=== PATIENT | male | born 1950 | race Caucasian/White ===

== ENCOUNTER 2016-04-01 06:29 | Day surgery (SDC) | payer BC, OTHER ==
[2016-04-01 07:31] VITALS: BMI 23.0
[2016-04-01] MEDS ORDERED: PROPOFOL 20 ML ONE ×3 (08:08)
[2016-04-01] MEDS ORDERED: LIDOCAINE HCL/PF 1% SDV 5ML VIAL ONE (08:08)
[2016-04-01] MEDS ORDERED: BACITRACIN 0.9 GM PACKET ONE (08:08)
[2016-04-01 12:37] VITALS: BP 120/76; PULSE 72; TEMP 97.9
--- NOTE | 2016-04-02 12:29 | PATH ---
Surgical Pathology Report Patient Name: RONALD DRAPER [facility] Rec. #: [id number] /Age/Gender: 1950 (Age: 66) / M Account: [id number] Location: ASU-ENDOSCOPY Taken: 04/01/2016 Received: 04/01/2016 Reported: 04/02/2016 Physicians: Felipe Holder M.D. Specimen(s) Received DESCENDING COLON POLYP Clinical History Screening colonoscopy Diverticulosis, descending colon polyp, grade 2 hemorrhoids Final Diagnosis COLON, DESCENDING, POLYP, POLYPECTOMY: TUBULAR ADENOMA. ADDITIONAL FRAGMENT OF FOCALLY HYPERPLASTIC COLONIC MUCOSA. Electronically Signed Inderjit Tucker M.D. Gross Description Received in formalin, labeled "descending colon polyp" are 2 russ, irregular portions of soft tissue measuring 0.3 and 0.4 cm in greatest dimension. The specimens are submitted in toto in one cassette. 04/01/201604/01/2016
== END 2016-04-01 09:55 | disposition home or self-care (01) ==
LOC: JASU-ENDO 06:29
PROVIDERS: ATTEND Internal Medicine Gastroenterology
PROC: 0DBM8ZX Excision of Descending Colon, Via Natural or Artificial Opening Endoscopic, Diagnostic (ICD-10-PCS; principal; 2016-04-01 08:00)
DX: Z12.11 Encounter for screening for malignant neoplasm of colon (principal); K57.30 Diverticulosis of large intestine without perforation or abscess without bleeding; D12.4 Benign neoplasm of descending colon; K64.8 Other hemorrhoids
CPT/HCPCS: 88305-TC

== ENCOUNTER 2016-05-16 10:26 | Inpatient (IN) | payer BC, OTHER ==
--- NOTE | 2016-05-16 10:33 | PDOC ---
History of Present Illness <Felipe Bhatt - Last Filed: 05/16/16 16:18> - History of Present Illness Initial Comments: 05/16/16 10:57 The patient is a 66 year old male with a past medical hx of COPD, former cigarette smoker who presents to the ED sent by Dr. Castillo complaining of SOB, dizziness, vomiting, and headache for a few days. The patient describes his dizziness as if the room is spinning. He notes he was vomiting when he had his first episode of dizziness. The patient reports he has not been able to eat in a few days secondary to his nausea and vomiting. The patient reports he went to see his PCP, Dr. Castillo, today who sent him to the ED for further evaluation and workup. The patient is not O2 dependent at home. He reports the last time he took Prednisone for his COPD was on Friday (4 days ago). The patient notes he is scheduled to see Dr. Lawson for this first time on May 22. He denies diarrhea, abdominal pain He denies chest pain He denies fever, chills Social: Former smoker. <Macy Mitchell - Last Filed: 05/16/16 16:25> - General Chief Complaint: Lightheaded Stated Complaint: SOB, DIZZINESS (PCP SENT) Time Seen by Provider: 05/16/16 10:32 Past History - Past Medical History Anemia: No Asthma: No COPD: Yes (HX OF PNEUMONIA) GI Disorders: Yes (COLON POLYPS) - Surgical History Abdominal Surgery: Yes (LT INGUINAL AND UMBILICAL) Orthopedic Surgery: Yes (RT ROTATOR CUFF SHOULDER) - Psycho/Social/Smoking Cessation Hx Anxiety: No Suicidal Ideation: No Smoking History: Former smoker Have you smoked in the past 12 months: No If you are a former smoker, when did you quit?: 1987 Information on smoking cessation initiated: No Hx Alcohol Use: No Drug/Substance Use Hx: No Substance Use Type: None Hx Substance Use Treatment: No <Felipe Bhatt - Last Filed: 05/16/16 16:18> <Macy Mitchell - Last Filed: 05/16/16 16:25> - Past Medical History Allergies/Adverse Reactions: Allergies Allergy/AdvReac Type Severity Reaction Status Date / Time morphine AdvReac Severe Vomiting Verified 05/16/16 12:43 oxycodone AdvReac Severe Vomiting Verified 05/16/16 12:43 Home Medications: Ambulatory Orders Fluticasone/Salmeterol [Advair 250-50 Diskus] 500 each IH BID 04/22/15 Acidophilus/Bifido Longum [Lactobacillus Capsule] 16 mg PO DAILY #14 capsule 01/02 Albuterol Sulfate [Proair Respiclick] 90 mcg IH PRN #1 aer.pow.[email or web address] 04/28/15 Roflumilast [Daliresp -] 500 mcg PO DAILY #30 tablet 04/28/15 Aspirin Coated [Ecotrin -] 81 mg PO DAILY #0 08/25/15 Atorvastatin Calcium 10 mg PO HS 08/25/15 Zolpidem Tartrate [Zolpidem Tartrate ER] 12.5 mg PO DAILY 08/25/15 Betamethasone/Propylene Glyc [Betamethasone Dp Aug 0.05% Crm] 15 gm TP DAILY Cholecalciferol (Vitamin D3) [Vitamin D3 -] 1,000 unit PO DAILY 04/01/16 Gabapentin [Neurontin -] 200 mg PO 0600,1200,1800 04/01/16 Gabapentin [Neurontin] 300 mg PO DAILY 04/01/16 Review of Systems - Review of Systems Able to Perform ROS?: Yes Comments:: 05/16/16 10:58 GENERAL/CONSTITUTIONAL: No fever or chills. No weakness. HEAD, EYES, EARS, NOSE AND THROAT: No change in vision. No ear pain or discharge. No sore throat. CARDIOVASCULAR: No chest pain RESPIRATORY: +Shortness of breath. No cough, wheezing, or hemoptysis. GASTROINTESTINAL: +Nausea, vomiting. No diarrhea or constipation. GENITOURINARY: No dysuria, frequency, or change in urination. MUSCULOSKELETAL: No joint or muscle swelling or pain. No neck or back pain. SKIN: No rash NEUROLOGIC: +Dizziness, headache. No loss of consciousness, or change in strength/sensation. ENDOCRINE: No increased thirst. No abnormal weight change. HEMATOLOGIC/LYMPHATIC: No anemia, easy bleeding, or history of blood clots. ALLERGIC/IMMUNOLOGIC: No hives or skin allergy. <Macy Mitchell - Last Filed: 05/16/16 16:25> *Physical Exam - Vital Signs Last Vital Signs Temp Pulse Resp BP Pulse Ox 97.6 F 82 18 116/68 92 L 05/16/16 10:29 05/16/16 10:29 05/16/16 10:29 05/16/16 10:29 05/16/16 10:29 <Felipe Bhatt - Last Filed: 05/16/16 16:18> - Vital Signs Last Vital Signs Temp Pulse Resp BP Pulse Ox 97.6 F 82 18 116/68 92 L 05/16/16 10:29 05/16/16 10:29 05/16/16 10:29 05/16/16 10:29 05/16/16 10:29 - Physical Exam Comments: 05/16/16 10:58 GENERAL: Awake, alert, and fully oriented, in no acute distress HEAD: No signs of trauma EYES: +Nystagmus. PERRLA, EOMI, sclera anicteric, conjunctiva clear ENT: Auricles normal inspection, hearing grossly normal, nares patent, oropharynx clear without exudates. Moist mucosa NECK: Normal ROM, supple, no lymphadenopathy, JVD, or masses LUNGS: +Diffuse wheezing and rhonchi. HEART: Regular rate and rhythm, normal S1 and S2, no murmurs, rubs or gallops ABDOMEN: Soft, nontender, normoactive bowel sounds. No guarding, no rebound. No masses EXTREMITIES: Normal range of motion, no edema. No clubbing or cyanosis. No cords, erythema, or tenderness NEUROLOGICAL: Cranial nerves II through XII grossly intact. Normal speech, normal gait SKIN: Warm, Dry, normal turgor, no rashes or lesions noted. <Macy Mitchell - Last Filed: 05/16/16 16:25> Heart Score/ECG Review - ECG Impressions Comment:: 05/16/16 11:[address] Bhatt NSR at a rate of 79 BPM Normal rate Normal axis Normal EKG <Macy Mitchell - Last Filed: 05/16/16 16:25> ED Treatment Course - LABORATORY CBC & Chemistry Diagram: 05/16/16 10:55 05/16/16 10:55 <Felipe Bhatt - Last Filed: 05/16/16 16:18> - LABORATORY CBC & Chemistry Diagram: 05/16/16 10:55 05/16/16 10:55 - RADIOLOGY Radiograph Interpretation: 05/16/16 12:45 Chest XRAY Vertigo. Chest 2 views. Comparison study April 24, 2015, April 22, 2015. No evidence of widening of the superior mediastinum. Calcified aortic arch. The cardiac silhouette is not enlarged. Bullous changes are noted in bilateral lungs. Increased retrosternal space. No evidence of vascular congestion. No evidence of pulmonary infiltrates, atelectasis. Chronic blunting of the left costophrenic angle. Impression COPD. No evidence of pneumonia, pneumothorax. Reported By: Madi Oleary MD 05/16/16 1240 05/16/16 14:54 CT scan of the brain c-. Vertigo, dizziness. Findings. Serial axial images of the brain were obtained from foramen magnum to the cranial vertex without intravenous contrast. The study was supplemented with computer-generated coronal and sagittal reconstruction images. [employer] image was reviewed. There is no evidence of acute subarachnoid hemorrhage, acute intra-axial or extra-axial fluid collection consistent with subdural or epidural hematoma. No mass effect, midline shift, acute territorial ischemic changes, herniation or edema is present. Normal [place] matter white matter differentiation. The cortical sulci, sylvian fissures, perimesencephalic cisterns are not effaced. The CSF spaces are age-appropriate Examination of the bone windows show no fracture. The visualized paranasal sinuses and mastoid air cells are clear. Symmetrical optic globes. Unremarkable retro-orbital soft tissues. Impression. No evidence of acute intracranial hemorrhage, edema, midline shift, mass effect , or skull fracture. No CT evidence of acute territorial infarction Reported By: Madi Oleary MD 05/16/16 1426 <Macy Mitchell - Last Filed: 05/16/16 16:25> Medical Decision Making - Medical Decision Making 05/16/16 16:[address] Hammond at 1445. Called Dr. Hammond at 1600, press secretary informed he is on vacation. Placed call to Dr. Castillo at 1610, patients case was discussed. 05/16/16 16:24 The patient is a 66 year old male with a past medical hx of COPD, former cigarette smoker who presents to the ED sent by Dr. Castillo complaining of SOB, dizziness, vomiting, and headache for a few days. On physical exam, the patient has wheezing and rhonchi. The patient has an appointment with Dr. Lawson on May 22. The plan is to order labs, CXR, EKG. Discussed the patients case with Dr. Castillo who would like Dr. Bhatt to consult Dr. Lawson and Neurology. Microblogged the Hospitalist. Discussed the case with Dr. Post who agrees to admit the patient. Discussed the plan for admission with the patient who understands and agrees with the plan, all questions answered. <Macy Mitchell - Last Filed: 05/16/16 16:25> *DC/Admit/Observation/Transfer - Discharge Dispostion Admit: Yes - Attestations Physician Attestion: 05/16/16 10:33 I, Dr. Felipe Bhatt, attest that this document has been prepared under my direction and personally reviewed by me in its entirety. I further attest, that it accurately reflects all work, treatment, procedures and medical decision -making performed by me. <Felipe Bhatt - Last Filed: 05/16/16 16:18> - Attestations Scribe Attestion: 05/16/16 10:57 Documentation prepared by Macy Mitchell, acting as medical assistant prn for Felipe Bhatt MD/DO. <Macy Mitchell - Last Filed: 05/16/16 16:25> Diagnosis at time of Disposition: Vertigo, Acute exacerbation of COPD with asthma Intractable nausea and vomiting Qualifiers: Vomiting type: unspecified Qualified Code(s): R11.2 - Nausea with vomiting, unspecified - Discharge Dispostion Condition at time of disposition: Improved - Referrals Referrals: Dm Castillo MD [Primary Care Provider] -
[2016-05-16] MEDS ORDERED: ALBUTEROL SO4 0.083% IH SOL 2.5 MG/3 ML VIAL.NEB. NEB ONE (10:49)
[2016-05-16] MEDS ORDERED: ALBUTEROL SO4 2.5/IPRATROPIUM 0.5 INH SOL 3 ML VIAL.NEB. NEB ONE ×2 (10:49→11:01)
[2016-05-16] MEDS ORDERED: methylPREDNISolone NA SUCC 125 MG/2 ML VIAL IVPB ONE (10:49)
[2016-05-16] MEDS ORDERED: ONDANSETRON 4 MG/2 ML VIAL IVPB ONE ×2 (10:49→13:12)
[2016-05-16] MEDS ORDERED: MECLIZINE HCL 25 MG TABLET (FP) PO ONE (10:49)
[2016-05-16] MEDS ORDERED: MECLIZINE HCL 25 MG TABLET (FP) ONE (11:00)
[2016-05-16] MEDS ORDERED: ONDANSETRON 4 MG/2 ML VIAL ONE ×3 (11:01→13:25)
[2016-05-16] MEDS ORDERED: methylPREDNISolone NA SUCC 125 MG/2 ML VIAL ONE (11:01)
[2016-05-16 11:10] LABS: MCH 31.2 pg (25.7-33.7); MCHC 31.9 g/dl (32.0-35.9); MEAN CELL VOLUME 97.8 fl (80-96); MEAN PLT VOLUME 7.3 fl (7.5-11.1); PLATELET COUNT 230 K/MM3 (134-434); RDW 13.5 % (11.9-15.9)
[2016-05-16 11:55] LABS: ALBUMIN 3.2 g/dl (3.4-5.0); ANION GAP 9 (8-16); BILIRUBIN,TOTAL 1.4 mg/dL (0.2-1.0); CALCIUM 9.1 mg/dL (8.5-10.1); CO2 29 mmol/L (21-32); GLUCOSE,RANDOM 84 mg/dL (74-106); SGOT/AST 16 U/L (15-37); SGPT/ALT 27 U/L (12-78); TOT PROT 6.4 g/dl (6.4-8.2)
[2016-05-16 11:57] LABS: ALK PHOS 93 U/L (45-117); TROPONIN I < 0.02 ng/ml (0.00-0.05)
[2016-05-16 12:00] LABS: INR 1.21 (0.82-1.09); PROTHROMBIN TIME (PATIENT) 13.4 SEC (9.98-11.88)
[2016-05-16 12:08] LABS: PLATELET ESTIMATE ADEQUATE (NORMAL)
--- NOTE | 2016-05-16 12:17 | EKG ---
Test Reason : Blood Pressure : / mmHG Vent. Rate : 079 BPM Atrial Rate : 079 BPM P-R Int : 124 ms QRS Dur : 080 ms QT Int : 390 ms P-R-T Axes : -12 065 052 degrees QTc Int : 447 ms NORMAL SINUS RHYTHM NORMAL ECG WHEN COMPARED WITH ECG OF 24-APR-2015 16:43, NO SIGNIFICANT CHANGE WAS FOUND Confirmed by MERCEDSE RICHARDSON MD ([id number]) on 05/16/2016 12:17:24 PM Referred By: Confirmed By:MERCEDES RICHARDSON MD
[2016-05-16] MEDS ORDERED: PROCHLORPERAZINE INJECTION 10 MG/2 ML VIAL IVPB ONE (13:12)
[2016-05-16] MEDS ORDERED: PROMETHAZINE HCL 50 MG/1 ML AMP IM ONE (13:32)
[2016-05-16] MEDS ORDERED: PROMETHAZINE HCL 25 MG/1 ML VIAL ONE (13:32)
[2016-05-16] MEDS ORDERED: LORazepam 1 MG TABLET PO ONE (16:07)
[2016-05-16] MEDS ORDERED: LORazepam 0.5 MG TABLET ONE (16:14)
[2016-05-16] MEDS ORDERED: LEVOFLOXACIN 750 MG IVPB 150 ML IVPB ONE ×2 (16:17→16:30)
--- NOTE | 2016-05-16 17:12 | HP ---
PCP: Dm Castillo CHIEF COMPLAINT: Shortness of breath HISTORY OF PRESENT ILLNESS: This is a 66-year-old man who comes to the ER complaining of shortness of breath. He has a history of COPD. He has been feeling more short of breath than usual for about one week. He has had a cough that was initially productive of white sputum but is now non-productive. He denies fever, chills, chest pain, palpitations, leg edema. He has also been feeling dizzy with headache, nausea and vomiting for the last few days. He felt like the room was spinning. The dizziness is worse when sitting or standing. He denies ear pain, tinnitus, visual changes, facial pain, nasal congestion. He has been on oral steroids intermittently. PAST MEDICAL HISTORY COPD Hyperlipidemia PAST SURGICAL HISTORY Left inguinal hernia repair Umbilical hernia repair Right rotator cuff repair Allergies morphine Adverse Reaction (Severe, Verified 05/16/16 12:43) Vomiting oxycodone Adverse Reaction (Severe, Verified 05/16/16 12:43) Vomiting HOME MEDICATIONS 3 Medication Instructions Recorded Fluticasone/Salmeterol [Advair 500 each IH BID 04/22/15 250-50 Diskus] Acidophilus/Bifido Longum 16 mg PO DAILY #14 capsule 04/28/15 [Lactobacillus Capsule] Albuterol Sulfate [Proair 90 mcg IH PRN #1 aer.pow.ba 04/28/15 Respiclick] Roflumilast [Daliresp -] 500 mcg PO DAILY #30 tablet 04/28/15 Aspirin Coated [Ecotrin -] 81 mg PO DAILY #0 08/25/15 Atorvastatin Calcium 10 mg PO HS 08/25/15 Zolpidem Tartrate [Zolpidem 12.5 mg PO DAILY 08/25/15 Tartrate ER] Betamethasone/Propylene Glyc 15 gm TP DAILY 04/01/16 [Betamethasone Dp Aug 0.05% Crm] Cholecalciferol (Vitamin D3) 1,000 unit PO DAILY 04/01/16 [Vitamin D3 -] Gabapentin [Neurontin -] 200 mg PO 0600,1200,1800 04/01/16 Gabapentin [Neurontin] 300 mg PO DAILY 04/01/16 Social History: Smoking: Quit in 1969 Alcohol: Denies Drugs: Denies Works as a plasterer Recent Travel: No Family History: Non-contributory REVIEW OF SYSTEMS CONSTITUTIONAL: Absent: fever, chills, diaphoresis, generalized weakness, malaise, loss of appetite, weight change HEENT: Absent: rhinorrhea, nasal congestion, throat pain, throat swelling, difficulty swallowing, mouth swelling, ear pain, eye pain, visual changes CARDIOVASCULAR: Absent: chest pain, syncope, palpitations, peripheral edema RESPIRATORY: Present: cough, shortness of breath, dyspnea with exertion. Absent : orthopnea, wheezing, stridor, hemoptysis GASTROINTESTINAL: Present: nausea, vomiting. Absent: abdominal pain, abdominal distension, diarrhea, constipation, melena, hematochezia GENITOURINARY: Absent: dysuria, frequency, urgency, hesitancy, hematuria, flank pain MUSCULOSKELETAL: Absent: myalgia, arthralgia, joint swelling, back pain, neck pain SKIN: Absent: rash, itching, pallor HEMATOLOGIC/IMMUNOLOGIC: Absent: easy bleeding, easy bruising, lymphadenopathy, frequent infections ENDOCRINE: Absent: unexplained weight gain, unexplained weight loss, heat intolerance, cold intolerance NEUROLOGIC: Present: dizziness. Absent: headache, focal weakness, paresthesias , unsteady gait, seizure, mental status changes, bladder or bowel incontinence PSYCHIATRIC: Absent: anxiety, depression, suicidal or homicidal ideation, hallucinations. PHYSICAL EXAMINATION Vital Signs Period Temp Pulse Resp BP Sys/Spence Pulse Ox Last 24 Hr 97.6 F 82-82 18-22 110-116/68-73 92-95 GENERAL: Awake, alert, and fully oriented, in no acute distress. HEAD: Normal with no signs of trauma. EYES: Pupils equal, round and reactive to light, extraocular movements intact, sclerae anicteric, conjunctivae clear. EARS, NOSE, THROAT: Ears normal, nares patent, oropharynx clear without exudates. Moist mucous membranes. NECK: Normal range of motion, supple without lymphadenopathy, JVD, or masses. LUNGS: Diminished breath sounds bilaterally. No accessory muscle use. HEART: Regular rate and rhythm, normal S1 and S2 without murmur, rub or gallop. ABDOMEN: Soft, nontender, not distended, normoactive bowel sounds, no guarding, no rebound, no masses. No hepatomegaly or splenomegaly. MUSCULOSKELETAL: Normal range of motion at all joints. No bony deformities or tenderness. No CVA tenderness. UPPER EXTREMITIES: 2+ pulses, warm, well-perfused. No cyanosis. No clubbing. No peripheral edema. LOWER EXTREMITIES: 2+ pulses, warm, well-perfused. No calf tenderness. No peripheral edema. NEUROLOGICAL: Cranial nerves II-XII intact. Normal speech. Visual velasquez intact. Strength intact, Sensation intact. PSYCHIATRIC: Cooperative. Good eye contact. Appropriate mood and affect. SKIN: Warm, dry, normal turgor, no rashes or lesions noted, normal capillary refill. Laboratory Tests 05/16/16 05/16/16 05/16/16 10:55 10:55 10:55 WBC 31.0 H* D RBC 4.61 Hgb 14.4 Hct 45.1 MCV 97.8 H MCHC 31.9 L RDW 13.5 Plt Count 230 MPV 7.3 L Neutrophils % 91.0 H Lymphocytes % 6.0 L Monocytes % 2.0 L D Band Neutrophils 1.0 D Differential Comment Manual diff done Platelet Estimate Adequate INR 1.21 H Sodium 140 Potassium 4.0 Chloride 102 Carbon Dioxide 29 Anion Gap 9 BUN 12 D Creatinine 1.0 D Creat Clearance w eGFR > 60 Random Glucose 84 Calcium 9.1 Total Bilirubin 1.4 H D AST 16 D ALT 27 D Alkaline Phosphatase 93 D Creatine Kinase 60 Troponin I < 0.02 D Total Protein 6.4 Albumin 3.2 L Chest x-ray: COPD. No acute process. EKG: Sinus rhythm, rate 79. No ischemic changes. Head CT: No hemorrhage, mass, infarct. ASSESSMENT/PLAN: This is a 66-year-old man with a history of COPD and hyperlipidemia who presented to the ER complaining of cough, SOB, headache, nausea, vomiting. He is afebrile but has WBC 31.0. He is being admitted now for treatment of an emergent condition. 1. Acute exacerbation of COPD - SoluMedrol, DuoNeb, Levaquin, oxygen to keep saturation > 90% - Hold Advair, Spiriva - Continue Daliresp - Pulmonary consult 2. Probable viral URI with labyrinthitis - Meclizine as needed for dizziness - Zofran as needed for nausea - IV fluid 3. Leukocytosis - Possibly secondary to recent steroid use - Monitor WBC 4. Hyperlipidemia - Continue Lipitor Problem List - Problem (1) Acute exacerbation of chronic obstructive pulmonary disease Code(s): J44.1 - CHRONIC OBSTRUCTIVE PULMONARY DISEASE W (ACUTE) EXACERBATION (2) Leukocytosis Code(s): D72.829 - ELEVATED WHITE BLOOD CELL COUNT, UNSPECIFIED (3) Intractable nausea and vomiting Code(s): R11.2 - NAUSEA WITH VOMITING, UNSPECIFIED Qualifiers: Vomiting type: unspecified Qualified Code(s): R11.2 - Nausea with vomiting, unspecified (4) Vertigo Code(s): R42 - DIZZINESS AND GIDDINESS (5) Hyperlipidemia Code(s): E78.5 - HYPERLIPIDEMIA, UNSPECIFIED Visit type - Emergency Visit Emergency Visit: Yes ED Registration Date: 05/16/16 Care time: The patient presented to the Emergency Department on the above date and was hospitalized for further evaluation of their emergent condition. - New Patient This patient is new to me today: Yes Date on this admission: 05/16/16 - Critical Care Critical Care patient: No
[2016-05-16] MEDS ORDERED: ACETAMINOPHEN 325 MG TABLET (FP) PO PRN (17:14)
[2016-05-16] MEDS ORDERED: ONDANSETRON 4 MG/2 ML VIAL IVPB PRN (17:14)
[2016-05-16] MEDS ORDERED: MECLIZINE HCL 25 MG TABLET (FP) PO PRN (18:18)
[2016-05-16 18:28] VITALS: BMI 22.4
[2016-05-16] MEDS: PANTOPRAZOLE 40 MG TABLET (FP) PO SCH (19:12)
[2016-05-16] MEDS: GABAPENTIN 100 MG CAPSULE (FP) PO SCH (19:12)
[2016-05-16] MEDS: HEPARIN NA (PORCINE) 5,000 UNITS/ML 1ML VIAL SQ SCH (19:13)
[2016-05-16] MEDS: methylPREDNISolone NA SUCC 40 MG/1 ML VIAL IVPB SCH (19:13)
[2016-05-16] MEDS: SODIUM CHLORIDE 1,000 ML IV SCH (19:13)
[2016-05-16] MEDS: ATORVASTATIN CA 10 MG TABLET (FP) PO SCH (21:43)
[2016-05-16] MEDS ORDERED: clonazePAM 0.5 MG TABLET PO ONE (22:26)
[2016-05-16] MEDS: ALBUTEROL SO4 2.5/IPRATROPIUM 0.5 INH SOL 3 ML VIAL.NEB. NEB SCH (23:36)
[2016-05-17] MEDS: methylPREDNISolone NA SUCC 40 MG/1 ML VIAL IVPB SCH ×3 (02:09→17:53)
[2016-05-17] MEDS: HEPARIN NA (PORCINE) 5,000 UNITS/ML 1ML VIAL SQ SCH ×3 (02:09→17:53)
[2016-05-17] MEDS: ALBUTEROL SO4 2.5/IPRATROPIUM 0.5 INH SOL 3 ML VIAL.NEB. NEB SCH ×2 (06:02→11:42)
[2016-05-17] MEDS: GABAPENTIN 100 MG CAPSULE (FP) PO SCH ×3 (06:03→18:41)
[2016-05-17 08:11] LABS: CALCIUM 8.9 mg/dL (8.5-10.1); CREATININE 0.9 mg/dL (0.7-1.3)
[2016-05-17 08:26] LABS: MCH 32.3 pg (25.7-33.7); MCHC 32.8 g/dl (32.0-35.9); MEAN CELL VOLUME 98.3 fl (80-96); MEAN PLT VOLUME 7.9 fl (7.5-11.1); NEUTROPHILS 94.3 % (42.8-82.8); PLATELET COUNT 225 K/MM3 (134-434); RDW 13.5 % (11.9-15.9); WHITE BLOOD COUNT 19.7 K/mm3 (4.0-10.0)
[2016-05-17] MEDS ORDERED: PT OWN MED DRAWER 7, Y5N ONE ×2 (08:58→21:39)
[2016-05-17] MEDS: CHOLECALCIFEROL (VITAMIN D3) 1,000 UNIT TABLET (FP) PO SCH (09:00)
[2016-05-17] MEDS: LEVOFLOXACIN 500 MG TABLET (FP) PO SCH (09:00)
[2016-05-17] MEDS: PANTOPRAZOLE 40 MG TABLET (FP) PO SCH (09:00)
[2016-05-17] MEDS: LACTOBACILLUS ACIDOPHILUS 1 EACH TAB (FP) PO SCH (09:00)
[2016-05-17] MEDS: ASPIRIN COATED 81 MG TABLET.EC PO SCH (09:00)
[2016-05-17] MEDS: ROFLUMILAST 500 MCG TABLET PO SCH (09:01)
[2016-05-17] MEDS: SODIUM CHLORIDE 1,000 ML IV SCH ×3 (09:01→22:22)
[2016-05-17] MEDS ORDERED: [UNRECOGNIZED DRUG - OTHER] PO SCH (10:00)
--- NOTE | 2016-05-17 12:33 | CONSULT ---
Consult Consult Specialty:: Neurology Reason for Consultation:: Dizziness - History of Present Illness Chief Complaint: Lightheaded History of Present Illness: 66 year old man, history of COPD, presents to ED with shortness of breath secondary to COPD exacerbation. As per records, the patient was feeling more short of breath compared to his baseline and is also noting a non productive cough. He also noted yesterday a ten hour episode of lightheadedness, associated with nausea and vomiting. He denies any room spinning sensation. No ear pain, tinnitus, previous history of similar episodes. CT head completed showed no acute pathology Patient states his symptoms have completely resolved and currently denies any lightheadedness. - Past Medical History Cardio/Vascular: Yes: Hyperlipdemia Pulmonary: Yes: COPD - Alcohol/Substance Use Hx Alcohol Use: No - Smoking History Smoking history: Former smoker Have you smoked in the past 12 months: No If you are a former smoker, when did you quit?: 1987 - Social History Usual Living Arrangement: With Spouse ADL: Independent Occupation: Works in construction Home Medications - Allergies Allergies/Adverse Reactions: Allergies Allergy/AdvReac Type Severity Reaction Status Date / Time morphine AdvReac Severe Vomiting Verified 05/16/16 12:43 oxycodone AdvReac Severe Vomiting Verified 05/16/16 12:43 - Home Medications Home Medications: Ambulatory Orders Fluticasone/Salmeterol [Advair 250-50 Diskus] 500 each IH BID 04/22/15 Acidophilus/Bifido Longum [Lactobacillus Capsule] 16 mg PO DAILY #14 capsule 01/02 Roflumilast [Daliresp -] 500 mcg PO DAILY #30 tablet 04/28/15 Aspirin Coated [Ecotrin -] 81 mg PO DAILY #0 08/25/15 Atorvastatin Calcium 10 mg PO WEEKLY 08/25/15 Zolpidem Tartrate [Zolpidem Tartrate ER] 12.5 mg PO HS 08/25/15 Betamethasone/Propylene Glyc [Betamethasone Dp Aug 0.05% Crm] 15 gm TP DAILY Cholecalciferol (Vitamin D3) [Vitamin D3 -] 1,000 unit PO DAILY 04/01/16 Gabapentin [Neurontin -] 200 mg PO 0600,1200,1800 04/01/16 Gabapentin [Neurontin] 300 mg PO DAILY 04/01/16 Albuterol Sulfate Inhaler - [Ventolin Hfa Inhaler -] 1 - 2 inh PO Q4H PRN Albuterol Sulfate [Proair Respiclick] 90 mcg IH DAILY 05/16/16 Tiotropium [place] [Spiriva] 18 mcg IH DAILY 05/16/16 Family Disease History - Family Disease History Family Disease History: Heart Disease: Father, CA: Mother Review of Systems - Review of Systems Constitutional: reports: No Symptoms Eyes: reports: No Symptoms HENT: reports: No Symptoms Cardiovascular: reports: No Symptoms Respiratory: reports: Cough, SOB Neurological: reports: Dizziness Physical Exam Vital Signs: Vital Signs Temperature 97.5 F L 05/17/16 05:44 Pulse Rate 72 05/17/16 11:41 Respiratory Rate 20 05/17/16 05:44 Blood Pressure 95/58 05/17/16 05:44 O2 Sat by Pulse Oximetry (%) 99 05/17/16 11:41 Constitutional: Yes: No Distress, Calm Eyes: Yes: Conjunctiva Clear, EOM Intact HENT: Yes: Atraumatic, Normocephalic Cardiovascular: Yes: S1, S2 Neurological: Yes: Alert, Oriented, Cran Nerves II-XII Intact ...Motor Strength: WNL Labs: CBC, BMP 05/17/16 06:00 05/17/16 06:00 Assessment/Plan 66 year old man, history of COPD, presents to ED with shortness of breath secondary to COPD exacerbation. As per records, the patient was feeling more short of breath compared to his baseline and is also noting a non productive cough. He also noted yesterday a ten hour episode of lightheadedness, associated with nausea and vomiting. He denies any room spinning sensation. No ear pain, tinnitus, previous history of similar episodes. CT head completed showed no acute pathology Patient states his symptoms have completely resolved and currently denies any lightheadedness. Lightheadedness, likely related to COPD exacerbation/underlying medical condition Exam non focal Symptoms have resolved CT head shows no acute findings Recommend medical management Please call neurology if further questions, no further neurologic testing required at this time
--- NOTE | 2016-05-17 16:26 | PN ---
Physical Exam: SUBJECTIVE: Patient seen and examined. Brother at bedside. Feels SOB. OBJECTIVE: Vital Signs Period Temp Pulse Resp BP Sys/Spence Pulse Ox Last 24 Hr 97.2 F-98.6 F 72-94 16-20 95-111/58-66 94-99 GENERAL: The patient is awake, alert, and fully oriented, in no acute distress. HEAD: Normal with no signs of trauma. EYES: PERRL, extraocular movements intact, sclera anicteric, conjunctiva clear. No ptosis. ENT: Ears normal, nares patent, oropharynx clear without exudates, moist mucous membranes. LUNGS: Diminished breath sounds, poor air movement HEART: Regular rate and rhythm, S1, S2 without murmur, rub or gallop. ABDOMEN: Soft, nontender, nondistended, normoactive bowel sounds, no guarding, no rebound, no hepatosplenomegaly, no masses. EXTREMITIES: 2+ pulses, warm, well-perfused, no edema. NEUROLOGICAL: Cranial nerves II through XII grossly intact. Normal speech, gait not observed. Laboratory Results - last 24 hr 05/17/16 05/17/16 06:00 06:00 WBC 19.7 H D RBC 4.06 Hgb 13.1 Hct 39.9 MCV 98.3 H MCHC 32.8 RDW 13.5 Plt Count 225 MPV 7.9 Neutrophils % 94.3 H Lymphocytes % 3.3 L D Monocytes % 2.4 L Eosinophils % 0.0 Basophils % 0.0 Sodium 143 Potassium 4.2 Chloride 107 Carbon Dioxide 27 Anion Gap 9 BUN 17 D Creatinine 0.9 Random Glucose 129 H D Calcium 8.9 Active Medications Generic Name Dose Route Start Last Admin Trade Name Freq PRN Reason Stop Dose Admin Acetaminophen 650 mg 05/16/16 17:14 Tylenol - PO Q4H PRN FEVER OR PAIN Albuterol Sulfate 1 amp 05/16/16 18:29 Ventolin 0.083% Nebulizer Soln - NEB Q4H PRN SHORT OF BREATH/WHEEZING Albuterol/Ipratropium 1 amp 05/17/16 00:00 05/17/16 11:42 Duoneb - NEB 1 amp QIDR FRIEDA Administration Aspirin 81 mg 05/17/16 10:00 05/17/16 09:00 Ecotrin - PO 81 mg DAILY FRIEDA Administration Atorvastatin Calcium 10 mg 05/16/16 22:00 05/16/16 21:43 Lipitor - PO 10 mg HS FRIEDA Administration Cholecalciferol 1,000 unit 05/17/16 10:00 05/17/16 09:00 Vitamin D3 - PO 1,000 unit DAILY FRIEDA Administration Diphenhydramine HCl 12.5 mg 05/16/16 17:20 05/16/16 19:12 Benadryl Injection - IVPUSH 12.5 mg Q4H PRN Administration AGITATION Gabapentin 200 mg 05/16/16 18:00 05/17/16 12:49 Neurontin - PO 200 mg 0600,1200,1800 FRIEDA Administration Heparin Sodium (Porcine) 5,000 unit 05/16/16 18:00 05/17/16 09:00 Heparin - SQ 5,000 unit Q8H-IV FRIEDA Administration Sodium Chloride 1,000 mls @ 75 mls/hr 05/16/16 18:30 05/17/16 09:01 Normal Saline - IV 75 mls/hr ASDIR FRIEDA Administration Lactobacillus Acidophilus 1 tab 05/17/16 10:00 05/17/16 09:00 Bacid - PO 1 tab DAILY FRIEDA Administration Levofloxacin 500 mg 05/17/16 10:00 05/17/16 09:00 Levaquin - PO 500 mg DAILY FRIEDA Administration Meclizine HCl 25 mg 05/16/16 18:18 Antivert - PO Q6H PRN VERTIGO Methylprednisolone Sodium Succinate 40 mg 05/16/16 18:00 05/17/16 09:00 Solu-Medrol - IVPB 40 mg Q8H-IV FRIEDA Administration Ondansetron HCl 4 mg 05/16/16 17:14 Zofran Injection IVPB Q6H PRN NAUSEA Pantoprazole Sodium 40 mg 05/16/16 18:30 05/17/16 09:00 Protonix - PO 40 mg DAILY FRIEDA Administration Roflumilast 500 mcg 05/17/16 10:00 05/17/16 09:01 Daliresp - PO 500 mcg DAILY FRIEDA Administration ASSESSMENT/PLAN: 66 year-old man with a history of COPD and hyperlipidemia who presented to the ER complaining of cough, SOB, headache, nausea, vomiting. 1. Acute exacerbation of COPD URI - SoluMedrol, DuoNeb, Levaquin, oxygen to keep saturation > 90% - Hold Advair, Spiriva - Continue Daliresp - Pulmonary consult - CT chest pending 2. Labyrinthitis - symptoms have resolved - seen and evaluated by neuro - Meclizine as needed for dizziness - Zofran as needed for nausea 3. Leukocytosis - Possibly secondary to recent steroid use - Monitor WBC 4. Hyperlipidemia - Continue Lipitor Visit type - Emergency Visit Emergency Visit: Yes ED Registration Date: 05/16/16 Care time: The patient presented to the Emergency Department on the above date and was hospitalized for further evaluation of their emergent condition. - New Patient This patient is new to me today: Yes Date on this admission: 05/17/16 - Critical Care Critical Care patient: No
--- NOTE | 2016-05-17 17:03 | PN ---
Progress Note (short form) - Note Progress Note: PULMONARY CONSULTATION DICTATED 05/17/16 IMP COPD EXACERBATION LIKELY URI HLD VERTIGO PLAN IV STEROIDS INHALED BRONCHODILATORS NASAL O2 ANTIBIOTICS CHEST CT PFTS OUTPATIENT DR BROCK Problem List - Problems (1) Acute exacerbation of chronic obstructive pulmonary disease Code(s): J44.1 - CHRONIC OBSTRUCTIVE PULMONARY DISEASE W (ACUTE) EXACERBATION (2) Intractable nausea and vomiting Code(s): R11.2 - NAUSEA WITH VOMITING, UNSPECIFIED Qualifiers: Vomiting type: unspecified Qualified Code(s): R11.2 - Nausea with vomiting, unspecified (3) Leukocytosis Code(s): D72.829 - ELEVATED WHITE BLOOD CELL COUNT, UNSPECIFIED (4) Vertigo Code(s): R42 - DIZZINESS AND GIDDINESS (5) Hyperlipidemia Code(s): E78.5 - HYPERLIPIDEMIA, UNSPECIFIED
[2016-05-17] MEDS: ALBUTEROL SO4 0.083% IH SOL 2.5 MG/3 ML VIAL.NEB. NEB PRN ×2 (17:14→21:33)
--- NOTE | 2016-05-17 17:43 | CONS ---
DATE OF CONSULTATION: 05/17/2016 REFERRING PHYSICIAN: Peterson Post MD HISTORY: The patient is a 66-year-old white male with a past medical history of COPD, history of hyperlipidemia admitted to [facility] with the complaint of increasing shortness of breath and cough. The patient states that he always feel short of breath. For the past week or so, he started noticing increasing shortness of breath and dyspnea on exertion. He also complained of a nonproductive cough. A day prior to admission, he complained of a 10-hour episode of lightheadedness associated with nausea and vomiting. He states he denied any head trauma. He denied any tinnitus or ear pain. On admission, he was sent to the emergency room with the above. In the ER, he underwent a CT of the head, which showed no acute pathology. He was admitted to the floor for acute exacerbation of COPD. He was started on inhaled bronchodilators and supplemental O2. The patient denies any history of DVT or PE in the past. There is no history of recent travel. He denies any fevers, chills, weight loss, or night sweats. PAST MEDICAL HISTORY: Again includes COPD and hyperlipidemia. SOCIAL HISTORY: Smoking. Quit 17 years ago. 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 MEDICATIONS: Prior to admission include Advair 250/50, Daliresp, Ecotrin, , vitamin D3, Neurontin, albuterol, Spiriva. Home medications include Solu-Medrol 40 q.8 hours, Tylenol, Levaquin, heparin, Neurontin, Bacid, Antivert, albuterol, DuoNeb, normal saline, Benadryl, Lipitor, Protonix, and Daliresp. REVIEW OF SYSTEMS: Positive shortness of breath. Positive cough. No chest pain, no palpitations, no fever, no chills, no weight loss, no night sweats, no hemoptysis, no abdominal pain. Positive nausea. Positive vomiting, which has since subsided. PHYSICAL EXAMINATION: General: The patient is a well-developed, well-nourished male awake and alert in no acute distress. Vital Signs: He is currently afebrile. Blood pressure is 100/58, O2 saturation 98% on 2 L. HEENT: Normocephalic and atraumatic. Neck: Supple. Heart: Regular with S1, S2. Chest: Bilateral crackles 1/3 up on the right. Right greater than left. Abdomen: Soft. Bowel sounds are positive. Extremities: No cyanosis or edema. LABORATORIES: WBCs 19.7, hemoglobin 13.1, hematocrit 39.9 with a platelet count of 225,000, 94 polys, 3 lymphocytes, and 2 monocytes. INR 1.21, BUN 17, creatinine 0.9. Chest x-ray reads hyperinflated lung velasquez. IMPRESSION: 1. Chronic obstructive pulmonary disease with acute exacerbation. 2. Likely viral syndrome versus bacterial upper respiratory infection.' 3. Hyperlipidemia. 4. Vertigo. Nausea and vomiting resolved. PLAN: Continue IV steroids, inhaled bronchodilators, supplemental O2. Obtain CT scan of the chest. Pulmonary function test as an outpatient. Antibiotics. JUDY BROCK M.D. [id number]
[2016-05-17] MEDS: TIOTROPIUM BROMIDE 18 MCG/INH (DEVICE W/ 5 CAPSULES) IH SCH (18:41)
[2016-05-17] MEDS: ATORVASTATIN CA 10 MG TABLET (FP) PO SCH (22:01)
[2016-05-17] MEDS: BUDESONIDE/FORMETEROL FUMARATE 160/4.5 mcg INHALER IH SCH (22:06)
[2016-05-18] MEDS: ZOLPIDEM TARTRATE 5 MG TABLET PO PRN ×2 (00:03→22:13)
[2016-05-18] MEDS: methylPREDNISolone NA SUCC 40 MG/1 ML VIAL IVPB SCH ×3 (01:08→17:52)
[2016-05-18] MEDS: HEPARIN NA (PORCINE) 5,000 UNITS/ML 1ML VIAL SQ SCH ×3 (01:08→17:52)
[2016-05-18] MEDS: ALBUTEROL SO4 0.083% IH SOL 2.5 MG/3 ML VIAL.NEB. NEB PRN (06:10)
[2016-05-18] MEDS: GABAPENTIN 100 MG CAPSULE (FP) PO SCH ×3 (06:51→17:52)
[2016-05-18] MEDS: CHOLECALCIFEROL (VITAMIN D3) 1,000 UNIT TABLET (FP) PO SCH (09:13)
[2016-05-18] MEDS: LACTOBACILLUS ACIDOPHILUS 1 EACH TAB (FP) PO SCH (09:13)
[2016-05-18] MEDS: LEVOFLOXACIN 500 MG TABLET (FP) PO SCH (09:14)
[2016-05-18] MEDS: PANTOPRAZOLE 40 MG TABLET (FP) PO SCH (09:14)
[2016-05-18] MEDS: BUDESONIDE/FORMETEROL FUMARATE 160/4.5 mcg INHALER IH SCH ×2 (09:14→22:13)
[2016-05-18] MEDS: TIOTROPIUM BROMIDE 18 MCG/INH (DEVICE W/ 5 CAPSULES) IH SCH (09:14)
[2016-05-18] MEDS: ASPIRIN COATED 81 MG TABLET.EC PO SCH (09:14)
[2016-05-18] MEDS: ROFLUMILAST 500 MCG TABLET PO SCH (09:15)
--- NOTE | 2016-05-18 11:46 | PN ---
Progress Note (short form) - Note Progress Note: Still feels congested and COLVIN. CT : moderate to severe emphysema with chronic changes Intake & Output 05/15/16 05/16/16 05/17/16 05/18/16 23:59 23:59 23:59 23:59 Intake Total 150 1850 1400 Balance 150 1850 1400 Weight 165 lb Last Vital Signs Temp Pulse Resp BP Pulse Ox 97.5 F L 86 18 118/68 99 05/18/16 09:12 05/18/16 09:12 05/18/16 09:12 05/18/16 09:12 05/17/16 21:00 Active Medications Acetaminophen (Tylenol -) 650 mg PO Q4H PRN PRN Reason: FEVER OR PAIN Albuterol Sulfate (Ventolin 0.083% Nebulizer Soln -) 1 amp NEB Q4H PRN PRN Reason: SHORT OF BREATH/WHEEZING Last Admin: 05/18/16 06:10 Dose: 1 amp Aspirin (Ecotrin -) 81 mg PO DAILY [facility] Last Admin: 05/18/16 09:14 Dose: 81 mg Atorvastatin Calcium (Lipitor -) 10 mg PO HS [facility] Last Admin: 05/17/16 22:01 Dose: 10 mg Budesonide/Formoterol Fumarate (Symbicort 160/4.5mcg -) 2 puff IH BID FRIEDA Last Admin: 05/18/16 09:14 Dose: 2 puff Cholecalciferol (Vitamin D3 -) 1,000 unit PO DAILY [facility] Last Admin: 05/18/16 09:13 Dose: 1,000 unit Diphenhydramine HCl (Benadryl Injection -) 12.5 mg IVPUSH Q4H PRN PRN Reason: AGITATION Last Admin: 05/16/16 19:12 Dose: 12.5 mg Gabapentin (Neurontin -) 200 mg PO 0600,1200,1800 [facility] Last Admin: 05/18/16 06:51 Dose: 200 mg Heparin Sodium (Porcine) (Heparin -) 5,000 unit SQ Q8H-IV FRIEDA Last Admin: 05/18/16 09:13 Dose: 5,000 unit Sodium Chloride (Normal Saline -) 1,000 mls @ 75 mls/hr IV ASDIR FRIEDA Last Admin: 05/17/16 22:22 Dose: 75 mls/hr Lactobacillus Acidophilus (Bacid -) 1 tab PO DAILY [facility] Last Admin: 05/18/16 09:13 Dose: 1 tab Levofloxacin (Levaquin -) 500 mg PO DAILY [facility] Last Admin: 05/18/16 09:14 Dose: 500 mg Meclizine HCl (Antivert -) 25 mg PO Q6H PRN PRN Reason: VERTIGO Methylprednisolone Sodium Succinate (Solu-Medrol -) 40 mg IVPB Q8H-IV [facility] Last Admin: 05/18/16 09:14 Dose: 40 mg Ondansetron HCl (Zofran Injection) 4 mg IVPB Q6H PRN PRN Reason: NAUSEA Pantoprazole Sodium (Protonix -) 40 mg PO DAILY [facility] Last Admin: 05/18/16 09:14 Dose: 40 mg Roflumilast (Daliresp -) 500 mcg PO DAILY [facility] Last Admin: 05/18/16 09:15 Dose: 500 mcg Tiotropium [place] (Spiriva -) 1 puff IH DAILY [facility] Last Admin: 05/18/16 09:14 Dose: 1 puff Zolpidem Tartrate (Ambien -) 10 mg PO HS PRN Last Admin: 05/18/16 00:03 Dose: 10 mg GENERAL: Awake and alert HEAD: Normal with no signs of trauma. EYES: sclerae anicteric, conjunctivae clear. EARS, NOSE, THROAT: Ears normal, nares patent, oropharynx clear without exudates. Moist mucous membranes. NECK: JVD, or masses. LUNGS: Few scattered rhonchi, No accessory muscle use. HEART: Regular rate and rhythm, normal S1 and S2 without murmur, rub or gallop. ABDOMEN: Soft, nontender, not distended, normoactive bowel sounds, no guarding, no rebound, no masses. No hepatomegaly or splenomegaly. MUSCULOSKELETAL: Normal range of motion at all joints. No bony deformities or tenderness. No CVA tenderness. UPPER EXTREMITIES: 2+ pulses, warm, well-perfused. No cyanosis. No clubbing. No peripheral edema. LOWER EXTREMITIES: 2+ pulses, warm, well-perfused. No calf tenderness. No peripheral edema. NEUROLOGICAL: Cranial nerves II-XII intact. Normal speech. Visual velasquez intact. Strength intact, Sensation intact. PSYCHIATRIC: Cooperative. Good eye contact. Appropriate mood and affect. SKIN: Warm, dry, normal turgor, no rashes or lesions noted, normal capillary refill. ASSESSMENT/PLAN: Suspected URI with labyrinthitis Problem List - Problem (1) Acute exacerbation of chronic obstructive pulmonary disease Code(s): J44.1 - CHRONIC OBSTRUCTIVE PULMONARY DISEASE W (ACUTE) EXACERBATION (2) Leukocytosis Code(s): D72.829 - ELEVATED WHITE BLOOD CELL COUNT, UNSPECIFIED (3) Intractable nausea and vomiting Code(s): R11.2 - NAUSEA WITH VOMITING, UNSPECIFIED Qualifiers: Vomiting type: unspecified Qualified Code(s): R11.2 - Nausea with vomiting, unspecified (4) Vertigo Code(s): R42 - DIZZINESS AND GIDDINESS (5) Hyperlipidemia Code(s): E78.5 - HYPERLIPIDEMIA, UNSPECIFIED Medrol at current dose BD TX Symbicort Daliresp O2 as needed No smoking Ambulate as tolerated Noted empiric Levaquiin [facility] D/C by Friday Dr Lawson
--- NOTE | 2016-05-18 16:33 | PN ---
Progress Note (short form) - Note Progress Note: Breathing about the same No fever O/E Heart regular Lungs b/l rales and rhonchi+ Abd soft Ext no edema Vital Signs Period Temp Pulse Resp BP Sys/Spence Pulse Ox Last 24 Hr 97.4 F-98.7 F 79-98 18-20 101-118/60-68 99-99 Current Medications Acetaminophen (Tylenol -) 650 mg PO Q4H PRN PRN Reason: FEVER OR PAIN Albuterol Sulfate (Ventolin 0.083% Nebulizer Soln -) 1 amp NEB Q4H PRN PRN Reason: SHORT OF BREATH/WHEEZING Last Admin: 05/18/16 06:10 Dose: 1 amp Aspirin (Ecotrin -) 81 mg PO DAILY [facility] Last Admin: 05/18/16 09:14 Dose: 81 mg Atorvastatin Calcium (Lipitor -) 10 mg PO HS [facility] Last Admin: 05/17/16 22:01 Dose: 10 mg Budesonide/Formoterol Fumarate (Symbicort 160/4.5mcg -) 2 puff IH BID [facility] Last Admin: 05/18/16 09:14 Dose: 2 puff Cholecalciferol (Vitamin D3 -) 1,000 unit PO DAILY [facility] Last Admin: 05/18/16 09:13 Dose: 1,000 unit Diphenhydramine HCl (Benadryl Injection -) 12.5 mg IVPUSH Q4H PRN PRN Reason: AGITATION Last Admin: 05/16/16 19:12 Dose: 12.5 mg Gabapentin (Neurontin -) 200 mg PO 0600,1200,1800 [facility] Last Admin: 05/18/16 12:10 Dose: 200 mg Heparin Sodium (Porcine) (Heparin -) 5,000 unit SQ Q8H-IV FRIEDA Last Admin: 05/18/16 09:13 Dose: 5,000 unit Sodium Chloride (Normal Saline -) 1,000 mls @ 75 mls/hr IV ASDIR [facility] Last Admin: 05/17/16 22:22 Dose: 75 mls/hr Lactobacillus Acidophilus (Bacid -) 1 tab PO DAILY FRIEDA Last Admin: 05/18/16 09:13 Dose: 1 tab Levofloxacin (Levaquin -) 500 mg PO DAILY [facility] Last Admin: 05/18/16 09:14 Dose: 500 mg Meclizine HCl (Antivert -) 25 mg PO Q6H PRN PRN Reason: VERTIGO Methylprednisolone Sodium Succinate (Solu-Medrol -) 40 mg IVPB Q8H-IV [facility] Last Admin: 05/18/16 09:14 Dose: 40 mg Ondansetron HCl (Zofran Injection) 4 mg IVPB Q6H PRN PRN Reason: NAUSEA Pantoprazole Sodium (Protonix -) 40 mg PO DAILY [facility] Last Admin: 05/18/16 09:14 Dose: 40 mg Roflumilast (Daliresp -) 500 mcg PO DAILY [facility] Last Admin: 05/18/16 09:15 Dose: 500 mcg Tiotropium [place] (Spiriva -) 1 puff IH DAILY [facility] Last Admin: 05/18/16 09:14 Dose: 1 puff Zolpidem Tartrate (Ambien -) 10 mg PO HS PRN Last Admin: 05/18/16 00:03 Dose: 10 mg A&P (1) Acute exacerbation of chronic obstructive pulmonary disease Code(s): J44.1 - CHRONIC OBSTRUCTIVE PULMONARY DISEASE W (ACUTE) EXACERBATION Cont present care, with Honey combing seen in the CT overall prognosis is not good. (2) Leukocytosis Code(s): D72.829 - ELEVATED WHITE BLOOD CELL COUNT, UNSPECIFIED Probably steriod induced. No fever. Cont to f/u (5) Hyperlipidemia Code(s): E78.5 - HYPERLIPIDEMIA, UNSPECIFIED
[2016-05-18] MEDS: SODIUM CHLORIDE 1,000 ML IV SCH ×2 (19:27→22:16)
[2016-05-18] MEDS: ATORVASTATIN CA 10 MG TABLET (FP) PO SCH (22:14)
[2016-05-19] MEDS: HEPARIN NA (PORCINE) 5,000 UNITS/ML 1ML VIAL SQ SCH ×3 (01:37→18:36)
[2016-05-19] MEDS: methylPREDNISolone NA SUCC 40 MG/1 ML VIAL IVPB SCH ×3 (01:37→18:36)
[2016-05-19] MEDS: GABAPENTIN 100 MG CAPSULE (FP) PO SCH ×3 (06:18→18:36)
[2016-05-19] MEDS: ALBUTEROL SO4 0.083% IH SOL 2.5 MG/3 ML VIAL.NEB. NEB PRN ×2 (09:45→17:06)
[2016-05-19] MEDS: PANTOPRAZOLE 40 MG TABLET (FP) PO SCH (09:56)
[2016-05-19] MEDS: CHOLECALCIFEROL (VITAMIN D3) 1,000 UNIT TABLET (FP) PO SCH (09:56)
[2016-05-19] MEDS: LEVOFLOXACIN 500 MG TABLET (FP) PO SCH (09:56)
[2016-05-19] MEDS: ASPIRIN COATED 81 MG TABLET.EC PO SCH (09:56)
[2016-05-19] MEDS: BUDESONIDE/FORMETEROL FUMARATE 160/4.5 mcg INHALER IH SCH ×2 (09:56→22:21)
[2016-05-19] MEDS: TIOTROPIUM BROMIDE 18 MCG/INH (DEVICE W/ 5 CAPSULES) IH SCH (09:56)
[2016-05-19] MEDS: LACTOBACILLUS ACIDOPHILUS 1 EACH TAB (FP) PO SCH (09:56)
--- NOTE | 2016-05-19 10:56 | PN ---
Progress Note (short form) - Note Progress Note: Reports feeling more congested and increased COLVIN when ambulating to the bathroom. No CP. GENERAL: Awake and alert HEAD: Normal with no signs of trauma. EYES: sclerae anicteric, conjunctivae clear. EARS, NOSE, THROAT: Moist mucous membranes. NECK: JVD, or masses. LUNGS: Few scattered rhonchi, No wheeze heard today, No accessory muscle use. HEART: Regular rate and rhythm, normal S1 and S2 without murmur, rub or gallop. ABDOMEN: Soft, nontender, not distended, normoactive bowel sounds, no guarding, no rebound, no masses. No hepatomegaly or splenomegaly. MUSCULOSKELETAL: Normal range of motion at all joints. No bony deformities or tenderness. No CVA tenderness. UPPER EXTREMITIES: No cyanosis. No clubbing. No peripheral edema. LOWER EXTREMITIES: No calf tenderness. No peripheral edema. NEUROLOGICAL: Non-focal PSYCHIATRIC: Cooperative. Good eye contact. Appropriate mood and affect. SKIN: Warm, dry, normal turgor, no rashes or lesions noted, normal capillary refill. ASSESSMENT/PLAN: Suspected URI with labyrinthitis Problem List - Problem (1) Acute exacerbation of chronic obstructive pulmonary disease Code(s): J44.1 - CHRONIC OBSTRUCTIVE PULMONARY DISEASE W (ACUTE) EXACERBATION (2) Leukocytosis Code(s): D72.829 - ELEVATED WHITE BLOOD CELL COUNT, UNSPECIFIED (3) Intractable nausea and vomiting Code(s): R11.2 - NAUSEA WITH VOMITING, UNSPECIFIED Qualifiers: Vomiting type: unspecified Qualified Code(s): R11.2 - Nausea with vomiting, unspecified (4) Vertigo Code(s): R42 - DIZZINESS AND GIDDINESS (5) Hyperlipidemia Code(s): E78.5 - HYPERLIPIDEMIA, UNSPECIFIED Add standing albuterol with mucomyst BID Medrol at current dose BD TX Symbicort Daliresp Spiriva O2 as needed No smoking Ambulate as tolerated Noted empiric Levaquiin Dr Lawson
[2016-05-19] MEDS: ROFLUMILAST 500 MCG TABLET PO SCH (11:00)
--- NOTE | 2016-05-19 19:56 | PN ---
Progress Note (short form) - Note Progress Note: Breathing is about the same No fever O/E Heart regular Lungs VB B?L rhonchi+ Abd soft Ext no edema Vital Signs Period Temp Pulse Resp BP Sys/Spence Pulse Ox Last 24 Hr 97.4 F-98.7 F 62-78 18-20 100-125/63-72 97 Current Medications Acetaminophen (Tylenol -) 650 mg PO Q4H PRN PRN Reason: FEVER OR PAIN Acetylcysteine (Mucomyst 20 Oral / Inh Use Only*) 200 mg NEB BID FRIEDA Albuterol Sulfate (Ventolin 0.083% Nebulizer Soln -) 1 amp NEB Q4H PRN PRN Reason: SHORT OF BREATH/WHEEZING Last Admin: 05/19/16 17:06 Dose: 1 amp Albuterol Sulfate (Ventolin 0.083% Nebulizer Soln -) 1 amp NEB BID FRIEDA Aspirin (Ecotrin -) 81 mg PO DAILY [facility]RIEDA Last Admin: 05/19/16 09:56 Dose: 81 mg Atorvastatin Calcium (Lipitor -) 10 mg PO HS [facility] Last Admin: 05/18/16 22:14 Dose: 10 mg Budesonide/Formoterol Fumarate (Symbicort 160/4.5mcg -) 2 puff IH BID FRIEDA Last Admin: 05/19/16 09:56 Dose: 2 puff Cholecalciferol (Vitamin D3 -) 1,000 unit PO DAILY [facility] Last Admin: 05/19/16 09:56 Dose: 1,000 unit Diphenhydramine HCl (Benadryl Injection -) 12.5 mg IVPUSH Q4H PRN PRN Reason: AGITATION Last Admin: 05/16/16 19:12 Dose: 12.5 mg Gabapentin (Neurontin -) 200 mg PO 0600,1200,1800 FRIEDA Last Admin: 05/19/16 18:36 Dose: 200 mg Heparin Sodium (Porcine) (Heparin -) 5,000 unit SQ Q8H-IV FRIEDA Last Admin: 05/19/16 18:36 Dose: 5,000 unit Sodium Chloride (Normal Saline -) 1,000 mls @ 75 mls/hr IV ASDIR FRIEDA Last Admin: 05/18/16 22:16 Dose: 75 mls/hr Lactobacillus Acidophilus (Bacid -) 1 tab PO DAILY [facility] Last Admin: 05/19/16 09:56 Dose: 1 tab Levofloxacin (Levaquin -) 500 mg PO DAILY [facility] Last Admin: 05/19/16 09:56 Dose: 500 mg Meclizine HCl (Antivert -) 25 mg PO Q6H PRN PRN Reason: VERTIGO Methylprednisolone Sodium Succinate (Solu-Medrol -) 40 mg IVPB Q8H-IV [facility] Last Admin: 05/19/16 18:36 Dose: 40 mg Ondansetron HCl (Zofran Injection) 4 mg IVPB Q6H PRN PRN Reason: NAUSEA Pantoprazole Sodium (Protonix -) 40 mg PO DAILY [facility] Last Admin: 05/19/16 09:56 Dose: 40 mg Roflumilast (Daliresp -) 500 mcg PO DAILY [facility] Last Admin: 05/19/16 11:00 Dose: 500 mcg Tiotropium [place] (Spiriva -) 1 puff IH DAILY [facility] Last Admin: 05/19/16 09:56 Dose: 1 puff Zolpidem Tartrate (Ambien -) 10 mg PO HS PRN Last Admin: 05/18/16 22:13 Dose: 10 mg (1) Acute exacerbation of chronic obstructive pulmonary disease Code(s): J44.1 - CHRONIC OBSTRUCTIVE PULMONARY DISEASE W (ACUTE) EXACERBATION Cont present care, case discussed with Pulm (2) Leukocytosis Code(s): D72.829 - ELEVATED WHITE BLOOD CELL COUNT, UNSPECIFIED Probably steriod induced. No fever. Will repeat. (5) Hyperlipidemia Code(s): E78.5 - HYPERLIPIDEMIA, UNSPECIFIED
[2016-05-19] MEDS: ZOLPIDEM TARTRATE 5 MG TABLET PO PRN (22:18)
[2016-05-19] MEDS: ATORVASTATIN CA 10 MG TABLET (FP) PO SCH (22:19)
[2016-05-19] MEDS: ALBUTEROL SO4 0.083% IH SOL 2.5 MG/3 ML VIAL.NEB. NEB SCH (22:35)
[2016-05-19] MEDS: ACETYLCYSTEINE 20% 200MG/ML 4 ML VIAL *FOR ORAL / INH USE ONLY NEB SCH (22:35)
[2016-05-20] MEDS: methylPREDNISolone NA SUCC 40 MG/1 ML VIAL IVPB SCH ×4 (01:26→21:23)
[2016-05-20] MEDS: HEPARIN NA (PORCINE) 5,000 UNITS/ML 1ML VIAL SQ SCH ×3 (01:26→19:11)
[2016-05-20] MEDS: SODIUM CHLORIDE 1,000 ML IV SCH (01:28)
[2016-05-20] MEDS: GABAPENTIN 100 MG CAPSULE (FP) PO SCH ×3 (06:17→19:11)
[2016-05-20 07:38] LABS: MCH 32.2 pg (25.7-33.7); MCHC 32.9 g/dl (32.0-35.9); MEAN CELL VOLUME 97.8 fl (80-96); MEAN PLT VOLUME 8.2 fl (7.5-11.1); PLATELET COUNT 248 K/MM3 (134-434); RDW 13.1 % (11.9-15.9); WHITE BLOOD COUNT 9.7 K/mm3 (4.0-10.0)
[2016-05-20 08:02] LABS: ALBUMIN 2.4 g/dl (3.4-5.0); ALK PHOS 61 U/L (45-117); ANION GAP 10 (8-16); BILIRUBIN,TOTAL 0.3 mg/dL (0.2-1.0); CALCIUM 8.3 mg/dL (8.5-10.1); CO2 26 mmol/L (21-32); CREATININE 0.8 mg/dL (0.7-1.3); GLUCOSE,RANDOM 106 mg/dL (74-106); SGOT/AST 16 U/L (15-37); SGPT/ALT 32 U/L (12-78); TOT PROT 5.1 g/dl (6.4-8.2)
[2016-05-20] MEDS: ALBUTEROL SO4 0.083% IH SOL 2.5 MG/3 ML VIAL.NEB. NEB SCH ×2 (10:40→22:54)
[2016-05-20] MEDS: ACETYLCYSTEINE 20% 200MG/ML 4 ML VIAL *FOR ORAL / INH USE ONLY NEB SCH ×2 (10:40→22:54)
[2016-05-20 11:11] LABS: PLATELET ESTIMATE ADEQUATE (NORMAL)
--- NOTE | 2016-05-20 11:36 | PN ---
Progress Note (short form) - Note Progress Note: Reports feeling about the same today. Still congested. Less wheezing. No CP. Intake & Output 05/17/16 05/18/16 05/19/16 05/20/16 23:59 23:59 23:59 23:59 Intake Total 1850 2900 900 1350 Balance 1850 2900 900 1350 Last Vital Signs Temp Pulse Resp BP Pulse Ox 98.3 F 79 20 134/81 98 05/20/16 05:34 05/20/16 10:40 05/20/16 05:34 05/20/16 05:34 05/20/16 10:40 Active Medications Acetaminophen (Tylenol -) 650 mg PO Q4H PRN PRN Reason: FEVER OR PAIN Acetylcysteine (Mucomyst 20 Oral / Inh Use Only*) 200 mg NEB BID [facility] Last Admin: 05/20/16 10:40 Dose: 200 mg Albuterol Sulfate (Ventolin 0.083% Nebulizer Soln -) 1 amp NEB Q4H PRN PRN Reason: SHORT OF BREATH/WHEEZING Last Admin: 05/19/16 17:06 Dose: 1 amp Albuterol Sulfate (Ventolin 0.083% Nebulizer Soln -) 1 amp NEB BID [facility] Last Admin: 05/20/16 10:40 Dose: 1 amp Aspirin (Ecotrin -) 81 mg PO DAILY [facility] Last Admin: 05/19/16 09:56 Dose: 81 mg Atorvastatin Calcium (Lipitor -) 10 mg PO HS [facility] Last Admin: 05/19/16 22:19 Dose: 10 mg Budesonide/Formoterol Fumarate (Symbicort 160/4.5mcg -) 2 puff IH BID [facility] Last Admin: 05/19/16 22:21 Dose: 2 puff Cholecalciferol (Vitamin D3 -) 1,000 unit PO DAILY [facility] Last Admin: 05/19/16 09:56 Dose: 1,000 unit Diphenhydramine HCl (Benadryl Injection -) 12.5 mg IVPUSH Q4H PRN PRN Reason: AGITATION Last Admin: 05/16/16 19:12 Dose: 12.5 mg Gabapentin (Neurontin -) 200 mg PO 0600,1200,1800 [facility] Last Admin: 05/20/16 06:17 Dose: 200 mg Heparin Sodium (Porcine) (Heparin -) 5,000 unit SQ Q8H-IV [facility] Last Admin: 05/20/16 01:26 Dose: 5,000 unit Sodium Chloride (Normal Saline -) 1,000 mls @ 75 mls/hr IV ASDIR [facility] Last Admin: 05/20/16 01:28 Dose: 75 mls/hr Lactobacillus Acidophilus (Bacid -) 1 tab PO DAILY [facility] Last Admin: 05/19/16 09:56 Dose: 1 tab Levofloxacin (Levaquin -) 500 mg PO DAILY [facility] Last Admin: 05/19/16 09:56 Dose: 500 mg Meclizine HCl (Antivert -) 25 mg PO Q6H PRN PRN Reason: VERTIGO Methylprednisolone Sodium Succinate (Solu-Medrol -) 40 mg IVPB Q12H [facility] Ondansetron HCl (Zofran Injection) 4 mg IVPB Q6H PRN PRN Reason: NAUSEA Pantoprazole Sodium (Protonix -) 40 mg PO DAILY [facility] Last Admin: 05/19/16 09:56 Dose: 40 mg Roflumilast (Daliresp -) 500 mcg PO DAILY [facility] Last Admin: 05/19/16 11:00 Dose: 500 mcg Tiotropium [place] (Spiriva -) 1 puff IH DAILY [facility] Last Admin: 05/19/16 09:56 Dose: 1 puff Zolpidem Tartrate (Ambien -) 10 mg PO HS PRN Last Admin: 05/19/16 22:18 Dose: 10 mg GENERAL: Awake and alert HEAD: Normal with no signs of trauma. EYES: sclerae anicteric, conjunctivae clear. EARS, NOSE, THROAT: Moist mucous membranes. NECK: JVD, or masses. LUNGS: Few scattered rhonchi, No wheeze heard today, No accessory muscle use. HEART: Regular rate and rhythm, normal S1 and S2 without murmur, rub or gallop. ABDOMEN: Soft, nontender, not distended, normoactive bowel sounds, no guarding, no rebound, no masses. No hepatomegaly or splenomegaly. MUSCULOSKELETAL: Normal range of motion at all joints. No bony deformities or tenderness. No CVA tenderness. UPPER EXTREMITIES: No cyanosis. No clubbing. No peripheral edema. LOWER EXTREMITIES: No calf tenderness. No peripheral edema. NEUROLOGICAL: Non-focal PSYCHIATRIC: Cooperative. Good eye contact. Appropriate mood and affect. SKIN: Warm, dry, normal turgor, no rashes or lesions noted, normal capillary refill. Laboratory Results - last 24 hr 05/20/16 05/20/16 06:00 06:00 WBC 9.7 D RBC 3.91 L Hgb 12.6 Hct 38.2 MCV 97.8 H MCHC 32.9 RDW 13.1 Plt Count 248 MPV 8.2 Neutrophils % 90.0 H Lymphocytes % 5.0 L D Monocytes % 5.0 D Differential Comment Manual diff done Platelet Estimate Adequate Sodium 146 H Potassium 4.0 Chloride 110 H Carbon Dioxide 26 Anion Gap 10 BUN 19 H Creatinine 0.8 Creat Clearance w eGFR > 60 Random Glucose 106 Calcium 8.3 L Total Bilirubin 0.3 D AST 16 ALT 32 Alkaline Phosphatase 61 D Total Protein 5.1 L D Albumin 2.4 L D ASSESSMENT/PLAN: Suspected URI with labyrinthitis Problem List - Problem (1) Acute exacerbation of chronic obstructive pulmonary disease Code(s): J44.1 - CHRONIC OBSTRUCTIVE PULMONARY DISEASE W (ACUTE) EXACERBATION (2) Leukocytosis Code(s): D72.829 - ELEVATED WHITE BLOOD CELL COUNT, UNSPECIFIED (3) Intractable nausea and vomiting Code(s): R11.2 - NAUSEA WITH VOMITING, UNSPECIFIED Qualifiers: Vomiting type: unspecified Qualified Code(s): R11.2 - Nausea with vomiting, unspecified (4) Vertigo Code(s): R42 - DIZZINESS AND GIDDINESS (5) Hyperlipidemia Code(s): E78.5 - HYPERLIPIDEMIA, UNSPECIFIED Albuterol with mucomyst BID Decrease Medrol today and can likely change to Prednisone in the AM and D/C home BD TX Symbicort Daliresp Spiriva O2 as needed No smoking Ambulate as tolerated Noted empiric PO Levaquiin Dr Lawson
[2016-05-20] MEDS: ASPIRIN COATED 81 MG TABLET.EC PO SCH (11:48)
[2016-05-20] MEDS: LEVOFLOXACIN 500 MG TABLET (FP) PO SCH (11:48)
[2016-05-20] MEDS: PANTOPRAZOLE 40 MG TABLET (FP) PO SCH (11:48)
[2016-05-20] MEDS: LACTOBACILLUS ACIDOPHILUS 1 EACH TAB (FP) PO SCH (11:48)
[2016-05-20] MEDS: CHOLECALCIFEROL (VITAMIN D3) 1,000 UNIT TABLET (FP) PO SCH (11:49)
[2016-05-20] MEDS: ROFLUMILAST 500 MCG TABLET PO SCH (11:49)
[2016-05-20] MEDS: TIOTROPIUM BROMIDE 18 MCG/INH (DEVICE W/ 5 CAPSULES) IH SCH (11:50)
[2016-05-20] MEDS: BUDESONIDE/FORMETEROL FUMARATE 160/4.5 mcg INHALER IH SCH ×2 (11:50→21:25)
[2016-05-20] MEDS: ATORVASTATIN CA 10 MG TABLET (FP) PO SCH (21:25)
[2016-05-20] MEDS: ZOLPIDEM TARTRATE 5 MG TABLET PO PRN (21:30)
--- NOTE | 2016-05-21 00:01 | PN ---
Physical Exam: SUBJECTIVE: Patient seen and examined OBJECTIVE: Vital Signs Period Temp Pulse Resp BP Sys/Spence Pulse Ox Last 24 Hr 97.2 F-98.3 F 61-80 17-20 119-134/61-81 97-98 GENERAL: The patient is awake, alert, and fully oriented, in no acute distress. HEAD: Normal with no signs of trauma. EYES: PERRL, extraocular movements intact, sclera anicteric, conjunctiva clear. No ptosis. LUNGS: Diminished breath sounds but air movement much improved HEART: Regular rate and rhythm, S1, S2 without murmur, rub or gallop. ABDOMEN: Soft, nontender, nondistended, normoactive bowel sounds, no guarding, no rebound EXTREMITIES: 2+ pulses, warm, well-perfused, no edema. NEUROLOGICAL: Cranial nerves II through XII grossly intact. Normal speech, gait not observed Laboratory Results - last 24 hr 05/20/16 05/20/16 06:00 06:00 WBC 9.7 D RBC 3.91 L Hgb 12.6 Hct 38.2 MCV 97.8 H MCHC 32.9 RDW 13.1 Plt Count 248 MPV 8.2 Neutrophils % 90.0 H Lymphocytes % 5.0 L D Monocytes % 5.0 D Differential Comment Manual diff done Platelet Estimate Adequate Sodium 146 H Potassium 4.0 Chloride 110 H Carbon Dioxide 26 Anion Gap 10 BUN 19 H Creatinine 0.8 Creat Clearance w eGFR > 60 Random Glucose 106 Calcium 8.3 L Total Bilirubin 0.3 D AST 16 ALT 32 Alkaline Phosphatase 61 D Total Protein 5.1 L D Albumin 2.4 L D Active Medications Generic Name Dose Route Start Last Admin Trade Name Jane PRN Reason Stop Dose Admin Acetaminophen 650 mg 05/16/16 17:14 Tylenol - PO Q4H PRN FEVER OR PAIN Acetylcysteine 200 mg 05/19/16 11:00 05/20/16 22:54 Mucomyst 20 Oral / Inh Use Only* NEB 200 mg BID [facility] Administration Albuterol Sulfate 1 amp 05/16/16 18:29 05/19/16 17:06 Ventolin 0.083% Nebulizer Soln - NEB 1 amp Q4H PRN Administration SHORT OF BREATH/WHEEZING Albuterol Sulfate 1 amp 05/19/16 11:00 05/20/16 22:54 Ventolin 0.083% Nebulizer Soln - NEB 1 amp BID [facility] Administration Aspirin 81 mg 05/17/16 10:00 05/20/16 11:48 Ecotrin - PO 81 mg DAILY [facility] Administration Atorvastatin Calcium 10 mg 05/16/16 22:00 05/20/16 21:25 Lipitor - PO 10 mg HS [facility] Administration Budesonide/Formoterol Fumarate 2 puff 05/17/16 22:00 05/20/16 21:25 Symbicort 160/4.5mcg - IH 2 puff BID [facility] Administration Cholecalciferol 1,000 unit 05/17/16 10:00 05/20/16 11:49 Vitamin D3 - PO 1,000 unit DAILY [facility] Administration Diphenhydramine HCl 12.5 mg 05/16/16 17:20 05/16/16 19:12 Benadryl Injection - IVPUSH 12.5 mg Q4H PRN Administration AGITATION Gabapentin 200 mg 05/16/16 18:00 05/20/16 19:11 Neurontin - PO 200 mg 0600,1200,1800 [facility] Administration Heparin Sodium (Porcine) 5,000 unit 05/16/16 18:00 05/20/16 19:11 Heparin - SQ 5,000 unit Q8H-IV [facility] Administration Lactobacillus Acidophilus 1 tab 05/17/16 10:00 05/20/16 11:48 Bacid - PO 1 tab DAILY [facility] Administration Levofloxacin 500 mg 05/17/16 10:00 05/20/16 11:48 Levaquin - PO 500 mg DAILY [facility] Administration Meclizine HCl 25 mg 05/16/16 18:18 Antivert - PO Q6H PRN VERTIGO Methylprednisolone Sodium Succinate 40 mg 05/20/16 12:00 05/20/16 21:23 Solu-Medrol - IVPB 40 mg BID [facility] Administration Pantoprazole Sodium 40 mg 05/16/16 18:30 05/20/16 11:48 Protonix - PO 40 mg DAILY [facility] Administration Roflumilast 500 mcg 05/17/16 10:00 05/20/16 11:49 Daliresp - PO 500 mcg DAILY [facility] Administration Tiotropium [place] 1 puff 05/17/16 17:15 05/20/16 11:50 Spiriva - IH 1 puff DAILY [facility] Administration ASSESSMENT/PLAN: 66 year-old man with a history of COPD and hyperlipidemia who presented to the ER complaining of cough, SOB, headache, nausea, vomiting. Acute exacerbation of COPD URI - CT chest: moderate to severe COPD with bullae - continue SoluMedrol, DuoNeb, mucomyst, levofloxacin (day #4) - continue Daliresp - tapering steroids Labyrinthitis, resolved - Meclizine PRN for dizziness Hyperlipidemia - Continue Lipitor F/E/N Fluids: PO intake adequate Electrolytes: replete as indicated Nutrition: regular diet DVT prophylaxis: subq heparin, oob, ambulation Dispo: pre/post in am for discharge planning. Continues to require inpatient care. Visit type - Emergency Visit Emergency Visit: Yes ED Registration Date: 05/16/16 Care time: The patient presented to the Emergency Department on the above date and was hospitalized for further evaluation of their emergent condition. - New Patient This patient is new to me today: No - Critical Care Critical Care patient: No
[2016-05-21] MEDS: HEPARIN NA (PORCINE) 5,000 UNITS/ML 1ML VIAL SQ SCH ×3 (01:37→18:22)
[2016-05-21] MEDS: GABAPENTIN 100 MG CAPSULE (FP) PO SCH ×3 (06:27→18:22)
[2016-05-21] MEDS: methylPREDNISolone NA SUCC 40 MG/1 ML VIAL IVPB SCH ×2 (10:00→11:39)
[2016-05-21] MEDS: LEVOFLOXACIN 500 MG TABLET (FP) PO SCH (10:00)
[2016-05-21] MEDS: ASPIRIN COATED 81 MG TABLET.EC PO SCH (10:00)
[2016-05-21] MEDS: ROFLUMILAST 500 MCG TABLET PO SCH (10:00)
[2016-05-21] MEDS: LACTOBACILLUS ACIDOPHILUS 1 EACH TAB (FP) PO SCH (10:00)
[2016-05-21] MEDS: PANTOPRAZOLE 40 MG TABLET (FP) PO SCH (10:00)
[2016-05-21] MEDS: BUDESONIDE/FORMETEROL FUMARATE 160/4.5 mcg INHALER IH SCH ×2 (10:00→21:32)
[2016-05-21] MEDS: TIOTROPIUM BROMIDE 18 MCG/INH (DEVICE W/ 5 CAPSULES) IH SCH (10:00)
[2016-05-21] MEDS: CHOLECALCIFEROL (VITAMIN D3) 1,000 UNIT TABLET (FP) PO SCH (10:00)
[2016-05-21] MEDS: ACETYLCYSTEINE 20% 200MG/ML 4 ML VIAL *FOR ORAL / INH USE ONLY NEB SCH ×2 (10:25→21:19)
[2016-05-21] MEDS: ALBUTEROL SO4 0.083% IH SOL 2.5 MG/3 ML VIAL.NEB. NEB SCH ×2 (10:25→21:19)
--- NOTE | 2016-05-21 11:03 | PN ---
Physical Exam: SUBJECTIVE: Patient seen and examined Pt c/o dry cough,COLVIN and wheezing, denies cp,palpitations, abdominal pain, N/V/ D or urinary symptoms. OBJECTIVE: Vital Signs Period Temp Pulse Resp BP Sys/Spence Pulse Ox Last 24 Hr 97.2 F-98.3 F 63-77 16-20 106-127/61-78 97 GENERAL: The patient is awake, alert, and fully oriented, in no acute distress. HEAD: Normal with no signs of trauma. EYES: PERRL, extraocular movements intact, sclera anicteric, conjunctiva clear. No ptosis. ENT: Ears normal, nares patent, oropharynx clear without exudates, moist mucous membranes. NECK: Trachea midline, full range of motion, supple. LUNGS: Breath sounds equal, BS diminished bilaterally, no wheezes, no crackles, no accessory muscle use. HEART: Regular rate and rhythm, S1, S2 without murmur, rub or gallop. ABDOMEN: Soft, nontender, nondistended, normoactive bowel sounds, no guarding, no rebound, no hepatosplenomegaly, no masses. EXTREMITIES: 2+ pulses, warm, well-perfused, no edema. NEUROLOGICAL: Cranial nerves II through XII grossly intact. Normal speech, gait not observed. PSYCH: Normal mood, normal affect. SKIN: Warm, dry, normal turgor, no rashes or lesions noted Laboratory Results - last 24 hr 05/20/16 06:00 Neutrophils % 90.0 H Lymphocytes % 5.0 L D Monocytes % 5.0 D Differential Comment Manual diff done Platelet Estimate Adequate Active Medications Generic Name Dose Route Start Last Admin Trade Name Darronq PRN Reason Stop Dose Admin Acetaminophen 650 mg 05/16/16 17:14 Tylenol - PO Q4H PRN FEVER OR PAIN Acetylcysteine 200 mg 05/19/16 11:00 05/20/16 22:54 Mucomyst 20 Oral / Inh Use Only* NEB 200 mg BID [facility] Administration Albuterol Sulfate 1 amp 05/16/16 18:29 05/19/16 17:06 Ventolin 0.083% Nebulizer Soln - NEB 1 amp Q4H PRN Administration SHORT OF BREATH/WHEEZING Albuterol Sulfate 1 amp 05/19/16 11:00 05/20/16 22:54 Ventolin 0.083% Nebulizer Soln - NEB 1 amp BID [facility] Administration Aspirin 81 mg 05/17/16 10:00 05/20/16 11:48 Ecotrin - PO 81 mg DAILY [facility] Administration Atorvastatin Calcium 10 mg 05/16/16 22:00 05/20/16 21:25 Lipitor - PO 10 mg HS [facility] Administration Budesonide/Formoterol Fumarate 2 puff 05/17/16 22:00 05/20/16 21:25 Symbicort 160/4.5mcg - IH 2 puff BID [facility] Administration Cholecalciferol 1,000 unit 05/17/16 10:00 05/20/16 11:49 Vitamin D3 - PO 1,000 unit DAILY [facility] Administration Diphenhydramine HCl 12.5 mg 05/16/16 17:20 05/16/16 19:12 Benadryl Injection - IVPUSH 12.5 mg Q4H PRN Administration AGITATION Gabapentin 200 mg 05/16/16 18:00 05/21/16 06:27 Neurontin - PO 200 mg 0600,1200,1800 [facility] Administration Heparin Sodium (Porcine) 5,000 unit 05/16/16 18:00 05/21/16 01:37 Heparin - SQ 5,000 unit Q8H-IV [facility] Administration Lactobacillus Acidophilus 1 tab 05/17/16 10:00 05/20/16 11:48 Bacid - PO 1 tab DAILY [facility] Administration Levofloxacin 500 mg 05/17/16 10:00 05/20/16 11:48 Levaquin - PO 500 mg DAILY [facility] Administration Meclizine HCl 25 mg 05/16/16 18:18 Antivert - PO Q6H PRN VERTIGO Methylprednisolone Sodium Succinate 40 mg 05/21/16 10:00 Solu-Medrol - IVPB DAILY [facility] Pantoprazole Sodium 40 mg 05/16/16 18:30 05/20/16 11:48 Protonix - PO 40 mg DAILY [facility] Administration Roflumilast 500 mcg 05/17/16 10:00 05/20/16 11:49 Daliresp - PO 500 mcg DAILY [facility] Administration Tiotropium [place] 1 puff 05/17/16 17:15 05/20/16 11:50 Spiriva - IH 1 puff DAILY [facility] Administration ASSESSMENT/PLAN: This is a 66 year-old man with a history of COPD and hyperlipidemia who presented to the ER complaining of cough, SOB, headache, nausea, vomiting. *Acute exacerbation of COPD/URI- improving - CT chest: moderate to severe COPD with bullae - tapering Solumedrol - will cont on DuoNeb, Daliresp mucomyst, levofloxacin (day #5) -pulmonary following - cultures negative *Labyrinthitis, resolved - Meclizine PRN for dizziness *Hyperlipidemia - Continue Lipitor F/E/N Fluids: PO intake adequate Electrolytes: replete as indicated Nutrition: regular diet DVT prophylaxis: subq heparin, oob, ambulation Dispo: Anticipate DC in am Visit type - Emergency Visit Emergency Visit: Yes ED Registration Date: 05/16/16 Care time: The patient presented to the Emergency Department on the above date and was hospitalized for further evaluation of their emergent condition. - New Patient This patient is new to me today: Yes Date on this admission: 05/21/16 - Critical Care Critical Care patient: No
--- NOTE | 2016-05-21 11:32 | PN ---
Progress Note (short form) - Note Progress Note: Reports feeling about the same today. Symptoms have plateaued. No CP. Intake & Output 05/18/16 05/19/16 05/20/16 05/21/16 23:59 23:59 23:59 23:59 Intake Total 2900 900 2019 Balance 2900 900 2019 Last Vital Signs Temp Pulse Resp BP Pulse Ox 97.5 F L 68 16 124/68 97 05/21/16 10:00 05/21/16 10:00 05/21/16 10:00 05/21/16 10:00 05/20/16 20:43 Active Medications Acetaminophen (Tylenol -) 650 mg PO Q4H PRN PRN Reason: FEVER OR PAIN Acetylcysteine (Mucomyst 20 Oral / Inh Use Only*) 200 mg NEB BID [facility] Last Admin: 05/20/16 22:54 Dose: 200 mg Albuterol Sulfate (Ventolin 0.083% Nebulizer Soln -) 1 amp NEB Q4H PRN PRN Reason: SHORT OF BREATH/WHEEZING Last Admin: 05/19/16 17:06 Dose: 1 amp Albuterol Sulfate (Ventolin 0.083% Nebulizer Soln -) 1 amp NEB BID [facility] Last Admin: 05/20/16 22:54 Dose: 1 amp Aspirin (Ecotrin -) 81 mg PO DAILY [facility] Last Admin: 05/20/16 11:48 Dose: 81 mg Atorvastatin Calcium (Lipitor -) 10 mg PO HS [facility] Last Admin: 05/20/16 21:25 Dose: 10 mg Budesonide/Formoterol Fumarate (Symbicort 160/4.5mcg -) 2 puff IH BID [facility] Last Admin: 05/20/16 21:25 Dose: 2 puff Cholecalciferol (Vitamin D3 -) 1,000 unit PO DAILY [facility] Last Admin: 05/20/16 11:49 Dose: 1,000 unit Diphenhydramine HCl (Benadryl Injection -) 12.5 mg IVPUSH Q4H PRN PRN Reason: AGITATION Last Admin: 05/16/16 19:12 Dose: 12.5 mg Gabapentin (Neurontin -) 200 mg PO 0600,1200,1800 [facility] Last Admin: 05/21/16 06:27 Dose: 200 mg Heparin Sodium (Porcine) (Heparin -) 5,000 unit SQ Q8H-IV [facility] Last Admin: 05/21/16 01:37 Dose: 5,000 unit Lactobacillus Acidophilus (Bacid -) 1 tab PO DAILY [facility] Last Admin: 05/20/16 11:48 Dose: 1 tab Levofloxacin (Levaquin -) 500 mg PO DAILY [facility] Last Admin: 05/20/16 11:48 Dose: 500 mg Meclizine HCl (Antivert -) 25 mg PO Q6H PRN PRN Reason: VERTIGO Methylprednisolone Sodium Succinate (Solu-Medrol -) 40 mg IVPB DAILY [facility] Pantoprazole Sodium (Protonix -) 40 mg PO DAILY [facility] Last Admin: 05/20/16 11:48 Dose: 40 mg Roflumilast (Daliresp -) 500 mcg PO DAILY [facility] Last Admin: 05/20/16 11:49 Dose: 500 mcg Tiotropium [place] (Spiriva -) 1 puff IH DAILY [facility] Last Admin: 05/20/16 11:50 Dose: 1 puff GENERAL: Awake and alert HEAD: Normal with no signs of trauma. EYES: sclerae anicteric, conjunctivae clear. EARS, NOSE, THROAT: Moist mucous membranes. NECK: JVD, or masses. LUNGS: minimal scattered rhonchi, No wheeze heard today, No accessory muscle use. HEART: Regular rate and rhythm, normal S1 and S2 without murmur, rub or gallop. ABDOMEN: Soft, nontender, not distended, normoactive bowel sounds, no guarding, no rebound, no masses. No hepatomegaly or splenomegaly. MUSCULOSKELETAL: Normal range of motion at all joints. No bony deformities or tenderness. No CVA tenderness. UPPER EXTREMITIES: No cyanosis. No clubbing. No peripheral edema. LOWER EXTREMITIES: No calf tenderness. No peripheral edema. NEUROLOGICAL: Non-focal PSYCHIATRIC: Cooperative. Good eye contact. Appropriate mood and affect. SKIN: Warm, dry, normal turgor, no rashes or lesions noted, normal capillary refill. ASSESSMENT/PLAN: Suspected URI with labyrinthitis Problem List - Problem (1) Acute exacerbation of chronic obstructive pulmonary disease Code(s): J44.1 - CHRONIC OBSTRUCTIVE PULMONARY DISEASE W (ACUTE) EXACERBATION (2) Leukocytosis Code(s): D72.829 - ELEVATED WHITE BLOOD CELL COUNT, UNSPECIFIED (3) Intractable nausea and vomiting Code(s): R11.2 - NAUSEA WITH VOMITING, UNSPECIFIED Qualifiers: Vomiting type: unspecified Qualified Code(s): R11.2 - Nausea with vomiting, unspecified (4) Vertigo Code(s): R42 - DIZZINESS AND GIDDINESS (5) Hyperlipidemia Code(s): E78.5 - HYPERLIPIDEMIA, UNSPECIFIED Albuterol with mucomyst BID Agree with decrease in Medrol today and can likely change to Prednisone in the AM and D/C home Friday BD TX Symbicort Daliresp Spiriva O2 as needed No smoking Ambulate as tolerated PO Levaquiin Check O2 saturation pre/post ambulation Dr Lawson
[2016-05-21] MEDS ORDERED: ZOLPIDEM TARTRATE 5 MG TABLET PO PRN (19:56)
[2016-05-21] MEDS: ATORVASTATIN CA 10 MG TABLET (FP) PO SCH (21:32)
[2016-05-22] MEDS: HEPARIN NA (PORCINE) 5,000 UNITS/ML 1ML VIAL SQ SCH ×2 (00:59→10:08)
[2016-05-22] MEDS: GABAPENTIN 100 MG CAPSULE (FP) PO SCH ×2 (06:22→12:31)
[2016-05-22] MEDS ORDERED: PT OWN MED DRAWER 7, Y5N ONE (09:38)
[2016-05-22] MEDS: methylPREDNISolone NA SUCC 40 MG/1 ML VIAL IVPB SCH (10:04)
[2016-05-22] MEDS: LEVOFLOXACIN 500 MG TABLET (FP) PO SCH (10:08)
[2016-05-22] MEDS: ASPIRIN COATED 81 MG TABLET.EC PO SCH (10:08)
[2016-05-22] MEDS: LACTOBACILLUS ACIDOPHILUS 1 EACH TAB (FP) PO SCH (10:08)
[2016-05-22] MEDS: PANTOPRAZOLE 40 MG TABLET (FP) PO SCH (10:08)
[2016-05-22] MEDS: CHOLECALCIFEROL (VITAMIN D3) 1,000 UNIT TABLET (FP) PO SCH (10:08)
[2016-05-22] MEDS: ROFLUMILAST 500 MCG TABLET PO SCH (10:08)
[2016-05-22] MEDS: BUDESONIDE/FORMETEROL FUMARATE 160/4.5 mcg INHALER IH SCH (10:09)
[2016-05-22] MEDS: TIOTROPIUM BROMIDE 18 MCG/INH (DEVICE W/ 5 CAPSULES) IH SCH (10:09)
[2016-05-22 11:19] VITALS: BP 109/69; PULSE 69; TEMP 97.4
--- NOTE | 2016-05-22 11:48 | DS ---
Physical Exam: SUBJECTIVE: Patient seen and examined OBJECTIVE: Vital Signs Period Temp Pulse Resp BP Sys/Spence Pulse Ox Last 24 Hr 97.4 F-97.8 F 69-103 18-20 109-128/69-75 91-96 PHYSICAL EXAM GENERAL: The patient is awake, alert, and fully oriented, in no acute distress. HEAD: Normal with no signs of trauma. EYES: PERRL, extraocular movements intact, sclera anicteric, conjunctiva clear. No ptosis. LUNGS: Diminished breath sounds but air movement much improved HEART: Regular rate and rhythm, S1, S2 without murmur, rub or gallop. ABDOMEN: Soft, nontender, nondistended, normoactive bowel sounds, no guarding, no rebound EXTREMITIES: 2+ pulses, warm, well-perfused, no edema. NEUROLOGICAL: Cranial nerves II through XII grossly intact. Normal speech, gait not observed LABS CBCD WBC 9.7 K/mm3 (4.0-10.0) D 05/20/16 06:00 RBC 3.91 M/mm3 (4.00-5.60) L 05/20/16 06:00 Hgb 12.6 GM/dL (11.7-16.9) 05/20/16 06:00 Hct 38.2 % (35.4-49) 05/20/16 06:00 MCV 97.8 fl (80-96) H 05/20/16 06:00 MCHC 32.9 g/dl (32.0-35.9) 05/20/16 06:00 RDW 13.1 % (11.9-15.9) 05/20/16 06:00 Plt Count 248 K/MM3 (134-434) 05/20/16 06:00 MPV 8.2 fl (7.5-11.1) 05/20/16 06:00 CMP Sodium 146 mmol/L (136-145) H 05/20/16 06:00 Potassium 4.0 mmol/L (3.5-5.1) 05/20/16 06:00 Chloride 110 mmol/L (98-107) H 05/20/16 06:00 Carbon Dioxide 26 mmol/L (21-32) 05/20/16 06:00 Anion Gap 10 (8-16) 05/20/16 06:00 BUN 19 mg/dL (7-18) H 05/20/16 06:00 Creatinine 0.8 mg/dL (0.7-1.3) 05/20/16 06:00 Creat Clearance w eGFR > 60 (>60) 05/20/16 06:00 Calcium 8.3 mg/dL (8.5-10.1) L 05/20/16 06:00 Total Bilirubin 0.3 mg/dL (0.2-1.0) D 05/20/16 06:00 AST 16 U/L (15-37) 05/20/16 06:00 ALT 32 U/L (12-78) 05/20/16 06:00 Alkaline Phosphatase 61 U/L (45-117) D 05/20/16 06:00 Total Protein 5.1 g/dl (6.4-8.2) L D 05/20/16 06:00 Albumin 2.4 g/dl (3.4-5.0) L D 05/20/16 06:00 HOSPITAL COURSE: Date of Admission:05/16/16 Date of Discharge: 05/22/16 66 year-old man with a history of COPD and hyperlipidemia who presented to the ER complaining of cough, SOB, headache, nausea, vomiting. Acute exacerbation of COPD URI - CT chest: moderate to severe COPD with bullae - treated with SoluMedrol, DuoNeb, mucomyst, levofloxacin - continued Dalrisep - treated with IV steroids transitioned to PO and tapered Labyrinthitis, resolved - Meclizine PRN for dizziness Hyperlipidemia - Continued Lipitor Minutes to complete discharge: 35 Discharge Summary Reason For Visit: VERTIGO,OBSTR CHRONIC BRONCH W EXACERBATION Current Active Problems Acute exacerbation of chronic obstructive pulmonary disease (Acute) Intractable nausea and vomiting (Acute) Leukocytosis (Acute) Vertigo (Acute) Hyperlipidemia (Chronic) Condition: Improved - Instructions Diet, Activity, Other Instructions: Two prescriptions have been sent to your pharmacy, one is for levofloxacin which is an antibiotic, and one is for prednisone. Take these medications as directed and be sure to finish all the medication. Return to the emergency department for any new or worsening symptoms. Referrals: Sidney Lawson MD [Staff Physician] - Dm Castillo MD [Primary Care Provider] - Disposition: HOME - Home Medications Comprehensive Discharge Medication List: Ambulatory Orders Fluticasone/Salmeterol [Advair 250-50 Diskus] 500 each IH BID 04/22/15 Acidophilus/Bifido [place] [Lactobacillus Capsule] 16 mg PO DAILY #14 capsule 01/02 Roflumilast [Daliresp -] 500 mcg PO DAILY #30 tablet 04/28/15 Aspirin Coated [Ecotrin -] 81 mg PO DAILY #0 08/25/15 Atorvastatin Calcium 10 mg PO WEEKLY 08/25/15 Zolpidem Tartrate [Zolpidem Tartrate ER] 12.5 mg PO HS 08/25/15 Betamethasone/Propylene Glyc [Betamethasone Dp Aug 0.05% Crm] 15 gm TP DAILY Cholecalciferol (Vitamin D3) [Vitamin D3 -] 1,000 unit PO DAILY 04/01/16 Gabapentin [Neurontin -] 200 mg PO 0600,1200,1800 04/01/16 Gabapentin [Neurontin] 300 mg PO DAILY 04/01/16 Albuterol Sulfate Inhaler - [Ventolin Hfa Inhaler -] 1 - 2 inh PO Q4H PRN Albuterol Sulfate [Proair Respiclick] 90 mcg IH DAILY 05/16/16 Tiotropium [place] [Spiriva] 18 mcg IH DAILY 05/16/16 This patient is new to me today: No Emergency Visit: Yes ED Registration Date: 05/16/16 Care time: The patient presented to the Emergency Department on the above date and was hospitalized for further evaluation of their emergent condition. Critical Care patient: No - Discharge Referral Referred to [facility] No
== END 2016-05-22 13:07 | disposition home or self-care (01) | DRG 192 ==
LOC: JER 10:26 → JERBED 16:22 → J7W 17:45
PROVIDERS: ADMIT Internal Medicine; ATTEND Nurse Practitioner Acute Care
DX: J44.1 Chronic obstructive pulmonary disease with (acute) exacerbation (principal); J06.9 Acute upper respiratory infection, unspecified; H83.09 Labyrinthitis, unspecified ear; R42 Dizziness and giddiness; R11.2 Nausea with vomiting, unspecified; E78.5 Hyperlipidemia, unspecified; D72.829 Elevated white blood cell count, unspecified; Z87.891 Personal history of nicotine dependence
CPT/HCPCS: 36415; 70450-TC; 71020-TC; 71250-TC; 80048; 80053; 82550; 84484; 85025; 85610; 87040; 93005; 93010; 94640; 94761; 99285-25; J1644

== ENCOUNTER 2017-02-18 11:08 | Inpatient (IN) | payer OTHER, BC ==
[2017-02-18 11:19] VITALS: BMI 23.0
--- NOTE | 2017-02-18 13:53 | PDOC ---
History of Present Illness - General Chief Complaint: Shortness of Breath Stated Complaint: SAT 91% PCP SENT FOR ADMIN Time Seen by Provider: 02/18/17 13:30 History Source: Patient - History of Present Illness Initial Comments: 02/18/17 13:47 The patient is a 67M with a PMH of COPD who presents to the ED with 5 days of cough and shortness of breath. The patient states he was sent by Dr. Castillo for evaluation. He is complaining of a productive cough, abdominal pain, and lower back pain. He is also complaining of nausea and anorexia. His says he has felt feverish and had episodes of chills and shaking over the past few days. He says he "does not fell well" and hasn't been able to eat or drink anything. He denies CP. Past History - Past Medical History Allergies/Adverse Reactions: Allergies Allergy/AdvReac Type Severity Reaction Status Date / Time morphine AdvReac Severe Vomiting Verified 02/18/17 11:14 oxycodone AdvReac Severe Vomiting Verified 02/18/17 11:14 Home Medications: Ambulatory Orders Fluticasone/Salmeterol [Advair 250-50 Diskus] 500 each IH BID 04/22/15 Roflumilast [Daliresp -] 500 mcg PO DAILY #30 tablet 04/28/15 Aspirin Coated [Ecotrin -] 81 mg PO DAILY #0 08/25/15 Zolpidem Tartrate [Zolpidem Tartrate ER] 12.5 mg PO HS 08/25/15 Gabapentin [Neurontin -] 200 mg PO 0600,1200,1800 04/01/16 Albuterol Sulfate Inhaler - [Ventolin HFA Inhaler -] 1 - 2 inh PO Q4H PRN Albuterol Sulfate [Proair Respiclick] 90 mcg IH DAILY 05/16/16 Tiotropium [place] [Spiriva] 18 mcg IH DAILY 05/16/16 Aclidinium [place] [Tudorza -] 1 inh PO BID 02/18/17 Fluticasone/Salmeterol [Advair 250-50 Diskus] 1 each IH DAILY 02/18/17 Ibuprofen [Motrin -] 800 mg PO TID PRN 02/18/17 Naproxen 500 mg PO BID 02/18/17 Prednisone 5 mg PO DAILY 02/18/17 Prednisone [Deltasone -] 2.5 mg PO BID 02/18/17 Anemia: No Asthma: No COPD: Yes (HX OF PNEUMONIA) GI Disorders: Yes (COLON POLYPS) - Surgical History Abdominal Surgery: Yes (LT INGUINAL AND UMBILICAL) Orthopedic Surgery: Yes (RT ROTATOR CUFF SHOULDER) - Suicide/Smoking/Psychosocial Hx Smoking History: Former smoker Have you smoked in the past 12 months: No If you are a former smoker, when did you quit?: 1987 Information on smoking cessation initiated: No Hx Alcohol Use: No Drug/Substance Use Hx: No Substance Use Type: None Hx Substance Use Treatment: No Review of Systems - Review of Systems Able to Perform ROS?: Yes Comments:: 02/18/17 13:51 GENERAL/CONSTITUTIONAL: Positive for fever or chills. No weakness. HEAD, EYES, EARS, NOSE AND THROAT: No change in vision. No ear pain or discharge. No sore throat. GASTROINTESTINAL: Positive for nausea and abdominal pain. No vomiting, diarrhea , or constipation. GENITOURINARY: No dysuria, frequency, hematuria, or change in urination. CARDIOVASCULAR: No chest pain, palpitations, or lightheadedness. RESPIRATORY: Positive for cough and shortness of breath. No wheezing or hemoptysis. MUSCULOSKELETAL: No joint or muscle swelling or pain. No neck or back pain. SKIN: No rash or lesions. NEUROLOGIC: No headache, numbness, tingling, weakness, loss of consciousness, or change in strength/sensation. ENDOCRINE: No increased thirst. No abnormal weight change. HEMATOLOGIC/LYMPHATIC: No anemia, easy bleeding, or history of blood clots. ALLERGIC/IMMUNOLOGIC: No hives or skin allergy. Is the patient limited Grenadian proficient: No *Physical Exam - Vital Signs Last Vital Signs Temp Pulse Resp BP Pulse Ox 97.6 F 77 20 118/78 91 L 02/18/17 11:16 02/18/17 11:16 02/18/17 11:16 02/18/17 11:16 02/18/17 11:16 - Physical Exam Comments: 02/18/17 13:53 GENERAL: Well developed, well nourished. Awake and alert. In mild distress. HEENT: Normocephalic, atraumatic. Hearing grossly normal. Moist mucous membranes. NECK: Supple. Full ROM. No JVD. Carotid pulses 2+ and symmetric, without bruits. No thyromegaly. No lymphadenopathy. CARDIOVASCULAR: Regular rate and rhythm. PULMONARY: B/l crackles in lower lung velasquez. ABDOMINAL: Soft. Non-tender. Non-distended. No rebound or guarding. GENITOURINARY: No CVA tenderness bilaterally. MUSCULOSKELETAL: Normal range of motion at all joints. No bony deformities or tenderness. EXTREMITIES: No cyanosis. No clubbing. No edema. No calf tenderness. SKIN: Warm and dry. Normal capillary refill. No rashes. No jaundice. NEUROLOGICAL: Alert, awake, appropriate. Cranial nerves 2-12 intact. Normal speech. Gait is normal without ataxia. PSYCHIATRIC: Cooperative. Good eye contact. Appropriate mood and affect. ED Treatment Course - LABORATORY CBC & Chemistry Diagram: 02/18/17 13:55 02/18/17 13:55 - RADIOLOGY Radiology Studies Ordered: Category Date Time Status CHEST PA & LAT [RAD] Stat Radiology 02/18/17 13:41 Ordered Medical Decision Making - Medical Decision Making 02/18/17 13:56 The patient is a 67M with a PMH of COPD who is presenting with 5 days of "not feeling well" including fever, chills, rigors, and productive cough. I am concerned for a COPD exacerbation but would like to rule out ACS with EKG and cardiac profile. Vitals are stable. Will monitor closely. 02/18/17 15:36 CBC significant for increased white count of 13.4. 02/18/17 15:37 CXR indicated moderately severe COPD with no acute disease. Pt requesting zantac, will order. 02/18/17 15:[address] Hammond accepts admission for Dr. Castillo for med-surg bed. *DC/Admit/Observation/Transfer Diagnosis at time of Disposition: Acute exacerbation of chronic obstructive pulmonary disease - Discharge Dispostion Condition at time of disposition: Stable Admit: Yes - Referrals Referrals: Dm Castillo MD [Primary Care Provider] - - Patient Instructions - Post Discharge Activity
[2017-02-18 14:03] LABS: BASO % 0.3 % (0-2.0); EOS % 0.2 % (0-4.5); HEMATOCRIT 43.7 % (35.4-49); LYMPH % 6.5 % (8-40); MCH 30.9 pg (25.7-33.7); MCHC 32.1 g/dl (32.0-35.9); MEAN CELL VOLUME 96.3 fl (80-96); MEAN PLT VOLUME 7.3 fl (7.5-11.1); MONO % 7.1 % (3.8-10.2); NEUT % 85.9 % (42.8-82.8); PLATELET COUNT 270 K/MM3 (134-434); RBC 4.54 M/mm3 (4.00-5.60); RDW 13.5 % (11.9-15.9); WHITE BLOOD COUNT 13.4 K/mm3 (4.0-10.0)
[2017-02-18 14:38] LABS: ANION GAP 10 (8-16); BILIRUBIN,TOTAL 0.9 mg/dL (0.2-1.0); BLOOD UREA NITROGEN 16 mg/dL (7-18); CALCIUM 9.3 mg/dL (8.5-10.1); CHLORIDE 101 mmol/L (98-107); CO2 28 mmol/L (21-32); CREATININE 1.1 mg/dL (0.7-1.3); GLUCOSE,RANDOM 90 mg/dL (74-106); POTASSIUM 4.2 mmol/L (3.5-5.1); SGOT/AST 13 U/L (15-37); SGPT/ALT 14 U/L (12-78); SODIUM 139 mmol/L (136-145); TOT PROT 6.5 g/dl (6.4-8.2)
[2017-02-18 14:41] LABS: ALK PHOS 82 U/L (45-117)
[2017-02-18] MEDS ORDERED: SODIUM CHLORIDE 1,000 ML IV STA (15:26)
[2017-02-18] MEDS ORDERED: FAMOTIDINE 20 MG/50 ML IVPB 20 MG/50 ML MG IVPB ONE (15:26)
--- NOTE | 2017-02-18 15:28 | PDOC ---
Attending Attestation - Resident Resident Name: Peterson Cabrera - ED Attending Attestation I have performed the following: I have examined & evaluated the patient, The case was reviewed & discussed with the resident, I agree w/resident's findings & plan, Exceptions are as noted - HPI HPI: 67 yo M history COPD sent by Dr. Castillo for evaluation for low oxygen saturation. He c/o recent SOB, productive cough. He has recent diffuse abd pain, subjective fever, chills. Poor PO intake. No chest pain. - Physicial Exam PE: GENERAL: Awake, alert, and fully oriented, in no acute distress HEAD: No signs of trauma EYES: PERRLA, EOMI, sclera anicteric, conjunctiva clear ENT: Auricles normal inspection, hearing grossly normal, nares patent, oropharynx clear without exudates. Moist mucosa NECK: Normal ROM, supple, no lymphadenopathy, JVD, or masses LUNGS: Dec air entry B/L, no wheezes, rhonchi, or rales. HEART: Regular rate and rhythm, normal S1 and S2, no murmurs, rubs or gallops ABDOMEN: Soft, nontender, normoactive bowel sounds. No guarding, no rebound. No masses EXTREMITIES: Normal range of motion, no edema. No clubbing or cyanosis. No cords, erythema, or tenderness NEUROLOGICAL: Cranial nerves II through XII grossly intact. Normal speech, normal gait SKIN: Warm, Dry, normal turgor, no rashes or lesions noted. - Medical Decision Making Symptoms initially c/w COPD exacerbation. However, patient's abdominal pain worsened during ED stay. Noted to have abdominal tenderness after he was admitted to Dr. Hammond. D/w Dr. Hammond, will obtain CT a/p in ED.
[2017-02-18] MEDS ORDERED: ALBUTEROL SO4 2.5/IPRATROPIUM 0.5 INH SOL 3 ML VIAL.NEB. NEB SCH (15:30)
[2017-02-18] MEDS ORDERED: DOCUSATE SODIUM 100 MG CAPSULE (FP) PO PRN (15:47)
[2017-02-18] MEDS ORDERED: ACETAMINOPHEN 325 MG TABLET (FP) PO PRN (15:47)
[2017-02-18] MEDS ORDERED: ALBUTEROL SO4 0.083% IH SOL 2.5 MG/3 ML VIAL.NEB. NEB PRN (15:47)
--- NOTE | 2017-02-18 15:53 | HP ---
Admitting History and Physical - Primary Care Physician PCP: Dm Castillo - Admission Chief Complaint: I'm having a COPD exacerbation History of Present Illness: Mr Harris is a very pleasant 67 year old male who comes in with a COPD exacerbation. He was in his normal state of health until 3 days ago when he developed severe non-productive coughing with shortness of breath. He says the cough started off small but steadily progressed. He felt feverish with the cough but could not take his temperature. The cough was non-productive. He was coughing so severely that he would experience lightheadedness with the cough. He did not pass out or fall. He also had stomach pain with nausea and vomiting from the coughing. He denies chest pain with the cough. He denies diarrhea, constipation, difficulty or pain on urination, or swelling. The coughing and shortness of breath became so severe that he presented here. He denies sick contacts and is up to date on his influenza and pneumonia vaccine. History Source: Patient Limitations to Obtaining History: No Limitations - Past Medical History Cardiovascular: Yes: Hyperlipdemia Pulmonary: Yes: COPD - Past Surgical History Past Surgical History: Yes: None - Smoking History Smoking history: Former smoker Have you smoked in the past 12 months: No If you are a former smoker, when did you quit?: 1987 - Alcohol/Substance Use Hx Alcohol Use: No History of Substance Use: reports: None - Social History Usual Living Arrangement: Yes: With Spouse ADL: Independent Occupation: Works in construction Home Medications - Allergies Allergies/Adverse Reactions: Allergies Allergy/AdvReac Type Severity Reaction Status Date / Time morphine AdvReac Severe Vomiting Verified 02/18/17 11:14 oxycodone AdvReac Severe Vomiting Verified 02/18/17 11:14 - Home Medications Home Medications: Ambulatory Orders Fluticasone/Salmeterol [Advair 250-50 Diskus] 500 each IH BID 04/22/15 Roflumilast [Daliresp -] 500 mcg PO DAILY #30 tablet 04/28/15 Aspirin Coated [Ecotrin -] 81 mg PO DAILY #0 08/25/15 Zolpidem Tartrate [Zolpidem Tartrate ER] 12.5 mg PO HS 08/25/15 Gabapentin [Neurontin -] 200 mg PO 0600,1200,1800 04/01/16 Albuterol Sulfate Inhaler - [Ventolin HFA Inhaler -] 1 - 2 inh PO Q4H PRN Albuterol Sulfate [Proair Respiclick] 90 mcg IH DAILY 05/16/16 Tiotropium [place] [Spiriva] 18 mcg IH DAILY 05/16/16 Aclidinium [place] [Tudorza -] 1 inh PO BID 02/18/17 Fluticasone/Salmeterol [Advair 250-50 Diskus] 1 each IH DAILY 02/18/17 Ibuprofen [Motrin -] 800 mg PO TID PRN 02/18/17 Naproxen 500 mg PO BID 02/18/17 Prednisone 5 mg PO DAILY 02/18/17 Prednisone [Deltasone -] 2.5 mg PO BID 02/18/17 Family Disease History - Family Disease History Family Disease History: Heart Disease: Father, CA: Mother Review of Systems Findings/Remarks: Full review of systems obtained, as per HPI and otherwise negative Physical Examination Vital Signs: Vital Signs Temperature 36.4 C 02/18/17 11:16 Pulse Rate 77 02/18/17 11:16 Respiratory Rate 20 02/18/17 11:16 Blood Pressure 118/78 02/18/17 11:16 O2 Sat by Pulse Oximetry (%) 91 L 02/18/17 11:16 Constitutional: Yes: Well Nourished, Calm, Mild Distress, Other Eyes: Yes: Conjunctiva Clear, PERRL HENT: Yes: Atraumatic, Normocephalic Cardiovascular: Yes: Tachycardia. No: Pulse Irregular, Gallop, Murmur, Rub Respiratory: Yes: Cough (non-productive), On Nasal O2, Rhonchi, Tachypnea, Wheezes. No: Regular, CTA Bilaterally Gastrointestinal: Yes: Normal Bowel Sounds, Soft. No: Distention, Tenderness Extremities: Yes: WNL Edema: No Labs: CBC, BMP 02/18/17 13:55 02/18/17 13:55 Imaging - Results Chest X-ray: Report Reviewed, Image Reviewed Problem List - Problems (1) Acute exacerbation of chronic obstructive pulmonary disease Assessment/Plan: -patient presents with COPD exacerbation -check flu swab -admit to hospital -oxygen support -solumedrol 40mg IV q6h -duonebs -zithromax -pulmonary consult Code(s): J44.1 - CHRONIC OBSTRUCTIVE PULMONARY DISEASE W (ACUTE) EXACERBATION (2) Intractable nausea and vomiting Assessment/Plan: -secondary to coughing from COPD exacerbation -treat COPD -zofran Code(s): R11.2 - NAUSEA WITH VOMITING, UNSPECIFIED Qualifiers: Vomiting type: unspecified Qualified Code(s): R11.2 - Nausea with vomiting , unspecified
[2017-02-18] MEDS ORDERED: AZITHROMYCIN IVPB 250 ML IVPB ONE (16:07)
[2017-02-18] MEDS: AZITHROMYCIN IVPB 500 MG in DEXTROSE 5%-WATER - 250 ML IVPB SCH (16:18)
[2017-02-18] MEDS ORDERED: ONDANSETRON 4 MG/2 ML VIAL ONE (16:35)
[2017-02-18] MEDS: ONDANSETRON 4 MG/2 ML VIAL IVPUSH PRN (16:38)
[2017-02-18] MEDS ORDERED: METOCLOPRAMIDE HCL INJECTION 10 MG/2 ML VIAL IVPB ONE (16:50)
[2017-02-18] MEDS ORDERED: SUCRALFATE 1 GM TABLET (FP) PO ONE (16:52)
[2017-02-18] MEDS ORDERED: SUCRALFATE 1 GM TABLET (FP) ONE (16:54)
[2017-02-18] MEDS ORDERED: METOCLOPRAMIDE HCL INJECTION 10 MG/2 ML VIAL ONE (16:54)
[2017-02-18] MEDS: GABAPENTIN 100 MG CAPSULE (FP) PO SCH (21:45)
[2017-02-18] MEDS: methylPREDNISolone NA SUCC 40 MG/1 ML VIAL IVPUSH SCH (21:45)
[2017-02-18] MEDS ORDERED: ACLIDINIUM BROMIDE PO SCH (22:00)
[2017-02-18] MEDS: ALBUTEROL SO4 2.5/IPRATROPIUM 0.5 INH SOL 3 ML VIAL.NEB. NEB SCH (23:33)
[2017-02-18] MEDS: ZOLPIDEM TARTRATE 5 MG TABLET PO PRN (23:54)
[2017-02-19] MEDS: methylPREDNISolone NA SUCC 40 MG/1 ML VIAL IVPUSH SCH ×4 (02:48→22:26)
[2017-02-19] MEDS: GABAPENTIN 100 MG CAPSULE (FP) PO SCH ×3 (06:22→22:26)
[2017-02-19] MEDS: ALBUTEROL SO4 2.5/IPRATROPIUM 0.5 INH SOL 3 ML VIAL.NEB. NEB SCH ×4 (06:32→23:55)
[2017-02-19 09:20] LABS: ANION GAP 13 (8-16); BLOOD UREA NITROGEN 16 mg/dL (7-18); CALCIUM 9.1 mg/dL (8.5-10.1); CHLORIDE 104 mmol/L (98-107); CO2 23 mmol/L (21-32); CREATININE 0.9 mg/dL (0.7-1.3); GLUCOSE,RANDOM 146 mg/dL (74-106); MAGNESIUM 2.2 mg/dL (1.8-2.4); PHOSPHOROUS 4.8 mg/dL (2.5-4.9); POTASSIUM 4.2 mmol/L (3.5-5.1); SODIUM 140 mmol/L (136-145)
--- NOTE | 2017-02-19 09:26 | EKG ---
Test Reason : Blood Pressure : / mmHG Vent. Rate : 074 BPM Atrial Rate : 074 BPM P-R Int : 124 ms QRS Dur : 090 ms QT Int : 406 ms P-R-T Axes : 018 070 041 degrees QTc Int : 450 ms NORMAL SINUS RHYTHM NONSPECIFIC ST AND T WAVE ABNORMALITY ABNORMAL ECG WHEN COMPARED WITH ECG OF 16-MAY-2016 11:04, NO SIGNIFICANT CHANGE WAS FOUND Confirmed by MD Steve, Timoteo ([id number]) on 02/19/2017 9:26:44 AM Referred By: Confirmed By:Timoteo Wilson MD
[2017-02-19 09:29] LABS: BASO % 0.1 % (0-2.0); HEMATOCRIT 42.8 % (35.4-49); HEMOGLOBIN 14.1 GM/dL (11.7-16.9); LYMPH % 4.9 % (8-40); MCH 31.7 pg (25.7-33.7); MEAN CELL VOLUME 96.2 fl (80-96); MEAN PLT VOLUME 7.7 fl (7.5-11.1); PLATELET COUNT 315 K/MM3 (134-434); RBC 4.45 M/mm3 (4.00-5.60); RDW 13.8 % (11.9-15.9)
[2017-02-19] MEDS: ENOXAPARIN NA (PORCINE) 40 MG/0.4 ML DISP.SYRIN SQ SCH (10:14)
[2017-02-19] MEDS: ASPIRIN COATED 81 MG TABLET.EC PO SCH (10:14)
--- NOTE | 2017-02-19 11:34 | PN ---
Progress Note, Physician Chief Complaint: Mr Harris says he is feeling much better today. Says his shortness of breath is much improved. Still with significant cough, non-productive. No cp. nausea has resolved and now eating. - Current Medication List Current Medications: Active Medications Acetaminophen (Tylenol -) 650 mg PO Q4H PRN PRN Reason: FEVER OR PAIN Albuterol Sulfate (Ventolin 0.083% Nebulizer Soln -) 1 amp NEB Q4H PRN PRN Reason: SHORT OF BREATH/WHEEZING Albuterol/Ipratropium (Duoneb -) 1 amp NEB QIDR [facility] Last Admin: 02/19/17 06:32 Dose: 1 amp Aspirin (Ecotrin -) 81 mg PO DAILY [facility] Last Admin: 02/19/17 10:14 Dose: 81 mg Docusate Sodium (Colace -) 100 mg PO BID PRN PRN Reason: CONSTIPATION Enoxaparin Sodium (Lovenox -) 40 mg SQ DAILY [facility] Last Admin: 02/19/17 10:14 Dose: 40 mg Gabapentin (Neurontin -) 200 mg PO TID [facility] Last Admin: 02/19/17 06:22 Dose: 200 mg Azithromycin 500 mg/ Dextrose 250 mls @ 250 mls/hr IVPB DAILY [facility] Last Admin: 02/18/17 16:18 Dose: 250 mls/hr Methylprednisolone Sodium Succinate (Solu-Medrol -) 40 mg IVPUSH Q6H-IV [facility] Last Admin: 02/19/17 10:15 Dose: 40 mg Ondansetron HCl (Zofran Injection) 4 mg IVPUSH Q6H PRN PRN Reason: NAUSEA Last Admin: 02/18/17 16:38 Dose: 4 mg Polyethylene Glycol (Miralax (For Daily Use) -) 17 gm PO DAILY [facility] Roflumilast (Daliresp -) 500 mcg PO DAILY [facility] Tiotropium [place] (Spiriva -) 1 puff IH DAILY [facility] Zolpidem Tartrate (Ambien -) 10 mg PO HS PRN PRN Reason: INSOMNIA Stop: 02/19/17 23:45 Last Admin: 02/18/17 23:54 Dose: 10 mg - Objective Vital Signs: Vital Signs Temperature 36.8 C 02/19/17 06:00 Pulse Rate 88 02/19/17 09:14 Respiratory Rate 20 02/19/17 09:14 Blood Pressure 120/70 02/19/17 09:14 O2 Sat by Pulse Oximetry (%) 95 02/18/17 21:00 Constitutional: Yes: Well Nourished, No Distress, Calm Cardiovascular: Yes: Regular Rate and Rhythm. No: Gallop, Murmur, Rub Respiratory: Yes: Regular, Diminished, On Nasal O2, Other (shallow). No: Rales , Rhonchi, Wheezes Gastrointestinal: Yes: Normal Bowel Sounds, Soft. No: Distention, Tenderness Extremities: Yes: WNL Edema: No Labs: CBC, BMP 02/19/17 06:00 02/19/17 06:00 Problem List - Problems (1) Acute exacerbation of chronic obstructive pulmonary disease Code(s): J44.1 - CHRONIC OBSTRUCTIVE PULMONARY DISEASE W (ACUTE) EXACERBATION (2) Intractable nausea and vomiting Code(s): R11.2 - NAUSEA WITH VOMITING, UNSPECIFIED Qualifiers: Vomiting type: unspecified Qualified Code(s): R11.2 - Nausea with vomiting , unspecified (3) Pneumonia Code(s): J18.9 - PNEUMONIA, UNSPECIFIED ORGANISM Assessment/Plan (1) Acute exacerbation of chronic obstructive pulmonary disease Assessment/Plan: -pulmonary note reviewed -patient much improved -continue bronchodilators and solumedrol -add robitussin dm for cough suppression Code(s): J44.1 - CHRONIC OBSTRUCTIVE PULMONARY DISEASE W (ACUTE) EXACERBATION (2) Intractable nausea and vomiting Assessment/Plan: -resolved Code(s): R11.2 - NAUSEA WITH VOMITING, UNSPECIFIED Qualifiers: Vomiting type: unspecified Qualified Code(s): R11.2 - Nausea with vomiting , unspecified (3) Pneumonia -pulmonary ordered urine antigens -CT scan showing infiltrates -presented with leukocytosis yesterday as well -will add rocephin to regimen and treat for CAP
[2017-02-19] MEDS ORDERED: PT OWN MED DRAWER 7, Y5N ONE ×2 (12:17→21:20)
[2017-02-19] MEDS: AZITHROMYCIN IVPB 500 MG in DEXTROSE 5%-WATER - 250 ML IVPB SCH (12:56)
[2017-02-19] MEDS: guaiFENesin/D-METHORPHAN HB 10 ML UNIT-DOSE CUPS PO PRN (12:59)
--- NOTE | 2017-02-19 14:15 | PN ---
Progress Note (short form) - Note Progress Note: PULMONARY CONSULTATION DICTATED 02/19/17 IMP COPD EXAERBATION RLL PNEUMONIA N/V PLAN IV STEROIDS INHALED BRONCHODILATORS O2 ABX SPUTUM C+S URINARY ANTIGENS CHEST CT ANTI-TUSSIVES DR BROCK Problem List - Problems (1) Pneumonia Code(s): J18.9 - PNEUMONIA, UNSPECIFIED ORGANISM (2) Intractable nausea and vomiting Code(s): R11.2 - NAUSEA WITH VOMITING, UNSPECIFIED Qualifiers: Vomiting type: unspecified Qualified Code(s): R11.2 - Nausea with vomiting , unspecified (3) Hyperlipidemia Code(s): E78.5 - HYPERLIPIDEMIA, UNSPECIFIED (4) Acute exacerbation of chronic obstructive pulmonary disease Code(s): J44.1 - CHRONIC OBSTRUCTIVE PULMONARY DISEASE W (ACUTE) EXACERBATION
--- NOTE | 2017-02-19 14:36 | CONS ---
DATE OF CONSULTATION: 02/19/2017 PULMONARY CONSULTATION REFERRING PHYSICIAN: Raman Hammond MD HISTORY OF PRESENT ILLNESS: The patient is a 67-year-old white male with past medical history of COPD and history of tobacco use, quit years ago. He was admitted to [facility] with complaint of a 4 to 5-day history of increasing shortness of breath, nonproductive cough, fever and chills. The patient denied any complaints of chest pain, although he did have abdominal pain and some nausea and some vomiting. His states the patient felt feverish and had episodes of shaking chills for the past few days. He presented to the emergency room with the above. In the ER, he had a CT of the abdomen performed, which revealed new interstitial infiltrate in the right lateral base. The patient was admitted. He was started on an inhaled bronchodilator, steroids and antibiotics. The patient denies any hemoptysis. He denies any history of recent travel. There is no history of DVT or PE in the past. PAST MEDICAL HISTORY: Again, includes COPD. SOCIAL HISTORY: Born in [place]. Moved to the [facility] many years ago. History of tobacco use, quit in 1987. REVIEW OF SYSTEMS: Positive shortness of breath, positive cough, positive fever, positive chills. No chest pain, no palpitations. Positive nausea, positive vomiting. CURRENT MEDICATIONS: Include Zofran, Solu-Medrol, Tylenol, Lovenox, Neurontin, Spiriva, Robitussin, Ambien, albuterol, DuoNeb, Colace, MiraLAX, Ecotrin and Daliresp. PHYSICAL EXAMINATION: General: The patient is thin white male, awake, alert, in no acute distress. Vital Signs: He is currently afebrile. Blood pressure is 120/70. Respiratory rate is 20. O2 saturation is 94% on 2 L. HEENT: Normocephalic, atraumatic. Neck: Supple. Heart: Regular S1, S2. Chest: A few scattered wheezing. Abdomen: Soft. Bowel sounds are positive. Extremities: Without cyanosis or edema. DIAGNOSTIC STUDIES: WBC 8, hemoglobin 14.1, hematocrit 42.8; platelet count 315,000. BUN 16, creatinine 0.9. BNP 520. Chest x-ray: No infiltrates, no effusions. Severe COPD. CT of the abdomen: No acute abdominal process. There is a subpleural interstitial infiltrate in the posterolateral basal segment of the right lower lobe. IMPRESSION: 1. Chronic obstructive pulmonary disease, acute exacerbation. 2. Pneumonia. PLAN: IV steroids, inhaled bronchodilators, supplemental nasal oxygen, antibiotic therapy, sputum for culture and sensitivity, antitussive, CT scan of the chest. JUDY BROCK M.D. LEISA/[id number]
[2017-02-19] MEDS: POLYETHYLENE GLYCOL 3350 119 GM BTL PO SCH (15:35)
[2017-02-19] MEDS: ROFLUMILAST 500 MCG TABLET PO SCH (15:36)
[2017-02-19] MEDS: TIOTROPIUM BROMIDE 18 MCG/INH (DEVICE W/ 5 CAPSULES) IH SCH (15:38)
[2017-02-19] MEDS: LACTOBACILLUS ACIDOPHILUS 1 EACH TAB (FP) PO SCH (15:40)
[2017-02-19] MEDS: CEFTRIAXONE 1 G/50 ML PREMIX 50 ML IVPB SCH (15:44)
[2017-02-19] MEDS: BUDESONIDE/FORMETEROL FUMARATE 160/4.5 mcg INHALER IH SCH (22:25)
[2017-02-19] MEDS: ZOLPIDEM TARTRATE 5 MG TABLET PO PRN (22:26)
[2017-02-20] MEDS: methylPREDNISolone NA SUCC 40 MG/1 ML VIAL IVPUSH SCH ×4 (02:24→22:03)
[2017-02-20] MEDS: GABAPENTIN 100 MG CAPSULE (FP) PO SCH ×3 (06:32→22:03)
[2017-02-20] MEDS: ALBUTEROL SO4 2.5/IPRATROPIUM 0.5 INH SOL 3 ML VIAL.NEB. NEB SCH ×4 (06:56→23:22)
[2017-02-20] MEDS: guaiFENesin/D-METHORPHAN HB 10 ML UNIT-DOSE CUPS PO PRN ×4 (07:04→22:03)
[2017-02-20 07:14] LABS: BASO % 0.4 % (0-2.0); HEMATOCRIT 41.4 % (35.4-49); HEMOGLOBIN 13.5 GM/dL (11.7-16.9); LYMPH % 3.5 % (8-40); MCH 31.3 pg (25.7-33.7); MCHC 32.7 g/dl (32.0-35.9); MEAN CELL VOLUME 95.8 fl (80-96); MEAN PLT VOLUME 7.5 fl (7.5-11.1); MONO % 3.8 % (3.8-10.2); NEUT % 92.3 % (42.8-82.8); PLATELET COUNT 302 K/MM3 (134-434); RBC 4.33 M/mm3 (4.00-5.60); RDW 13.1 % (11.9-15.9); WHITE BLOOD COUNT 18.2 K/mm3 (4.0-10.0)
[2017-02-20 07:42] LABS: ANION GAP 12 (8-16); BLOOD UREA NITROGEN 20 mg/dL (7-18); CALCIUM 9.5 mg/dL (8.5-10.1); CHLORIDE 106 mmol/L (98-107); CO2 25 mmol/L (21-32); CREATININE 0.9 mg/dL (0.7-1.3); GLUCOSE,RANDOM 140 mg/dL (74-106); MAGNESIUM 2.4 mg/dL (1.8-2.4); PHOSPHOROUS 3.6 mg/dL (2.5-4.9); POTASSIUM 4.1 mmol/L (3.5-5.1); SODIUM 143 mmol/L (136-145)
[2017-02-20] MEDS ORDERED: PT OWN MED DRAWER 7, Y5N ONE ×3 (09:58→21:58)
[2017-02-20] MEDS ORDERED: CEFTRIAXONE 1 G/50 ML PREMIX 50 ML IVPB SCH (10:00)
[2017-02-20] MEDS: ENOXAPARIN NA (PORCINE) 40 MG/0.4 ML DISP.SYRIN SQ SCH (10:15)
[2017-02-20] MEDS: ASPIRIN COATED 81 MG TABLET.EC PO SCH (10:16)
[2017-02-20] MEDS: LACTOBACILLUS ACIDOPHILUS 1 EACH TAB (FP) PO SCH (10:16)
[2017-02-20] MEDS: TIOTROPIUM BROMIDE 18 MCG/INH (DEVICE W/ 5 CAPSULES) IH SCH (10:17)
[2017-02-20] MEDS: BUDESONIDE/FORMETEROL FUMARATE 160/4.5 mcg INHALER IH SCH ×2 (10:19→22:03)
[2017-02-20] MEDS: ROFLUMILAST 500 MCG TABLET PO SCH (10:27)
[2017-02-20] MEDS: CEFTRIAXONE 1 G/50 ML PREMIX 50 ML IVPB SCH (10:29)
[2017-02-20] MEDS: AZITHROMYCIN IVPB 500 MG in DEXTROSE 5%-WATER - 250 ML IVPB SCH (11:55)
--- NOTE | 2017-02-20 13:24 | PN ---
Progress Note, Physician History of Present Illness: PULMONARY ALERT,LESS DYSPNEIC,+COUGH - Current Medication List Current Medications: Active Medications Acetaminophen (Tylenol -) 650 mg PO Q4H PRN PRN Reason: FEVER OR PAIN Albuterol Sulfate (Ventolin 0.083% Nebulizer Soln -) 1 amp NEB Q4H PRN PRN Reason: SHORT OF BREATH/WHEEZING Albuterol/Ipratropium (Duoneb -) 1 amp NEB QIDR [facility] Last Admin: 02/20/17 11:15 Dose: 1 amp Aspirin (Ecotrin -) 81 mg PO DAILY [facility] Last Admin: 02/20/17 10:16 Dose: 81 mg Budesonide/Formoterol Fumarate (Symbicort 160/4.5mcg -) 2 puff IH BID [facility] Last Admin: 02/20/17 10:19 Dose: 2 puff Docusate Sodium (Colace -) 100 mg PO BID PRN PRN Reason: CONSTIPATION Enoxaparin Sodium (Lovenox -) 40 mg SQ DAILY [facility] Last Admin: 02/20/17 10:15 Dose: 40 mg Gabapentin (Neurontin -) 200 mg PO TID [facility] Last Admin: 02/20/17 06:32 Dose: 200 mg Guaifenesin (Robitussin Dm -) 10 ml PO Q4H PRN PRN Reason: COUGH Last Admin: 02/20/17 11:06 Dose: 10 ml Azithromycin 500 mg/ Dextrose 250 mls @ 250 mls/hr IVPB DAILY [facility] Last Admin: 02/20/17 11:55 Dose: 250 mls/hr CEFTRIAXONE 1 G/50 ML PREMIX (Ceftriaxone 1 Gm-D5w Bag) 50 mls @ 100 mls/hr IVPB DAILY [facility] Last Admin: 02/20/17 10:29 Dose: 100 mls/hr Lactobacillus Acidophilus (Bacid -) 1 tab PO DAILY [facility] Last Admin: 02/20/17 10:16 Dose: 1 tab Methylprednisolone Sodium Succinate (Solu-Medrol -) 40 mg IVPUSH Q6H-IV [facility] Last Admin: 02/20/17 10:16 Dose: 40 mg Ondansetron HCl (Zofran Injection) 4 mg IVPUSH Q6H PRN PRN Reason: NAUSEA Last Admin: 02/18/17 16:38 Dose: 4 mg Polyethylene Glycol (Miralax (For Daily Use) -) 17 gm PO DAILY [facility] Last Admin: 02/19/17 15:35 Dose: 17 gm Roflumilast (Daliresp -) 500 mcg PO DAILY [facility] Last Admin: 02/20/17 10:27 Dose: 500 mcg Tiotropium [place] (Spiriva -) 1 puff IH DAILY [facility] Last Admin: 02/20/17 10:17 Dose: 1 inh - Objective Vital Signs: Vital Signs Temperature 98.2 F 02/20/17 06:00 Pulse Rate 92 H 02/20/17 11:15 Respiratory Rate 02/20/17 06:00 Blood Pressure 106/58 02/20/17 06:00 O2 Sat by Pulse Oximetry (%) 93 L 02/20/17 11:15 Constitutional: Yes: Well Nourished, Calm Eyes: Yes: WNL HENT: Yes: WNL Neck: Yes: WNL Cardiovascular: Yes: Regular Rate and Rhythm, S1, S2 Respiratory: Yes: Rales (FEW CRACKLES R BASE) Gastrointestinal: Yes: Normal Bowel Sounds, Soft Extremities: Yes: WNL Edema: No Labs: CBC, BMP 02/20/17 07:05 02/20/17 07:05 - ....Imaging Cat Scan: Report Reviewed, Image Reviewed Problem List - Problems (1) Pneumonia Code(s): J18.9 - PNEUMONIA, UNSPECIFIED ORGANISM (2) Intractable nausea and vomiting Code(s): R11.2 - NAUSEA WITH VOMITING, UNSPECIFIED Qualifiers: Vomiting type: unspecified Qualified Code(s): R11.2 - Nausea with vomiting , unspecified (3) Hyperlipidemia Code(s): E78.5 - HYPERLIPIDEMIA, UNSPECIFIED (4) Acute exacerbation of chronic obstructive pulmonary disease Code(s): J44.1 - CHRONIC OBSTRUCTIVE PULMONARY DISEASE W (ACUTE) EXACERBATION Assessment/Plan IMP COPD EXAERBATION RLL PNEUMONIA N/V PLAN IV STEROIDS INHALED BRONCHODILATORS O2 ABX ANTI-TUSSIVES DR BROCK Problem List - Problems (1) Pneumonia Code(s): J18.9 - PNEUMONIA, UNSPECIFIED ORGANISM (2) Intractable nausea and vomiting Code(s): R11.2 - NAUSEA WITH VOMITING, UNSPECIFIED Qualifiers: Vomiting type: unspecified Qualified Code(s): R11.2 - Nausea with vomiting , unspecified (3) Hyperlipidemia Code(s): E78.5 - HYPERLIPIDEMIA, UNSPECIFIED (4) Acute exacerbation of chronic obstructive pulmonary disease Code(s): J44.1 - CHRONIC OBSTRUCTIVE PULMONARY DISEASE W (ACUTE) EXACERBATION
[2017-02-20] MEDS: POLYETHYLENE GLYCOL 3350 119 GM BTL PO SCH (14:50)
[2017-02-20] MEDS ORDERED: BENZOCAINE/MENTH/CETYLPYRD CL 1 EACH LOZENGE MM PRN (18:54)
[2017-02-20] MEDS ORDERED: ZOLPIDEM TARTRATE 5 MG TABLET PO ONE (23:16)
[2017-02-21] MEDS: methylPREDNISolone NA SUCC 40 MG/1 ML VIAL IVPUSH SCH ×3 (02:25→18:51)
[2017-02-21] MEDS: guaiFENesin/D-METHORPHAN HB 10 ML UNIT-DOSE CUPS PO PRN ×2 (03:33→11:33)
[2017-02-21] MEDS: ONDANSETRON 4 MG/2 ML VIAL IVPUSH PRN (03:38)
[2017-02-21] MEDS: GABAPENTIN 100 MG CAPSULE (FP) PO SCH ×3 (06:07→22:06)
[2017-02-21] MEDS: ALBUTEROL SO4 2.5/IPRATROPIUM 0.5 INH SOL 3 ML VIAL.NEB. NEB SCH ×3 (06:20→17:24)
[2017-02-21] MEDS ORDERED: PT OWN MED DRAWER 7, Y5N ONE (09:31)
[2017-02-21] MEDS: ASPIRIN COATED 81 MG TABLET.EC PO SCH (11:23)
[2017-02-21] MEDS: LACTOBACILLUS ACIDOPHILUS 1 EACH TAB (FP) PO SCH (11:23)
[2017-02-21] MEDS: ENOXAPARIN NA (PORCINE) 40 MG/0.4 ML DISP.SYRIN SQ SCH (11:23)
[2017-02-21] MEDS: ROFLUMILAST 500 MCG TABLET PO SCH (11:23)
[2017-02-21] MEDS: CEFTRIAXONE 1 G/50 ML PREMIX 50 ML IVPB SCH (11:24)
[2017-02-21] MEDS: AZITHROMYCIN IVPB 500 MG in DEXTROSE 5%-WATER - 250 ML IVPB SCH (11:36)
[2017-02-21] MEDS: POLYETHYLENE GLYCOL 3350 119 GM BTL PO SCH (11:45)
[2017-02-21] MEDS: TIOTROPIUM BROMIDE 18 MCG/INH (DEVICE W/ 5 CAPSULES) IH SCH (11:46)
[2017-02-21] MEDS ORDERED: SIMETHICONE 80 MG TAB.CHEW (FP) PO PRN (11:56)
--- NOTE | 2017-02-21 11:57 | PN ---
Progress Note, Physician Chief Complaint: Mr Harris says his chest feels really tight and that he still has a significant cough. No cp or n/v. RN states patient complains of gas pain. - Current Medication List Current Medications: Active Medications Acetaminophen (Tylenol -) 650 mg PO Q4H PRN PRN Reason: FEVER OR PAIN Albuterol Sulfate (Ventolin 0.083% Nebulizer Soln -) 1 amp NEB Q4H PRN PRN Reason: SHORT OF BREATH/WHEEZING Albuterol/Ipratropium (Duoneb -) 1 amp NEB QIDR [facility] Last Admin: 02/21/17 11:14 Dose: 1 amp Aspirin (Ecotrin -) 81 mg PO DAILY [facility] Last Admin: 02/21/17 11:23 Dose: 81 mg Benzocaine/Menthol (Cepacol Lozenge -) 1 each MM PRN PRN PRN Reason: SORE THROAT Budesonide/Formoterol Fumarate (Symbicort 160/4.5mcg -) 2 puff IH BID [facility] Last Admin: 02/20/17 22:03 Dose: 2 puff Docusate Sodium (Colace -) 100 mg PO BID PRN PRN Reason: CONSTIPATION Enoxaparin Sodium (Lovenox -) 40 mg SQ DAILY [facility] Last Admin: 02/21/17 11:23 Dose: 40 mg Gabapentin (Neurontin -) 200 mg PO TID [facility] Last Admin: 02/21/17 06:07 Dose: 200 mg Guaifenesin/Codeine Phosphate (Robitussin Ac -) 10 ml PO Q8H PRN PRN Reason: COUGH Azithromycin 500 mg/ Dextrose 250 mls @ 250 mls/hr IVPB DAILY [facility] Last Admin: 02/21/17 11:36 Dose: 250 mls/hr CEFTRIAXONE 1 G/50 ML PREMIX (Ceftriaxone 1 Gm-D5w Bag) 50 mls @ 100 mls/hr IVPB DAILY [facility] Last Admin: 02/21/17 11:24 Dose: 100 mls/hr Lactobacillus Acidophilus (Bacid -) 1 tab PO DAILY [facility] Last Admin: 02/21/17 11:23 Dose: 1 tab Methylprednisolone Sodium Succinate (Solu-Medrol -) 40 mg IVPUSH Q6H-IV [facility] Last Admin: 02/21/17 11:23 Dose: 40 mg Ondansetron HCl (Zofran Injection) 4 mg IVPUSH Q6H PRN PRN Reason: NAUSEA Last Admin: 02/21/17 03:38 Dose: 4 mg Polyethylene Glycol (Miralax (For Daily Use) -) 17 gm PO DAILY [facility] Last Admin: 02/21/17 11:45 Dose: 17 gm Roflumilast (Daliresp -) 500 mcg PO DAILY [facility] Last Admin: 02/21/17 11:23 Dose: 500 mcg Tiotropium [place] (Spiriva -) 1 puff IH DAILY [facility] Last Admin: 02/21/17 11:46 Dose: 1 inh Zolpidem Tartrate (Ambien -) 10 mg PO HS PRN - Objective Vital Signs: Vital Signs Temperature 36.4 C L 02/21/17 06:00 Pulse Rate 75 02/21/17 10:22 Respiratory Rate 20 02/21/17 06:00 Blood Pressure 121/73 02/21/17 06:00 O2 Sat by Pulse Oximetry (%) 95 02/21/17 10:22 Constitutional: Yes: Well Nourished, No Distress, Calm Cardiovascular: Yes: Regular Rate and Rhythm. No: Gallop, Murmur, Rub Respiratory: Yes: Regular, CTA Bilaterally, Cough, On Nasal O2, Other (fair air movement). No: Rales, Rhonchi, Wheezes Gastrointestinal: Yes: Normal Bowel Sounds, Soft. No: Distention, Tenderness Extremities: Yes: WNL Edema: No Labs: CBC, BMP 02/20/17 07:05 02/20/17 07:05 Problem List - Problems (1) Acute exacerbation of chronic obstructive pulmonary disease Code(s): J44.1 - CHRONIC OBSTRUCTIVE PULMONARY DISEASE W (ACUTE) EXACERBATION (2) Intractable nausea and vomiting Code(s): R11.2 - NAUSEA WITH VOMITING, UNSPECIFIED Qualifiers: Vomiting type: unspecified Qualified Code(s): R11.2 - Nausea with vomiting , unspecified (3) Pneumonia Code(s): J18.9 - PNEUMONIA, UNSPECIFIED ORGANISM Assessment/Plan (1) Acute exacerbation of chronic obstructive pulmonary disease Assessment/Plan: -appreciate pulmonary assistance -continue solumedrol, defer taper to pulmonary -continue antibiotics -continue bronchodilators -discussed allergy, patient says morphine made him nauseated and that is the allergy -will trial codeine for cough suppression, patient in agreement Code(s): J44.1 - CHRONIC OBSTRUCTIVE PULMONARY DISEASE W (ACUTE) EXACERBATION (2) Intractable nausea and vomiting Assessment/Plan: -resolved Code(s): R11.2 - NAUSEA WITH VOMITING, UNSPECIFIED Qualifiers: Vomiting type: unspecified Qualified Code(s): R11.2 - Nausea with vomiting , unspecified (3) Pneumonia -repeat chest CT showing no infiltrate -continue azithromycin as above, but will stop rocephin
--- NOTE | 2017-02-21 13:30 | PN ---
Progress Note, Physician History of Present Illness: PULMONARY ALERT,FEELING BETTER.LESS DYSPNEIC,LESS COUGH - Current Medication List Current Medications: Active Medications Acetaminophen (Tylenol -) 650 mg PO Q4H PRN PRN Reason: FEVER OR PAIN Albuterol Sulfate (Ventolin 0.083% Nebulizer Soln -) 1 amp NEB Q4H PRN PRN Reason: SHORT OF BREATH/WHEEZING Albuterol/Ipratropium (Duoneb -) 1 amp NEB QIDR [facility] Last Admin: 02/21/17 11:14 Dose: 1 amp Aspirin (Ecotrin -) 81 mg PO DAILY [facility] Last Admin: 02/21/17 11:23 Dose: 81 mg Benzocaine/Menthol (Cepacol Lozenge -) 1 each MM PRN PRN PRN Reason: SORE THROAT Budesonide/Formoterol Fumarate (Symbicort 160/4.5mcg -) 2 puff IH BID [facility] Last Admin: 02/20/17 22:03 Dose: 2 puff Docusate Sodium (Colace -) 100 mg PO BID PRN PRN Reason: CONSTIPATION Enoxaparin Sodium (Lovenox -) 40 mg SQ DAILY [facility] Last Admin: 02/21/17 11:23 Dose: 40 mg Gabapentin (Neurontin -) 200 mg PO TID [facility] Last Admin: 02/21/17 06:07 Dose: 200 mg Guaifenesin/Codeine Phosphate (Robitussin Ac -) 10 ml PO Q8H PRN PRN Reason: COUGH Azithromycin 500 mg/ Dextrose 250 mls @ 250 mls/hr IVPB DAILY [facility] Last Admin: 02/21/17 11:36 Dose: 250 mls/hr CEFTRIAXONE 1 G/50 ML PREMIX (Ceftriaxone 1 Gm-D5w Bag) 50 mls @ 100 mls/hr IVPB DAILY [facility] Last Admin: 02/21/17 11:24 Dose: 100 mls/hr Lactobacillus Acidophilus (Bacid -) 1 tab PO DAILY [facility] Last Admin: 02/21/17 11:23 Dose: 1 tab Methylprednisolone Sodium Succinate (Solu-Medrol -) 40 mg IVPUSH Q6H-IV [facility] Last Admin: 02/21/17 11:23 Dose: 40 mg Ondansetron HCl (Zofran Injection) 4 mg IVPUSH Q6H PRN PRN Reason: NAUSEA Last Admin: 02/21/17 03:38 Dose: 4 mg Polyethylene Glycol (Miralax (For Daily Use) -) 17 gm PO DAILY [facility] Last Admin: 02/21/17 11:45 Dose: 17 gm Roflumilast (Daliresp -) 500 mcg PO DAILY [facility] Last Admin: 02/21/17 11:23 Dose: 500 mcg Simethicone (Mylicon -) 80 mg PO Q4H PRN PRN Reason: GAS Tiotropium [place] (Spiriva -) 1 puff IH DAILY [facility] Last Admin: 02/21/17 11:46 Dose: 1 inh Zolpidem Tartrate (Ambien -) 10 mg PO HS PRN - Objective Vital Signs: Vital Signs Temperature 97.5 F L 02/21/17 06:00 Pulse Rate 75 02/21/17 10:22 Respiratory Rate 20 02/21/17 06:00 Blood Pressure 121/73 02/21/17 06:00 O2 Sat by Pulse Oximetry (%) 95 02/21/17 10:22 Constitutional: Yes: Well Nourished, Calm Eyes: Yes: WNL HENT: Yes: WNL Neck: Yes: WNL Cardiovascular: Yes: Regular Rate and Rhythm, S1, S2 Respiratory: Yes: Rales (FEW BASILAR CRACKLES) Gastrointestinal: Yes: Normal Bowel Sounds, Soft Extremities: Yes: WNL Edema: No Labs: CBC, BMP Problem List - Problems (1) Pneumonia Code(s): J18.9 - PNEUMONIA, UNSPECIFIED ORGANISM (2) Intractable nausea and vomiting Code(s): R11.2 - NAUSEA WITH VOMITING, UNSPECIFIED Qualifiers: Vomiting type: unspecified Qualified Code(s): R11.2 - Nausea with vomiting , unspecified (3) Hyperlipidemia Code(s): E78.5 - HYPERLIPIDEMIA, UNSPECIFIED (4) Acute exacerbation of chronic obstructive pulmonary disease Code(s): J44.1 - CHRONIC OBSTRUCTIVE PULMONARY DISEASE W (ACUTE) EXACERBATION Assessment/Plan IMP COPD EXAERBATION RLL PNEUMONIA N/V PLAN STEROID TAPER INHALED BRONCHODILATORS O2 ABX ANTI-TUSSIVES DR BROCK Problem List - Problems (1) Pneumonia Code(s): J18.9 - PNEUMONIA, UNSPECIFIED ORGANISM (2) Intractable nausea and vomiting Code(s): R11.2 - NAUSEA WITH VOMITING, UNSPECIFIED Qualifiers: Vomiting type: unspecified Qualified Code(s): R11.2 - Nausea with vomiting , unspecified (3) Hyperlipidemia Code(s): E78.5 - HYPERLIPIDEMIA, UNSPECIFIED (4) Acute exacerbation of chronic obstructive pulmonary disease Code(s): J44.1 - CHRONIC OBSTRUCTIVE PULMONARY DISEASE W (ACUTE) EXACERBATION
[2017-02-21] MEDS: guaiFENesin/CODEINE 10 ML UNIT-DOSE CUPS PO PRN ×2 (15:30→23:20)
[2017-02-21] MEDS: BUDESONIDE/FORMETEROL FUMARATE 160/4.5 mcg INHALER IH SCH ×2 (15:31→22:06)
[2017-02-21] MEDS: ZOLPIDEM TARTRATE 5 MG TABLET PO PRN (22:07)
[2017-02-22] MEDS: methylPREDNISolone NA SUCC 40 MG/1 ML VIAL IVPUSH SCH ×3 (02:21→18:08)
[2017-02-22] MEDS: ALBUTEROL SO4 2.5/IPRATROPIUM 0.5 INH SOL 3 ML VIAL.NEB. NEB SCH ×5 (06:00→23:58)
[2017-02-22] MEDS: GABAPENTIN 100 MG CAPSULE (FP) PO SCH ×3 (06:01→22:14)
[2017-02-22 08:00] LABS: HEMATOCRIT 41.3 % (35.4-49); HEMOGLOBIN 13.4 GM/dL (11.7-16.9); LYMPH % 3.6 % (8-40); MCH 31.3 pg (25.7-33.7); MCHC 32.6 g/dl (32.0-35.9); MEAN CELL VOLUME 96.1 fl (80-96); MEAN PLT VOLUME 7.2 fl (7.5-11.1); MONO % 6.3 % (3.8-10.2); NEUT % 90.1 % (42.8-82.8); PLATELET COUNT 332 K/MM3 (134-434); RBC 4.29 M/mm3 (4.00-5.60); RDW 13.7 % (11.9-15.9); WHITE BLOOD COUNT 14.7 K/mm3 (4.0-10.0)
[2017-02-22] MEDS: guaiFENesin/CODEINE 10 ML UNIT-DOSE CUPS PO PRN ×3 (08:17→23:33)
[2017-02-22 08:51] LABS: ANION GAP 6 (8-16); BLOOD UREA NITROGEN 23 mg/dL (7-18); CALCIUM 8.9 mg/dL (8.5-10.1); CHLORIDE 106 mmol/L (98-107); CO2 28 mmol/L (21-32); CREATININE 0.9 mg/dL (0.7-1.3); GLUCOSE,RANDOM 122 mg/dL (74-106); MAGNESIUM 2.5 mg/dL (1.8-2.4); PHOSPHOROUS 3.7 mg/dL (2.5-4.9); POTASSIUM 4.4 mmol/L (3.5-5.1); SODIUM 140 mmol/L (136-145)
[2017-02-22] MEDS: ROFLUMILAST 500 MCG TABLET PO SCH (09:54)
[2017-02-22] MEDS: BUDESONIDE/FORMETEROL FUMARATE 160/4.5 mcg INHALER IH SCH ×2 (09:54→22:15)
[2017-02-22] MEDS: AZITHROMYCIN IVPB 500 MG in DEXTROSE 5%-WATER - 250 ML IVPB SCH (09:55)
[2017-02-22] MEDS: TIOTROPIUM BROMIDE 18 MCG/INH (DEVICE W/ 5 CAPSULES) IH SCH (09:55)
[2017-02-22] MEDS: ENOXAPARIN NA (PORCINE) 40 MG/0.4 ML DISP.SYRIN SQ SCH (09:56)
[2017-02-22] MEDS: LACTOBACILLUS ACIDOPHILUS 1 EACH TAB (FP) PO SCH (09:56)
[2017-02-22] MEDS: ASPIRIN COATED 81 MG TABLET.EC PO SCH (09:57)
--- NOTE | 2017-02-22 11:00 | PN ---
Progress Note (short form) - Note Progress Note: c/o persistent cough. non productive. states he is able to ambulate to the bathroom but coughing fits start at rest. denies CP, fever, chills, N/V/C/D Current Medications Generic Name Dose Route Start Last Admin Trade Name Freq PRN Reason Stop Dose Admin Acetaminophen 650 mg 02/18/17 15:47 Tylenol - PO Q4H PRN FEVER OR PAIN Albuterol Sulfate 1 amp 02/18/17 15:47 Ventolin 0.083% Nebulizer Soln - NEB Q4H PRN SHORT OF BREATH/WHEEZING Albuterol/Ipratropium 1 amp 02/18/17 18:00 02/22/17 06:00 Duoneb - NEB Not Given QIDR [facility] Aspirin 81 mg 02/19/17 10:00 02/22/17 09:57 Ecotrin - PO 81 mg DAILY [facility] Administration Benzocaine/Menthol 1 each 02/20/17 18:54 Cepacol Lozenge - MM PRN PRN SORE THROAT Budesonide/Formoterol Fumarate 2 puff 02/19/17 22:00 02/22/17 09:54 Symbicort 160/4.5mcg - IH 2 puff BID [facility] Administration Docusate Sodium 100 mg 02/18/17 15:47 Colace - PO BID PRN CONSTIPATION Enoxaparin Sodium 40 mg 02/19/17 10:00 02/22/17 09:56 Lovenox - SQ 40 mg DAILY [facility] Administration Gabapentin 200 mg 02/18/17 22:00 02/22/17 06:01 Neurontin - PO 200 mg TID [facility] Administration Guaifenesin/Codeine Phosphate 10 ml 02/21/17 11:54 02/22/17 08:17 Robitussin Ac - PO 10 ml Q8H PRN Administration COUGH Azithromycin 500 mg/ Dextrose 250 mls @ 250 mls/hr 02/18/17 16:00 02/22/17 09 :55 IVPB 250 mls/hr DAILY [facility] Administration Lactobacillus Acidophilus 1 tab 02/19/17 14:30 02/22/17 09:56 Bacid - PO 1 tab DAILY [facility] Administration Methylprednisolone Sodium Succinate 40 mg 02/21/17 18:00 02/22/17 09:50 Solu-Medrol - IVPUSH 40 mg Q8H-IV [facility] Administration Ondansetron HCl 4 mg 02/18/17 15:47 02/21/17 03:38 Zofran Injection IVPUSH 4 mg Q6H PRN Administration NAUSEA Polyethylene Glycol 17 gm 02/19/17 10:00 02/21/17 11:45 Miralax (For Daily Use) - PO 17 gm DAILY [facility] Administration Roflumilast 500 mcg 02/19/17 10:00 02/22/17 09:54 Daliresp - PO 500 mcg DAILY [facility] Administration Simethicone 80 mg 02/21/17 11:56 Mylicon - PO Q4H PRN GAS Tiotropium [place] 1 puff 02/19/17 10:00 02/22/17 09:55 Spiriva - IH 1 inh DAILY [facility] Administration Zolpidem Tartrate 10 mg 02/20/17 23:20 02/21/17 22:07 Ambien - PO 10 mg HS PRN Administration Last Vital Signs Temp Pulse Resp BP Pulse Ox 98.0 F 80 22 150/68 94 L 02/22/17 06:00 02/22/17 09:00 02/22/17 09:00 02/22/17 09:00 02/21/17 21:00 General NAD CV S1 S2 RRR no murmur/rub/gallop Lungs coarse breath sounds. no wheezing or crackles Abdomen soft NT/ND Extremities no pedal edema CBCD WBC 14.7 K/mm3 (4.0-10.0) H 02/22/17 07:30 RBC 4.29 M/mm3 (4.00-5.60) 02/22/17 07:30 Hgb 13.4 GM/dL (11.7-16.9) 02/22/17 07:30 Hct 41.3 % (35.4-49) 02/22/17 07:30 MCV 96.1 fl (80-96) H 02/22/17 07:30 MCHC 32.6 g/dl (32.0-35.9) 02/22/17 07:30 RDW 13.7 % (11.9-15.9) 02/22/17 07:30 Plt Count 332 K/MM3 (134-434) 02/22/17 07:30 MPV 7.2 fl (7.5-11.1) L 02/22/17 07:30 CMP Sodium 140 mmol/L (136-145) 02/22/17 07:30 Potassium 4.4 mmol/L (3.5-5.1) 02/22/17 07:30 Chloride 106 mmol/L (98-107) 02/22/17 07:30 Carbon Dioxide 28 mmol/L (21-32) 02/22/17 07:30 Anion Gap 6 (8-16) L 02/22/17 07:30 BUN 23 mg/dL (7-18) H 02/22/17 07:30 Creatinine 0.9 mg/dL (0.7-1.3) 02/22/17 07:30 Creat Clearance w eGFR > 60 (>60) 02/18/17 13:55 Calcium 8.9 mg/dL (8.5-10.1) 02/22/17 07:30 Total Bilirubin 0.9 mg/dL (0.2-1.0) D 02/18/17 13:55 AST 13 U/L (15-37) L 02/18/17 13:55 ALT 14 U/L (12-78) D 02/18/17 13:55 Alkaline Phosphatase 82 U/L (45-117) D 02/18/17 13:55 Total Protein 6.5 g/dl (6.4-8.2) D 02/18/17 13:55 Albumin 3.0 g/dl (3.4-5.0) L D 02/18/17 13:55 Microbiology 02/18/17 13:43 Blood Culture - Preliminary Blood - Peripheral Venous NO GROWTH OBTAINED AFTER 72 HOURS, INCUBATION TO CONTINUE FOR 2 DAYS. 02/18/17 13:43 Blood Culture - Preliminary Blood - Peripheral Venous NO GROWTH OBTAINED AFTER 72 HOURS, INCUBATION TO CONTINUE FOR 2 DAYS. A/P 67yo F with PMH COPD and dyslipidemia presented with Acute COPD exacerbation 1. Acute COPD exacerbation- continues to have cough. saturating 97% on 1L. some improvement with robitussin AC. will start mucinex and chest PT to assist with cough. cont current steroid treatment 40mg Q8H, nebs RTC and prn. inhalers, pulmonary on board 2. LEukocytosis-slight uptrend likely due to steroids. will monitor for now 3. PNA- infiltrates clear of CT. afebrile. leukocytosis likely due to steroids. ceftriaxone d/c yesterday. on azithromycin day 5. will d/c after todays dose 4. Nausea and vomiting- now resolved 5. DVT ppx- lovenox Visit type - Emergency Visit Emergency Visit: Yes ED Registration Date: 02/18/17 Care time: The patient presented to the Emergency Department on the above date and was hospitalized for further evaluation of their emergent condition. - New Patient This patient is new to me today: Yes Date on this admission: 02/22/17 - Critical Care Critical Care patient: No - Discharge Referral Referred to [facility] Med P.C.: No
[2017-02-22] MEDS ORDERED: guaiFENesin 600 MG TABLET.ER (FP) PO SCH (11:15)
--- NOTE | 2017-02-22 12:40 | PN ---
Progress Note, Physician History of Present Illness: PULMONARY ALER5T,LESS DYSPNEIC,+ COUGH - Current Medication List Current Medications: Active Medications Acetaminophen (Tylenol -) 650 mg PO Q4H PRN PRN Reason: FEVER OR PAIN Albuterol Sulfate (Ventolin 0.083% Nebulizer Soln -) 1 amp NEB Q4H PRN PRN Reason: SHORT OF BREATH/WHEEZING Albuterol/Ipratropium (Duoneb -) 1 amp NEB QIDR [facility] Last Admin: 02/22/17 11:20 Dose: 1 amp Aspirin (Ecotrin -) 81 mg PO DAILY [facility] Last Admin: 02/22/17 09:57 Dose: 81 mg Benzocaine/Menthol (Cepacol Lozenge -) 1 each MM PRN PRN PRN Reason: SORE THROAT Budesonide/Formoterol Fumarate (Symbicort 160/4.5mcg -) 2 puff IH BID [facility] Last Admin: 02/22/17 09:54 Dose: 2 puff Docusate Sodium (Colace -) 100 mg PO BID PRN PRN Reason: CONSTIPATION Enoxaparin Sodium (Lovenox -) 40 mg SQ DAILY [facility] Last Admin: 02/22/17 09:56 Dose: 40 mg Gabapentin (Neurontin -) 200 mg PO TID [facility] Last Admin: 02/22/17 06:01 Dose: 200 mg Guaifenesin (Mucinex -) 600 mg PO BID [facility] Guaifenesin/Codeine Phosphate (Robitussin Ac -) 10 ml PO Q8H PRN PRN Reason: COUGH Last Admin: 02/22/17 08:17 Dose: 10 ml Lactobacillus Acidophilus (Bacid -) 1 tab PO DAILY [facility] Last Admin: 02/22/17 09:56 Dose: 1 tab Methylprednisolone Sodium Succinate (Solu-Medrol -) 40 mg IVPUSH Q8H-IV [facility] Last Admin: 02/22/17 09:50 Dose: 40 mg Ondansetron HCl (Zofran Injection) 4 mg IVPUSH Q6H PRN PRN Reason: NAUSEA Last Admin: 02/21/17 03:38 Dose: 4 mg Polyethylene Glycol (Miralax (For Daily Use) -) 17 gm PO DAILY [facility] Last Admin: 02/21/17 11:45 Dose: 17 gm Roflumilast (Daliresp -) 500 mcg PO DAILY [facility] Last Admin: 02/22/17 09:54 Dose: 500 mcg Simethicone (Mylicon -) 80 mg PO Q4H PRN PRN Reason: GAS Tiotropium [place] (Spiriva -) 1 puff IH DAILY [facility] Last Admin: 02/22/17 09:55 Dose: 1 inh Zolpidem Tartrate (Ambien -) 10 mg PO HS PRN Last Admin: 02/21/17 22:07 Dose: 10 mg - Objective Vital Signs: Vital Signs Temperature 98.0 F 02/22/17 06:00 Pulse Rate 80 02/22/17 09:00 Respiratory Rate 22 02/22/17 09:00 Blood Pressure 150/68 02/22/17 09:00 O2 Sat by Pulse Oximetry (%) 94 L 02/21/17 21:00 Constitutional: Yes: Well Nourished, Calm Eyes: Yes: WNL HENT: Yes: WNL Neck: Yes: WNL Cardiovascular: Yes: Regular Rate and Rhythm, S1, S2 Respiratory: Yes: Rhonchi (CRACKLES R BASE) Gastrointestinal: Yes: Normal Bowel Sounds, Soft Extremities: Yes: WNL Edema: No Labs: CBC, BMP 02/22/17 07:30 02/22/17 07:30 Problem List - Problems (1) Pneumonia Code(s): J18.9 - PNEUMONIA, UNSPECIFIED ORGANISM (2) Intractable nausea and vomiting Code(s): R11.2 - NAUSEA WITH VOMITING, UNSPECIFIED Qualifiers: Vomiting type: unspecified Qualified Code(s): R11.2 - Nausea with vomiting , unspecified (3) Hyperlipidemia Code(s): E78.5 - HYPERLIPIDEMIA, UNSPECIFIED (4) Acute exacerbation of chronic obstructive pulmonary disease Code(s): J44.1 - CHRONIC OBSTRUCTIVE PULMONARY DISEASE W (ACUTE) EXACERBATION Assessment/Plan IMP COPD EXAERBATION RLL PNEUMONIA N/V PLAN STEROIDS SAME DOSE INHALED BRONCHODILATORS O2 ABX ANTI-TUSSIVES DR BROCK Problem List - Problems (1) Pneumonia Code(s): J18.9 - PNEUMONIA, UNSPECIFIED ORGANISM (2) Intractable nausea and vomiting Code(s): R11.2 - NAUSEA WITH VOMITING, UNSPECIFIED Qualifiers: Vomiting type: unspecified Qualified Code(s): R11.2 - Nausea with vomiting , unspecified (3) Hyperlipidemia Code(s): E78.5 - HYPERLIPIDEMIA, UNSPECIFIED (4) Acute exacerbation of chronic obstructive pulmonary disease Code(s): J44.1 - CHRONIC OBSTRUCTIVE PULMONARY DISEASE W (ACUTE) EXACERBATION
[2017-02-22] MEDS: POLYETHYLENE GLYCOL 3350 119 GM BTL PO SCH (13:21)
[2017-02-22] MEDS ORDERED: PT OWN MED DRAWER 7, Y5N ONE (21:40)
[2017-02-22] MEDS: ZOLPIDEM TARTRATE 5 MG TABLET PO PRN (22:14)
[2017-02-23] MEDS: methylPREDNISolone NA SUCC 40 MG/1 ML VIAL IVPUSH SCH ×3 (02:39→18:25)
[2017-02-23] MEDS: ALBUTEROL SO4 2.5/IPRATROPIUM 0.5 INH SOL 3 ML VIAL.NEB. NEB SCH ×4 (06:15→23:36)
[2017-02-23] MEDS: guaiFENesin/CODEINE 10 ML UNIT-DOSE CUPS PO PRN ×3 (06:23→18:55)
[2017-02-23] MEDS: GABAPENTIN 100 MG CAPSULE (FP) PO SCH ×3 (06:23→22:02)
[2017-02-23] MEDS ORDERED: PT OWN MED DRAWER 7, Y5N ONE (09:38)
[2017-02-23] MEDS: ENOXAPARIN NA (PORCINE) 40 MG/0.4 ML DISP.SYRIN SQ SCH (09:40)
[2017-02-23] MEDS: TIOTROPIUM BROMIDE 18 MCG/INH (DEVICE W/ 5 CAPSULES) IH SCH (09:40)
[2017-02-23] MEDS: LACTOBACILLUS ACIDOPHILUS 1 EACH TAB (FP) PO SCH (09:42)
[2017-02-23] MEDS: ROFLUMILAST 500 MCG TABLET PO SCH (09:42)
[2017-02-23] MEDS: ASPIRIN COATED 81 MG TABLET.EC PO SCH (09:42)
--- NOTE | 2017-02-23 12:40 | PN ---
Progress Note, Physician History of Present Illness: PULMONARY ALERT,FEELING BETTER,LESS DYSPNEIC,LESS COUGH - Current Medication List Current Medications: Active Medications Acetaminophen (Tylenol -) 650 mg PO Q4H PRN PRN Reason: FEVER OR PAIN Albuterol Sulfate (Ventolin 0.083% Nebulizer Soln -) 1 amp NEB Q4H PRN PRN Reason: SHORT OF BREATH/WHEEZING Albuterol/Ipratropium (Duoneb -) 1 amp NEB QIDR [facility] Last Admin: 02/23/17 11:21 Dose: 1 amp Aspirin (Ecotrin -) 81 mg PO DAILY [facility] Last Admin: 02/23/17 09:42 Dose: 81 mg Benzocaine/Menthol (Cepacol Lozenge -) 1 each MM PRN PRN PRN Reason: SORE THROAT Budesonide/Formoterol Fumarate (Symbicort 160/4.5mcg -) 2 puff IH BID [facility] Last Admin: 02/22/17 22:15 Dose: 2 puff Docusate Sodium (Colace -) 100 mg PO BID PRN PRN Reason: CONSTIPATION Enoxaparin Sodium (Lovenox -) 40 mg SQ DAILY [facility] Last Admin: 02/23/17 09:40 Dose: 40 mg Gabapentin (Neurontin -) 200 mg PO TID [facility] Last Admin: 02/23/17 06:23 Dose: 200 mg Guaifenesin/Codeine Phosphate (Robitussin Ac -) 10 ml PO Q6H PRN PRN Reason: COUGH Last Admin: 02/23/17 06:23 Dose: 10 ml Lactobacillus Acidophilus (Bacid -) 1 tab PO DAILY [facility] Last Admin: 02/23/17 09:42 Dose: 1 tab Methylprednisolone Sodium Succinate (Solu-Medrol -) 40 mg IVPUSH Q8H-IV [facility] Last Admin: 02/23/17 09:42 Dose: 40 mg Ondansetron HCl (Zofran Injection) 4 mg IVPUSH Q6H PRN PRN Reason: NAUSEA Last Admin: 02/21/17 03:38 Dose: 4 mg Polyethylene Glycol (Miralax (For Daily Use) -) 17 gm PO DAILY [facility] Last Admin: 02/22/17 13:21 Dose: 17 gm Roflumilast (Daliresp -) 500 mcg PO DAILY [facility] Last Admin: 02/23/17 09:42 Dose: 500 mcg Simethicone (Mylicon -) 80 mg PO Q4H PRN PRN Reason: GAS Tiotropium [place] (Spiriva -) 1 puff IH DAILY [facility] Last Admin: 02/23/17 09:40 Dose: 1 inh Zolpidem Tartrate (Ambien -) 10 mg PO HS PRN Last Admin: 02/22/17 22:14 Dose: 10 mg - Objective Vital Signs: Vital Signs Temperature 97.5 F L 02/22/17 21:00 Pulse Rate 70 02/22/17 21:00 Respiratory Rate 18 02/22/17 21:00 Blood Pressure 132/72 02/22/17 21:00 O2 Sat by Pulse Oximetry (%) 97 02/22/17 21:00 Constitutional: Yes: Well Nourished, Calm Eyes: Yes: WNL HENT: Yes: WNL Neck: Yes: WNL Cardiovascular: Yes: Regular Rate and Rhythm, S1, S2 Respiratory: Yes: Rales (FEW CRACKLES R BASE) Gastrointestinal: Yes: Normal Bowel Sounds, Soft Extremities: Yes: WNL Edema: No Labs: CBC, BMP 02/22/17 07:30 02/22/17 07:30 Problem List - Problems (1) Pneumonia Code(s): J18.9 - PNEUMONIA, UNSPECIFIED ORGANISM (2) Intractable nausea and vomiting Code(s): R11.2 - NAUSEA WITH VOMITING, UNSPECIFIED Qualifiers: Vomiting type: unspecified Qualified Code(s): R11.2 - Nausea with vomiting , unspecified (3) Hyperlipidemia Code(s): E78.5 - HYPERLIPIDEMIA, UNSPECIFIED (4) Acute exacerbation of chronic obstructive pulmonary disease Code(s): J44.1 - CHRONIC OBSTRUCTIVE PULMONARY DISEASE W (ACUTE) EXACERBATION Assessment/Plan IMP COPD EXAERBATION RLL PNEUMONIA N/V PLAN STEROIDS SAME DOSE INHALED BRONCHODILATORS O2 ABX ANTI-TUSSIVES DR BROCK Problem List - Problems (1) Pneumonia Code(s): J18.9 - PNEUMONIA, UNSPECIFIED ORGANISM (2) Intractable nausea and vomiting Code(s): R11.2 - NAUSEA WITH VOMITING, UNSPECIFIED Qualifiers: Vomiting type: unspecified Qualified Code(s): R11.2 - Nausea with vomiting , unspecified (3) Hyperlipidemia Code(s): E78.5 - HYPERLIPIDEMIA, UNSPECIFIED (4) Acute exacerbation of chronic obstructive pulmonary disease Code(s): J44.1 - CHRONIC OBSTRUCTIVE PULMONARY DISEASE W (ACUTE) EXACERBATION
[2017-02-23] MEDS: BUDESONIDE/FORMETEROL FUMARATE 160/4.5 mcg INHALER IH SCH ×2 (13:08→22:03)
[2017-02-23] MEDS: POLYETHYLENE GLYCOL 3350 119 GM BTL PO SCH (15:20)
[2017-02-23] MEDS: AZITHROMYCIN 250 MG TABLET PO SCH (15:20)
--- NOTE | 2017-02-23 15:33 | PN ---
Physical Exam: SUBJECTIVE: Patient seen and examined. He still has chest tightness and cough. No fever. He denies chest pain, abdominal pain, n/v. OBJECTIVE: Vital Signs Period Temp Pulse Resp BP Sys/Spence Pulse Ox Last 24 Hr 97.2 F-97.5 F 67-76 18-20 114-132/66-77 95-97 PE Neuro: alert, awake, cn 2-12intact Pulm: bases diminished, crackles, + harsh cough, + NC CV: s1 s2 rrr no mrg Abd: s nt nd + bs Ext: warm , no le edema Active Medications Generic Name Dose Route Start Last Admin Trade Name Freq PRN Reason Stop Dose Admin Acetaminophen 650 mg 02/18/17 15:47 Tylenol - PO Q4H PRN FEVER OR PAIN Albuterol Sulfate 1 amp 02/18/17 15:47 Ventolin 0.083% Nebulizer Soln - NEB Q4H PRN SHORT OF BREATH/WHEEZING Albuterol/Ipratropium 1 amp 02/18/17 18:00 02/23/17 11:21 Duoneb - NEB 1 amp QIDR [facility] Administration Aspirin 81 mg 02/19/17 10:00 02/23/17 09:42 Ecotrin - PO 81 mg DAILY [facility] Administration Azithromycin 500 mg 02/23/17 12:45 02/23/17 15:20 Zithromax - PO 500 mg DAILY [facility] Administration Benzocaine/Menthol 1 each 02/20/17 18:54 Cepacol Lozenge - MM PRN PRN SORE THROAT Budesonide/Formoterol Fumarate 2 puff 02/19/17 22:00 02/23/17 13:08 Symbicort 160/4.5mcg - IH 2 puff BID [facility] Administration Docusate Sodium 100 mg 02/18/17 15:47 Colace - PO BID PRN CONSTIP[facility] Enoxaparin Sodium 40 mg 02/19/17 10:00 02/23/17 09:40 Lovenox - SQ 40 mg DAILY [facility]A Administration Gabapentin 200 mg 02/18/17 22:00 02/23/17 13:07 Neurontin - PO 200 mg TID FRIEDA Administration Guaifenesin/Codeine Phosphate 10 ml 02/22/17 14:09 02/23/17 13:07 Robitussin Ac - PO 10 ml Q6H PRN Administration COUGH Lactobacillus Acidophilus 1 tab 02/19/17 14:30 02/23/17 09:42 Bacid - PO 1 tab DAILY FRIEDA Administration Methylprednisolone Sodium Succinate 40 mg 02/21/17 18:00 02/23/17 09:42 Solu-Medrol - IVPUSH 40 mg Q8H-IV FRIEDA Administration Polyethylene Glycol 17 gm 02/19/17 10:00 02/23/17 15:20 Miralax (For Daily Use) - PO 17 gm DAILY FRIEDA Administration Roflumilast 500 mcg 02/19/17 10:00 02/23/17 09:42 Daliresp - PO 500 mcg DAILY FRIEDA Administration Simethicone 80 mg 02/21/17 11:56 Mylicon - PO Q4H PRN GAS Tiotropium [place] 1 puff 02/19/17 10:00 02/23/17 09:40 Spiriva - IH 1 inh DAILY FRIEDA Administration Zolpidem Tartrate 10 mg 02/20/17 23:20 02/22/17 22:14 Ambien - PO 10 mg HS PRN Administration Assessment: 67 year old female with PMH COPD and dyslipidemia presented with Acute COPD exacerbation Plan: 1. Acute COPD exacerbation - Exacerbation continues - Continue solumedrol 40mg q8hr - Continue Robitussin prn, if no improvement consider switching to mucinex - Continue zithromax (day 6) 2. RLL pna - Will restart ceftriaxone for addition 2 days - Continue zithromax for 2 days - D/w Pulm 3. Leukocytosis - Decreasing 4. Nausea and vomiting - Resolved 5. DVT ppx - Lovenox sq Visit type - Emergency Visit Emergency Visit: Yes ED Registration Date: 02/18/17 Care time: The patient presented to the Emergency Department on the above date and was hospitalized for further evaluation of their emergent condition. - New Patient This patient is new to me today: Yes Date on this admission: 02/23/17 - Critical Care Critical Care patient: No
[2017-02-23] MEDS: CEFTRIAXONE 1 G/50 ML PREMIX 50 ML IVPB SCH (18:26)
[2017-02-23] MEDS: ZOLPIDEM TARTRATE 5 MG TABLET PO PRN (22:02)
[2017-02-24] MEDS: guaiFENesin/CODEINE 10 ML UNIT-DOSE CUPS PO PRN ×4 (00:04→22:25)
[2017-02-24] MEDS: methylPREDNISolone NA SUCC 40 MG/1 ML VIAL IVPUSH SCH ×3 (02:16→18:30)
[2017-02-24] MEDS: ALBUTEROL SO4 2.5/IPRATROPIUM 0.5 INH SOL 3 ML VIAL.NEB. NEB SCH ×4 (06:16→22:29)
[2017-02-24] MEDS: GABAPENTIN 100 MG CAPSULE (FP) PO SCH ×3 (06:22→22:24)
[2017-02-24 08:09] LABS: HEMATOCRIT 42.6 % (35.4-49); HEMOGLOBIN 13.7 GM/dL (11.7-16.9); MCH 31.2 pg (25.7-33.7); MCHC 32.2 g/dl (32.0-35.9); MEAN CELL VOLUME 97.1 fl (80-96); MEAN PLT VOLUME 7.3 fl (7.5-11.1); PLATELET COUNT 354 K/MM3 (134-434); RBC 4.39 M/mm3 (4.00-5.60); RDW 13.5 % (11.9-15.9)
[2017-02-24 08:46] LABS: ANION GAP 7 (8-16); BLOOD UREA NITROGEN 21 mg/dL (7-18); CALCIUM 8.9 mg/dL (8.5-10.1); CHLORIDE 107 mmol/L (98-107); CO2 28 mmol/L (21-32); CREATININE 0.8 mg/dL (0.7-1.3); GLUCOSE,RANDOM 115 mg/dL (74-106); POTASSIUM 4.5 mmol/L (3.5-5.1); SODIUM 142 mmol/L (136-145)
[2017-02-24] MEDS ORDERED: PT OWN MED DRAWER 7, Y5N ONE (11:06)
[2017-02-24] MEDS: ENOXAPARIN NA (PORCINE) 40 MG/0.4 ML DISP.SYRIN SQ SCH (11:26)
[2017-02-24] MEDS: CEFTRIAXONE 1 G/50 ML PREMIX 50 ML IVPB SCH (11:26)
[2017-02-24] MEDS: LACTOBACILLUS ACIDOPHILUS 1 EACH TAB (FP) PO SCH (11:26)
[2017-02-24] MEDS: ROFLUMILAST 500 MCG TABLET PO SCH (11:26)
[2017-02-24] MEDS: ASPIRIN COATED 81 MG TABLET.EC PO SCH (11:27)
[2017-02-24] MEDS: AZITHROMYCIN 250 MG TABLET PO SCH (11:27)
[2017-02-24] MEDS: TIOTROPIUM BROMIDE 18 MCG/INH (DEVICE W/ 5 CAPSULES) IH SCH (11:32)
[2017-02-24] MEDS: BUDESONIDE/FORMETEROL FUMARATE 160/4.5 mcg INHALER IH SCH ×2 (11:32→22:24)
[2017-02-24] MEDS: POLYETHYLENE GLYCOL 3350 119 GM BTL PO SCH (11:33)
--- NOTE | 2017-02-24 12:18 | PN ---
Progress Note, Physician Chief Complaint: Mr Harris says he is feeling much better. Complains of itching in both arms. Still with cough but much improved. Denies cp, sob, n/v. - Current Medication List Current Medications: Active Medications Acetaminophen (Tylenol -) 650 mg PO Q4H PRN PRN Reason: FEVER OR PAIN Albuterol Sulfate (Ventolin 0.083% Nebulizer Soln -) 1 amp NEB Q4H PRN PRN Reason: SHORT OF BREATH/WHEEZING Albuterol/Ipratropium (Duoneb -) 1 amp NEB RQID [facility] Aspirin (Ecotrin -) 81 mg PO DAILY [facility] Last Admin: 02/24/17 11:27 Dose: 81 mg Azithromycin (Zithromax -) 500 mg PO DAILY [facility] Last Admin: 02/24/17 11:27 Dose: 500 mg Benzocaine/Menthol (Cepacol Lozenge -) 1 each MM PRN PRN PRN Reason: SORE THROAT Budesonide/Formoterol Fumarate (Symbicort 160/4.5mcg -) 2 puff IH BID [facility] Last Admin: 02/24/17 11:32 Dose: 2 puff Diphenhydramine HCl (Benadryl Injection -) 12.5 mg IVPUSH Q4H PRN PRN Reason: FOR ITCHING Docusate Sodium (Colace -) 100 mg PO BID PRN PRN Reason: CONSTIPATION Enoxaparin Sodium (Lovenox -) 40 mg SQ DAILY [facility] Last Admin: 02/24/17 11:26 Dose: 40 mg Gabapentin (Neurontin -) 200 mg PO TID [facility] Last Admin: 02/24/17 06:22 Dose: 200 mg Guaifenesin/Codeine Phosphate (Robitussin Ac -) 10 ml PO Q6H PRN PRN Reason: COUGH Last Admin: 02/24/17 06:22 Dose: 10 ml CEFTRIAXONE 1 G/50 ML PREMIX (Ceftriaxone 1 Gm-D5w Bag) 50 mls @ 100 mls/hr IVPB DAILY [facility] Stop: 02/25/17 15:44 Last Admin: 02/24/17 11:26 Dose: 100 mls/hr Lactobacillus Acidophilus (Bacid -) 1 tab PO DAILY [facility] Last Admin: 02/24/17 11:26 Dose: 1 tab Methylprednisolone Sodium Succinate (Solu-Medrol -) 40 mg IVPUSH Q8H-IV [facility] Last Admin: 02/24/17 02:16 Dose: 40 mg Polyethylene Glycol (Miralax (For Daily Use) -) 17 gm PO DAILY [facility] Last Admin: 02/24/17 11:33 Dose: 17 gm Roflumilast (Daliresp -) 500 mcg PO DAILY [facility] Last Admin: 02/24/17 11:26 Dose: 500 mcg Simethicone (Mylicon -) 80 mg PO Q4H PRN PRN Reason: GAS Tiotropium [place] (Spiriva -) 1 puff IH DAILY [facility] Last Admin: 02/24/17 11:32 Dose: 1 inh Zolpidem Tartrate (Ambien -) 10 mg PO HS PRN Last Admin: 02/23/17 22:02 Dose: 10 mg - Objective Vital Signs: Vital Signs Temperature 36.3 C L 02/24/17 06:00 Pulse Rate 76 02/24/17 09:41 Respiratory Rate 18 02/24/17 06:00 Blood Pressure 123/71 02/24/17 06:00 O2 Sat by Pulse Oximetry (%) 96 02/24/17 09:41 Constitutional: Yes: Well Nourished, No Distress, Calm Cardiovascular: Yes: Regular Rate and Rhythm. No: Gallop, Murmur, Rub Respiratory: Yes: Regular, CTA Bilaterally. No: Rales, Rhonchi, Wheezes Gastrointestinal: Yes: Normal Bowel Sounds, Soft. No: Distention, Tenderness Extremities: Yes: WNL Edema: No Labs: CBC, BMP 02/24/17 07:16 02/24/17 07:16 Problem List - Problems (1) Acute exacerbation of chronic obstructive pulmonary disease Code(s): J44.1 - CHRONIC OBSTRUCTIVE PULMONARY DISEASE W (ACUTE) EXACERBATION (2) Intractable nausea and vomiting Code(s): R11.2 - NAUSEA WITH VOMITING, UNSPECIFIED Qualifiers: Vomiting type: unspecified Qualified Code(s): R11.2 - Nausea with vomiting , unspecified (3) Pneumonia Code(s): J18.9 - PNEUMONIA, UNSPECIFIED ORGANISM Assessment/Plan (1) Acute exacerbation of chronic obstructive pulmonary disease Assessment/Plan: -much improved -continue current regimen -possible discharge tomorrow, will change to prednisone for taper Code(s): J44.1 - CHRONIC OBSTRUCTIVE PULMONARY DISEASE W (ACUTE) EXACERBATION (2) Intractable nausea and vomiting Assessment/Plan: -resolved Code(s): R11.2 - NAUSEA WITH VOMITING, UNSPECIFIED Qualifiers: Vomiting type: unspecified Qualified Code(s): R11.2 - Nausea with vomiting , unspecified (3) Pneumonia -continue rocephin and zithromax -last dose tomorrow
[2017-02-24 12:50] LABS: PLATELET ESTIMATE ADEQUATE
--- NOTE | 2017-02-24 13:34 | PN ---
Progress Note, Physician History of Present Illness: PULMONARY ALERT,FEELING BETTER,LESS COUGH,SOB IMPROVING - Current Medication List Current Medications: Active Medications Acetaminophen (Tylenol -) 650 mg PO Q4H PRN PRN Reason: FEVER OR PAIN Albuterol Sulfate (Ventolin 0.083% Nebulizer Soln -) 1 amp NEB Q4H PRN PRN Reason: SHORT OF BREATH/WHEEZING Albuterol/Ipratropium (Duoneb -) 1 amp NEB RQID [facility] Aspirin (Ecotrin -) 81 mg PO DAILY [facility] Last Admin: 02/24/17 11:27 Dose: 81 mg Azithromycin (Zithromax -) 500 mg PO DAILY [facility] Last Admin: 02/24/17 11:27 Dose: 500 mg Benzocaine/Menthol (Cepacol Lozenge -) 1 each MM PRN PRN PRN Reason: SORE THROAT Budesonide/Formoterol Fumarate (Symbicort 160/4.5mcg -) 2 puff IH BID [facility] Last Admin: 02/24/17 11:32 Dose: 2 puff Diphenhydramine HCl (Benadryl Injection -) 12.5 mg IVPUSH Q4H PRN PRN Reason: FOR ITCHING Last Admin: 02/24/17 12:27 Dose: 12.5 mg Docusate Sodium (Colace -) 100 mg PO BID PRN PRN Reason: CONSTIPATION Enoxaparin Sodium (Lovenox -) 40 mg SQ DAILY [facility] Last Admin: 02/24/17 11:26 Dose: 40 mg Gabapentin (Neurontin -) 200 mg PO TID [facility] Last Admin: 02/24/17 06:22 Dose: 200 mg Guaifenesin/Codeine Phosphate (Robitussin Ac -) 10 ml PO Q6H PRN PRN Reason: COUGH Last Admin: 02/24/17 12:32 Dose: 10 ml CEFTRIAXONE 1 G/50 ML PREMIX (Ceftriaxone 1 Gm-D5w Bag) 50 mls @ 100 mls/hr IVPB DAILY [facility] Stop: 02/25/17 15:44 Last Admin: 02/24/17 11:26 Dose: 100 mls/hr Lactobacillus Acidophilus (Bacid -) 1 tab PO DAILY [facility] Last Admin: 02/24/17 11:26 Dose: 1 tab Methylprednisolone Sodium Succinate (Solu-Medrol -) 40 mg IVPUSH Q8H-IV [facility] Last Admin: 02/24/17 12:25 Dose: 40 mg Polyethylene Glycol (Miralax (For Daily Use) -) 17 gm PO DAILY [facility] Last Admin: 02/24/17 11:33 Dose: 17 gm Roflumilast (Daliresp -) 500 mcg PO DAILY [facility] Last Admin: 02/24/17 11:26 Dose: 500 mcg Simethicone (Mylicon -) 80 mg PO Q4H PRN PRN Reason: GAS Tiotropium [place] (Spiriva -) 1 puff IH DAILY [facility] Last Admin: 02/24/17 11:32 Dose: 1 inh Zolpidem Tartrate (Ambien -) 10 mg PO HS PRN Last Admin: 02/23/17 22:02 Dose: 10 mg - Objective Vital Signs: Vital Signs Temperature 98.0 F 02/24/17 12:57 Pulse Rate 70 02/24/17 12:57 Respiratory Rate 18 02/24/17 12:57 Blood Pressure 118/66 02/24/17 12:57 O2 Sat by Pulse Oximetry (%) 96 02/24/17 09:41 Constitutional: Yes: Well Nourished, Calm Eyes: Yes: WNL HENT: Yes: WNL Neck: Yes: WNL Cardiovascular: Yes: Regular Rate and Rhythm, S1, S2 Respiratory: Yes: Rales (FEW CRACKLES R BASE) Gastrointestinal: Yes: Normal Bowel Sounds, Soft Extremities: Yes: WNL Edema: No Labs: CBC, BMP 02/24/17 07:16 02/24/17 07:16 Problem List - Problems (1) Pneumonia Code(s): J18.9 - PNEUMONIA, UNSPECIFIED ORGANISM (2) Intractable nausea and vomiting Code(s): R11.2 - NAUSEA WITH VOMITING, UNSPECIFIED Qualifiers: Vomiting type: unspecified Qualified Code(s): R11.2 - Nausea with vomiting , unspecified (3) Hyperlipidemia Code(s): E78.5 - HYPERLIPIDEMIA, UNSPECIFIED (4) Acute exacerbation of chronic obstructive pulmonary disease Code(s): J44.1 - CHRONIC OBSTRUCTIVE PULMONARY DISEASE W (ACUTE) EXACERBATION Assessment/Plan IMP COPD EXAERBATION RLL PNEUMONIA N/V PLAN STEROIDS SAME DOSE,START PO IN AM IF CONTINUES TO IMPROVE INHALED BRONCHODILATORS O2 ABX ANTI-TUSSIVES DR BRILL Problem List - Problems (1) Pneumonia Code(s): J18.9 - PNEUMONIA, UNSPECIFIED ORGANISM (2) Intractable nausea and vomiting Code(s): R11.2 - NAUSEA WITH VOMITING, UNSPECIFIED Qualifiers: Vomiting type: unspecified Qualified Code(s): R11.2 - Nausea with vomiting , unspecified (3) Hyperlipidemia Code(s): E78.5 - HYPERLIPIDEMIA, UNSPECIFIED (4) Acute exacerbation of chronic obstructive pulmonary disease Code(s): J44.1 - CHRONIC OBSTRUCTIVE PULMONARY DISEASE W (ACUTE) EXACERBATION
[2017-02-24] MEDS: ZOLPIDEM TARTRATE 5 MG TABLET PO PRN (22:25)
[2017-02-25] MEDS: methylPREDNISolone NA SUCC 40 MG/1 ML VIAL IVPUSH SCH ×3 (01:50→18:58)
[2017-02-25] MEDS: GABAPENTIN 100 MG CAPSULE (FP) PO SCH ×3 (06:12→21:38)
[2017-02-25] MEDS: guaiFENesin/CODEINE 10 ML UNIT-DOSE CUPS PO PRN ×3 (06:17→19:03)
[2017-02-25] MEDS: ALBUTEROL SO4 2.5/IPRATROPIUM 0.5 INH SOL 3 ML VIAL.NEB. NEB SCH ×4 (07:01→20:02)
[2017-02-25 08:32] LABS: ANION GAP 8 (8-16); BLOOD UREA NITROGEN 23 mg/dL (7-18); CALCIUM 8.9 mg/dL (8.5-10.1); CHLORIDE 105 mmol/L (98-107); CO2 27 mmol/L (21-32); CREATININE 0.9 mg/dL (0.7-1.3); GLUCOSE,RANDOM 123 mg/dL (74-106); MAGNESIUM 2.5 mg/dL (1.8-2.4); PHOSPHOROUS 3.9 mg/dL (2.5-4.9); POTASSIUM 4.4 mmol/L (3.5-5.1); SODIUM 140 mmol/L (136-145)
[2017-02-25 08:36] LABS: HEMATOCRIT 42.6 % (35.4-49); HEMOGLOBIN 13.8 GM/dL (11.7-16.9); MCH 31.3 pg (25.7-33.7); MCHC 32.3 g/dl (32.0-35.9); MEAN PLT VOLUME 7.3 fl (7.5-11.1); PLATELET COUNT 368 K/MM3 (134-434); RBC 4.39 M/mm3 (4.00-5.60); RDW 13.6 % (11.9-15.9); WHITE BLOOD COUNT 18.9 K/mm3 (4.0-10.0)
[2017-02-25] MEDS: CEFTRIAXONE 1 G/50 ML PREMIX 50 ML IVPB SCH (11:19)
[2017-02-25] MEDS: ASPIRIN COATED 81 MG TABLET.EC PO SCH (11:22)
[2017-02-25] MEDS: ENOXAPARIN NA (PORCINE) 40 MG/0.4 ML DISP.SYRIN SQ SCH (11:22)
[2017-02-25] MEDS: AZITHROMYCIN 250 MG TABLET PO SCH (11:22)
[2017-02-25] MEDS: POLYETHYLENE GLYCOL 3350 119 GM BTL PO SCH (11:23)
[2017-02-25] MEDS: LACTOBACILLUS ACIDOPHILUS 1 EACH TAB (FP) PO SCH (11:24)
[2017-02-25] MEDS ORDERED: PT OWN MED DRAWER 7, Y5N ONE ×2 (11:26→14:57)
[2017-02-25] MEDS: TIOTROPIUM BROMIDE 18 MCG/INH (DEVICE W/ 5 CAPSULES) IH SCH (11:27)
[2017-02-25] MEDS: BUDESONIDE/FORMETEROL FUMARATE 160/4.5 mcg INHALER IH SCH ×2 (11:28→21:39)
[2017-02-25] MEDS: ROFLUMILAST 500 MCG TABLET PO SCH (11:29)
--- NOTE | 2017-02-25 12:00 | PN ---
Progress Note, Physician Chief Complaint: Mr Harris is now having worsening of non-productive cough. No cp, sob, n/v. - Current Medication List Current Medications: Active Medications Acetaminophen (Tylenol -) 650 mg PO Q4H PRN PRN Reason: FEVER OR PAIN Albuterol Sulfate (Ventolin 0.083% Nebulizer Soln -) 1 amp NEB Q4H PRN PRN Reason: SHORT OF BREATH/WHEEZING Albuterol/Ipratropium (Duoneb -) 1 amp NEB RQID [facility] Last Admin: 02/25/17 11:12 Dose: 1 amp Aspirin (Ecotrin -) 81 mg PO DAILY [facility] Last Admin: 02/25/17 11:22 Dose: 81 mg Azithromycin (Zithromax -) 500 mg PO DAILY [facility] Last Admin: 02/25/17 11:22 Dose: 500 mg Benzocaine/Menthol (Cepacol Lozenge -) 1 each MM PRN PRN PRN Reason: SORE THROAT Budesonide/Formoterol Fumarate (Symbicort 160/4.5mcg -) 2 puff IH BID [facility] Last Admin: 02/25/17 11:28 Dose: 2 puff Diphenhydramine HCl (Benadryl Injection -) 12.5 mg IVPUSH Q4H PRN PRN Reason: FOR ITCHING Last Admin: 02/25/17 06:18 Dose: 12.5 mg Docusate Sodium (Colace -) 100 mg PO BID PRN PRN Reason: CONSTIPATION Enoxaparin Sodium (Lovenox -) 40 mg SQ DAILY [facility] Last Admin: 02/25/17 11:22 Dose: 40 mg Gabapentin (Neurontin -) 200 mg PO TID [facility] Last Admin: 02/25/17 06:12 Dose: 200 mg Guaifenesin/Codeine Phosphate (Robitussin Ac -) 10 ml PO Q6H PRN PRN Reason: COUGH Last Admin: 02/25/17 06:17 Dose: 10 ml CEFTRIAXONE 1 G/50 ML PREMIX (Ceftriaxone 1 Gm-D5w Bag) 50 mls @ 100 mls/hr IVPB DAILY [facility] Stop: 02/25/17 15:44 Last Admin: 02/25/17 11:19 Dose: 100 mls/hr Lactobacillus Acidophilus (Bacid -) 1 tab PO DAILY [facility] Last Admin: 02/25/17 11:24 Dose: 1 tab Methylprednisolone Sodium Succinate (Solu-Medrol -) 40 mg IVPUSH Q8H-IV [facility] Last Admin: 02/25/17 11:19 Dose: 40 mg Polyethylene Glycol (Miralax (For Daily Use) -) 17 gm PO DAILY [facility] Last Admin: 02/25/17 11:23 Dose: 17 gm Roflumilast (Daliresp -) 500 mcg PO DAILY [facility] Last Admin: 02/25/17 11:29 Dose: 500 mcg Simethicone (Mylicon -) 80 mg PO Q4H PRN PRN Reason: GAS Tiotropium [place] (Spiriva -) 1 puff IH DAILY [facility] Last Admin: 02/25/17 11:27 Dose: 1 inh Zolpidem Tartrate (Ambien -) 10 mg PO HS PRN Last Admin: 02/24/17 22:25 Dose: 10 mg - Objective Vital Signs: Vital Signs Temperature 36.3 C L 02/25/17 07:18 Pulse Rate 70 02/25/17 09:41 Respiratory Rate 18 02/25/17 07:18 Blood Pressure 116/75 02/25/17 07:18 O2 Sat by Pulse Oximetry (%) 96 02/25/17 09:41 Constitutional: Yes: Well Nourished, No Distress, Calm Cardiovascular: Yes: Regular Rate and Rhythm. No: Gallop, Murmur, Rub Respiratory: Yes: Regular, Cough, On Nasal O2, Rhonchi. No: CTA Bilaterally, Rales, Wheezes Gastrointestinal: Yes: Normal Bowel Sounds, Soft. No: Distention, Tenderness Extremities: Yes: WNL Edema: No Labs: CBC, BMP 02/25/17 07:30 02/25/17 07:30 Problem List - Problems (1) Acute exacerbation of chronic obstructive pulmonary disease Code(s): J44.1 - CHRONIC OBSTRUCTIVE PULMONARY DISEASE W (ACUTE) EXACERBATION (2) Intractable nausea and vomiting Code(s): R11.2 - NAUSEA WITH VOMITING, UNSPECIFIED Qualifiers: Vomiting type: unspecified Qualified Code(s): R11.2 - Nausea with vomiting , unspecified (3) Pneumonia Code(s): J18.9 - PNEUMONIA, UNSPECIFIED ORGANISM Assessment/Plan (1) Acute exacerbation of chronic obstructive pulmonary disease Assessment/Plan: -worsened today -case d/w Dr Mckeon -obtain PA and Lat CXR -continue high dose steroids -continue bronchodilators -continue antibiotics Code(s): J44.1 - CHRONIC OBSTRUCTIVE PULMONARY DISEASE W (ACUTE) EXACERBATION (2) Intractable nausea and vomiting Assessment/Plan: -resolved Code(s): R11.2 - NAUSEA WITH VOMITING, UNSPECIFIED Qualifiers: Vomiting type: unspecified Qualified Code(s): R11.2 - Nausea with vomiting , unspecified (3) Pneumonia -continue rocephin and zithromax today -recheck tomorrow
[2017-02-25 12:38] LABS: ACANTHOCYTES 0; ANISOCYTOSIS 0; HELMET CELLS 0; HOWELL-JOLLY BODIES 0; MACROCYTOSIS 0; OVALOCYTE 0; PLATELET ESTIMATE NORMAL; SICKELED CELLS 0; TARGET CELLS 0; TEAR DROP CELLS 0; TOXIC GRANULATION 0
--- NOTE | 2017-02-25 13:11 | PN ---
Progress Note, Physician History of Present Illness: PULMONARY ALERT,C/O INCREASED COUGH,CONGESTION TODAY - Current Medication List Current Medications: Active Medications Acetaminophen (Tylenol -) 650 mg PO Q4H PRN PRN Reason: FEVER OR PAIN Albuterol Sulfate (Ventolin 0.083% Nebulizer Soln -) 1 amp NEB Q4H PRN PRN Reason: SHORT OF BREATH/WHEEZING Albuterol/Ipratropium (Duoneb -) 1 amp NEB RQID [facility] Last Admin: 02/25/17 11:12 Dose: 1 amp Aspirin (Ecotrin -) 81 mg PO DAILY [facility] Last Admin: 02/25/17 11:22 Dose: 81 mg Azithromycin (Zithromax -) 500 mg PO DAILY [facility] Last Admin: 02/25/17 11:22 Dose: 500 mg Benzocaine/Menthol (Cepacol Lozenge -) 1 each MM PRN PRN PRN Reason: SORE THROAT Budesonide/Formoterol Fumarate (Symbicort 160/4.5mcg -) 2 puff IH BID [facility] Last Admin: 02/25/17 11:28 Dose: 2 puff Diphenhydramine HCl (Benadryl Injection -) 12.5 mg IVPUSH Q4H PRN PRN Reason: FOR ITCHING Last Admin: 02/25/17 13:04 Dose: 12.5 mg Docusate Sodium (Colace -) 100 mg PO BID PRN PRN Reason: CONSTIPATION Enoxaparin Sodium (Lovenox -) 40 mg SQ DAILY [facility] Last Admin: 02/25/17 11:22 Dose: 40 mg Gabapentin (Neurontin -) 200 mg PO TID [facility] Last Admin: 02/25/17 06:12 Dose: 200 mg Guaifenesin/Codeine Phosphate (Robitussin Ac -) 10 ml PO Q6H PRN PRN Reason: COUGH Last Admin: 02/25/17 06:17 Dose: 10 ml CEFTRIAXONE 1 G/50 ML PREMIX (Ceftriaxone 1 Gm-D5w Bag) 50 mls @ 100 mls/hr IVPB DAILY [facility] Stop: 02/25/17 15:44 Last Admin: 02/25/17 11:19 Dose: 100 mls/hr Lactobacillus Acidophilus (Bacid -) 1 tab PO DAILY [facility] Last Admin: 02/25/17 11:24 Dose: 1 tab Methylprednisolone Sodium Succinate (Solu-Medrol -) 40 mg IVPUSH Q8H-IV [facility] Last Admin: 02/25/17 11:19 Dose: 40 mg Polyethylene Glycol (Miralax (For Daily Use) -) 17 gm PO DAILY [facility] Last Admin: 02/25/17 11:23 Dose: 17 gm Roflumilast (Daliresp -) 500 mcg PO DAILY [facility] Last Admin: 02/25/17 11:29 Dose: 500 mcg Simethicone (Mylicon -) 80 mg PO Q4H PRN PRN Reason: GAS Tiotropium [place] (Spiriva -) 1 puff IH DAILY [facility] Last Admin: 02/25/17 11:27 Dose: 1 inh Zolpidem Tartrate (Ambien -) 10 mg PO HS PRN Last Admin: 02/24/17 22:25 Dose: 10 mg - Objective Vital Signs: Vital Signs Temperature 97.3 F L 02/25/17 07:18 Pulse Rate 70 02/25/17 09:41 Respiratory Rate 18 02/25/17 07:18 Blood Pressure 116/75 02/25/17 07:18 O2 Sat by Pulse Oximetry (%) 96 02/25/17 09:41 Constitutional: Yes: Well Nourished, Calm Eyes: Yes: WNL HENT: Yes: WNL Neck: Yes: WNL Cardiovascular: Yes: Regular Rate and Rhythm, S1, S2 Respiratory: Yes: Rhonchi (FEW RHONCHI) Gastrointestinal: Yes: Normal Bowel Sounds, Soft Extremities: Yes: WNL Edema: No Labs: CBC, BMP 02/25/17 07:30 02/25/17 07:30 Problem List - Problems (1) Pneumonia Code(s): J18.9 - PNEUMONIA, UNSPECIFIED ORGANISM (2) Intractable nausea and vomiting Code(s): R11.2 - NAUSEA WITH VOMITING, UNSPECIFIED Qualifiers: Vomiting type: unspecified Qualified Code(s): R11.2 - Nausea with vomiting , unspecified (3) Hyperlipidemia Code(s): E78.5 - HYPERLIPIDEMIA, UNSPECIFIED (4) Acute exacerbation of chronic obstructive pulmonary disease Code(s): J44.1 - CHRONIC OBSTRUCTIVE PULMONARY DISEASE W (ACUTE) EXACERBATION Assessment/Plan IMP COPD EXAERBATION RLL PNEUMONIA N/V PLAN STEROIDS SAME DOSE INHALED BRONCHODILATORS O2 ABX ANTI-TUSSIVES CHEST X-RAY DR BROCK Problem List - Problems (1) Pneumonia Code(s): J18.9 - PNEUMONIA, UNSPECIFIED ORGANISM (2) Intractable nausea and vomiting Code(s): R11.2 - NAUSEA WITH VOMITING, UNSPECIFIED Qualifiers: Vomiting type: unspecified Qualified Code(s): R11.2 - Nausea with vomiting , unspecified (3) Hyperlipidemia Code(s): E78.5 - HYPERLIPIDEMIA, UNSPECIFIED (4) Acute exacerbation of chronic obstructive pulmonary disease Code(s): J44.1 - CHRONIC OBSTRUCTIVE PULMONARY DISEASE W (ACUTE) EXACERBATION
[2017-02-25] MEDS: ZOLPIDEM TARTRATE 5 MG TABLET PO PRN (21:38)
[2017-02-26] MEDS: methylPREDNISolone NA SUCC 40 MG/1 ML VIAL IVPUSH SCH ×3 (01:12→22:17)
[2017-02-26] MEDS: guaiFENesin/CODEINE 10 ML UNIT-DOSE CUPS PO PRN ×4 (01:12→22:17)
[2017-02-26] MEDS: GABAPENTIN 100 MG CAPSULE (FP) PO SCH ×3 (05:43→22:17)
[2017-02-26 07:42] LABS: HEMATOCRIT 42.2 % (35.4-49); HEMOGLOBIN 13.3 GM/dL (11.7-16.9); MCH 30.7 pg (25.7-33.7); MCHC 31.5 g/dl (32.0-35.9); MEAN CELL VOLUME 97.3 fl (80-96); MEAN PLT VOLUME 7.3 fl (7.5-11.1); PLATELET COUNT 374 K/MM3 (134-434); RBC 4.34 M/mm3 (4.00-5.60); RDW 13.7 % (11.9-15.9); WHITE BLOOD COUNT 21.8 K/mm3 (4.0-10.0)
[2017-02-26] MEDS: ALBUTEROL SO4 2.5/IPRATROPIUM 0.5 INH SOL 3 ML VIAL.NEB. NEB SCH ×4 (08:12→21:00)
[2017-02-26 08:18] LABS: ANION GAP 9 (8-16); BLOOD UREA NITROGEN 23 mg/dL (7-18); CALCIUM 8.5 mg/dL (8.5-10.1); CHLORIDE 104 mmol/L (98-107); CO2 28 mmol/L (21-32); CREATININE 0.8 mg/dL (0.7-1.3); GLUCOSE,RANDOM 114 mg/dL (74-106); MAGNESIUM 2.4 mg/dL (1.8-2.4); PHOSPHOROUS 3.6 mg/dL (2.5-4.9); POTASSIUM 4.5 mmol/L (3.5-5.1); SODIUM 141 mmol/L (136-145)
[2017-02-26] MEDS: ROFLUMILAST 500 MCG TABLET PO SCH (09:13)
[2017-02-26] MEDS: BUDESONIDE/FORMETEROL FUMARATE 160/4.5 mcg INHALER IH SCH ×2 (09:20→22:30)
[2017-02-26] MEDS: TIOTROPIUM BROMIDE 18 MCG/INH (DEVICE W/ 5 CAPSULES) IH SCH (09:21)
[2017-02-26] MEDS: AZITHROMYCIN 250 MG TABLET PO SCH (09:32)
[2017-02-26] MEDS: ENOXAPARIN NA (PORCINE) 40 MG/0.4 ML DISP.SYRIN SQ SCH (09:32)
[2017-02-26] MEDS: LACTOBACILLUS ACIDOPHILUS 1 EACH TAB (FP) PO SCH (09:33)
[2017-02-26] MEDS: ASPIRIN COATED 81 MG TABLET.EC PO SCH (09:33)
[2017-02-26] MEDS: POLYETHYLENE GLYCOL 3350 119 GM BTL PO SCH (09:34)
[2017-02-26] MEDS ORDERED: PT OWN MED DRAWER 7, Y5N ONE ×3 (09:46→22:29)
--- NOTE | 2017-02-26 13:06 | PN ---
Progress Note, Physician Chief Complaint: Mr Harris says his breathing is improved but still with persistent cough, worse when he lies down. Denies cp and n/v. Patient says he is not having heartburn. - Current Medication List Current Medications: Active Medications Acetaminophen (Tylenol -) 650 mg PO Q4H PRN PRN Reason: FEVER OR PAIN Albuterol Sulfate (Ventolin 0.083% Nebulizer Soln -) 1 amp NEB Q4H PRN PRN Reason: SHORT OF BREATH/WHEEZING Albuterol/Ipratropium (Duoneb -) 1 amp NEB RQID [facility] Last Admin: 02/26/17 11:05 Dose: 1 amp Aspirin (Ecotrin -) 81 mg PO DAILY [facility] Last Admin: 02/26/17 09:33 Dose: 81 mg Azithromycin (Zithromax -) 500 mg PO DAILY [facility] Last Admin: 02/26/17 09:32 Dose: 500 mg Benzocaine/Menthol (Cepacol Lozenge -) 1 each MM PRN PRN PRN Reason: SORE THROAT Budesonide/Formoterol Fumarate (Symbicort 160/4.5mcg -) 2 puff IH BID [facility] Last Admin: 02/26/17 09:20 Dose: 2 puff Diphenhydramine HCl (Benadryl Injection -) 12.5 mg IVPUSH Q4H PRN PRN Reason: FOR ITCHING Last Admin: 02/26/17 09:14 Dose: 12.5 mg Docusate Sodium (Colace -) 100 mg PO BID PRN PRN Reason: CONSTIPATION Enoxaparin Sodium (Lovenox -) 40 mg SQ DAILY [facility] Last Admin: 02/26/17 09:32 Dose: 40 mg Gabapentin (Neurontin -) 200 mg PO TID [facility] Last Admin: 02/26/17 05:43 Dose: 200 mg Guaifenesin/Codeine Phosphate (Robitussin Ac -) 10 ml PO Q6H PRN PRN Reason: COUGH Last Admin: 02/26/17 09:18 Dose: 10 ml Lactobacillus Acidophilus (Bacid -) 1 tab PO DAILY [facility] Last Admin: 02/26/17 09:33 Dose: 1 tab Methylprednisolone Sodium Succinate (Solu-Medrol -) 40 mg IVPUSH Q8H-IV [facility] Last Admin: 02/26/17 09:34 Dose: 40 mg Polyethylene Glycol (Miralax (For Daily Use) -) 17 gm PO DAILY [facility] Last Admin: 02/26/17 09:34 Dose: 17 gm Roflumilast (Daliresp -) 500 mcg PO DAILY [facility] Last Admin: 02/26/17 09:13 Dose: 500 mcg Simethicone (Mylicon -) 80 mg PO Q4H PRN PRN Reason: GAS Tiotropium [place] (Spiriva -) 1 puff IH DAILY [facility] Last Admin: 02/26/17 09:21 Dose: 1 inh Zolpidem Tartrate (Ambien -) 10 mg PO HS PRN Last Admin: 02/25/17 21:38 Dose: 10 mg - Objective Vital Signs: Vital Signs Temperature 36.7 C 02/26/17 05:00 Pulse Rate 84 02/26/17 10:00 Respiratory Rate 20 02/26/17 10:00 Blood Pressure 120/66 02/26/17 10:00 O2 Sat by Pulse Oximetry (%) 97 02/26/17 08:12 Constitutional: Yes: Well Nourished, No Distress, Calm Cardiovascular: Yes: Regular Rate and Rhythm. No: Gallop, Murmur, Rub Respiratory: Yes: Regular, CTA Bilaterally. No: Rales, Rhonchi, Wheezes Extremities: Yes: WNL Edema: No Labs: CBC, BMP 02/26/17 07:00 02/26/17 07:00 Problem List - Problems (1) Acute exacerbation of chronic obstructive pulmonary disease Code(s): J44.1 - CHRONIC OBSTRUCTIVE PULMONARY DISEASE W (ACUTE) EXACERBATION (2) Intractable nausea and vomiting Code(s): R11.2 - NAUSEA WITH VOMITING, UNSPECIFIED Qualifiers: Vomiting type: unspecified Qualified Code(s): R11.2 - Nausea with vomiting , unspecified (3) Pneumonia Code(s): J18.9 - PNEUMONIA, UNSPECIFIED ORGANISM Assessment/Plan (1) Acute exacerbation of chronic obstructive pulmonary disease Assessment/Plan: -breathing improved but still with productive cough -patient says the cough never went away from his last admission but worsened prior to this one -chest x-ray clear -worse when lying down, ? GERD. Will start protonix -not on ACEI or ARBs -will begin to taper solumedrol -continue bronchodilators Code(s): J44.1 - CHRONIC OBSTRUCTIVE PULMONARY DISEASE W (ACUTE) EXACERBATION (2) Intractable nausea and vomiting Assessment/Plan: -resolved Code(s): R11.2 - NAUSEA WITH VOMITING, UNSPECIFIED Qualifiers: Vomiting type: unspecified Qualified Code(s): R11.2 - Nausea with vomiting , unspecified (3) Pneumonia -s/p full course of antibiotics
--- NOTE | 2017-02-26 13:07 | PN ---
Progress Note, Physician History of Present Illness: PULMONARY ALERT,LESS DYSPNEIC,+COUGH - Current Medication List Current Medications: Active Medications Acetaminophen (Tylenol -) 650 mg PO Q4H PRN PRN Reason: FEVER OR PAIN Albuterol Sulfate (Ventolin 0.083% Nebulizer Soln -) 1 amp NEB Q4H PRN PRN Reason: SHORT OF BREATH/WHEEZING Albuterol/Ipratropium (Duoneb -) 1 amp NEB RQID [facility] Last Admin: 02/26/17 11:05 Dose: 1 amp Aspirin (Ecotrin -) 81 mg PO DAILY [facility] Last Admin: 02/26/17 09:33 Dose: 81 mg Azithromycin (Zithromax -) 500 mg PO DAILY [facility] Last Admin: 02/26/17 09:32 Dose: 500 mg Benzocaine/Menthol (Cepacol Lozenge -) 1 each MM PRN PRN PRN Reason: SORE THROAT Budesonide/Formoterol Fumarate (Symbicort 160/4.5mcg -) 2 puff IH BID [facility] Last Admin: 02/26/17 09:20 Dose: 2 puff Diphenhydramine HCl (Benadryl Injection -) 12.5 mg IVPUSH Q4H PRN PRN Reason: FOR ITCHING Last Admin: 02/26/17 09:14 Dose: 12.5 mg Docusate Sodium (Colace -) 100 mg PO BID PRN PRN Reason: CONSTIPATION Enoxaparin Sodium (Lovenox -) 40 mg SQ DAILY [facility] Last Admin: 02/26/17 09:32 Dose: 40 mg Gabapentin (Neurontin -) 200 mg PO TID [facility] Last Admin: 02/26/17 05:43 Dose: 200 mg Guaifenesin/Codeine Phosphate (Robitussin Ac -) 10 ml PO Q6H PRN PRN Reason: COUGH Last Admin: 02/26/17 09:18 Dose: 10 ml Lactobacillus Acidophilus (Bacid -) 1 tab PO DAILY [facility] Last Admin: 02/26/17 09:33 Dose: 1 tab Methylprednisolone Sodium Succinate (Solu-Medrol -) 40 mg IVPUSH Q8H-IV [facility] Last Admin: 02/26/17 09:34 Dose: 40 mg Polyethylene Glycol (Miralax (For Daily Use) -) 17 gm PO DAILY [facility] Last Admin: 02/26/17 09:34 Dose: 17 gm Roflumilast (Daliresp -) 500 mcg PO DAILY [facility] Last Admin: 02/26/17 09:13 Dose: 500 mcg Simethicone (Mylicon -) 80 mg PO Q4H PRN PRN Reason: GAS Tiotropium [place] (Spiriva -) 1 puff IH DAILY [facility] Last Admin: 02/26/17 09:21 Dose: 1 inh Zolpidem Tartrate (Ambien -) 10 mg PO HS PRN Last Admin: 02/25/17 21:38 Dose: 10 mg - Objective Vital Signs: Vital Signs Temperature 98.0 F 02/26/17 05:00 Pulse Rate 84 02/26/17 10:00 Respiratory Rate 20 02/26/17 10:00 Blood Pressure 120/66 02/26/17 10:00 O2 Sat by Pulse Oximetry (%) 97 02/26/17 08:12 Constitutional: Yes: Well Nourished, Calm Eyes: Yes: WNL HENT: Yes: WNL Neck: Yes: WNL Cardiovascular: Yes: Regular Rate and Rhythm, S1, S2 Respiratory: Yes: Rhonchi (FEW RHONCHI) Gastrointestinal: Yes: Normal Bowel Sounds, Soft Extremities: Yes: WNL Edema: No Labs: CBC, BMP 02/26/17 07:00 02/26/17 07:00 - ....Imaging Chest X-ray: Report Reviewed, Image Reviewed (- INFITRATES) Problem List - Problems (1) Pneumonia Code(s): J18.9 - PNEUMONIA, UNSPECIFIED ORGANISM (2) Intractable nausea and vomiting Code(s): R11.2 - NAUSEA WITH VOMITING, UNSPECIFIED Qualifiers: Vomiting type: unspecified Qualified Code(s): R11.2 - Nausea with vomiting , unspecified (3) Hyperlipidemia Code(s): E78.5 - HYPERLIPIDEMIA, UNSPECIFIED (4) Acute exacerbation of chronic obstructive pulmonary disease Code(s): J44.1 - CHRONIC OBSTRUCTIVE PULMONARY DISEASE W (ACUTE) EXACERBATION Assessment/Plan IMP COPD EXACERBATION IMPROVING RLL PNEUMONIA N/V PLAN STEROIDS INHALED BRONCHODILATORS O2 ABX ANTI-TUSSIVES PFTS OUTPATIENT OUTPATIENT PULMONARY REHAB DR BROCK Problem List - Problems (1) Pneumonia Code(s): J18.9 - PNEUMONIA, UNSPECIFIED ORGANISM (2) Intractable nausea and vomiting Code(s): R11.2 - NAUSEA WITH VOMITING, UNSPECIFIED Qualifiers: Vomiting type: unspecified Qualified Code(s): R11.2 - Nausea with vomiting , unspecified (3) Hyperlipidemia Code(s): E78.5 - HYPERLIPIDEMIA, UNSPECIFIED (4) Acute exacerbation of chronic obstructive pulmonary disease Code(s): J44.1 - CHRONIC OBSTRUCTIVE PULMONARY DISEASE W (ACUTE) EXACERBATION
[2017-02-26 14:50] LABS: ANISOCYTOSIS 3+; MACROCYTOSIS 0; PLATELET ESTIMATE NORMAL
[2017-02-26] MEDS: PANTOPRAZOLE 40 MG TABLET (FP) PO SCH (17:54)
[2017-02-26] MEDS: ZOLPIDEM TARTRATE 5 MG TABLET PO PRN (22:16)
[2017-02-26] MEDS: BACITRACIN 15 GM TUBE TOPICAL OINTMENT TP SCH (22:18)
[2017-02-27] MEDS: guaiFENesin/CODEINE 10 ML UNIT-DOSE CUPS PO PRN ×2 (06:52→12:47)
[2017-02-27] MEDS: GABAPENTIN 100 MG CAPSULE (FP) PO SCH ×2 (07:45→14:44)
[2017-02-27 08:31] LABS: BASO % 0.1 % (0-2.0); HEMATOCRIT 42.3 % (35.4-49); HEMOGLOBIN 13.5 GM/dL (11.7-16.9); LYMPH % 3.4 % (8-40); MCH 30.9 pg (25.7-33.7); MCHC 31.9 g/dl (32.0-35.9); MEAN CELL VOLUME 96.8 fl (80-96); MEAN PLT VOLUME 7.2 fl (7.5-11.1); MONO % 5.6 % (3.8-10.2); NEUT % 90.9 % (42.8-82.8); PLATELET COUNT 360 K/MM3 (134-434); RBC 4.37 M/mm3 (4.00-5.60); RDW 13.8 % (11.9-15.9); WHITE BLOOD COUNT 21.4 K/mm3 (4.0-10.0)
[2017-02-27 08:50] LABS: CHLORIDE 104 mmol/L (98-107); POTASSIUM 4.1 mmol/L (3.5-5.1); SODIUM 138 mmol/L (136-145)
[2017-02-27] MEDS: ALBUTEROL SO4 2.5/IPRATROPIUM 0.5 INH SOL 3 ML VIAL.NEB. NEB SCH ×2 (08:56→12:12)
[2017-02-27 09:22] LABS: ANION GAP 10 (8-16); BLOOD UREA NITROGEN 25 mg/dL (7-18); CALCIUM 8.4 mg/dL (8.5-10.1); CO2 24 mmol/L (21-32); CREATININE 0.8 mg/dL (0.7-1.3); GLUCOSE,RANDOM 117 mg/dL (74-106); MAGNESIUM 2.5 mg/dL (1.8-2.4); PHOSPHOROUS 3.7 mg/dL (2.5-4.9)
[2017-02-27] MEDS ORDERED: PT OWN MED DRAWER 7, Y5N ONE ×2 (09:23→14:43)
[2017-02-27] MEDS: ASPIRIN COATED 81 MG TABLET.EC PO SCH (09:24)
[2017-02-27] MEDS: PANTOPRAZOLE 40 MG TABLET (FP) PO SCH (09:24)
[2017-02-27] MEDS: LACTOBACILLUS ACIDOPHILUS 1 EACH TAB (FP) PO SCH (09:24)
[2017-02-27] MEDS: ROFLUMILAST 500 MCG TABLET PO SCH (09:25)
[2017-02-27] MEDS: methylPREDNISolone NA SUCC 40 MG/1 ML VIAL IVPUSH SCH (09:25)
[2017-02-27] MEDS: ENOXAPARIN NA (PORCINE) 40 MG/0.4 ML DISP.SYRIN SQ SCH (09:25)
[2017-02-27] MEDS: POLYETHYLENE GLYCOL 3350 119 GM BTL PO SCH (09:25)
[2017-02-27] MEDS: BUDESONIDE/FORMETEROL FUMARATE 160/4.5 mcg INHALER IH SCH (09:26)
[2017-02-27] MEDS: TIOTROPIUM BROMIDE 18 MCG/INH (DEVICE W/ 5 CAPSULES) IH SCH (09:26)
[2017-02-27] MEDS: BACITRACIN 15 GM TUBE TOPICAL OINTMENT TP SCH (09:27)
[2017-02-27 11:45] VITALS: BP 119/67; PULSE 80; TEMP 97.5
--- NOTE | 2017-02-27 12:23 | PN ---
Progress Note (short form) - Note Progress Note: PULMONARY States breathing is improving but still dyspneic with ambulating. + nonproductive cough and occasional wheezing. Last Vital Signs Temp Pulse Resp BP Pulse Ox 97.5 F L 80 18 119/67 93 L 02/27/17 09:00 02/27/17 09:00 02/27/17 09:00 02/27/17 09:00 02/26/17 21:00 Gen: mildly tachypneic with speaking Heart: RRR Lung: distant breath sounds, no wheezes Abd: soft, nontender Ext: no edema CBC, BMP 02/27/17 07:00 02/27/17 07:00 Active Medications Acetaminophen (Tylenol -) 650 mg PO Q4H PRN PRN Reason: FEVER OR PAIN Albuterol Sulfate (Ventolin 0.083% Nebulizer Soln -) 1 amp NEB Q4H PRN PRN Reason: SHORT OF BREATH/WHEEZING Albuterol/Ipratropium (Duoneb -) 1 amp NEB RQID [facility] Last Admin: 02/27/17 12:12 Dose: 1 amp Aspirin (Ecotrin -) 81 mg PO DAILY [facility] Last Admin: 02/27/17 09:24 Dose: 81 mg Bacitracin (Bacitracin -) 1 applic TP BID [facility] Last Admin: 02/27/17 09:27 Dose: 1 applic Benzocaine/Menthol (Cepacol Lozenge -) 1 each MM PRN PRN PRN Reason: SORE THROAT Last Admin: 02/26/17 22:30 Dose: 1 each Budesonide/Formoterol Fumarate (Symbicort 160/4.5mcg -) 2 puff IH BID [facility] Last Admin: 02/27/17 09:26 Dose: 2 puff Diphenhydramine HCl (Benadryl Injection -) 12.5 mg IVPUSH Q4H PRN PRN Reason: FOR ITCHING Last Admin: 02/27/17 06:52 Dose: 12.5 mg Docusate Sodium (Colace -) 100 mg PO BID PRN PRN Reason: CONSTIPATION Enoxaparin Sodium (Lovenox -) 40 mg SQ DAILY [facility] Last Admin: 02/27/17 09:25 Dose: 40 mg Gabapentin (Neurontin -) 200 mg PO TID [facility] Last Admin: 02/27/17 07:45 Dose: 200 mg Guaifenesin/Codeine Phosphate (Robitussin Ac -) 10 ml PO Q6H PRN PRN Reason: COUGH Last Admin: 02/27/17 06:52 Dose: 10 ml Lactobacillus Acidophilus (Bacid -) 1 tab PO DAILY [facility] Last Admin: 02/27/17 09:24 Dose: 1 tab Methylprednisolone Sodium Succinate (Solu-Medrol -) 40 mg IVPUSH BID [facility] Last Admin: 02/27/17 09:25 Dose: 40 mg Pantoprazole Sodium (Protonix -) 40 mg PO DAILY [facility] Last Admin: 02/27/17 09:24 Dose: 40 mg Polyethylene Glycol (Miralax (For Daily Use) -) 17 gm PO DAILY [facility] Last Admin: 02/27/17 09:25 Dose: 17 gm Roflumilast (Daliresp -) 500 mcg PO DAILY [facility] Last Admin: 02/27/17 09:25 Dose: 500 mcg Simethicone (Mylicon -) 80 mg PO Q4H PRN PRN Reason: GAS Tiotropium [place] (Spiriva -) 1 puff IH DAILY [facility] Last Admin: 02/27/17 09:26 Dose: 1 inh Zolpidem Tartrate (Ambien -) 10 mg PO HS PRN Last Admin: 02/26/17 22:16 Dose: 10 mg A/P Acute COPD Exacerbation Pneumonia - can change steroids to PO prednisone 40mg daily and taper as outpt - inhaled bronchodilators - daliresp - completed antibiotics - DVT prophylaxis - pt reports feeling well enough to go home
--- NOTE | 2017-02-27 13:50 | DS ---
Physical Examination Vital Signs: Vital Signs Temperature 36.4 C L 02/27/17 09:00 Pulse Rate 80 02/27/17 09:00 Respiratory Rate 18 02/27/17 09:00 Blood Pressure 119/67 02/27/17 09:00 O2 Sat by Pulse Oximetry (%) 93 L 02/26/17 21:00 Labs: CBC, BMP 02/27/17 07:00 02/27/17 07:00 Discharge Summary Reason For Visit: COPD W ACUTE EXACERBATION Current Active Problems Acute exacerbation of chronic obstructive pulmonary disease (Acute) Pneumonia (Acute) Condition: Stable - Instructions Diet, Activity, Other Instructions: resume previous diet and activity Referrals: Dm Castillo MD [Primary Care Provider] - Сергей Martinez MD [Staff Physician] - Disposition: HOME - Home Medications Comprehensive Discharge Medication List: Ambulatory Orders Fluticasone/Salmeterol [Advair 250-50 Diskus] 500 each IH BID 04/22/15 Roflumilast [Daliresp -] 500 mcg PO DAILY #30 tablet 04/28/15 Aspirin Coated [Ecotrin -] 81 mg PO DAILY #0 08/25/15 Zolpidem Tartrate [Zolpidem Tartrate ER] 12.5 mg PO HS 08/25/15 Gabapentin [Neurontin -] 200 mg PO 0600,1200,1800 04/01/16 Albuterol Sulfate Inhaler - [Ventolin HFA Inhaler -] 1 - 2 inh PO Q4H PRN Albuterol Sulfate [Proair Respiclick] 90 mcg IH DAILY 05/16/16 Tiotropium [place] [Spiriva] 18 mcg IH DAILY 05/16/16 Aclidinium [place] [Tudorza -] 1 inh PO BID 02/18/17 Guaifenesin AC [Robitussin AC -] 10 ml PO Q6H PRN #1 bottle MDD 40mL 02/27/17 Lactobacillus Acidophilus [Bacid -] 1 tab PO DAILY #20 tab 02/27/17 Pantoprazole Sodium [Protonix -] 40 mg PO DAILY #30 tablet.ec 02/27/17 Prednisone [Deltasone -] 5 mg PO ASDIR #78 tab 02/27/17
== END 2017-02-27 15:05 | disposition home or self-care (01) | DRG 190 ==
LOC: JER 11:08 → JERBED 15:28 → J5S 18:37
PROVIDERS: ADMIT Internal Medicine; ATTEND Internal Medicine
DX: J44.1 Chronic obstructive pulmonary disease with (acute) exacerbation (principal); J18.9 Pneumonia, unspecified organism; R11.2 Nausea with vomiting, unspecified; E78.5 Hyperlipidemia, unspecified; Z87.891 Personal history of nicotine dependence; D72.829 Elevated white blood cell count, unspecified
CPT/HCPCS: 36415; 71046-TC-FY; 71250-TC; 74177-TC; 80048; 80053; 82550; 83605; 83735; 83880; 84100; 84484; 85025; 87040; 87804; 93005; 93010; 94640; 99283-25

== ENCOUNTER 2017-06-10 17:30 | Emergency (ER) | payer OTHER, BC ==
--- NOTE | 2017-06-10 18:04 | PDOC ---
Rapid Medical Evaluation Time Seen by Provider: 06/10/17 18:00 Medical Evaluation: Allergies Allergy/AdvReac Type Severity Reaction Status Date / Time amoxicillin Allergy Verified 06/10/17 18:00 metronidazole [From Flagyl] Allergy Verified 06/10/17 18:00 morphine AdvReac Severe Vomiting Verified 06/10/17 18:00 oxycodone AdvReac Severe Vomiting Verified 06/10/17 18:00 methylprednisolone AdvReac Mild Itching Verified 06/10/17 18:00 [From Solu-Medrol] 06/10/17 18:01 I have performed a brief in-person evaluation of this patient. The patient presents with a chief complaint of nausea, vomiting, diarrhea x 5 days Reports vomiting today with normal stools today Pertinent physical exam findings are nad lungs clear bilaterally +tenderness in right upper quadrant, + bowel sounds I have ordered the following labs this patient will proceed to the ED for further evaluation.
[2017-06-10 18:05] VITALS: BP 120/64; PULSE 77; TEMP 98; BMI 23.0
[2017-06-10] MEDS ORDERED: ONDANSETRON 4 MG/2 ML VIAL IVPUSH ONE (19:42)
[2017-06-10] MEDS ORDERED: SODIUM CHLORIDE 1,000 ML IV STA (19:43)
--- NOTE | 2017-06-10 20:15 | PDOC ---
History of Present Illness - General Chief Complaint: Pain, Acute Stated Complaint: S.O.B Time Seen by Provider: 06/10/17 18:00 - History of Present Illness Initial Comments: 67M past medical history of COPD, HLD, fungal esophagitis, atrial fibrillation (on eliquis), restless leg, chronic abdominal pain (on Creon, Flagyl, Protonix, and Reglan), and insomnia presenting to the hospital with acute abdominal pain, nausea, vomiting, and cough. He states that he has had "non-stop vomiting" for the pat 4-5 days despite use of his medications. He is tolerating liquids but says he has trouble with solids. Denies fevers, chills, diarrhea, headache, focal neuro exam, or other sick symptoms. He was admitted to our hospital for very similar symptoms a few weeks prior and saw Dr. Pratt who started his abdominal symptom regimen. Toward the end of his stay he was tolerating solid foods. He had a leukocytosis at that point but imaging and other workup were inconclusive for a source of infection or concerning abdominal pathology. Past History - Past Medical History Allergies/Adverse Reactions: Allergies Allergy/AdvReac Type Severity Reaction Status Date / Time amoxicillin Allergy Verified 06/10/17 18:00 morphine AdvReac Severe Vomiting Verified 06/10/17 18:00 oxycodone AdvReac Severe Vomiting Verified 06/10/17 18:00 methylprednisolone AdvReac Mild Itching Verified 06/10/17 18:00 [From [facility]] Home Medications: Ambulatory Orders Albuterol Sulfate 2.5 mg IH DAILY 05/22/17 Albuterol Sulfate [Proair Respiclick] 90 mcg IH PRN PRN 05/22/17 Apixaban [Eliquis] 5 mg PO BID 05/22/17 Atorvastatin Ca [Lipitor] 10 mg PO DAILY 05/22/17 Metoclopramide HCl 10 mg PO TID 05/22/17 Metoprolol Succinate 25 mg PO DAILY 05/22/17 Ondansetron HCl [Zofran] 4 mg PO TID 05/22/17 Pantoprazole Sodium 40 mg PO BID 05/22/17 Roflumilast [Daliresp] 500 mcg PO DAILY 05/22/17 Tiotropium [place] [Spiriva] 1 inh IH DAILY 05/22/17 Zolpidem Tartrate [Ambien Cr] 12.5 mg PO HS 05/22/17 Lipase/Protease/Amylase [Kaylen Valiente 36,000 Units Capsule] 1 cap PO TIDCM #90 capsule. 05/24/17 Polyethylene Glycol 3350 [Miralax 119 gm Btl -] 17 gm PO DAILY 30 Days bottle 05/24/17 Ondansetron [Zofran *Odt*] 8 mg SL BID PRN #10 od.tablet 06/10/17 Simethicone Liquid [Mylicon Liquid -] 40 mg PO QID #1 bottle 06/10/17 Anemia: No Asthma: No Cancer: No Cardiac Disorders: Yes (a fib) CVA: No COPD: Yes (HX OF PNEUMONIA) CHF: No Dementia: No Diabetes: No GI Disorders: Yes (COLON POLYPS) Disorders: No HTN: No Hypercholesterolemia: Yes Liver Disease: No Seizures: No Thyroid Disease: No - Surgical History Abdominal Surgery: Yes (LT INGUINAL AND UMBILICAL) Appendectomy: No Cardiac Surgery: No Cholecystectomy: No Lung Surgery: No Neurologic Surgery: No Orthopedic Surgery: Yes (RT ROTATOR CUFF SHOULDER) - Immunization History Immunization Up to Date: Yes - Suicide/Smoking/Psychosocial Hx Smoking History: Former smoker Have you smoked in the past 12 months: No If you are a former smoker, when did you quit?: 1987 Information on smoking cessation initiated: No Hx Alcohol Use: No Drug/Substance Use Hx: No Substance Use Type: None Hx Substance Use Treatment: No Review of Systems - Review of Systems Constitutional: No: Chills, Diaphoresis, Fever HEENTM: No: Blurred Vision, Tearing Respiratory: Yes: Cough. No: Shortness of Breath Cardiac (ROS): No: Chest Pain, Irregular Heart Rate ABD/GI: Yes: Nausea, Poor Appetite, Vomiting. No: Constipated, Diarrhea, Difficulty Swallowing : No: Burning, Dysuria, Discharge Musculoskeletal: No: Back Pain, Joint Pain Integumentary: No: Bruising, Change in Color, Flushing, Lesions, Lumps Neurological: No: Headache, Numbness, Paresthesia Hematologic/Lymphatic: No: Anemia, Blood Clots, Easy Bleeding *Physical Exam - Vital Signs Last Vital Signs Temp Pulse Resp BP Pulse Ox 98.0 F 77 17 120/64 95 06/10/17 18:02 06/10/17 18:02 06/10/17 18:02 06/10/17 18:02 06/10/17 18:02 - Physical Exam General Appearance: Yes: Nourished, Appropriately Dressed. No: Apparent Distress HEENT: positive: EOMI, KAYLEEN, Normal ENT Inspection, Normal Voice Neck: positive: Trachea midline, Normal Thyroid, Supple. negative: Tender, Rigid Respiratory/Chest: positive: Lungs Clear, Normal Breath Sounds. negative: Chest Tender, Respiratory Distress, Accessory Muscle Use Cardiovascular: positive: Regular Rhythm, Regular Rate Gastrointestinal/Abdominal: positive: Normal Bowel Sounds, Flat, Soft. negative : Tender, Distended Musculoskeletal: positive: Normal Inspection. negative: CVA Tenderness, Decreased Range of Motion Extremity: positive: Normal Capillary Refill, Normal Inspection, Normal Range of Motion. negative: Tender Integumentary: positive: Normal Color, Dry Neurologic: positive: buffet server II-XII NML intact, Fully Oriented, Alert, Normal Mood/ Affect, Normal Response, Motor Strength / ED Treatment Course - LABORATORY CBC & Chemistry Diagram: 06/10/17 20:05 06/10/17 20:05 Medical Decision Making - Medical Decision Making Patient with chronic abdominal complaints presenting with purported unstoppable nausea/ vomiting for the past 4-5 days. Labs were all completely WNL and he had no episodes of nausea/ vomiting during his stay here. He also tolerated liquids without issue. Abdomen non-tender so imaging will be deferred. Will discharge patient with Zofran x 1 weeks, simethicone and follow up with Dr. Pratt. 06/10/17 21:47 *DC/Admit/Observation/Transfer Diagnosis at time of Disposition: Abdominal pain Qualifiers: Abdominal location: generalized Qualified Code(s): R10.84 - Generalized abdominal pain - Discharge Dispostion Disposition: HOME Condition at time of disposition: Improved Admit: No - Prescriptions Prescriptions: Ondansetron [Zofran *Odt*] 8 mg SL BID PRN #10 od.tablet PRN Reason: Nausea And/Or Vomiting Simethicone Liquid [Mylicon Liquid -] 40 mg PO QID #1 bottle - Referrals Referrals: Dm Castillo MD [Primary Care Provider] - - Patient Instructions Printed Discharge Instructions: DI for Acute Abdomen Additional Instructions: Your labs did not show infection or any abdominal issue. We added two medications to help you with your gas and nausea. You need to follow up with Dr. Pratt to have further evaluation. Please return to the Ed if you have new or worsening symptoms. - Post Discharge Activity
[2017-06-10 20:18] LABS: BASO % 0.9 % (0-2.0); EOS % 1.8 % (0-4.5); HEMOGLOBIN 13.2 GM/dL (11.7-16.9); LYMPH % 23.5 % (8-40); MCH 31.6 pg (25.7-33.7); MCHC 33.9 g/dl (32.0-35.9); MEAN CELL VOLUME 93.3 fl (80-96); MEAN PLT VOLUME 7.1 fl (7.5-11.1); MONO % 10.3 % (3.8-10.2); NEUT % 63.5 % (42.8-82.8); PLATELET COUNT 256 K/MM3 (134-434); RBC 4.19 M/mm3 (4.00-5.60); RDW 13.5 % (11.9-15.9); URINE APPEARANCE CLEAR; URINE BILIRUBIN NEGATIVE (<2.0 mg/dL); URINE BLOOD NEGATIVE (NEGATIVE); URINE COLOR YELLOW; URINE GLUCOSE (UA) NEGATIVE (NEGATIVE); URINE KETONE TRACE (NEGATIVE); URINE LEUK ESTERASE NEGATIVE (NEGATIVE); URINE NITRITE NEGATIVE (NEGATIVE); URINE PROTEIN NEGATIVE (NEGATIVE); URINE UROBILINOGEN NEGATIVE mg/dL (0.2-1.0)
[2017-06-10] MEDS ORDERED: ONDANSETRON 4 MG/2 ML VIAL ONE (20:24)
[2017-06-10 20:31] LABS: INR 1.22 (0.82-1.09); PROTHROMBIN TIME (PATIENT) 13.8 SEC (9.7-13.0)
[2017-06-10 20:33] LABS: ACTIVATED PTT 29.7 SECONDS (26.9-34.4)
[2017-06-10 20:57] LABS: ALBUMIN 3.8 g/dl (3.4-5.0); ALK PHOS 77 U/L (45-117); ANION GAP 3 (8-16); BILIRUBIN,TOTAL 0.9 mg/dL (0.2-1.0); BLOOD UREA NITROGEN 10 mg/dL (7-18); CALCIUM 9.1 mg/dL (8.5-10.1); CHLORIDE 109 mmol/L (98-107); CO2 27 mmol/L (21-32); GLUCOSE,RANDOM 111 mg/dL (74-106); LIPASE 116 U/L (73-393); SGOT/AST 10 U/L (15-37); SGPT/ALT 16 U/L (12-78); SODIUM 139 mmol/L (136-145); TOT PROT 6.7 g/dl (6.4-8.2)
--- NOTE | 2017-06-10 21:32 | PDOC ---
Attending Attestation - Resident Resident Name: Toyin Sagastume - HPI HPI: 06/10/17 21:31 67-year-old male who had 5 days of nausea vomiting diarrhea - Physicial Exam PE: 06/10/17 21:32 wnwd 67-year-old male. Head normocephalic/atraumatic. eyes toni eomi neck supple abd no rebound,no guarding cvs rrr s1s2 lungs cta b/l ext no e/c/c neuro axox3,nofocal neuro deficits - Medical Decision Making 06/10/17 21:35 labs unremarkable pt'sGI doc is Dr Pratt
--- NOTE | 2017-06-11 12:03 | EKG ---
Test Reason : Blood Pressure : / mmHG Vent. Rate : 069 BPM Atrial Rate : 069 BPM P-R Int : 130 ms QRS Dur : 074 ms QT Int : 432 ms P-R-T Axes : 041 070 040 degrees QTc Int : 462 ms NORMAL SINUS RHYTHM NORMAL ECG WHEN COMPARED WITH ECG OF 22-MAY-2017 10:56, NO SIGNIFICANT CHANGE WAS FOUND Confirmed by ZEKE VALDEZ MD ([id number]) on 06/11/2017 12:03:11 PM Referred By: Confirmed By:ZEKE VALDEZ MD
== END 2017-06-10 22:21 | disposition home or self-care (01) ==
LOC: JER 17:30
PROC: 3E033GC Introduction of Other Therapeutic Substance into Peripheral Vein, Percutaneous Approach (ICD-10-PCS; principal; 2017-06-10)
DX: R10.84 Generalized abdominal pain (principal); I48.91 Unspecified atrial fibrillation; Z79.01 Long term (current) use of anticoagulants; J45.909 Unspecified asthma, uncomplicated; E78.5 Hyperlipidemia, unspecified; G47.00 Insomnia, unspecified; G25.81 Restless legs syndrome; Z87.891 Personal history of nicotine dependence
CPT/HCPCS: 36415; 80053; 81003; 82248; 83690; 85025; 85610; 85730; 93005; 93010; 96374; 99285-25; J7030

== ENCOUNTER 2017-06-23 13:00 | Emergency (ER) | payer OTHER, BC ==
[2017-06-23 13:43] VITALS: TEMP 97.5; BMI 23.0
[2017-06-23] MEDS ORDERED: ONDANSETRON 4 MG/2 ML VIAL IVPUSH ONE (14:16)
[2017-06-23] MEDS ORDERED: PANTOPRAZOLE SODIUM 40 MG in SODIUM CHLORIDE 100 ML IVPB ONE (14:16)
[2017-06-23] MEDS ORDERED: SODIUM CHLORIDE 1,000 ML IV STA (14:16)
[2017-06-23] MEDS ORDERED: PANTOPRAZOLE SODIUM 40 MG/100 ML BAG IVPB ONE (14:20)
[2017-06-23] MEDS ORDERED: ONDANSETRON 4 MG/2 ML VIAL ONE (14:21)
[2017-06-23 14:34] LABS: BASO % 0.5 % (0-2.0); EOS % 2.8 % (0-4.5); HEMATOCRIT 40.3 % (35.4-49); HEMOGLOBIN 13.7 GM/dL (11.7-16.9); LYMPH % 23.4 % (8-40); MCH 31.8 pg (25.7-33.7); MCHC 33.9 g/dl (32.0-35.9); MEAN CELL VOLUME 93.8 fl (80-96); MEAN PLT VOLUME 7.3 fl (7.5-11.1); MONO % 10.1 % (3.8-10.2); NEUT % 63.2 % (42.8-82.8); PLATELET COUNT 246 K/MM3 (134-434); RBC 4.29 M/mm3 (4.00-5.60); RDW 13.6 % (11.9-15.9); WHITE BLOOD COUNT 6.4 K/mm3 (4.0-10.0)
[2017-06-23 15:06] LABS: ALBUMIN 3.5 g/dl (3.4-5.0); ANION GAP 7 (8-16); BLOOD UREA NITROGEN 11 mg/dL (7-18); CHLORIDE 109 mmol/L (98-107); CO2 24 mmol/L (21-32); GLUCOSE,RANDOM 82 mg/dL (74-106); LIPASE 75 U/L (73-393); SGPT/ALT 19 U/L (12-78); SODIUM 140 mmol/L (136-145)
[2017-06-23 15:12] LABS: ALK PHOS 77 U/L (45-117); BILIRUBIN,TOTAL 0.8 mg/dL (0.2-1.0); TOT PROT 6.4 g/dl (6.4-8.2)
[2017-06-23 15:13] LABS: MAGNESIUM 2.4 mg/dL (1.8-2.4); POTASSIUM 4.2 mmol/L (3.5-5.1); SGOT/AST 16 U/L (15-37)
--- NOTE | 2017-06-23 16:36 | PDOC ---
History of Present Illness - General Chief Complaint: Pain Stated Complaint: ABD PAIN, NAUSEA Time Seen by Provider: 06/23/17 13:38 History Source: Patient Exam Limitations: No Limitations - History of Present Illness Travel History: No Initial Comments: 06/23/17 16:01 67-year-old male presents to the ED for evaluation of epigastric pain which he describes a cramping pressure associated with nausea. Patient states if he eats he feels as if he has to vomit and so has had decreased appetite over the past few days. Patient states 2 weeks ago similar symptoms and had workup including CT was negative findings. Patient is followed by Dr. Pratt whose he had endoscopy done with 3 months ago and was told to take probiotics. Patient states is on no anti-emetics or antacids presently. Patient denies drug or alcohol use or smoking history Timing/Duration: reports: constant Quality: reports: moderate, cramping Abdominal Pain Onset Location: reports: epigastric Pain Radiation: reports: no radiation Activities at Onset: reports: none Aggravating Factors: improves with: None Alleviating Factors: improves with: None Past History - Travel Traveled outside of the country in the last 30 days: No - Past Medical History Allergies/Adverse Reactions: Allergies Allergy/AdvReac Type Severity Reaction Status Date / Time amoxicillin Allergy Verified 06/10/17 18:00 morphine AdvReac Severe Vomiting Verified 06/10/17 18:00 oxycodone AdvReac Severe Vomiting Verified 06/10/17 18:00 methylprednisolone AdvReac Mild Itching Verified 06/10/17 18:00 [From Solu-Medrol] Home Medications: Ambulatory Orders Albuterol Sulfate 2.5 mg IH DAILY 05/22/17 Apixaban [Eliquis] 5 mg PO BID 05/22/17 Atorvastatin Ca [Lipitor] 10 mg PO DAILY 05/22/17 Metoclopramide HCl 10 mg PO TID 05/22/17 Metoprolol Succinate 25 mg PO DAILY 05/22/17 Roflumilast [Daliresp] 500 mcg PO DAILY 05/22/17 Tiotropium [place] [Spiriva] 1 inh IH DAILY 05/22/17 Zolpidem Tartrate [Ambien Cr] 12.5 mg PO HS 05/22/17 Lipase/Protease/Amylase [Kaylen Valiente 36,000 Units Capsule] 1 cap PO TIDCM #90 capsule. 05/24/17 Polyethylene Glycol 3350 [Miralax 119 gm Btl -] 17 gm PO DAILY 30 Days bottle 05/24/17 Simethicone Liquid [Mylicon Liquid -] 40 mg PO QID #1 bottle 06/10/17 Pantoprazole Sodium [Protonix] 40 mg PO DAILY #30 tablet. 06/23/17 Anemia: No Asthma: No Cancer: No Cardiac Disorders: Yes (a fib) CVA: No COPD: Yes (HX OF PNEUMONIA) CHF: No Dementia: No Diabetes: No GI Disorders: Yes (COLON POLYPS) Disorders: No HTN: No Hypercholesterolemia: Yes Liver Disease: No Seizures: No Thyroid Disease: No - Surgical History Abdominal Surgery: Yes (LT INGUINAL AND UMBILICAL) Appendectomy: No Cardiac Surgery: No Cholecystectomy: No Lung Surgery: No Neurologic Surgery: No Orthopedic Surgery: Yes (RT ROTATOR CUFF SHOULDER) - Immunization History Immunization Up to Date: Yes - Suicide/Smoking/Psychosocial Hx Smoking History: Never smoked Have you smoked in the past 12 months: No If you are a former smoker, when did you quit?: 1987 Information on smoking cessation initiated: No Hx Alcohol Use: No Drug/Substance Use Hx: No Substance Use Type: None Hx Substance Use Treatment: No Patient Lives Alone: No Lives with/in: spouse/SO Review of Systems - Review of Systems Able to Perform ROS?: No Constitutional: No: Symptoms Reported HEENTM: No: Symptoms Reported Respiratory: No: Symptoms reported Cardiac (ROS): No: Symptoms Reported ABD/GI: Yes: Nausea, Vomiting, Abdominal cramping : No: Symptoms Reported Musculoskeletal: No: Symptoms Reported Integumentary: No: Symptoms Reported Neurological: No: Symptoms reported *Physical Exam - Vital Signs Last Vital Signs Temp Pulse Resp BP Pulse Ox 97.5 F L 69 18 131/78 97 06/23/17 13:35 06/23/17 13:35 06/23/17 13:35 06/23/17 13:35 06/23/17 13:35 - Physical Exam General Appearance: Yes: Nourished, Appropriately Dressed. No: Apparent Distress HEENT: positive: KAYLEEN, TMs Normal, Pharynx Normal. negative: Pale Conjunctivae Neck: positive: Supple Respiratory/Chest: positive: Lungs Clear, Normal Breath Sounds. negative: Respiratory Distress, Accessory Muscle Use Cardiovascular: positive: Regular Rhythm, Regular Rate. negative: Murmur Gastrointestinal/Abdominal: positive: Normal Bowel Sounds, Soft, Tenderness ( epigastric). negative: Distended, Guarding, Rebound, Hernia, Mass Musculoskeletal: negative: CVA Tenderness Extremity: positive: Normal Capillary Refill Integumentary: positive: Normal Color, Warm, Moist Neurologic: positive: Motor Strength 5/5 (ambulatory) Heart Score/ECG Review - ECG Intrepretation Rhythm: Regular Rhythm (rate 72. intervals are reg. no st depression/elevation) ED Treatment Course - LABORATORY CBC & Chemistry Diagram: 06/23/17 14:00 06/23/17 14:00 - ADDITIONAL ORDERS Additional order review: Laboratory Results 06/23/17 14:00 Sodium 140 Potassium 4.2 Chloride 109 H Carbon Dioxide 24 Anion Gap 7 L BUN 11 Creatinine 1.0 Creat Clearance w eGFR > 60 Random Glucose 82 D Calcium 9.0 Magnesium 2.4 Total Bilirubin 0.8 AST 16 D ALT 19 Alkaline Phosphatase 77 Creatine Kinase 64 Troponin I < 0.02 Total Protein 6.4 Albumin 3.5 Lipase 75 06/23/17 14:00 RBC 4.29 MCV 93.8 MCHC 33.9 RDW 13.6 MPV 7.3 L Neutrophils % 63.2 Lymphocytes % 23.4 Monocytes % 10.1 Eosinophils % 2.8 Basophils % 0.5 - Medications Given in the ED: ED Medications Discontinued Medications Generic Name Dose Route Start Last Admin Trade Name Freq PRN Reason Stop Dose Admin Pantoprazole Sodium 40 mg/ 100 mls @ 200 mls/hr 06/23/17 14:16 06/23/17 14:30 Sodium Chloride IVPB 06/23/17 14:45 200 mls/hr ONCE ONE Administration Sodium Chloride 1,000 mls @ 1,000 mls/hr 06/23/17 14:16 06/23/17 14:30 Normal Saline - IV 06/23/17 15:15 1,000 mls/hr ASDIR STA Administration Ondansetron HCl 4 mg 06/23/17 14:16 06/23/17 14:30 Zofran Injection IVPUSH 06/23/17 14:17 4 mg ONCE ONE Administration Medical Decision Making - Medical Decision Making 06/23/17 16:03 Pt with epigastric pressure/cramping for the past 5 days intermittently. Patient on exam have reproducible epigastric pain without right upper quadrant or left upper quadrant discomfort. Patient ordered for cardiac profile, EKG, CBC , comp, lipase, mag IV fluids, Protonix and Zofran. Patient does have history of A. fib which was recently diagnosed earlier this year 06/23/17 16:45 Laboratory Tests 06/23/17 06/23/17 14:00 14:00 WBC 6.4 Hgb 13.7 Hct 40.3 Plt Count 246 Neutrophils % 63.2 Sodium 140 Potassium 4.2 Chloride 109 H Carbon Dioxide 24 Anion Gap 7 L BUN 11 Creatinine 1.0 Creat Clearance w eGFR > 60 Random Glucose 82 D Calcium 9.0 Magnesium 2.4 Total Bilirubin 0.8 AST 16 D ALT 19 Alkaline Phosphatase 77 Creatine Kinase 64 Troponin I < 0.02 Total Protein 6.4 Albumin 3.5 Lipase 75 Patient states feeling better. Patient be discharged w/ Protonix with recommendations to notify Dr. Pratt of today's visit. *DC/Admit/Observation/Transfer Diagnosis at time of Disposition: Abdominal pain, Nausea and vomiting - Discharge Dispostion Disposition: HOME Condition at time of disposition: Improved - Prescriptions Prescriptions: Pantoprazole Sodium [Protonix] 40 mg PO DAILY #30 tablet.dr - Referrals Referrals: Dm Castillo MD [Primary Care Provider] - Robert Pratt MD [Staff Physician] - - Patient Instructions Printed Discharge Instructions: DI for Epigastric Pain Additional Instructions: Please take Protonix as prescribed until you follow up with Dr. Pratt and discuss today's visit. Please return to the ED at any given time if his symptoms worsen - Post Discharge Activity
[2017-06-23 16:38] LABS: URINE APPEARANCE CLEAR; URINE BILIRUBIN NEGATIVE (<2.0 mg/dL); URINE COLOR LTYELLOW; URINE GLUCOSE (UA) NEGATIVE (NEGATIVE); URINE KETONE NEGATIVE (NEGATIVE); URINE LEUK ESTERASE NEGATIVE (NEGATIVE); URINE NITRITE NEGATIVE (NEGATIVE); URINE PROTEIN NEGATIVE (NEGATIVE); URINE UROBILINOGEN NEGATIVE mg/dL (0.2-1.0)
[2017-06-23 17:28] VITALS: BP 126/72; PULSE 66
--- NOTE | 2017-06-24 10:08 | EKG ---
Test Reason : Blood Pressure : / mmHG Vent. Rate : 070 BPM Atrial Rate : 070 BPM P-R Int : 134 ms QRS Dur : 074 ms QT Int : 422 ms P-R-T Axes : 007 064 042 degrees QTc Int : 455 ms NORMAL SINUS RHYTHM NONSPECIFIC T WAVE ABNORMALITY ABNORMAL ECG WHEN COMPARED WITH ECG OF 10-JUN-2017 21:01, NO SIGNIFICANT CHANGE WAS FOUND Confirmed by MD Steve, Timoteo ([id number]) on 06/24/2017 10:07:53 AM Referred By: Confirmed By:Timoteo Wilson MD
== END 2017-06-23 17:28 | disposition home or self-care (01) ==
LOC: JER 13:00
PROC: 3E033GC Introduction of Other Therapeutic Substance into Peripheral Vein, Percutaneous Approach (ICD-10-PCS; principal; 2017-06-23)
PROC: 3E033GC Introduction of Other Therapeutic Substance into Peripheral Vein, Percutaneous Approach (ICD-10-PCS; 2017-06-23)
DX: R10.13 Epigastric pain (principal); I48.91 Unspecified atrial fibrillation; Z79.01 Long term (current) use of anticoagulants; E78.00 Pure hypercholesterolemia, unspecified; Z87.01 Personal history of pneumonia (recurrent); Z86.010 Personal history of colon polyps
CPT/HCPCS: 36415; 80053; 81003; 82550; 83690; 83735; 84484; 85025; 93005; 93010; 96365; 96375; 99283-25; J7030

== ENCOUNTER 2017-07-21 14:56 | Observation (INO) | payer OTHER, BC ==
--- NOTE | 2017-07-21 15:16 | PDOC ---
Rapid Medical Evaluation Time Seen by Provider: 07/21/17 15:10 Medical Evaluation: Allergies Allergy/AdvReac Type Severity Reaction Status Date / Time amoxicillin Allergy Verified 07/21/17 15:10 morphine AdvReac Severe Vomiting Verified 07/21/17 15:10 oxycodone AdvReac Severe Vomiting Verified 07/21/17 15:10 methylprednisolone AdvReac Mild Itching Verified 07/21/17 15:10 [From Solu-Medrol] 07/21/17 15:10 I have performed a brief in-person evaluation of this patient. The patient presents with a chief complaint of: sob and n/v/ dry heaves worsened this AM.Symptoms X 4 months and treated by Dr Castillo 2 days ago last visit there. Dr Santa MEYER, Dr Langstontic Card. "the only thing that fixes this is Zofran IV" . Has been to this ER 4 times this year for same. Pertinent physical exam findings: Pale , Tachypneic and shaky. Abd tender but no guarding I have ordered the following: CBC, CMP, Lipase, UA, IV insert/ Zofran 4mg IVP The patient will proceed to the ED for further evaluation 07/21/17 15:17
[2017-07-21] MEDS ORDERED: ONDANSETRON 4 MG/2 ML VIAL IVPUSH ONE ×2 (15:17→21:00)
--- NOTE | 2017-07-21 15:55 | PDOC ---
History of Present Illness - General Chief Complaint: Pain, Acute Stated Complaint: ABD PAIN Time Seen by Provider: 07/21/17 15:10 - History of Present Illness Initial Comments: 07/21/17 15:55 Mr. Harris is a 67 yo male w/ pmh COPD, HLD, fungal esophagitis, afib (on eliquis), restless leg syndrom, chronic abdominal pain (on Creon, Flagyl, Protonix, and Reglan), and insomnia who presents complaining of 1 day history of nausea and dry heaving. He also reports he has recently had increased "tightness" with his breathing. The patient denies chest pain, shortness of breath, headache and dizziness. Denies fever, chills, nausea, vomit, diarrhea and constipation. Denies dysuria, frequency, urgency and hematuria. Allergies: Amoxicillin, morphine, oxycodone, methylprednisolone. Past History - Past Medical History Allergies/Adverse Reactions: Allergies Allergy/AdvReac Type Severity Reaction Status Date / Time amoxicillin Allergy Verified 07/21/17 15:10 morphine AdvReac Severe Vomiting Verified 07/21/17 15:10 oxycodone AdvReac Severe Vomiting Verified 07/21/17 15:10 methylprednisolone AdvReac Mild Itching Verified 07/21/17 15:10 [facility] Home Medications: Ambulatory Orders Albuterol Sulfate 2.5 mg IH DAILY 05/22/17 Apixaban [Eliquis] 5 mg PO BID 05/22/17 Atorvastatin Ca [Lipitor] 10 mg PO DAILY 05/22/17 Metoclopramide HCl 10 mg PO TID 05/22/17 Metoprolol Succinate 25 mg PO DAILY 05/22/17 Roflumilast [Daliresp] 500 mcg PO DAILY 05/22/17 Tiotropium [place] [Spiriva] 1 inh IH DAILY 05/22/17 Zolpidem Tartrate [Ambien Cr] 12.5 mg PO HS 05/22/17 Lipase/Protease/Amylase [Kaylen Valiente 36,000 Units Capsule] 1 cap PO TIDCM #90 capsule. 05/24/17 Polyethylene Glycol 3350 [Miralax 119 gm Btl -] 17 gm PO DAILY 30 Days bottle 05/24/17 Simethicone Liquid [Mylicon Liquid -] 40 mg PO QID #1 bottle 06/10/17 Pantoprazole Sodium [Protonix] 40 mg PO DAILY #30 tablet. 06/23/17 Anemia: No Asthma: No Cancer: No Cardiac Disorders: Yes (a fib) CVA: No COPD: Yes (HX OF PNEUMONIA) CHF: No Dementia: No Diabetes: No GI Disorders: Yes (COLON POLYPS) Disorders: No HTN: No Hypercholesterolemia: Yes Liver Disease: No Seizures: No Thyroid Disease: No - Surgical History Abdominal Surgery: Yes (LT INGUINAL AND UMBILICAL) Appendectomy: No Cardiac Surgery: No Cholecystectomy: No Lung Surgery: No Neurologic Surgery: No Orthopedic Surgery: Yes (RT ROTATOR CUFF SHOULDER) - Immunization History Immunization Up to Date: Yes - Suicide/Smoking/Psychosocial Hx Smoking History: Former smoker Have you smoked in the past 12 months: No If you are a former smoker, when did you quit?: 1987 Information on smoking cessation initiated: No Hx Alcohol Use: No Drug/Substance Use Hx: No Substance Use Type: None Hx Substance Use Treatment: No Review of Systems - Review of Systems Comments:: 07/21/17 15:55 GENERAL/CONSTITUTIONAL: No fever or chills. No weakness. HEAD, EYES, EARS, NOSE AND THROAT: No change in vision. No ear pain or discharge. No sore throat. CARDIOVASCULAR: No chest pain or shortness of breath RESPIRATORY: No cough, wheezing, or hemoptysis. GASTROINTESTINAL: +Nausea with dry heaving as described. No diarrhea or constipation. GENITOURINARY: No dysuria, frequency, or change in urination. MUSCULOSKELETAL: No joint or muscle swelling or pain. No neck or back pain. SKIN: No rash NEUROLOGIC: No headache, vertigo, loss of consciousness, or change in strength/ sensation. ENDOCRINE: No increased thirst. No abnormal weight change HEMATOLOGIC/LYMPHATIC: No anemia, easy bleeding, or history of blood clots. ALLERGIC/IMMUNOLOGIC: No hives or skin allergy. *Physical Exam - Vital Signs Last Vital Signs Temp Pulse Resp BP Pulse Ox 97.4 F L 83 19 108/59 97 07/21/17 15:10 07/21/17 15:10 07/21/17 15:10 07/21/17 15:10 07/21/17 15:10 - Physical Exam Comments: 07/21/17 15:55 GENERAL: Awake, alert, and fully oriented, in no acute distress HEAD: No signs of trauma, normocephalic, atraumatic EYES: PERRLA, EOMI, sclera anicteric, conjunctiva clear ENT: Auricles normal inspection, hearing grossly normal, nares patent, oropharynx clear without exudates. Moist mucosa NECK: Normal ROM, supple, no lymphadenopathy, JVD, or masses LUNGS: No distress, speaks full sentences, clear to auscultation bilaterally HEART: Regular rate and rhythm, normal S1 and S2, no murmurs, rubs or gallops, peripheral pulses normal and equal bilaterally. ABDOMEN: Soft, nontender, normoactive bowel sounds. No guarding, no rebound. No masses EXTREMITIES: Normal inspection, Normal range of motion, no edema. No clubbing or cyanosis. NEUROLOGICAL: Cranial nerves II through XII grossly intact. Normal speech, normal gait, no focal sensorimotor deficits SKIN: Warm, Dry, normal turgor, no rashes or lesions noted. ED Treatment Course - LABORATORY CBC & Chemistry Diagram: 07/21/17 16:51 07/21/17 16:51 Medical Decision Making - Medical Decision Making 07/21/17 18:30 Mr. Harris is a 67 yo male w/ pmh as described who presents for evaluation of nausea/vomiting as described under direction of PCP for admission for GI workup. Labs grossly unconcerning as below, bringing patient in for evaluation for GI follow-up for evaluation of etiology of chronic symptoms. Duoneb given for symptomatic relief of chest tightness with some relief from symptoms. Laboratory Results - last 24 hr 07/21/17 07/21/17 07/21/17 16:51 16:51 16:51 WBC 8.6 D RBC 4.21 Hgb 13.0 Hct 39.1 MCV 93.0 MCH 30.8 MCHC 33.1 RDW 13.4 Plt Count 337 D MPV 7.4 L Absolute Neuts (auto) 6.3 Neutrophils % 73.8 Lymphocytes % 14.8 D Monocytes % 9.8 Eosinophils % 1.2 Basophils % 0.4 Nucleated RBC % 0 Sodium 143 Potassium 3.5 Chloride 110 H Carbon Dioxide 26 Anion Gap 7 L BUN 7 D Creatinine 0.8 Creat Clearance w eGFR > 60 Random Glucose 92 Calcium 9.2 Total Bilirubin 0.3 D AST 10 L D ALT 19 Alkaline Phosphatase 82 Creatine Kinase 58 Troponin I < 0.02 Total Protein 6.3 L Albumin 3.3 L Lipase 72 L 07/21/17 18:33 *DC/Admit/Observation/Transfer Diagnosis at time of Disposition: Nausea & vomiting Qualifiers: Vomiting type: unspecified Vomiting Intractability: unspecified Qualified Code( s): R11.2 - Nausea with vomiting, unspecified - Discharge Dispostion Decision to Admit order: Yes - Referrals Referrals: Dm Castillo MD [Primary Care Provider] - - Patient Instructions - Post Discharge Activity
--- NOTE | 2017-07-21 16:37 | PDOC ---
Attending Attestation - Resident Resident Name: Sebastian Mills - ED Attending Attestation I have performed the following: I have examined & evaluated the patient, The case was reviewed & discussed with the resident, I agree w/resident's findings & plan, Exceptions are as noted - HPI HPI: 07/21/17 16:36 67 year old male with history of hyperlipidemia, COPD, atrial fibrillation, chronic abdominal pain presents with acute on chronic abdominal pain. Patient reports that he has these chronic flareups of his upper abdominal pain. He's been under investigation including endoscopy and colonoscopy by heel cementer machine Dr. Pratt. He has been initiated on Creon and other GI medications for states it is unclear what the etiology is. Unclear if it is associated with food but denies any fevers. States that IV Zofran typically helps with the symptoms. The patient had visited his primary care physician for an acute flareup the patient was sent to the ED for admission given persistent pain and nausea. - Physicial Exam PE: 07/21/17 16:36 GENERAL: Awake, alert, and fully oriented, in no acute distress. HEAD: No signs of trauma EYES: EOMI, sclera anicteric, conjunctiva clear ENT: Auricles normal inspection, hearing grossly normal, nares patent NECK: Normal ROM, supple HEART: Regular rate and rhythm, normal S1 and S2, no murmurs, rubs or gallops ABDOMEN: Soft, TTP epigastric. No guarding, no rebound. No masses EXTREMITIES: Normal range of motion, no edema. No clubbing or cyanosis. No cords, erythema, or tenderness NEUROLOGICAL: Cranial nerves II through XII grossly intact. Normal speech SKIN: Warm, Dry, normal turgor, no rashes or lesions noted. - Medical Decision Making 07/21/17 16:36 Vital Signs Temp Pulse Resp BP Pulse Ox 97.4 F L 83 19 108/59 97 07/21/17 15:10 07/21/17 15:10 07/21/17 15:10 07/21/17 15:10 07/21/17 15:10 The patient is presenting with acute on chronic abdominal pain. Will obtain labs and provide IV zofran and admit the patient to the hospital. Heart Score/ECG Review #1 ECG reviewed & interpreted by me at: 16:50 07/21/17 17:39 NSR 68, no std/avery, +LVH, normal axis, TWI V3-V4, QTC 463 msec
[2017-07-21] MEDS ORDERED: ONDANSETRON 4 MG/2 ML VIAL ONE ×3 (16:43→22:46)
[2017-07-21 17:19] LABS: BASO % 0.4 % (0-2.0); EOS % 1.2 % (0-4.5); HEMATOCRIT 39.1 % (35.4-49); LYMPH % 14.8 % (8-40); MCH 30.8 pg (25.7-33.7); MCHC 33.1 g/dl (32.0-35.9); MEAN PLT VOLUME 7.4 fl (7.5-11.1); MONO % 9.8 % (3.8-10.2); NEUT % 73.8 % (42.8-82.8); PLATELET COUNT 337 K/MM3 (134-434); RBC 4.21 M/mm3 (4.00-5.60); RDW 13.4 % (11.9-15.9); WHITE BLOOD COUNT 8.6 K/mm3 (4.0-10.0)
[2017-07-21 17:48] LABS: ALBUMIN 3.3 g/dl (3.4-5.0); ANION GAP 7 (8-16); BILIRUBIN,TOTAL 0.3 mg/dL (0.2-1.0); BLOOD UREA NITROGEN 7 mg/dL (7-18); CALCIUM 9.2 mg/dL (8.5-10.1); CHLORIDE 110 mmol/L (98-107); CO2 26 mmol/L (21-32); CREATININE 0.8 mg/dL (0.7-1.3); GLUCOSE,RANDOM 92 mg/dL (74-106); LIPASE 72 U/L (73-393); POTASSIUM 3.5 mmol/L (3.5-5.1); SGOT/AST 10 U/L (15-37); SGPT/ALT 19 U/L (12-78); SODIUM 143 mmol/L (136-145); TOT PROT 6.3 g/dl (6.4-8.2)
[2017-07-21 17:49] LABS: ALK PHOS 82 U/L (45-117)
[2017-07-21] MEDS ORDERED: ONDANSETRON 4 MG/2 ML VIAL IVPB ONE (18:16)
[2017-07-21] MEDS ORDERED: ACETAMINOPHEN 1000 MG/100 ML VIAL (NON FORMULARY) IVPB ONE (19:29)
[2017-07-21] MEDS ORDERED: ACETAMINOPHEN INJECTION 100 ML IVPB ONE (19:57)
--- NOTE | 2017-07-21 21:00 | HP ---
CHIEF COMPLAINT: nausea/vomiting PCP: Jonathan HISTORY OF PRESENT ILLNESS: This is a 67 year old male with a past medical history significant for diverticulosis, chronic abdominal pain and nausea who presented to the ED for worsening abdominal pain and nausea. Pt reports that his symptoms worsened yesterday but became unbearable today. He states that he thinks eating makes it better and reports that he is able to keep down food but when the nausea starts he has dry heaves and they don't stop. He also reports chronic cough which has been more frequent lately. ER course was notable for: (1) WBC 8.6 (2) K 3.5 Recent Travel: pt denies PAST MEDICAL HISTORY: COPD, fungal esophagitis, chronic abd pain, colon plyps, diverticulosis, Afib, restless leg syndrome PAST SURGICAL HISTORY: R rotator cuff repair L inguinal and umbilical hernia repairs Social History: Smoking: quit 1999 Alcohol: pt denies Drugs: pt denies, has Rx for medical marijuana Family History: mother age 70, pancreatic CA father age 79, PNA, [place] brother s/p lung CA age 53, in remission 2 other brothers and 2 sisters alive and well Allergies amoxicillin Allergy (Verified 07/21/17 15:10) morphine Adverse Reaction (Severe, Verified 07/21/17 15:10) Vomiting oxycodone Adverse Reaction (Severe, Verified 07/21/17 15:10) Vomiting methylprednisolone [From Solu-Medrol] Adverse Reaction (Mild, Verified 07/21/17 15:10) Itching HOME MEDICATIONS: 3 Medication Instructions Recorded Albuterol Sulfate 2.5 mg NEB BID 05/22/17 Atorvastatin Ca [Lipitor] 10 mg PO HS 05/22/17 Metoprolol Succinate 25 mg PO DAILY 05/22/17 Roflumilast [Daliresp] 500 mcg PO DAILY 05/22/17 Tiotropium [place] [Spiriva] 1 inh IH DAILY 05/22/17 Zolpidem Tartrate [Ambien Cr] 12.5 mg PO HS 05/22/17 Edoxaban Tosylate [Savaysa] 60 mg PO DAILY 07/21/17 Fluticasone/Salmeterol [Advair 1 each IH BID 07/21/17 250-50 Diskus] REVIEW OF SYSTEMS CONSTITUTIONAL: Absent: fever, chills, diaphoresis, generalized weakness, malaise, loss of appetite, weight change HEENT: Absent: rhinorrhea, nasal congestion, throat pain, throat swelling, difficulty swallowing, mouth swelling, ear pain, eye pain, visual changes CARDIOVASCULAR: Absent: chest pain, syncope, palpitations, irregular heart rate, lightheadedness , peripheral edema RESPIRATORY: Absent: cough, shortness of breath, dyspnea with exertion, orthopnea, wheezing, stridor, hemoptysis GASTROINTESTINAL: Present: abdominal pain, nausea, vomiting Absent: abdominal distension, diarrhea, constipation, melena, hematochezia GENITOURINARY: Absent: dysuria, frequency, urgency, hesitancy, hematuria, flank pain, genital pain MUSCULOSKELETAL: Absent: myalgia, arthralgia, joint swelling, back pain, neck pain SKIN: Absent: rash, itching, pallor HEMATOLOGIC/IMMUNOLOGIC: Absent: easy bleeding, easy bruising, lymphadenopathy, frequent infections ENDOCRINE: Absent: unexplained weight gain, unexplained weight loss, heat intolerance, cold intolerance NEUROLOGIC: Absent: headache, focal weakness or paresthesias, dizziness, unsteady gait, seizure, mental status changes, bladder or bowel incontinence PSYCHIATRIC: Absent: anxiety, depression, suicidal or homicidal ideation, hallucinations. PHYSICAL EXAMINATION Vital Signs - 24 hr 3 07/21/17 15:10 Temperature 97.4 F L Pulse Rate 83 Respiratory 19 Rate Blood Pressure 108/59 O2 Sat by Pulse 97 Oximetry (%) GENERAL: Awake, alert, and fully oriented, in no acute distress. HEAD: Normal with no signs of trauma. EYES: Pupils equal, round and reactive to light, extraocular movements intact, sclera anicteric, conjunctiva clear. No lid lag. EARS, NOSE, THROAT: Ears normal, nares patent, oropharynx clear without exudates. Moist mucous membranes. NECK: Normal range of motion, supple without lymphadenopathy, JVD, or masses. LUNGS: Crackles right base, diminished all over but especially L base. No wheezes. No accessory muscle use. HEART: Regular rate and rhythm, normal S1 and S2 without murmur, rub or gallop. ABDOMEN: Soft, tender to palpation upper abdomen, not distended, normoactive bowel sounds, no guarding, no rebound, no masses. No hepatomegaly or splenomegaly. MUSCULOSKELETAL: Normal range of motion at all joints. No bony deformities or tenderness. No CVA tenderness. UPPER EXTREMITIES: 2+ pulses, warm, well-perfused. No cyanosis. No clubbing. No peripheral edema. LOWER EXTREMITIES: 2+ pulses, warm, well-perfused. No calf tenderness. No peripheral edema. NEUROLOGICAL: Cranial nerves II-XII intact. Normal speech. Normal gait. PSYCHIATRIC: Cooperative. Good eye contact. Appropriate mood and affect. SKIN: Warm, dry, normal turgor, no rashes or lesions noted, normal capillary refill. Laboratory Results - last 24 hr 3 07/21/17 07/21/17 07/21/17 16:51 16:51 16:51 WBC 8.6 D RBC 4.21 Hgb 13.0 Hct 39.1 MCV 93.0 MCH 30.8 MCHC 33.1 RDW 13.4 Plt Count 337 D MPV 7.4 L Absolute Neuts (auto) 6.3 Neutrophils % 73.8 Lymphocytes % 14.8 D Monocytes % 9.8 Eosinophils % 1.2 Basophils % 0.4 Nucleated RBC % 0 Sodium 143 Potassium 3.5 Chloride 110 H Carbon Dioxide 26 Anion Gap 7 L BUN 7 D Creatinine 0.8 Creat Clearance w eGFR > 60 Random Glucose 92 Calcium 9.2 Total Bilirubin 0.3 D AST 10 L D ALT 19 Alkaline Phosphatase 82 Creatine Kinase 58 Troponin I < 0.02 Total Protein 6.3 L Albumin 3.3 L Lipase 72 L ECG normal sinus rhythm vent rate 68, QTC 463, prolonged minimal voltage criteria for LVH nonspecific T wave abnormality Radiology Reports CXR portable IMPRESSION: Moderate COPD Reported By: Shola Vegas MD 07/21/17 [id number] ASSESSMENT/PLAN: 67yM with PMH COPD, fungal esophagitis, chronic abd pain, colon plyps, diverticulosis, Afib, restless leg syndrome presented to the ED with worsening abd pain, nausea and vomiting x 2 days. abdominal pain - pt s/p upper endoscopy / EGD and colonoscopy in March 2017, CT scan 2017 all unremarkable - multiple medication failures at home including creon, miralax, mylicon, protonix, reglan po and zofran po - pt states the only thing that helps is IV zofran, given setting of mildly prolonged QTC will have to monitor ECG with use of same - GI consult - clear liquid diet borderline potassium - likely due to GI losses - will start NS with 20meq K, repeat bMP in am COPD - cont home meds - pulmonary consult Afib - home savaysa nonformulary, will change to formulary equivalent - cont metoprolol for rate control DVT PPX - heparin deferred at present; LOS expected less than 48h, reassess if exceeds FEN - NS c/ 20mEqKCl @ 100cc/hr - BMP in am - clear liquid diet as tolerated Dispo: pt currently requires further observation for management of his emergent condition. Visit type - Emergency Visit Emergency Visit: Yes ED Registration Date: 07/21/17 Care time: The patient presented to the Emergency Department on the above date and was hospitalized for further evaluation of their emergent condition. - New Patient This patient is new to me today: Yes Date on this admission: 07/21/17 - Critical Care Critical Care patient: Yes Hospitalist Screening - Colonoscopy Questionnaire Colonoscopy Questionnaire: Colonoscopy Questionnaire - Patient: 50 - 75 years old and never had a screening colonoscopy: No History of colon or rectal polyps, or CA: Yes History of IBD, Crohn's disease or UC: No History of abdominal radiation therapy as a child: No - Relative: 1 with colon or rectal CA, or polyps at age 60 or younger: No Colon or rectal CA diagnosed at age 45 or younger: No Multiple relatives with colon or rectal CA: No - Outcome: Screening Result: Positive Screen
[2017-07-21 23:04] VITALS: BMI 22.0
[2017-07-21] MEDS ORDERED: ZOLPIDEM TARTRATE 5 MG TABLET PO PRN (23:04)
[2017-07-21] MEDS: SODIUM CHLORIDE 0.9%/KCL 20 MEQ/1,000 ML INFUS.BAG IV SCH (23:41)
[2017-07-21] MEDS: ONDANSETRON 4 MG/2 ML VIAL IVPUSH PRN (23:44)
[2017-07-21] MEDS: ATORVASTATIN CA 10 MG TABLET (FP) PO SCH (23:44)
[2017-07-22] MEDS: ALBUTEROL SO4 0.083% IH SOL 2.5 MG/3 ML VIAL.NEB. NEB SCH ×6 (00:14→21:26)
[2017-07-22] MEDS ORDERED: ZOLPIDEM TARTRATE 5 MG TABLET PO ONE ×2 (01:01→01:15)
[2017-07-22] MEDS: ONDANSETRON 4 MG/2 ML VIAL IVPUSH PRN ×2 (05:44→11:32)
[2017-07-22 07:33] LABS: BASO % 0.5 % (0-2.0); EOS % 3.6 % (0-4.5); HEMATOCRIT 35.9 % (35.4-49); HEMOGLOBIN 12.2 GM/dL (11.7-16.9); LYMPH % 28.1 % (8-40); MCH 31.4 pg (25.7-33.7); MCHC 33.9 g/dl (32.0-35.9); MEAN CELL VOLUME 92.6 fl (80-96); MONO % 12.4 % (3.8-10.2); NEUT % 55.4 % (42.8-82.8); PLATELET COUNT 302 K/MM3 (134-434); RBC 3.88 M/mm3 (4.00-5.60); RDW 13.5 % (11.9-15.9); WHITE BLOOD COUNT 6.9 K/mm3 (4.0-10.0)
[2017-07-22 08:01] LABS: ANION GAP 6 (8-16); BLOOD UREA NITROGEN 5 mg/dL (7-18); CALCIUM 8.5 mg/dL (8.5-10.1); CHLORIDE 110 mmol/L (98-107); CO2 28 mmol/L (21-32); CREATININE 0.9 mg/dL (0.7-1.3); GLUCOSE,RANDOM 95 mg/dL (74-106); PHOSPHOROUS 3.7 mg/dL (2.5-4.9); POTASSIUM 3.9 mmol/L (3.5-5.1); SODIUM 144 mmol/L (136-145)
[2017-07-22 08:55] LABS: URINE APPEARANCE CLEAR; URINE BILIRUBIN NEGATIVE (<2.0 mg/dL); URINE BLOOD NEGATIVE (NEGATIVE); URINE COLOR YELLOW; URINE GLUCOSE (UA) NEGATIVE (NEGATIVE); URINE KETONE NEGATIVE (NEGATIVE); URINE LEUK ESTERASE NEGATIVE (NEGATIVE); URINE NITRITE NEGATIVE (NEGATIVE); URINE PROTEIN NEGATIVE (NEGATIVE); URINE UROBILINOGEN NEGATIVE mg/dL (0.2-1.0)
[2017-07-22] MEDS ORDERED: PT OWN MED DRAWER 7, Y5N ONE ×2 (11:28→22:47)
[2017-07-22] MEDS: TIOTROPIUM BROMIDE 18 MCG CAPSULES IH SCH (11:32)
[2017-07-22] MEDS: BUDESONIDE/FORMETEROL FUMARATE 80/4.5 mcg INHALER IH SCH ×3 (11:32→22:49)
[2017-07-22] MEDS: metoPROLOL SUCCINATE 25 MG TAB.SR.24H (FP) PO SCH (11:32)
[2017-07-22] MEDS: SODIUM CHLORIDE 0.9%/KCL 20 MEQ/1,000 ML INFUS.BAG IV SCH ×3 (11:34→22:50)
--- NOTE | 2017-07-22 13:16 | EKG ---
Test Reason : Blood Pressure : / mmHG Vent. Rate : 068 BPM Atrial Rate : 068 BPM P-R Int : 140 ms QRS Dur : 080 ms QT Int : 436 ms P-R-T Axes : 071 064 041 degrees QTc Int : 463 ms NORMAL SINUS RHYTHM MINIMAL VOLTAGE CRITERIA FOR LVH, MAY BE NORMAL VARIANT NONSPECIFIC T WAVE ABNORMALITY PROLONGED QT ABNORMAL ECG WHEN COMPARED WITH ECG OF 23-JUN-2017 13:44, NO SIGNIFICANT CHANGE WAS FOUND Confirmed by MD HEENA, KISHORE ([id number]) on 07/22/2017 1:15:43 PM Referred By: Confirmed By:KISHORE NAIK MD
[2017-07-22] MEDS ORDERED: ONDANSETRON 4 MG/2 ML VIAL IVPB STA (13:31)
--- NOTE | 2017-07-22 13:36 | PN ---
Progress Note, Physician Chief Complaint: Mr Harris says he is still having severe nausea and stomach pain. Unable to eat or drink secondary to this. No cp or sob. - Current Medication List Current Medications: Active Medications Albuterol Sulfate (Ventolin 0.083% Nebulizer Soln -) 1 amp NEB RQID [facility] Last Admin: 07/22/17 07:38 Dose: Not Given Atorvastatin Calcium (Lipitor -) 10 mg PO HS [facility] Last Admin: 07/21/17 23:44 Dose: 10 mg Budesonide/Formoterol Fumarate (Symbicort 80/4.5mcg -) 2 puff IH BID [facility] Last Admin: 07/22/17 11:33 Dose: Not Given Potassium Chloride/Sodium Chloride (Ns+20 Meq Kcl -) 20 meq in 1,000 mls @ 100 mls/hr IV ASDIR [facility] Last Admin: 07/22/17 11:34 Dose: 100 mls/hr Pantoprazole Sodium 40 mg/ (Sodium Chloride) 100 mls @ 200 mls/hr IVPB BID [facility] Metoclopramide HCl (Reglan Injection -) 10 mg IVPB Q8H [facility] Metoprolol Succinate (Toprol Xl -) 25 mg PO DAILY [facility] Last Admin: 07/22/17 11:32 Dose: 25 mg Non-Formulary Medication (Edoxaban Tosylate [Savaysa]) 60 mg PO DAILY [facility] Ondansetron HCl (Zofran Injection) 4 mg IVPB Q4H ST[facility] Stop: 07/22/17 13:32 Roflumilast (Daliresp -) 500 mcg PO DAILY [facility] Tiotropium [place] (Spiriva -) 1 puff IH DAILY [facility] Last Admin: 07/22/17 11:32 Dose: 1 puff Zolpidem Tartrate (Ambien -) 10 mg PO HS PRN PRN Reason: INSOMNIA - Objective Vital Signs: Vital Signs Temperature 36.5 C 07/22/17 06:25 Pulse Rate 68 07/22/17 06:25 Respiratory Rate 20 07/22/17 06:25 Blood Pressure 110/60 07/22/17 06:25 O2 Sat by Pulse Oximetry (%) 96 07/22/17 05:23 Constitutional: Yes: Well Nourished, Calm, Mild Distress Cardiovascular: Yes: Regular Rate and Rhythm. No: Gallop, Murmur, Rub Respiratory: Yes: Regular, CTA Bilaterally. No: Rales, Rhonchi, Wheezes Gastrointestinal: Yes: Normal Bowel Sounds, Soft. No: Distention, Tenderness Extremities: Yes: WNL Edema: No Labs: CBC, BMP 07/22/17 06:20 07/22/17 06:30 Problem List - Problems (1) IBS (irritable bowel syndrome) Assessment/Plan: -patient with intractable nausea and pain -Dr Pratt consulted -placed on IV reglan and protonix -monitor for improvemet -await GI recommendations Code(s): K58.9 - IRRITABLE BOWEL SYNDROME WITHOUT DIARRHEA Qualifiers: Irritable bowel syndrome type: without diarrhea Qualified Code(s): K58.9 - Irritable bowel syndrome without diarrhea (2) Afib Assessment/Plan: -currently in sinus rhythm -continue toprol xl Code(s): I48.91 - UNSPECIFIED ATRIAL FIBRILLATION Qualifiers: Atrial fibrillation type: paroxysmal Qualified Code(s): I48.0 - Paroxysmal atrial fibrillation (3) COPD (chronic obstructive pulmonary disease) Assessment/Plan: -not in exacerbation -continue home regimen Code(s): J44.9 - CHRONIC OBSTRUCTIVE PULMONARY DISEASE, UNSPECIFIED (4) Hyperlipidemia Assessment/Plan: -continue lipitor Code(s): E78.5 - HYPERLIPIDEMIA, UNSPECIFIED
[2017-07-22] MEDS ORDERED: PANTOPRAZOLE SODIUM 40 MG in SODIUM CHLORIDE 100 ML IVPB SCH (13:45)
[2017-07-22] MEDS ORDERED: METOCLOPRAMIDE HCL INJECTION 10 MG/2 ML VIAL IVPB SCH (13:45)
[2017-07-22] MEDS: ROFLUMILAST 500 MCG TABLET PO SCH (14:15)
[2017-07-22] MEDS ORDERED: ONDANSETRON 4 MG/2 ML VIAL IVPUSH ONE (16:15)
[2017-07-22] MEDS ORDERED: ONDANSETRON 4 MG/2 ML VIAL IVPUSH PRN (17:57)
--- NOTE | 2017-07-22 19:19 | CON.GI ---
Consult Consult Specialty:: GI Referred by:: Dr Castillo - History of Present Illness History of Present Illness: 67 y/o male with PMH of COPD was diagnosed to have gastroparesis since 2016 documented by abdnomal gastric emptying scan was admitted with intractable nause and vomiting. Patient had several EGD in the past by Dr Holder and myself with no structural abnormalitiy. Ct of the head was also normal - History Source History Provided By: Patient - Past Medical History Cardio/Vascular: Yes: Hyperlipdemia Pulmonary: Yes: COPD - Past Surgical History Past Surgical History: Yes: None - Alcohol/Substance Use Hx Alcohol Use: No History of Substance Use: reports: None - Smoking History Smoking history: Former smoker Have you smoked in the past 12 months: No If you are a former smoker, when did you quit?: 1987 - Social History Usual Living Arrangement: With Spouse ADL: Independent Occupation: Works in construction Home Medications - Allergies Allergies/Adverse Reactions: Allergies Allergy/AdvReac Type Severity Reaction Status Date / Time amoxicillin Allergy Verified 07/21/17 15:10 morphine AdvReac Severe Vomiting Verified 07/21/17 15:10 oxycodone AdvReac Severe Vomiting Verified 07/21/17 15:10 methylprednisolone AdvReac Mild Itching Verified 07/21/17 15:10 [From Solu-Medrol] - Home Medications Home Medications: Ambulatory Orders Albuterol Sulfate 2.5 mg NEB BID 05/22/17 Atorvastatin Ca [Lipitor] 10 mg PO HS 05/22/17 Metoprolol Succinate 25 mg PO DAILY 05/22/17 Roflumilast [Daliresp] 500 mcg PO DAILY 05/22/17 Tiotropium [place] [Spiriva] 1 inh IH DAILY 05/22/17 Zolpidem Tartrate [Ambien Cr] 12.5 mg PO HS 05/22/17 Edoxaban Tosylate [Savaysa] 60 mg PO DAILY 07/21/17 Fluticasone/Salmeterol [Advair 250-50 Diskus] 1 each IH BID 07/21/17 Family Disease History - Family Disease History Family Disease History: Heart Disease: Father, CA: Mother Physical Exam-GI Vital Signs: Vital Signs Temperature 97.9 F 07/22/17 14:00 Pulse Rate 67 07/22/17 14:00 Respiratory Rate 20 07/22/17 14:00 Blood Pressure 114/65 07/22/17 14:00 O2 Sat by Pulse Oximetry (%) 98 07/22/17 13:00 Constitutional: Yes: Well Nourished Eyes: Yes: Conjunctiva Clear HENT: Yes: Atraumatic Neck: Yes: Supple Cardiovascular: Yes: Regular Rate and Rhythm Respiratory: Yes: CTA Bilaterally ...Palpate: Yes: Soft, Tenderness, Epigastium. No: Firm/Rigid, Guarding, Hepatomegaly, Mass, Pulsatile Mass, Splenomegaly, Tenderness Labs: CBC, BMP 07/22/17 06:20 07/22/17 06:30 Problem List - Problems (1) Gastroparesis Assessment/Plan: severe R> small frequent meals, low fat, low fiber difficult to treat as patient does not imptove with Reglan and Zofran, will discontinue Reglan at this time and switch to compazine to avoid adverse effects Code(s): K31.84 - GASTROPARESIS
[2017-07-22] MEDS ORDERED: PROCHLORPERAZINE MALEATE 25 MG SUPP.RECT PR PRN (19:20)
[2017-07-22] MEDS: PANTOPRAZOLE SODIUM 40 MG VIAL IVPB SCH (22:27)
[2017-07-22] MEDS: ATORVASTATIN CA 10 MG TABLET (FP) PO SCH (22:27)
[2017-07-22] MEDS: ZOLPIDEM TARTRATE 5 MG TABLET PO PRN (22:30)
[2017-07-22] MEDS: ONDANSETRON 4 MG/2 ML VIAL IVPUSH SCH (22:31)
[2017-07-23] MEDS: ONDANSETRON 4 MG/2 ML VIAL IVPUSH SCH ×3 (03:55→09:34)
[2017-07-23] MEDS: SODIUM CHLORIDE 0.9%/KCL 20 MEQ/1,000 ML INFUS.BAG IV SCH ×3 (06:44→22:36)
[2017-07-23] MEDS ORDERED: ACETAMINOPHEN 325 MG TABLET (FP) PO ONE (06:45)
[2017-07-23 06:59] LABS: CHLORIDE 111 mmol/L (98-107); POTASSIUM 3.9 mmol/L (3.5-5.1); SODIUM 143 mmol/L (136-145)
[2017-07-23 07:31] LABS: BASO % 0.8 % (0-2.0); EOS % 3.1 % (0-4.5); HEMATOCRIT 35.7 % (35.4-49); HEMOGLOBIN 12.2 GM/dL (11.7-16.9); LYMPH % 20.8 % (8-40); MCH 31.6 pg (25.7-33.7); MCHC 34.2 g/dl (32.0-35.9); MEAN CELL VOLUME 92.4 fl (80-96); NEUT % 63.3 % (42.8-82.8); PLATELET COUNT 324 K/MM3 (134-434); RBC 3.87 M/mm3 (4.00-5.60); RDW 13.7 % (11.9-15.9); WHITE BLOOD COUNT 6.8 K/mm3 (4.0-10.0)
[2017-07-23 07:38] LABS: ALBUMIN 2.9 g/dl (3.4-5.0); ALK PHOS 76 U/L (45-117); ANION GAP 8 (8-16); BILIRUBIN,TOTAL 0.4 mg/dL (0.2-1.0); BLOOD UREA NITROGEN 3 mg/dL (7-18); CALCIUM 8.8 mg/dL (8.5-10.1); CO2 24 mmol/L (21-32); CREATININE 0.7 mg/dL (0.7-1.3); GLUCOSE,RANDOM 78 mg/dL (74-106); PHOSPHOROUS 3.4 mg/dL (2.5-4.9); SGOT/AST 11 U/L (15-37); SGPT/ALT 18 U/L (12-78); TOT PROT 5.5 g/dl (6.4-8.2)
[2017-07-23] MEDS ORDERED: PT OWN MED DRAWER 7, Y5N ONE ×2 (09:26→22:34)
[2017-07-23] MEDS: TIOTROPIUM BROMIDE 18 MCG CAPSULES IH SCH (09:29)
[2017-07-23] MEDS: PANTOPRAZOLE SODIUM 40 MG VIAL IVPB SCH ×2 (09:29→22:35)
[2017-07-23] MEDS: ROFLUMILAST 500 MCG TABLET PO SCH (09:29)
[2017-07-23] MEDS: metoPROLOL SUCCINATE 25 MG TAB.SR.24H (FP) PO SCH (09:31)
[2017-07-23] MEDS: BUDESONIDE/FORMETEROL FUMARATE 80/4.5 mcg INHALER IH SCH ×2 (09:31→22:35)
[2017-07-23] MEDS: PATIENT'S OWN MEDICATION (NON-FORMULARY) (Edoxaban Tosylate [Savaysa] 60 MG) PO SCH ×2 (13:05→13:06)
[2017-07-23] MEDS: APIXABAN 5 MG TABLET PO SCH ×2 (14:15→22:35)
--- NOTE | 2017-07-23 15:57 | PN ---
Progress Note, Physician Chief Complaint: Mr Harris still has severe nausea causing pain. No cp or sob. - Current Medication List Current Medications: Active Medications Albuterol Sulfate (Ventolin 0.083% Nebulizer Soln -) 1 amp NEB RQID [facility] Last Admin: 07/22/17 21:26 Dose: 1 amp Apixaban (Eliquis -) 5 mg PO BID [facility] Last Admin: 07/23/17 14:15 Dose: 5 mg Atorvastatin Calcium (Lipitor -) 10 mg PO HS [facility] Last Admin: 07/22/17 22:27 Dose: 10 mg Budesonide/Formoterol Fumarate (Symbicort 80/4.5mcg -) 2 puff IH BID [facility] Last Admin: 07/23/17 09:31 Dose: 2 inhaler Potassium Chloride/Sodium Chloride (Ns+20 Meq Kcl -) 20 meq in 1,000 mls @ 100 mls/hr IV ASDIR [facility] Last Admin: 07/23/17 06:44 Dose: 100 mls/hr Lorazepam (Ativan Injection -) 1 mg IVPUSH Q6H PRN PRN Reason: NAUSEA AND/OR VOMITING Last Admin: 07/23/17 14:53 Dose: 1 mg Metoprolol Succinate (Toprol Xl -) 25 mg PO DAILY [facility] Last Admin: 07/23/17 09:31 Dose: 25 mg Ondansetron HCl (Zofran Injection) 4 mg IVPUSH Q4H PRN PRN Reason: NAUSEA Pantoprazole Sodium (Protonix Iv) 40 mg IVPB BID [facility] Last Admin: 07/23/17 09:29 Dose: 40 mg Prochlorperazine Maleate (Compazine Suppository -) 25 mg OK DAILY PRN PRN Reason: NAUSEA AND/OR VOMITING Roflumilast (Daliresp -) 500 mcg PO DAILY [facility] Last Admin: 07/23/17 09:29 Dose: 500 mcg Tiotropium [place] (Spiriva -) 1 puff IH DAILY [facility] Last Admin: 07/23/17 09:29 Dose: 1 puff Zolpidem Tartrate (Ambien -) 10 mg PO HS PRN PRN Reason: INSOMNIA Last Admin: 07/22/17 22:30 Dose: 10 mg - Objective Vital Signs: Vital Signs Temperature 36.4 C 07/23/17 13:19 Pulse Rate 73 07/23/17 13:19 Respiratory Rate 18 07/23/17 13:19 Blood Pressure 114/67 07/23/17 13:19 O2 Sat by Pulse Oximetry (%) 99 07/23/17 13:00 Constitutional: Yes: Well Nourished, No Distress, Calm Cardiovascular: Yes: Regular Rate and Rhythm. No: Gallop, Murmur, Rub Respiratory: Yes: Regular, CTA Bilaterally. No: Rales, Rhonchi, Wheezes Gastrointestinal: Yes: Normal Bowel Sounds, Soft. No: Distention, Tenderness Extremities: Yes: WNL Edema: No Labs: CBC, BMP 07/23/17 06:00 07/23/17 06:00 Problem List - Problems (1) IBS (irritable bowel syndrome) Code(s): K58.9 - IRRITABLE BOWEL SYNDROME WITHOUT DIARRHEA Qualifiers: Irritable bowel syndrome type: without diarrhea Qualified Code(s): K58.9 - Irritable bowel syndrome without diarrhea (2) Afib Code(s): I48.91 - UNSPECIFIED ATRIAL FIBRILLATION Qualifiers: Atrial fibrillation type: paroxysmal Qualified Code(s): I48.0 - Paroxysmal atrial fibrillation (3) COPD (chronic obstructive pulmonary disease) Code(s): J44.9 - CHRONIC OBSTRUCTIVE PULMONARY DISEASE, UNSPECIFIED (4) Hyperlipidemia Code(s): E78.5 - HYPERLIPIDEMIA, UNSPECIFIED Assessment/Plan (1) IBS (irritable bowel syndrome) Assessment/Plan -still with severe nausea -not responsive to IV reglan -changed to compazine per GI -continue IV protonix -will trial prn ativan as well for nausea and pain Code(s): K58.9 - IRRITABLE BOWEL SYNDROME WITHOUT DIARRHEA Qualifiers: Irritable bowel syndrome type: without diarrhea Qualified Code(s): K58.9 - Irritable bowel syndrome without diarrhea (2) Afib Assessment/Plan: -currently in sinus rhythm -continue toprol xl Code(s): I48.91 - UNSPECIFIED ATRIAL FIBRILLATION Qualifiers: Atrial fibrillation type: paroxysmal Qualified Code(s): I48.0 - Paroxysmal atrial fibrillation (3) COPD (chronic obstructive pulmonary disease) Assessment/Plan: -not in exacerbation -continue home regimen Code(s): J44.9 - CHRONIC OBSTRUCTIVE PULMONARY DISEASE, UNSPECIFIED (4) Hyperlipidemia Assessment/Plan: -continue lipitor Code(s): E78.5 - HYPERLIPIDEMIA, UNSPECIFIED
[2017-07-23] MEDS: ALBUTEROL SO4 0.083% IH SOL 2.5 MG/3 ML VIAL.NEB. NEB SCH ×2 (17:10→22:35)
--- NOTE | 2017-07-23 18:02 | PN ---
GI Progress Note Subjective: abdominal pain, nausea and vomiting improved - Objective Vital Signs: Vital Signs Temperature 97.7 F 07/23/17 17:39 Pulse Rate 68 07/23/17 17:39 Respiratory Rate 20 07/23/17 17:39 Blood Pressure 118/73 07/23/17 17:39 O2 Sat by Pulse Oximetry (%) 99 07/23/17 13:00 Constitutional: Well Nourished Eyes: Yes: Conjunctiva Clear, Occular Prosthesis Neck: Yes: Supple Cardiovascular: Yes: Regular Rate and Rhythm Respiratory: Yes: Regular ...Palpate: Yes: Soft. No: Firm/Rigid, Guarding, Hepatomegaly, Mass, Pulsatile Mass, Splenomegaly, Tenderness, Tenderness, Epigastium Labs: CBC, BMP 07/23/17 06:00 07/23/17 06:00 Problem List - Problems (1) Gastroparesis Assessment/Plan: R> continue compazine and zofran, Protonix made aware to follow-up Code(s): K31.84 - GASTROPARESIS
[2017-07-23] MEDS: ZOLPIDEM TARTRATE 5 MG TABLET PO PRN (22:35)
[2017-07-23] MEDS: ATORVASTATIN CA 10 MG TABLET (FP) PO SCH (22:35)
[2017-07-24 07:59] LABS: EOS % 3.9 % (0-4.5); HEMATOCRIT 36.8 % (35.4-49); HEMOGLOBIN 12.3 GM/dL (11.7-16.9); LYMPH % 24.3 % (8-40); MCHC 33.5 g/dl (32.0-35.9); MEAN CELL VOLUME 92.6 fl (80-96); MEAN PLT VOLUME 6.9 fl (7.5-11.1); MONO % 14.3 % (3.8-10.2); NEUT % 56.5 % (42.8-82.8); PLATELET COUNT 316 K/MM3 (134-434); RBC 3.97 M/mm3 (4.00-5.60); RDW 13.8 % (11.9-15.9); WHITE BLOOD COUNT 5.6 K/mm3 (4.0-10.0)
[2017-07-24 08:11] LABS: CHLORIDE 111 mmol/L (98-107); SODIUM 143 mmol/L (136-145)
[2017-07-24 08:19] LABS: ANION GAP 8 (8-16); BLOOD UREA NITROGEN 4 mg/dL (7-18); CALCIUM 8.8 mg/dL (8.5-10.1); CO2 24 mmol/L (21-32); CREATININE 0.7 mg/dL (0.7-1.3); GLUCOSE,RANDOM 77 mg/dL (74-106); MAGNESIUM 1.9 mg/dL (1.8-2.4); PHOSPHOROUS 3.5 mg/dL (2.5-4.9)
[2017-07-24] MEDS ORDERED: PT OWN MED DRAWER 7, Y5N ONE ×3 (10:25→17:57)
[2017-07-24] MEDS: metoPROLOL SUCCINATE 25 MG TAB.SR.24H (FP) PO SCH (10:31)
[2017-07-24] MEDS: APIXABAN 5 MG TABLET PO SCH ×2 (10:31→21:59)
[2017-07-24] MEDS: TIOTROPIUM BROMIDE 18 MCG CAPSULES IH SCH (10:31)
[2017-07-24] MEDS: ROFLUMILAST 500 MCG TABLET PO SCH (10:31)
[2017-07-24] MEDS: PANTOPRAZOLE SODIUM 40 MG VIAL IVPB SCH (10:31)
[2017-07-24] MEDS: BUDESONIDE/FORMETEROL FUMARATE 80/4.5 mcg INHALER IH SCH ×2 (10:41→21:59)
[2017-07-24] MEDS ORDERED: ONDANSETRON 4 MG TABLET PO ONE ×2 (10:43→14:00)
--- NOTE | 2017-07-24 11:53 | PN ---
Progress Note, Physician Chief Complaint: Mr Harris says his nausea is improved with ativan. Still present but about half and is able to eat. No cp or sob. - Current Medication List Current Medications: Active Medications Albuterol Sulfate (Ventolin 0.083% Nebulizer Soln -) 1 amp NEB RQID [facility] Last Admin: 07/23/17 22:35 Dose: 1 amp Apixaban (Eliquis -) 5 mg PO BID [facility] Last Admin: 07/24/17 10:31 Dose: 5 mg Atorvastatin Calcium (Lipitor -) 10 mg PO HS [facility] Last Admin: 07/23/17 22:35 Dose: 10 mg Budesonide/Formoterol Fumarate (Symbicort 80/4.5mcg -) 2 puff IH BID [facility] Last Admin: 07/24/17 10:41 Dose: 2 inhaler Potassium Chloride/Sodium Chloride (Ns+20 Meq Kcl -) 20 meq in 1,000 mls @ 100 mls/hr IV ASDIR [facility] Last Admin: 07/23/17 22:36 Dose: Not Given Lorazepam (Ativan -) 1 mg PO TID [facility] Metoprolol Succinate (Toprol Xl -) 25 mg PO DAILY [facility] Last Admin: 07/24/17 10:31 Dose: 25 mg Pantoprazole Sodium (Protonix -) 40 mg PO BID [facility] Prochlorperazine Maleate (Compazine -) 5 mg PO ONCE ONE Stop: 07/24/17 12:01 Roflumilast (Daliresp -) 500 mcg PO DAILY [facility] Last Admin: 07/24/17 10:31 Dose: 500 mcg Tiotropium [place] (Spiriva -) 1 puff IH DAILY [facility] Last Admin: 07/24/17 10:31 Dose: 1 puff Zolpidem Tartrate (Ambien -) 10 mg PO HS PRN PRN Reason: INSOMNIA Last Admin: 07/23/17 22:35 Dose: 10 mg - Objective Vital Signs: Vital Signs Temperature 37.0 C 07/24/17 06:00 Pulse Rate 69 07/24/17 06:00 Respiratory Rate 20 07/24/17 06:00 Blood Pressure 105/62 07/24/17 06:00 O2 Sat by Pulse Oximetry (%) 99 07/23/17 21:00 Constitutional: Yes: Well Nourished, No Distress, Calm Cardiovascular: Yes: Regular Rate and Rhythm. No: Gallop, Murmur, Rub Respiratory: Yes: Regular, CTA Bilaterally. No: Rales, Rhonchi, Wheezes Gastrointestinal: Yes: Normal Bowel Sounds, Soft. No: Distention, Tenderness Extremities: Yes: WNL Edema: No Labs: CBC, BMP 07/24/17 06:20 07/24/17 06:20 Problem List - Problems (1) IBS (irritable bowel syndrome) Code(s): K58.9 - IRRITABLE BOWEL SYNDROME WITHOUT DIARRHEA Qualifiers: Irritable bowel syndrome type: without diarrhea Qualified Code(s): K58.9 - Irritable bowel syndrome without diarrhea (2) Afib Code(s): I48.91 - UNSPECIFIED ATRIAL FIBRILLATION Qualifiers: Atrial fibrillation type: paroxysmal Qualified Code(s): I48.0 - Paroxysmal atrial fibrillation (3) COPD (chronic obstructive pulmonary disease) Code(s): J44.9 - CHRONIC OBSTRUCTIVE PULMONARY DISEASE, UNSPECIFIED (4) Hyperlipidemia Code(s): E78.5 - HYPERLIPIDEMIA, UNSPECIFIED Assessment/Plan (1) IBS (irritable bowel syndrome) Assessment/Plan -patient says nausea most improved by ativan -will continue compazine and zofran -will schedule oral ativan in the short term for better control -plan for discharge tomorrow on prn ativan Code(s): K58.9 - IRRITABLE BOWEL SYNDROME WITHOUT DIARRHEA Qualifiers: Irritable bowel syndrome type: without diarrhea Qualified Code(s): K58.9 - Irritable bowel syndrome without diarrhea (2) Afib Assessment/Plan: -currently in sinus rhythm -continue toprol xl Code(s): I48.91 - UNSPECIFIED ATRIAL FIBRILLATION Qualifiers: Atrial fibrillation type: paroxysmal Qualified Code(s): I48.0 - Paroxysmal atrial fibrillation (3) COPD (chronic obstructive pulmonary disease) Assessment/Plan: -not in exacerbation -continue home regimen Code(s): J44.9 - CHRONIC OBSTRUCTIVE PULMONARY DISEASE, UNSPECIFIED (4) Hyperlipidemia Assessment/Plan: -continue lipitor Code(s): E78.5 - HYPERLIPIDEMIA, UNSPECIFIED
[2017-07-24] MEDS ORDERED: PROCHLORPERAZINE MALEATE 5 MG TABLET PO ONE (12:00)
[2017-07-24] MEDS: LORazepam 1 MG TABLET PO SCH ×2 (13:44→21:59)
[2017-07-24] MEDS: SODIUM CHLORIDE 0.9%/KCL 20 MEQ/1,000 ML INFUS.BAG IV SCH (21:58)
[2017-07-24] MEDS: PANTOPRAZOLE 40 MG TABLET (FP) PO SCH (21:59)
[2017-07-24] MEDS: ATORVASTATIN CA 10 MG TABLET (FP) PO SCH (21:59)
[2017-07-24] MEDS: ZOLPIDEM TARTRATE 5 MG TABLET PO PRN (22:04)
[2017-07-25] MEDS: SODIUM CHLORIDE 0.9%/KCL 20 MEQ/1,000 ML INFUS.BAG IV SCH (02:16)
[2017-07-25] MEDS: LORazepam 1 MG TABLET PO SCH ×2 (06:18→14:15)
[2017-07-25] MEDS ORDERED: PT OWN MED DRAWER 7, Y5N ONE (09:29)
[2017-07-25] MEDS: PANTOPRAZOLE 40 MG TABLET (FP) PO SCH (09:44)
[2017-07-25] MEDS: ROFLUMILAST 500 MCG TABLET PO SCH (09:45)
[2017-07-25] MEDS: metoPROLOL SUCCINATE 25 MG TAB.SR.24H (FP) PO SCH (09:45)
[2017-07-25] MEDS: APIXABAN 5 MG TABLET PO SCH (09:45)
[2017-07-25] MEDS: TIOTROPIUM BROMIDE 18 MCG CAPSULES IH SCH (09:45)
[2017-07-25 11:28] VITALS: BP 118/66; PULSE 62; TEMP 97.8
--- NOTE | 2017-07-25 11:30 | DS ---
Physical Examination Vital Signs: Vital Signs Temperature 36.6 C 07/25/17 07:45 Pulse Rate 62 07/25/17 07:45 Respiratory Rate 18 07/25/17 07:45 Blood Pressure 118/66 07/25/17 07:45 O2 Sat by Pulse Oximetry (%) 99 07/25/17 05:00 Constitutional: Yes: Well Nourished, No Distress, Calm Cardiovascular: Yes: Regular Rate and Rhythm. No: Gallop, Murmur, Rub Respiratory: Yes: Regular, CTA Bilaterally. No: Rales, Rhonchi, Wheezes Gastrointestinal: Yes: Normal Bowel Sounds, Soft. No: Distention, Tenderness Extremities: Yes: WNL Edema: No Labs: CBC, BMP 07/24/17 06:20 07/24/17 06:20 Discharge Summary Reason For Visit: NAUSEA AND VOMITING Current Active Problems Gastroparesis (Acute) Nausea and vomiting (Acute) Hospital Course: (1) IBS (irritable bowel syndrome) Code(s): K58.9 - IRRITABLE BOWEL SYNDROME WITHOUT DIARRHEA Qualifiers: Irritable bowel syndrome type: without diarrhea Qualified Code(s): K58.9 - Irritable bowel syndrome without diarrhea (2) Afib Code(s): I48.91 - UNSPECIFIED ATRIAL FIBRILLATION Qualifiers: Atrial fibrillation type: paroxysmal Qualified Code(s): I48.0 - Paroxysmal atrial fibrillation (3) COPD (chronic obstructive pulmonary disease) Code(s): J44.9 - CHRONIC OBSTRUCTIVE PULMONARY DISEASE, UNSPECIFIED (4) Hyperlipidemia Code(s): E78.5 - HYPERLIPIDEMIA, UNSPECIFIED Mr Harris is a very pleasant 67 year old male who came in with intractable nausea and vomiting. He was admitted under observation and seen by GI. He was started on zofran with minimal relief. IV reglan was trialled and was ineffective so this was stopped secondary to potential side effects. Reglan was changed to compazine, but this was also ineffective. he was then trialled on ativan and his nausea resolved. He will be sent out on scheduled ativan for a short time and instructed to change to prn once his nausea is controlled. He has an appt with Dr Castillo already in place. 33 minutes spent in preparation of this discharge Condition: Good - Instructions Diet, Activity, Other Instructions: resume previous diet and activity Referrals: Dm Castillo MD [Primary Care Provider] - Disposition: HOME - Home Medications Comprehensive Discharge Medication List: Ambulatory Orders Albuterol Sulfate 2.5 mg NEB BID 05/22/17 Atorvastatin Ca [Lipitor] 10 mg PO HS 05/22/17 Metoprolol Succinate 25 mg PO DAILY 05/22/17 Roflumilast [Daliresp] 500 mcg PO DAILY 05/22/17 Tiotropium [place] [Spiriva] 1 inh IH DAILY 05/22/17 Zolpidem Tartrate [Ambien Cr] 12.5 mg PO HS 05/22/17 Edoxaban Tosylate [Savaysa] 60 mg PO DAILY 07/21/17 Fluticasone/Salmeterol [Advair 250-50 Diskus] 1 each IH BID 07/21/17 LORazepam [Ativan] 1 mg PO TID #90 tablet MDD 3mg 07/25/17 Pantoprazole Sodium [Protonix -] 40 mg PO BID #60 tablet.ec 07/25/17
[2017-07-25] MEDS: BUDESONIDE/FORMETEROL FUMARATE 80/4.5 mcg INHALER IH SCH (11:38)
== END 2017-07-25 14:21 | disposition home or self-care (01) ==
LOC: JER 14:56 → JERBED 19:51 → J8W 22:59
PROVIDERS: ADMIT Internal Medicine; ATTEND Internal Medicine
PROC: 3E033NZ Introduction of Analgesics, Hypnotics, Sedatives into Peripheral Vein, Percutaneous Approach (ICD-10-PCS; principal; 2017-07-21)
PROC: 3E033GC Introduction of Other Therapeutic Substance into Peripheral Vein, Percutaneous Approach (ICD-10-PCS; 2017-07-21)
PROC: 3E0337Z Introduction of Electrolytic and Water Balance Substance into Peripheral Vein, Percutaneous Approach (ICD-10-PCS; 2017-07-21)
PROC: 3E0F7GC Introduction of Other Therapeutic Substance into Respiratory Tract, Via Natural or Artificial Opening (ICD-10-PCS; 2017-07-21)
DX: K31.84 Gastroparesis (principal); R11.2 Nausea with vomiting, unspecified; K58.9 Irritable bowel syndrome, unspecified; I48.0 Paroxysmal atrial fibrillation; J44.9 Chronic obstructive pulmonary disease, unspecified; E78.5 Hyperlipidemia, unspecified; G25.81 Restless legs syndrome; G47.00 Insomnia, unspecified; G89.29 Other chronic pain; Z79.01 Long term (current) use of anticoagulants; Z87.891 Personal history of nicotine dependence; Z88.1 Allergy status to other antibiotic agents; Z88.6 Allergy status to analgesic agent
CPT/HCPCS: 36415; 71045-TC-FY; 80048; 80053; 81003; 82550; 83690; 83735; 84100; 84484; 85025; 93005; 93010; 94640; 96374; 96375; 96376; 99281-25; G0378; J0131

== ENCOUNTER 2017-08-25 09:10 | Inpatient (IN) | payer OTHER ==
[2017-08-25 09:22] VITALS: BMI 22.1
[2017-08-25] MEDS ORDERED: ALBUTEROL SO4 2.5/IPRATROPIUM 0.5 INH SOL 3 ML VIAL.NEB. NEB ONE ×2 (09:51→09:55)
[2017-08-25] MEDS ORDERED: ONDANSETRON 4 MG/2 ML VIAL IVPUSH ONE (09:53)
--- NOTE | 2017-08-25 09:53 | PDOC ---
History of Present Illness - General History Source: Patient - History of Present Illness Timing/Duration: reports: yesterday Severity: reports: severe Associated Symptoms: reports: cough, shortness of breath. denies: chest pain/ soreness, wheezing <Jacquie BrownAndrea - Last Filed: 08/25/17 15:03> <Vanessa Abdi - Last Filed: 08/26/17 09:56> - General Chief Complaint: Shortness of Breath Stated Complaint: SOB, ABD PAIN Time Seen by Provider: 08/25/17 09:39 Past History - Past Medical History Anemia: No Asthma: No Cancer: No Cardiac Disorders: Yes (A-FIB) CVA: No COPD: Yes CHF: No Dementia: No Diabetes: No GI Disorders: Yes (COLON POLYPS, diverticulosis) Disorders: No HTN: No Hypercholesterolemia: Yes Liver Disease: No Seizures: No Thyroid Disease: No - Surgical History Abdominal Surgery: Yes (LT INGUINAL AND UMBILICAL) Appendectomy: No Cardiac Surgery: No Cholecystectomy: No Lung Surgery: No Neurologic Surgery: No Orthopedic Surgery: Yes (RT ROTATOR CUFF SHOULDER) - Immunization History Immunization Up to Date: Yes - Suicide/Smoking/Psychosocial Hx Smoking History: Former smoker Have you smoked in the past 12 months: No If you are a former smoker, when did you quit?: 1987 Information on smoking cessation initiated: No Hx Alcohol Use: No Drug/Substance Use Hx: No Substance Use Type: None Hx Substance Use Treatment: No <Jacquie BrownAndrea - Last Filed: 08/25/17 15:03> <Vanessa bAdi - Last Filed: 08/26/17 09:56> - Past Medical History Allergies/Adverse Reactions: Allergies Allergy/AdvReac Type Severity Reaction Status Date / Time amoxicillin Allergy Verified 08/25/17 09:18 morphine AdvReac Severe Vomiting Verified 08/25/17 09:18 oxycodone AdvReac Severe Vomiting Verified 08/25/17 09:18 methylprednisolone AdvReac Mild Itching Verified 08/25/17 09:18 [From Solu-Medrol] Home Medications: Ambulatory Orders Albuterol Sulfate 2.5 mg NEB BID 05/22/17 Atorvastatin Ca [Lipitor] 10 mg PO HS 05/22/17 Metoprolol Succinate 25 mg PO DAILY 05/22/17 Roflumilast [Daliresp] 500 mcg PO DAILY 05/22/17 Tiotropium [place] [Spiriva] 1 inh IH DAILY 05/22/17 Zolpidem Tartrate [Ambien Cr] 12.5 mg PO HS 05/22/17 Edoxaban Tosylate [Savaysa] 60 mg PO DAILY 07/21/17 Fluticasone/Salmeterol [Advair 250-50 Diskus] 1 each IH BID 07/21/17 Albuterol Sulfate [Proair Hfa] 8.5 gm IH PRN 08/25/17 Cyproheptadine [Periactin -] 4 mg PO Q8H 08/25/17 Review of Systems - Review of Systems Constitutional: Yes: Fever Respiratory: Yes: Cough, Shortness of Breath Cardiac (ROS): No: Chest Pain, Lightheadedness, Palpitations ABD/GI: Yes: Nausea, Vomiting, Abdominal cramping. No: Blood Streaked Bowels, Constipated, Diarrhea, Rectal Bleeding : No: Dysuria <Bari Brown Filed: 08/25/17 15:03> *Physical Exam - Vital Signs Last Vital Signs Temp Pulse Resp BP Pulse Ox 99.1 F 99 H 20 118/71 92 L 08/25/17 09:18 08/25/17 09:18 08/25/17 09:18 08/25/17 09:18 08/25/17 09:18 - Physical Exam General Appearance: Yes: Appropriately Dressed. No: Apparent Distress HEENT: positive: Normal Voice Neck: positive: Supple Respiratory/Chest: positive: Lungs Clear, Normal Breath Sounds. negative: Respiratory Distress Cardiovascular: positive: Regular Rate, S1, S2 Gastrointestinal/Abdominal: positive: Tender (to epigastrium and RUQ, neg murpehys, no CVAT), Soft Musculoskeletal: negative: CVA Tenderness Extremity: positive: Normal Inspection Integumentary: positive: Dry, Warm Neurologic: positive: Fully Oriented, Alert, Normal Mood/Affect <Bari Borwn Filed: 08/25/17 15:03> - Vital Signs Last Vital Signs Temp Pulse Resp BP Pulse Ox 98.0 F 78 20 110/64 97 08/26/17 06:13 08/26/17 06:13 08/26/17 06:13 08/26/17 06:13 08/25/17 20:03 <Vanessa Abdi - Last Filed: 08/26/17 09:56> ED Treatment Course - LABORATORY CBC & Chemistry Diagram: 08/25/17 10:00 08/25/17 10:00 - RADIOLOGY Radiology Studies Ordered: Category Date Time Status CHEST X-RAY PORTABLE* [RAD] Stat Radiology 08/25/17 09:40 Ordered <Bari Brown - Last Filed: 08/25/17 15:03> - LABORATORY CBC & Chemistry Diagram: 08/26/17 07:30 08/26/17 07:30 - ADDITIONAL ORDERS Additional order review: 08/25/17 10:00 RBC 4.61 MCV 93.8 MCHC 32.9 RDW 14.3 MPV 7.3 L Neutrophils % 91.3 H D Lymphocytes % 3.8 L D Monocytes % 4.7 Eosinophils % 0.1 D Basophils % 0.1 - Medications Given in the ED: ED Medications Discontinued Medications Generic Name Dose Route Start Last Admin Trade Name Jane PRN Reason Stop Dose Admin Acetaminophen 1,000 mg 08/25/17 09:54 08/25/17 10:45 Ofirmev Injection - IVPB 08/25/17 09:55 1,000 mg ONCE ONE Administration Albuterol/Ipratropium 1 amp 08/25/17 09:55 08/25/17 09:45 Duoneb - NEB 08/25/17 09:56 1 amp ONCE ONE Administration Sodium Chloride 500 mls @ 500 mls/hr 08/25/17 09:54 08/25/17 10:30 Normal Saline - IV 08/25/17 10:53 500 mls/hr ASDIR STA Administration Levofloxacin 750 mg in 150 mls @ 100 mls/hr 08/25/17 14:31 08/25/17 15:45 Levaquin 750 Mg Premixed Ivpb - IVPB 08/25/17 16:00 100 mls/hr ONCE ONE Administration Protocol Vancomycin HCl 1,000 mg/ 250 mls @ 250 mls/hr 08/25/17 14:32 08/25/17 16:13 Dextrose IVPB 08/25/17 15:31 250 mls/hr ONCE ONE Administration Protocol Vancomycin HCl 1 gm in 200 mls @ 133.333 mls/hr 08/26/17 03:00 08/26/17 02:48 Vancomycin 1 Gm Premix - IVPB 08/26/17 04:29 133.333 mls/hr ONCE ONE Administration Protocol Methylprednisolone Sodium Succinate 125 mg 08/25/17 09:55 08/25/17 10:30 Solu-Medrol - IVPUSH 08/25/17 09:56 125 mg ONCE ONE Administration Ondansetron HCl 4 mg 08/25/17 09:53 08/25/17 10:30 Zofran Injection IVPUSH 08/25/17 09:54 4 mg ONCE ONE Administration <Vanessa Abdi - Last Filed: 08/26/17 09:56> Medical Decision Making - Medical Decision Making 08/25/17 09:45 67-year-old male, history of COPD, not on oxygen, HLD, afib on eliquis, restless leg syndrome, fungal esophagitis dx and treated 6 months ago per , chronic abdominal pain, insomnia, here with abdominal pain since last night. Patient reports that this is his usual chronic abd pain, located to upper abd, sharp, 9/10, constant and a/w nausea/vomiting. states patient had a fever of 101 this a.m. and has since given him tylenol. Patient denies any acute change in bowel movements or dysuria. Last CT was approximately 3 months ago and showed no acute pathology. gastric emptying study in 2016 showed possible gastroparesis. No unexplained weight loss. Also complaining of his usual shortness of breath and cough associated with his COPD. No wheezing, chest pain at this time See exam Acute on chronic upper abdominal pain Tx for fungal esophagitis 6 months ago ?gastroparesis on study in [address] a/p 3 months ago F/u Dr Pratt of GI -pain control -zofran -IVF -labs -CT a/p -GI c/s SOB and cough Not new and c/w his COPD per pt Hypoxic to 92% on RA (not 02 dependent), chest/lungs clear, no edema -trial of duonebs -solumedrol -EKG -CXR 08/25/17 10:[address] Pratt who states he's not entirely certain what is the source of patient's chronic abdominal pain. MConsuelo does not think this is recurrent esophagitis as pt currently has no dysphagia. States Dr Lazar is covering and wants consult placed to [facility] 08/25/17 14:38 White count of 27 with right lower lobe infiltrate on CAT scan, no acute intra- abdominal pathology. Will cover for hospital-acquired pneumonia given admission within the last 3 months. Patient well-appearing and in no apparent distress currently. Given drug allergies, will give Levaquin and Vanco at this time and admit patient. Dr Hammond aware <Bari Brown - Last Filed: 08/25/17 15:03> - Medical Decision Making I did not personally see the patient, but agree with assessment and plan as documented. discussed with midlevel provider 08/26/17 09:56 <Vanessa Abdi - Last Filed: 08/26/17 09:56> *DC/Admit/Observation/Transfer - Discharge Dispostion Decision to Admit order: Yes <Bari Bronw - Last Filed: 08/25/17 15:03> <Vanessa Abdi - Last Filed: 08/26/17 09:56> Diagnosis at time of Disposition: Pneumonia Qualifiers: Pneumonia type: due to unspecified organism Laterality: right Lung location: lower lobe of lung Qualified Code(s): J18.1 - Lobar pneumonia, unspecified organism - Discharge Dispostion Condition at time of disposition: Fair
[2017-08-25] MEDS ORDERED: SODIUM CHLORIDE 500 ML IV STA (09:54)
[2017-08-25] MEDS ORDERED: ACETAMINOPHEN 1000 MG/100 ML VIAL (NON FORMULARY) IVPB ONE (09:54)
[2017-08-25] MEDS ORDERED: methylPREDNISolone NA SUCC 125 MG/2 ML VIAL IVPUSH ONE (09:55)
[2017-08-25] MEDS ORDERED: ONDANSETRON 4 MG/2 ML VIAL ONE (10:25)
[2017-08-25] MEDS ORDERED: methylPREDNISolone NA SUCC 125 MG/2 ML VIAL ONE (10:25)
[2017-08-25] MEDS ORDERED: ACETAMINOPHEN INJECTION 100 ML IVPB ONE (10:25)
[2017-08-25 10:27] LABS: BASO % 0.1 % (0-2.0); EOS % 0.1 % (0-4.5); HEMATOCRIT 43.2 % (35.4-49); HEMOGLOBIN 14.2 GM/dL (11.7-16.9); LYMPH % 3.8 % (8-40); MCH 30.9 pg (25.7-33.7); MCHC 32.9 g/dl (32.0-35.9); MEAN CELL VOLUME 93.8 fl (80-96); MEAN PLT VOLUME 7.3 fl (7.5-11.1); MONO % 4.7 % (3.8-10.2); NEUT % 91.3 % (42.8-82.8); PLATELET COUNT 284 K/MM3 (134-434); RBC 4.61 M/mm3 (4.00-5.60); RDW 14.3 % (11.9-15.9); WHITE BLOOD COUNT 27.1 K/mm3 (4.0-10.0)
[2017-08-25 11:05] LABS: ALBUMIN 3.6 g/dl (3.4-5.0); ANION GAP 11 (8-16); BLOOD UREA NITROGEN 16 mg/dL (7-18); CALCIUM 9.2 mg/dL (8.5-10.1); CHLORIDE 108 mmol/L (98-107); CO2 23 mmol/L (21-32); GLUCOSE,RANDOM 81 mg/dL (74-106); SODIUM 142 mmol/L (136-145)
[2017-08-25 11:12] LABS: ALK PHOS 79 U/L (45-117); BILIRUBIN,TOTAL 1.3 mg/dL (0.2-1.0); SGPT/ALT 21 U/L (12-78); TOT PROT 6.7 g/dl (6.4-8.2)
[2017-08-25 11:23] LABS: SGOT/AST 16 U/L (15-37)
[2017-08-25 11:24] LABS: POTASSIUM 4.2 mmol/L (3.5-5.1)
[2017-08-25 12:22] LABS: ANISOCYTOSIS 1+; MACROCYTOSIS 0; PLATELET ESTIMATE NORMAL
[2017-08-25 13:23] LABS: LIPASE 75 U/L (73-393)
[2017-08-25 14:27] LABS: URINE APPEARANCE CLEAR; URINE BILIRUBIN NEGATIVE (<2.0 mg/dL); URINE COLOR YELLOW; URINE GLUCOSE (UA) NEGATIVE (NEGATIVE); URINE KETONE NEGATIVE (NEGATIVE); URINE LEUK ESTERASE NEGATIVE (NEGATIVE); URINE NITRITE NEGATIVE (NEGATIVE); URINE UROBILINOGEN NEGATIVE mg/dL (0.2-1.0)
[2017-08-25 14:29] LABS: URINE PROTEIN 1+ (NEGATIVE)
[2017-08-25] MEDS ORDERED: VANCOMYCIN 1,000 MG in DEXTROSE 5%-WATER - 250 ML IVPB ONE (14:32)
[2017-08-25 14:41] LABS: EPI CELLS RARE /HPF (FEW); URINE MUCUS MANY
[2017-08-25] MEDS ORDERED: VANCOMYCIN 1 GRAM (PRE-DOCKED) 1,000 MG/250 ML BAG IVPB ONE (15:36)
--- NOTE | 2017-08-25 15:45 | PN ---
Progress Note (short form) - Note Progress Note: PULMONARY CONSULTATION DICTATED 08/25/17 IMP RLL PNEUMONIA COPD ABDOMINAL PAIN ASBESTOS PLEURAL DISEASE PAF IRRITABLE BOWEL SYNDROME PLAN IV ABX INHALED BRONCHODILATORS O2 IVF CULTURES LEGIONELLA URINARY ANTIGEN GI EVALUATION CHEST CT DR BROCK Problem List - Problems (1) Pneumonia Code(s): J18.9 - PNEUMONIA, UNSPECIFIED ORGANISM Qualifiers: Pneumonia type: due to unspecified organism Laterality: right Lung location: lower lobe of lung Qualified Code(s): J18.1 - Lobar pneumonia, unspecified organism (2) Abdominal pain Code(s): R10.9 - UNSPECIFIED ABDOMINAL PAIN (3) Acute exacerbation of chronic obstructive pulmonary disease Code(s): J44.1 - CHRONIC OBSTRUCTIVE PULMONARY DISEASE W (ACUTE) EXACERBATION (4) Afib Code(s): I48.91 - UNSPECIFIED ATRIAL FIBRILLATION Qualifiers: (5) IBS (irritable bowel syndrome) Code(s): K58.9 - IRRITABLE BOWEL SYNDROME WITHOUT DIARRHEA Qualifiers: (6) Nausea and vomiting Code(s): R11.2 - NAUSEA WITH VOMITING, UNSPECIFIED
[2017-08-25] MEDS ORDERED: ALBUTEROL SO4 0.083% IH SOL 2.5 MG/3 ML VIAL.NEB. NEB PRN (15:47)
--- NOTE | 2017-08-25 15:54 | HP ---
Admitting History and Physical - Primary Care Physician PCP: Dm Castillo - Admission Chief Complaint: fever at home History of Present Illness: is a 67 year old male who comes in from home with 1 day history of non productive cough, fevers, sob and chills. Pt reports he started getting the chills and cough yesterday and this am he had a fever of 100.6. He reports chest discomfort when coughing. Otherwise, pt reports diffuse abd pain which is chronic in nature. Pt followed by Dr.Lantin ellis. Pt denies any chest pain, worsening sob, n/v/d, rash, dysuria, recent travel, unilateral weakness, hematochezia. History Source: Patient, Significant Other Limitations to Obtaining History: No Limitations - Past Medical History Cardiovascular: Yes: AFIB, Hyperlipdemia Pulmonary: Yes: COPD Gastrointestinal: Yes: Other (fungal esophogitis) Psych: Yes: Other (Insomnia) - Past Surgical History Past Surgical History: Yes: Hernia Repair (umbillical, left inguinal) - Smoking History Smoking history: Former smoker Have you smoked in the past 12 months: No If you are a former smoker, when did you quit?: 1988 - Alcohol/Substance Use Hx Alcohol Use: No History of Substance Use: reports: None - Social History Usual Living Arrangement: Yes: With Spouse ADL: Independent Occupation: Works in construction History of Recent Travel: No Home Medications - Allergies Allergies/Adverse Reactions: Allergies Allergy/AdvReac Type Severity Reaction Status Date / Time amoxicillin Allergy Verified 08/25/17 09:18 morphine AdvReac Severe Vomiting Verified 08/25/17 09:18 oxycodone AdvReac Severe Vomiting Verified 08/25/17 09:18 methylprednisolone AdvReac Mild Itching Verified 08/25/17 09:18 [From Solu-Medrol] - Home Medications Home Medications: Ambulatory Orders Albuterol Sulfate 2.5 mg NEB BID 05/22/17 Atorvastatin Ca [Lipitor] 10 mg PO HS 05/22/17 Metoprolol Succinate 25 mg PO DAILY 05/22/17 Roflumilast [Daliresp] 500 mcg PO DAILY 05/22/17 Tiotropium [place] [Spiriva] 1 inh IH DAILY 05/22/17 Zolpidem Tartrate [Ambien Cr] 12.5 mg PO HS 05/22/17 Edoxaban Tosylate [Savaysa] 60 mg PO DAILY 07/21/17 Fluticasone/Salmeterol [Advair 250-50 Diskus] 1 each IH BID 07/21/17 Albuterol Sulfate [Proair Hfa] 8.5 gm IH PRN 08/25/17 Cyproheptadine [Periactin -] 4 mg PO Q8H 08/25/17 Family Disease History - Family Disease History Family Disease History: Heart Disease: Father, CA: Mother (pancreatic), Brother (lung) Review of Systems Findings/Remarks: as per hpi Physical Examination Vital Signs: Vital Signs Temperature 99.1 F 08/25/17 09:18 Pulse Rate 93 H 08/25/17 11:25 Respiratory Rate 22 08/25/17 11:25 Blood Pressure 117/67 08/25/17 11:25 O2 Sat by Pulse Oximetry (%) 95 08/25/17 11:25 Constitutional: Yes: Well Nourished, No Distress, Calm Cardiovascular: Yes: Pulse Irregular. No: Gallop, Murmur Respiratory: Yes: Regular, Cough, Diminished, On Nasal O2, Rales (RLL), SOB. No : Accessory Muscle Use, Tachypnea Gastrointestinal: Yes: WNL, Normal Bowel Sounds, Soft. No: Distention, Tenderness Renal/: Yes: WNL Musculoskeletal: Yes: WNL Extremities: Yes: WNL Edema: No Neurological: Yes: WNL, Alert, Oriented Psychiatric: Yes: WNL, Alert, Oriented Labs: CBC, BMP 08/25/17 10:00 08/25/17 10:00 Imaging - Results Cat Scan: Report Reviewed (abd/pelvis- no acute pathology of abdomen. RLL consolidation suggestive of PNA) Problem List - Problems (1) HCAP (healthcare-associated pneumonia) Assessment/Plan: recent hospital admission within last 3 months underlying chronic lung disease +fever, leukocytosis, cough/fever/chills/pleurisy CT- RLL consolidation sputum culture/ legionella urine ordered levofloxacin/vanco in ED ID consulted transition to PO antibx once pt afebrile for 48 hours, able to take in PO Code(s): J18.9 - PNEUMONIA, UNSPECIFIED ORGANISM (2) Leukocytosis Assessment/Plan: secondary to PNA as above Code(s): D72.829 - ELEVATED WHITE BLOOD CELL COUNT, UNSPECIFIED Qualifiers: Leukocytosis type: bandemia Qualified Code(s): D72.825 - Bandemia (3) Afib Assessment/Plan: rate controlled continue metoprolol/ savaysa Code(s): I48.91 - UNSPECIFIED ATRIAL FIBRILLATION Qualifiers: Atrial fibrillation type: paroxysmal Qualified Code(s): I48.0 - Paroxysmal atrial fibrillation (4) COPD (chronic obstructive pulmonary disease) Assessment/Plan: chronic continue nebs o2 prn pulm following Code(s): J44.9 - CHRONIC OBSTRUCTIVE PULMONARY DISEASE, UNSPECIFIED (5) Gastroparesis Assessment/Plan: pt takes domperidone at home followed by GI Code(s): K31.84 - GASTROPARESIS (6) Chronic abdominal pain Assessment/Plan: chronic abd pain/cramping followed by GI outpt CT unremarkable for abd/pelvis pathology zofran/ ativan prn GI consult pending Code(s): R10.9 - UNSPECIFIED ABDOMINAL PAIN; G89.29 - OTHER CHRONIC PAIN (7) Hyperlipidemia Assessment/Plan: chronic continue statin Code(s): E78.5 - HYPERLIPIDEMIA, UNSPECIFIED (8) Insomnia Assessment/Plan: chronic takes ambien cr 12.5 hs at home ambien 5mg hs here monitor Code(s): G47.00 - INSOMNIA, UNSPECIFIED
[2017-08-25] MEDS ORDERED: TIOTROPIUM BROMIDE 18 MCG CAPSULES IH SCH (16:00)
[2017-08-25] MEDS ORDERED: ONDANSETRON 4 MG/2 ML VIAL IVPUSH PRN (16:43)
[2017-08-25] MEDS ORDERED: ACETAMINOPHEN 325 MG TABLET (FP) PO PRN (16:43)
[2017-08-25] MEDS ORDERED: ALBUTEROL SO4 8 GM HFA INHALER IH PRN (16:45)
[2017-08-25] MEDS ORDERED: LORazepam 1 MG TABLET PO PRN (16:47)
--- NOTE | 2017-08-25 17:06 | CONS ---
DATE OF CONSULTATION: 08/25/2017 PULMONARY CONSULTATION REFERRING PHYSICIAN: Raman Hammond MD HISTORY OF PRESENT ILLNESS: Patient is a 67-year-old white male well known to me from previous hospitalizations with past medical history of COPD on inhaled bronchodilators, history of pneumonia left lower lobe, history of hyperlipidemia , fungal esophagitis, paroxysmal atrial fibrillation, restless leg syndrome, insomnia, asbestos pleural disease admitted to [facility] complaining of acute onset of shaking chills associated with fever and cough and shortness of breath. Patient states he is doing well until yesterday when he started developing a sudden onset of shaking chills. He also complained of some nausea and abdominal discomfort. He denied any hemoptysis. He presented to the emergency room with the above. In the ER, he had a CT of the abdomen performed which revealed a right lower lobe infiltrate which is new from previous CAT scan. Patient denies any recent travel. There is no history of hemoptysis. Denies any chest pain or palpitations. Does complain of shortness of breath and cough and chest congestion. He also complains of nausea and vomiting and abdominal cramping. PAST MEDICAL HISTORY: Again includes COPD, asbestos pleural disease, pneumonia, colonic polyps, diverticulosis, paroxysmal atrial fibrillation, right rotator cuff surgery. SOCIAL HISTORY: History of tobacco use, quit in 1987. Retired plasterer. Born in [place] and moved to the [place] years ago. MEDICATIONS: Prior to admission include albuterol, Lipitor, metoprolol, Daliresp, Spiriva, Ambien, Advair, ProAir, and Periactin. REVIEW OF SYSTEMS: Positive for chills. Positive shaking chills. Positive shortness of breath. Positive cough. No chest pain. No palpitation. Positive for nausea and vomiting. No lower extremity edema. PHYSICAL EXAMINATION: General: Patient is a well-developed, well-nourished male, awake, alert, currently in on acute respiratory distress. Vital Signs: He is currently afebrile, blood pressure is 118/66, respiratory rate is 18, O2 saturation is 99% on room air. HEENT: Exam is normocephalic, atraumatic. Neck: Supple. Heart: Regular, S1, S2. Chest: Bilateral bibasilar crackles, right greater than left. Abdomen: Soft. Bowel sounds positive. Extremities: No cyanosis. Edema. LABORATORIES: INR is 1.22. WBC is 27.1, hemoglobin 14.2, hematocrit 43.2, platelet count 284,000. BUN is 16, creatinine 1.0. BNP is 1027. Chest/Abdominal CT revealed an acute right lower lobe pneumonia. Bilateral lower lobe consolidation which is new from previous exam. IMPRESSION: 1. Acute right lower lobe pneumonia. 2. Chronic obstructive pulmonary disease. 3. Asbestos pleural disease. 4. Abdominal pain. 5. Nausea and vomiting. 6. History of fungal esophagitis. 7. Pulmonary nodule left upper lobe. PLAN: IV antibiotics. Inhaled bronchodilators. Supplemental O2. Obtain followup chest CT. GI evaluation. Monitor WBC, electrolytes, Legionella urinary antigen.cultures JUDY BROCK M.D. LEISA/[id number] MTDD
[2017-08-25] MEDS: CYPROHEPTADINE HCL 4 MG TABLET PO SCH ×2 (19:29→21:11)
[2017-08-25] MEDS: LACTOBACILLUS ACIDOPHILUS 1 TABLET PO SCH (19:29)
[2017-08-25] MEDS: ATORVASTATIN CA 10 MG TABLET (FP) PO SCH (21:11)
[2017-08-25] MEDS ORDERED: ZOLPIDEM TARTRATE 5 MG TABLET PO PRN (22:00)
[2017-08-25] MEDS: BUDESONIDE/FORMETEROL FUMARATE 80/4.5 mcg INHALER IH SCH (23:48)
[2017-08-26] MEDS ORDERED: PT OWN MED DRAWER 7, Y5N ONE ×3 (00:13→22:26)
[2017-08-26] MEDS ORDERED: VANCOMYCIN 1 GM PREMIX - 1 GM/200 ML BAG IVPB ONE (03:00)
[2017-08-26] MEDS: CYPROHEPTADINE HCL 4 MG TABLET PO SCH ×3 (05:21→22:45)
[2017-08-26 07:58] LABS: BASO % 0.1 % (0-2.0); HEMATOCRIT 39.7 % (35.4-49); HEMOGLOBIN 13.2 GM/dL (11.7-16.9); LYMPH % 3.5 % (8-40); MCH 31.4 pg (25.7-33.7); MCHC 33.4 g/dl (32.0-35.9); MEAN CELL VOLUME 94.1 fl (80-96); MONO % 5.4 % (3.8-10.2); PLATELET COUNT 262 K/MM3 (134-434); RBC 4.21 M/mm3 (4.00-5.60); RDW 14.7 % (11.9-15.9)
[2017-08-26 08:39] LABS: ANION GAP 9 (8-16); BLOOD UREA NITROGEN 15 mg/dL (7-18); CALCIUM 9.3 mg/dL (8.5-10.1); CHLORIDE 112 mmol/L (98-107); CO2 21 mmol/L (21-32); CREATININE 0.8 mg/dL (0.7-1.3); GLUCOSE,RANDOM 112 mg/dL (74-106); MAGNESIUM 2.1 mg/dL (1.8-2.4); POTASSIUM 4.2 mmol/L (3.5-5.1); SODIUM 142 mmol/L (136-145)
[2017-08-26 09:09] LABS: ANISOCYTOSIS 1+; MACROCYTOSIS 0; PLATELET ESTIMATE NORMAL
[2017-08-26] MEDS: metoPROLOL SUCCINATE 25 MG TAB.SR.24H (FP) PO SCH (09:10)
[2017-08-26] MEDS: LACTOBACILLUS ACIDOPHILUS 1 TABLET PO SCH (09:10)
[2017-08-26] MEDS: ROFLUMILAST 500 MCG TABLET PO SCH (09:10)
[2017-08-26] MEDS: TIOTROPIUM BROMIDE 18 MCG CAPSULES IH SCH (09:10)
[2017-08-26] MEDS: BUDESONIDE/FORMETEROL FUMARATE 80/4.5 mcg INHALER IH SCH ×2 (09:11→22:44)
[2017-08-26] MEDS ORDERED: PATIENT'S OWN MEDICATION (NON-FORMULARY) (Edoxaban Tosylate [Savaysa] 60 MG) PO SCH (10:00)
--- NOTE | 2017-08-26 11:14 | PN ---
Progress Note, Physician Chief Complaint: Pt sitting in bed in no acute distress. Reports he is feeling better. Denies any chest pain, worsening sob, N/V/D - Current Medication List Current Medications: Active Medications Acetaminophen (Tylenol -) 650 mg PO Q4H PRN PRN Reason: PAIN LEVEL 1-5 Albuterol Sulfate (Ventolin 0.083% Nebulizer Soln -) 2.5 amp NEB RBID FRIEDA Albuterol Sulfate (Ventolin Hfa Inhaler -) 1 puff IH Q6H PRN PRN Reason: SHORTNESS OF BREATH Atorvastatin Calcium (Lipitor -) 10 mg PO HS [facility] Last Admin: 08/25/17 21:11 Dose: 10 mg Budesonide/Formoterol Fumarate (Symbicort 80/4.5mcg -) 2 puff IH BID FRIEDA Last Admin: 08/26/17 09:11 Dose: 2 puff Cyproheptadine HCl (Periactin -) 4 mg PO TID [facility] Last Admin: 08/26/17 05:21 Dose: 4 mg Levofloxacin (Levaquin 750 Mg Premixed Ivpb -) 750 mg in 150 mls @ 100 mls/hr IVPB DAILY [facility]; Protocol Last Admin: 08/26/17 09:10 Dose: 100 mls/hr Lactobacillus Acidophilus (Bacid -) 1 tab PO DAILY [facility] Last Admin: 08/26/17 09:10 Dose: 1 tab Lorazepam (Ativan -) 1 mg PO BID PRN PRN Reason: NAUSEA Last Admin: 08/25/17 21:18 Dose: 1 mg Metoprolol Succinate (Toprol Xl -) 25 mg PO DAILY [facility] Last Admin: 08/26/17 09:10 Dose: 25 mg Non-Formulary Medication (Edoxaban Tosylate [Savaysa]) 60 mg PO DAILY [facility] Ondansetron HCl (Zofran Injection) 4 mg IVPUSH Q6H PRN PRN Reason: NAUSEA AND/OR VOMITING Roflumilast (Daliresp -) 500 mcg PO DAILY [facility] Last Admin: 08/26/17 09:10 Dose: 500 mcg Tiotropium [place] (Spiriva -) 1 puff IH DAILY [facility] Last Admin: 08/26/17 09:10 Dose: 1 puff Zolpidem Tartrate (Ambien -) 5 mg PO HS PRN PRN Reason: INSOMNIA Last Admin: 08/25/17 21:14 Dose: 5 mg - Objective Vital Signs: Vital Signs Temperature 98.0 F 08/26/17 06:13 Pulse Rate 78 08/26/17 06:13 Respiratory Rate 20 08/26/17 06:13 Blood Pressure 110/64 08/26/17 06:13 O2 Sat by Pulse Oximetry (%) 97 08/25/17 20:03 Constitutional: Yes: Well Nourished, No Distress, Calm Cardiovascular: Yes: Pulse Irregular. No: Gallop, Murmur Respiratory: Yes: Regular, Diminished, On Nasal O2, Poor Air Entry, Rales ( bibasilar), SOB on Exertion. No: Accessory Muscle Use, Tachypnea, Wheezes Gastrointestinal: Yes: WNL, Normal Bowel Sounds, Soft. No: Distention, Tenderness Genitourinary: Yes: WNL Edema: No Neurological: Yes: WNL, Alert, Oriented Psychiatric: Yes: WNL, Alert, Oriented Labs: CBC, BMP 08/26/17 07:30 08/26/17 07:30 Problem List - Problems (1) HCAP (healthcare-associated pneumonia) Code(s): J18.9 - PNEUMONIA, UNSPECIFIED ORGANISM (2) Leukocytosis Code(s): D72.829 - ELEVATED WHITE BLOOD CELL COUNT, UNSPECIFIED Qualifiers: Leukocytosis type: bandemia Qualified Code(s): D72.825 - Bandemia (3) Afib Code(s): I48.91 - UNSPECIFIED ATRIAL FIBRILLATION Qualifiers: Atrial fibrillation type: paroxysmal Qualified Code(s): I48.0 - Paroxysmal atrial fibrillation (4) COPD (chronic obstructive pulmonary disease) Code(s): J44.9 - CHRONIC OBSTRUCTIVE PULMONARY DISEASE, UNSPECIFIED (5) Gastroparesis Code(s): K31.84 - GASTROPARESIS (6) Chronic abdominal pain Code(s): R10.9 - UNSPECIFIED ABDOMINAL PAIN; G89.29 - OTHER CHRONIC PAIN (7) Hyperlipidemia Code(s): E78.5 - HYPERLIPIDEMIA, UNSPECIFIED (8) Insomnia Code(s): G47.00 - INSOMNIA, UNSPECIFIED (9) Acute exacerbation of chronic obstructive pulmonary disease Code(s): J44.1 - CHRONIC OBSTRUCTIVE PULMONARY DISEASE W (ACUTE) EXACERBATION Assessment/Plan (1) HCAP (healthcare-associated pneumonia) Assessment/Plan: improving, wbc 25 slowly trending down, mild sob upon exertion otherwise reports feeling better levofloxacin/vanco day 2 ID consult pending transition to PO antibx once pt afebrile for 48 hours, able to take in PO Code(s): J18.9 - PNEUMONIA, UNSPECIFIED ORGANISM (2) Leukocytosis Assessment/Plan: secondary to PNA as above Code(s): D72.829 - ELEVATED WHITE BLOOD CELL COUNT, UNSPECIFIED Qualifiers: Leukocytosis type: bandemia Qualified Code(s): D72.825 - Bandemia (3) Afib Assessment/Plan: rate controlled continue metoprolol/ savaysa Code(s): I48.91 - UNSPECIFIED ATRIAL FIBRILLATION Qualifiers: Atrial fibrillation type: paroxysmal Qualified Code(s): I48.0 - Paroxysmal atrial fibrillation (4) Acute exacerbation of chronic obstructive pulmonary disease Assessment/Plan: improving continue nebs medrol per pulm o2 prn pulm following Code(s): J44.1 - CHRONIC OBSTRUCTIVE PULMONARY DISEASE W (ACUTE) EXACERBATION (5) Gastroparesis Assessment/Plan: domperidone as directed by gi followed by GI Code(s): K31.84 - GASTROPARESIS (6) Chronic abdominal pain Assessment/Plan: chronic abd pain/cramping followed by GI outpt CT unremarkable for abd/pelvis pathology zofran/ ativan prn Code(s): R10.9 - UNSPECIFIED ABDOMINAL PAIN; G89.29 - OTHER CHRONIC PAIN (7) Hyperlipidemia Assessment/Plan: chronic continue statin Code(s): E78.5 - HYPERLIPIDEMIA, UNSPECIFIED (8) Insomnia Assessment/Plan: chronic ambien 10mg prn monitor Code(s): G47.00 - INSOMNIA, UNSPECIFIED Dispo: Home
[2017-08-26] MEDS: APIXABAN 5 MG TABLET PO SCH ×2 (12:01→22:45)
--- NOTE | 2017-08-26 12:07 | EKG ---
Test Reason : Blood Pressure : / mmHG Vent. Rate : 092 BPM Atrial Rate : 092 BPM P-R Int : 124 ms QRS Dur : 088 ms QT Int : 354 ms P-R-T Axes : -12 067 -16 degrees QTc Int : 437 ms NORMAL SINUS RHYTHM NONSPECIFIC T WAVE ABNORMALITY ABNORMAL ECG Confirmed by MD SHARRI, CYNTHIA (2012) on 08/26/2017 12:07:28 PM Referred By: Confirmed By:CYNTHIA HARRELL MD
--- NOTE | 2017-08-26 12:21 | PN ---
Progress Note (short form) - Note Progress Note: Feels a little better today. Still with a congested cough. No CP. No hemoptysis. Intake & Output 08/23/17 08/24/17 08/25/17 08/26/17 23:59 23:59 23:59 23:59 Intake Total 475 Output Total 200 Balance 275 Weight 163 lb Last Vital Signs Temp Pulse Resp BP Pulse Ox 98.1 F 82 18 113/69 96 08/26/17 10:00 08/26/17 10:00 08/26/17 10:00 08/26/17 10:00 08/26/17 09:00 Active Medications Acetaminophen (Tylenol -) 650 mg PO Q4H PRN PRN Reason: PAIN LEVEL 1-5 Albuterol Sulfate (Ventolin 0.083% Nebulizer Soln -) 2.5 amp NEB RBID FRIEDA Albuterol Sulfate (Ventolin Hfa Inhaler -) 1 puff IH Q6H PRN PRN Reason: SHORTNESS OF BREATH Apixaban (Eliquis -) 5 mg PO BID [facility] Last Admin: 08/26/17 12:01 Dose: 5 mg Atorvastatin Calcium (Lipitor -) 10 mg PO HS [facility] Last Admin: 08/25/17 21:11 Dose: 10 mg Budesonide/Formoterol Fumarate (Symbicort 80/4.5mcg -) 2 puff IH BID [facility] Last Admin: 08/26/17 09:11 Dose: 2 puff Cyproheptadine HCl (Periactin -) 4 mg PO TID [facility] Last Admin: 08/26/17 05:21 Dose: 4 mg Levofloxacin (Levaquin 750 Mg Premixed Ivpb -) 750 mg in 150 mls @ 100 mls/hr IVPB DAILY [facility]; Protocol Last Admin: 08/26/17 09:10 Dose: 100 mls/hr Lactobacillus Acidophilus (Bacid -) 1 tab PO DAILY [facility] Last Admin: 08/26/17 09:10 Dose: 1 tab Lorazepam (Ativan -) 1 mg PO BID PRN PRN Reason: NAUSEA Last Admin: 08/25/17 21:18 Dose: 1 mg Metoprolol Succinate (Toprol Xl -) 25 mg PO DAILY [facility] Last Admin: 08/26/17 09:10 Dose: 25 mg Ondansetron HCl (Zofran Injection) 4 mg IVPUSH Q6H PRN PRN Reason: NAUSEA AND/OR VOMITING Roflumilast (Daliresp -) 500 mcg PO DAILY [facility] Last Admin: 08/26/17 09:10 Dose: 500 mcg Tiotropium [place] (Spiriva -) 1 puff IH DAILY [facility] Last Admin: 08/26/17 09:10 Dose: 1 puff Zolpidem Tartrate (Ambien -) 10 mg PO HS PRN PRN Reason: INSOMNIA Constitutional: Yes: Thin, No Distress Cardiovascular: Yes: Pulse Irregular. No: Gallop, Murmur Respiratory: Yes: Diminished at the bases, few basilar rhonchi. No: Accessory Muscle Use, Tachypnea, Wheezes Gastrointestinal: Yes: WNL, Normal Bowel Sounds, Soft. No: Distention, Tenderness Genitourinary: Yes: WNL Edema: No Neurological: Yes: WNL, Alert, Oriented Psychiatric: Yes: WNL, Alert, Oriented Labs: Laboratory Results - last 24 hr 08/25/17 08/25/17 08/25/17 09:47 10:00 10:00 WBC RBC Hgb Hct MCV MCH MCHC RDW Plt Count MPV Absolute Neuts (auto) Neutrophils % Neutrophils % (Manual) 91.7 H Band Neutrophils % 1.0 Lymphocytes % Lymphocytes % (Manual) 1.0 L Monocytes % Monocytes % (Manual) 4 D Eosinophils % Eosinophils % (Manual) 0.0 Basophils % Basophils % (Manual) 0.0 Myelocytes % (Man) 0 D Promyelocytes % (Man) 0 Blast Cells % (Manual) 0 Nucleated RBC % Metamyelocytes 0 Hypochromia 0 Platelet Estimate Normal Polychromasia 0 Poikilocytosis 0 Anisocytosis 1+ Microcytosis 1+ Macrocytosis 0 Sodium 142 Potassium 4.2 Chloride 108 H Carbon Dioxide 23 Anion Gap 11 BUN 16 Creatinine 1.0 Creat Clearance w eGFR > 60 Random Glucose 81 Calcium 9.2 Magnesium Total Bilirubin 1.3 H AST 16 D ALT 21 Alkaline Phosphatase 79 Creatine Kinase 106 Troponin I < 0.02 Total Protein 6.7 Albumin 3.6 Lipase 75 Urine Color Yellow Urine Appearance Clear Urine pH 5.0 Ur Specific [place] 1.026 Urine Protein 1+ H Urine Glucose (UA) Negative Urine Ketones Negative Urine Blood Negative Urine Nitrite Negative Urine Bilirubin Negative Urine Urobilinogen Negative Ur Leukocyte Esterase Negative Urine WBC (Auto) 3 Urine RBC (Auto) <1 Ur Epithelial Cells Rare Urine Mucus Many 08/25/17 08/26/17 08/26/17 10:00 07:30 07:30 WBC 25.0 H RBC 4.21 Hgb 13.2 Hct 39.7 MCV 94.1 MCH 31.4 MCHC 33.4 RDW 14.7 Plt Count 262 MPV 7.0 L Absolute Neuts (auto) 22.7 Neutrophils % 91.0 H Neutrophils % (Manual) 99.0 H Band Neutrophils % 0.0 Lymphocytes % 3.5 L Lymphocytes % (Manual) 1.0 L Monocytes % 5.4 Monocytes % (Manual) 0 L D Eosinophils % 0.0 D Eosinophils % (Manual) 0.0 Basophils % 0.1 Basophils % (Manual) 0.0 Myelocytes % (Man) 0 Promyelocytes % (Man) 0 Blast Cells % (Manual) 0 Nucleated RBC % 0 Metamyelocytes 0 Hypochromia 0 Platelet Estimate Normal Polychromasia 0 Poikilocytosis 0 Anisocytosis 1+ Microcytosis 1+ Macrocytosis 0 Sodium 142 Potassium 4.2 Chloride 112 H Carbon Dioxide 21 Anion Gap 9 BUN 15 Creatinine 0.8 Creat Clearance w eGFR > 60 Random Glucose 112 H D Calcium 9.3 Magnesium 2.1 Total Bilirubin AST ALT Alkaline Phosphatase Creatine Kinase Troponin I Total Protein Albumin Lipase 74 Urine Color Urine Appearance Urine pH Ur Specific [place] Urine Protein Urine Glucose (UA) Urine Ketones Urine Blood Urine Nitrite Urine Bilirubin Urine Urobilinogen Ur Leukocyte Esterase Urine WBC (Auto) Urine RBC (Auto) Ur Epithelial Cells Urine Mucus Problem List - Problems (1) Pneumonia Code(s): J18.9 - PNEUMONIA, UNSPECIFIED ORGANISM Qualifiers: Pneumonia type: due to unspecified organism Laterality: right Lung location: lower lobe of lung Qualified Code(s): J18.1 - Lobar pneumonia, unspecified organism (2) Abdominal pain Code(s): R10.9 - UNSPECIFIED ABDOMINAL PAIN (3) Acute exacerbation of chronic obstructive pulmonary disease Code(s): J44.1 - CHRONIC OBSTRUCTIVE PULMONARY DISEASE W (ACUTE) EXACERBATION (4) Afib Code(s): I48.91 - UNSPECIFIED ATRIAL FIBRILLATION Qualifiers: (5) IBS (irritable bowel syndrome) Code(s): K58.9 - IRRITABLE BOWEL SYNDROME WITHOUT DIARRHEA Qualifiers: (6) Nausea and vomiting Code(s): R11.2 - NAUSEA WITH VOMITING, UNSPECIFIED IMP RLL PNEUMONIA COPD ABDOMINAL PAIN ASBESTOS PLEURAL DISEASE PAF IRRITABLE BOWEL SYNDROME PLAN IV ABX INHALED BRONCHODILATORS O2 DAILY MEDROL CHECK SPUTUM CULTURES LEGIONELLA URINARY ANTIGEN SPIRIVA BD TX DALIRESP Dr Lawson
[2017-08-26] MEDS: methylPREDNISolone NA SUCC 40 MG/1 ML VIAL IVPUSH SCH (14:07)
[2017-08-26] MEDS ORDERED: VANCOMYCIN 1,000 MG in DEXTROSE 5%-WATER - 250 ML IVPB ONE (14:51)
--- NOTE | 2017-08-26 15:30 | CON.ID ---
Consult Consult Specialty:: infectious diseases Reason for Consultation:: pneumonia - History of Present Illness Chief Complaint: cough and sob History of Present Illness: 67 year old male admitted with history of non productive cough, fevers, sob and chills. Pt reports he started getting the chills and cough which was associated with fever . He reports chest discomfort when coughing. patient has been smoker in the past patient on coming to the hospital was worked up and found to have pneumonia also he mentions that initially he had sputum production denies any drugs also when he cam in he had a very high wbc count - History Source History Provided By: Patient Limitations to Obtaining History: No Limitations - Past Medical History Cardio/Vascular: Yes: AFIB, Hyperlipdemia Pulmonary: Yes: COPD Gastrointestinal: Yes: Other (fungal esophogitis) Psych: Yes: Other (Insomnia) - Past Surgical History Past Surgical History: Yes: Hernia Repair (umbillical, left inguinal) - Alcohol/Substance Use Hx Alcohol Use: No History of Substance Use: reports: None - Smoking History Smoking history: Former smoker Have you smoked in the past 12 months: No If you are a former smoker, when did you quit?: 1987 - Social History Usual Living Arrangement: With Spouse ADL: Independent Occupation: Works in construction History of Recent Travel: No Home Medications - Allergies Allergies/Adverse Reactions: Allergies Allergy/AdvReac Type Severity Reaction Status Date / Time amoxicillin Allergy Verified 08/25/17 09:18 morphine AdvReac Severe Vomiting Verified 08/25/17 09:18 oxycodone AdvReac Severe Vomiting Verified 08/25/17 09:18 - Home Medications Home Medications: Ambulatory Orders Albuterol Sulfate 2.5 mg NEB BID 05/22/17 Atorvastatin Ca [Lipitor] 10 mg PO HS 05/22/17 Metoprolol Succinate 25 mg PO DAILY 05/22/17 Roflumilast [Daliresp] 500 mcg PO DAILY 05/22/17 Tiotropium [place] [Spiriva] 1 inh IH DAILY 05/22/17 Zolpidem Tartrate [Ambien Cr] 12.5 mg PO HS 05/22/17 Edoxaban Tosylate [Savaysa] 60 mg PO DAILY 07/21/17 Fluticasone/Salmeterol [Advair 250-50 Diskus] 1 each IH BID 07/21/17 Albuterol Sulfate [Proair Hfa] 8.5 gm IH PRN 08/25/17 Cyproheptadine [Periactin -] 4 mg PO Q8H 08/25/17 Family Disease History - Family Disease History Family Disease History: Heart Disease: Father, [place]: Mother (pancreatic), Brother (lung) Review of Systems - Review of Systems Constitutional: reports: Fever Eyes: reports: No Symptoms HENT: reports: No Symptoms Neck: reports: No Symptoms Cardiovascular: reports: No Symptoms Respiratory: reports: Cough, SOB, Other Gastrointestinal: reports: No Symptoms Genitourinary: reports: No Symptoms Musculoskeletal: reports: No Symptoms Integumentary: reports: No Symptoms Neurological: reports: No Symptoms Endocrine: reports: No Symptoms Hematology/Lymphatic: reports: No Symptoms Psychiatric: reports: No Symptoms Physical Exam Vital Signs: Vital Signs Temperature 98.1 F 08/26/17 10:00 Pulse Rate 82 08/26/17 10:00 Respiratory Rate 18 08/26/17 10:00 Blood Pressure 113/69 08/26/17 10:00 O2 Sat by Pulse Oximetry (%) 96 08/26/17 09:00 Constitutional: Yes: No Distress, Calm Eyes: Yes: Conjunctiva Clear Cardiovascular: Yes: Pulse Irregular, S1 Respiratory: Yes: Regular, On Nasal O2, Poor Air Entry, Rhonchi Gastrointestinal: Yes: Normal Bowel Sounds, Soft Musculoskeletal: Yes: WNL Extremities: Yes: WNL Neurological: Yes: Alert, Oriented Psychiatric: Yes: Alert, Oriented Labs: CBC, BMP 08/26/17 07:30 08/26/17 07:30 Imaging - Results Chest X-ray: Report Reviewed, Image Reviewed Cat Scan: Report Reviewed, Image Reviewed Assessment/Plan Problem List - Problems (1) HCAP (healthcare-associated pneumonia) Code(s): J18.9 - PNEUMONIA, UNSPECIFIED ORGANISM (2) Leukocytosis Code(s): D72.829 - ELEVATED WHITE BLOOD CELL COUNT, UNSPECIFIED Qualifiers: Leukocytosis type: bandemia Qualified Code(s): D72.825 - Bandemia (3) Afib Code(s): I48.91 - UNSPECIFIED ATRIAL FIBRILLATION Qualifiers: Atrial fibrillation type: paroxysmal Qualified Code(s): I48.0 - Paroxysmal atrial fibrillation (4) COPD (chronic obstructive pulmonary disease) Code(s): J44.9 - CHRONIC OBSTRUCTIVE PULMONARY DISEASE, UNSPECIFIED (5) Gastroparesis Code(s): K31.84 - GASTROPARESIS (6) Chronic abdominal pain Code(s): R10.9 - UNSPECIFIED ABDOMINAL PAIN; G89.29 - OTHER CHRONIC PAIN (7) Hyperlipidemia Code(s): E78.5 - HYPERLIPIDEMIA, UNSPECIFIED (8) Insomnia Code(s): G47.00 - INSOMNIA, UNSPECIFIED (9) Acute exacerbation of chronic obstructive pulmonary disease Code(s): J44.1 - CHRONIC OBSTRUCTIVE PULMONARY DISEASE W (ACUTE) EXACERBATION plan will start patient on abx incentive zachary rest as per the team
[2017-08-26] MEDS: MEROPENEM 1 GM in DEXTROSE 5%-WATER 100 ML IVPB SCH (16:21)
[2017-08-26] MEDS: ATORVASTATIN CA 10 MG TABLET (FP) PO SCH (22:45)
[2017-08-26] MEDS: ZOLPIDEM TARTRATE 5 MG TABLET PO PRN (22:45)
[2017-08-27] MEDS: MEROPENEM 1 GM in DEXTROSE 5%-WATER 100 ML IVPB SCH ×3 (02:41→17:27)
[2017-08-27] MEDS ORDERED: PT OWN MED DRAWER 7, Y5N ONE (07:08)
[2017-08-27] MEDS: CYPROHEPTADINE HCL 4 MG TABLET PO SCH ×3 (07:09→21:18)
[2017-08-27 07:57] LABS: CHLORIDE 110 mmol/L (98-107); POTASSIUM 4.1 mmol/L (3.5-5.1); SODIUM 141 mmol/L (136-145)
[2017-08-27 08:00] LABS: BASO % 0.1 % (0-2.0); HEMATOCRIT 37.8 % (35.4-49); HEMOGLOBIN 12.5 GM/dL (11.7-16.9); LYMPH % 4.9 % (8-40); MCH 30.8 pg (25.7-33.7); MEAN CELL VOLUME 93.4 fl (80-96); MEAN PLT VOLUME 7.8 fl (7.5-11.1); MONO % 6.3 % (3.8-10.2); NEUT % 88.7 % (42.8-82.8); PLATELET COUNT 277 K/MM3 (134-434); RBC 4.05 M/mm3 (4.00-5.60); RDW 14.6 % (11.9-15.9); WHITE BLOOD COUNT 18.6 K/mm3 (4.0-10.0)
[2017-08-27 08:08] LABS: ANION GAP 8 (8-16); BLOOD UREA NITROGEN 19 mg/dL (7-18); CALCIUM 9.2 mg/dL (8.5-10.1); CO2 23 mmol/L (21-32); CREATININE 0.8 mg/dL (0.7-1.3); GLUCOSE,RANDOM 101 mg/dL (74-106)
[2017-08-27] MEDS: methylPREDNISolone NA SUCC 40 MG/1 ML VIAL IVPUSH SCH (09:42)
[2017-08-27] MEDS: LACTOBACILLUS ACIDOPHILUS 1 TABLET PO SCH (09:43)
[2017-08-27] MEDS: TIOTROPIUM BROMIDE 18 MCG CAPSULES IH SCH (09:43)
[2017-08-27] MEDS: metoPROLOL SUCCINATE 25 MG TAB.SR.24H (FP) PO SCH (09:43)
[2017-08-27] MEDS: APIXABAN 5 MG TABLET PO SCH ×2 (09:44→21:18)
[2017-08-27] MEDS: ROFLUMILAST 500 MCG TABLET PO SCH (09:44)
[2017-08-27] MEDS: BUDESONIDE/FORMETEROL FUMARATE 80/4.5 mcg INHALER IH SCH ×2 (09:45→21:19)
--- NOTE | 2017-08-27 10:54 | PN ---
Progress Note, Physician Chief Complaint: Pt sitting in bed in no acute distress. Reports sob and pleuritic pain. still have cough. feels better with O2 per pt. Denies any chest pain, N/V/D - Current Medication List Current Medications: Active Medications Acetaminophen (Tylenol -) 650 mg PO Q4H PRN PRN Reason: PAIN LEVEL 1-5 Albuterol Sulfate (Ventolin 0.083% Nebulizer Soln -) 2.5 amp NEB RBID [facility] Albuterol Sulfate (Ventolin Hfa Inhaler -) 1 puff IH Q6H PRN PRN Reason: SHORTNESS OF BREATH Apixaban (Eliquis -) 5 mg PO BID [facility] Last Admin: 08/27/17 09:44 Dose: 5 mg Atorvastatin Calcium (Lipitor -) 10 mg PO HS [facility] Last Admin: 08/26/17 22:45 Dose: 10 mg Budesonide/Formoterol Fumarate (Symbicort 80/4.5mcg -) 2 puff IH BID [facility] Last Admin: 08/27/17 09:45 Dose: 2 puff Cyproheptadine HCl (Periactin -) 4 mg PO TID [facility] Last Admin: 08/27/17 07:09 Dose: 4 mg Meropenem 1 gm/ Dextrose 100 mls @ 100 mls/hr IVPB Q8H-IV [facility] Last Admin: 08/27/17 09:45 Dose: 100 mls/hr Lactobacillus Acidophilus (Bacid -) 1 tab PO DAILY [facility] Last Admin: 08/27/17 09:43 Dose: 1 tab Lorazepam (Ativan -) 1 mg PO BID PRN PRN Reason: NAUSEA Last Admin: 08/25/17 21:18 Dose: 1 mg Methylprednisolone Sodium Succinate (Solu-Medrol -) 40 mg IVPUSH DAILY [facility] Stop: 08/30/17 10:01 Last Admin: 08/27/17 09:42 Dose: 40 mg Metoprolol Succinate (Toprol Xl -) 25 mg PO DAILY [facility] Last Admin: 08/27/17 09:43 Dose: 25 mg Ondansetron HCl (Zofran Injection) 4 mg IVPUSH Q6H PRN PRN Reason: NAUSEA AND/OR VOMITING Roflumilast (Daliresp -) 500 mcg PO DAILY [facility] Last Admin: 08/27/17 09:44 Dose: 500 mcg Tiotropium [place] (Spiriva -) 1 puff IH DAILY [facility] Last Admin: 08/27/17 09:43 Dose: 1 puff Zolpidem Tartrate (Ambien -) 10 mg PO HS PRN PRN Reason: INSOMNIA Last Admin: 08/26/17 22:45 Dose: 10 mg - Objective Vital Signs: Vital Signs Temperature 97.5 F L 08/27/17 05:53 Pulse Rate 72 08/27/17 05:53 Respiratory Rate 19 08/27/17 05:53 Blood Pressure 100/61 08/27/17 05:53 O2 Sat by Pulse Oximetry (%) 96 08/26/17 21:00 Constitutional: Yes: Well Nourished, No Distress, Calm Cardiovascular: Yes: Pulse Irregular. No: Gallop, Murmur Respiratory: Yes: Regular, Cough, Diminished, Rales (RLL), SOB, SOB on Exertion. No: Accessory Muscle Use, Tachypnea, Wheezes Gastrointestinal: Yes: WNL, Normal Bowel Sounds, Soft. No: Distention, Tenderness Genitourinary: Yes: WNL Edema: No Neurological: Yes: WNL, Alert, Oriented Psychiatric: Yes: WNL, Alert, Oriented Labs: CBC, BMP 08/27/17 06:30 08/27/17 06:30 Problem List - Problems (1) HCAP (healthcare-associated pneumonia) Code(s): J18.9 - PNEUMONIA, UNSPECIFIED ORGANISM (2) Leukocytosis Code(s): D72.829 - ELEVATED WHITE BLOOD CELL COUNT, UNSPECIFIED Qualifiers: Leukocytosis type: bandemia Qualified Code(s): D72.825 - Bandemia (3) Afib Code(s): I48.91 - UNSPECIFIED ATRIAL FIBRILLATION Qualifiers: Atrial fibrillation type: paroxysmal Qualified Code(s): I48.0 - Paroxysmal atrial fibrillation (4) COPD (chronic obstructive pulmonary disease) Code(s): J44.9 - CHRONIC OBSTRUCTIVE PULMONARY DISEASE, UNSPECIFIED (5) Gastroparesis Code(s): K31.84 - GASTROPARESIS (6) Chronic abdominal pain Code(s): R10.9 - UNSPECIFIED ABDOMINAL PAIN; G89.29 - OTHER CHRONIC PAIN (7) Hyperlipidemia Code(s): E78.5 - HYPERLIPIDEMIA, UNSPECIFIED (8) Insomnia Code(s): G47.00 - INSOMNIA, UNSPECIFIED (9) Acute exacerbation of chronic obstructive pulmonary disease Code(s): J44.1 - CHRONIC OBSTRUCTIVE PULMONARY DISEASE W (ACUTE) EXACERBATION Assessment/Plan (1) HCAP (healthcare-associated pneumonia) Assessment/Plan: improving, pt afebrile but reports sob IV antibx day 3 ID following- meropenem started transition to po antibx once pt clinically stable, and afebrile for 72 hours Code(s): J18.9 - PNEUMONIA, UNSPECIFIED ORGANISM (2) Leukocytosis Assessment/Plan: secondary to PNA as above Code(s): D72.829 - ELEVATED WHITE BLOOD CELL COUNT, UNSPECIFIED Qualifiers: Leukocytosis type: bandemia Qualified Code(s): D72.825 - Bandemia (3) Afib Assessment/Plan: rate controlled continue metoprolol/ savaysa Code(s): I48.91 - UNSPECIFIED ATRIAL FIBRILLATION Qualifiers: Atrial fibrillation type: paroxysmal Qualified Code(s): I48.0 - Paroxysmal atrial fibrillation (4) Acute exacerbation of chronic obstructive pulmonary disease Assessment/Plan: sob today, lung exam still very diminished continue nebs medrol per pulm o2 prn pulm following Code(s): J44.1 - CHRONIC OBSTRUCTIVE PULMONARY DISEASE W (ACUTE) EXACERBATION (5) Gastroparesis Assessment/Plan: domperidone as directed by gi followed by GI Code(s): K31.84 - GASTROPARESIS (6) Chronic abdominal pain Assessment/Plan: chronic abd pain/cramping followed by GI outpt CT unremarkable for abd/pelvis pathology zofran/ ativan prn Code(s): R10.9 - UNSPECIFIED ABDOMINAL PAIN; G89.29 - OTHER CHRONIC PAIN (7) Hyperlipidemia Assessment/Plan: chronic continue statin Code(s): E78.5 - HYPERLIPIDEMIA, UNSPECIFIED (8) Insomnia Assessment/Plan: chronic ambien 10mg prn monitor Code(s): G47.00 - INSOMNIA, UNSPECIFIED Dispo: Home
--- NOTE | 2017-08-27 13:27 | PN ---
Progress Note, Physician History of Present Illness: feeling much better no complaints breathing better wbc trending down - Current Medication List Current Medications: Active Medications Acetaminophen (Tylenol -) 650 mg PO Q4H PRN PRN Reason: PAIN LEVEL 1-5 Albuterol Sulfate (Ventolin 0.083% Nebulizer Soln -) 2.5 amp NEB RBID [facility] Albuterol Sulfate (Ventolin Hfa Inhaler -) 1 puff IH Q6H PRN PRN Reason: SHORTNESS OF BREATH Apixaban (Eliquis -) 5 mg PO BID [facility] Last Admin: 08/27/17 09:44 Dose: 5 mg Atorvastatin Calcium (Lipitor -) 10 mg PO HS [facility] Last Admin: 08/26/17 22:45 Dose: 10 mg Budesonide/Formoterol Fumarate (Symbicort 80/4.5mcg -) 2 puff IH BID [facility] Last Admin: 08/27/17 09:45 Dose: 2 puff Cyproheptadine HCl (Periactin -) 4 mg PO TID [facility] Last Admin: 08/27/17 07:09 Dose: 4 mg Meropenem 1 gm/ Dextrose 100 mls @ 100 mls/hr IVPB Q8H-IV [facility] Last Admin: 08/27/17 09:45 Dose: 100 mls/hr Lactobacillus Acidophilus (Bacid -) 1 tab PO DAILY [facility] Last Admin: 08/27/17 09:43 Dose: 1 tab Lorazepam (Ativan -) 1 mg PO BID PRN PRN Reason: NAUSEA Last Admin: 08/25/17 21:18 Dose: 1 mg Methylprednisolone Sodium Succinate (Solu-Medrol -) 40 mg IVPUSH DAILY [facility] Stop: 08/30/17 10:01 Last Admin: 08/27/17 09:42 Dose: 40 mg Metoprolol Succinate (Toprol Xl -) 25 mg PO DAILY [facility] Last Admin: 08/27/17 09:43 Dose: 25 mg Ondansetron HCl (Zofran Injection) 4 mg IVPUSH Q6H PRN PRN Reason: NAUSEA AND/OR VOMITING Roflumilast (Daliresp -) 500 mcg PO DAILY [facility] Last Admin: 08/27/17 09:44 Dose: 500 mcg Tiotropium [place] (Spiriva -) 1 puff IH DAILY [facility] Last Admin: 08/27/17 09:43 Dose: 1 puff Zolpidem Tartrate (Ambien -) 10 mg PO HS PRN PRN Reason: INSOMNIA Last Admin: 08/26/17 22:45 Dose: 10 mg - Objective Vital Signs: Vital Signs Temperature 97.5 F L 08/27/17 05:53 Pulse Rate 72 08/27/17 05:53 Respiratory Rate 19 08/27/17 05:53 Blood Pressure 100/61 08/27/17 05:53 O2 Sat by Pulse Oximetry (%) 96 08/26/17 21:00 Constitutional: Yes: No Distress, Calm Cardiovascular: Yes: Pulse Irregular Respiratory: Yes: Regular, On Nasal O2, Rhonchi Gastrointestinal: Yes: Normal Bowel Sounds, Soft Musculoskeletal: Yes: WNL Extremities: Yes: WNL Neurological: Yes: Alert, Oriented Psychiatric: Yes: Alert, Oriented Labs: CBC, BMP 08/27/17 06:30 08/27/17 06:30 Assessment/Plan Problem List - Problems (1) HCAP (healthcare-associated pneumonia) Code(s): J18.9 - PNEUMONIA, UNSPECIFIED ORGANISM (2) Leukocytosis Code(s): D72.829 - ELEVATED WHITE BLOOD CELL COUNT, UNSPECIFIED Qualifiers: Leukocytosis type: bandemia Qualified Code(s): D72.825 - Bandemia (3) Afib Code(s): I48.91 - UNSPECIFIED ATRIAL FIBRILLATION Qualifiers: Atrial fibrillation type: paroxysmal Qualified Code(s): I48.0 - Paroxysmal atrial fibrillation (4) COPD (chronic obstructive pulmonary disease) Code(s): J44.9 - CHRONIC OBSTRUCTIVE PULMONARY DISEASE, UNSPECIFIED (5) Gastroparesis Code(s): K31.84 - GASTROPARESIS (6) Chronic abdominal pain Code(s): R10.9 - UNSPECIFIED ABDOMINAL PAIN; G89.29 - OTHER CHRONIC PAIN (7) Hyperlipidemia Code(s): E78.5 - HYPERLIPIDEMIA, UNSPECIFIED (8) Insomnia Code(s): G47.00 - INSOMNIA, UNSPECIFIED (9) Acute exacerbation of chronic obstructive pulmonary disease Code(s): J44.1 - CHRONIC OBSTRUCTIVE PULMONARY DISEASE W (ACUTE) EXACERBATION plan continue abx incentive zachary rest as per the team patient improving
--- NOTE | 2017-08-27 14:16 | PN ---
Progress Note, Physician History of Present Illness: pulmonary alert,still c/o sob,+cough. - Current Medication List Current Medications: Active Medications Acetaminophen (Tylenol -) 650 mg PO Q4H PRN PRN Reason: PAIN LEVEL 1-5 Albuterol Sulfate (Ventolin 0.083% Nebulizer Soln -) 2.5 amp NEB RBID [facility] Albuterol Sulfate (Ventolin Hfa Inhaler -) 1 puff IH Q6H PRN PRN Reason: SHORTNESS OF BREATH Apixaban (Eliquis -) 5 mg PO BID [facility] Last Admin: 08/27/17 09:44 Dose: 5 mg Atorvastatin Calcium (Lipitor -) 10 mg PO HS [facility] Last Admin: 08/26/17 22:45 Dose: 10 mg Budesonide/Formoterol Fumarate (Symbicort 80/4.5mcg -) 2 puff IH BID [facility] Last Admin: 08/27/17 09:45 Dose: 2 puff Cyproheptadine HCl (Periactin -) 4 mg PO TID [facility] Last Admin: 08/27/17 07:09 Dose: 4 mg Meropenem 1 gm/ Dextrose 100 mls @ 100 mls/hr IVPB Q8H-IV [facility] Last Admin: 08/27/17 09:45 Dose: 100 mls/hr Lactobacillus Acidophilus (Bacid -) 1 tab PO DAILY [facility] Last Admin: 08/27/17 09:43 Dose: 1 tab Lorazepam (Ativan -) 1 mg PO BID PRN PRN Reason: NAUSEA Last Admin: 08/25/17 21:18 Dose: 1 mg Methylprednisolone Sodium Succinate (Solu-Medrol -) 40 mg IVPUSH DAILY [facility] Stop: 08/30/17 10:01 Last Admin: 08/27/17 09:42 Dose: 40 mg Metoprolol Succinate (Toprol Xl -) 25 mg PO DAILY [facility] Last Admin: 08/27/17 09:43 Dose: 25 mg Ondansetron HCl (Zofran Injection) 4 mg IVPUSH Q6H PRN PRN Reason: NAUSEA AND/OR VOMITING Roflumilast (Daliresp -) 500 mcg PO DAILY [facility] Last Admin: 08/27/17 09:44 Dose: 500 mcg Tiotropium [place] (Spiriva -) 1 puff IH DAILY [facility] Last Admin: 08/27/17 09:43 Dose: 1 puff Zolpidem Tartrate (Ambien -) 10 mg PO HS PRN PRN Reason: INSOMNIA Last Admin: 08/26/17 22:45 Dose: 10 mg - Objective Vital Signs: Vital Signs Temperature 97.5 F L 08/27/17 05:53 Pulse Rate 72 08/27/17 05:53 Respiratory Rate 19 08/27/17 05:53 Blood Pressure 100/61 08/27/17 05:53 O2 Sat by Pulse Oximetry (%) 96 08/26/17 21:00 Constitutional: Yes: Well Nourished, Calm Eyes: Yes: WNL HENT: Yes: WNL Neck: Yes: WNL Cardiovascular: Yes: Regular Rate and Rhythm, S1, S2 Respiratory: Yes: Rales (crackles R base) Gastrointestinal: Yes: Normal Bowel Sounds, Soft Extremities: Yes: WNL Edema: No Labs: CBC, BMP 08/27/17 06:30 08/27/17 06:30 Problem List - Problems (1) Pneumonia Code(s): J18.9 - PNEUMONIA, UNSPECIFIED ORGANISM Qualifiers: Pneumonia type: due to unspecified organism Laterality: right Lung location: lower lobe of lung Qualified Code(s): J18.1 - Lobar pneumonia, unspecified organism (2) Abdominal pain Code(s): R10.9 - UNSPECIFIED ABDOMINAL PAIN (3) Acute exacerbation of chronic obstructive pulmonary disease Code(s): J44.1 - CHRONIC OBSTRUCTIVE PULMONARY DISEASE W (ACUTE) EXACERBATION (4) Afib Code(s): I48.91 - UNSPECIFIED ATRIAL FIBRILLATION Qualifiers: Atrial fibrillation type: paroxysmal Qualified Code(s): I48.0 - Paroxysmal atrial fibrillation (5) IBS (irritable bowel syndrome) Code(s): K58.9 - IRRITABLE BOWEL SYNDROME WITHOUT DIARRHEA Qualifiers: (6) Nausea and vomiting Code(s): R11.2 - NAUSEA WITH VOMITING, UNSPECIFIED Assessment/Plan IMP RLL PNEUMONIA COPD ABDOMINAL PAIN ASBESTOS PLEURAL DISEASE PAF IRRITABLE BOWEL SYNDROME PLAN IV ABX PER ID INHALED BRONCHODILATORS O2 IVF AC DR BROCK Problem List - Problems (1) Pneumonia Code(s): J18.9 - PNEUMONIA, UNSPECIFIED ORGANISM Qualifiers: Pneumonia type: due to unspecified organism Laterality: right Lung location: lower lobe of lung Qualified Code(s): J18.1 - Lobar pneumonia, unspecified organism (2) Abdominal pain Code(s): R10.9 - UNSPECIFIED ABDOMINAL PAIN (3) Acute exacerbation of chronic obstructive pulmonary disease Code(s): J44.1 - CHRONIC OBSTRUCTIVE PULMONARY DISEASE W (ACUTE) EXACERBATION (4) Afib Code(s): I48.91 - UNSPECIFIED ATRIAL FIBRILLATION Qualifiers: (5) IBS (irritable bowel syndrome) Code(s): K58.9 - IRRITABLE BOWEL SYNDROME WITHOUT DIARRHEA Qualifiers: (6) Nausea and vomiting Code(s): R11.2 - NAUSEA WITH VOMITING, UNSPECIFIED
[2017-08-27] MEDS: ATORVASTATIN CA 10 MG TABLET (FP) PO SCH (21:18)
[2017-08-27] MEDS: ZOLPIDEM TARTRATE 5 MG TABLET PO PRN (23:03)
[2017-08-28] MEDS: MEROPENEM 1 GM in DEXTROSE 5%-WATER 100 ML IVPB SCH ×3 (01:22→17:34)
[2017-08-28] MEDS: CYPROHEPTADINE HCL 4 MG TABLET PO SCH ×3 (05:31→21:11)
[2017-08-28 07:33] LABS: BASO % 0.1 % (0-2.0); EOS % 0.1 % (0-4.5); HEMOGLOBIN 13.2 GM/dL (11.7-16.9); LYMPH % 10.7 % (8-40); MCH 30.9 pg (25.7-33.7); MCHC 32.9 g/dl (32.0-35.9); MEAN CELL VOLUME 93.8 fl (80-96); MEAN PLT VOLUME 7.8 fl (7.5-11.1); MONO % 8.4 % (3.8-10.2); NEUT % 80.7 % (42.8-82.8); PLATELET COUNT 304 K/MM3 (134-434); RBC 4.27 M/mm3 (4.00-5.60); RDW 14.6 % (11.9-15.9); WHITE BLOOD COUNT 13.3 K/mm3 (4.0-10.0)
[2017-08-28 08:01] LABS: ANION GAP 10 (8-16); BLOOD UREA NITROGEN 22 mg/dL (7-18); CALCIUM 8.7 mg/dL (8.5-10.1); CHLORIDE 113 mmol/L (98-107); CO2 23 mmol/L (21-32); CREATININE 0.8 mg/dL (0.7-1.3); GLUCOSE,RANDOM 87 mg/dL (74-106); SODIUM 146 mmol/L (136-145)
[2017-08-28] MEDS: BUDESONIDE/FORMETEROL FUMARATE 80/4.5 mcg INHALER IH SCH ×2 (09:26→21:12)
[2017-08-28] MEDS: TIOTROPIUM BROMIDE 18 MCG CAPSULES IH SCH (09:27)
[2017-08-28] MEDS: methylPREDNISolone NA SUCC 40 MG/1 ML VIAL IVPUSH SCH (09:28)
[2017-08-28] MEDS: metoPROLOL SUCCINATE 25 MG TAB.SR.24H (FP) PO SCH (09:31)
[2017-08-28] MEDS: LACTOBACILLUS ACIDOPHILUS 1 TABLET PO SCH (09:31)
[2017-08-28] MEDS: APIXABAN 5 MG TABLET PO SCH ×2 (09:32→21:11)
[2017-08-28] MEDS: ROFLUMILAST 500 MCG TABLET PO SCH (09:32)
--- NOTE | 2017-08-28 09:59 | PN ---
Progress Note, Physician History of Present Illness: says he feels very congested very sob since he was off of nasal canula tired - Current Medication List Current Medications: Active Medications Acetaminophen (Tylenol -) 650 mg PO Q4H PRN PRN Reason: PAIN LEVEL 1-5 Albuterol Sulfate (Ventolin 0.083% Nebulizer Soln -) 2.5 amp NEB RBID [facility]RI[facility] Albuterol Sulfate (Ventolin Hfa Inhaler -) 1 puff IH Q6H PRN PRN Reason: SHORTNESS OF BREATH Apixaban (Eliquis -) 5 mg PO BID [facility] Last Admin: 08/28/17 09:32 Dose: 5 mg Atorvastatin Calcium (Lipitor -) 10 mg PO HS [facility] Last Admin: 08/27/17 21:18 Dose: 10 mg Budesonide/Formoterol Fumarate (Symbicort 80/4.5mcg -) 2 puff IH BID [facility] Last Admin: 08/28/17 09:26 Dose: 2 puff Cyproheptadine HCl (Periactin -) 4 mg PO TID [facility] Last Admin: 08/28/17 05:31 Dose: 4 mg Meropenem 1 gm/ Dextrose 100 mls @ 100 mls/hr IVPB Q8H-IV [facility] Last Admin: 08/28/17 09:30 Dose: 100 mls/hr Lactobacillus Acidophilus (Bacid -) 1 tab PO DAILY [facility] Last Admin: 08/28/17 09:31 Dose: 1 tab Lorazepam (Ativan -) 1 mg PO BID PRN PRN Reason: NAUSEA Last Admin: 08/25/17 21:18 Dose: 1 mg Methylprednisolone Sodium Succinate (Solu-Medrol -) 40 mg IVPUSH DAILY [facility] Stop: 08/30/17 10:01 Last Admin: 08/28/17 09:28 Dose: 40 mg Metoprolol Succinate (Toprol Xl -) 25 mg PO DAILY [facility] Last Admin: 08/28/17 09:31 Dose: 25 mg Ondansetron HCl (Zofran Injection) 4 mg IVPUSH Q6H PRN PRN Reason: NAUSEA AND/OR VOMITING Roflumilast (Daliresp -) 500 mcg PO DAILY [facility] Last Admin: 08/28/17 09:32 Dose: 500 mcg Tiotropium [place] (Spiriva -) 1 puff IH DAILY [facility] Last Admin: 08/28/17 09:27 Dose: 1 puff Zolpidem Tartrate (Ambien -) 10 mg PO HS PRN PRN Reason: INSOMNIA Last Admin: 08/27/17 23:03 Dose: 10 mg - Objective Vital Signs: Vital Signs Temperature 97.6 F 08/28/17 05:57 Pulse Rate 82 08/28/17 05:57 Respiratory Rate 20 08/28/17 05:57 Blood Pressure 115/65 08/28/17 05:57 O2 Sat by Pulse Oximetry (%) 97 08/27/17 20:14 Constitutional: Yes: Calm, Mild Distress Cardiovascular: Yes: Pulse Irregular Respiratory: Yes: On Nasal O2, Poor Air Entry, Rhonchi Gastrointestinal: Yes: Normal Bowel Sounds, Soft Musculoskeletal: Yes: WNL Extremities: Yes: WNL Neurological: Yes: Alert, Oriented Psychiatric: Yes: Alert, Oriented Labs: CBC, BMP 08/28/17 06:30 08/28/17 06:30 Assessment/Plan Problem List - Problems (1) HCAP (healthcare-associated pneumonia) Code(s): J18.9 - PNEUMONIA, UNSPECIFIED ORGANISM (2) Leukocytosis Code(s): D72.829 - ELEVATED WHITE BLOOD CELL COUNT, UNSPECIFIED Qualifiers: Leukocytosis type: bandemia Qualified Code(s): D72.825 - Bandemia (3) Afib Code(s): I48.91 - UNSPECIFIED ATRIAL FIBRILLATION Qualifiers: Atrial fibrillation type: paroxysmal Qualified Code(s): I48.0 - Paroxysmal atrial fibrillation (4) COPD (chronic obstructive pulmonary disease) Code(s): J44.9 - CHRONIC OBSTRUCTIVE PULMONARY DISEASE, UNSPECIFIED (5) Gastroparesis Code(s): K31.84 - GASTROPARESIS (6) Chronic abdominal pain Code(s): R10.9 - UNSPECIFIED ABDOMINAL PAIN; G89.29 - OTHER CHRONIC PAIN (7) Hyperlipidemia Code(s): E78.5 - HYPERLIPIDEMIA, UNSPECIFIED (8) Insomnia Code(s): G47.00 - INSOMNIA, UNSPECIFIED (9) Acute exacerbation of chronic obstructive pulmonary disease Code(s): J44.1 - CHRONIC OBSTRUCTIVE PULMONARY DISEASE W (ACUTE) EXACERBATION plan continue abx incentive zachary rest as per the team patient improving
--- NOTE | 2017-08-28 11:37 | PN ---
Progress Note (short form) - Note Progress Note: Feels a little better today, but not at baseline. Still with a congested cough. No CP. No hemoptysis. Intake & Output 08/25/17 08/26/17 08/27/17 08/28/17 23:59 23:59 23:59 23:59 Intake Total 1300 1430 400 Output Total 200 Balance 1100 1430 400 Weight 163 lb Last Vital Signs Temp Pulse Resp BP Pulse Ox 97.6 F 82 20 115/65 97 08/28/17 05:57 08/28/17 05:57 08/28/17 05:57 08/28/17 05:57 08/27/17 20:14 Active Medications Acetaminophen (Tylenol -) 650 mg PO Q4H PRN PRN Reason: PAIN LEVEL 1-5 Albuterol Sulfate (Ventolin 0.083% Nebulizer Soln -) 2.5 amp NEB RBID [facility] Albuterol Sulfate (Ventolin Hfa Inhaler -) 1 puff IH Q6H PRN PRN Reason: SHORTNESS OF BREATH Apixaban (Eliquis -) 5 mg PO BID [facility] Last Admin: 08/28/17 09:32 Dose: 5 mg Atorvastatin Calcium (Lipitor -) 10 mg PO HS [facility] Last Admin: 08/27/17 21:18 Dose: 10 mg Budesonide/Formoterol Fumarate (Symbicort 80/4.5mcg -) 2 puff IH BID [facility] Last Admin: 08/28/17 09:26 Dose: 2 puff Cyproheptadine HCl (Periactin -) 4 mg PO TID [facility] Last Admin: 08/28/17 05:31 Dose: 4 mg Meropenem 1 gm/ Dextrose 100 mls @ 100 mls/hr IVPB Q8H-IV [facility] Last Admin: 08/28/17 09:30 Dose: 100 mls/hr Lactobacillus Acidophilus (Bacid -) 1 tab PO DAILY [facility] Last Admin: 08/28/17 09:31 Dose: 1 tab Lorazepam (Ativan -) 1 mg PO BID PRN PRN Reason: NAUSEA Last Admin: 08/25/17 21:18 Dose: 1 mg Methylprednisolone Sodium Succinate (Solu-Medrol -) 40 mg IVPUSH DAILY [facility] Stop: 08/30/17 10:01 Last Admin: 07/12/18 09:28 Dose: 40 mg Metoprolol Succinate (Toprol Xl -) 25 mg PO DAILY [facility] Last Admin: 08/28/17 09:31 Dose: 25 mg Ondansetron HCl (Zofran Injection) 4 mg IVPUSH Q6H PRN PRN Reason: NAUSEA AND/OR VOMITING Roflumilast (Daliresp -) 500 mcg PO DAILY [facility] Last Admin: 08/28/17 09:32 Dose: 500 mcg Tiotropium [place] (Spiriva -) 1 puff IH DAILY [facility] Last Admin: 08/28/17 09:27 Dose: 1 puff Zolpidem Tartrate (Ambien -) 10 mg PO HS PRN PRN Reason: INSOMNIA Last Admin: 08/27/17 23:03 Dose: 10 mg Constitutional: Yes: Thin, No Distress Cardiovascular: Yes: Pulse Irregular. No: Gallop, Murmur Respiratory: Yes: Diminished at the bases, few basilar rhonchi. No: Accessory Muscle Use, Tachypnea, Wheezes Gastrointestinal: Yes: WNL, Normal Bowel Sounds, Soft. No: Distention, Tenderness Genitourinary: Yes: WNL Edema: No Neurological: Yes: WNL, Alert, Oriented Psychiatric: Yes: WNL, Alert, Oriented Labs: Laboratory Results - last 24 hr 08/28/17 08/28/17 06:30 06:30 WBC 13.3 H RBC 4.27 Hgb 13.2 Hct 40.0 MCV 93.8 MCH 30.9 MCHC 32.9 RDW 14.6 Plt Count 304 MPV 7.8 Absolute Neuts (auto) 10.7 Neutrophils % 80.7 Lymphocytes % 10.7 D Monocytes % 8.4 Eosinophils % 0.1 D Basophils % 0.1 Nucleated RBC % 0 Sodium 146 H Potassium 4.0 Chloride 113 H Carbon Dioxide 23 Anion Gap 10 BUN 22 H Creatinine 0.8 Creat Clearance w eGFR > 60 Random Glucose 87 Calcium 8.7 Problem List - Problems (1) Pneumonia Code(s): J18.9 - PNEUMONIA, UNSPECIFIED ORGANISM Qualifiers: Pneumonia type: due to unspecified organism Laterality: right Lung location: lower lobe of lung Qualified Code(s): J18.1 - Lobar pneumonia, unspecified organism (2) Abdominal pain Code(s): R10.9 - UNSPECIFIED ABDOMINAL PAIN (3) Acute exacerbation of chronic obstructive pulmonary disease Code(s): J44.1 - CHRONIC OBSTRUCTIVE PULMONARY DISEASE W (ACUTE) EXACERBATION (4) Afib Code(s): I48.91 - UNSPECIFIED ATRIAL FIBRILLATION Qualifiers: (5) IBS (irritable bowel syndrome) Code(s): K58.9 - IRRITABLE BOWEL SYNDROME WITHOUT DIARRHEA Qualifiers: (6) Nausea and vomiting Code(s): R11.2 - NAUSEA WITH VOMITING, UNSPECIFIED IMP RLL PNEUMONIA COPD ABDOMINAL PAIN ASBESTOS PLEURAL DISEASE PAF IRRITABLE BOWEL SYNDROME PLAN IV ABX PER ID INHALED BRONCHODILATORS O2 MEDROL SPIRIVA BD TX DALIRESP Dr Lawson
--- NOTE | 2017-08-28 12:51 | PN ---
Progress Note, Physician Chief Complaint: Pt sitting in bed in no acute distress. Reports sob but he does report he has baseline sob at home as well, denies worsening sob. cough improved. still has upper airway congestion. reports he is feeling better. Denies any chest pain, N/ V/D - Current Medication List Current Medications: Active Medications Acetaminophen (Tylenol -) 650 mg PO Q4H PRN PRN Reason: PAIN LEVEL 1-5 Albuterol Sulfate (Ventolin 0.083% Nebulizer Soln -) 2.5 amp NEB RBID [facility] Albuterol Sulfate (Ventolin Hfa Inhaler -) 1 puff IH Q6H PRN PRN Reason: SHORTNESS OF BREATH Apixaban (Eliquis -) 5 mg PO BID [facility] Last Admin: 08/28/17 09:32 Dose: 5 mg Atorvastatin Calcium (Lipitor -) 10 mg PO HS [facility] Last Admin: 08/27/17 21:18 Dose: 10 mg Budesonide/Formoterol Fumarate (Symbicort 80/4.5mcg -) 2 puff IH BID [facility] Last Admin: 08/28/17 09:26 Dose: 2 puff Cyproheptadine HCl (Periactin -) 4 mg PO TID [facility] Last Admin: 08/28/17 05:31 Dose: 4 mg Meropenem 1 gm/ Dextrose 100 mls @ 100 mls/hr IVPB Q8H-IV [facility] Last Admin: 08/28/17 09:30 Dose: 100 mls/hr Lactobacillus Acidophilus (Bacid -) 1 tab PO DAILY [facility] Last Admin: 08/28/17 09:31 Dose: 1 tab Lorazepam (Ativan -) 1 mg PO BID PRN PRN Reason: NAUSEA Last Admin: 08/25/17 21:18 Dose: 1 mg Methylprednisolone Sodium Succinate (Solu-Medrol -) 40 mg IVPUSH DAILY [facility] Stop: 08/30/17 10:01 Last Admin: 08/28/17 09:28 Dose: 40 mg Metoprolol Succinate (Toprol Xl -) 25 mg PO DAILY [facility] Last Admin: 08/28/17 09:31 Dose: 25 mg Ondansetron HCl (Zofran Injection) 4 mg IVPUSH Q6H PRN PRN Reason: NAUSEA AND/OR VOMITING Roflumilast (Daliresp -) 500 mcg PO DAILY [facility] Last Admin: 08/28/17 09:32 Dose: 500 mcg Tiotropium [place] (Spiriva -) 1 puff IH DAILY [facility] Last Admin: 08/28/17 09:27 Dose: 1 puff Zolpidem Tartrate (Ambien -) 10 mg PO HS PRN PRN Reason: INSOMNIA Last Admin: 08/27/17 23:03 Dose: 10 mg - Objective Vital Signs: Vital Signs Temperature 97.6 F 08/28/17 05:57 Pulse Rate 82 08/28/17 05:57 Respiratory Rate 20 08/28/17 05:57 Blood Pressure 115/65 08/28/17 05:57 O2 Sat by Pulse Oximetry (%) 97 08/27/17 20:14 Constitutional: Yes: Well Nourished, No Distress, Calm Cardiovascular: Yes: Pulse Irregular. No: Murmur, Rub Respiratory: Yes: Regular, Diminished, Rales (RLL), SOB. No: Accessory Muscle Use, Tachypnea, Wheezes Gastrointestinal: Yes: WNL, Normal Bowel Sounds, Soft. No: Distention, Tenderness Genitourinary: Yes: WNL Extremities: Yes: WNL Edema: No Neurological: Yes: WNL, Alert, Oriented Psychiatric: Yes: WNL, Alert, Oriented Labs: CBC, BMP 08/28/17 06:30 08/28/17 06:30 Problem List - Problems (1) HCAP (healthcare-associated pneumonia) Code(s): J18.9 - PNEUMONIA, UNSPECIFIED ORGANISM (2) Leukocytosis Code(s): D72.829 - ELEVATED WHITE BLOOD CELL COUNT, UNSPECIFIED Qualifiers: Leukocytosis type: bandemia Qualified Code(s): D72.825 - Bandemia (3) Afib Code(s): I48.91 - UNSPECIFIED ATRIAL FIBRILLATION Qualifiers: Atrial fibrillation type: paroxysmal Qualified Code(s): I48.0 - Paroxysmal atrial fibrillation (4) COPD (chronic obstructive pulmonary disease) Code(s): J44.9 - CHRONIC OBSTRUCTIVE PULMONARY DISEASE, UNSPECIFIED (5) Gastroparesis Code(s): K31.84 - GASTROPARESIS (6) Chronic abdominal pain Code(s): R10.9 - UNSPECIFIED ABDOMINAL PAIN; G89.29 - OTHER CHRONIC PAIN (7) Hyperlipidemia Code(s): E78.5 - HYPERLIPIDEMIA, UNSPECIFIED (8) Insomnia Code(s): G47.00 - INSOMNIA, UNSPECIFIED (9) Acute exacerbation of chronic obstructive pulmonary disease Code(s): J44.1 - CHRONIC OBSTRUCTIVE PULMONARY DISEASE W (ACUTE) EXACERBATION Assessment/Plan (1) HCAP (healthcare-associated pneumonia) Assessment/Plan: improving, pt afebrile since admission IV antibx day 4 On meropenem per ID Code(s): J18.9 - PNEUMONIA, UNSPECIFIED ORGANISM (2) Leukocytosis Assessment/Plan: improved secondary to PNA as above Code(s): D72.829 - ELEVATED WHITE BLOOD CELL COUNT, UNSPECIFIED Qualifiers: Leukocytosis type: bandemia Qualified Code(s): D72.825 - Bandemia (3) Afib Assessment/Plan: rate controlled continue metoprolol/ savaysa Code(s): I48.91 - UNSPECIFIED ATRIAL FIBRILLATION Qualifiers: Atrial fibrillation type: paroxysmal Qualified Code(s): I48.0 - Paroxysmal atrial fibrillation (4) Acute exacerbation of chronic obstructive pulmonary disease Assessment/Plan: lung exam improved today still has sob- which is chronic, reports he feels better with O2 Pre& post ordered continue nebs continue medrol per pulm- transition to PO tomorrow o2 prn pulm following Code(s): J44.1 - CHRONIC OBSTRUCTIVE PULMONARY DISEASE W (ACUTE) EXACERBATION (5) Gastroparesis Assessment/Plan: domperidone as directed by gi followed by GI Code(s): K31.84 - GASTROPARESIS (6) Chronic abdominal pain Assessment/Plan: chronic abd pain/cramping followed by GI outpt CT unremarkable for abd/pelvis pathology zofran/ ativan prn Code(s): R10.9 - UNSPECIFIED ABDOMINAL PAIN; G89.29 - OTHER CHRONIC PAIN (7) Hyperlipidemia Assessment/Plan: chronic continue statin Code(s): E78.5 - HYPERLIPIDEMIA, UNSPECIFIED (8) Insomnia Assessment/Plan: chronic ambien 10mg prn monitor Code(s): G47.00 - INSOMNIA, UNSPECIFIED Dispo: Home when cleared by Pulm. Case discussed with Pulm and ID. Possible d/c tomorrow
[2017-08-28] MEDS ORDERED: PT OWN MED DRAWER 7, Y5N ONE (21:03)
[2017-08-28] MEDS: ATORVASTATIN CA 10 MG TABLET (FP) PO SCH (21:11)
[2017-08-28] MEDS: ZOLPIDEM TARTRATE 5 MG TABLET PO PRN (22:24)
[2017-08-29] MEDS: MEROPENEM 1 GM in DEXTROSE 5%-WATER 100 ML IVPB SCH ×2 (01:00→09:44)
[2017-08-29] MEDS: CYPROHEPTADINE HCL 4 MG TABLET PO SCH ×2 (05:46→14:09)
[2017-08-29] MEDS ORDERED: PT OWN MED DRAWER 7, Y5N ONE (09:34)
[2017-08-29 09:41] VITALS: BP 117/68; TEMP 97.5
[2017-08-29] MEDS: ALBUTEROL SO4 0.083% IH SOL 2.5 MG/3 ML VIAL.NEB. NEB SCH ×3 (09:42→10:30)
[2017-08-29] MEDS: metoPROLOL SUCCINATE 25 MG TAB.SR.24H (FP) PO SCH (09:43)
[2017-08-29] MEDS: TIOTROPIUM BROMIDE 18 MCG CAPSULES IH SCH (09:43)
[2017-08-29] MEDS: APIXABAN 5 MG TABLET PO SCH (09:43)
[2017-08-29] MEDS: ROFLUMILAST 500 MCG TABLET PO SCH (09:43)
[2017-08-29] MEDS: BUDESONIDE/FORMETEROL FUMARATE 80/4.5 mcg INHALER IH SCH (09:44)
[2017-08-29] MEDS: LACTOBACILLUS ACIDOPHILUS 1 TABLET PO SCH (09:44)
[2017-08-29] MEDS: methylPREDNISolone NA SUCC 40 MG/1 ML VIAL IVPUSH SCH (09:44)
[2017-08-29 10:40] VITALS: PULSE 75
--- NOTE | 2017-08-29 11:10 | PN ---
Progress Note, Physician History of Present Illness: patient doing well breathing better no complaints was able to walk without oxygen maintaining oxygen sat - Current Medication List Current Medications: Active Medications Acetaminophen (Tylenol -) 650 mg PO Q4H PRN PRN Reason: PAIN LEVEL 1-5 Albuterol Sulfate (Ventolin 0.083% Nebulizer Soln -) 2.5 amp NEB RBID [facility] Last Admin: 08/29/17 10:30 Dose: Not Given Albuterol Sulfate (Ventolin Hfa Inhaler -) 1 puff IH Q6H PRN PRN Reason: SHORTNESS OF BREATH Apixaban (Eliquis -) 5 mg PO BID [facility] Last Admin: 08/29/17 09:43 Dose: 5 mg Atorvastatin Calcium (Lipitor -) 10 mg PO HS [facility] Last Admin: 08/28/17 21:11 Dose: 10 mg Budesonide/Formoterol Fumarate (Symbicort 80/4.5mcg -) 2 puff IH BID [facility] Last Admin: 08/29/17 09:44 Dose: 2 puff Cyproheptadine HCl (Periactin -) 4 mg PO TID [facility] Last Admin: 08/29/17 05:46 Dose: 4 mg Meropenem 1 gm/ Dextrose 100 mls @ 100 mls/hr IVPB Q8H-IV [facility] Last Admin: 08/29/17 09:44 Dose: 100 mls/hr Lactobacillus Acidophilus (Bacid -) 1 tab PO DAILY [facility] Last Admin: 08/29/17 09:44 Dose: 1 tab Lorazepam (Ativan -) 1 mg PO BID PRN PRN Reason: NAUSEA Last Admin: 08/25/17 21:18 Dose: 1 mg Methylprednisolone Sodium Succinate (Solu-Medrol -) 40 mg IVPUSH DAILY [facility] Stop: 08/30/17 10:01 Last Admin: 08/29/17 09:44 Dose: 40 mg Metoprolol Succinate (Toprol Xl -) 25 mg PO DAILY [facility] Last Admin: 08/29/17 09:43 Dose: 25 mg Ondansetron HCl (Zofran Injection) 4 mg IVPUSH Q6H PRN PRN Reason: NAUSEA AND/OR VOMITING Last Admin: 08/29/17 05:50 Dose: 4 mg Roflumilast (Daliresp -) 500 mcg PO DAILY [facility] Last Admin: 08/29/17 09:43 Dose: 500 mcg Tiotropium [place] (Spiriva -) 1 puff IH DAILY [facility] Last Admin: 08/29/17 09:43 Dose: 1 puff Zolpidem Tartrate (Ambien -) 10 mg PO HS PRN PRN Reason: INSOMNIA Last Admin: 08/28/17 22:24 Dose: 10 mg - Objective Vital Signs: Vital Signs Temperature 97.5 F L 08/29/17 09:41 Pulse Rate 75 08/29/17 10:38 Respiratory Rate 20 08/29/17 09:41 Blood Pressure 117/68 08/29/17 09:41 O2 Sat by Pulse Oximetry (%) 94 L 08/29/17 10:38 Constitutional: Yes: No Distress, Calm Cardiovascular: Yes: Regular Rate and Rhythm Respiratory: Yes: Regular, CTA Bilaterally Gastrointestinal: Yes: Normal Bowel Sounds, Soft Musculoskeletal: Yes: WNL Extremities: Yes: WNL Neurological: Yes: Alert, Oriented Psychiatric: Yes: Alert, Oriented Labs: CBC, BMP 08/28/17 06:30 08/28/17 06:30 Assessment/Plan Problem List - Problems (1) HCAP (healthcare-associated pneumonia) Code(s): J18.9 - PNEUMONIA, UNSPECIFIED ORGANISM (2) Leukocytosis Code(s): D72.829 - ELEVATED WHITE BLOOD CELL COUNT, UNSPECIFIED Qualifiers: Leukocytosis type: bandemia Qualified Code(s): D72.825 - Bandemia (3) Afib Code(s): I48.91 - UNSPECIFIED ATRIAL FIBRILLATION Qualifiers: Atrial fibrillation type: paroxysmal Qualified Code(s): I48.0 - Paroxysmal atrial fibrillation (4) COPD (chronic obstructive pulmonary disease) Code(s): J44.9 - CHRONIC OBSTRUCTIVE PULMONARY DISEASE, UNSPECIFIED (5) Gastroparesis Code(s): K31.84 - GASTROPARESIS (6) Chronic abdominal pain Code(s): R10.9 - UNSPECIFIED ABDOMINAL PAIN; G89.29 - OTHER CHRONIC PAIN (7) Hyperlipidemia Code(s): E78.5 - HYPERLIPIDEMIA, UNSPECIFIED (8) Insomnia Code(s): G47.00 - INSOMNIA, UNSPECIFIED (9) Acute exacerbation of chronic obstructive pulmonary disease Code(s): J44.1 - CHRONIC OBSTRUCTIVE PULMONARY DISEASE W (ACUTE) EXACERBATION plan continue abx can switch to oral doxy for another 5 days doxy 100 mg po bid rest ct current mgmt
--- NOTE | 2017-08-29 11:16 | DS ---
Physical Examination Vital Signs: Vital Signs Temperature 97.5 F L 08/29/17 09:41 Pulse Rate 75 08/29/17 10:38 Respiratory Rate 20 08/29/17 09:41 Blood Pressure 117/68 08/29/17 09:41 O2 Sat by Pulse Oximetry (%) 94 L 08/29/17 10:38 Constitutional: Yes: Well Nourished, No Distress, Calm Cardiovascular: Yes: Pulse Irregular. No: Gallop, Murmur Respiratory: Yes: Regular, Cough, Diminished (better air movement), Rales ( bibasilar- improved), SOB. No: Accessory Muscle Use, Rhonchi, Tachypnea, Wheezes Gastrointestinal: Yes: WNL, Normal Bowel Sounds, Soft. No: Distention, Tenderness Renal/: Yes: WNL Extremities: Yes: WNL Edema: No Neurological: Yes: WNL, Alert, Oriented Psychiatric: Yes: WNL, Alert, Oriented Labs: CBC, BMP 08/28/17 06:30 08/28/17 06:30 Discharge Summary Reason For Visit: PNEUMONIA Current Active Problems Chronic abdominal pain (Acute) HCAP (healthcare-associated pneumonia) (Acute) Insomnia (Acute) Pneumonia (Acute) Hospital Course: is a pleasant 67 year old male with pmh significant for COPD, admitted for RLL PNA and acute copd exacerbation. Pt has been in the hospital within last 3 months. Pt evaluated by ID and pulm. Pt received 1 day of levofloxacin and vanco, 4 days of Meropenem,transitioned to po clindamycin for 5 more days. He has remained afebrile, wbcs trended down and wnl today. Sob at baseline. pre-post O2sat mid 90s. Received 5 days of medrol by pulm. Lung exam significantly better today, better air entry. Otherwise, pt is medically stable for discharge from hospital. f/u as directed Condition: Good - Instructions Diet, Activity, Other Instructions: resume prev diet, activity start antibx tomorrow- doxycycline twice a day x 5 days lactobacillus daily continue all other meds f/u as directed Referrals: Srikanth Rothman MD, MD [Staff Physician] - 2 Weeks Dm Castillo MD [Primary Care Provider] - 1 Week Disposition: HOME - Home Medications Comprehensive Discharge Medication List: Ambulatory Orders Albuterol Sulfate 2.5 mg NEB BID 05/22/17 Atorvastatin Ca [Lipitor] 10 mg PO HS 05/22/17 Metoprolol Succinate 25 mg PO DAILY 05/22/17 Roflumilast [Daliresp] 500 mcg PO DAILY 05/22/17 Tiotropium [place] [Spiriva] 1 inh IH DAILY 05/22/17 Zolpidem Tartrate [Ambien Cr] 12.5 mg PO HS 05/22/17 Edoxaban Tosylate [Savaysa] 60 mg PO DAILY 07/21/17 Fluticasone/Salmeterol [Advair 250-50 Diskus] 1 each IH BID 07/21/17 Albuterol Sulfate [Proair Hfa] 8.5 gm IH PRN 08/25/17 Cyproheptadine [Periactin -] 4 mg PO Q8H 08/25/17 Doxycycline Hyclate 100 mg PO BID 5 Days #10 tablet 08/29/17 Lactobacillus Acidophilus [Bacid -] 1 tab PO DAILY #5 tab 08/29/17
[2017-08-29 11:30] LABS: BASO % 0.1 % (0-2.0); EOS % 0.5 % (0-4.5); HEMOGLOBIN 14.3 GM/dL (11.7-16.9); LYMPH % 17.1 % (8-40); MCH 31.2 pg (25.7-33.7); MCHC 33.3 g/dl (32.0-35.9); MEAN CELL VOLUME 93.7 fl (80-96); MEAN PLT VOLUME 7.5 fl (7.5-11.1); MONO % 10.2 % (3.8-10.2); NEUT % 72.1 % (42.8-82.8); PLATELET COUNT 304 K/MM3 (134-434); RBC 4.59 M/mm3 (4.00-5.60); RDW 14.4 % (11.9-15.9); WHITE BLOOD COUNT 9.2 K/mm3 (4.0-10.0)
[2017-08-29 12:01] LABS: CHLORIDE 107 mmol/L (98-107); POTASSIUM 3.9 mmol/L (3.5-5.1); SODIUM 143 mmol/L (136-145)
[2017-08-29 12:05] LABS: ANION GAP 10 (8-16); BLOOD UREA NITROGEN 24 mg/dL (7-18); CALCIUM 9.3 mg/dL (8.5-10.1); CO2 26 mmol/L (21-32); CREATININE 0.8 mg/dL (0.7-1.3); GLUCOSE,RANDOM 100 mg/dL (74-106)
--- NOTE | 2017-08-29 13:01 | PN ---
Progress Note (short form) - Note Progress Note: PULMONARY SITTING UP WAITING TO BE DISCHARGED VSS/AFEBRILE ANICTERIC RIGHT BASE CRACKLES S1S2 BS+ NO EDEMA LABS/MEDS/NOTES/IMAGES REVIEWED PRE/POST AMB SPO2 NO HOME O2 REQUIRED IMP RLL PNEUMONIA COPD ABDOMINAL PAIN ASBESTOS PLEURAL DISEASE PAF IRRITABLE BOWEL SYNDROME PLAN INHALED BRONCHODILATORS O2 PRED TAPER SPIRIVA BD TX DALIRESP WOULD RE-IMAGE IN 4 WEEKS Jovani GRANDA MD
[2017-08-29 15:02] LABS: PLATELET ESTIMATE ADEQUATE
== END 2017-08-29 14:34 | disposition home or self-care (01) | DRG 190 ==
LOC: JER 09:10 → JERBED 14:35 → J6S 16:34
PROVIDERS: ADMIT Internal Medicine; ATTEND Internal Medicine
DX: J44.1 Chronic obstructive pulmonary disease with (acute) exacerbation (principal); J18.9 Pneumonia, unspecified organism; I48.91 Unspecified atrial fibrillation; K63.5 Polyp of colon; K57.90 Diverticulosis of intestine, part unspecified, without perforation or abscess without bleeding; E78.00 Pure hypercholesterolemia, unspecified; K42.9 Umbilical hernia without obstruction or gangrene; K40.90 Unilateral inguinal hernia, without obstruction or gangrene, not specified as recurrent; J44.9 Chronic obstructive pulmonary disease, unspecified; G25.81 Restless legs syndrome; G47.00 Insomnia, unspecified; R09.02 Hypoxemia; R10.9 Unspecified abdominal pain; J61 Pneumoconiosis due to asbestos and other mineral fibers; K58.8 Other irritable bowel syndrome; I48.0 Paroxysmal atrial fibrillation; D72.829 Elevated white blood cell count, unspecified; K31.84 Gastroparesis; Z87.891 Personal history of nicotine dependence
CPT/HCPCS: 36415; 71045-TC-FY; 71250-TC; 74177-TC; 80048; 80053; 81003; 81015; 82550; 83605; 83690; 83735; 83880; 84484; 85025; 87040; 87899; 93005; 93010; 94010; 94761; 99285-25; J0131; J7620

== ENCOUNTER 2017-10-26 09:50 | Inpatient (IN) | payer BC, OTHER ==
[2017-10-26 09:55] VITALS: BMI 22.8
--- NOTE | 2017-10-26 10:10 | PDOC ---
History of Present Illness - General Chief Complaint: Shortness of Breath Stated Complaint: Shortness of Breath Time Seen by Provider: 10/26/17 10:10 History Source: Patient Exam Limitations: No Limitations - History of Present Illness Initial Comments: 10/26/17 11:36 is a 67 year old male with pmh significant for Afib on Savaysa and Metoprolol, HTN, HLD, depression, insomnia, chronic abdominal pain, gastroparesis, COPD (no home O2), admitted for RLL PNA and acute copd exacerbation in August 2017, presenting with increased SOB x 1 day, a/w epigastric abdominal pain, nausea and NBNB clear emesis since last night. +chronic white mucus cough and shortness of breath at baseline, increased since last night.. Denies travel or sick contacts or environmental/food precipitants. No fevers or chest pain/dizziness or syncope. No recent medication changes PMD Dr. Castillo 10/26/17 11:37 10/26/17 11:39 Past History - Past Medical History Allergies/Adverse Reactions: Allergies Allergy/AdvReac Type Severity Reaction Status Date / Time amoxicillin Allergy Verified 10/26/17 09:55 codeine Allergy Verified 10/26/17 10:38 morphine AdvReac Severe Vomiting Verified 10/26/17 09:55 oxycodone AdvReac Severe Vomiting Verified 10/26/17 09:55 Home Medications: Ambulatory Orders Albuterol Sulfate 2.5 mg NEB BID 05/22/17 Atorvastatin Ca [Lipitor] 10 mg PO HS 05/22/17 Metoprolol Succinate 25 mg PO DAILY 05/22/17 Roflumilast [Daliresp] 500 mcg PO DAILY 05/22/17 Tiotropium [place] [Spiriva] 1 inh IH DAILY 05/22/17 Zolpidem Tartrate [Ambien Cr] 12.5 mg PO HS 05/22/17 Edoxaban Tosylate [Savaysa] 60 mg PO DAILY 07/21/17 Fluticasone/Salmeterol [Advair 250-50 Diskus] 1 each IH BID 07/21/17 Albuterol Sulfate [Proair Hfa] 8.5 gm IH PRN 08/25/17 Cyproheptadine [Periactin -] 4 mg PO Q8H 08/25/17 Anemia: No Asthma: No Cancer: No Cardiac Disorders: Yes (A-FIB) CVA: No COPD: Yes CHF: No Dementia: No Diabetes: No GI Disorders: Yes (COLON POLYPS, diverticulosis) Disorders: No HTN: No Hypercholesterolemia: Yes Liver Disease: No Seizures: No Thyroid Disease: No - Surgical History Abdominal Surgery: Yes (LT INGUINAL AND UMBILICAL) Appendectomy: No Cardiac Surgery: No Cholecystectomy: No Lung Surgery: No Neurologic Surgery: No Orthopedic Surgery: Yes (RT ROTATOR CUFF SHOULDER) - Immunization History Immunization Up to Date: Yes - Suicide/Smoking/Psychosocial Hx Smoking History: Former smoker Have you smoked in the past 12 months: No If you are a former smoker, when did you quit?: 1987 Information on smoking cessation initiated: No Hx Alcohol Use: No Drug/Substance Use Hx: No Substance Use Type: None Hx Substance Use Treatment: No Review of Systems - Review of Systems Able to Perform ROS?: Yes Comments:: 10/26/17 10:53 GENERAL/CONSTITUTIONAL: No fever or chills. +weakness HEAD, EYES, EARS, NOSE AND THROAT: No change in vision or hearing. No ear pain or discharge. No sore throat or mouth pain. No difficulty swallowing.. No congestion. CARDIOVASCULAR: No chest pain or palpitations, syncope or edema. RESPIRATORY: +SOB, cough. No wheezing, or hemoptysis. GASTROINTESTINAL +abdominal pain, nausea/vomiting. No diarrhea or constipation. GENITOURINARY: No hematuria, dysuria, frequency, urgency or other changes. MUSCULOSKELETAL: No joint or muscle swelling or pain. No neck or back pain. SKIN: No rash or changes in skin color or lesions. NEUROLOGIC: No headache, vertigo, loss of consciousness, or change in strength/ sensation. HEMATOLOGIC/LYMPHATIC: No anemia, easy bruising/bleeding, or history of blood clots. ALLERGIC/IMMUNOLOGIC: No allergies All other systems reviewed and negative, or as documented in HPI. 10/26/17 11:37 *Physical Exam - Vital Signs Last Vital Signs Temp Pulse Resp BP Pulse Ox 97 F L 73 20 114/70 96 10/26/17 09:53 10/26/17 09:53 10/26/17 09:53 10/26/17 09:53 10/26/17 09:53 - Physical Exam Comments: 10/26/17 10:54 General: awake and alert, malaised appearing HEENT: NCAT, PERRL, EOMI, clear conjunctiva, anicteric, moist mucus membranes, clear oropharynx, no oral lesions.. Neck: neck supple, FROM Resp: +pursing lips, bibasilar crackles and prolonged expiration CVS: RRR, no murmurs, 2+ peripheral pulses throughout, no peripheral edema Abdomen: soft, +epigastric TTP, no osborne's, no rebound or guarding. Back: nontender, normal inspection and ROM MSK: no edema, RICHARD x4, ROM intact. No clubbing or cyanosis. normal bulk and tone. no calf tenderness. Neuro: alert, oriented appropriately; speech clear. Skin: warm and well perfused, cap refill <2 sec, normal color Procedures - Bedside Ultrasound Bedside Ultrasound: Gallbladder Remarks: 10/26/17 11:27 POCUS biliary exam: Indication: abdominal pain Views: gallbladder long and s hort axis, CBD Findings: no stones or GB wall thickening or pericholecystic fluid, normal CBD < 3mm for age. Neg sono murphys Impression: no acute findings. No cholelithiasis or cholecystitis. POCUS aorta exam indication: abdominal pain views: aorta prox, mid, distal, sagittal and transverse down to iliacs findings: aorta diameter in multiple views <3mm, iliacs bilaterally <1.5cm impression: no acute findings, negative for AAA. Heart Score/ECG Review - ECG Impressions Comment:: 10/26/17 12:56 EKG normal sinus rhythm, no interval abnormalities, narrow QRS, ST and T wave segments and morphology normal. Nonspecific T wave abnormalities, limited by artifact. ED Treatment Course - LABORATORY CBC & Chemistry Diagram: 10/26/17 10:56 10/26/17 10:12 Medical Decision Making - Medical Decision Making 10/26/17 12:54 is a 67 year old male with pmh significant for Afib on Savaysa and Metoprolol, HTN, HLD, depression, insomnia, chronic abdominal pain, gastroparesis, COPD (no home O2), admitted for RLL PNA and acute copd exacerbation in August 2017, presenting with increased SOB x 1 day, a/w epigastric abdominal pain, nausea and NBNB clear emesis since last night. + increased cough. no cp or fever Vitals reviewed, no fever, normal sats and RR. no desats. DDx SOB: ACS, PE, COPD, CHF, pulmonary edema, pleurisy, pneumonia, viral syndrome. effusion. anemia, electrolyte/metabolic derangements. AAA, biliary colic, renal colic, PUD, esophageal spasm, gastroparesis. Treatments in the ED include duonebs x3, solumedrol. Pepcid for reflux and epigastric pain. feels much improved, no vomiting in the ED here Bedside aorta and biliary US neg for stones or s/s acute cholecystitis, normal Aorta diameter <3mm, <1.5cm in iliacs. - see separate procedure of POCUS notes labs and lytes wnl, trop neg reassuringly, less likely ACS or cardiac etiology. EKG NSR, nonspecific T wave flattening, limited by artifact, nonischemic. CXR clear, no fluid/edema, chronic scarring present in RUL and LLL, sclerotic knob, no cardiomegaly. symptoms and appearance more likely w/COPD, treated accordingly with improvement. dispo: admit to medicine, Dr. Castillo for COPD exacerbation, nebs and respiratory support and monitoring. abdominal pain controlled, but also chronic w/ gastroparesis, so likely related to that. 10/26/17 13:01 10/26/17 13:03 *DC/Admit/Observation/Transfer Diagnosis at time of Disposition: COPD exacerbation, Abdominal pain - Discharge Dispostion Condition at time of disposition: Guarded Decision to Admit order: Yes Decision to Admit order Date/Time: 10/26/17 12:54 10/26/17 at 1250pm - admit to Dr. Castillo - Referrals Referrals: Dm Castillo MD [Primary Care Provider] - - Patient Instructions - Post Discharge Activity
[2017-10-26] MEDS ORDERED: ALBUTEROL SO4 2.5/IPRATROPIUM 0.5 INH SOL 3 ML VIAL.NEB. NEB ONE ×4 (10:44→10:49)
[2017-10-26] MEDS ORDERED: ONDANSETRON 4 MG/2 ML VIAL IVPUSH ONE (10:44)
[2017-10-26] MEDS ORDERED: FAMOTIDINE 20 MG/50 ML IVPB 20 MG/50 ML MG IVPB ONE ×2 (10:44→10:50)
[2017-10-26] MEDS ORDERED: methylPREDNISolone NA SUCC 125 MG/2 ML VIAL IVPUSH ONE (10:44)
[2017-10-26] MEDS ORDERED: methylPREDNISolone NA SUCC 125 MG/2 ML VIAL ONE (10:50)
[2017-10-26] MEDS ORDERED: ONDANSETRON 4 MG/2 ML VIAL ONE (10:50)
[2017-10-26 10:55] LABS: ALBUMIN 3.5 g/dl (3.4-5.0); ANION GAP 9 MMOL/L (8-16); BILIRUBIN,TOTAL 0.9 mg/dL (0.2-1.0); BLOOD UREA NITROGEN 9 mg/dL (7-18); CALCIUM 9.4 mg/dL (8.5-10.1); CHLORIDE 110 mmol/L (98-107); CO2 25 mmol/L (21-32); GLUCOSE,RANDOM 89 mg/dL (74-106); LIPASE 70 U/L (73-393); SGPT/ALT 24 U/L (12-78); SODIUM 144 mmol/L (136-145); TOT PROT 6.6 g/dl (6.4-8.2)
[2017-10-26 10:58] LABS: ALK PHOS 80 U/L (45-117)
[2017-10-26 11:19] LABS: MAGNESIUM 2.1 mg/dL (1.8-2.4); POTASSIUM 5.1 mmol/L (3.5-5.1); SGOT/AST 38 U/L (15-37)
[2017-10-26 11:24] LABS: BASO % 0.4 % (0-2.0); EOS % 0.9 % (0-4.5); HEMATOCRIT 40.6 % (35.4-49); HEMOGLOBIN 13.6 GM/dL (11.7-16.9); LYMPH % 19.6 % (8-40); MCH 31.9 pg (25.7-33.7); MCHC 33.6 g/dl (32.0-35.9); MEAN CELL VOLUME 94.9 fl (80-96); MEAN PLT VOLUME 7.2 fl (7.5-11.1); MONO % 10.4 % (3.8-10.2); NEUT % 68.7 % (42.8-82.8); PLATELET COUNT 268 K/MM3 (134-434); RBC 4.28 M/mm3 (4.00-5.60); RDW 13.8 % (11.9-15.9); WHITE BLOOD COUNT 8.4 K/mm3 (4.0-10.0)
[2017-10-26 11:48] LABS: INR 1.1 (0.83-1.09); PROTHROMBIN TIME (PATIENT) 12.4 SEC (9.7-13.0)
[2017-10-26] MEDS ORDERED: CYPROHEPTADINE HCL 4 MG TABLET PO SCH (13:00)
[2017-10-26] MEDS ORDERED: ALBUTEROL SO4 0.083% IH SOL 2.5 MG/3 ML VIAL.NEB. NEB PRN (13:00)
[2017-10-26] MEDS ORDERED: ONDANSETRON 4 MG/2 ML VIAL IVPUSH PRN (13:00)
[2017-10-26] MEDS ORDERED: ZOLPIDEM TARTRATE 5 MG TABLET PO PRN (13:17)
[2017-10-26] MEDS ORDERED: ACETAMINOPHEN 1000 MG/100 ML VIAL (NON FORMULARY) IVPB ONE (13:48)
[2017-10-26] MEDS ORDERED: METOCLOPRAMIDE HCL INJECTION 10 MG/2 ML VIAL IVPUSH ONE (13:48)
[2017-10-26] MEDS ORDERED: ACETAMINOPHEN INJECTION 100 ML IVPB ONE (14:00)
[2017-10-26] MEDS ORDERED: METOCLOPRAMIDE HCL INJECTION 10 MG/2 ML VIAL ONE (14:00)
[2017-10-26] MEDS ORDERED: LORazepam 2 MG/ML SDV VIAL ONE (15:29)
[2017-10-26] MEDS: CYPROHEPTADINE HCL 4 MG TABLET PO SCH ×2 (16:28→21:34)
--- NOTE | 2017-10-26 17:22 | HP ---
Admitting History and Physical - Admission Chief Complaint: shortness of breath, N/V History of Present Illness: 67 yo male, history advanced COPD, h/o gastroparesis (on medical marijuana) presents with in creased shortness of breath, similar to prior COPD exacerbations. Had an increase in vomiting as well, which he generally gets with COPD exac as well. Given reglan in the ED (IV push) and appears to have some acute jitteriness, agitation, notes that he cannot sit still. Just received soem IV benedryl, but still feels very uncomfortable, like he cannot sit still. IN ED received several breathing treatments and feeling a little better. History Source: Patient, Family Member, Medical Record Limitations to Obtaining History: No Limitations - Past Medical History Cardiovascular: Yes: AFIB, Hyperlipdemia Pulmonary: Yes: COPD Gastrointestinal: Yes: Other (fungal esophogitis, gastroparesis) Psych: Yes: Other (Insomnia) - Past Surgical History Past Surgical History: Yes: Hernia Repair (umbillical, left inguinal) - Smoking History Smoking history: Former smoker Have you smoked in the past 12 months: No If you are a former smoker, when did you quit?: 1988 - Alcohol/Substance Use Hx Alcohol Use: No History of Substance Use: reports: None - Social History ADL: Independent Occupation: recently retired form costruction History of Recent Travel: No Home Medications - Allergies Allergies/Adverse Reactions: Allergies Allergy/AdvReac Type Severity Reaction Status Date / Time amoxicillin Allergy Verified 10/26/17 09:55 codeine Allergy Verified 10/26/17 10:38 morphine AdvReac Severe Vomiting Verified 10/26/17 09:55 oxycodone AdvReac Severe Vomiting Verified 10/26/17 09:55 - Home Medications Home Medications: Ambulatory Orders Albuterol Sulfate 2.5 mg NEB BID 05/22/17 Atorvastatin Ca [Lipitor] 10 mg PO HS 05/22/17 Metoprolol Succinate 25 mg PO DAILY 05/22/17 Roflumilast [Daliresp] 500 mcg PO DAILY 05/22/17 Tiotropium [place] [Spiriva] 1 inh IH DAILY 05/22/17 Zolpidem Tartrate [Ambien Cr] 12.5 mg PO HS 05/22/17 Edoxaban Tosylate [Savaysa] 60 mg PO DAILY 07/21/17 Fluticasone/Salmeterol [Advair 250-50 Diskus] 1 each IH BID 07/21/17 Albuterol Sulfate [Proair Hfa] 8.5 gm IH PRN 08/25/17 Cyproheptadine [Periactin -] 4 mg PO Q8H 08/25/17 Family Disease History - Family Disease History Family Disease History: Heart Disease: Father, [place]: Mother (pancreatic), Brother (lung) Review of Systems - Review of Systems Constitutional: reports: Loss of Appetite Eyes: reports: No Symptoms HENT: reports: Nasal Congestion, Other (post nasal drip often). denies: Difficult Swallowing Neck: reports: No Symptoms Cardiovascular: denies: Chest Pain Respiratory: reports: Cough, SOB, Wheezing Gastrointestinal: reports: Nausea, Vomiting. denies: Constipation, Diarrhea, Melena, Rectal Bleeding Genitourinary: denies: Burning, Discharge, Dysuria Physical Examination Vital Signs: Vital Signs Temperature 98 F 10/26/17 15:00 Pulse Rate 81 10/26/17 15:00 Respiratory Rate 17 10/26/17 15:00 Blood Pressure 117/81 10/26/17 15:00 O2 Sat by Pulse Oximetry (%) 98 10/26/17 15:00 Constitutional: Yes: Mild Distress (due to restlessness) Eyes: Yes: Conjunctiva Clear, EOM Intact, PERRL HENT: Yes: Atraumatic, Normocephalic Neck: Yes: Supple, Trachea Midline Cardiovascular: Yes: Regular Rate and Rhythm, S1, S2. No: Murmur Respiratory: Yes: Regular, Diminished (bilateral lung velasquez). No: Rales, Rhonchi, Wheezes Gastrointestinal: Yes: Normal Bowel Sounds, Soft. No: Distention, Tenderness Edema: No Neurological: Yes: Alert, Oriented Labs: CBC, BMP 10/26/17 10:56 10/26/17 10:12 Imaging - Results Chest X-ray: Report Reviewed (no acute infiltrates) Problem List - Problems (1) Acute exacerbation of chronic obstructive pulmonary disease Assessment/Plan: -start on IV steroids, cont breathing treatments, inhaled anticholinergic -pulm eval Code(s): J44.1 - CHRONIC OBSTRUCTIVE PULMONARY DISEASE W (ACUTE) EXACERBATION (2) Gastroparesis Assessment/Plan: -appears to have some side effects from reglan currently (restlessness/ mild motor agitation) -will give dose IV ativan (received benadryl as well) Code(s): K31.84 - GASTROPARESIS (3) Afib Assessment/Plan: -on Savaysa (factor X inhibitor -NOAC) -rate controlled currently on metoprolol Code(s): I48.91 - UNSPECIFIED ATRIAL FIBRILLATION Qualifiers: Atrial fibrillation type: paroxysmal Qualified Code(s): I48.0 - Paroxysmal atrial fibrillation
[2017-10-26] MEDS: methylPREDNISolone NA SUCC 125 MG/2 ML VIAL IVPUSH SCH (17:28)
[2017-10-26] MEDS: ALBUTEROL SO4 0.083% IH SOL 2.5 MG/3 ML VIAL.NEB. NEB SCH (20:08)
[2017-10-26] MEDS: ATORVASTATIN CA 10 MG TABLET (FP) PO SCH (21:33)
[2017-10-26] MEDS: BUDESONIDE/FORMETEROL FUMARATE 80/4.5 mcg INHALER IH SCH (22:11)
[2017-10-26] MEDS ORDERED: PT OWN MED DRAWER 7, Y5N ONE (22:32)
[2017-10-26] MEDS ORDERED: ZOLPIDEM TARTRATE 5 MG TABLET PO ONE (22:59)
[2017-10-27] MEDS: methylPREDNISolone NA SUCC 125 MG/2 ML VIAL IVPUSH SCH ×3 (02:39→18:08)
[2017-10-27] MEDS: CYPROHEPTADINE HCL 4 MG TABLET PO SCH ×3 (05:49→21:29)
[2017-10-27] MEDS: ALBUTEROL SO4 0.083% IH SOL 2.5 MG/3 ML VIAL.NEB. NEB SCH ×4 (07:30→21:23)
[2017-10-27 09:04] LABS: ALBUMIN 3.5 g/dl (3.4-5.0); ANION GAP 6 MMOL/L (8-16); BLOOD UREA NITROGEN 12 mg/dL (7-18); CALCIUM 9.2 mg/dL (8.5-10.1); CHLORIDE 109 mmol/L (98-107); CO2 27 mmol/L (21-32); GLUCOSE,RANDOM 128 mg/dL (74-106); POTASSIUM 4.4 mmol/L (3.5-5.1); SODIUM 142 mmol/L (136-145)
[2017-10-27 09:08] LABS: ALK PHOS 78 U/L (45-117); BILIRUBIN,TOTAL 0.6 mg/dL (0.2-1.0); CREATININE 0.9 mg/dL (0.7-1.3); SGOT/AST 14 U/L (15-37); SGPT/ALT 19 U/L (12-78); TOT PROT 6.3 g/dl (6.4-8.2)
[2017-10-27 09:16] LABS: BASO % 0.1 % (0-2.0); HEMATOCRIT 40.2 % (35.4-49); HEMOGLOBIN 13.1 GM/dL (11.7-16.9); LYMPH % 7.1 % (8-40); MCHC 32.7 g/dl (32.0-35.9); MEAN CELL VOLUME 94.7 fl (80-96); MEAN PLT VOLUME 7.5 fl (7.5-11.1); NEUT % 90.8 % (42.8-82.8); PLATELET COUNT 269 K/MM3 (134-434); RBC 4.24 M/mm3 (4.00-5.60); RDW 13.9 % (11.9-15.9); WHITE BLOOD COUNT 12.4 K/mm3 (4.0-10.0)
[2017-10-27] MEDS ORDERED: PATIENT'S OWN MEDICATION (NON-FORMULARY) (Edoxaban Tosylate [Savaysa] 60 MG) PO SCH (10:00)
[2017-10-27] MEDS ORDERED: PT OWN MED DRAWER 7, Y5N ONE ×4 (10:06→21:26)
--- NOTE | 2017-10-27 10:14 | PN ---
Progress Note, Physician Chief Complaint: Pt sitting in bed in no acute distress. Reports sob improving, not at baseline yet. Denies any chest pain, worsening sob, n/v/d - Current Medication List Current Medications: Active Medications Albuterol Sulfate (Ventolin 0.083% Nebulizer Soln -) 1 amp NEB Q4H PRN PRN Reason: SHORT OF BREATH/WHEEZING Albuterol Sulfate (Ventolin 0.083% Nebulizer Soln -) 1 amp NEB RQID [facility] Last Admin: 10/27/17 07:30 Dose: 1 amp Apixaban (Eliquis -) 5 mg PO BID [facility] Atorvastatin Calcium (Lipitor -) 10 mg PO HS [facility] Last Admin: 10/26/17 21:33 Dose: 10 mg Budesonide/Formoterol Fumarate (Symbicort 80/4.5mcg -) 2 puff IH BID [facility] Last Admin: 10/26/17 22:11 Dose: 2 puff Cyproheptadine HCl (Periactin -) 4 mg PO TID [facility] Last Admin: 10/27/17 05:49 Dose: 4 mg Methylprednisolone Sodium Succinate (Solu-Medrol -) 80 mg IVPUSH Q8H-IV [facility] Last Admin: 10/27/17 02:39 Dose: 80 mg Metoprolol Succinate (Toprol Xl -) 25 mg PO DAILY [facility] Non-Formulary Medication (Edoxaban Tosylate [Savaysa]) 60 mg PO DAILY [facility] Ondansetron HCl (Zofran Injection) 4 mg IVPUSH Q6H PRN PRN Reason: NAUSEA Roflumilast (Daliresp -) 500 mcg PO DAILY [facility] Tiotropium [place] (Spiriva Respimat) 2 puff IH DAILY [facility] Zolpidem Tartrate (Ambien -) 5 mg PO HS PRN PRN Reason: INSOMNIA - Objective Vital Signs: Vital Signs Temperature 97.5 F L 10/27/17 06:00 Pulse Rate 75 10/27/17 06:00 Respiratory Rate 20 10/26/17 22:00 Blood Pressure 102/58 10/27/17 06:00 O2 Sat by Pulse Oximetry (%) 96 10/27/17 09:00 Constitutional: Yes: Well Nourished, No Distress, Calm Cardiovascular: Yes: Pulse Irregular. No: Murmur, Rub Respiratory: Yes: Diminished, Poor Air Entry, Rhonchi (scattered), SOB. No: Accessory Muscle Use, Tachypnea Gastrointestinal: Yes: WNL, Normal Bowel Sounds, Soft. No: Distention, Tenderness Genitourinary: Yes: WNL Edema: No Neurological: Yes: WNL, Alert, Oriented Psychiatric: Yes: WNL, Alert, Oriented Labs: CBC, BMP 10/27/17 06:58 10/27/17 06:58 INR, PTT INR 1.10 (0.83-1.09) H 10/26/17 10:56 Assessment/Plan (1) Acute exacerbation of chronic obstructive pulmonary disease Assessment/Plan: sob improving, not at baseline per pt continue nebs continue medrol per pulm o2 prn pre&post upon d/c pulm consult pending Code(s): J44.1 - CHRONIC OBSTRUCTIVE PULMONARY DISEASE W (ACUTE) EXACERBATION (2) Leukocytosis Assessment/Plan: secondary to steroids chest xray- no acute infiltrate monitor Code(s): D72.829 - ELEVATED WHITE BLOOD CELL COUNT, UNSPECIFIED Qualifiers: Leukocytosis type: bandemia Qualified Code(s): D72.825 - Bandemia (3) Afib Assessment/Plan: rate controlled continue metoprolol/ savaysa Code(s): I48.91 - UNSPECIFIED ATRIAL FIBRILLATION Qualifiers: Atrial fibrillation type: paroxysmal Qualified Code(s): I48.0 - Paroxysmal atrial fibrillation (4) Gastroparesis Assessment/Plan: stable, on medical marijuana outpt continue gi follow up Code(s): K31.84 - GASTROPARESIS (5) Hyperlipidemia Assessment/Plan: chronic continue statin Code(s): E78.5 - HYPERLIPIDEMIA, UNSPECIFIED (6) Insomnia Assessment/Plan: chronic ambien prn monitor Code(s): G47.00 - INSOMNIA, UNSPECIFIED
[2017-10-27] MEDS: metoPROLOL SUCCINATE 25 MG TAB.SR.24H (FP) PO SCH (10:29)
[2017-10-27] MEDS: BUDESONIDE/FORMETEROL FUMARATE 80/4.5 mcg INHALER IH SCH ×2 (10:29→21:29)
[2017-10-27] MEDS: ROFLUMILAST 500 MCG TABLET PO SCH (10:30)
--- NOTE | 2017-10-27 10:32 | EKG ---
Test Reason : Blood Pressure : / mmHG Vent. Rate : 066 BPM Atrial Rate : 066 BPM P-R Int : 134 ms QRS Dur : 078 ms QT Int : 434 ms P-R-T Axes : 044 071 064 degrees QTc Int : 454 ms NORMAL SINUS RHYTHM NONSPECIFIC T WAVE ABNORMALITY ABNORMAL ECG WHEN COMPARED WITH ECG OF 25-AUG-2017 11:12, T WAVE VARIATION Confirmed by BROOKE IBARRA MD ([id number]) on 10/27/2017 10:32:24 AM Referred By: Confirmed By:BROOKE IBARRA MD
[2017-10-27] MEDS: APIXABAN 5 MG TABLET PO SCH ×2 (11:58→21:29)
--- NOTE | 2017-10-27 12:19 | CON.PULM ---
Consult Consult Specialty:: PULMONARY Referred by:: Dr. Castillo Reason for Consultation:: shortness of breath - History of Present Illness Chief Complaint: shortness of breath History of Present Illness: 67yo male with h/o atrial fibrillation, COPD, hyperlipidemia, h/o gastroparesis who was admitted with worsening shortness of breath x 2 days. No chest pain or palpitations. Reports a cough productive of white sputum and wheezing. No fevers , chills or sweats. Maintained at home on Advair, Spiriva, daliresp. Not on home O2. Started smoking at age 18, smoked about 1 PPD until he quit 18 years ago. Used to work in construction mostly plaster. - History Source History Provided By: Patient, Medical Record Limitations to Obtaining History: No Limitations - Past Medical History Cardio/Vascular: Yes: AFIB, Hyperlipdemia Pulmonary: Yes: COPD Gastrointestinal: Yes: Other (fungal esophogitis, gastroparesis) Psych: Yes: Other (Insomnia) - Past Surgical History Past Surgical History: Yes: Hernia Repair (umbillical, left inguinal) - Alcohol/Substance Use Hx Alcohol Use: No History of Substance Use: reports: None - Smoking History Smoking history: Former smoker Have you smoked in the past 12 months: No If you are a former smoker, when did you quit?: 1987 - Social History Usual Living Arrangement: With Spouse ADL: Independent Occupation: recently retired form costruction History of Recent Travel: No Home Medications - Allergies Allergies/Adverse Reactions: Allergies Allergy/AdvReac Type Severity Reaction Status Date / Time amoxicillin Allergy Verified 10/26/17 09:55 codeine Allergy Verified 10/26/17 10:38 morphine AdvReac Severe Vomiting Verified 10/26/17 09:55 oxycodone AdvReac Severe Vomiting Verified 10/26/17 09:55 - Home Medications Home Medications: Ambulatory Orders Albuterol Sulfate 2.5 mg NEB BID 05/22/17 Atorvastatin Ca [Lipitor] 10 mg PO HS 05/22/17 Metoprolol Succinate 25 mg PO DAILY 05/22/17 Roflumilast [Daliresp] 500 mcg PO DAILY 05/22/17 Tiotropium [place] [Spiriva] 1 inh IH DAILY 05/22/17 Zolpidem Tartrate [Ambien Cr] 12.5 mg PO HS 05/22/17 Edoxaban Tosylate [Savaysa] 60 mg PO DAILY 07/21/17 Fluticasone/Salmeterol [Advair 250-50 Diskus] 1 each IH BID 07/21/17 Albuterol Sulfate [Proair Hfa] 8.5 gm IH PRN 08/25/17 Cyproheptadine [Periactin -] 4 mg PO Q8H 08/25/17 Family Disease History - Family Disease History Family Disease History: Heart Disease: Father, [place]: Mother (pancreatic), Brother (lung) Review of Systems - Review of Systems Constitutional: reports: Weakness. denies: Chills, Fever Eyes: denies: Recent Change in Vision HENT: denies: Nasal Congestion, Throat Pain Neck: denies: Stiffness, Tenderness Cardiovascular: reports: Shortness of Breath. denies: Chest Pain, Edema, Palpitations Respiratory: reports: Cough, Exercise Intolerance, SOB on Exertion, Wheezing. denies: Hemoptysis Gastrointestinal: denies: Abdominal Pain, Nausea, Vomiting Genitourinary: denies: Dysuria, Hematuria Neurological: denies: Dizziness, Headache Endocrine: denies: Unexplained Weight Loss Physical Exam Vital Sings: Vital Signs Temperature 97.5 F L 10/27/17 10:00 Pulse Rate 89 10/27/17 10:00 Respiratory Rate 18 10/27/17 10:00 Blood Pressure 105/63 10/27/17 10:00 O2 Sat by Pulse Oximetry (%) 96 10/27/17 09:00 Constitutional: Yes: Mild Distress (mildly tachypneic with speaking) Eyes: Yes: Conjunctiva Clear, EOM Intact HENT: Yes: Atraumatic, Normocephalic Neck: Yes: Supple, Trachea Midline Cardiovascular: Yes: Pulse Irregular Respiratory: Yes: Diminished (distant breath sounds) ...Clubbing: No Gastrointestinal: Yes: Normal Bowel Sounds, Soft. No: Tenderness Edema: No Neurological: Yes: Alert, Oriented Labs: CBC, BMP 10/27/17 06:58 10/27/17 06:58 Imaging - Results Chest X-ray: Report Reviewed, Image Reviewed (blunted L CPA) Problem List - Problems (1) COPD exacerbation Code(s): J44.1 - CHRONIC OBSTRUCTIVE PULMONARY DISEASE W (ACUTE) EXACERBATION (2) Afib Code(s): I48.91 - UNSPECIFIED ATRIAL FIBRILLATION Qualifiers: Atrial fibrillation type: paroxysmal Qualified Code(s): I48.0 - Paroxysmal atrial fibrillation (3) Gastroparesis Code(s): K31.84 - GASTROPARESIS Assessment/Plan Acute COPD Exacerbation Atrial Fibrillation Hyperlipidemia Gastroparesis - IV medrol - inhaled bronchodilators standing and PRN - O2 to keep SpO2>90% - rate control - continue anticoagulation - when ready for discharge, check ambulatory SpO2 on room air to assess for home O2 Thank you for this consult Srikanth Rothman MD
[2017-10-27] MEDS: AZITHROMYCIN IVPB 500 MG in DEXTROSE 5%-WATER - 250 ML IVPB SCH (13:38)
[2017-10-27] MEDS: TIOTROPIUM BROMIDE 2.5 MCG (SPIRIVA) RESPIMAT INHALER IH SCH (13:39)
[2017-10-27] MEDS: ATORVASTATIN CA 10 MG TABLET (FP) PO SCH (21:29)
[2017-10-27] MEDS ORDERED: ZOLPIDEM TARTRATE 5 MG TABLET PO PRN (22:00)
[2017-10-28] MEDS: methylPREDNISolone NA SUCC 125 MG/2 ML VIAL IVPUSH SCH ×3 (02:23→17:30)
[2017-10-28] MEDS ORDERED: PT OWN MED DRAWER 7, Y5N ONE ×4 (05:46→21:22)
[2017-10-28] MEDS: CYPROHEPTADINE HCL 4 MG TABLET PO SCH ×3 (05:53→21:28)
[2017-10-28 08:18] LABS: CHLORIDE 110 mmol/L (98-107); POTASSIUM 4.6 mmol/L (3.5-5.1); SODIUM 144 mmol/L (136-145)
[2017-10-28 08:21] LABS: ANION GAP 6 MMOL/L (8-16); BLOOD UREA NITROGEN 21 mg/dL (7-18); CALCIUM 9.4 mg/dL (8.5-10.1); CO2 28 mmol/L (21-32); CREATININE 0.9 mg/dL (0.7-1.3); GLUCOSE,RANDOM 132 mg/dL (74-106)
[2017-10-28 08:24] LABS: BASO % 0.1 % (0-2.0); HEMATOCRIT 40.6 % (35.4-49); HEMOGLOBIN 13.3 GM/dL (11.7-16.9); LYMPH % 3.3 % (8-40); MCH 31.2 pg (25.7-33.7); MCHC 32.7 g/dl (32.0-35.9); MEAN CELL VOLUME 95.6 fl (80-96); MEAN PLT VOLUME 7.6 fl (7.5-11.1); MONO % 3.9 % (3.8-10.2); NEUT % 92.7 % (42.8-82.8); PLATELET COUNT 290 K/MM3 (134-434); RBC 4.25 M/mm3 (4.00-5.60); RDW 14.1 % (11.9-15.9); WHITE BLOOD COUNT 21.6 K/mm3 (4.0-10.0)
[2017-10-28] MEDS: ALBUTEROL SO4 0.083% IH SOL 2.5 MG/3 ML VIAL.NEB. NEB SCH ×4 (09:43→20:39)
[2017-10-28] MEDS: ROFLUMILAST 500 MCG TABLET PO SCH (09:49)
[2017-10-28] MEDS: metoPROLOL SUCCINATE 25 MG TAB.SR.24H (FP) PO SCH (09:49)
[2017-10-28] MEDS: APIXABAN 5 MG TABLET PO SCH ×2 (09:49→21:28)
[2017-10-28] MEDS: PANTOPRAZOLE 40 MG TABLET (FP) PO SCH (09:49)
[2017-10-28] MEDS: BUDESONIDE/FORMETEROL FUMARATE 80/4.5 mcg INHALER IH SCH ×2 (09:50→21:28)
[2017-10-28] MEDS: TIOTROPIUM BROMIDE 2.5 MCG (SPIRIVA) RESPIMAT INHALER IH SCH (09:50)
[2017-10-28 11:00] LABS: ANISOCYTOSIS 1+; MACROCYTOSIS 0; PLATELET ESTIMATE NORMAL
[2017-10-28] MEDS: AZITHROMYCIN IVPB 500 MG in DEXTROSE 5%-WATER - 250 ML IVPB SCH (11:12)
--- NOTE | 2017-10-28 11:42 | PN ---
Progress Note (short form) - Note Progress Note: PULMONARY States breathing slightly worse today. Chest tighter. No fever or chills. + cough with white sputum. Vital Signs Period Temp Pulse Resp BP Sys/Spence Pulse Ox Last 24 Hr 97.6 F-98.9 F 76-103 18-19 102-112/53-71 96 Gen: tachypneic with speaking Heart: RRR Lung: distant breath sounds, scattered rhonchi Abd: soft, nontender Ext: no edema CBC, BMP 10/28/17 06:20 10/28/17 06:20 Active Medications Albuterol Sulfate (Ventolin 0.083% Nebulizer Soln -) 1 amp NEB Q4H PRN PRN Reason: SHORT OF BREATH/WHEEZING Albuterol Sulfate (Ventolin 0.083% Nebulizer Soln -) 1 amp NEB RQID [facility] Last Admin: 10/28/17 09:43 Dose: 1 amp Apixaban (Eliquis -) 5 mg PO BID [facility] Last Admin: 10/28/17 09:49 Dose: 5 mg Atorvastatin Calcium (Lipitor -) 10 mg PO HS [facility] Last Admin: 10/27/17 21:29 Dose: 10 mg Budesonide/Formoterol Fumarate (Symbicort 80/4.5mcg -) 2 puff IH BID [facility] Last Admin: 10/28/17 09:50 Dose: 2 puff Cyproheptadine HCl (Periactin -) 4 mg PO TID [facility] Last Admin: 10/28/17 05:53 Dose: 4 mg Azithromycin 500 mg/ Dextrose 250 mls @ 250 mls/hr IVPB DAILY [facility] Stop: 10/31/17 10:59 Last Admin: 10/28/17 11:12 Dose: 250 mls/hr Methylprednisolone Sodium Succinate (Solu-Medrol -) 60 mg IVPUSH Q8H-IV [facility] Last Admin: 10/28/17 09:47 Dose: 60 mg Metoprolol Succinate (Toprol Xl -) 25 mg PO DAILY [facility] Last Admin: 10/28/17 09:49 Dose: 25 mg Ondansetron HCl (Zofran Injection) 4 mg IVPUSH Q6H PRN PRN Reason: NAUSEA Pantoprazole Sodium (Protonix -) 40 mg PO DAILY [facility] Last Admin: 10/28/17 09:49 Dose: 40 mg Roflumilast (Daliresp -) 500 mcg PO DAILY [facility] Last Admin: 10/28/17 09:49 Dose: 500 mcg Tiotropium [place] (Spiriva Respimat) 2 puff IH DAILY [facility] Last Admin: 10/28/17 09:50 Dose: 2 puff Zolpidem Tartrate (Ambien -) 5 mg PO HS PRN PRN Reason: INSOMNIA Last Admin: 10/27/17 22:22 Dose: 5 mg A/P Acute COPD Exacerbation Atrial Fibrillation Hyperlipidemia Gastroparesis - continue medrol at current dose - inhaled bronchodilators standing and PRN - empiric azithromycin, monitor QTc - O2 to keep SpO2>90% - rate control - continue anticoagulation - when ready for discharge, check ambulatory SpO2 on room air to assess for home O2 Problem List - Problems (1) COPD exacerbation Code(s): J44.1 - CHRONIC OBSTRUCTIVE PULMONARY DISEASE W (ACUTE) EXACERBATION (2) Afib Code(s): I48.91 - UNSPECIFIED ATRIAL FIBRILLATION Qualifiers: Atrial fibrillation type: paroxysmal Qualified Code(s): I48.0 - Paroxysmal atrial fibrillation (3) Gastroparesis Code(s): K31.84 - GASTROPARESIS
--- NOTE | 2017-10-28 11:48 | PN ---
Progress Note, Physician Chief Complaint: Pt sitting in bed in no acute distress. Reports more dyspneic today. Denies any chest pain, fever/chills, n/v/d - Current Medication List Current Medications: Active Medications Albuterol Sulfate (Ventolin 0.083% Nebulizer Soln -) 1 amp NEB Q4H PRN PRN Reason: SHORT OF BREATH/WHEEZING Albuterol Sulfate (Ventolin 0.083% Nebulizer Soln -) 1 amp NEB RQID [facility] Last Admin: 10/28/17 09:43 Dose: 1 amp Apixaban (Eliquis -) 5 mg PO BID [facility] Last Admin: 10/28/17 09:49 Dose: 5 mg Atorvastatin Calcium (Lipitor -) 10 mg PO HS [facility] Last Admin: 10/27/17 21:29 Dose: 10 mg Budesonide/Formoterol Fumarate (Symbicort 80/4.5mcg -) 2 puff IH BID [facility] Last Admin: 10/28/17 09:50 Dose: 2 puff Cyproheptadine HCl (Periactin -) 4 mg PO TID [facility] Last Admin: 10/28/17 05:53 Dose: 4 mg Azithromycin 500 mg/ Dextrose 250 mls @ 250 mls/hr IVPB DAILY [facility] Stop: 10/31/17 10:59 Last Admin: 10/28/17 11:12 Dose: 250 mls/hr Methylprednisolone Sodium Succinate (Solu-Medrol -) 60 mg IVPUSH Q8H-IV [facility] Last Admin: 10/28/17 09:47 Dose: 60 mg Metoprolol Succinate (Toprol Xl -) 25 mg PO DAILY [facility] Last Admin: 10/28/17 09:49 Dose: 25 mg Ondansetron HCl (Zofran Injection) 4 mg IVPUSH Q6H PRN PRN Reason: NAUSEA Pantoprazole Sodium (Protonix -) 40 mg PO DAILY [facility] Last Admin: 10/28/17 09:49 Dose: 40 mg Roflumilast (Daliresp -) 500 mcg PO DAILY [facility] Last Admin: 10/28/17 09:49 Dose: 500 mcg Tiotropium [place] (Spiriva Respimat) 2 puff IH DAILY [facility] Last Admin: 10/28/17 09:50 Dose: 2 puff Zolpidem Tartrate (Ambien -) 5 mg PO HS PRN PRN Reason: INSOMNIA Last Admin: 10/27/17 22:22 Dose: 5 mg - Objective Vital Signs: Vital Signs Temperature 97.6 F 10/28/17 06:00 Pulse Rate 76 10/28/17 06:00 Respiratory Rate 18 10/28/17 06:00 Blood Pressure 106/60 10/28/17 06:00 O2 Sat by Pulse Oximetry (%) 96 10/27/17 22:00 Constitutional: Yes: Well Nourished, No Distress, Calm Cardiovascular: Yes: Pulse Irregular Respiratory: Yes: Regular, Diminished, On Nasal O2, Rales (bibasilar), Rhonchi ( scattered), SOB, SOB on Exertion. No: Accessory Muscle Use, Tachypnea Gastrointestinal: Yes: WNL, Normal Bowel Sounds, Soft. No: Distention, Tenderness Genitourinary: Yes: WNL Extremities: Yes: WNL Edema: No Neurological: Yes: WNL, Alert, Oriented Psychiatric: Yes: WNL, Alert, Oriented Labs: CBC, BMP 10/28/17 06:20 10/28/17 06:20 INR, PTT INR 1.10 (0.83-1.09) H 10/26/17 10:56 Assessment/Plan (1) Acute exacerbation of chronic obstructive pulmonary disease Assessment/Plan: more sob today per pt, requiring O2 continue nebs continue medrol per pulm Azithromycin day 2 o2 prn pre&post upon d/c pulm following, case discussed Code(s): J44.1 - CHRONIC OBSTRUCTIVE PULMONARY DISEASE W (ACUTE) EXACERBATION (2) Leukocytosis Assessment/Plan: secondary to steroids chest xray- no acute infiltrate monitor Code(s): D72.829 - ELEVATED WHITE BLOOD CELL COUNT, UNSPECIFIED Qualifiers: Leukocytosis type: bandemia Qualified Code(s): D72.825 - Bandemia (3) Afib Assessment/Plan: rate controlled continue metoprolol/ eliquis while inpt resume savysa upon d/c Code(s): I48.91 - UNSPECIFIED ATRIAL FIBRILLATION Qualifiers: Atrial fibrillation type: paroxysmal Qualified Code(s): I48.0 - Paroxysmal atrial fibrillation (4) Gastroparesis Assessment/Plan: stable, on medical marijuana outpt continue gi follow up Code(s): K31.84 - GASTROPARESIS (5) Hyperlipidemia Assessment/Plan: chronic continue statin Code(s): E78.5 - HYPERLIPIDEMIA, UNSPECIFIED (6) Insomnia Assessment/Plan: chronic ambien prn monitor Code(s): G47.00 - INSOMNIA, UNSPECIFIED
--- NOTE | 2017-10-28 17:14 | EKG ---
Test Reason : Blood Pressure : / mmHG Vent. Rate : 073 BPM Atrial Rate : 073 BPM P-R Int : 136 ms QRS Dur : 076 ms QT Int : 392 ms P-R-T Axes : 017 070 034 degrees QTc Int : 431 ms NORMAL SINUS RHYTHM NONSPECIFIC T WAVE ABNORMALITY ABNORMAL ECG Confirmed by MD SHARRI, CYNTHIA ([id number]) on 10/28/2017 5:13:36 PM Referred By: Ansley UP Confirmed By:CYNTHIA HARRELL MD
[2017-10-28] MEDS: ATORVASTATIN CA 10 MG TABLET (FP) PO SCH (21:28)
[2017-10-28] MEDS: ZOLPIDEM TARTRATE 5 MG TABLET PO PRN (21:28)
[2017-10-29] MEDS: methylPREDNISolone NA SUCC 125 MG/2 ML VIAL IVPUSH SCH ×2 (01:32→09:58)
[2017-10-29] MEDS ORDERED: PT OWN MED DRAWER 7, Y5N ONE ×4 (05:46→20:53)
[2017-10-29] MEDS: CYPROHEPTADINE HCL 4 MG TABLET PO SCH ×3 (06:02→21:19)
[2017-10-29 07:56] LABS: HEMATOCRIT 39.1 % (35.4-49); HEMOGLOBIN 12.8 GM/dL (11.7-16.9); LYMPH % 3.8 % (8-40); MCH 31.1 pg (25.7-33.7); MCHC 32.7 g/dl (32.0-35.9); MEAN CELL VOLUME 95.2 fl (80-96); MEAN PLT VOLUME 7.3 fl (7.5-11.1); MONO % 3.9 % (3.8-10.2); NEUT % 92.3 % (42.8-82.8); PLATELET COUNT 258 K/MM3 (134-434); RBC 4.11 M/mm3 (4.00-5.60); RDW 14.1 % (11.9-15.9); WHITE BLOOD COUNT 18.3 K/mm3 (4.0-10.0)
[2017-10-29] MEDS: ALBUTEROL SO4 0.083% IH SOL 2.5 MG/3 ML VIAL.NEB. NEB SCH ×5 (07:56→20:31)
[2017-10-29 08:56] LABS: ANION GAP 5 MMOL/L (8-16); BLOOD UREA NITROGEN 20 mg/dL (7-18); CALCIUM 8.9 mg/dL (8.5-10.1); CHLORIDE 109 mmol/L (98-107); CO2 29 mmol/L (21-32); CREATININE 0.8 mg/dL (0.7-1.3); GLUCOSE,RANDOM 126 mg/dL (74-106); POTASSIUM 4.4 mmol/L (3.5-5.1); SODIUM 143 mmol/L (136-145)
[2017-10-29] MEDS: ROFLUMILAST 500 MCG TABLET PO SCH (09:55)
[2017-10-29] MEDS: PANTOPRAZOLE 40 MG TABLET (FP) PO SCH (09:57)
[2017-10-29] MEDS: APIXABAN 5 MG TABLET PO SCH ×2 (09:57→21:19)
[2017-10-29] MEDS: TIOTROPIUM BROMIDE 2.5 MCG (SPIRIVA) RESPIMAT INHALER IH SCH (10:00)
[2017-10-29] MEDS: BUDESONIDE/FORMETEROL FUMARATE 80/4.5 mcg INHALER IH SCH ×2 (10:00→21:20)
[2017-10-29] MEDS: AZITHROMYCIN IVPB 500 MG in DEXTROSE 5%-WATER - 250 ML IVPB SCH (10:01)
[2017-10-29] MEDS: metoPROLOL SUCCINATE 25 MG TAB.SR.24H (FP) PO SCH (10:01)
[2017-10-29 10:22] LABS: ANISOCYTOSIS 1+; MACROCYTOSIS 1+; PLATELET ESTIMATE NORMAL
--- NOTE | 2017-10-29 11:08 | PN ---
Progress Note, Physician Chief Complaint: Pt sitting in bed in no acute distress. Reports still sob, not at baseline. Denies any chest pain, fever/chills, n/v/d - Current Medication List Current Medications: Active Medications Albuterol Sulfate (Ventolin 0.083% Nebulizer Soln -) 1 amp NEB Q4H PRN PRN Reason: SHORT OF BREATH/WHEEZING Albuterol Sulfate (Ventolin 0.083% Nebulizer Soln -) 1 amp NEB RQID [facility] Last Admin: 10/29/17 07:58 Dose: 1 amp Apixaban (Eliquis -) 5 mg PO BID [facility] Last Admin: 10/29/17 09:57 Dose: 5 mg Atorvastatin Calcium (Lipitor -) 10 mg PO HS [facility] Last Admin: 10/28/17 21:28 Dose: 10 mg Budesonide/Formoterol Fumarate (Symbicort 80/4.5mcg -) 2 puff IH BID [facility] Last Admin: 10/29/17 10:00 Dose: 2 puff Cyproheptadine HCl (Periactin -) 4 mg PO TID [facility] Last Admin: 10/29/17 06:02 Dose: 4 mg Azithromycin 500 mg/ Dextrose 250 mls @ 250 mls/hr IVPB DAILY [facility] Stop: 10/31/17 10:59 Last Admin: 10/29/17 10:01 Dose: 250 mls/hr Methylprednisolone Sodium Succinate (Solu-Medrol -) 60 mg IVPUSH Q8H-IV [facility] Last Admin: 10/29/17 09:58 Dose: 60 mg Metoprolol Succinate (Toprol Xl -) 25 mg PO DAILY [facility] Last Admin: 10/29/17 10:01 Dose: 25 mg Ondansetron HCl (Zofran Injection) 4 mg IVPUSH Q6H PRN PRN Reason: NAUSEA Pantoprazole Sodium (Protonix -) 40 mg PO DAILY [facility] Last Admin: 10/29/17 09:57 Dose: 40 mg Roflumilast (Daliresp -) 500 mcg PO DAILY [facility] Last Admin: 10/29/17 09:55 Dose: 500 mcg Tiotropium [place] (Spiriva Respimat) 2 puff IH DAILY [facility] Last Admin: 10/29/17 10:00 Dose: 2 puff Zolpidem Tartrate (Ambien -) 10 mg PO HS PRN PRN Reason: INSOMNIA Last Admin: 10/28/17 21:28 Dose: 10 mg - Objective Vital Signs: Vital Signs Temperature 97.8 F 10/29/17 09:00 Pulse Rate 79 10/29/17 09:00 Respiratory Rate 20 10/29/17 09:00 Blood Pressure 112/68 10/29/17 09:00 O2 Sat by Pulse Oximetry (%) 97 10/28/17 22:00 Constitutional: Yes: Well Nourished, No Distress, Calm Cardiovascular: Yes: Pulse Irregular. No: Murmur Respiratory: Yes: Regular, Diminished, Rales (bibasilar), SOB, SOB on Exertion. No: Accessory Muscle Use, Tachypnea, Wheezes Gastrointestinal: Yes: WNL, Normal Bowel Sounds, Soft. No: Distention, Tenderness Genitourinary: Yes: WNL Musculoskeletal: Yes: WNL Extremities: Yes: WNL Edema: No Neurological: Yes: WNL, Alert, Oriented Psychiatric: Yes: WNL, Alert, Oriented Labs: CBC, BMP 10/29/17 06:20 10/29/17 06:20 INR, PTT INR 1.10 (0.83-1.09) H 10/26/17 10:56 Assessment/Plan (1) Acute exacerbation of chronic obstructive pulmonary disease Assessment/Plan: reports sob, not improved from yesterday per pt continue nebs continue medrol per pulm Azithromycin day 3 o2 prn pre&post upon d/c pulm following Code(s): J44.1 - CHRONIC OBSTRUCTIVE PULMONARY DISEASE W (ACUTE) EXACERBATION (2) Leukocytosis Assessment/Plan: secondary to steroids chest xray- no acute infiltrate monitor Code(s): D72.829 - ELEVATED WHITE BLOOD CELL COUNT, UNSPECIFIED Qualifiers: Leukocytosis type: bandemia Qualified Code(s): D72.825 - Bandemia (3) Afib Assessment/Plan: rate controlled continue metoprolol/ eliquis while inpt resume savysa upon d/c Code(s): I48.91 - UNSPECIFIED ATRIAL FIBRILLATION Qualifiers: Atrial fibrillation type: paroxysmal Qualified Code(s): I48.0 - Paroxysmal atrial fibrillation (4) Gastroparesis Assessment/Plan: stable, on medical marijuana outpt continue gi follow up Code(s): K31.84 - GASTROPARESIS (5) Hyperlipidemia Assessment/Plan: chronic continue statin Code(s): E78.5 - HYPERLIPIDEMIA, UNSPECIFIED (6) Insomnia Assessment/Plan: chronic ambien prn monitor Code(s): G47.00 - INSOMNIA, UNSPECIFIED Dispo: Home when pulm cleared
--- NOTE | 2017-10-29 11:48 | EKG ---
Test Reason : Blood Pressure : / mmHG Vent. Rate : 081 BPM Atrial Rate : 081 BPM P-R Int : 138 ms QRS Dur : 086 ms QT Int : 350 ms P-R-T Axes : 068 061 -52 degrees QTc Int : 406 ms NORMAL SINUS RHYTHM T WAVE ABNORMALITY, CONSIDER ANTEROLATERAL ISCHEMIA ABNORMAL ECG WHEN COMPARED WITH ECG OF 28-OCT-2017 09:43, ST NO LONGER ELEVATED IN INFERIOR LEADS INVERTED T WAVES HAVE REPLACED NONSPECIFIC T WAVE ABNORMALITY IN ANTEROLATERAL LEADS Confirmed by COURTNEY MARK, ZEKE ([id number]) on 10/29/2017 11:47:45 AM Referred By: MADELIN AKHTAR DR Confirmed By:ZEKE VALDEZ MD
--- NOTE | 2017-10-29 15:16 | PN ---
Progress Note, Physician History of Present Illness: pulmonary alert,less dyspneic,less cough - Current Medication List Current Medications: Active Medications Albuterol Sulfate (Ventolin 0.083% Nebulizer Soln -) 1 amp NEB Q4H PRN PRN Reason: SHORT OF BREATH/WHEEZING Albuterol Sulfate (Ventolin 0.083% Nebulizer Soln -) 1 amp NEB RQID [facility] Last Admin: 10/29/17 07:58 Dose: 1 amp Apixaban (Eliquis -) 5 mg PO BID [facility] Last Admin: 10/29/17 09:57 Dose: 5 mg Atorvastatin Calcium (Lipitor -) 10 mg PO HS [facility] Last Admin: 10/28/17 21:28 Dose: 10 mg Budesonide/Formoterol Fumarate (Symbicort 80/4.5mcg -) 2 puff IH BID [facility] Last Admin: 10/29/17 10:00 Dose: 2 puff Cyproheptadine HCl (Periactin -) 4 mg PO TID [facility] Last Admin: 10/29/17 14:28 Dose: 4 mg Azithromycin 500 mg/ Dextrose 250 mls @ 250 mls/hr IVPB DAILY [facility] Stop: 10/31/17 10:59 Last Admin: 10/29/17 10:01 Dose: 250 mls/hr Methylprednisolone Sodium Succinate (Solu-Medrol -) 60 mg IVPUSH Q8H-IV [facility] Last Admin: 10/29/17 09:58 Dose: 60 mg Metoprolol Succinate (Toprol Xl -) 25 mg PO DAILY [facility] Last Admin: 10/29/17 10:01 Dose: 25 mg Ondansetron HCl (Zofran Injection) 4 mg IVPUSH Q6H PRN PRN Reason: NAUSEA Pantoprazole Sodium (Protonix -) 40 mg PO DAILY [facility] Last Admin: 10/29/17 09:57 Dose: 40 mg Roflumilast (Daliresp -) 500 mcg PO DAILY [facility] Last Admin: 10/29/17 09:55 Dose: 500 mcg Tiotropium [place] (Spiriva Respimat) 2 puff IH DAILY [facility] Last Admin: 10/29/17 10:00 Dose: 2 puff Zolpidem Tartrate (Ambien -) 10 mg PO HS PRN PRN Reason: INSOMNIA Last Admin: 10/28/17 21:28 Dose: 10 mg - Objective Vital Signs: Vital Signs Temperature 97.8 F 10/29/17 09:00 Pulse Rate 78 10/29/17 09:20 Respiratory Rate 18 10/29/17 09:20 Blood Pressure 112/65 10/29/17 09:20 O2 Sat by Pulse Oximetry (%) 97 10/28/17 22:00 Constitutional: Yes: Well Nourished, Calm Eyes: Yes: WNL HENT: Yes: WNL Neck: Yes: WNL Cardiovascular: Yes: Pulse Irregular, S1, S2 Respiratory: Yes: Wheezes (few scatteed wheezes) Gastrointestinal: Yes: Normal Bowel Sounds, Soft Extremities: Yes: WNL Edema: No Labs: CBC, BMP 10/29/17 06:20 10/29/17 06:20 INR, PTT INR 1.10 (0.83-1.09) H 10/26/17 10:56 Assessment/Plan A/P Acute COPD Exacerbation improving Atrial Fibrillation Hyperlipidemia Gastroparesis - medrol taper - inhaled bronchodilators standing and PRN - empiric azithromycin, monitor QTc - O2 to keep SpO2>90% - rate control - continue anticoagulation - when ready for discharge, check ambulatory SpO2 on room air to assess for home O2 Problem List - Problems (1) COPD exacerbation Code(s): J44.1 - CHRONIC OBSTRUCTIVE PULMONARY DISEASE W (ACUTE) EXACERBATION (2) Afib Code(s): I48.91 - UNSPECIFIED ATRIAL FIBRILLATION Qualifiers: Atrial fibrillation type: paroxysmal Qualified Code(s): I48.0 - Paroxysmal atrial fibrillation (3) Gastroparesis Code(s): K31.84 - GASTROPARESIS
[2017-10-29] MEDS: methylPREDNISolone NA SUCC 40 MG/1 ML VIAL IVPUSH SCH (17:42)
[2017-10-29] MEDS: ATORVASTATIN CA 10 MG TABLET (FP) PO SCH (21:19)
[2017-10-29] MEDS: ZOLPIDEM TARTRATE 5 MG TABLET PO PRN (21:19)
[2017-10-30] MEDS: methylPREDNISolone NA SUCC 40 MG/1 ML VIAL IVPUSH SCH ×2 (02:17→10:14)
[2017-10-30] MEDS: CYPROHEPTADINE HCL 4 MG TABLET PO SCH ×2 (06:03→13:48)
[2017-10-30 07:07] LABS: HEMATOCRIT 39.7 % (35.4-49); HEMOGLOBIN 12.9 GM/dL (11.7-16.9); LYMPH % 4.3 % (8-40); MCH 30.8 pg (25.7-33.7); MCHC 32.5 g/dl (32.0-35.9); MEAN CELL VOLUME 94.8 fl (80-96); MEAN PLT VOLUME 7.5 fl (7.5-11.1); NEUT % 90.7 % (42.8-82.8); PLATELET COUNT 263 K/MM3 (134-434); RBC 4.19 M/mm3 (4.00-5.60); RDW 13.9 % (11.9-15.9); WHITE BLOOD COUNT 14.2 K/mm3 (4.0-10.0)
[2017-10-30 07:32] LABS: ANION GAP 10 MMOL/L (8-16); BLOOD UREA NITROGEN 23 mg/dL (7-18); CALCIUM 8.9 mg/dL (8.5-10.1); CHLORIDE 111 mmol/L (98-107); CO2 26 mmol/L (21-32); CREATININE 0.8 mg/dL (0.7-1.3); GLUCOSE,RANDOM 119 mg/dL (74-106); SODIUM 147 mmol/L (136-145)
[2017-10-30] MEDS: ALBUTEROL SO4 0.083% IH SOL 2.5 MG/3 ML VIAL.NEB. NEB SCH ×2 (08:19→11:38)
[2017-10-30] MEDS: BUDESONIDE/FORMETEROL FUMARATE 80/4.5 mcg INHALER IH SCH (10:13)
[2017-10-30] MEDS: TIOTROPIUM BROMIDE 2.5 MCG (SPIRIVA) RESPIMAT INHALER IH SCH (10:13)
[2017-10-30] MEDS: PANTOPRAZOLE 40 MG TABLET (FP) PO SCH (10:14)
[2017-10-30] MEDS: APIXABAN 5 MG TABLET PO SCH (10:14)
[2017-10-30] MEDS: metoPROLOL SUCCINATE 25 MG TAB.SR.24H (FP) PO SCH (10:14)
[2017-10-30] MEDS: ROFLUMILAST 500 MCG TABLET PO SCH (10:14)
[2017-10-30] MEDS: AZITHROMYCIN IVPB 500 MG in DEXTROSE 5%-WATER - 250 ML IVPB SCH (10:15)
[2017-10-30 10:41] VITALS: PULSE 81
--- NOTE | 2017-10-30 11:29 | PN ---
Progress Note (short form) - Note Progress Note: PULMONARY Breathing better today. Less cough and chest tightness. Vital Signs Period Temp Pulse Resp BP Sys/Spence Pulse Ox Last 24 Hr 97.6 F-98.1 F 65-81 18-20 119-119/68-75 96 Gen: less tachypneic Heart: RRR Lung: distant breath sounds, scattered rhonchi Abd: soft, nontender Ext: no edema CBC, BMP 10/30/17 06:30 10/30/17 06:30 Active Medications Albuterol Sulfate (Ventolin 0.083% Nebulizer Soln -) 1 amp NEB Q4H PRN PRN Reason: SHORT OF BREATH/WHEEZING Albuterol Sulfate (Ventolin 0.083% Nebulizer Soln -) 1 amp NEB RQID [facility] Last Admin: 10/30/17 08:19 Dose: 1 amp Apixaban (Eliquis -) 5 mg PO BID [facility] Last Admin: 10/30/17 10:14 Dose: 5 mg Atorvastatin Calcium (Lipitor -) 10 mg PO HS [facility] Last Admin: 10/29/17 21:19 Dose: 10 mg Budesonide/Formoterol Fumarate (Symbicort 80/4.5mcg -) 2 puff IH BID [facility] Last Admin: 10/30/17 10:13 Dose: 2 puff Cyproheptadine HCl (Periactin -) 4 mg PO TID [facility] Last Admin: 10/30/17 06:03 Dose: 4 mg Azithromycin 500 mg/ Dextrose 250 mls @ 250 mls/hr IVPB DAILY [facility] Stop: 10/31/17 10:59 Last Admin: 10/30/17 10:15 Dose: 250 mls/hr Methylprednisolone Sodium Succinate (Solu-Medrol -) 40 mg IVPUSH Q8H-IV [facility] Last Admin: 10/30/17 10:14 Dose: 40 mg Metoprolol Succinate (Toprol Xl -) 25 mg PO DAILY [facility] Last Admin: 10/30/17 10:14 Dose: 25 mg Ondansetron HCl (Zofran Injection) 4 mg IVPUSH Q6H PRN PRN Reason: NAUSEA Pantoprazole Sodium (Protonix -) 40 mg PO DAILY [facility] Last Admin: 10/30/17 10:14 Dose: 40 mg Roflumilast (Daliresp -) 500 mcg PO DAILY [facility] Last Admin: 10/30/17 10:14 Dose: 500 mcg Tiotropium [place] (Spiriva Respimat) 2 puff IH DAILY [facility] Last Admin: 10/30/17 10:13 Dose: 2 puff Zolpidem Tartrate (Ambien -) 10 mg PO HS PRN PRN Reason: INSOMNIA Last Admin: 10/29/17 21:19 Dose: 10 mg A/P Acute COPD Exacerbation Atrial Fibrillation Hyperlipidemia Gastroparesis - can change steroids to PO prednisone 60mg daily and taper as outpt - inhaled bronchodilators standing and PRN - O2 to keep SpO2>90% - rate control - continue anticoagulation - pt has outpt f/u in November Problem List - Problems (1) COPD exacerbation Code(s): J44.1 - CHRONIC OBSTRUCTIVE PULMONARY DISEASE W (ACUTE) EXACERBATION (2) Afib Code(s): I48.91 - UNSPECIFIED ATRIAL FIBRILLATION Qualifiers: Atrial fibrillation type: paroxysmal Qualified Code(s): I48.0 - Paroxysmal atrial fibrillation (3) Gastroparesis Code(s): K31.84 - GASTROPARESIS
--- NOTE | 2017-10-30 11:41 | DS ---
Physical Examination Vital Signs: Vital Signs Temperature 98.1 F 10/30/17 06:00 Pulse Rate 81 10/30/17 10:37 Respiratory Rate 20 10/30/17 06:00 Blood Pressure 119/68 10/30/17 06:00 O2 Sat by Pulse Oximetry (%) 96 10/30/17 10:37 Constitutional: Yes: Well Nourished, No Distress, Calm Cardiovascular: Yes: Pulse Irregular. No: Murmur Respiratory: Yes: Regular, Diminished, Rhonchi (scattered), SOB (at baseline, lung exam improved). No: Accessory Muscle Use, Tachypnea, Wheezes Gastrointestinal: Yes: WNL, Normal Bowel Sounds, Soft. No: Tenderness Renal/: Yes: WNL Edema: No Neurological: Yes: WNL, Alert, Oriented Psychiatric: Yes: WNL, Alert, Oriented Labs: CBC, BMP 10/30/17 06:30 10/30/17 06:30 Discharge Summary Reason For Visit: ACUTE EXACERBATION OF CHRONIXCC OBSTRUCTIVE PULMON Current Active Problems Acute exacerbation of chronic obstructive pulmonary disease (Acute) COPD exacerbation (Acute) Abdominal pain (Chronic) Gastritis (Chronic) Hospital Course: 67 year old male admitted for acute copd exacerbation. pulmonary consult appreciated. pt improved s/p iv steroids and nebs. received 4/5 empiric azithromycin doses. may take last dose at home tomorrow to finish course. pt transitioned to po prednisone, taper as directed. pre and post o2sat done, pt does not need home O2 at this time. f/u w/ pulm, pcp recommended. otherwise, pt is medically stable for discharge home. Condition: Improved - Instructions Diet, Activity, Other Instructions: resume prev diet, activity prednisone taper as directed- take with food Referrals: Sidney Lawson MD [Staff Physician] - 1 Week Dm Castillo MD [Primary Care Provider] - 1 Week Disposition: HOME - Home Medications Comprehensive Discharge Medication List: Ambulatory Orders Albuterol Sulfate 2.5 mg NEB BID 05/22/17 Atorvastatin Ca [Lipitor] 10 mg PO HS 05/22/17 Metoprolol Succinate 25 mg PO DAILY 05/22/17 Roflumilast [Daliresp] 500 mcg PO DAILY 05/22/17 Tiotropium [place] [Spiriva] 1 inh IH DAILY 05/22/17 Zolpidem Tartrate [Ambien Cr] 12.5 mg PO HS 05/22/17 Edoxaban Tosylate [Savaysa] 60 mg PO DAILY 07/21/17 Fluticasone/Salmeterol [Advair 250-50 Diskus] 1 each IH BID 07/21/17 Albuterol Sulfate [Proair Hfa] 8.5 gm IH PRN 08/25/17 Cyproheptadine [Periactin -] 4 mg PO Q8H 08/25/17 Azithromycin 500 mg PO ONCE 1 Days #1 tablet 10/30/17 predniSONE [Deltasone -] 5 mg PO ASDIR #78 tab 10/30/17
[2017-10-30 12:42] VITALS: BP 119/65; TEMP 98.2
[2017-10-30] MEDS ORDERED: PT OWN MED DRAWER 7, Y5N ONE (13:45)
== END 2017-10-30 14:12 | disposition home or self-care (01) | DRG 192 ==
LOC: JER 09:50 → JERBED 11:24 → J6S 17:08
PROVIDERS: ADMIT Specialist; ATTEND Specialist
DX: J44.1 Chronic obstructive pulmonary disease with (acute) exacerbation (principal); I48.0 Paroxysmal atrial fibrillation; I10 Essential (primary) hypertension; E78.5 Hyperlipidemia, unspecified; F32.9 Major depressive disorder, single episode, unspecified; G47.00 Insomnia, unspecified; K63.5 Polyp of colon; D72.829 Elevated white blood cell count, unspecified; K31.84 Gastroparesis; K57.90 Diverticulosis of intestine, part unspecified, without perforation or abscess without bleeding; K40.90 Unilateral inguinal hernia, without obstruction or gangrene, not specified as recurrent; Z87.891 Personal history of nicotine dependence; Z99.81 Dependence on supplemental oxygen
CPT/HCPCS: 36415; 71046-TC-FY; 80048; 80053; 82962; 83690; 83735; 84484; 85025; 85610; 93005; 93010; 94010; 94640; 94761; 99283-25; J0131; J7620

== ENCOUNTER 2019-08-12 03:43 | Inpatient (IN) | payer OTHER, BC ==
[2019-08-12 03:54] VITALS: BMI 25.0
--- NOTE | 2019-08-12 04:00 | PDOC ---
History of Present Illness - General Chief Complaint: Pain Stated Complaint: ABDOMINAL PAIN Time Seen by Provider: 08/12/19 03:54 Past History - Medical History Allergies/Adverse Reactions: Allergies Allergy/AdvReac Type Severity Reaction Status Date / Time amoxicillin Allergy Verified 08/12/19 03:51 codeine Allergy Verified 08/12/19 03:51 metronidazole Allergy Verified 08/12/19 03:52 pantoprazole Allergy Verified 08/12/19 03:52 morphine AdvReac Severe Vomiting Verified 08/12/19 03:51 oxycodone AdvReac Severe Vomiting Verified 08/12/19 03:51 metoclopramide [From Reglan] AdvReac Verified 08/12/19 03:52 Home Medications: Ambulatory Orders Albuterol Sulfate 2.5 mg NEB BID 05/22/17 Atorvastatin Ca [Lipitor] 10 mg PO HS 05/22/17 Metoprolol Succinate 25 mg PO DAILY 05/22/17 Roflumilast [Daliresp] 500 mcg PO DAILY 05/22/17 Tiotropium [place] [Spiriva] 1 inh IH DAILY 05/22/17 Zolpidem Tartrate [Ambien Cr] 12.5 mg PO HS 05/22/17 Edoxaban Tosylate [Savaysa] 60 mg PO DAILY 07/21/17 Fluticasone/Salmeterol [Advair 250-50 Diskus] 1 each IH BID 07/21/17 Albuterol Sulfate [Proair Hfa] 8.5 gm IH PRN 08/25/17 Cyproheptadine [Periactin -] 4 mg PO Q8H 08/25/17 Azithromycin [Zithromax] 500 mg PO ONCE 1 Days #1 tablet 10/30/17 Tiotropium [place] [Spiriva Respimat] 2 puff IH DAILY #1 inhaler 10/30/17 Tiotropium [place] [Spiriva] 1 inh PO DAILY #30 inhaler 10/30/17 predniSONE [Deltasone -] 5 mg PO ASDIR #78 tab 10/30/17 Anemia: No Asthma: No Cancer: No Cardiac Disorders: Yes (A-FIB) CVA: No COPD: Yes CHF: No Dementia: No Diabetes: No GI Disorders: Yes (COLON POLYPS, diverticulosis) Disorders: No HTN: No Hypercholesterolemia: Yes Liver Disease: No Seizures: No Thyroid Disease: No - Surgical History Abdominal Surgery: Yes (LT INGUINAL AND UMBILICAL) Appendectomy: No Cardiac Surgery: No Cholecystectomy: No Lung Surgery: No Neurologic Surgery: No Orthopedic Surgery: Yes (RT ROTATOR CUFF SHOULDER) - Immunization History Immunization Up to Date: Yes - Psycho-Social/Smoking History Smoking History: Never smoked Have you smoked in the past 12 months: No If you are a former smoker, when did you quit?: 1987 - Substance Abuse Hx (Audit-C & DAST Scrn) How often the patient has a drink containing alcohol: Never Score: In Men: 4 or > Positive; In Women: 3 or > Positive: 0 Screen Result (Pos requires Nsg. Audit-10AR): Negative In the last yr the pt used illegal drug/Rx for NonMed reason: No Score: Yes response is considered Positive: 0 Screen Result (Positive result requires Nsg. DAST-10): Negative *Physical Exam - Vital Signs Last Vital Signs Temp Pulse Resp BP Pulse Ox 97.7 F 77 22 H 140/83 96 08/12/19 03:49 08/12/19 03:49 08/12/19 03:49 08/12/19 03:49 08/12/19 03:49
--- NOTE | 2019-08-12 04:05 | PDOC ---
Attending Attestation - Resident Resident Name: Damian Muniz - ED Attending Attestation I have performed the following: I have examined & evaluated the patient, The case was reviewed & discussed with the resident, I agree w/resident's findings & plan - HPI HPI: 08/12/19 05:44 see resident hpi - Physicial Exam PE: 08/12/19 05:44 see resident exam - Medical Decision Making 08/12/19 05:[id number] male with left lower quadrant abdominal pain and decreased urine output Due to history of a sending aortic aneurysm a CTA was performed of the chest abdomen and man and pelvis which shows no acute dissection On reevaluation at 5:30 AM patient has some shortness of breath with decreased oxygen saturation to the high to mid 80s stating he does have a history of COPD and does use nebulizer treatments Solu-Medrol as well as duo nebs administered Due to elevated lactic acid and leukocytosis Rocephin 1 g given as well IV hydration, lactated Ringer's We will plan for admission to medical service for COPD exacerbation and acute kidney injury secondary to ureterolithiasis Discharge - Discharge Information Problems reviewed: Yes Clinical Impression/Diagnosis: Acute kidney injury, Ureterolithiasis, COPD exacerbation Abdominal pain Qualifiers: Abdominal location: generalized Qualified Code(s): R10.84 - Generalized abdominal pain - Follow up/Referral - Patient Discharge Instructions - Post Discharge Activity
[2019-08-12] MEDS ORDERED: ONDANSETRON 4 MG/2 ML VIAL IVPUSH ONE (04:30)
[2019-08-12] MEDS ORDERED: LACTATED RINGERS SOLUTION 1000 ML INFUS.BAG IV ONE (05:13)
[2019-08-12 05:14] LABS: BASO % 0.2 % (0-2.0); EOS % 0.1 % (0-4.5); HEMATOCRIT 44.3 % (35.4-49); HEMOGLOBIN 14.3 GM/dL (11.7-16.9); LYMPH % 9.7 % (8-40); MCHC 32.4 g/dl (32.0-35.9); MEAN CELL VOLUME 95.7 fl (80-96); MEAN PLT VOLUME 7.8 fl (7.5-11.1); MONO % 10.5 % (3.8-10.2); NEUT % 79.5 % (42.8-82.8); PLATELET COUNT 276 K/MM3 (134-434); RBC 4.62 M/mm3 (4.00-5.60); RDW 14.6 % (11.9-15.9); WHITE BLOOD COUNT 12.4 K/mm3 (4.0-10.0)
--- NOTE | 2019-08-12 05:22 | PDOC ---
History of Present Illness - General Chief Complaint: Pain Stated Complaint: ABDOMINAL PAIN Time Seen by Provider: 08/12/19 03:54 - History of Present Illness Initial Comments: The pt is a 69M w/ a history of TAA, a-fib (Eliquis), HTN, HLD, COPD (no home O2), gastroparesis w/o structural abn, BPH who presents for evaluation of 1 day of abdominal pain. The pain is diffuse, radiates to his back, is sharp/cramping, constant, and is not exacerbated or alleviated by anything he can identify. He reports multiple episodes of NB emesis. Reports tenesmus. Last BM and flatus 08/11/2019 and last urination 08/11/2019 at 1200. Pt denies blood in stool or urine. Pt denies history of urinary retention, bowel obstruction, need for NGT or calhoun Denies intra-abdominal surgery 08/12/19 05:17 Past History - Medical History Allergies/Adverse Reactions: Allergies Allergy/AdvReac Type Severity Reaction Status Date / Time amoxicillin Allergy Verified 08/12/19 03:51 codeine Allergy Verified 08/12/19 03:51 metronidazole Allergy Verified 08/12/19 03:52 pantoprazole Allergy Verified 08/12/19 03:52 morphine AdvReac Severe Vomiting Verified 08/12/19 03:51 oxycodone AdvReac Severe Vomiting Verified 08/12/19 03:51 metoclopramide [From Reglan] AdvReac Verified 08/12/19 03:52 Home Medications: Ambulatory Orders Albuterol Sulfate 2.5 mg NEB BID 05/22/17 Metoprolol Succinate 25 mg PO DAILY 05/22/17 Albuterol Sulfate Inhaler - [Ventolin Hfa Inhaler -] 1 puff IH PRN 08/12/19 Apixaban [Eliquis] 5 mg PO BID 08/12/19 Atorvastatin Ca [Lipitor] 40 mg PO HS 08/12/19 Brimonidine/Dorzolamide/Pf [Brimonidine 0.15%-Dorzolam 2%] 10 ml OP DAILY 08/12/19 Fluticasone/Umeclidin/Vilanter [Trelegy Ellipta 100-62.5-25] 1 each IH DAILY 08/12/19 Gabapentin 300 mg PO DAILY 08/12/19 Ketoconazole 2% Shampoo [Nizoral 2% Shampoo -] 1 applic TP PRN 08/12/19 Rocklatan 0.02%-0.005% Eye Drp 1 drop OU DAILY 08/12/19 Zolpidem Tartrate [Zolpidem Tartrate ER] 10 mg PO HS 08/12/19 Cardiac Disorders: Yes (A-fib) COPD: Yes GI Disorders: Yes (Colon polyps, Diverticulosis, Gastroparesis) Hypercholesterolemia: Yes - Surgical History Abdominal Surgery: Yes (LT INGUINAL AND UMBILICAL) Orthopedic Surgery: Yes (RT ROTATOR CUFF SHOULDER) - Substance Abuse Hx (Audit-C & DAST Scrn) Score: In Men: 4 or > Positive; In Women: 3 or > Positive: 0 Screen Result (Pos requires Nsg. Audit-10AR): Negative Score: Yes response is considered Positive: 0 Screen Result (Positive result requires Nsg. DAST-10): Negative Review of Systems - Review of Systems Able to Perform ROS?: Yes Comments:: GENERAL/CONSTITUTIONAL: No fever or chills. No weakness HEAD, EYES, EARS, NOSE AND THROAT: No change in vision. No change in hearing. No sore throat CARDIOVASCULAR: No chest pain or shortness of breath RESPIRATORY: Denies cough, hemoptysis GASTROINTESTINAL: per HPI GENITOURINARY: per HPI MUSCULOSKELETAL: No joint or muscle swelling or pain SKIN: No rash NEUROLOGIC: No headache, vertigo, loss of consciousness, or change in strength/sensation ENDOCRINE: No increased thirst. No abnormal weight change HEMATOLOGIC/LYMPHATIC: +Eliquis ALLERGIC/IMMUNOLOGIC: No hives or skin allergy 08/12/19 05:22 Is the patient limited Luxembourger proficient: No *Physical Exam - Vital Signs Last Vital Signs Temp Pulse Resp BP Pulse Ox 97.7 F 77 22 H 140/83 96 08/12/19 03:49 08/12/19 03:49 08/12/19 03:49 08/12/19 03:49 08/12/19 03:49 - Physical Exam GENERAL: Awake, alert, and oriented to person/place/time, appears uncomfortable HEAD: No signs of trauma, normocephalic, atraumatic EYES: PERRLA, EOMI, sclera anicteric, conjunctiva clear ENT: Hearing grossly normal, nares patent, oropharynx clear without exudates. Moist mucosa LUNGS: No distress, speaks in full sentences, clear to auscultation bilaterally HEART: Regular rate and rhythm, normal S1 and S2, no murmurs appreciated, peripheral pulses normal and equal bilaterally ABDOMEN: Soft, distended, diffusely TTP maximal suprapubically, guarding w/o rebound, normoactive bowel sounds EXTREMITIES: Normal inspection, Normal range of motion, no edema NEUROLOGICAL: Cranial nerves II through XII grossly intact. Normal speech, normal gait, no focal sensorimotor deficits SKIN: Warm, Dry 08/12/19 05:22 ED Treatment Course - LABORATORY CBC & Chemistry Diagram: 08/12/19 04:28 08/12/19 04:28 - RADIOLOGY Radiology Studies Ordered: Category Date Time Status CTA CHEST ABD PEL W/WO CONT [CT] Stat CT Scan 08/12/19 04:09 Ordered Radiograph Interpretation: Marv Stevens MD wrote on Aug 12, 2019 at 05:44 AM: Distal left ureteral 0.5 x 0 4 4 cm stone in the left ureter approximately 1 cm upstream from the left ureterovesicular junction. Right upper lobe nonspecific 2.2 x 1.2 cm masslike infiltrate may be benign or malignant on axial image 79. Left lower lobe nonspecific 1.3 x 1.1 cm mass like infiltrate may be benign or malignant on axial image 207. If clinically indicated follow-up outpatient evaluation may be needed. Ascending 4.5 cm aorta dilation. Calcified coronary artery arteriosclerosis. Biapical centrilobular emphysema. Small hiatal hernia. Moderate left hydronephrosis. Mild nonspecific bladder wall thickening may be due to infectious cystitis. Nodular nonspecific prostatomegaly. If clinically indicated recommend correlation with a PSA level. Diverticulosis. Small inguinal hernias of omental fat without incarceration. 08/12/19 05:55 - Medications Given in the ED: ED Medications Discontinued Medications Generic Name Dose Route Start Last Admin Trade Name Freq PRN Reason Stop Dose Admin Fentanyl 25 mcg 08/12/19 04:17 08/12/19 04:20 Sublimaze Injection - IVPUSH 08/12/19 04:18 25 mcg ONCE ONE Administration Fentanyl 25 mcg 08/12/19 04:57 08/12/19 05:07 Sublimaze Injection - IVPUSH 08/12/19 04:58 25 mcg ONCE ONE Administration Ondansetron HCl 4 mg 08/12/19 04:30 08/12/19 04:32 Zofran Injection IVPUSH 08/12/19 04:31 4 mg ONCE ONE Administration Medical Decision Making - Medical Decision Making The pt is a 69M w/ a history of TAA, a-fib (Eliquis), HTN, HLD, gastroparesis, BPH who presents for evaluation of 1 day of abdominal pain w/ decreased Uop no BM and N/V No Uop since 08/10 at 1200 Ddx: AD/AAA, bowel obstruction, acute renal failure, nephrolithiasis +/- obs truction, urinary retention, gastroparesis ED Course Calhoun placed initially w/ 75-100cc Uop, pt w/ hematuria FAST neg Fentanyl 25mcg x2 for pain given 1L LR given Zofran 4mg IV once ECG w/ poor baseline; NSR; HR 73; QTc 427; no axis deviation; no acute ischemic changes CTA CAP obtained Labs sent 08/12/19 05:24 Lytes overall unremarkable LFTs unremarkable Trop I neg Lactic acidosis and MENG noted CT w/ L distal stone, 5mm x 4.4mm w/ moderate hydronephrosis Case discussed with Dr. Kennedy, will hold AC today Pt given Ceftriaxone 1g IV once Ascending TAA stable Pt noted to be hypoxic from mid 90s to mid 80s Pt placed on 2L NC Pt given duo-neb x3 and Solumedrol 125mg IV once for COPD Plan for admission for MENG, obstructing nephrolithiasis, and COPD 08/12/19 05:50 UA w/ large blood, no evidence of UTI 08/12/19 06:04 Microblog sent for admission, awaiting return call 08/12/19 05:47 Will given Ofirmev and Fentanyl for pain Consider Toradol once renal function improves 08/12/19 06:55 Pt signed out to day team for sign out to Admitting Discharge - Discharge Information Problems reviewed: Yes Clinical Impression/Diagnosis: Acute kidney injury, Ureterolithiasis, COPD exacerbation Abdominal pain Qualifiers: Abdominal location: generalized Qualified Code(s): R10.84 - Generalized abdominal pain Condition: Good - Admission Yes - Follow up/Referral - Patient Discharge Instructions - Post Discharge Activity
[2019-08-12 05:25] LABS: INR 1.08 (0.83-1.09); PROTHROMBIN TIME (PATIENT) 12.7 SEC (9.7-13.0)
[2019-08-12 05:27] LABS: ACTIVATED PTT 28.3 SECONDS (25.2-36.5)
[2019-08-12 05:37] LABS: ALBUMIN 3.8 g/dl (3.4-5.0); ALK PHOS 85 U/L (45-117); ANION GAP 10 MMOL/L (8-16); BILIRUBIN,TOTAL 0.5 mg/dL (0.2-1); BLOOD UREA NITROGEN 17.2 mg/dL (7-18); CALCIUM 9.5 mg/dL (8.5-10.1); CHLORIDE 107 mmol/L (98-107); CO2 24 mmol/L (21-32); CREATININE 1.5 mg/dL (0.55-1.3); GLUCOSE,RANDOM 149 mg/dL (74-106); LIPASE 96 U/L (73-393); POTASSIUM 4.3 mmol/L (3.5-5.1); SGOT/AST 11 U/L (15-37); SGPT/ALT 26 U/L (13-61); SODIUM 141 mmol/L (136-145); TOT PROT 6.8 g/dl (6.4-8.2)
[2019-08-12] MEDS ORDERED: SODIUM CHLORIDE 0.9% 1000 ML INFUS.BAG IV ONE (05:38)
[2019-08-12] MEDS ORDERED: VANCOMYCIN 1,000 MG in DEXTROSE 5%-WATER - 250 ML IVPB ONE (05:40)
[2019-08-12] MEDS ORDERED: CEFTRIAXONE 2,000 MG in DEXTROSE 5%-WATER - 50 ML IVPB ONE (05:40)
[2019-08-12] MEDS ORDERED: CEFTRIAXONE 1,000 MG in DEXTROSE 5%-WATER - 50 ML IVPB ONE (05:43)
[2019-08-12] MEDS ORDERED: methylPREDNISolone NA SUCC 125 MG/2 ML VIAL IVPB ONE (05:53)
[2019-08-12] MEDS ORDERED: ALBUTEROL SO4 2.5/IPRATROPIUM 0.5 INH SOL 3 ML VIAL.NEB. NEB ONE (05:55)
[2019-08-12] MEDS ORDERED: methylPREDNISolone NA SUCC 125 MG/2 ML VIAL ONE (05:56)
[2019-08-12] MEDS ORDERED: CEFTRIAXONE 1 GM/50 ML BAG ONE (05:56)
[2019-08-12 05:57] LABS: URINE APPEARANCE TURBID; URINE COLOR BROWN
[2019-08-12 05:58] LABS: URINE BILIRUBIN MODERATE (NEGATIVE); URINE GLUCOSE (UA) 100 (NEGATIVE); URINE KETONE SMALL (NEGATIVE)
[2019-08-12 05:59] LABS: URINE LEUK ESTERASE SMALL (NEGATIVE); URINE NITRITE NEGATIVE (NEGATIVE); URINE PROTEIN 100 (NEGATIVE); URINE RBC 16591 /uL (0-23.9); URINE UROBILINOGEN 0.2 mg/dL (0.2-1.0)
[2019-08-12 06:00] LABS: EPI CELLS 30 /uL (0-25.1); HYALINE CASTS 14 /uL (0-3.1); URINE BACTERIA 0 /uL (0-1359); URINE WBC 84 /uL (0-25.8)
[2019-08-12] MEDS: ALBUTEROL SO4 2.5/IPRATROPIUM 0.5 INH SOL 3 ML VIAL.NEB. NEB SCH ×2 (06:05→06:19)
[2019-08-12] MEDS ORDERED: PROCHLORPERAZINE INJECTION 10 MG/2 ML VIAL IVPB ONE (06:44)
[2019-08-12] MEDS ORDERED: ACETAMINOPHEN 1000 MG/100 ML VIAL (NON FORMULARY) IVPB ONE (06:46)
[2019-08-12] MEDS ORDERED: ACETAMINOPHEN INJECTION 100 ML IVPB ONE (06:54)
--- NOTE | 2019-08-12 07:22 | PDOC ---
*Physical Exam - Vital Signs Last Vital Signs Temp Pulse Resp BP Pulse Ox 97.7 F 80 24 H 152/76 100 08/12/19 03:49 08/12/19 06:50 08/12/19 06:50 08/12/19 06:50 08/12/19 06:50 ED Treatment Course - LABORATORY CBC & Chemistry Diagram: 08/12/19 04:28 08/12/19 04:28 - ADDITIONAL ORDERS Additional order review: Laboratory Results 08/12/19 08/12/19 08/12/19 05:12 04:28 04:28 PT with INR INR PTT (Actin FS) Sodium Potassium Chloride Carbon Dioxide Anion Gap BUN Creatinine Est GFR (CKD-EPI)AfAm Est GFR (CKD-EPI)NonAf Random Glucose Lactic Acid Calcium Total Bilirubin AST ALT Alkaline Phosphatase Creatine Kinase Troponin I Total Protein Albumin Lipase Urine Color Brown Urine Appearance Turbid Urine pH 5.0 Ur Specific [place] 1.073 H Urine Protein 100 Urine Glucose (UA) 100 Urine Ketones Small Urine Blood Large Urine Nitrite Negative Urine Bilirubin Moderate Urine Urobilinogen 0.2 Ur Leukocyte Esterase Small Urine WBC (Auto) 84 Urine RBC (Auto) 38702 Urine Casts (Auto) 14 U Epithel Cells (Auto) 30 Urine Bacteria (Auto) 0 Blood Type O POSITIVE O POSITIVE Antibody Screen Negative Negative 08/12/19 08/12/19 08/12/19 04:28 04:28 04:28 PT with INR 12.70 INR 1.08 PTT (Actin FS) 28.3 Sodium 141 Potassium 4.3 Chloride 107 Carbon Dioxide 24 Anion Gap 10 BUN 17.2 Creatinine 1.5 H Est GFR (CKD-EPI)AfAm 55.04 Est GFR (CKD-EPI)NonAf 47.49 Random Glucose 149 H Lactic Acid 4.4 H* Calcium 9.5 Total Bilirubin 0.5 AST 11 L ALT 26 Alkaline Phosphatase 85 Creatine Kinase 80 Troponin I < 0.02 Total Protein 6.8 Albumin 3.8 Lipase 96 Urine Color Urine Appearance Urine pH Ur Specific [place] Urine Protein Urine Glucose (UA) Urine Ketones Urine Blood Urine Nitrite Urine Bilirubin Urine Urobilinogen Ur Leukocyte Esterase Urine WBC (Auto) Urine RBC (Auto) Urine Casts (Auto) U Epithel Cells (Auto) Urine Bacteria (Auto) Blood Type Antibody Screen 08/12/19 04:28 RBC 4.62 MCV 95.7 MCHC 32.4 RDW 14.6 MPV 7.8 Neutrophils % 79.5 Lymphocytes % 9.7 D Monocytes % 10.5 H D Eosinophils % 0.1 D Basophils % 0.2 D - Medications Given in the ED: ED Medications Discontinued Medications Generic Name Dose Route Start Last Admin Trade Name Jane PRN Reason Stop Dose Admin Acetaminophen 1,000 mg 08/12/19 06:46 08/12/19 06:55 Ofirmev Injection - IVPB 08/12/19 06:47 1,000 mg ONCE ONE Administration Albuterol/Ipratropium 1 amp 08/12/19 06:00 08/12/19 06:19 Duoneb - NEB 08/12/19 06:31 1 amp Q15M FRIEDA Administration Fentanyl 25 mcg 08/12/19 04:17 08/12/19 04:20 Sublimaze Injection - IVPUSH 08/12/19 04:18 25 mcg ONCE ONE Administration Fentanyl 25 mcg 08/12/19 04:57 08/12/19 05:07 Sublimaze Injection - IVPUSH 08/12/19 04:58 25 mcg ONCE ONE Administration Fentanyl 25 mcg 08/12/19 06:45 08/12/19 06:55 Sublimaze Injection - IVPUSH 08/12/19 06:46 25 mcg ONCE ONE Administration Vancomycin HCl 1,000 mg/ 250 mls @ 250 mls/hr 08/12/19 05:40 08/12/19 05:47 Dextrose IVPB 08/12/19 06:39 Not Given ONCE ONE Protocol Ceftriaxone Sodium 2,000 mg/ 50 mls @ 100 mls/hr 08/12/19 05:40 08/12/19 05:46 Dextrose IVPB 08/12/19 06:09 Not Given ONCE ONE Ceftriaxone Sodium 1,000 mg/ 50 mls @ 100 mls/hr 08/12/19 05:43 08/12/19 06:05 Dextrose IVPB 08/12/19 06:09 100 mls/hr ONCE ONE Administration Lactated Ringer's 1,000 ml 08/12/19 05:13 08/12/19 05:39 Lactated Ringers Solution IV 08/12/19 05:14 1,000 ml ONCE ONE Administration Methylprednisolone Sodium Succinate 125 mg 08/12/19 05:53 08/12/19 06:05 Solu-Medrol - IVPB 08/12/19 05:54 125 mg ONCE ONE Administration Ondansetron HCl 4 mg 08/12/19 04:30 08/12/19 04:32 Zofran Injection IVPUSH 08/12/19 04:31 4 mg ONCE ONE Administration Prochlorperazine Edisylate 10 mg 08/12/19 06:44 08/12/19 07:02 Compazine Injection - IVPB 08/12/19 06:45 Not Given ONCE ONE Medical Decision Making - Medical Decision Making Patient signed out to me from night team pending admission to hospital for MENG, renal stone, intractable pain. Spoke with Dr. Pena who accepts admission to Dr. Post's service Discharge - Discharge Information Problems reviewed: Yes Clinical Impression/Diagnosis: Acute kidney injury, Ureterolithiasis, COPD exacerbation Abdominal pain Qualifiers: Abdominal location: generalized Qualified Code(s): R10.84 - Generalized abdominal pain Condition: Good - Admission Yes - Follow up/Referral - Patient Discharge Instructions - Post Discharge Activity
--- NOTE | 2019-08-12 09:31 | HP ---
CHIEF COMPLAINT: lower abdominal pains HISTORY OF PRESENT ILLNESS: 69 year old male with known history of CAD, Afib on Eliquis, psoriasis, glaucoma, cataracts who presents to the ED complaining of lower abdominal pains of 1 day's duration. Last night pain was particularly severe prompting him to go to the ED. CT scan done on presentation showed a 5 mm calculus at the distal ureter with mild left hydronephrosis Recent Travel: none PAST MEDICAL HISTORY: as above PAST SURGICAL HISTORY: as above Social History: Smoking: denies Alcohol: denies Drugs: denies Allergies amoxicillin Allergy (Verified 08/12/19 03:51) codeine Allergy (Verified 08/12/19 03:51) metronidazole Allergy (Verified 08/12/19 03:52) pantoprazole Allergy (Verified 08/12/19 03:52) morphine Adverse Reaction (Severe, Verified 08/12/19 03:51) Vomiting oxycodone Adverse Reaction (Severe, Verified 08/12/19 03:51) Vomiting metoclopramide [From Reglan] Adverse Reaction (Verified 08/12/19 03:52) HOME MEDICATIONS: Home Medications Medication Instructions Recorded Albuterol Sulfate 2.5 mg NEB BID 05/22/17 Metoprolol Succinate 25 mg PO DAILY 05/22/17 Albuterol Sulfate Inhaler - 1 puff IH 08/12/19 [Ventolin Hfa Inhaler -] Apixaban [Eliquis] 5 mg PO 08/12/19 Atorvastatin Ca [Lipitor] 40 mg PO HS 08/12/19 Betamethasone/Propylene Glyc 15 gm TP 08/12/19 [Betamethasone Dp Aug 0.05% Crm] Brimonidine/Dorzolamide/Pf 10 ml OP 08/12/19 [Brimonidine 0.15%-Dorzolam 2%] Fluticasone/Umeclidin/Vilanter 1 each IH 08/12/19 [Trelegy Ellipta 100-62.5-25] Gabapentin 300 mg PO 08/12/19 Ketoconazole 2% Shampoo [Nizoral 1 applic TP 08/12/19 2% Shampoo -] Rocklatan 0.02%-0.005% Eye Drp 1 drop 08/12/19 Zolpidem Tartrate [Zolpidem 12.5 mg PO 08/12/19 Tartrate ER] REVIEW OF SYSTEMS CONSTITUTIONAL: Absent: fever, chills, diaphoresis, generalized weakness, malaise, loss of appetite, weight change HEENT: Absent: rhinorrhea, nasal congestion, throat pain, throat swelling, difficulty swallowing, mouth swelling, ear pain, eye pain, visual changes CARDIOVASCULAR: Absent: chest pain, syncope, palpitations, irregular heart rate, lightheadedness, peripheral edema RESPIRATORY: Absent: cough, shortness of breath, dyspnea with exertion, orthopnea, wheezing, stridor, hemoptysis GASTROINTESTINAL: Absent: abdominal pain, abdominal distension, nausea, vomiting, diarrhea, constipation, melena, hematochezia GENITOURINARY: Absent: dysuria, frequency, urgency, hesitancy, hematuria, genital pain MUSCULOSKELETAL: Absent: myalgia, arthralgia, joint swelling, back pain, neck pain SKIN: Absent: rash, itching, pallor HEMATOLOGIC/IMMUNOLOGIC: Absent: easy bleeding, easy bruising, lymphadenopathy, frequent infections ENDOCRINE: Absent: unexplained weight gain, unexplained weight loss, heat intolerance, cold intolerance NEUROLOGIC: Absent: headache, focal weakness or paresthesias, dizziness, unsteady gait, seizure, mental status changes, bladder or bowel incontinence PSYCHIATRIC: Absent: anxiety, depression, suicidal or homicidal ideation, hallucinations. PHYSICAL EXAMINATION Vital Signs - 24 hr 08/12/19 08/12/19 08/12/19 03:49 05:40 06:50 Temperature 97.7 F Pulse Rate 77 Pulse Rate [ 68 80 Apical] Respiratory 22 H 13 24 H Rate Blood Pressure 140/83 Blood Pressure 141/77 152/76 [Right Arm] O2 Sat by Pulse 96 99 100 Oximetry (%) 08/12/19 08:16 Temperature Pulse Rate Pulse Rate [ Apical] Respiratory Rate Blood Pressure Blood Pressure [Right Arm] O2 Sat by Pulse 98 Oximetry (%) GENERAL: Awake, alert, and fully oriented, in no acute distress. HEAD: Normal with no signs of trauma. EYES: Pupils equal, round and reactive to light, extraocular movements intact, sclera anicteric, conjunctiva clear. No lid lag. EARS, NOSE, THROAT: oropharynx clear without exudates. Moist mucous membranes. NECK: Normal range of motion, supple without lymphadenopathy, JVD, or masses. LUNGS: Breath sounds equal, clear to auscultation bilaterally. No wheezes, and no crackles. No accessory muscle use. HEART: Regular rate and rhythm, normal S1 and S2 without murmur, rub or gallop. ABDOMEN: Soft, nontender, not distended, normoactive bowel sounds, no guarding, no rebound, no masses. No hepatomegaly or splenomegaly. MUSCULOSKELETAL: Normal range of motion at all joints. No bony deformities or tenderness. No CVA tenderness. UPPER EXTREMITIES: 2+ pulses, warm, well-perfused. No cyanosis. No clubbing. No peripheral edema. LOWER EXTREMITIES: 2+ pulses, warm, well-perfused. No calf tenderness. No peripheral edema. NEUROLOGICAL: Cranial nerves II-XII intact. Normal speech. Normal gait. PSYCHIATRIC: Cooperative. Good eye contact. Appropriate mood and affect. SKIN: Warm, dry, normal turgor, no rashes or lesions noted, normal capillary refill. Laboratory Results - last 24 hr 08/12/19 08/12/19 08/12/19 04:28 04:28 04:28 WBC 12.4 H RBC 4.62 Hgb 14.3 Hct 44.3 MCV 95.7 MCH 31.0 MCHC 32.4 RDW 14.6 Plt Count 276 MPV 7.8 Absolute Neuts (auto) 9.8 H Neutrophils % 79.5 Lymphocytes % 9.7 D Monocytes % 10.5 H D Eosinophils % 0.1 D Basophils % 0.2 D Nucleated RBC % 0 PT with INR 12.70 INR 1.08 PTT (Actin FS) 28.3 Sodium 141 Potassium 4.3 Chloride 107 Carbon Dioxide 24 Anion Gap 10 BUN 17.2 Creatinine 1.5 H Est GFR (CKD-EPI)AfAm 55.04 Est GFR (CKD-EPI)NonAf 47.49 Random Glucose 149 H Lactic Acid Calcium 9.5 Total Bilirubin 0.5 AST 11 L ALT 26 Alkaline Phosphatase 85 Creatine Kinase 80 Troponin I < 0.02 Total Protein 6.8 Albumin 3.8 Lipase 96 Urine Color Urine Appearance Urine pH Ur Specific [place] Urine Protein Urine Glucose (UA) Urine Ketones Urine Blood Urine Nitrite Urine Bilirubin Urine Urobilinogen Ur Leukocyte Esterase Urine WBC (Auto) Urine RBC (Auto) Urine Casts (Auto) U Epithel Cells (Auto) Urine Bacteria (Auto) Blood Type Antibody Screen 08/12/19 08/12/19 08/12/19 04:28 04:28 04:28 WBC RBC Hgb Hct MCV MCH MCHC RDW Plt Count MPV Absolute Neuts (auto) Neutrophils % Lymphocytes % Monocytes % Eosinophils % Basophils % Nucleated RBC % PT with INR INR PTT (Actin FS) Sodium Potassium Chloride Carbon Dioxide Anion Gap BUN Creatinine Est GFR (CKD-EPI)AfAm Est GFR (CKD-EPI)NonAf Random Glucose Lactic Acid 4.4 H* Calcium Total Bilirubin AST ALT Alkaline Phosphatase Creatine Kinase Troponin I Total Protein Albumin Lipase Urine Color Urine Appearance Urine pH Ur Specific [place] Urine Protein Urine Glucose (UA) Urine Ketones Urine Blood Urine Nitrite Urine Bilirubin Urine Urobilinogen Ur Leukocyte Esterase Urine WBC (Auto) Urine RBC (Auto) Urine Casts (Auto) U Epithel Cells (Auto) Urine Bacteria (Auto) Blood Type O POSITIVE O POSITIVE Antibody Screen Negative Negative 08/12/19 05:12 WBC RBC Hgb Hct MCV MCH MCHC RDW Plt Count MPV Absolute Neuts (auto) Neutrophils % Lymphocytes % Monocytes % Eosinophils % Basophils % Nucleated RBC % PT with INR INR PTT (Actin FS) Sodium Potassium Chloride Carbon Dioxide Anion Gap BUN Creatinine Est GFR (CKD-EPI)AfAm Est GFR (CKD-EPI)NonAf Random Glucose Lactic Acid Calcium Total Bilirubin AST ALT Alkaline Phosphatase Creatine Kinase Troponin I Total Protein Albumin Lipase Urine Color Brown Urine Appearance Turbid Urine pH 5.0 Ur Specific [place] 1.073 H Urine Protein 100 Urine Glucose (UA) 100 Urine Ketones Small Urine Blood Large Urine Nitrite Negative Urine Bilirubin Moderate Urine Urobilinogen 0.2 Ur Leukocyte Esterase Small Urine WBC (Auto) 84 Urine RBC (Auto) 52117 Urine Casts (Auto) 14 U Epithel Cells (Auto) 30 Urine Bacteria (Auto) 0 Blood Type Antibody Screen ASSESSMENT/PLAN: 1. Left obstructing ureteral calculus - Dr Hans Kennedy (uro) already informed of consultation - pain meds - hydration - NPO while awaiting determination from urology re: timing of surgery 2. COPD - cont home meds, prn nebs - Dr Lawson (pulm) consulted 3. Afib - rate is controlled - hold off on restarting Eliquis in anticipation possible cystoscopy 4. cont ophthalmic drops for glaucoma 5. SCD for DVT prophylaxis updated of plans of care Family Medical History Family History: Denies Visit type - Emergency Visit Emergency Visit: Yes ED Registration Date: 08/12/19 Care time: The patient presented to the Emergency Department on the above date and was hospitalized for further evaluation of their emergent condition. - New Patient This patient is new to me today: Yes Date on this admission: 08/24/19 - Critical Care Critical Care patient: No
[2019-08-12] MEDS ORDERED: KETOROLAC TROMETHAMINE 15 MG/ML VIAL IVPUSH PRN (09:41)
[2019-08-12] MEDS ORDERED: ALBUTEROL SO4 0.083% IH SOL 2.5 MG/3 ML VIAL.NEB. NEB PRN ×2 (09:57→20:54)
[2019-08-12] MEDS ORDERED: metoPROLOL SUCCINATE 25 MG TAB.SR.24H (FP) PO SCH (10:00)
[2019-08-12] MEDS ORDERED: GABAPENTIN 300 MG CAPSULE PO SCH (10:00)
[2019-08-12] MEDS ORDERED: GABAPENTIN 100 MG CAPSULE ONE (10:13)
--- NOTE | 2019-08-12 11:25 | CON.GU ---
Consult Consult Specialty:: Referred by:: Reed Reason for Consultation:: L ureteral calculus - History of Present Illness Chief Complaint: abd pain History of Present Illness: 69 year old male with known history of CAD, Afib on Eliquis, psoriasis, glaucoma, cataracts who presents to the ED complaining of lower abdominal pains of 1 day's duration. Last night pain was particularly severe prompting him to go to the ED. CT scan done on presentation showed a 5 mm calculus at the distal L ureter with mild left hydronephrosis. cons req. - History Source History Provided By: Patient, Medical Record Limitations to Obtaining History: No Limitations - Past Medical History Cardio/Vascular: Yes: AFIB, Hyperlipdemia Pulmonary: Yes: COPD Gastrointestinal: Yes: Other (fungal esophogitis, gastroparesis) Psych: Yes: Other (Insomnia) - Past Surgical History Past Surgical History: Yes: Hernia Repair (umbillical, left inguinal) - Alcohol/Substance Use Hx Alcohol Use: No History of Substance Use: reports: None - Smoking History Smoking history: Never smoked Have you smoked in the past 12 months: No If you are a former smoker, when did you quit?: 1987 - Social History Usual Living Arrangement: With Spouse ADL: Independent Occupation: recently retired form [employer] History of Recent Travel: No Home Medications - Allergies Allergies/Adverse Reactions: Allergies Allergy/AdvReac Type Severity Reaction Status Date / Time amoxicillin Allergy Verified 08/12/19 03:51 codeine Allergy Verified 08/12/19 03:51 metronidazole Allergy Verified 08/12/19 03:52 pantoprazole Allergy Verified 08/12/19 03:52 morphine AdvReac Severe Vomiting Verified 08/12/19 03:51 oxycodone AdvReac Severe Vomiting Verified 08/12/19 03:51 metoclopramide [From Reglan] AdvReac Verified 08/12/19 03:52 - Home Medications Home Medications: Ambulatory Orders Albuterol Sulfate 2.5 mg NEB BID 05/22/17 Metoprolol Succinate 25 mg PO DAILY 05/22/17 Albuterol Sulfate Inhaler - [Ventolin Hfa Inhaler -] 1 puff IH 08/12/19 Apixaban [Eliquis] 5 mg PO 08/12/19 Atorvastatin Ca [Lipitor] 40 mg PO HS 08/12/19 Betamethasone/Propylene Glyc [Betamethasone Dp Aug 0.05% Crm] 15 gm TP 08/12/19 Brimonidine/Dorzolamide/Pf [Brimonidine 0.15%-Dorzolam 2%] 10 ml OP 08/12/19 Fluticasone/Umeclidin/Vilanter [Trelegy Ellipta 100-62.5-25] 1 each IH 08/12/19 Gabapentin 300 mg PO 08/12/19 Ketoconazole 2% Shampoo [Nizoral 2% Shampoo -] 1 applic TP 08/12/19 Rocklatan 0.02%-0.005% Eye Drp 1 drop 08/12/19 Zolpidem Tartrate [Zolpidem Tartrate ER] 10 mg PO 08/12/19 Review of Systems - Review of Systems Gastrointestinal: reports: Abdominal Pain Genitourinary: reports: Flank Pain Physical Exam- Vital Signs: Vital Signs Temperature 97.7 F 08/12/19 03:49 Pulse Rate 80 08/12/19 06:50 Respiratory Rate 24 H 08/12/19 06:50 Blood Pressure 152/76 08/12/19 06:50 O2 Sat by Pulse Oximetry (%) 98 08/12/19 08:16 Gastrointestinal: Yes: Soft, Tenderness Renal/: Yes: CVA Tenderness - Left Labs: CBC, BMP 08/12/19 04:28 08/12/19 04:28 Imaging - Results Cat Scan: Report Reviewed, Image Reviewed Problem List - Problems (1) Hydronephrosis concurrent with and due to calculi of kidney and ureter Code(s): N13.2 - HYDRONEPHROSIS WITH RENAL AND URETERAL CALCULOUS OBSTRUCTION (2) Acute kidney injury Code(s): N17.9 - ACUTE KIDNEY FAILURE, UNSPECIFIED (3) Ureterolithiasis Assessment/Plan: ivfs, analgesia, tamsulosin, strain urine, cysto L JJ stent insertion, f/u for LULL Code(s): N20.1 - CALCULUS OF URETER (4) Leukocytosis Code(s): D72.829 - ELEVATED WHITE BLOOD CELL COUNT, UNSPECIFIED Qualifiers: Leukocytosis type: bandemia
[2019-08-12] MEDS ORDERED: fentaNYL CITRATE 250 MCG/5 ML VIAL ONE (12:14)
[2019-08-12] MEDS ORDERED: PROPOFOL 20 ML ONE (12:16)
[2019-08-12] MEDS ORDERED: SUCCINYLCHOLINE CHLORIDE 200 MG/10 ML SYRINGE ONE (12:16)
[2019-08-12] MEDS ORDERED: MIDAZOLAM HCL 2 MG/2 ML SINGLE DOSE VIAL ONE (12:16)
[2019-08-12] MEDS ORDERED: ROCURONIUM BROMIDE 50 MG/5 ML SYRINGE ONE (12:16)
--- NOTE | 2019-08-12 12:17 | OP ---
Operative Note - Note: Operative Date: 08/12/19 Pre-Operative Diagnosis: L ureteral calculus, L hydronephrosis, MENG Operation: cystoscopy and L JJ stent insertion Findings: L distal ureteral calculus, L hydronephrosis Post-Operative Diagnosis: Same as Pre-op Surgeon: Hans Kennedy Anesthesiologist/NIGHT AUDITOR: Asher Johnson Anesthesia: General Estimated Blood Loss (mls): 0 Drains & Tubes with Location: 6 fr 28 cm L JJ stent, 18 fr calhoun Operative Report Dictated: Yes
[2019-08-12] MEDS ORDERED: GENTAMICIN SO4 80 MG/2 ML VIAL ONE (12:38)
[2019-08-12] MEDS ORDERED: GENTAMICIN SO4 80 MG/2 ML VIAL IVPB ONE (12:54)
[2019-08-12] MEDS ORDERED: ONDANSETRON 4 MG/2 ML VIAL IVPUSH PRN (13:39)
[2019-08-12] MEDS ORDERED: LORazepam 2 MG/ML SDV VIAL IVPUSH PRN (13:40)
--- NOTE | 2019-08-12 13:56 | CON.PULM ---
Consult Consult Specialty:: PULM/CCM Referred by:: Hospitalist Reason for Consultation:: COPD - History of Present Illness Chief Complaint: Abdominal pain History of Present Illness: 69 M, well known from my office practice. Moderate to Severe COPD, on daily Prednisone (10mg). Additional history of CAD, Afib on Eliquis, psoriasis, glaucoma, and cataracts. Admitted via the ER due to lower abdominal pains of [address] imaging : 5 mm calculus at the distal ureter with mild left hydronephrosis Breathing was in AE last week and was taking Prednisone 40mg for a few days. No change in Chronic Bronchitis symptoms. No outpatient need for ABX. - History Source History Provided By: Patient Limitations to Obtaining History: No Limitations - Past Medical History Cardio/Vascular: Yes: AFIB, Hyperlipdemia Pulmonary: Yes: Bronchitis, COPD, Pneumonia. 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 History of Recent Travel: No Home Medications - Allergies Allergies/Adverse Reactions: Allergies Allergy/AdvReac Type Severity Reaction Status Date / Time amoxicillin Allergy Verified 08/12/19 03:51 codeine Allergy Verified 08/12/19 03:51 metronidazole Allergy Verified 08/12/19 03:52 pantoprazole Allergy Verified 08/12/19 03:52 morphine AdvReac Severe Vomiting Verified 08/12/19 03:51 oxycodone AdvReac Severe Vomiting Verified 08/12/19 03:51 metoclopramide [From Reglan] AdvReac Verified 08/12/19 03:52 - Home Medications Home Medications: Ambulatory Orders Albuterol Sulfate 2.5 mg NEB BID 05/22/17 Metoprolol Succinate 25 mg PO DAILY 05/22/17 Albuterol Sulfate Inhaler - [Ventolin Hfa Inhaler -] 1 puff IH PRN 08/12/19 Apixaban [Eliquis] 5 mg PO BID 08/12/19 Atorvastatin Ca [Lipitor] 40 mg PO HS 08/12/19 Brimonidine/Dorzolamide/Pf [Brimonidine 0.15%-Dorzolam 2%] 10 ml OP DAILY 08/12/19 Fluticasone/Umeclidin/Vilanter [Trelegy Ellipta 100-62.5-25] 1 each IH DAILY 08/12/19 Gabapentin 300 mg PO DAILY 08/12/19 Ketoconazole 2% Shampoo [Nizoral 2% Shampoo -] 1 applic TP PRN 08/12/19 Rocklatan 0.02%-0.005% Eye Drp 1 drop OU DAILY 08/12/19 Zolpidem Tartrate [Zolpidem Tartrate ER] 10 mg PO HS 08/12/19 Review of Systems - Review of Systems Constitutional: reports: Malaise. denies: Chills, Fever, Night Sweats Eyes: reports: No Symptoms HENT: reports: No Symptoms Neck: reports: No Symptoms Cardiovascular: denies: Chest Pain, Edema, Palpitations, Shortness of Breath Respiratory: reports: Cough. denies: Orthopnea, PND, Snoring, SOB, SOB on Exertion, Wheezing Gastrointestinal: reports: Abdominal Pain Genitourinary: reports: Flank Pain Breasts: reports: No Symptoms Reported Musculoskeletal: reports: No Symptoms Integumentary: reports: No Symptoms Neurological: reports: No Symptoms Endocrine: reports: No Symptoms Hematology/Lymphatic: reports: No Symptoms Psychiatric: reports: No Symptoms Physical Exam Vital Sings: Vital Signs Temperature 97.7 F 08/12/19 03:49 Pulse Rate 80 08/12/19 06:50 Respiratory Rate 24 H 08/12/19 06:50 Blood Pressure 152/76 08/12/19 06:50 O2 Sat by Pulse Oximetry (%) 98 08/12/19 08:16 Constitutional: Yes: No Distress, Calm, Thin Eyes: Yes: Conjunctiva Clear, EOM Intact HENT: Yes: Atraumatic, Normocephalic Neck: Yes: Supple, Trachea Midline Cardiovascular: Yes: Pulse Irregular Respiratory: Yes: Cough, Diminished, On Nasal O2. No: Accessory Muscle Use, Rales, Rhonchi, SOB, SOB on Exertion, Stridor, Tachypnea, Wheezes ...Inspection: Yes: WNL ...Clubbing: No Gastrointestinal: Yes: Normal Bowel Sounds, Soft. No: Palpable Mass, Pulsatile Mass Renal/: Yes: CVA Tenderness - Right Musculoskeletal: Yes: WNL Extremities: Yes: WNL Edema: No Peripheral Pulses WNL: Yes Integumentary: Yes: WNL Neurological: Yes: WNL, Alert, Oriented ...Motor Strength: WNL Psychiatric: Yes: WNL, Alert, Oriented Labs: CBC, BMP 08/12/19 04:28 08/12/19 04:28 Imaging - Results Cat Scan: Report Reviewed, Image Reviewed Problem List - Problems (1) Acute kidney injury Code(s): N17.9 - ACUTE KIDNEY FAILURE, UNSPECIFIED (2) Hydronephrosis concurrent with and due to calculi of kidney and ureter Code(s): N13.2 - HYDRONEPHROSIS WITH RENAL AND URETERAL CALCULOUS OBSTRUCTION (3) Abdominal pain Code(s): R10.9 - UNSPECIFIED ABDOMINAL PAIN Qualifiers: Abdominal location: generalized Qualified Code(s): R10.84 - Generalized abdominal pain (4) Afib Code(s): I48.91 - UNSPECIFIED ATRIAL FIBRILLATION Qualifiers: Atrial fibrillation type: paroxysmal Qualified Code(s): I48.0 - Paroxysmal atrial fibrillation (5) COPD (chronic obstructive pulmonary disease) Code(s): J44.9 - CHRONIC OBSTRUCTIVE PULMONARY DISEASE, UNSPECIFIED (6) Hyperlipidemia Code(s): E78.5 - HYPERLIPIDEMIA, UNSPECIFIED (7) IBS (irritable bowel syndrome) Code(s): K58.9 - IRRITABLE BOWEL SYNDROME WITHOUT DIARRHEA Qualifiers: Assessment/Plan Can continue daily Prednisone 10mg No indication for Medrol Patient takes Trelegy OD : not formulary : If remains admitted can order Spiriva and Symbicort Supplemental O2 as needed No smoking Will follow Thank you. Dr Lawson
--- NOTE | 2019-08-12 15:59 | ECHO ---
Name: RONALD DRAPER Exam:Adult Echocardiogram Study Date: 08/12/2019 10:34 AM Age: 69 yrs Reason For Study: Pre-op Height: 72 in Weight: 185 lb BSA: 2.1 m2 MMode/2D Measurements & Calculations IVSd: 0.93 cm Ao root diam: 3.8 cm LVIDd: 4.9 cm LA dimension: 3.2 cm LVIDs: 3.1 cm LVPWd: 0.84 cm EDV(Teich): 114.5 ml LVOT diam: 2.0 cm ESV(Teich): 37.6 ml LAV (MOD-bp): 53.4 ml Doppler Measurements & Calculations MV E max kiel: 59.2 cm/sec Ao V2 max: 139.8 cm/sec MV A max kiel: 94.6 cm/sec Ao max P.8 mmHg MV E/A: 0.63 MV dec time: 0.18 sec MATHEW(V,D): 2.6 cm2 LV V1 max P.5 mmHg TR max kiel: 257.9 cm/sec LV V1 max: 116.9 cm/sec TR max P.3 mmHg PA V2 max: 100.4 cm/sec Med Peak E' Kiel: 8.2 cm/sec PA max P.0 mmHg Med E/e': 7.3 Lat Peak E' Kiel: 9.7 cm/sec Lat E/e': 6.1 PI Vmax: 134.4 cm/sec Procedure A complete two-dimensional transthoracic echocardiogram was performed (2D, M-mode, Doppler and color flow Doppler). Left Ventricle The left ventricular size, thickness and function are normal. Ejection Fraction = 55-60%. The left ve ntricular wall motion is normal. Right Ventricle The right ventricle is normal in size and function. Atria Normal left and right atrial size and function. Mitral Valve There is no mitral regurgitation noted. Tricuspid Valve There is trace tricuspid regurgitation. Right ventricular systolic pressure is normal. Aortic Valve The aortic valve is trileaflet. No hemodynamically significant valvular aortic stenosis. No aortic regurgitation is present. Pulmonic Valve There is no pulmonic valvular regurgitation. Great Vessels Mild aortic root dilatation. Pericardium/Pleura There is no pericardial effusion. Interpretation Summary The left ventricular size, thickness and function are normal The right ventricle is normal in size and function. There is trace tricuspid regurgitation. Mild aortic root dilatation. MD Domo Crawley 08/12/2019 03:59 PM
--- NOTE | 2019-08-12 17:34 | EKG ---
Test Reason : Blood Pressure : / mmHG Vent. Rate : 073 BPM Atrial Rate : 073 BPM P-R Int : 132 ms QRS Dur : 076 ms QT Int : 388 ms P-R-T Axes : 066 058 -08 degrees QTc Int : 427 ms POOR DATA QUALITY, INTERPRETATION MAY BE ADVERSELY AFFECTED NORMAL SINUS RHYTHM LEFT VENTRICULAR HYPERTROPHY WITH REPOLARIZATION ABNORMALITY ABNORMAL ECG WHEN COMPARED WITH ECG OF 29-OCT-2017 09:48, T WAVE INVERSION NO LONGER EVIDENT IN ANTERIOR LEADS Confirmed by MERCEDES RICHARDSON MD ([id number]) on 08/12/2019 5:34:33 PM Referred By: Confirmed By:MERCEDES RICHARDSON MD
[2019-08-12] MEDS ORDERED: KETOROLAC TROMETHAMINE 10 MG TABLET PO PRN (17:39)
[2019-08-12] MEDS ORDERED: IBUPROFEN 400 MG TABLET (FP) PO PRN (17:50)
[2019-08-12] MEDS: LACTATED RINGERS SOLUTION 1,000 ML IV SCH (20:25)
[2019-08-12] MEDS: KETOROLAC TROMETHAMINE 15 MG/ML VIAL IVPUSH PRN (21:47)
[2019-08-12] MEDS ORDERED: ATORVASTATIN CA 40 MG TABLET (FP) PO SCH ×2 (22:00)
[2019-08-12] MEDS ORDERED: MELATONIN 5 MG TABLETS PO ONE (22:56)
[2019-08-12] MEDS ORDERED: diphenhydrAMINE HCL 25 MG CAPSULE (FP) PO PRN (22:57)
[2019-08-13] MEDS: LACTATED RINGERS SOLUTION 1,000 ML IV SCH ×2 (01:14→14:24)
[2019-08-13] MEDS: KETOROLAC TROMETHAMINE 15 MG/ML VIAL IVPUSH PRN (04:36)
[2019-08-13] MEDS ORDERED: TAMSULOSIN HCL 0.4 MG CAP PO SCH ×2 (08:30)
[2019-08-13] MEDS: predniSONE 10 MG TABLET (UD) PO SCH (09:05)
[2019-08-13 09:18] LABS: BASO % 0.1 % (0-2.0); HEMATOCRIT 38.1 % (35.4-49); HEMOGLOBIN 12.5 GM/dL (11.7-16.9); LYMPH % 7.1 % (8-40); MCH 31.5 pg (25.7-33.7); MCHC 32.8 g/dl (32.0-35.9); MEAN PLT VOLUME 7.9 fl (7.5-11.1); MONO % 10.4 % (3.8-10.2); NEUT % 82.4 % (42.8-82.8); PLATELET COUNT 237 K/MM3 (134-434); RBC 3.96 M/mm3 (4.00-5.60); RDW 14.7 % (11.9-15.9); WHITE BLOOD COUNT 16.1 K/mm3 (4.0-10.0)
[2019-08-13 09:57] LABS: BLOOD UREA NITROGEN 20.1 mg/dL (7-18); CREATININE 1.1 mg/dL (0.55-1.3); POTASSIUM 4.4 mmol/L (3.5-5.1)
[2019-08-13 09:58] LABS: ALBUMIN 3.1 g/dl (3.4-5.0); BILIRUBIN,TOTAL 0.7 mg/dL (0.2-1); TOT PROT 5.4 g/dl (6.4-8.2)
[2019-08-13] MEDS ORDERED: BRIMONIDINE TARTRATE 0.15% OPHTHALMIC 5 ML BOTTLE OU SCH (10:00)
[2019-08-13] MEDS ORDERED: GABAPENTIN 300 MG CAPSULE PO SCH (10:00)
[2019-08-13] MEDS ORDERED: metoPROLOL SUCCINATE 25 MG TAB.SR.24H (FP) PO SCH (10:00)
[2019-08-13] MEDS: BRIMONIDINE TARTRATE 0.15% OPHTHALMIC 5 ML BOTTLE OU SCH ×2 (10:21→13:31)
--- NOTE | 2019-08-13 10:51 | OP ---
DATE OF OPERATION: 08/12/2019 PREOPERATIVE DIAGNOSIS: Left ureteral calculus, left hydronephrosis. POSTOPERATIVE DIAGNOSIS: Left ureteral calculus, left hydronephrosis. PROCEDURE: Cystoscopy, left double-J stent insertion. SURGEON: Hans Lopes MD FRAME AND SCRAP CRUSHER: None. ANESTHESIA: General via endotracheal tube. ANESTHESIOLOGIST: Zheng Johnson MD SPECIMENS: None. CULTURES: None. DRAINS: A 6-Nicaraguan, 28-cm left double-J stent and an 18-Nicaraguan Morse. ESTIMATED BLOOD LOSS: None. COMPLICATIONS: None. DESCRIPTION OF PROCEDURE: Patient was brought into the operating room, placed on the operating table in a supine position. After administration of intravenous antibiotics, sequential compression devices were placed. Patient was administered general anesthesia via endotracheal tube. He was placed in a dorsal lithotomy position. Indwelling Morse catheter was removed, and genitals and perineum were prepped and draped in the usual sterile manner. A 22-Nicaraguan cystoscope was inserted into the bladder under direct vision. Anterior urethra was normal. The prostatic urethra demonstrated some BPH. The bladder was entered and thoroughly inspected. There were no foreign bodies, tumors, stones, inflammation. Both ureteral orifices were in their usual location, with diminished efflux from the left ureteral orifice. Left ureteral orifice was cannulated with 0.038 guidewire advanced to the level of the left renal pelvis under fluoroscopic and direct visual guidance. A dual-lumen catheter was inserted. Retrograde pyelogram was done, demonstrated mild left hydronephrosis and distal left ureteral calculus. Dual-lumen catheter was removed, and a 6-Nicaraguan 28-cm left double-J stent was inserted over the guidewire under direct visual and fluoroscopic guidance, leaving 1 coil in the renal pelvis and 1 coil in the bladder. Bladder was left full and the instruments removed. An 18-Nicaraguan Morse catheter was placed into the bladder, 10 mL placed in the balloon, placed on gravity drainage. He tolerated the procedure well, transferred to the recovery room in stable condition. HANS LOPES M.D. [id number]
--- NOTE | 2019-08-13 12:36 | PN ---
Progress Note (short form) - Note Progress Note: PULMONARY AWAKE/ALERT BREATHING IS BASELINE VSS/AFEBRILE Constitutional: Yes: No Distress, Calm, Thin Eyes: Yes: Conjunctiva Clear, EOM Intact HENT: Yes: Atraumatic, Normocephalic Neck: Yes: Supple, Trachea Midline Cardiovascular: Yes: Pulse Irregular Respiratory: Yes: Cough, Diminished, On Nasal O2. No: Accessory Muscle Use, Rales, Rhonchi, SOB, SOB on Exertion, Stridor, Tachypnea, Wheezes ...Inspection: Yes: WNL ...Clubbing: No Gastrointestinal: Yes: Normal Bowel Sounds, Soft. No: Palpable Mass, Pulsatile Mass Renal/: Yes: CVA Tenderness - Right Musculoskeletal: Yes: WNL Extremities: Yes: WNL Edema: No Peripheral Pulses WNL: Yes Integumentary: Yes: WNL Neurological: Yes: WNL, Alert, Oriented ...Motor Strength: WNL Psychiatric: Yes: WNL, Alert, Oriented Labs: reviewed Images reviewed (1) Acute kidney injury Code(s): N17.9 - ACUTE KIDNEY FAILURE, UNSPECIFIED (2) Hydronephrosis concurrent with and due to calculi of kidney and ureter Code(s): N13.2 - HYDRONEPHROSIS WITH RENAL AND URETERAL CALCULOUS OBSTRUCTION (3) Abdominal pain Code(s): R10.9 - UNSPECIFIED ABDOMINAL PAIN Qualifiers: Abdominal location: generalized Qualified Code(s): R10.84 - Generalized abdominal pain (4) Afib Code(s): I48.91 - UNSPECIFIED ATRIAL FIBRILLATION Qualifiers: Atrial fibrillation type: paroxysmal Qualified Code(s): I48.0 - Paroxysmal atrial fibrillation (5) COPD (chronic obstructive pulmonary disease) Code(s): J44.9 - CHRONIC OBSTRUCTIVE PULMONARY DISEASE, UNSPECIFIED (6) Hyperlipidemia Code(s): E78.5 - HYPERLIPIDEMIA, UNSPECIFIED (7) IBS (irritable bowel syndrome) Code(s): K58.9 - IRRITABLE BOWEL SYNDROME WITHOUT DIARRHEA Qualifiers: Can continue daily Prednisone 10mg Spiriva and Symbicort added Supplemental O2 as needed No smoking Jovani GRANDA MD GF
[2019-08-13] MEDS: BUDESONIDE/FORMETEROL FUMARATE 160/4.5 mcg INHALER IH SCH ×2 (13:27→22:12)
[2019-08-13] MEDS: TIOTROPIUM BROMIDE 2.5 MCG (SPIRIVA) RESPIMAT INHALER IH SCH (13:27)
--- NOTE | 2019-08-13 14:12 | PN ---
Teaching Attending Note Name of Resident: Mel Florentino ATTENDING PHYSICIAN STATEMENT I saw and evaluated the patient. I reviewed the resident's note and discussed the case with the resident. I agree with the resident's findings and plan as documented. SUBJECTIVE: Seen and examined at bedside. Patient reports pain is improved since procedure. Still with Morse in place draining dark red urine. . Hemoglobin dropped from 14.3-12.5 overnight and WBC increased. OBJECTIVE: Last Vital Signs Temp Pulse Resp BP Pulse Ox 98.0 F 68 20 127/71 94 L 08/13/19 09:44 08/13/19 09:44 08/13/19 09:44 08/13/19 09:44 08/13/19 09:00 PE: per resident note Labs/Imaging: reviewed ASSESSMENT AND PLAN: [age]-year-old male with a history of CAD, A. fib on Eliquis, psoriasis, glaucoma, COPD presents with lower abdominal pain found to have obstructive kidney stone with left hydronephrosis. Kidney stone with left hydronephrosis -Status post cystoscopy and left JJ stent. Currently with Morse in place draining bloody urine Continue fluids Continue Morse Continue to hold Eliquis on board: Appreciate recommendations #COPD At baseline Continue home medications, including steroids Pulmonary on board: Appreciate recommendations #A. fib on Eliquis Holding Eliquis in the setting of gross hematuria Continue metoprolol #BPH Continue tamsulosin
[2019-08-13] MEDS ORDERED: PATIENT'S OWN MEDICATION (NON-FORMULARY) (Brimonidine/Dorzolamide/Pf [Brimonidine 0.15%-Do OP SCH (14:30)
[2019-08-13] MEDS ORDERED: LATANOPROST OU SCH (14:30)
[2019-08-13] MEDS ORDERED: NETARSUDIL OU SCH (14:30)
[2019-08-13] MEDS ORDERED: ALBUTEROL SO4 HFA INHALER IH SCH (14:30)
[2019-08-13] MEDS: GABAPENTIN 300 MG CAPSULE PO SCH (14:59)
[2019-08-13] MEDS: metoPROLOL SUCCINATE 25 MG TAB.SR.24H (FP) PO SCH (14:59)
[2019-08-13] MEDS: KETOCONAZOLE 2 % SHAMPOO 120 ML BOTTLE TP SCH (15:20)
[2019-08-13] MEDS: POLYETHYLENE GLYCOL 3350 119 GM BTL PO SCH ×2 (15:21→21:39)
[2019-08-13] MEDS: ACETAMINOPHEN 1000 MG/100 ML VIAL (NON FORMULARY) IVPB PRN (15:22)
--- NOTE | 2019-08-13 16:50 | PN ---
Physical Exam: SUBJECTIVE: Patient seen and examined OBJECTIVE: Vital Signs Period Temp Pulse Resp BP Sys/Spence Pulse Ox Last 24 Hr 97.6 F-98.2 F 68-81 18-20 127-135/56-73 94-96 GENERAL: The patient is awake, alert, and fully oriented, in no acute distress. HEAD: Normal with no signs of trauma. EYES: PERRL, extraocular movements intact, sclera anicteric, conjunctiva clear. No ptosis. ENT: Ears normal, nares patent, oropharynx clear without exudates, moist mucous membranes. NECK: Trachea midline, full range of motion, supple. LUNGS: Breath sounds equal, clear to auscultation bilaterally, no wheezes, no crackles, no accessory muscle use. HEART: Regular rate and rhythm, S1, S2 without murmur, rub or gallop. ABDOMEN: Soft, nontender, nondistended, normoactive bowel sounds, no guarding, no rebound, no hepatosplenomegaly, no masses. EXTREMITIES: 2+ pulses, warm, well-perfused, no edema. NEUROLOGICAL: Cranial nerves II through XII grossly intact. Normal speech, gait not observed. PSYCH: Normal mood, normal affect. SKIN: Warm, dry, normal turgor, no rashes or lesions noted Laboratory Results - last 24 hr 08/13/19 08/13/19 08:35 08:35 WBC 16.1 H RBC 3.96 L Hgb 12.5 Hct 38.1 MCV 96.0 MCH 31.5 MCHC 32.8 RDW 14.7 Plt Count 237 MPV 7.9 Absolute Neuts (auto) 13.3 H Neutrophils % 82.4 Lymphocytes % 7.1 L D Monocytes % 10.4 H Eosinophils % 0.0 D Basophils % 0.1 Nucleated RBC % 0 Sodium 143 Potassium 4.4 Chloride 110 H Carbon Dioxide 26 Anion Gap 7 L BUN 20.1 H Creatinine 1.1 Est GFR (CKD-EPI)AfAm 80.08 Est GFR (CKD-EPI)NonAf 69.10 Random Glucose 91 Calcium 8.0 L Total Bilirubin 0.7 AST 11 L ALT 20 Alkaline Phosphatase 64 Total Protein 5.4 L Albumin 3.1 L Active Medications Generic Name Dose Route Start Last Admin Trade Name Freq PRN Reason Stop Dose Admin Acetaminophen 1,000 mg 08/13/19 14:39 08/13/19 15:22 Ofirmev Injection - IVPB 08/14/19 14:39 1,000 mg Q8H PRN Administration PAIN LEVEL 4 - 6 Albuterol Sulfate 1 amp 08/12/19 20:54 Ventolin 0.083% Nebulizer Soln - NEB Q4H PRN SHORT OF BREATH/WHEEZING Albuterol Sulfate 1 puff 08/13/19 14:30 Ventolin Hfa Inhaler - IH PRN FRIEDA Atorvastatin Calcium 40 mg 08/13/19 22:00 Lipitor - PO HS FRIEDA Brimonidine Tartrate 1 drop 08/13/19 10:00 08/13/19 13:31 Alphagan 0.15% - OU 1 drop DAILY FRIEDA Administration Budesonide/Formoterol Fumarate 2 puff 08/13/19 12:45 08/13/19 13:27 Symbicort 160/4.5mcg - IH 2 puff BID FRIEDA Administration Diphenhydramine HCl 25 mg 08/12/19 22:57 Benadryl - PO ONCE PRN INSOMNIA Gabapentin 300 mg 08/13/19 14:30 08/13/19 14:59 Neurontin - PO Not Given DAILY FRIEDA Lactated Ringer's 1,000 mls @ 125 mls/hr 08/12/19 13:45 08/13/19 14:24 Lactated Ringers Solution IV Not Given ASDIR FRIEDA Ketoconazole 1 applic 08/13/19 15:30 08/13/19 15:20 Nizoral 2% Shampoo - TP 1 applic DAILY FRIEDA Administration Metoprolol Succinate 25 mg 08/13/19 14:30 08/13/19 14:59 Toprol Xl - PO Not Given DAILY FRIEDA Non-Formulary Medication 1 each 08/13/19 14:30 Fluticasone/Umeclidin/Vilanter [Trelegy Ellipta 100-62.5-25] IH DAILY FRIEDA Non-Formulary Medication 1 drop 08/13/19 14:30 Rocklatan 0.02%-0.005% Eye Drp OU DAILY FRIEDA Non-Formulary Medication 10 ml 08/13/19 14:30 Brimonidine/Dorzolamide/Pf [Brimonidine 0.15%-Dorzolam 2%] OP DAILY FRIEDA Ondansetron HCl 4 mg 08/12/19 13:39 Zofran Injection IVPUSH Q6H PRN NAUSEA AND/OR VOMITING Polyethylene Glycol 17 gm 08/13/19 22:00 08/13/19 15:21 Miralax (For Daily Use) - PO 17 gm BID FRIEDA Administration Prednisone 10 mg 08/13/19 10:00 08/13/19 09:05 Deltasone - PO 10 mg DAILY FRIEDA Administration Tiotropium Edwards 2 puff 08/13/19 12:45 08/13/19 13:27 Spiriva Respimat IH 2 puff DAILY FRIEDA Administration Zolpidem Tartrate 5 mg 08/13/19 22:00 Ambien - PO HS FRIEDA ASSESSMENT/PLAN: 69 year-old male with a history of CAD, A. fib on Eliquis, psoriasis, glaucoma, COPD presents with lower abdominal pain found to have obstructive kidney stone with left hydronephrosis. #5mm nephrolithiasis with left hydronephrosis -S/p cystoscopy and left JJ stent. - Currently with Calhoun in place draining bloody urine free of clots Continue fluids Continue Calhoun with lido jelly as pt had penile pain Continue to hold Eliquis/NSAIDS which will increase bleeding and also NSAIDS due acute rise in Cr yesterday to 1.5 now normalized. on board: Appreciate recommendations regarding follow up in office. Spoke with who says hematuria is normal postop and should resolve in a few days. Also, stone will hopefully pass soon and pt should urinate in a strainer to see if it passes. If it does not pass then he will do either ESWL or ureteroscopic nephrolithotomy to remove the stone. 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 This may impede stone passage or slow it down but is necessary for pt to undergo glaucoma surgery after discharge. #COPD At baseline Continue home medications, including po 10 prednisone Pulmonary on board: Appreciate recommendations of symbicort and spiriva #A. fib on Eliquis Holding Eliquis in the setting of gross hematuria Continue metoprolol #BPH - holding tamsulosin Dispo: spoke to at bedside regarding patients status and will see if dc in AM pending ability to take calhoun out and resolution of hematuria. Visit type - Emergency Visit Emergency Visit: Yes ED Registration Date: 08/12/19 Care time: The patient presented to the Emergency Department on the above date and was hospitalized for further evaluation of their emergent condition. - New Patient This patient is new to me today: Yes Date on this admission: 08/13/19 - Critical Care Critical Care patient: No - Discharge Referral Referred to [facility] No ATTENDING PHYSICIAN STATEMENT I saw and evaluated the patient. I reviewed the resident's note and discussed the case with the resident. I agree with the resident's findings and plan as documented. SUBJECTIVE: OBJECTIVE: ASSESSMENT AND PLAN:
[2019-08-13] MEDS ORDERED: ACETAMINOPHEN 1000 MG/100 ML VIAL (NON FORMULARY) IVPB ONE (20:39)
[2019-08-13] MEDS ORDERED: ATORVASTATIN CA 40 MG TABLET (FP) PO SCH (22:00)
[2019-08-13] MEDS ORDERED: ZOLPIDEM TARTRATE 5 MG TABLET PO SCH (22:00)
[2019-08-13] MEDS ORDERED: ALBUTEROL SULFATE 2.5 MG NEB SCH (22:00)
[2019-08-13] MEDS ORDERED: APIXABAN 5 MG TABLET PO SCH (22:00)
[2019-08-14] MEDS ORDERED: KETOROLAC TROMETHAMINE 15 MG/ML VIAL IM PRN (07:22)
[2019-08-14 08:27] LABS: BASO % 0.3 % (0-2.0); EOS % 0.6 % (0-4.5); HEMATOCRIT 36.1 % (35.4-49); HEMOGLOBIN 12.1 GM/dL (11.7-16.9); MCH 32.3 pg (25.7-33.7); MCHC 33.6 g/dl (32.0-35.9); MEAN CELL VOLUME 95.9 fl (80-96); MEAN PLT VOLUME 7.8 fl (7.5-11.1); MONO % 12.3 % (3.8-10.2); NEUT % 69.8 % (42.8-82.8); PLATELET COUNT 208 K/MM3 (134-434); RBC 3.76 M/mm3 (4.00-5.60); RDW 14.7 % (11.9-15.9); WHITE BLOOD COUNT 9.2 K/mm3 (4.0-10.0)
[2019-08-14 08:36] LABS: ALBUMIN 2.8 g/dl (3.4-5.0); BILIRUBIN,TOTAL 0.7 mg/dL (0.2-1); BLOOD UREA NITROGEN 15.2 mg/dL (7-18); CALCIUM 8.6 mg/dL (8.5-10.1); CREATININE 0.9 mg/dL (0.55-1.3); POTASSIUM 4.2 mmol/L (3.5-5.1)
[2019-08-14] MEDS: ACETAMINOPHEN 1000 MG/100 ML VIAL (NON FORMULARY) IVPB PRN (08:40)
[2019-08-14] MEDS ORDERED: LIDOCAINE HCL 2% JELLY (30 ML/TUBE) TP ONE (09:14)
[2019-08-14] MEDS: GABAPENTIN 300 MG CAPSULE PO SCH (09:34)
[2019-08-14] MEDS: KETOCONAZOLE 2 % SHAMPOO 120 ML BOTTLE TP SCH (09:34)
[2019-08-14] MEDS: BRIMONIDINE TARTRATE 0.15% OPHTHALMIC 5 ML BOTTLE OU SCH ×2 (09:34→11:38)
[2019-08-14] MEDS: predniSONE 10 MG TABLET (UD) PO SCH (09:34)
[2019-08-14] MEDS: POLYETHYLENE GLYCOL 3350 119 GM BTL PO SCH (09:34)
[2019-08-14] MEDS: TIOTROPIUM BROMIDE 2.5 MCG (SPIRIVA) RESPIMAT INHALER IH SCH (09:35)
[2019-08-14] MEDS: metoPROLOL SUCCINATE 25 MG TAB.SR.24H (FP) PO SCH (09:35)
[2019-08-14] MEDS: BUDESONIDE/FORMETEROL FUMARATE 160/4.5 mcg INHALER IH SCH (09:35)
--- NOTE | 2019-08-14 11:29 | PN ---
Progress Note (short form) - Note Progress Note: PULMONARY AWAKE/ALERT BREATHING IS BASELINE VSS/AFEBRILE Constitutional: Yes: No Distress, Calm, Thin Eyes: Yes: Conjunctiva Clear, EOM Intact HENT: Yes: Atraumatic, Normocephalic Neck: Yes: Supple, Trachea Midline Cardiovascular: Yes: Pulse Irregular Respiratory: Yes: Cough, Diminished, On Nasal O2. No: Accessory Muscle Use, Rales, Rhonchi, SOB, SOB on Exertion, Stridor, Tachypnea, Wheezes ...Inspection: Yes: WNL ...Clubbing: No Gastrointestinal: Yes: Normal Bowel Sounds, Soft. No: Palpable Mass, Pulsatile Mass Renal/: Yes: CVA Tenderness - Right Musculoskeletal: Yes: WNL Extremities: Yes: WNL Edema: No Peripheral Pulses WNL: Yes Integumentary: Yes: WNL Neurological: Yes: WNL, Alert, Oriented ...Motor Strength: WNL Psychiatric: Yes: WNL, Alert, Oriented Labs: reviewed Images reviewed (1) Acute kidney injury Code(s): N17.9 - ACUTE KIDNEY FAILURE, UNSPECIFIED (2) Hydronephrosis concurrent with and due to calculi of kidney and ureter Code(s): N13.2 - HYDRONEPHROSIS WITH RENAL AND URETERAL CALCULOUS OBSTRUCTION (3) Abdominal pain Code(s): R10.9 - UNSPECIFIED ABDOMINAL PAIN Qualifiers: Abdominal location: generalized Qualified Code(s): R10.84 - Generalized abdominal pain (4) Afib Code(s): I48.91 - UNSPECIFIED ATRIAL FIBRILLATION Qualifiers: Atrial fibrillation type: paroxysmal Qualified Code(s): I48.0 - Paroxysmal atrial fibrillation (5) COPD (chronic obstructive pulmonary disease) Code(s): J44.9 - CHRONIC OBSTRUCTIVE PULMONARY DISEASE, UNSPECIFIED (6) Hyperlipidemia Code(s): E78.5 - HYPERLIPIDEMIA, UNSPECIFIED (7) IBS (irritable bowel syndrome) Code(s): K58.9 - IRRITABLE BOWEL SYNDROME WITHOUT DIARRHEA Qualifiers: Can continue daily Prednisone 10mg Spiriva/Symbicort Supplemental O2 as needed No smoking Jovani GRANDA MD GF
--- NOTE | 2019-08-14 12:11 | PN ---
Physical Exam: SUBJECTIVE: Patient seen and examined. C/o pain in shaft of penis, ordered lidocaine jelly on calhoun will likely improve pts symptoms. Denies any other acute complaints. OBJECTIVE: Vital Signs Period Temp Pulse Resp BP Sys/Spence Pulse Ox Last 24 Hr 97.4 F-97.7 F 62-69 20-20 93-120/54-67 94 GENERAL: The patient is awake, alert, and fully oriented, in no acute distress. LUNGS: Breath sounds equal, clear to auscultation bilaterally, no wheezes, no crackles, no accessory muscle use. HEART: Regular rate and rhythm, S1, S2 without murmur, rub or gallop. ABDOMEN: Soft, nontender, nondistended. EXTREMITIES: 2+ pulses, warm, well-perfused, no edema. - calhoun draining more pink hematuria improvement from yesterdays sebastián blood, no clots present. Laboratory Results - last 24 hr 08/12/19 08/13/19 08/14/19 07:00 17:35 07:30 WBC 9.2 RBC 3.76 L Hgb 12.1 Hct 36.1 MCV 95.9 MCH 32.3 MCHC 33.6 RDW 14.7 Plt Count 208 MPV 7.8 Absolute Neuts (auto) 6.4 Neutrophils % 69.8 Lymphocytes % 17.0 D Monocytes % 12.3 H Eosinophils % 0.6 D Basophils % 0.3 Nucleated RBC % 0 Sodium Potassium Chloride Carbon Dioxide Anion Gap BUN Creatinine Est GFR (CKD-EPI)AfAm Est GFR (CKD-EPI)NonAf Random Glucose Lactic Acid 2.7 H* Calcium Total Bilirubin AST ALT Alkaline Phosphatase Total Protein Albumin COVID-19 (DASHA) Not detected 08/14/19 07:30 WBC RBC Hgb Hct MCV MCH MCHC RDW Plt Count MPV Absolute Neuts (auto) Neutrophils % Lymphocytes % Monocytes % Eosinophils % Basophils % Nucleated RBC % Sodium 144 Potassium 4.2 Chloride 109 H Carbon Dioxide 33 H Anion Gap 2 L BUN 15.2 Creatinine 0.9 Est GFR (CKD-EPI)AfAm 102.07 Est GFR (CKD-EPI)NonAf 88.07 Random Glucose 79 Lactic Acid Calcium 8.6 Total Bilirubin 0.7 AST 14 L ALT 20 Alkaline Phosphatase 57 Total Protein 5.0 L Albumin 2.8 L COVID-19 (DASHA) Active Medications Generic Name Dose Route Start Last Admin Trade Name Freq PRN Reason Stop Dose Admin Acetaminophen 1,000 mg 08/13/19 14:39 08/14/19 08:40 Ofirmev Injection - IVPB 08/14/19 14:39 1,000 mg Q8H PRN Administration PAIN LEVEL 4 - 6 Albuterol Sulfate 1 amp 08/12/19 20:54 Ventolin 0.083% Nebulizer Soln - NEB Q4H PRN SHORT OF BREATH/WHEEZING Albuterol Sulfate 1 puff 08/13/19 14:30 Ventolin Hfa Inhaler - IH PRN FRIEDA Atorvastatin Calcium 40 mg 08/13/19 22:00 08/13/19 21:35 Lipitor - PO 40 mg HS FRIEDA Administration Brimonidine Tartrate 1 drop 08/13/19 10:00 08/14/19 11:38 Alphagan 0.15% - OU Not Given DAILY FRIEDA Budesonide/Formoterol Fumarate 2 puff 08/13/19 12:45 08/14/19 09:35 Symbicort 160/4.5mcg - IH 2 puff BID FRIEDA Administration Diphenhydramine HCl 25 mg 08/12/19 22:57 Benadryl - PO ONCE PRN INSOMNIA Gabapentin 300 mg 08/13/19 14:30 08/14/19 09:34 Neurontin - PO 300 mg DAILY FRIEDA Administration Lactated Ringer's 1,000 mls @ 125 mls/hr 08/12/19 13:45 08/13/19 14:24 Lactated Ringers Solution IV Not Given ASDIR FRIEDA Ketoconazole 1 applic 08/13/19 15:30 08/14/19 09:34 Nizoral 2% Shampoo - TP 1 applic DAILY FRIEDA Administration Metoprolol Succinate 25 mg 08/13/19 14:30 08/14/19 09:35 Toprol Xl - PO Not Given DAILY FRIEDA Non-Formulary Medication 1 each 08/13/19 14:30 Fluticasone/Umeclidin/Vilanter [Trelegy Ellipta 100-62.5-25] IH DAILY FRIEDA Non-Formulary Medication 1 drop 08/13/19 14:30 Rocklatan 0.02%-0.005% Eye Drp OU DAILY FRIEDA Non-Formulary Medication 10 ml 08/13/19 14:30 Brimonidine/Dorzolamide/Pf [Brimonidine 0.15%-Dorzolam 2%] OP DAILY FRIEDA Ondansetron HCl 4 mg 08/12/19 13:39 Zofran Injection IVPUSH Q6H PRN NAUSEA AND/OR VOMITING Polyethylene Glycol 17 gm 08/13/19 22:00 08/14/19 09:34 Miralax (For Daily Use) - PO Not Given BID FRIEDA Prednisone 10 mg 08/13/19 10:00 08/14/19 09:34 Deltasone - PO 10 mg DAILY FRIEDA Administration Tiotropium [place] 2 puff 08/13/19 12:45 08/14/19 09:35 Spiriva Respimat IH 2 puff DAILY FRIEDA Administration Zolpidem Tartrate 5 mg 08/13/19 22:00 08/13/19 21:35 Ambien - PO 5 mg HS FRIEDA Administration ASSESSMENT/PLAN: 69 year-old male with a history of CAD, A. fib on Eliquis, psoriasis, glaucoma, COPD presents with lower abdominal pain found to have obstructive kidney stone with left hydronephrosis. #5mm nephrolithiasis with left hydronephrosis -S/p cystoscopy and left JJ stent. - Currently with Calhoun in place draining bloody urine free of clots Continue fluids Continue Calhoun with lido jelly as pt had penile pain Continue to hold Eliquis/NSAIDS which will increase bleeding and also NSAIDS due acute rise in Cr yesterday to 1.5 now normalized. on board: Appreciate recommendations regarding follow up in office. Spoke with who says hematuria is normal postop and should resolve in a few days. Also, stone will hopefully pass soon and pt should urinate in a strainer to see if it passes. If it does not pass then he will do either ESWL or ureteroscopic nephrolithotomy to remove the stone. - Pt's flomax d/c'd as it could worsen his glaucoma and will be contraindication to eye surgery as it can cause floppy iris syndrome. This may impede stone passage or slow it down but is necessary for pt to undergo glaucoma surgery after discharge. #COPD At baseline Continue home medications, including po 10 prednisone Pulmonary on board: Appreciate recommendations of symbicort and spiriva #A. fib Holding Eliquis in the setting of gross hematuria Continue metoprolol #BPH - holding tamsulosin Dispo: will see if dc in AM pending ability to take calhoun out and resolution of hematuria, will need to speak with uro. Visit type - Emergency Visit Emergency Visit: Yes ED Registration Date: 08/12/19 Care time: The patient presented to the Emergency Department on the above date and was hospitalized for further evaluation of their emergent condition. - New Patient This patient is new to me today: No - Critical Care Critical Care patient: No - Discharge Referral Referred to [facility] Med P.C.: No ATTENDING PHYSICIAN STATEMENT I saw and evaluated the patient. I reviewed the resident's note and discussed the case with the resident. I agree with the resident's findings and plan as documented. SUBJECTIVE: OBJECTIVE: ASSESSMENT AND PLAN:
--- NOTE | 2019-08-14 12:57 | PN ---
Teaching Attending Note Name of Resident: Benjamin Freeman ATTENDING PHYSICIAN STATEMENT I saw and evaluated the patient. I reviewed the resident's note and discussed the case with the resident. I agree with the resident's findings and plan as documented. SUBJECTIVE: Seen and examined at bedside. White count and lactic acid have resolved. Pat ient now with light pink urine in the Morse catheter. Case discussed with urology. Per urology patient is cleared for discharge and can have Morse removed. We will remove Morse and check post void residual in several hours. If patient is not retaining he will be medically cleared for discharge. OBJECTIVE: Last Vital Signs Temp Pulse Resp BP Pulse Ox 98.0 F 68 20 127/71 94 L 08/13/19 09:44 08/13/19 09:44 08/13/19 09:44 08/13/19 09:44 08/13/19 09:00 PE: per resident note Labs/Imaging: reviewed ASSESSMENT AND PLAN: [age]-year-old male with a history of CAD, A. fib on Eliquis, psoriasis, glaucoma, COPD presents with lower abdominal pain found to have obstructive kidney stone with left hydronephrosis. Kidney stone with left hydronephrosis -Status post cystoscopy and left JJ stent. Currently with Morse in place draining bloody urine Continue fluids Continue Morse Continue to hold Eliquis on board: Appreciate recommendations #COPD At baseline Continue home medications, including steroids Pulmonary on board: Appreciate recommendations #A. fib on Eliquis Holding Eliquis in the setting of gross hematuria. Eliquis should continue to be held for 5 days and should not be restarted until patient's hematuria has completely resolved. Continue metoprolol #BPH Continue tamsulosin
--- NOTE | 2019-08-14 13:46 | PN ---
DEANA Lewis Note Chief Complaint: pt w/ o c/o History of Present Illness: s/p L JJ stent insertion - Objective Vital Signs: Vital Signs Temperature 97.7 F 08/14/19 09:07 Pulse Rate 69 08/14/19 09:07 Respiratory Rate 20 08/14/19 09:07 Blood Pressure 93/54 L 08/14/19 09:07 O2 Sat by Pulse Oximetry (%) 98 08/14/19 09:00 Gastrointestinal: Yes: WNL, Normal Bowel Sounds, Soft, Hernia Genitourinary: Yes: Calhoun Present (blood tinged urine) Labs/Additional Data: CBC, BMP 08/14/19 07:30 08/14/19 07:30 INR, PTT INR 1.08 (0.83-1.09) 08/12/19 04:28 Blood Type Blood Type O POSITIVE 08/12/19 04:28 Blood Type O POSITIVE 08/12/19 04:28 Antibody Screen Negative 08/12/19 04:28 Antibody Screen Negative 08/12/19 04:28 Problem List - Problems (1) Hydronephrosis concurrent with and due to calculi of kidney and ureter Code(s): N13.2 - HYDRONEPHROSIS WITH RENAL AND URETERAL CALCULOUS OBSTRUCTION (2) Acute kidney injury Code(s): N17.9 - ACUTE KIDNEY FAILURE, UNSPECIFIED (3) Ureterolithiasis Assessment/Plan: remove calhoun. ok for disch after voids. rto 1 week to book LULL JJ CHNG vs ESWL L Code(s): N20.1 - CALCULUS OF URETER
[2019-08-14 14:44] VITALS: BP 110/58; PULSE 68; TEMP 97.4
--- NOTE | 2019-08-14 15:14 | DS ---
Physical Exam: SUBJECTIVE: Patient seen and examined. No acute events noted, states his pain has improved and no longer has pain in his back. He denies cp, sob, fevers, chills. OBJECTIVE: Vital Signs Period Temp Pulse Resp BP Sys/Spence Pulse Ox Last 24 Hr 97.4 F-97.7 F 62-69 18-20 93-120/54-67 94-98 PHYSICAL EXAM GENERAL: The patient is awake, alert, and fully oriented, in no acute distress. LUNGS: Breath sounds equal, clear to auscultation bilaterally, no wheezes, no crackles, no accessory muscle use. HEART: Regular rate and rhythm, S1, S2 without murmur, rub or gallop. ABDOMEN: Soft, nontender, nondistended. EXTREMITIES: 2+ pulses, warm, well-perfused, no edema. - calhoun draining more pink hematuria improvement from yesterdays sebastián blood, no clots present. LABS Laboratory Results - last 24 hr 08/12/19 08/13/19 08/14/19 07:00 17:35 07:30 WBC 9.2 RBC 3.76 L Hgb 12.1 Hct 36.1 MCV 95.9 MCH 32.3 MCHC 33.6 RDW 14.7 Plt Count 208 MPV 7.8 Absolute Neuts (auto) 6.4 Neutrophils % 69.8 Lymphocytes % 17.0 D Monocytes % 12.3 H Eosinophils % 0.6 D Basophils % 0.3 Nucleated RBC % 0 Sodium Potassium Chloride Carbon Dioxide Anion Gap BUN Creatinine Est GFR (CKD-EPI)AfAm Est GFR (CKD-EPI)NonAf Random Glucose Lactic Acid 2.7 H* Calcium Total Bilirubin AST ALT Alkaline Phosphatase Total Protein Albumin COVID-19 (DASHA) Not detected 08/14/19 08/14/19 07:30 11:45 WBC RBC Hgb Hct MCV MCH MCHC RDW Plt Count MPV Absolute Neuts (auto) Neutrophils % Lymphocytes % Monocytes % Eosinophils % Basophils % Nucleated RBC % Sodium 144 Potassium 4.2 Chloride 109 H Carbon Dioxide 33 H Anion Gap 2 L BUN 15.2 Creatinine 0.9 Est GFR (CKD-EPI)AfAm 102.07 Est GFR (CKD-EPI)NonAf 88.07 Random Glucose 79 Lactic Acid 1.3 Calcium 8.6 Total Bilirubin 0.7 AST 14 L ALT 20 Alkaline Phosphatase 57 Total Protein 5.0 L Albumin 2.8 L COVID-19 (DASHA) HOSPITAL COURSE: Date of Admission:08/12/19 69 year-old male with a history of CAD, A. fib on Eliquis, psoriasis, glaucoma, COPD presents with lower abdominal pain found to have obstructive kidney stone with left hydronephrosis on CT abd pelvis. Pt underwent cystoscopy and left JJ stent by Dr. Kennedy. Pt started on LR 125/hr for elevated Lactate and hematuria post op. We held Eliquis/NSAIDS to avoid increased bleeding and also NSAIDS due acute rise in Cr yesterday to 1.5 now normalized. on board: Spoke with who said hematuria is normal postop and should resolve in a few days. Also, stone will hopefully pass soon and pt should urinate in a strainer to see if it passes. If it does not pass then he will do either ESWL or ureteroscopic nephrolithotomy to remove the stone. 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 This may impede stone passage or slow it down but is necessary for pt to undergo glaucoma surgery after discharge. Ptold to f/u in Marcia's office within a week. Pulm was consulted as he is a patient of Dr. Lawson on prednisone 10mg daily but did not have any signs of acute exacerbation during admission. Pt will continue eliquis on friday as long as hematuria has stopped fully. Date of Discharge: 08/14/19 Minutes to complete discharge: 35 Discharge Summary Problems reviewed: Yes Reason For Visit: ACUTE KIDNEY INJ,CALCULUS OF URETER,COPD Current Active Problems Acute kidney injury (Acute) COPD exacerbation (Acute) Hydronephrosis concurrent with and due to calculi of kidney and ureter (Acute) Ureterolithiasis (Acute) Abdominal pain (Chronic) Condition: Fair - Instructions Diet, Activity, Other Instructions: You were admitted for having a non-obstructing kidney stone. You were seen and evaluated by urology (Dr. Kennedy) who placed a stent (dilating apparatus to make the stone pass easier) and you had a calhoun placed after the procedure. You had some blood in your urine which is normal post operation. You should definitely follow up with urology within 1 week and sooner if your blood in the urine does not stop within a couple a days. We have since removed the calhoun and you should be able to urinate on your own. You should follow up with your primary care physician in a couple weeks to notify him of your admission and to go over your overall health concerns. Medication we discontinued: We STOPPED Flomax as it can complicate your eye surgery and you may restart it after your eye procedure. We STOPPED your eliquis blood thinner while here because of the procedure you had and now because of your blood in the urine we do not want you to restart it until friday and or you no longer have blood in your urine. You may continue the rest of your home medications as prescribed. You should take tylenol as needed for pain 650mg every 6 hours. You should not take more than 3-4 grams in one day as it can hurt your liver. You should return to the ER if you have any worsening of your current symptoms or: dizziness, chest pain, shortness of breath, severe pain. Referrals: Hans Kennedy MD [Staff Physician] - Disposition: HOME - Home Medications Comprehensive Discharge Medication List: Ambulatory Orders Albuterol Sulfate 2.5 mg NEB BID 05/22/17 Metoprolol Succinate 25 mg PO DAILY 05/22/17 Albuterol Sulfate Inhaler - [Ventolin HFA Inhaler -] 1 puff IH PRN 08/12/19 Atorvastatin Ca [Lipitor] 40 mg PO HS 08/12/19 Brimonidine/Dorzolamide/Pf [Brimonidine 0.15%-Dorzolam 2%] 10 ml OP DAILY 08/12/19 Fluticasone/Umeclidin/Vilanter [Trelegy Ellipta 100-62.5-25] 1 each IH DAILY 08/12/19 Gabapentin 300 mg PO DAILY 08/12/19 Ketoconazole 2% Shampoo [Nizoral 2% Shampoo -] 1 applic TP PRN 08/12/19 Rocklatan 0.02%-0.005% Eye Drp 1 drop OU DAILY 08/12/19 Zolpidem Tartrate [Zolpidem Tartrate ER] 10 mg PO HS 08/12/19 Betamethasone/Propylene Glyc [Betamethasone Dp Aug 0.05% Crm] 15 gm TP DAILY 08/13/19 This patient is new to me today: No Emergency Visit: Yes ED Registration Date: 08/12/19 Care time: The patient presented to the Emergency Department on the above date and was hospitalized for further evaluation of their emergent condition. Critical Care patient: No - Discharge Referral Referred to [facility] Med P.C.: No ATTENDING PHYSICIAN STATEMENT I saw and evaluated the patient. I reviewed the resident's note and discussed the case with the resident. I agree with the resident's findings and plan as documented. SUBJECTIVE: OBJECTIVE: ASSESSMENT AND PLAN:
== END 2019-08-14 15:48 | disposition home or self-care (01) | DRG 660 ==
LOC: JER 03:43 → JERBED 07:22 → J5S 15:05 → J6S 19:35
PROVIDERS: ADMIT Internal Medicine; ATTEND Internal Medicine
PROC: 0T778DZ Dilation of Left Ureter with Intraluminal Device, Via Natural or Artificial Opening Endoscopic (ICD-10-PCS; principal; 2019-08-12 11:00)
DX: N13.2 Hydronephrosis with renal and ureteral calculous obstruction (principal); E87.2 Acidosis; R71.0 Precipitous drop in hematocrit; I10 Essential (primary) hypertension; E78.5 Hyperlipidemia, unspecified; J44.9 Chronic obstructive pulmonary disease, unspecified; N40.0 Benign prostatic hyperplasia without lower urinary tract symptoms; I48.91 Unspecified atrial fibrillation; K57.90 Diverticulosis of intestine, part unspecified, without perforation or abscess without bleeding; K31.84 Gastroparesis; K44.9 Diaphragmatic hernia without obstruction or gangrene; K58.9 Irritable bowel syndrome, unspecified; K40.90 Unilateral inguinal hernia, without obstruction or gangrene, not specified as recurrent; R31.0 Gross hematuria; H26.9 Unspecified cataract; H40.9 Unspecified glaucoma; L40.9 Psoriasis, unspecified; I48.0 Paroxysmal atrial fibrillation; I25.10 Atherosclerotic heart disease of native coronary artery without angina pectoris; N17.9 Acute kidney failure, unspecified; R10.84 Generalized abdominal pain
CPT/HCPCS: 36415; 71275-TC; 74174-TC; 76000-TC-FY; 80053; 81003; 82550; 83605; 83690; 84484; 85025; 85610; 85730; 86850; 86900; 86901; 87086; 93005; 93010; 93306-TC; 94760; 99285-25; J0131; Q9967; U0003

== ENCOUNTER 2019-08-23 11:40 | Day surgery (SDC) | payer OTHER, BC ==
[2019-08-19 10:57] VITALS: BMI 26.4
--- NOTE | 2019-08-23 08:16 | HP ---
History & Physical Update - History History: No Change - Physical Physical: No Change - Assessment Assessment: No Change - Plan Plan: No Change
--- NOTE | 2019-08-23 08:19 | OP ---
Operative Note - Note: Operative Date: 08/23/19 Pre-Operative Diagnosis: L ureteral calculus Operation: L ureteroscopic laser lithotripsy and JJ stent change Findings: L ureteral calculus Post-Operative Diagnosis: Same as Pre-op Surgeon: Hans Kennedy Anesthesiologist/GROUP CARE WORKER: Sofía Pettit Anesthesia: General Specimens Removed: L ureteral calculus, L JJ stent Estimated Blood Loss (mls): 0 Drains & Tubes with Location: 6 fr 28 cm L JJ stent Operative Report Dictated: Yes
[2019-08-23] MEDS ORDERED: ONDANSETRON 4 MG/2 ML VIAL IVPUSH PRN (13:21)
[2019-08-23] MEDS ORDERED: ACETAMINOPHEN 1000 MG/100 ML VIAL (NON FORMULARY) IVPB ONE (13:22)
[2019-08-23] MEDS ORDERED: LIDOCAINE HCL/PF 2% SDV 5ML VIAL ONE (13:30)
[2019-08-23] MEDS ORDERED: LACTATED RINGERS SOLUTION 1,000 ML IV SCH (13:30)
[2019-08-23] MEDS ORDERED: MIDAZOLAM HCL 2 MG/2 ML SINGLE DOSE VIAL ONE (13:30)
[2019-08-23] MEDS ORDERED: CLINDAMYCIN PHOSPHATE 600 MG/4 ML VIAL ONE (13:30)
[2019-08-23] MEDS ORDERED: PROPOFOL 20 ML ONE ×2 (13:30)
[2019-08-23] MEDS ORDERED: CLINDAMYCIN 600 MG PREMIX BAG IVPB ONE (13:49)
[2019-08-23] MEDS ORDERED: ACETAMINOPHEN INJECTION 100 ML IVPB ONE (14:55)
[2019-08-23 16:27] VITALS: TEMP 97.7
[2019-08-23 17:58] VITALS: BP 138/78; PULSE 76
--- NOTE | 2019-08-23 19:25 | OP ---
DATE OF OPERATION: 08/23/2019 PREOPERATIVE DIAGNOSIS: Left ureteral calculus. Left hydronephrosis. POSTOPERATIVE DIAGNOSIS: Left ureteral calculus. Left hydronephrosis. PROCEDURE: Left ureteroscopic laser lithotripsy, left Double J stent change. SURGEON: Hans Lopes MD. TAP PULLER: None. ANESTHESIA: General via laryngeal mask. ANESTHESIOLOGIST: Sofía Pettit MD. SPECIMENS: Left ureteral calculi, left double J stent. DRAINS: 6-Scottish, 28-cm left Double J stent. ESTIMATED BLOOD LOSS: 5 mL. COMPLICATIONS: None. DESCRIPTION OF PROCEDURE: Patient was brought into the operating room, placed on the operating table in the supine position. After administration of intravenous antibiotics, general anesthesia was administered via laryngeal mask. Genitals were prepped and draped in usual sterile manner. A 20-Scottish cystoscope was inserted into the bladder under direct vision. Cystoscopy was performed. This demonstrated no tumors, stones, inflammation. Both ureteral orifices were in the usual location with left Double J stent in good position. Left Double J stent was grasped at its tip, brought to the urethral meatus, cannulated with a 0.03 guidewire. Advanced to the level of the left renal pelvis under fluoroscopic guidance. Left Double J stent was removed, sent to pathology as specimen. Now the semirigid ureteroscope was inserted into the long side of the guidewire to the distal ureter, where a 5-mm stone was identified. Using 365-micron laser fiber, the laser lithotripsy was done. The stone was fragmented into several small fragments. These were basketed and removed. Retrograde pyelogram was done, demonstrated no additional calculi. Guidewire was left coiled in left renal pelvis. Cystoscope was back loaded, and a 6-Scottish, 28-cm, left Double J stent was inserted over the guidewire under direct visual and fluoroscopic guidance, leaving 1 coil in the renal pelvis and 1 coil in the bladder. Bladder was emptied, cystoscope removed. He tolerated the procedure well. Transferred to recovery room in stable condition. HANS LOPES M.D. [id number]
--- NOTE | 2019-08-25 17:03 | PATH ---
Surgical Pathology Report Patient Name: RONALD DRAPER Med. Rec. #: [id number] /Age/Gender: 1950 (Age: 69) / M Account: [id number] Location: [facility] SURGICAL Taken: 08/23/2019 Received: 08/24/2019 Reported: 08/25/2019 Physicians: Hans Kennedy M.D. Specimen(s) Received A: LEFT URETERAL STENT B: LEFT URETERAL STONE Clinical History Left ureteral stone Final Diagnosis A. LEFT URETERAL STENT, REMOVAL: CONSISTENT WITH SEGMENT OF STENT. GROSS EXAMINATION ONLY. B. LEFT URETERAL STONE, REMOVAL: CONSISTENT WITH URETERAL STONE. SENT FOR CHEMICAL ANALYSIS. Electronically Signed Christian Gunter M.D. Gross Description A. Received fresh labeled "left ureteral stent," is a 39 cm in length green, coiled portion of tubing, consistent with a ureteral stent. No soft tissue is present. No sections are submitted, gross only. B. Received fresh labeled "left ureteral stone," are 2 russ-brown, irregular calculi measuring 0.2 and 0.3 cm in greatest dimension. The specimen is sent for chemical analysis. DL/08/24/2019 saudi08/24/2019
[2019-09-14 08:50] LABS: SIZE 4 X 2
[2019-09-14 08:51] LABS: CA OXALATE MONOHYDR. 80%; WEIGHT 16
== END 2019-08-23 18:00 | disposition home or self-care (01) ==
LOC: JASU-SURG 11:40
PROVIDERS: ATTEND Urology
PROC: 0T778DZ Dilation of Left Ureter with Intraluminal Device, Via Natural or Artificial Opening Endoscopic (ICD-10-PCS; 2019-08-23)
PROC: 0TC78ZZ Extirpation of Matter from Left Ureter, Via Natural or Artificial Opening Endoscopic (ICD-10-PCS; principal; 2019-08-23 14:00)
DX: N13.2 Hydronephrosis with renal and ureteral calculous obstruction (principal)
CPT/HCPCS: 36415; 76000-TC-FY; 82360; 88300-TC; 94760; J0131

== ENCOUNTER 2019-08-29 09:29 | Inpatient (IN) | payer OTHER, BC ==
[2019-08-29 11:13] LABS: BASO % 0.5 % (0-2.0); EOS % 0.9 % (0-4.5); HEMATOCRIT 40.3 % (35.4-49); HEMOGLOBIN 13.2 GM/dL (11.7-16.9); LYMPH % 7.4 % (8-40); MCH 31.3 pg (25.7-33.7); MCHC 32.7 g/dl (32.0-35.9); MEAN CELL VOLUME 95.8 fl (80-96); MEAN PLT VOLUME 7.6 fl (7.5-11.1); MONO % 7.9 % (3.8-10.2); NEUT % 83.3 % (42.8-82.8); PLATELET COUNT 263 K/MM3 (134-434); RDW 14.6 % (11.9-15.9); WHITE BLOOD COUNT 9.7 K/mm3 (4.0-10.0)
[2019-08-29] MEDS ORDERED: MAG HYDROX/AL HYDROX/SIMETH 30 ML UNIT-DOSE CUP PO ONE ×2 (11:15→16:54)
[2019-08-29] MEDS ORDERED: FAMOTIDINE 20 MG/50 ML IVPB 20 MG/50 ML MG IVPB ONE ×2 (11:15→11:22)
[2019-08-29] MEDS ORDERED: ONDANSETRON 4 MG/2 ML VIAL IVPUSH ONE ×2 (11:15→16:04)
[2019-08-29] MEDS ORDERED: MAG HYDROX/AL HYDROX/SIMETH 30 ML UNIT-DOSE CUP ONE ×2 (11:22→17:27)
--- NOTE | 2019-08-29 11:27 | EKG ---
Test Reason : Blood Pressure : / mmHG Vent. Rate : 060 BPM Atrial Rate : 060 BPM P-R Int : 130 ms QRS Dur : 084 ms QT Int : 412 ms P-R-T Axes : -08 055 054 degrees QTc Int : 412 ms NORMAL SINUS RHYTHM NONSPECIFIC T WAVE ABNORMALITY ABNORMAL ECG WHEN COMPARED WITH ECG OF 12-AUG-2019 04:27, T WAVE INVERSION NO LONGER EVIDENT IN INFERIOR LEADS Confirmed by DYLAN MARK, MERCEDES ([id number]) on 08/29/2019 11:26:32 AM Referred By: Confirmed By:MERCEDES RICHARDSON MD
--- NOTE | 2019-08-29 11:38 | PDOC ---
History of Present Illness - General Chief Complaint: Pain Stated Complaint: ABDOMINAL PAIN Time Seen by Provider: 08/29/19 10:51 Past History - Medical History Allergies/Adverse Reactions: Allergies Allergy/AdvReac Type Severity Reaction Status Date / Time amoxicillin Allergy Verified 08/29/19 10:00 codeine Allergy Verified 08/29/19 10:00 metronidazole Allergy Verified 08/29/19 10:00 pantoprazole Allergy Verified 08/29/19 10:00 morphine AdvReac Severe Vomiting Verified 08/29/19 10:00 oxycodone AdvReac Severe Vomiting Verified 08/29/19 10:00 metoclopramide [From Reglan] AdvReac Verified 08/29/19 10:00 Home Medications: Ambulatory Orders Metoprolol Succinate 25 mg PO DAILY 05/22/17 Albuterol Sulfate Inhaler - [Ventolin HFA Inhaler -] 1 puff IH PRN 08/12/19 Atorvastatin Ca [Lipitor] 40 mg PO HS 08/12/19 Brimonidine/Dorzolamide/Pf [Brimonidine 0.15%-Dorzolam 2%] 1 drop OU DAILY 08/12/19 Fluticasone/Umeclidin/Vilanter [Trelegy Ellipta 100-62.5-25] 1 each IH DAILY 08/12/19 Gabapentin 300 mg PO DAILY 08/12/19 Ketoconazole 2% Shampoo [Nizoral 2% Shampoo -] 1 applic TP PRN 08/12/19 Rocklatan 0.02%-0.005% Eye Drp 1 drop OU DAILY 08/12/19 Zolpidem Tartrate [Zolpidem Tartrate ER] 12.5 mg PO HS 08/12/19 Betamethasone/Propylene Glyc [Betamethasone Dp Aug 0.05% Crm] 15 gm TP DAILY 08/13/19 Apixaban [Eliquis] 5 mg PO BID 08/19/19 Anemia: No Asthma: No Cancer: No Cardiac Disorders: Yes (A-fib) CVA: No COPD: Yes CHF: No Dementia: No Diabetes: No GI Disorders: Yes (Colon polyps, Diverticulosis, Gastroparesis) Disorders: No HTN: No Hypercholesterolemia: Yes Liver Disease: No Seizures: No Thyroid Disease: No - Surgical History Abdominal Surgery: Yes (LT INGUINAL AND UMBILICAL) Appendectomy: No Cardiac Surgery: No Cholecystectomy: No Lung Surgery: No Neurologic Surgery: No Orthopedic Surgery: Yes (RT ROTATOR CUFF SHOULDER) - Immunization History Immunization Up to Date: Yes - Psycho-Social/Smoking History Smoking History: Never smoked Have you smoked in the past 12 months: No If you are a former smoker, when did you quit?: 1987 Information on smoking cessation initiated: No - Substance Abuse Hx (Audit-C & DAST Scrn) How often the patient has a drink containing alcohol: Never Score: In Men: 4 or > Positive; In Women: 3 or > Positive: 0 Screen Result (Pos requires Nsg. Audit-10AR): Negative In the last yr the pt used illegal drug/Rx for NonMed reason: No Score: Yes response is considered Positive: 0 Screen Result (Positive result requires Nsg. DAST-10): Negative *Physical Exam - Vital Signs Last Vital Signs Temp Pulse Resp BP Pulse Ox 97.7 F 64 17 103/74 97 08/29/19 09:57 08/29/19 09:57 08/29/19 09:57 08/29/19 09:57 08/29/19 09:57 ED Treatment Course - LABORATORY CBC & Chemistry Diagram: 08/29/19 11:00 08/29/19 11:00 - ADDITIONAL ORDERS Additional order review: 08/29/19 11:00 RBC 4.20 MCV 95.8 MCHC 32.7 RDW 14.6 MPV 7.6 Neutrophils % 83.3 H Lymphocytes % 7.4 L D Monocytes % 7.9 Eosinophils % 0.9 Basophils % 0.5 - Medications Given in the ED: ED Medications Discontinued Medications Generic Name Dose Route Start Last Admin Trade Name Jane PRN Reason Stop Dose Admin Al Hydroxide/Mg Hydroxide 30 ml 08/29/19 11:15 08/29/19 11:27 Mylanta Oral Suspension - PO 08/29/19 11:16 30 ml ONCE ONE Administration Ondansetron HCl 4 mg 08/29/19 11:15 08/29/19 11:27 Zofran Injection IVPUSH 08/29/19 11:16 4 mg ONCE ONE Administration Discharge - Follow up/Referral Referrals: Dm Castillo MD [Primary Care Provider] - - Patient Discharge Instructions - Post Discharge Activity
[2019-08-29 11:49] LABS: ALBUMIN 3.4 g/dl (3.4-5.0); ALK PHOS 89 U/L (45-117); ANION GAP 6 MMOL/L (8-16); BILIRUBIN,TOTAL 0.6 mg/dL (0.2-1); CHLORIDE 107 mmol/L (98-107); CO2 27 mmol/L (21-32); CREATININE 1.3 mg/dL (0.55-1.3); GLUCOSE,RANDOM 85 mg/dL (74-106); LIPASE 84 U/L (73-393); POTASSIUM 4.8 mmol/L (3.5-5.1); SGOT/AST 24 U/L (15-37); SGPT/ALT 36 U/L (13-61); SODIUM 140 mmol/L (136-145); TOT PROT 6.3 g/dl (6.4-8.2)
[2019-08-29] MEDS ORDERED: ACETAMINOPHEN 1000 MG/100 ML VIAL (NON FORMULARY) IVPB ONE (12:41)
[2019-08-29] MEDS ORDERED: ACETAMINOPHEN INJECTION 100 ML IVPB ONE (12:57)
--- NOTE | 2019-08-29 13:21 | PDOC ---
Documentation entered by Dayana France SCRIBE, acting as scribe for Kirit Zuñiga MD. Kirit Zuñiga MD: This documentation has been prepared by the Edilma vann Nirvannie, SCRIBE, under my direction and personally reviewed by me in its entirety. I confirm that the documentation accurately reflects all work, treatment, procedures, and medical decision making performed by me. Attending Attestation - Resident Resident Name: Cj Mansfield - ED Attending Attestation I have performed the following: I have examined & evaluated the patient, The case was reviewed & discussed with the resident, I agree w/resident's findings & plan, Exceptions are as noted - HPI HPI: 08/29/19 12:05 The patient is a 69year old male with a significant past medical history of thoracic aortic aneurysm, Afib (Eliquis), HTN, HLD, COPD (no home O2), gastroparesis, BPH, and recent L ureteroscopic laser lithotripsy and JJ stent change (08/22) who presents to the ED with diffuse abdominal pain. Allergies: Per Nursing Notes. Primary Care Physician: Dr. Castillo - Physicial Exam PE: 08/29/19 13:21 See resident exam - Medical Decision Making 08/29/19 13:21 69 M with abdominal pain s/p ureteral stenting. Will evaluate for pyelo. Also consider stent migration. - Labs, UA, UCx - Pain control - Consider CT Discharge - Discharge Information Problems reviewed: Yes Clinical Impression/Diagnosis: Intractable abdominal pain Condition: Stable Disposition: HOME - Follow up/Referral - Patient Discharge Instructions - Post Discharge Activity
[2019-08-29 13:30] LABS: URINE APPEARANCE CLEAR; URINE BILIRUBIN NEGATIVE (NEGATIVE); URINE COLOR YELLOW; URINE GLUCOSE (UA) NEGATIVE (NEGATIVE); URINE KETONE NEGATIVE (NEGATIVE); URINE LEUK ESTERASE NEGATIVE (NEGATIVE); URINE NITRITE NEGATIVE (NEGATIVE); URINE PROTEIN NEGATIVE (NEGATIVE); URINE UROBILINOGEN 0.2 mg/dL (0.2-1.0)
--- NOTE | 2019-08-29 14:11 | PDOC ---
History of Present Illness - General Chief Complaint: Pain Stated Complaint: ABDOMINAL PAIN Time Seen by Provider: 08/29/19 10:51 Past History - Medical History Allergies/Adverse Reactions: Allergies Allergy/AdvReac Type Severity Reaction Status Date / Time amoxicillin Allergy Verified 08/29/19 10:00 codeine Allergy Verified 08/29/19 10:00 metronidazole Allergy Verified 08/29/19 10:00 pantoprazole Allergy Verified 08/29/19 10:00 morphine AdvReac Severe Vomiting Verified 08/29/19 10:00 oxycodone AdvReac Severe Vomiting Verified 08/29/19 10:00 metoclopramide [From Reglan] AdvReac Verified 08/29/19 10:00 Home Medications: Ambulatory Orders Metoprolol Succinate 25 mg PO DAILY 05/22/17 Albuterol Sulfate Inhaler - [Ventolin HFA Inhaler -] 1 puff IH PRN 08/12/19 Atorvastatin Ca [Lipitor] 40 mg PO HS 08/12/19 Brimonidine/Dorzolamide/Pf [Brimonidine 0.15%-Dorzolam 2%] 1 drop OU DAILY 08/12/19 Fluticasone/Umeclidin/Vilanter [Trelegy Ellipta 100-62.5-25] 1 each IH DAILY 08/12/19 Gabapentin 300 mg PO DAILY 08/12/19 Ketoconazole 2% Shampoo [Nizoral 2% Shampoo -] 1 applic TP PRN 08/12/19 Rocklatan 0.02%-0.005% Eye Drp 1 drop OU DAILY 08/12/19 Zolpidem Tartrate [Zolpidem Tartrate ER] 12.5 mg PO HS 08/12/19 Betamethasone/Propylene Glyc [Betamethasone Dp Aug 0.05% Crm] 15 gm TP DAILY 08/13/19 Apixaban [Eliquis] 5 mg PO BID 08/19/19 Anemia: No Asthma: No Cancer: No Cardiac Disorders: Yes (A-fib) CVA: No COPD: Yes CHF: No Dementia: No Diabetes: No GI Disorders: Yes (Colon polyps, Diverticulosis, Gastroparesis) Disorders: No HTN: No Hypercholesterolemia: Yes Liver Disease: No Seizures: No Thyroid Disease: No - Surgical History Abdominal Surgery: Yes (LT INGUINAL AND UMBILICAL) Appendectomy: No Cardiac Surgery: No Cholecystectomy: No Lung Surgery: No Neurologic Surgery: No Orthopedic Surgery: Yes (RT ROTATOR CUFF SHOULDER) - Immunization History Immunization Up to Date: Yes - Psycho-Social/Smoking History Smoking History: Never smoked Have you smoked in the past 12 months: No If you are a former smoker, when did you quit?: 1987 Information on smoking cessation initiated: No - Substance Abuse Hx (Audit-C & DAST Scrn) How often the patient has a drink containing alcohol: Never Score: In Men: 4 or > Positive; In Women: 3 or > Positive: 0 Screen Result (Pos requires Nsg. Audit-10AR): Negative In the last yr the pt used illegal drug/Rx for NonMed reason: No Score: Yes response is considered Positive: 0 Screen Result (Positive result requires Nsg. DAST-10): Negative *Physical Exam - Vital Signs Last Vital Signs Temp Pulse Resp BP Pulse Ox 97.7 F 64 17 103/74 97 08/29/19 09:57 08/29/19 09:57 08/29/19 09:57 08/29/19 09:57 08/29/19 09:57 ED Treatment Course - LABORATORY CBC & Chemistry Diagram: 08/29/19 11:00 08/29/19 11:00 - ADDITIONAL ORDERS Additional order review: Laboratory Results 08/29/19 08/29/19 08/29/19 13:20 11:00 11:00 Sodium 140 Potassium 4.8 Chloride 107 Carbon Dioxide 27 Anion Gap 6 L BUN 16.0 Creatinine 1.3 Est GFR (CKD-EPI)AfAm 65.44 Est GFR (CKD-EPI)NonAf 56.46 Random Glucose 85 Lactic Acid 1.2 Calcium 9.0 Total Bilirubin 0.6 AST 24 ALT 36 Alkaline Phosphatase 89 Creatine Kinase 75 Troponin I < 0.02 Total Protein 6.3 L Albumin 3.4 Lipase 84 Urine Color Yellow Urine Appearance Clear Urine pH 6.0 Ur Specific [place] 1.019 Urine Protein Negative Urine Glucose (UA) Negative Urine Ketones Negative Urine Blood Negative Urine Nitrite Negative Urine Bilirubin Negative Urine Urobilinogen 0.2 Ur Leukocyte Esterase Negative 08/29/19 11:00 RBC 4.20 MCV 95.8 MCHC 32.7 RDW 14.6 MPV 7.6 Neutrophils % 83.3 H Lymphocytes % 7.4 L D Monocytes % 7.9 Eosinophils % 0.9 Basophils % 0.5 - RADIOLOGY Radiology Studies Ordered: Category Date Time Status CHEST X-RAY PORTABLE* [RAD] Stat Radiology 08/29/19 10:44 Completed - Medications Given in the ED: ED Medications Discontinued Medications Generic Name Dose Route Start Last Admin Trade Name Freq PRN Reason Stop Dose Admin Acetaminophen 1,000 mg 08/29/19 12:41 08/29/19 13:11 Ofirmev Injection - IVPB 08/29/19 12:42 1,000 mg ONCE ONE Administration Al Hydroxide/Mg Hydroxide 30 ml 08/29/19 11:15 08/29/19 11:27 Mylanta Oral Suspension - PO 08/29/19 11:16 30 ml ONCE ONE Administration Famotidine/Sodium Chloride 20 mg in 50 mls @ 100 mls/hr 08/29/19 11:15 08/29/19 11:27 Pepcid 20 Mg Premixed Ivpb - IVPB 08/29/19 11:44 100 mls/hr ONCE ONE Administration Ondansetron HCl 4 mg 08/29/19 11:15 08/29/19 11:27 Zofran Injection IVPUSH 08/29/19 11:16 4 mg ONCE ONE Administration Discharge - Discharge Information Problems reviewed: Yes Clinical Impression/Diagnosis: Intractable abdominal pain - Admission Yes - Follow up/Referral Referrals: Dm Castillo MD [Primary Care Provider] - - Patient Discharge Instructions - Post Discharge Activity
[2019-08-29] MEDS ORDERED: KETOROLAC TROMETHAMINE 30 MG/1 ML VIAL ONE (16:04)
[2019-08-29] MEDS ORDERED: KETOROLAC TROMETHAMINE 30 MG/1 ML VIAL IVPUSH ONE (16:04)
--- NOTE | 2019-08-29 18:03 | PN ---
Teaching Attending Note Name of Resident: Tiago Freeman ATTENDING PHYSICIAN STATEMENT I saw and evaluated the patient. I reviewed the resident's note and discussed the case with the resident. I agree with the resident's findings and plan as documented. SUBJECTIVE: CC: Abd pain . HPI: 69 y/o gentleman with h./o COPD, not on O2, Psoriasis, nephrolithiasis and recent admission for L hydronephrosis , Karthik from nephrolithiasis, recent laser lithotripsy and L JJ change on 07/24, A fib, HTN, HLP, thoracic Aortic aneurysm, gastroparesis who presented with abd pain. Pain started on friday one day after stent removal, in epigastric area, now extended to the whole abdomen speciically suprapubic area, pain is continuous, worse now, prevented him form sleeping. He has nausea and dry heaving. No vo,iting. last BM yesterday and before that he has BM daily. did not pass gas today. he feels abd is getting bigger. he denies any SOB, but felt a little winded earlier and had to be placed on O2. . he denies change in meds. on 08/22 he had laser lithotripsy and JJ change, then on 08/25 stent was removed per . He denies hematuria. his pain is different than kidney stone pain. EGS and colo 2 yrs ago by [facility] , no findings OBJECTIVE: NAD, awake, alert, oriented. calm , pleasant, and cooperative MMM, no facial droop. minimal asymmetry in mouth but per it is chronic and it resolves with smiling . CV: RRR, no MRG , No JVD. Lungs: CATB ABd: soft, slightly distended. TTP mainly in epigastric area. but also in suprapubic area, and LLQ. No rebound tenderness . Ext: No edema or erythema on upper or lower extremities. Neuro: EOMI, facial asymmetry as above ( chronic ), tongue and uvula at mid line . strength 5/5 in upper and lower extremities proximally and distally. reflexes 2+ biceps and knee jerk b/l ASSESSMENT AND PLAN: 9 y/o gentleman with h./o COPD, not on O2, Psoriasis, nephrolithiasis and recent admission for L hydronephrosis , Karthik from nephrolithiasis, recent laser lithotripsy and L JJ change on 07/24, A fib, HTN, HLP, thoracic Aortic aneurysm, gastroparesis who presented with abd pain. 1- Abd pain. Unclear etiology a this time. ? gastritis/PUD. Thickening in lower esophagus suggests chronic GERD. No nephrolithiasis are seen and no hydronephrosis. CT image /report was reviewed. metalic object in abd posterior to L colon. On my review this object looks intramuninal. this was not seen on my review of CT from . - will call radiologist to clarify nature of this object - will call dr. Kennedy to clarify what exactly was done and if this object is related to his procedure - Doubt that this pain is from an inferior infarct, EKG with no ischemic changes and trop nlx1 - no signs of UTI . no hematuria . no sepsis, Nl Lactic acid - give PPI, MAalox, clears, Tylenola nd toradol PRN - GI consult for possible colonoscopy for possible foreign body in colon. 2- h.o A fib: cont eliquis and toprol 3- h/o COPD L: cont nebs and inhalers 4- H/o HLP: cont statin HLOC, MEd-Surg
--- NOTE | 2019-08-29 18:31 | HP ---
CHIEF COMPLAINT: Abdominal pain PCP: HISTORY OF PRESENT ILLNESS: Patient is a 69 y/o M with a significant past medical history of thoracic aortic aneurysm, Glaucoma, Afib (Eliquis), HTN, HLD, COPD (no home O2), gastroparesis, BPH, and recent cystoscopy with jj stent insertion (inserted on 08/11, exchanged on 08/22 and removed on 08/28), who presented to [facility] to due intractable abdominal pain. Patient states the pain commenced Friday night; pain is mainly located in the upper abdomen, is intermittent in nature, and sometimes radiates to the lower abdomen. Patient endorses he has been dry heaving and has had no appetite since Friday. Patient states he has taken OTC gas relief pills which have not assuaged his pain. Denies chest pain, shortness of breath, LOC, recent sick contacts, or any lifestyle changes. PMH as above SurgHx- Umbillical hernia repair, inguinal hernia repair, Left eye Stent inserti on for glaucoma FH- Mother Pancreatic cancer. Social- Denies T/A/D Allergies: as documented in EMR ER course was notable for: (1) CTAP---> Mild dilation of the distal esophagus with thickening of its wall versus a small hiatus hernia. Diverticulosis coli without evidence of acute diverticulitis. Interval 1.4 cm metallic density along posterior margin of the distal descending colon, of uncertain etiology. (2) (3) Allergies amoxicillin Allergy (Verified 08/29/19 10:00) codeine Allergy (Verified 08/29/19 10:00) metronidazole Allergy (Verified 08/29/19 10:00) pantoprazole Allergy (Verified 08/29/19 10:00) morphine Adverse Reaction (Severe, Verified 08/29/19 10:00) Vomiting oxycodone Adverse Reaction (Severe, Verified 08/29/19 10:00) Vomiting metoclopramide [From Reglan] Adverse Reaction (Verified 08/29/19 10:00) HOME MEDICATIONS: Home Medications Medication Instructions Recorded Metoprolol Succinate 25 mg PO DAILY 05/22/17 Albuterol Sulfate Inhaler - 1 puff IH PRN 08/12/19 [Ventolin HFA Inhaler -] Atorvastatin Ca [Lipitor] 40 mg PO HS 08/12/19 Brimonidine/Dorzolamide/Pf 1 drop OU DAILY 08/12/19 [Brimonidine 0.15%-Dorzolam 2%] Fluticasone/Umeclidin/Vilanter 1 each IH DAILY 08/12/19 [Trelegy Ellipta 100-62.5-25] Gabapentin 300 mg PO DAILY 08/12/19 Ketoconazole 2% Shampoo [Nizoral 1 applic TP PRN 08/12/19 2% Shampoo -] Rocklatan 0.02%-0.005% Eye Drp 1 drop OU DAILY 08/12/19 Zolpidem Tartrate [Zolpidem 12.5 mg PO HS 08/12/19 Tartrate ER] Betamethasone/Propylene Glyc 15 gm TP DAILY 08/13/19 [Betamethasone Dp Aug 0.05% Crm] Apixaban [Eliquis] 5 mg PO BID 08/19/19 REVIEW OF SYSTEMS CONSTITUTIONAL: Absent: fever, chills, diaphoresis, generalized weakness, malaise, loss of appetite, weight change HEENT: Absent: rhinorrhea, nasal congestion, throat pain, throat swelling, difficulty swallowing, mouth swelling, ear pain, eye pain, visual changes CARDIOVASCULAR: Absent: chest pain, syncope, palpitations, irregular heart rate, lightheadedness, peripheral edema RESPIRATORY: Absent: cough, shortness of breath, dyspnea with exertion, orthopnea, wheezing, stridor, hemoptysis GASTROINTESTINAL: PRESENT abdominal pain, abdominal distension, nausea, vomiting GENITOURINARY: Absent: dysuria, frequency, urgency, hesitancy, hematuria, flank pain, genital pain MUSCULOSKELETAL: Absent: myalgia, arthralgia, joint swelling, back pain, neck pain SKIN: Absent: rash, itching, pallor HEMATOLOGIC/IMMUNOLOGIC: Absent: easy bleeding, easy bruising, lymphadenopathy, frequent infections ENDOCRINE: Absent: unexplained weight gain, unexplained weight loss, heat intolerance, cold intolerance NEUROLOGIC: Absent: headache, focal weakness or paresthesias, dizziness, unsteady gait, seizure, mental status changes, bladder or bowel incontinence PSYCHIATRIC: Absent: anxiety, depression, suicidal or homicidal ideation, hallucinations. PHYSICAL EXAMINATION Vital Signs - 24 hr 08/29/19 08/29/19 09:57 16:11 Temperature 97.7 F Pulse Rate 64 Pulse Rate [ 57 L Apical] Respiratory 17 18 Rate Blood Pressure 103/74 Blood Pressure 129/71 [Right Arm] O2 Sat by Pulse 97 98 Oximetry (%) GENERAL: NAD HEAD: Normal with no signs of trauma. EYES: EOMI Sclera Clear EARS, NOSE, THROAT: MMM LUNGS: Clear HEART: RRR ABDOMEN: ventral wall hernia, no guarding or rebound, BS+, slightly tender to palpation . LOWER EXTREMITIES: No peripheral edema. NEUROLOGICAL: Cranial nerves II-XII intact. Normal speech. PSYCHIATRIC: Cooperative. Good eye contact. Appropriate mood and affect. SKIN: Warm, dry, normal turgor, no rashes or lesions noted, normal capillary refill. Laboratory Results - last 24 hr 08/29/19 08/29/19 08/29/19 11:00 11:00 11:00 WBC 9.7 RBC 4.20 Hgb 13.2 Hct 40.3 MCV 95.8 MCH 31.3 MCHC 32.7 RDW 14.6 Plt Count 263 D MPV 7.6 Absolute Neuts (auto) 8.1 H Neutrophils % 83.3 H Lymphocytes % 7.4 L D Monocytes % 7.9 Eosinophils % 0.9 Basophils % 0.5 Nucleated RBC % 0 Sodium 140 Potassium 4.8 Chloride 107 Carbon Dioxide 27 Anion Gap 6 L BUN 16.0 Creatinine 1.3 Est GFR (CKD-EPI)AfAm 65.44 Est GFR (CKD-EPI)NonAf 56.46 Random Glucose 85 Lactic Acid 1.2 Calcium 9.0 Total Bilirubin 0.6 AST 24 ALT 36 Alkaline Phosphatase 89 Creatine Kinase 75 Troponin I < 0.02 Total Protein 6.3 L Albumin 3.4 Lipase 84 Urine Color Urine Appearance Urine pH Ur Specific [place] Urine Protein Urine Glucose (UA) Urine Ketones Urine Blood Urine Nitrite Urine Bilirubin Urine Urobilinogen Ur Leukocyte Esterase 08/29/19 13:20 WBC RBC Hgb Hct MCV MCH MCHC RDW Plt Count MPV Absolute Neuts (auto) Neutrophils % Lymphocytes % Monocytes % Eosinophils % Basophils % Nucleated RBC % Sodium Potassium Chloride Carbon Dioxide Anion Gap BUN Creatinine Est GFR (CKD-EPI)AfAm Est GFR (CKD-EPI)NonAf Random Glucose Lactic Acid Calcium Total Bilirubin AST ALT Alkaline Phosphatase Creatine Kinase Troponin I Total Protein Albumin Lipase Urine Color Yellow Urine Appearance Clear Urine pH 6.0 Ur Specific [place] 1.019 Urine Protein Negative Urine Glucose (UA) Negative Urine Ketones Negative Urine Blood Negative Urine Nitrite Negative Urine Bilirubin Negative Urine Urobilinogen 0.2 Ur Leukocyte Esterase Negative ASSESSMENT/PLAN: Patient is a 69 y/o M with a significant past medical history of thoracic aortic aneurysm, Glaucoma, Afib (Eliquis), HTN, HLD, COPD (no home O2), gastroparesis, BPH, and recent cystoscopy with jj stent insertion (inserted on 08/11, exchanged on 08/22 and removed on 08/28), who presented to [facility] to due intractable abdominal pain #Intractable Abdominal Pain 2/2 possible Gastrits/GERD/Foreign object -CTAP-----> Mild dilation of the distal esophagus with thickening of its wall versus a small hiatus hernia. Diverticulosis coli without evidence of acute diverticulitis. Interval 1.4 cm metallic density along posterior margin of the distal descending colon, of uncertain etiology -thickened distal esophagus likely 2/[address] on Famotide IVPB in light of pantoprazole allergy -Maalox -Toradol 15 Q8H PRN and Acetaminophen PRN for pain control -H Pylori Stol antigen -Stool for occult blood -Case discussed with Urology and GI. Dr Shields recommending KUB in am as well as Juan -GI Consult/Uro Consult #Atrial Fibrillation -Resume Eliquis and BB #Glaucoma -Resume home eye drops #COPD -Resume home meds #FEN No fluids Monitor Electrolytes Full Liquid Diet #DVT ppx: Eliquis #Dispo Med-Surg Visit type - Emergency Visit Emergency Visit: Yes ED Registration Date: 08/29/19 Care time: The patient presented to the Emergency Department on the above date and was hospitalized for further evaluation of their emergent condition. - New Patient This patient is new to me today: Yes Date on this admission: 08/29/19 - Critical Care Critical Care patient: No ATTENDING PHYSICIAN STATEMENT I saw and evaluated the patient. I reviewed the resident's note and discussed the case with the resident. I agree with the resident's findings and plan as documented. SUBJECTIVE: OBJECTIVE: ASSESSMENT AND PLAN:
[2019-08-29] MEDS ORDERED: KETOROLAC TROMETHAMINE 15 MG/ML VIAL IVPUSH PRN (18:41)
[2019-08-29] MEDS ORDERED: ACETAMINOPHEN 500 MG TABLET (FP) PO PRN (18:42)
[2019-08-29] MEDS ORDERED: MAG HYDROX/AL HYDROX/SIMETH 30 ML UNIT-DOSE CUP PO PRN (18:42)
[2019-08-29] MEDS ORDERED: ALBUTEROL SO4 HFA INHALER IH PRN (18:45)
[2019-08-29] MEDS ORDERED: KETOCONAZOLE 2 % SHAMPOO 120 ML BOTTLE TP PRN (18:51)
[2019-08-29] MEDS ORDERED: ZOLPIDEM TARTRATE 5 MG TABLET PO PRN (18:51)
[2019-08-29] MEDS ORDERED: PEG 3350/NA SULF BICARB CL/KCL 4000 ML SOLN.RECON PO ONE (19:02)
--- NOTE | 2019-08-29 19:56 | CON.GU ---
Consult Consult Specialty:: Reason for Consultation:: abd pain - History of Present Illness Chief Complaint: abd pain History of Present Illness: 69 y/o gentleman with h./o COPD, not on O2, Psoriasis, nephrolithiasis and recent admission for L hydronephrosis , Karthik from nephrolithiasis, recent laser lithotripsy and L JJ change on 07/24, A fib, HTN, HLP, thoracic Aortic aneurysm, gastroparesis who presented with abd pain. Pain started on friday one day after stent removal, in epigastric area, now extended to the whole abdomen speciically suprapubic area, pain is continuous, worse now, prevented him form sleeping. He has nausea and dry heaving. No vo,iting. last BM yesterday and before that he has BM daily. did not pass gas today. he feels abd is getting bigger. he denies any SOB, but felt a little winded earlier and had to be placed on O2. . he denies change in meds. on 08/22 he had laser lithotripsy and JJ change, then on 08/25 stent was removed per . He denies hematuria. his pain is different than kidney stone pain. EGS and colo 2 yrs ago by [facility] , no findings cons req. pt reports missing tooth the day after L ureteroscopic laser lithotripsy and JJ stent insertion. - History Source History Provided By: Patient, Medical Record - Past Medical History Cardio/Vascular: Yes: AFIB, Hyperlipdemia Pulmonary: Yes: Bronchitis, COPD, Pneumonia. 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 History of Recent Travel: No Home Medications - Allergies Allergies/Adverse Reactions: Allergies Allergy/AdvReac Type Severity Reaction Status Date / Time amoxicillin Allergy Verified 08/29/19 10:00 codeine Allergy Verified 08/29/19 10:00 metronidazole Allergy Verified 08/29/19 10:00 pantoprazole Allergy Verified 08/29/19 10:00 morphine AdvReac Severe Vomiting Verified 08/29/19 10:00 oxycodone AdvReac Severe Vomiting Verified 08/29/19 10:00 metoclopramide [From Reglan] AdvReac Verified 08/29/19 10:00 - Home Medications Home Medications: Ambulatory Orders Metoprolol Succinate 25 mg PO DAILY 05/22/17 Albuterol Sulfate Inhaler - [Ventolin HFA Inhaler -] 1 puff IH PRN 08/12/19 Atorvastatin Ca [Lipitor] 40 mg PO HS 08/12/19 Brimonidine/Dorzolamide/Pf [Brimonidine 0.15%-Dorzolam 2%] 1 drop OU DAILY 08/12/19 Fluticasone/Umeclidin/Vilanter [Trelegy Ellipta 100-62.5-25] 1 each IH DAILY 08/12/19 Gabapentin 300 mg PO DAILY 08/12/19 Ketoconazole 2% Shampoo [Nizoral 2% Shampoo -] 1 applic TP PRN 08/12/19 Rocklatan 0.02%-0.005% Eye Drp 1 drop OU DAILY 08/12/19 Zolpidem Tartrate [Zolpidem Tartrate ER] 12.5 mg PO HS 08/12/19 Betamethasone/Propylene Glyc [Betamethasone Dp Aug 0.05% Crm] 15 gm TP DAILY 08/13/19 Apixaban [Eliquis] 5 mg PO BID 08/19/19 Review of Systems - Review of Systems Gastrointestinal: reports: Abdominal Pain Genitourinary: denies: Flank Pain, Hematuria Physical Exam- Vital Signs: Vital Signs Temperature 97.7 F 08/29/19 09:57 Pulse Rate 57 L 08/29/19 16:11 Respiratory Rate 18 08/29/19 16:11 Blood Pressure 129/71 08/29/19 16:11 O2 Sat by Pulse Oximetry (%) 98 08/29/19 16:11 Gastrointestinal: Yes: Soft, Tenderness Renal/: No: CVA Tenderness - Left Labs: CBC, BMP 08/29/19 11:00 08/29/19 11:00 Imaging - Results Cat Scan: Report Reviewed, Image Reviewed Problem List - Problems (1) Intractable abdominal pain Code(s): R10.9 - UNSPECIFIED ABDOMINAL PAIN (2) Foreign body in colon Assessment/Plan: pt swallowed a crown most likely under anesthesia (during induction) on 08/22. Rec bowel prep w golytely. GI consult re possible colonoscopy. Code(s): T18.4XXA - FOREIGN BODY IN COLON, INITIAL ENCOUNTER
[2019-08-29 20:46] VITALS: BMI 24.7
[2019-08-29] MEDS: ATORVASTATIN CA 40 MG TABLET (FP) PO SCH (21:52)
[2019-08-29] MEDS: FAMOTIDINE 20 MG/50 ML IVPB 20 MG/50 ML MG IVPB SCH (21:52)
[2019-08-29] MEDS: APIXABAN 5 MG TABLET PO SCH (21:52)
[2019-08-29] MEDS ORDERED: ZOLPIDEM TARTRATE 12.5 MG PO SCH (22:00)
[2019-08-30] MEDS ORDERED: ONDANSETRON 4 MG/2 ML VIAL IVPUSH ONE (03:56)
[2019-08-30] MEDS: ONDANSETRON 4 MG/2 ML VIAL IVPUSH PRN ×2 (08:02→16:36)
[2019-08-30] MEDS ORDERED: LATANOPROST OU SCH (10:00)
[2019-08-30] MEDS ORDERED: NETARSUDIL OU SCH (10:00)
[2019-08-30] MEDS ORDERED: PATIENT'S OWN MEDICATION (NON-FORMULARY) (Brimonidine/Dorzolamide/Pf [Brimonidine 0.15%-Do OU SCH (10:00)
[2019-08-30 10:35] LABS: EOS % 1.7 % (0-4.5); HEMATOCRIT 37.1 % (35.4-49); HEMOGLOBIN 12.4 GM/dL (11.7-16.9); LYMPH % 12.1 % (8-40); MCH 31.9 pg (25.7-33.7); MCHC 33.3 g/dl (32.0-35.9); MEAN PLT VOLUME 7.7 fl (7.5-11.1); MONO % 14.9 % (3.8-10.2); NEUT % 70.3 % (42.8-82.8); PLATELET COUNT 235 K/MM3 (134-434); RBC 3.87 M/mm3 (4.00-5.60); RDW 14.3 % (11.9-15.9); WHITE BLOOD COUNT 9.1 K/mm3 (4.0-10.0)
[2019-08-30 10:44] LABS: INR 1.13 (0.83-1.09); PROTHROMBIN TIME (PATIENT) 13.3 SEC (9.7-13.0)
[2019-08-30] MEDS: SODIUM CHLORIDE 1,000 ML IV SCH (10:46)
[2019-08-30] MEDS: BETAMETHASONE DIPR 0.05% CREAM 15 GM TUBE TP SCH (10:46)
[2019-08-30 10:47] LABS: ACTIVATED PTT 27.7 SECONDS (25.2-36.5)
[2019-08-30] MEDS: GABAPENTIN 300 MG CAPSULE PO SCH (10:47)
[2019-08-30] MEDS: metoPROLOL SUCCINATE 25 MG TAB.SR.24H (FP) PO SCH (10:47)
[2019-08-30] MEDS: APIXABAN 5 MG TABLET PO SCH ×2 (10:47→21:52)
[2019-08-30] MEDS: FAMOTIDINE 20 MG/50 ML IVPB 20 MG/50 ML MG IVPB SCH (10:47)
[2019-08-30 11:04] LABS: ALBUMIN 3.4 g/dl (3.4-5.0); BILIRUBIN,TOTAL 0.9 mg/dL (0.2-1); BLOOD UREA NITROGEN 20.3 mg/dL (7-18); CALCIUM 8.8 mg/dL (8.5-10.1); CREATININE 1.6 mg/dL (0.55-1.3); PHOSPHOROUS 2.5 mg/dL (2.5-4.9); POTASSIUM 3.6 mmol/L (3.5-5.1)
[2019-08-30] MEDS ORDERED: PROCHLORPERAZINE MALEATE 5 MG TABLET PO PRN (14:28)
--- NOTE | 2019-08-30 17:34 | CON.GI ---
Consult Consult Specialty:: gi - History of Present Illness History of Present Illness: 69 y/o male with multiple medical problems including AFIB, COPD, L hydronephrosis, severe gastroparesis was asked to be seen because of a foreign body in the colon by CT. He underwent removal of JJ strent 4 days ago. He noted that a crown of his teeth was missing. FUA done today reveal no foreign body. - Past Medical History Cardio/Vascular: Yes: AFIB, Hyperlipdemia Pulmonary: Yes: Bronchitis, COPD, Pneumonia. 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 History of Recent Travel: No Home Medications - Allergies Allergies/Adverse Reactions: Allergies Allergy/AdvReac Type Severity Reaction Status Date / Time amoxicillin Allergy Verified 08/29/19 10:00 codeine Allergy Verified 08/29/19 10:00 metronidazole Allergy Verified 08/29/19 10:00 pantoprazole Allergy Verified 08/29/19 10:00 morphine AdvReac Severe Vomiting Verified 08/29/19 10:00 oxycodone AdvReac Severe Vomiting Verified 08/29/19 10:00 metoclopramide [From Reglan] AdvReac Verified 08/29/19 10:00 - Home Medications Home Medications: Ambulatory Orders Metoprolol Succinate 25 mg PO DAILY 05/22/17 Albuterol Sulfate Inhaler - [Ventolin HFA Inhaler -] 1 puff IH PRN 08/12/19 Atorvastatin Ca [Lipitor] 40 mg PO HS 08/12/19 Brimonidine/Dorzolamide/Pf [Brimonidine 0.15%-Dorzolam 2%] 1 drop OU DAILY 08/12/19 Fluticasone/Umeclidin/Vilanter [Trelegy Ellipta 100-62.5-25] 1 each IH DAILY 08/12/19 Gabapentin 300 mg PO DAILY 08/12/19 Ketoconazole 2% Shampoo [Nizoral 2% Shampoo -] 1 applic TP PRN 08/12/19 Rocklatan 0.02%-0.005% Eye Drp 1 drop OU DAILY 08/12/19 Zolpidem Tartrate [Zolpidem Tartrate ER] 12.5 mg PO HS 08/12/19 Betamethasone/Propylene Glyc [Betamethasone Dp Aug 0.05% Crm] 15 gm TP DAILY 08/13/19 Apixaban [Eliquis] 5 mg PO BID 08/19/19 Physical Exam-GI Vital Signs: Vital Signs Temperature 98.0 F 08/30/19 14:19 Pulse Rate 67 08/30/19 14:19 Respiratory Rate 18 08/30/19 14:19 Blood Pressure 101/46 L 08/30/19 14:19 O2 Sat by Pulse Oximetry (%) 98 08/30/19 14:02 Constitutional: Yes: No Distress Eyes: Yes: Conjunctiva Clear, Occular Prosthesis HENT: Yes: Tonsillar Exudate Cardiovascular: Yes: Regular Rate and Rhythm Respiratory: Yes: CTA Bilaterally ...Palpate: Yes: Soft. No: Firm/Rigid, Guarding, Hepatomegaly, Mass, Pulsatile Mass, Splenomegaly ...Percussion: Yes: Tympanitic Labs: CBC, BMP 08/30/19 09:45 08/30/19 09:45 INR, PTT INR 1.13 (0.83-1.09) H 08/30/19 09:45 Problem List - Problems (1) Abdominal pain Assessment/Plan: mutlfactorial including gastriparesis, dyspepsia IBS, SIBO and exocrine pancreatic insufficiency R> creon with meals xifaxan 550mg TID Famotidine 40mg bid developed extrapyramidal signs with Reglan Code(s): R10.9 - UNSPECIFIED ABDOMINAL PAIN Qualifiers: Abdominal location: generalized Qualified Code(s): R10.84 - Generalized abdominal pain
[2019-08-30] MEDS ORDERED: METOCLOPRAMIDE HCL 10 MG TABLET (FP) PO SCH (17:45)
--- NOTE | 2019-08-30 19:27 | PN ---
Teaching Attending Note Name of Resident: Bobo Balbuena ATTENDING PHYSICIAN STATEMENT I saw and evaluated the patient. I reviewed the resident's note and discussed the case with the resident. I agree with the resident's findings and plan as documented. SUBJECTIVE: seen around 10 am . cont to have epigastric pain and nausea. had lots of diarr hea with the sami OBJECTIVE: NAD MMM . CV: RRR, no MRG, No JVD. Lungs: CATB ABd: soft, same size as yesterday. TTP mainly in epigastric area. No rebound tenderness . hyperactive BS this am Ext: No edema or erythema on upper or lower extremities. ASSESSMENT AND PLAN: 9 y/o gentleman with h./o COPD, not on O2, Psoriasis, nephrolithiasis and recent admission for L hydronephrosis , Meng from nephrolithiasis, recent laser lithotripsy and L JJ change on 07/24, A fib, HTN, HLP, thoracic Aortic aneurysm, gastroparesis who presented with abd pain. 1- Abd pain. multifactoria. appreciate GI input - add compazine in addition to zofran - cont IVF - KUB with no SOB. hyperactive BS could be due to sami - tooth crown is not seen on xray ( passed ) - cont H2 suzanna - check HP stool Ag - montior sx . ? EGD if no improvement - dc toradol due to MENG 2- h.o A fib: cont eliquis and toprol 3- h/o COPD L: cont nebs and inhalers 4- H/o HLP: cont statin 5- L hydro and recent stent removal. no issues 6- MENG: cont IVF. avoid NSAIDs . HLOC
--- NOTE | 2019-08-30 20:26 | PN ---
Physical Exam: SUBJECTIVE: Pt had diarrhea from the golytely. He also reported nausea unresponsive to zofran. Patient seen and examined OBJECTIVE: Vital Signs Period Temp Pulse Resp BP Sys/Spence Pulse Ox Last 24 Hr 97.5 F-98.0 F 59-73 18-18 101-133/46-80 98-98 GENERAL: The patient is awake, alert, and fully oriented, in no acute distress. HEENT: NT/NC, sclera anicteric, No ptosis. MMM LUNGS: Breath sounds equal, clear to auscultation bilaterally, no wheezes, no crackles, no accessory muscle use. HEART: Regular rate and rhythm, S1, S2 without murmur, rub or gallop. ABDOMEN: Increased bowel sounds. Soft abd. TTP in epigastric region. no guarding, no rebound EXTREMITIES: 2+ pulses, warm, well-perfused, no edema. NEUROLOGICAL: Normal speech, gait not observed. PSYCH: Normal mood, normal affect. SKIN: Warm, dry, normal turgor, no rashes or lesions noted Laboratory Results - last 24 hr 08/30/19 08/30/19 08/30/19 09:45 09:45 09:45 WBC 9.1 RBC 3.87 L Hgb 12.4 Hct 37.1 MCV 96.0 MCH 31.9 MCHC 33.3 RDW 14.3 Plt Count 235 MPV 7.7 Absolute Neuts (auto) 6.4 Neutrophils % 70.3 Lymphocytes % 12.1 D Monocytes % 14.9 H D Eosinophils % 1.7 D Basophils % 1.0 Nucleated RBC % 0 PT with INR 13.30 H INR 1.13 H PTT (Actin FS) 27.7 Sodium 139 Potassium 3.6 Chloride 102 Carbon Dioxide 31 Anion Gap 6 L BUN 20.3 H Creatinine 1.6 H Est GFR (CKD-EPI)AfAm 50.91 Est GFR (CKD-EPI)NonAf 43.93 Random Glucose 69 L Calcium 8.8 Phosphorus 2.5 Total Bilirubin 0.9 AST 22 ALT 33 Alkaline Phosphatase 87 Total Protein 6.0 L Albumin 3.4 Active Medications Generic Name Dose Route Start Last Admin Trade Name Freq PRN Reason Stop Dose Admin Acetaminophen 1,000 mg 08/29/19 18:42 Tylenol - PO Q6H PRN PAIN LEVEL 1-5 Al Hydroxide/Mg Hydroxide 30 ml 08/29/19 18:42 08/30/19 07:04 Mylanta Oral Suspension - PO 30 ml Q6H PRN Administration DYSPEPSIA Albuterol Sulfate 1 puff 08/29/19 18:45 Ventolin Hfa Inhaler - IH Q4H PRN SHORTNESS OF BREATH Apixaban 5 mg 08/29/19 22:00 08/30/19 10:47 Eliquis - PO 5 mg BID FRIEDA Administration Atorvastatin Calcium 40 mg 08/29/19 22:00 08/29/19 21:52 Lipitor - PO 40 mg HS FRIEDA Administration Betamethasone Dipropionate 1 applic 08/30/19 10:00 08/30/19 10:46 Diprosone 0.05% Cream - TP 1 applic DAILY FRIEDA Administration Famotidine 40 mg 08/30/19 22:00 Pepcid - PO BID FRIEDA Gabapentin 300 mg 08/30/19 10:00 08/30/19 10:47 Neurontin - PO 300 mg DAILY FRIEDA Administration Sodium Chloride 1,000 mls @ 83 mls/hr 08/30/19 06:00 08/30/19 10:46 Normal Saline - IV 83 mls/hr ASDIR FRIEDA Administration Ketoconazole 1 applic 08/29/19 18:51 Nizoral 2% Shampoo - TP DAILY PRN FOR ITCHING Metoprolol Succinate 25 mg 08/30/19 10:00 08/30/19 10:47 Toprol Xl - PO 25 mg DAILY FRIEDA Administration Non-Formulary Medication 1 each 08/30/19 10:00 Fluticasone/Umeclidin/Vilanter [Trelegy Ellipta 100-62.5-25] IH DAILY FRIEDA Non-Formulary Medication 1 drop 08/30/19 10:00 Rocklatan 0.02%-0.005% Eye Drp OU DAILY FRIEDA Non-Formulary Medication 1 drop 08/30/19 10:00 Brimonidine/Dorzolamide/Pf [Brimonidine 0.15%-Dorzolam 2%] OU DAILY FRIEDA Ondansetron HCl 4 mg 08/30/19 07:52 08/30/19 16:36 Zofran Injection IVPUSH 4 mg Q8H PRN Administration NAUSEA Rifaximin 550 mg 08/30/19 22:00 Xifaxan - PO 09/13/19 14:01 TID FRIEDA Simethicone 80 mg 08/30/19 22:00 Mylicon - PO QID FRIEDA Zolpidem Tartrate 5 mg 08/29/19 18:51 Ambien - PO HS PRN INSOMNIA CTAP: Mild dilation of the distal esophagus with thickening of its wall versus a small hiatus hernia. Diverticulosis coli without evidence of acute diverticulitis. Interval 1.4 cm metallic density along posterior margin of the distal descending colon, of uncertain etiology. ASSESSMENT/PLAN: 69 YO M PMH glaucoma, HTN, HLD, thoracic aortic aneurysm, gastroparesis, COPD, afib (Eliquis), BPH & cystoscopy w/ JJ Stent removal on 08/28 p/w Upper abdominal pain radiating to lower abdomen. #Abdominal Pain -pt was on go lytely today. The crown was not seen on KUB. -zofran & compazine (prochlorperazine) for nausea. Pt develops extrapyramidal signs with Reglan -GI c/s appreciated. Recommended abdominal pain multifactorial (gastroparesis, Small bowel obstruction, pancreatic insufficiency, dyspepsia). > Famotidine 40 mg BID (H2 suzanna) >Xifaxan (Rifaximin) 550 mg TID >creon (pancrelipase )was ordered with meals >simethicone 80 mg PO QID -f/u H. pylori stool antigen. #MENG -c/w IVF -d/c Toradol #HLD c/w atorvastatin 40 mg PO HS #Afib c/w metoprolol & Eliquis #COPD -Not on home O2 -c/w albuterol inhaler #FEN NS monitor BMP lactose restricted diet #DISPO maintain med surg Visit type - Emergency Visit Emergency Visit: Yes ED Registration Date: 08/29/19 Care time: The patient presented to the Emergency Department on the above date and was hospitalized for further evaluation of their emergent condition. - New Patient This patient is new to me today: Yes Date on this admission: 08/29/19 - Critical Care Critical Care patient: No ATTENDING PHYSICIAN STATEMENT I saw and evaluated the patient. I reviewed the resident's note and discussed the case with the resident. I agree with the resident's findings and plan as documented. SUBJECTIVE: OBJECTIVE: ASSESSMENT AND PLAN:
[2019-08-30] MEDS: ATORVASTATIN CA 40 MG TABLET (FP) PO SCH (21:52)
[2019-08-30] MEDS: FAMOTIDINE 20 MG TABLET PO SCH (21:52)
[2019-08-30] MEDS: RIFAXIMIN 550 MG TABLET (UD) PO SCH (21:52)
[2019-08-30] MEDS: SIMETHICONE 80 MG TAB.CHEW (FP) PO SCH (21:52)
[2019-08-31] MEDS: ONDANSETRON 4 MG/2 ML VIAL IVPUSH PRN (03:29)
[2019-08-31] MEDS: SODIUM CHLORIDE 1,000 ML IV SCH (05:57)
[2019-08-31] MEDS: RIFAXIMIN 550 MG TABLET (UD) PO SCH ×2 (05:57→14:55)
[2019-08-31 07:57] LABS: BASO % 1.2 % (0-2.0); EOS % 4.2 % (0-4.5); HEMOGLOBIN 11.2 GM/dL (11.7-16.9); LYMPH % 18.4 % (8-40); MCH 31.4 pg (25.7-33.7); MCHC 32.8 g/dl (32.0-35.9); MEAN CELL VOLUME 95.5 fl (80-96); MEAN PLT VOLUME 7.4 fl (7.5-11.1); MONO % 15.8 % (3.8-10.2); NEUT % 60.4 % (42.8-82.8); PLATELET COUNT 219 K/MM3 (134-434); RBC 3.56 M/mm3 (4.00-5.60); RDW 14.2 % (11.9-15.9); WHITE BLOOD COUNT 6.6 K/mm3 (4.0-10.0)
[2019-08-31 08:29] LABS: ALBUMIN 2.9 g/dl (3.4-5.0); BILIRUBIN,TOTAL 0.7 mg/dL (0.2-1); BLOOD UREA NITROGEN 11.6 mg/dL (7-18); CALCIUM 8.2 mg/dL (8.5-10.1); CREATININE 1.2 mg/dL (0.55-1.3); MAGNESIUM 2.1 mg/dL (1.8-2.4); PHOSPHOROUS 3.1 mg/dL (2.5-4.9); POTASSIUM 4.1 mmol/L (3.5-5.1); TOT PROT 5.1 g/dl (6.4-8.2)
[2019-08-31] MEDS: metoPROLOL SUCCINATE 25 MG TAB.SR.24H (FP) PO SCH (09:22)
[2019-08-31] MEDS: FAMOTIDINE 20 MG TABLET PO SCH (09:22)
[2019-08-31] MEDS: SIMETHICONE 80 MG TAB.CHEW (FP) PO SCH ×2 (09:22→14:57)
[2019-08-31] MEDS: BETAMETHASONE DIPR 0.05% CREAM 15 GM TUBE TP SCH (09:22)
[2019-08-31] MEDS: APIXABAN 5 MG TABLET PO SCH (09:22)
[2019-08-31] MEDS: GABAPENTIN 300 MG CAPSULE PO SCH (09:22)
--- NOTE | 2019-08-31 10:26 | PN ---
Teaching Attending Note Name of Resident: Bobo Balbuena ATTENDING PHYSICIAN STATEMENT I saw and evaluated the patient. I reviewed the resident's note and discussed the case with the resident. I agree with the resident's findings and plan as documented. SUBJECTIVE: Patient has no further pain with no acute distress, tolerating diet well. OBJECTIVE: Vital Signs Temperature 97.8 F 08/31/19 09:20 Pulse Rate 78 08/31/19 09:20 Respiratory Rate 18 08/31/19 09:20 Blood Pressure 101/59 L 08/31/19 09:20 O2 Sat by Pulse Oximetry (%) 98 08/30/19 21:00 PE: per resident's note Abd: no abdominal pain, no tenderness in all quadrants. CBCD WBC 6.6 K/mm3 (4.0-10.0) 08/31/19 07:18 RBC 3.56 M/mm3 (4.00-5.60) L 08/31/19 07:18 Hgb 11.2 GM/dL (11.7-16.9) L 08/31/19 07:18 Hct 34.0 % (35.4-49) L 08/31/19 07:18 MCV 95.5 fl (80-96) 08/31/19 07:18 MCHC 32.8 g/dl (32.0-35.9) 08/31/19 07:18 RDW 14.2 % (11.9-15.9) 08/31/19 07:18 Plt Count 219 K/MM3 (134-434) 08/31/19 07:18 MPV 7.4 fl (7.5-11.1) L 08/31/19 07:18 CMP Sodium 142 mmol/L (136-145) 08/31/19 07:18 Potassium 4.1 mmol/L (3.5-5.1) 08/31/19 07:18 Chloride 111 mmol/L (98-107) H 08/31/19 07:18 Carbon Dioxide 28 mmol/L (21-32) 08/31/19 07:18 Anion Gap 4 MMOL/L (8-16) L 08/31/19 07:18 BUN 11.6 mg/dL (7-18) 08/31/19 07:18 Creatinine 1.2 mg/dL (0.55-1.3) 08/31/19 07:18 Random Glucose 78 mg/dL (74-106) 08/31/19 07:18 Calcium 8.2 mg/dL (8.5-10.1) L 08/31/19 07:18 Total Bilirubin 0.7 mg/dL (0.2-1) 08/31/19 07:18 AST 19 U/L (15-37) 08/31/19 07:18 ALT 26 U/L (13-61) 08/31/19 07:18 Alkaline Phosphatase 73 U/L (45-117) 08/31/19 07:18 Total Protein 5.1 g/dl (6.4-8.2) L 08/31/19 07:18 Albumin 2.9 g/dl (3.4-5.0) L 08/31/19 07:18 CARDIAC ENZYMES Creatine Kinase 75 U/L (26-308) 08/29/19 11:00 Troponin I < 0.02 ng/ml (0.00-0.05) 08/29/19 11:00 Current Medications Generic Name Dose Route Start Last Admin Trade Name Freq PRN Reason Stop Dose Admin Acetaminophen 1,000 mg 08/29/19 18:42 Tylenol - PO Q6H PRN PAIN LEVEL 1-5 Al Hydroxide/Mg Hydroxide 30 ml 08/29/19 18:42 08/30/19 07:04 Mylanta Oral Suspension - PO 30 ml Q6H PRN Administration DYSPEPSIA Albuterol Sulfate 1 puff 08/29/19 18:45 08/31/19 03:28 Ventolin Hfa Inhaler - IH 1 puff Q4H PRN Administration SHORTNESS OF BREATH Apixaban 5 mg 08/29/19 22:00 08/31/19 09:22 Eliquis - PO 5 mg BID FRIEDA Administration Atorvastatin Calcium 40 mg 08/29/19 22:00 08/30/19 21:52 Lipitor - PO 40 mg HS FRIEDA Administration Betamethasone Dipropionate 1 applic 08/30/19 10:00 08/31/19 09:22 Diprosone 0.05% Cream - TP 1 applic DAILY FRIEDA Administration Famotidine 40 mg 08/30/19 22:00 08/31/19 09:22 Pepcid - PO 40 mg BID FRIEDA Administration Gabapentin 300 mg 08/30/19 10:00 08/31/19 09:22 Neurontin - PO 300 mg DAILY FRIEDA Administration Sodium Chloride 1,000 mls @ 83 mls/hr 08/30/19 06:00 08/31/19 05:57 Normal Saline - IV 83 mls/hr ASDIR FRIEDA Administration Ketoconazole 1 applic 08/29/19 18:51 Nizoral 2% Shampoo - TP DAILY PRN FOR ITCHING Metoprolol Succinate 25 mg 08/30/19 10:00 08/31/19 09:22 Toprol Xl - PO 25 mg DAILY FRIEDA Administration Non-Formulary Medication 1 each 08/30/19 10:00 Fluticasone/Umeclidin/Vilanter [Trelegy Ellipta 100-62.5-25] IH DAILY FRIEDA Non-Formulary Medication 1 drop 08/30/19 10:00 Rocklatan 0.02%-0.005% Eye Drp OU DAILY FRIEDA Non-Formulary Medication 1 drop 08/30/19 10:00 Brimonidine/Dorzolamide/Pf [Brimonidine 0.15%-Dorzolam 2%] OU DAILY FRIEDA Ondansetron HCl 4 mg 08/30/19 07:52 08/31/19 03:29 Zofran Injection IVPUSH 4 mg Q8H PRN Administration NAUSEA Rifaximin 550 mg 08/30/19 22:00 08/31/19 05:57 Xifaxan - PO 09/13/19 14:01 550 mg TID FRIEDA Administration Simethicone 80 mg 08/30/19 22:00 08/31/19 09:22 Mylicon - PO 80 mg QID FRIEDA Administration Zolpidem Tartrate 5 mg 08/29/19 18:51 08/30/19 21:52 Ambien - PO 5 mg HS PRN Administration INSOMNIA Home Medications Medication Instructions Recorded Metoprolol Succinate 25 mg PO DAILY 05/22/17 Albuterol Sulfate Inhaler - 1 puff IH PRN 08/12/19 [Ventolin HFA Inhaler -] Atorvastatin Ca [Lipitor] 40 mg PO BID 08/12/19 Brimonidine/Dorzolamide/Pf 1 drop OU DAILY 08/12/19 [Brimonidine 0.15%-Dorzolam 2%] Fluticasone/Umeclidin/Vilanter 1 each IH DAILY 08/12/19 [Trelegy Ellipta 100-62.5-25] Gabapentin 300 mg PO DAILY 08/12/19 Ketoconazole 2% Shampoo [Nizoral 1 applic TP PRN 08/12/19 2% Shampoo -] Rocklatan 0.02%-0.005% Eye Drp 1 drop OU DAILY 08/12/19 Zolpidem Tartrate [Zolpidem 12.5 mg PO HS 08/12/19 Tartrate ER] Betamethasone/Propylene Glyc 15 gm TP DAILY 08/13/19 [Betamethasone Dp Aug 0.05% Crm] Apixaban [Eliquis] 5 mg PO BID 08/19/19 Ezetimibe 10 mg PO DAILY 08/31/19 Famotidine [Pepcid -] 40 mg PO BID #28 tablet 08/31/19 Lipase/Protease/Amylase [Creon Dr 1 cap PO TIDCM #42 capsule. 08/31/19 36,000 Units Capsule] Rifaximin [Xifaxan -] 550 mg PO TID #42 tablet 08/31/19 Microbiology 08/29/19 13:20 Urine - Urine Clean Catch Urine Culture - Final NO GROWTH OBTAINED ASSESSMENT AND PLAN: This patient is a 69yom with Pmhx of COPD( not on home O2), Psoriasis, nephrolithiasis and recent admission for L hydronephrosis , Meng from nephrolithiasis, recent laser lithotripsy and L JJ change on 07/24, A fib, HTN, HLP, thoracic Aortic aneurysm, gastroparesis who presented with abdominal pain. # Acute abdominal pain: resolved , as per GII placed the patient on Rifaximin 550mg po bid for 14 days, also given pepcid 40mg bid and creon 36,000 tid as per GI, discussed with , and adviced to send the patient home on these meds. for 14 days and follow up with GI in a week. #Hx of A fib: on eliquis and toprol continue #Hx of COPD : cont nebs and inhalers #Hx of HLP: cont statin # Left hydro and recent stent removal. no issues # MENG: s/p IVF, resolved , avoid NSAIDs . DVT Px: Eliqustephanie dc patient home, follow up with GI and primary Dr Castillo within a week period.
[2019-08-31 14:14] VITALS: BP 99/61; PULSE 67; TEMP 97.6
--- NOTE | 2019-08-31 23:30 | DS ---
Physical Exam: SUBJECTIVE: No overnight events. Patient seen and examined. Denied N/V, diarrhea, abd pain. OBJECTIVE: Vital Signs Period Temp Pulse Resp BP Sys/Spence Pulse Ox Last 24 Hr 97.6 F-98 F 60-78 18-18 99-110/56-61 98 PHYSICAL EXAM GENERAL: The patient is awake, alert, and fully oriented, in no acute distress. HEENT: NT/NC, sclera anicteric, No ptosis. MMM LUNGS: Breath sounds equal, clear to auscultation bilaterally, no wheezes, no crackles, no accessory muscle use. HEART: Regular rate and rhythm, S1, S2 without murmur, rub or gallop. ABDOMEN: normoactive bowel sounds. Soft abd. non-TTP. no guarding, no rebound EXTREMITIES: 2+ pulses, warm, well-perfused, no edema. NEUROLOGICAL: Normal speech, gait not observed. PSYCH: Normal mood, normal affect. SKIN: Warm, dry, normal turgor, no rashes or lesions noted LABS Laboratory Results - last 24 hr 08/29/19 08/31/19 08/31/19 19:00 07:18 07:18 WBC 6.6 RBC 3.56 L Hgb 11.2 L Hct 34.0 L MCV 95.5 MCH 31.4 MCHC 32.8 RDW 14.2 Plt Count 219 MPV 7.4 L Absolute Neuts (auto) 4.0 Neutrophils % 60.4 Lymphocytes % 18.4 D Monocytes % 15.8 H Eosinophils % 4.2 D Basophils % 1.2 Nucleated RBC % 0 Sodium 142 Potassium 4.1 Chloride 111 H Carbon Dioxide 28 Anion Gap 4 L BUN 11.6 Creatinine 1.2 Est GFR (CKD-EPI)AfAm 72.09 Est GFR (CKD-EPI)NonAf 62.20 Random Glucose 78 Calcium 8.2 L Phosphorus 3.1 Magnesium 2.1 Total Bilirubin 0.7 AST 19 ALT 26 Alkaline Phosphatase 73 Total Protein 5.1 L Albumin 2.9 L COVID-19 (DASHA) Not detected HOSPITAL COURSE: 69 YO M PMH glaucoma, HTN, HLD, thoracic aortic aneurysm, gastroparesis, COPD, afib (Eliquis), BPH & cystoscopy w/ JJ Stent removal on 08/28 p/w Upper abdominal pain radiating to lower abdomen. Pt endorsed that he has been missing a crown from his tooth since his stent removal. CT abdomen/pelvis showed a 1.4 cm metallic density along posterior margin of the distal descending colon. After a regimen of go-lytely and the resulting diarrhea, the crown was no longer seen on a KUB taken later. Zofran & prochlorperazine improved his nausea. Demo Coordinator evaluated the patient and recommended Famotidine 40 mg BID (H2 suzanna), Xifaxan (Rifaximin) 550 mg TID, creon (pancrelipase )was ordered with meals, and simethicone 80 mg PO QID for multifactorial abdominal pain (gastroparesis, Small bowel obstruction, pancreatic insufficiency, dyspepsia). The patients symptoms improved. Pt is stable for discharge. Date of Admission:08/29/19 CTAP: Mild dilation of the distal esophagus with thickening of its wall versus a small hiatus hernia. Diverticulosis coli without evidence of acute diverticulitis. Interval 1.4 cm metallic density along posterior margin of the distal descending colon, of uncertain etiology. Date of Discharge: 08/31/19 Minutes to complete discharge: 41 Discharge Summary Problems reviewed: Yes Reason For Visit: INTRACTABLE ABDOMINAL PAIN Condition: Stable - Instructions Diet, Activity, Other Instructions: You came in to the hospital for abdominal pain. You are stable for discharge now . MEDICATIONS Please continue with your home medications as prescribed. Please take creon 36,000 with meals Please take xifaxan 550mg three times a day Please take Famotidine 40mg twice a day FOLLOW-UP Please follow up with primary care physician, Dr. Castillo, for general health maintenance within a week period . Please follow up with jewel stringer, Dr. Pratt, for follow-up on your abdominal pain within a week period If you have new, worsening, or concerning symptoms, please return to the ED or call 911. Referrals: Robert Pratt MD [Staff Physician] - Dm Castillo MD [Primary Care Provider] - Disposition: HOME - Home Medications Comprehensive Discharge Medication List: Ambulatory Orders Metoprolol Succinate 25 mg PO DAILY 05/22/17 Albuterol Sulfate Inhaler - [Ventolin HFA Inhaler -] 1 puff IH PRN 08/12/19 Atorvastatin Ca [Lipitor] 40 mg PO BID 08/12/19 Brimonidine/Dorzolamide/Pf [Brimonidine 0.15%-Dorzolam 2%] 1 drop OU DAILY 08/12/19 Fluticasone/Umeclidin/Vilanter [Trelegy Ellipta 100-62.5-25] 1 each IH DAILY 08/12/19 Gabapentin 300 mg PO DAILY 08/12/19 Ketoconazole 2% Shampoo [Nizoral 2% Shampoo -] 1 applic TP PRN 08/12/19 Rocklatan 0.02%-0.005% Eye Drp 1 drop OU DAILY 08/12/19 Zolpidem Tartrate [Zolpidem Tartrate ER] 12.5 mg PO HS 08/12/19 Betamethasone/Propylene Glyc [Betamethasone Dp Aug 0.05% Crm] 15 gm TP DAILY 08/13/19 Apixaban [Eliquis] 5 mg PO BID 08/19/19 Ezetimibe 10 mg PO DAILY 08/31/19 Famotidine [Pepcid -] 40 mg PO BID #28 tablet 08/31/19 Lipase/Protease/Amylase [Kaylen Valiente 36,000 Units Capsule] 1 cap PO TIDCM #42 capsule. 08/31/19 Rifaximin [Xifaxan -] 550 mg PO TID #42 tablet 08/31/19 This patient is new to me today: No Emergency Visit: Yes ED Registration Date: 08/29/19 Care time: The patient presented to the Emergency Department on the above date and was hospitalized for further evaluation of their emergent condition. Critical Care patient: No - Discharge Referral Referred to [facility] No ATTENDING PHYSICIAN STATEMENT I saw and evaluated the patient. I reviewed the resident's note and discussed the case with the resident. I agree with the resident's findings and plan as documented. SUBJECTIVE: OBJECTIVE: ASSESSMENT AND PLAN:
== END 2019-08-31 16:55 | disposition home or self-care (01) | DRG 392 ==
LOC: JER 09:29 → JERBED 17:21 → OBSVTOIN 17:21 → J6S 18:40
PROVIDERS: ADMIT Internal Medicine; ATTEND Internal Medicine
DX: R10.84 Generalized abdominal pain (principal); N13.30 Unspecified hydronephrosis; I48.91 Unspecified atrial fibrillation; I10 Essential (primary) hypertension; E78.5 Hyperlipidemia, unspecified; J44.9 Chronic obstructive pulmonary disease, unspecified; N40.0 Benign prostatic hyperplasia without lower urinary tract symptoms; K31.84 Gastroparesis; I71.2 Thoracic aortic aneurysm, without rupture; L40.9 Psoriasis, unspecified; K44.9 Diaphragmatic hernia without obstruction or gangrene; K57.90 Diverticulosis of intestine, part unspecified, without perforation or abscess without bleeding; H40.9 Unspecified glaucoma; G47.00 Insomnia, unspecified; T18.4XXA Foreign body in colon, initial encounter
CPT/HCPCS: 36415; 71045-TC-FY; 74018-TC-FY; 74177-TC; 80053; 81003; 82550; 83605; 83690; 83735; 84100; 84484; 85025; 85610; 85730; 87086; 93005; 93010; 99285-25; J0131; Q9967; U0003

== ENCOUNTER 2021-03-14 11:39 | Inpatient (IN) | payer OTHER, BC ==
[2021-03-14] MEDS ORDERED: ONDANSETRON 4 MG/2 ML VIAL IVPUSH ONE ×2 (13:23→17:13)
[2021-03-14] MEDS ORDERED: FAMOTIDINE 20 MG/50 ML IVPB 20 MG/50 ML MG IVPB ONE ×2 (13:29→13:37)
[2021-03-14] MEDS ORDERED: MAG HYDROX/AL HYDROX/SIMETH 30 ML UNIT-DOSE CUP PO ONE (13:36)
[2021-03-14] MEDS ORDERED: SODIUM CHLORIDE 1,000 ML IV STA (13:37)
[2021-03-14] MEDS ORDERED: ONDANSETRON 4 MG/2 ML VIAL ONE ×2 (13:37→22:27)
[2021-03-14] MEDS ORDERED: ACETAMINOPHEN 1000 MG/100 ML BAG IVPB ONE (13:47)
[2021-03-14] MEDS ORDERED: ACETAMINOPHEN INJECTION 100 ML IVPB ONE (13:58)
[2021-03-14 14:14] LABS: BASO % 0.7 % (0-2.0); EOS % 0.4 % (0-4.5); HEMATOCRIT 37.5 % (35.4-49); HEMOGLOBIN 11.5 GM/dL (11.7-16.9); LYMPH % 10.3 % (8-40); MCH 25.8 pg (25.7-33.7); MCHC 30.6 g/dl (32.0-35.9); MEAN CELL VOLUME 84.2 fl (80-96); MEAN PLT VOLUME 7.2 fl (7.5-11.1); MONO % 6.5 % (3.8-10.2); NEUT % 82.1 % (42.8-82.8); PLATELET COUNT 304 10^3/uL (134-434); RBC 4.45 M/mm3 (4.00-5.60); RDW 16.7 % (11.9-15.9); WHITE BLOOD COUNT 6.6 K/mm3 (4.0-10.0)
[2021-03-14] MEDS ORDERED: MAG HYDROX/AL HYDROX/SIMETH 30 ML UNIT-DOSE CUP ONE (14:20)
[2021-03-14 14:38] LABS: CHLORIDE 108 mmol/L (98-107); SODIUM 140 mmol/L (136-145)
[2021-03-14 14:42] LABS: CALCIUM 9.6 mg/dL (8.5-10.1)
[2021-03-14 14:43] LABS: ALBUMIN 3.4 g/dl (3.4-5.0); ANION GAP 4 MMOL/L (8-16); BLOOD UREA NITROGEN 9.4 mg/dL (7-18); CO2 28 mmol/L (21-32); GLUCOSE,RANDOM 96 mg/dL (74-106); LIPASE 88 U/L (73-393)
[2021-03-14 14:46] LABS: CREATININE 1.1 mg/dL (0.55-1.3); SGOT/AST 12 U/L (15-37)
[2021-03-14 14:47] LABS: BILIRUBIN,TOTAL 0.7 mg/dL (0.2-1); TOT PROT 6.3 g/dl (6.4-8.2)
[2021-03-14 14:49] LABS: ALK PHOS 91 U/L (45-117)
[2021-03-14 14:52] LABS: SGPT/ALT 13 U/L (13-61)
[2021-03-14] MEDS ORDERED: KETOROLAC TROMETHAMINE 30 MG/1 ML VIAL IVPUSH ONE (15:17)
[2021-03-14] MEDS ORDERED: KETOROLAC TROMETHAMINE 30 MG/1 ML VIAL ONE (15:36)
[2021-03-14] MEDS ORDERED: morphine CARPU-JECT 4 MG/1 ML DISP.SYRIN IVPUSH ONE (17:13)
[2021-03-14] MEDS ORDERED: METOCLOPRAMIDE HCL INJECTION 10 MG/2 ML VIAL IVPB ONE (18:08)
[2021-03-14 18:34] LABS: PH,URINE 6.5 (5.0-8.0); URINE APPEARANCE CLEAR; URINE BILIRUBIN NEGATIVE (NEGATIVE); URINE COLOR YELLOW; URINE GLUCOSE (UA) NEGATIVE (NEGATIVE); URINE KETONE NEGATIVE (NEGATIVE); URINE LEUK ESTERASE NEGATIVE (NEGATIVE); URINE NITRITE NEGATIVE (NEGATIVE); URINE PROTEIN NEGATIVE (NEGATIVE); URINE UROBILINOGEN 0.2 mg/dL (0.2-1.0)
[2021-03-14 21:59] LABS: INR 1.28 (0.83-1.09); PROTHROMBIN TIME (PATIENT) 14.7 SEC (9.7-13.0)
[2021-03-14] MEDS ORDERED: ACETAMINOPHEN 1000 MG/100 ML BAG IVPB PRN (21:59)
[2021-03-14] MEDS ORDERED: SIMETHICONE 40 MG/0.6 ML BOTTLE PO PRN (21:59)
[2021-03-14] MEDS ORDERED: HEPARIN NA (PORCINE) 5,000 UNITS/ML 1ML VIAL SQ SCH (22:00)
[2021-03-14] MEDS ORDERED: FAMOTIDINE 20 MG/50 ML IVPB 20 MG/50 ML MG IVPB SCH (22:00)
[2021-03-14] MEDS ORDERED: HEPARIN NA (PORCINE) 5,000 UNITS/ML 1ML VIAL ONE (22:27)
[2021-03-14] MEDS ORDERED: ZOLPIDEM TARTRATE 5 MG TABLET PO ONE (23:41)
[2021-03-14] MEDS ORDERED: ALBUTEROL SO4 HFA INHALER IH PRN (23:45)
[2021-03-15 00:56] VITALS: BMI 24.7
[2021-03-15 09:21] LABS: HEMATOCRIT 34.2 % (35.4-49); HEMOGLOBIN 10.9 GM/dL (11.7-16.9); MCH 26.3 pg (25.7-33.7); MCHC 31.8 g/dl (32.0-35.9); MEAN CELL VOLUME 82.9 fl (80-96); MEAN PLT VOLUME 7.1 fl (7.5-11.1); PLATELET COUNT 256 10^3/uL (134-434); RBC 4.13 M/mm3 (4.00-5.60); RDW 16.8 % (11.9-15.9); WHITE BLOOD COUNT 5.5 K/mm3 (4.0-10.0)
[2021-03-15 09:24] LABS: INR 1.18 (0.83-1.09); PROTHROMBIN TIME (PATIENT) 13.6 SEC (9.7-13.0)
[2021-03-15 09:38] LABS: CALCIUM 8.9 mg/dL (8.5-10.1)
[2021-03-15 09:39] LABS: ALBUMIN 3.2 g/dl (3.4-5.0); BLOOD UREA NITROGEN 10.5 mg/dL (7-18); MAGNESIUM 2.3 mg/dL (1.8-2.4)
[2021-03-15 09:42] LABS: CREATININE 1.1 mg/dL (0.55-1.3); PHOSPHOROUS 2.9 mg/dL (2.5-4.9)
[2021-03-15 09:43] LABS: BILIRUBIN,TOTAL 0.6 mg/dL (0.2-1)
[2021-03-15 09:44] LABS: TOT PROT 5.5 g/dl (6.4-8.2)
[2021-03-15] MEDS ORDERED: PATIENT'S OWN MEDICATION (NON-FORMULARY) (Betamethasone/Propylene Glyc [Betamethasone Dp A TP SCH (10:00)
[2021-03-15] MEDS: FAMOTIDINE 20 MG/50 ML IVPB 20 MG/50 ML MG IVPB SCH (11:01)
[2021-03-15] MEDS: EZETIMIBE 10 MG TABLET (FP) PO SCH (11:01)
[2021-03-15] MEDS: metoPROLOL SUCCINATE 25 MG TAB.SR.24H (FP) PO SCH (11:01)
[2021-03-15] MEDS: GABAPENTIN 100 MG CAPSULE PO SCH (11:01)
[2021-03-15] MEDS: APIXABAN 5 MG TABLET PO SCH ×2 (11:02→21:31)
[2021-03-15] MEDS: FLUTICASONE/UMECLIDIN/VILANTER(100-62.5-25 TRELEGY ELLIPTA) INAHLER IH SCH (11:02)
[2021-03-15] MEDS ORDERED: ONDANSETRON *ODT* 4 MG TABLET SL PRN (11:59)
[2021-03-15 16:33] LABS: RETICULOCYTES 0.81 % (0.5-1.5)
[2021-03-15] MEDS: SIMETHICONE 80 MG TAB.CHEW (FP) PO SCH (21:31)
[2021-03-15] MEDS: RIFAXIMIN 550 MG TABLET PO SCH (21:31)
[2021-03-15] MEDS ORDERED: ONDANSETRON 4 MG/2 ML VIAL IVPUSH PRN (21:37)
[2021-03-15] MEDS ORDERED: ZOLPIDEM TARTRATE 5 MG TABLET PO PRN ×3 (22:00→22:48)
[2021-03-15] MEDS ORDERED: ATORVASTATIN CA 40 MG TABLET (FP) PO SCH (22:00)
[2021-03-15] MEDS ORDERED: ACETAMINOPHEN 1000 MG/100 ML BAG IVPB PRN (22:48)
[2021-03-16 05:00] VITALS: TEMP 97.4
[2021-03-16] MEDS: SIMETHICONE 80 MG TAB.CHEW (FP) PO SCH ×2 (06:47→13:03)
[2021-03-16] MEDS: LIPASE/PROTEASE/AMYLASE 36,000 UNIT CAPSULE PO SCH ×4 (07:45→17:21)
[2021-03-16 09:32] LABS: HEMATOCRIT 34.7 % (35.4-49); HEMOGLOBIN 10.8 GM/dL (11.7-16.9); MCHC 31.3 g/dl (32.0-35.9); MEAN CELL VOLUME 83.2 fl (80-96); MEAN PLT VOLUME 7.5 fl (7.5-11.1); PLATELET COUNT 271 10^3/uL (134-434); RBC 4.17 M/mm3 (4.00-5.60); RDW 16.4 % (11.9-15.9); WHITE BLOOD COUNT 5.9 K/mm3 (4.0-10.0)
[2021-03-16 09:55] LABS: ALBUMIN 3.1 g/dl (3.4-5.0); BLOOD UREA NITROGEN 16.8 mg/dL (7-18); MAGNESIUM 2.3 mg/dL (1.8-2.4)
[2021-03-16 09:58] LABS: CREATININE 1.2 mg/dL (0.55-1.3)
[2021-03-16 09:59] LABS: BILIRUBIN,TOTAL 0.5 mg/dL (0.2-1); TOT PROT 5.5 g/dl (6.4-8.2)
[2021-03-16 10:00] LABS: PHOSPHOROUS 2.7 mg/dL (2.5-4.9)
[2021-03-16] MEDS ORDERED: ZOLPIDEM TARTRATE 5 MG TABLET PO PRN (10:03)
[2021-03-16] MEDS: FLUTICASONE/UMECLIDIN/VILANTER(100-62.5-25 TRELEGY ELLIPTA) INAHLER IH SCH (11:07)
[2021-03-16] MEDS: metoPROLOL SUCCINATE 25 MG TAB.SR.24H (FP) PO SCH (11:07)
[2021-03-16] MEDS: APIXABAN 5 MG TABLET PO SCH (11:07)
[2021-03-16] MEDS: FAMOTIDINE 20 MG/50 ML IVPB 20 MG/50 ML MG IVPB SCH (11:07)
[2021-03-16] MEDS: GABAPENTIN 100 MG CAPSULE PO SCH (11:07)
[2021-03-16] MEDS: EZETIMIBE 10 MG TABLET (FP) PO SCH (11:07)
[2021-03-16] MEDS: RIFAXIMIN 550 MG TABLET PO SCH (11:17)
[2021-03-16 11:19] VITALS: BP 104/57; PULSE 64
== END 2021-03-16 18:03 | disposition home or self-care (01) | DRG 392 ==
LOC: JER 11:39 → JERBED 18:16 → J6S 23:34
PROVIDERS: ADMIT Internal Medicine; ATTEND Internal Medicine
DX: K31.84 Gastroparesis (principal); K86.89 Other specified diseases of pancreas; I10 Essential (primary) hypertension; J44.9 Chronic obstructive pulmonary disease, unspecified; I25.10 Atherosclerotic heart disease of native coronary artery without angina pectoris; I48.0 Paroxysmal atrial fibrillation; K86.9 Disease of pancreas, unspecified; E78.5 Hyperlipidemia, unspecified; R10.13 Epigastric pain; R14.0 Abdominal distension (gaseous); N40.0 Benign prostatic hyperplasia without lower urinary tract symptoms; K57.30 Diverticulosis of large intestine without perforation or abscess without bleeding
CPT/HCPCS: 36415; 71046-TC-FY; 74177-TC; 74182-TC; 80053; 81003; 82550; 82607; 82728; 82746; 83010; 83540; 83550; 83615; 83690; 83735; 84100; 84484; 85025; 85027; 85045; 85610; 86301; 86850; 86900; 86901; 87086; 93005; 93010; 99285-25; A9579; C9803; J0131; J1644; Q0162; Q9967; U0003; U0005

== ENCOUNTER 2021-03-23 12:50 | Inpatient (IN) | payer OTHER, BC ==
[2021-03-23] MEDS ORDERED: morphine CARPU-JECT 4 MG/1 ML DISP.SYRIN IVPUSH ONE (13:22)
[2021-03-23] MEDS ORDERED: ONDANSETRON 4 MG/2 ML VIAL IVPUSH ONE (13:22)
[2021-03-23] MEDS ORDERED: morphine SULFATE 4 MG/ML VIAL ONE (13:28)
[2021-03-23 13:50] LABS: BASO % 1.1 % (0-2.0); EOS % 0.8 % (0-4.5); HEMATOCRIT 37.6 % (35.4-49); HEMOGLOBIN 11.6 GM/dL (11.7-16.9); LYMPH % 14.1 % (8-40); MCH 25.9 pg (25.7-33.7); MCHC 30.9 g/dl (32.0-35.9); MEAN CELL VOLUME 83.9 fl (80-96); MEAN PLT VOLUME 7.2 fl (7.5-11.1); PLATELET COUNT 293 10^3/uL (134-434); RBC 4.48 M/mm3 (4.00-5.60); WHITE BLOOD COUNT 7.5 K/mm3 (4.0-10.0)
[2021-03-23 14:14] LABS: CALCIUM 9.3 mg/dL (8.5-10.1)
[2021-03-23 14:15] LABS: ALBUMIN 3.5 g/dl (3.4-5.0); BLOOD UREA NITROGEN 10.6 mg/dL (7-18)
[2021-03-23 14:19] LABS: BILIRUBIN,TOTAL 0.7 mg/dL (0.2-1); TOT PROT 6.1 g/dl (6.4-8.2)
[2021-03-23] MEDS ORDERED: ACETAMINOPHEN 1000 MG/100 ML BAG IVPB ONE (14:33)
[2021-03-23] MEDS ORDERED: FAMOTIDINE 20 MG/50 ML IVPB 20 MG/50 ML MG IVPB ONE ×3 (14:46→14:53)
[2021-03-23] MEDS ORDERED: SUCRALFATE 1 GM/10 ML UNIT DOSE CUPS PO ONE (14:47)
[2021-03-23] MEDS ORDERED: SUCRALFATE 1 GM TABLET (FP) ONE (14:53)
[2021-03-23] MEDS ORDERED: ACETAMINOPHEN INJECTION 100 ML IVPB ONE (14:53)
[2021-03-23 18:28] VITALS: BMI 24.3
[2021-03-23] MEDS: ONDANSETRON 4 MG/2 ML VIAL IVPUSH PRN ×2 (18:39→22:41)
[2021-03-23] MEDS ORDERED: RIFAXIMIN 550 MG TABLET PO SCH (22:00)
[2021-03-23] MEDS: LIPASE/PROTEASE/AMYLASE 36,000 UNIT CAPSULE PO SCH (22:38)
[2021-03-23] MEDS: ATORVASTATIN CA 40 MG TABLET (FP) PO SCH (22:38)
[2021-03-23] MEDS: RIFAXIMIN 550 MG TABLET PO SCH (22:40)
[2021-03-23] MEDS: FAMOTIDINE 20 MG TABLET PO SCH (22:40)
[2021-03-23] MEDS: SUCRALFATE 1 GM TABLET (FP) PO SCH (22:41)
[2021-03-23] MEDS: ZOLPIDEM TARTRATE 5 MG TABLET PO PRN (22:41)
[2021-03-24] MEDS: RIFAXIMIN 550 MG TABLET PO SCH ×2 (07:31→14:57)
[2021-03-24] MEDS: ONDANSETRON 4 MG/2 ML VIAL IVPUSH PRN ×4 (07:32→21:45)
[2021-03-24] MEDS: LIPASE/PROTEASE/AMYLASE 36,000 UNIT CAPSULE PO SCH ×3 (08:47→17:18)
[2021-03-24 09:04] LABS: EOS % 2.6 % (0-4.5); HEMATOCRIT 34.6 % (35.4-49); HEMOGLOBIN 10.9 GM/dL (11.7-16.9); LYMPH % 20.5 % (8-40); MCH 26.3 pg (25.7-33.7); MCHC 31.4 g/dl (32.0-35.9); MEAN CELL VOLUME 83.7 fl (80-96); MEAN PLT VOLUME 7.4 fl (7.5-11.1); MONO % 12.8 % (3.8-10.2); NEUT % 63.1 % (42.8-82.8); PLATELET COUNT 270 10^3/uL (134-434); RBC 4.13 M/mm3 (4.00-5.60); RDW 16.3 % (11.9-15.9)
[2021-03-24 09:30] LABS: CALCIUM 9.1 mg/dL (8.5-10.1)
[2021-03-24 09:31] LABS: ALBUMIN 3.2 g/dl (3.4-5.0)
[2021-03-24 09:33] LABS: PHOSPHOROUS 2.9 mg/dL (2.5-4.9)
[2021-03-24 09:35] LABS: BILIRUBIN,TOTAL 0.9 mg/dL (0.2-1); TOT PROT 5.4 g/dl (6.4-8.2)
[2021-03-24] MEDS: SUCRALFATE 1 GM TABLET (FP) PO SCH ×2 (09:54→21:44)
[2021-03-24] MEDS: FAMOTIDINE 20 MG TABLET PO SCH ×2 (09:55→21:45)
[2021-03-24] MEDS: metoPROLOL SUCCINATE 25 MG TAB.SR.24H (FP) PO SCH (09:55)
[2021-03-24] MEDS ORDERED: RIVAROXABAN 20 MG TABLET PO SCH (10:00)
[2021-03-24] MEDS ORDERED: FLUTICASONE/UMECLIDIN/VILANTER(100-62.5-25 TRELEGY ELLIPTA) INAHLER IH SCH (10:00)
[2021-03-24] MEDS ORDERED: traMADol HCL 50 MG TABLET PO PRN (14:59)
[2021-03-24] MEDS: FLUTICASONE/UMECLIDIN/VILANTER(200-62.5-25 TRELEGY ELLIPTA) INAHLER IH SCH (15:47)
[2021-03-24] MEDS: RIVAROXABAN 20 MG TABLET PO SCH (17:05)
[2021-03-24] MEDS ORDERED: POLYETHYLENE GLYCOL (HEALTHYLAX) 3350 17 GM PACKET PO ONE (18:45)
[2021-03-24] MEDS ORDERED: diphenhydrAMINE HCL 25 MG CAPSULE (FP) PO ONE (18:45)
[2021-03-24] MEDS: ERYTHROMYCIN INJECTION - 250 MG in SODIUM CHLORIDE 100 ML IVPB SCH (19:18)
[2021-03-24] MEDS: MELATONIN 5 MG TABLETS PO SCH (21:44)
[2021-03-24] MEDS: SCOPOLAMINE HYDROBROMIDE 1 PATCH PATCH.TD72 TD SCH (21:44)
[2021-03-24] MEDS: ZOLPIDEM TARTRATE 5 MG TABLET PO PRN (21:45)
[2021-03-24] MEDS: ATORVASTATIN CA 40 MG TABLET (FP) PO SCH (21:45)
[2021-03-25] MEDS: ONDANSETRON 4 MG/2 ML VIAL IVPUSH PRN ×5 (01:14→22:35)
[2021-03-25] MEDS: ERYTHROMYCIN INJECTION - 250 MG in SODIUM CHLORIDE 100 ML IVPB SCH ×3 (01:39→17:33)
[2021-03-25] MEDS: SCOPOLAMINE HYDROBROMIDE 1 PATCH PATCH.TD72 TD SCH (03:54)
[2021-03-25] MEDS: LIPASE/PROTEASE/AMYLASE 36,000 UNIT CAPSULE PO SCH ×3 (08:35→17:33)
[2021-03-25] MEDS: metoPROLOL SUCCINATE 25 MG TAB.SR.24H (FP) PO SCH (09:17)
[2021-03-25] MEDS: FAMOTIDINE 20 MG TABLET PO SCH ×2 (09:17→22:31)
[2021-03-25] MEDS: SUCRALFATE 1 GM TABLET (FP) PO SCH ×2 (09:18→22:35)
[2021-03-25] MEDS: FLUTICASONE/UMECLIDIN/VILANTER(200-62.5-25 TRELEGY ELLIPTA) INAHLER IH SCH (09:18)
[2021-03-25] MEDS ORDERED: BISACODYL 10 MG SUPP.RECT PR ONE (13:53)
[2021-03-25] MEDS: RIVAROXABAN 20 MG TABLET PO SCH (17:33)
[2021-03-25] MEDS: ATORVASTATIN CA 40 MG TABLET (FP) PO SCH (22:31)
[2021-03-25] MEDS: MELATONIN 5 MG TABLETS PO SCH (22:31)
[2021-03-25] MEDS: ZOLPIDEM TARTRATE 5 MG TABLET PO PRN (22:31)
[2021-03-26] MEDS ORDERED: ACETAMINOPHEN 325 MG TABLET (FP) PO ONE (00:55)
[2021-03-26] MEDS ORDERED: QUEtiapine FUMARATE 25 MG TABLET PO ONE (01:13)
[2021-03-26] MEDS: ERYTHROMYCIN INJECTION - 250 MG in SODIUM CHLORIDE 100 ML IVPB SCH ×3 (02:11→17:50)
[2021-03-26] MEDS ORDERED: HALOPERIDOL LACTATE 5 MG/ML IM ONE (02:24)
[2021-03-26] MEDS: LIPASE/PROTEASE/AMYLASE 36,000 UNIT CAPSULE PO SCH ×3 (09:34→17:50)
[2021-03-26] MEDS: FAMOTIDINE 20 MG TABLET PO SCH ×2 (09:34→22:05)
[2021-03-26] MEDS: metoPROLOL SUCCINATE 25 MG TAB.SR.24H (FP) PO SCH (09:34)
[2021-03-26] MEDS: FLUTICASONE/UMECLIDIN/VILANTER(200-62.5-25 TRELEGY ELLIPTA) INAHLER IH SCH (09:34)
[2021-03-26] MEDS: SUCRALFATE 1 GM TABLET (FP) PO SCH ×2 (09:34→22:05)
[2021-03-26 10:56] LABS: BASO % 0.8 % (0-2.0); EOS % 1.7 % (0-4.5); HEMATOCRIT 33.9 % (35.4-49); HEMOGLOBIN 10.8 GM/dL (11.7-16.9); LYMPH % 13.2 % (8-40); MCH 26.6 pg (25.7-33.7); MCHC 31.7 g/dl (32.0-35.9); MEAN CELL VOLUME 83.9 fl (80-96); MEAN PLT VOLUME 7.5 fl (7.5-11.1); MONO % 12.8 % (3.8-10.2); NEUT % 71.5 % (42.8-82.8); PLATELET COUNT 259 10^3/uL (134-434); RBC 4.04 M/mm3 (4.00-5.60); RDW 16.8 % (11.9-15.9); WHITE BLOOD COUNT 7.2 K/mm3 (4.0-10.0)
[2021-03-26 11:16] LABS: CALCIUM 9.1 mg/dL (8.5-10.1)
[2021-03-26 11:18] LABS: ALBUMIN 3.3 g/dl (3.4-5.0); MAGNESIUM 2.1 mg/dL (1.8-2.4)
[2021-03-26 11:20] LABS: BILIRUBIN,TOTAL 0.7 mg/dL (0.2-1); CREATININE 1.2 mg/dL (0.55-1.3); PHOSPHOROUS 2.7 mg/dL (2.5-4.9); TOT PROT 5.7 g/dl (6.4-8.2)
[2021-03-26] MEDS: ONDANSETRON *ODT* 4 MG TABLET SL PRN ×2 (12:15→22:14)
[2021-03-26] MEDS: RIVAROXABAN 20 MG TABLET PO SCH (17:50)
[2021-03-26] MEDS ORDERED: ACETAMINOPHEN 1000 MG/100 ML BAG IVPB PRN (17:59)
[2021-03-26] MEDS: MELATONIN 5 MG TABLETS PO SCH (22:05)
[2021-03-26] MEDS: ATORVASTATIN CA 40 MG TABLET (FP) PO SCH (22:05)
[2021-03-26] MEDS: ZOLPIDEM TARTRATE 5 MG TABLET PO PRN (22:09)
[2021-03-27] MEDS: ERYTHROMYCIN INJECTION - 250 MG in SODIUM CHLORIDE 100 ML IVPB SCH ×4 (02:04→18:14)
[2021-03-27] MEDS ORDERED: ONDANSETRON 4 MG/2 ML VIAL IVPUSH ONE (04:42)
[2021-03-27] MEDS: LIPASE/PROTEASE/AMYLASE 36,000 UNIT CAPSULE PO SCH ×3 (09:21→17:43)
[2021-03-27] MEDS: SUCRALFATE 1 GM TABLET (FP) PO SCH (09:22)
[2021-03-27] MEDS: FLUTICASONE/UMECLIDIN/VILANTER(200-62.5-25 TRELEGY ELLIPTA) INAHLER IH SCH (09:23)
[2021-03-27] MEDS: FAMOTIDINE 20 MG TABLET PO SCH ×2 (09:23→21:58)
[2021-03-27] MEDS: ONDANSETRON 4 MG/2 ML VIAL IVPB SCH ×4 (11:03→20:25)
[2021-03-27 11:11] LABS: BASO % 0.8 % (0-2.0); EOS % 2.4 % (0-4.5); HEMATOCRIT 35.9 % (35.4-49); HEMOGLOBIN 11.4 GM/dL (11.7-16.9); LYMPH % 20.3 % (8-40); MCH 27.1 pg (25.7-33.7); MCHC 31.9 g/dl (32.0-35.9); MEAN CELL VOLUME 84.9 fl (80-96); MEAN PLT VOLUME 7.4 fl (7.5-11.1); MONO % 10.8 % (3.8-10.2); NEUT % 65.7 % (42.8-82.8); PLATELET COUNT 250 10^3/uL (134-434); RBC 4.22 M/mm3 (4.00-5.60); RDW 16.9 % (11.9-15.9)
[2021-03-27 11:47] LABS: ALBUMIN 3.1 g/dl (3.4-5.0); CALCIUM 8.7 mg/dL (8.5-10.1)
[2021-03-27 11:48] LABS: BLOOD UREA NITROGEN 11.8 mg/dL (7-18)
[2021-03-27 11:50] LABS: MAGNESIUM 2.2 mg/dL (1.8-2.4); PHOSPHOROUS 2.8 mg/dL (2.5-4.9)
[2021-03-27 11:51] LABS: CREATININE 1.2 mg/dL (0.55-1.3)
[2021-03-27 11:52] LABS: BILIRUBIN,TOTAL 0.8 mg/dL (0.2-1); TOT PROT 5.5 g/dl (6.4-8.2)
[2021-03-27] MEDS: metoPROLOL SUCCINATE 25 MG TAB.SR.24H (FP) PO SCH (12:44)
[2021-03-27] MEDS: SUCRALFATE 1 GM/10 ML UNIT DOSE CUPS PO SCH ×2 (17:01→21:59)
[2021-03-27] MEDS: RIVAROXABAN 20 MG TABLET PO SCH (17:43)
[2021-03-27] MEDS: ZOLPIDEM TARTRATE 5 MG TABLET PO PRN (21:58)
[2021-03-27] MEDS: MELATONIN 5 MG TABLETS PO SCH (21:58)
[2021-03-27] MEDS: ATORVASTATIN CA 40 MG TABLET (FP) PO SCH (21:59)
[2021-03-28] MEDS: ERYTHROMYCIN INJECTION - 250 MG in SODIUM CHLORIDE 100 ML IVPB SCH ×3 (01:32→17:57)
[2021-03-28] MEDS: ONDANSETRON 4 MG/2 ML VIAL IVPB SCH ×4 (02:53→17:57)
[2021-03-28] MEDS: SUCRALFATE 1 GM/10 ML UNIT DOSE CUPS PO SCH ×4 (03:28→21:51)
[2021-03-28] MEDS: LIPASE/PROTEASE/AMYLASE 36,000 UNIT CAPSULE PO SCH ×3 (08:32→17:55)
[2021-03-28 09:30] LABS: BASO % 0.9 % (0-2.0); HEMATOCRIT 33.2 % (35.4-49); HEMOGLOBIN 10.5 GM/dL (11.7-16.9); LYMPH % 14.9 % (8-40); MCH 26.6 pg (25.7-33.7); MCHC 31.5 g/dl (32.0-35.9); MEAN CELL VOLUME 84.5 fl (80-96); MEAN PLT VOLUME 7.7 fl (7.5-11.1); MONO % 12.8 % (3.8-10.2); NEUT % 68.4 % (42.8-82.8); PLATELET COUNT 242 10^3/uL (134-434); RBC 3.94 M/mm3 (4.00-5.60); RDW 16.7 % (11.9-15.9); WHITE BLOOD COUNT 7.2 K/mm3 (4.0-10.0)
[2021-03-28 09:50] LABS: CALCIUM 8.7 mg/dL (8.5-10.1)
[2021-03-28 09:51] LABS: BLOOD UREA NITROGEN 10.9 mg/dL (7-18)
[2021-03-28 09:54] LABS: CREATININE 0.9 mg/dL (0.55-1.3); PHOSPHOROUS 2.8 mg/dL (2.5-4.9)
[2021-03-28] MEDS: FAMOTIDINE 20 MG TABLET PO SCH ×2 (10:29→21:52)
[2021-03-28] MEDS: FLUTICASONE/UMECLIDIN/VILANTER(200-62.5-25 TRELEGY ELLIPTA) INAHLER IH SCH (10:31)
[2021-03-28] MEDS: SIMETHICONE 40 MG/0.6 ML BOTTLE PO PRN ×2 (11:45→16:54)
[2021-03-28] MEDS: ACETAMINOPHEN 1000 MG/100 ML BAG IVPB PRN (13:09)
[2021-03-28] MEDS: RIVAROXABAN 20 MG TABLET PO SCH (17:57)
[2021-03-28] MEDS ORDERED: MAGNESIUM CITRATE 300 ML BOTTLE PO ONE (18:54)
[2021-03-28] MEDS: ONDANSETRON 8 MG TABLET (FP) PO SCH (20:47)
[2021-03-28] MEDS: SIMETHICONE 80 MG TAB.CHEW (FP) PO SCH (21:52)
[2021-03-28] MEDS: MELATONIN 5 MG TABLETS PO SCH (21:52)
[2021-03-28] MEDS: ATORVASTATIN CA 40 MG TABLET (FP) PO SCH (21:52)
[2021-03-28] MEDS: RIFAXIMIN 550 MG TABLET PO SCH (21:52)
[2021-03-28] MEDS ORDERED: BETAMETHASONE DIPR 0.05% CREAM 15 GM TUBE TP PRN (22:00)
[2021-03-29] MEDS: ACETAMINOPHEN 1000 MG/100 ML BAG IVPB PRN ×4 (00:41→20:00)
[2021-03-29] MEDS ORDERED: ONDANSETRON 4 MG TABLET PO ONE (02:08)
[2021-03-29] MEDS: ONDANSETRON 8 MG TABLET (FP) PO SCH ×2 (02:14→12:36)
[2021-03-29] MEDS: SUCRALFATE 1 GM/10 ML UNIT DOSE CUPS PO SCH ×4 (04:41→20:58)
[2021-03-29] MEDS: RIFAXIMIN 550 MG TABLET PO SCH ×3 (05:28→21:00)
[2021-03-29] MEDS: LIPASE/PROTEASE/AMYLASE 36,000 UNIT CAPSULE PO SCH ×3 (08:26→18:40)
[2021-03-29 09:08] LABS: HEMATOCRIT 31.9 % (35.4-49); HEMOGLOBIN 10.4 GM/dL (11.7-16.9); LYMPH % 20.7 % (8-40); MCH 27.5 pg (25.7-33.7); MCHC 32.6 g/dl (32.0-35.9); MEAN CELL VOLUME 84.2 fl (80-96); MEAN PLT VOLUME 7.6 fl (7.5-11.1); MONO % 11.9 % (3.8-10.2); NEUT % 63.4 % (42.8-82.8); PLATELET COUNT 251 10^3/uL (134-434); RBC 3.79 M/mm3 (4.00-5.60); RDW 16.9 % (11.9-15.9); WHITE BLOOD COUNT 7.9 K/mm3 (4.0-10.0)
[2021-03-29] MEDS: FAMOTIDINE 20 MG TABLET PO SCH ×2 (09:39→20:59)
[2021-03-29] MEDS: SIMETHICONE 80 MG TAB.CHEW (FP) PO SCH ×4 (09:39→22:07)
[2021-03-29] MEDS: FLUTICASONE/UMECLIDIN/VILANTER(200-62.5-25 TRELEGY ELLIPTA) INAHLER IH SCH (09:40)
[2021-03-29] MEDS: metoPROLOL SUCCINATE 25 MG TAB.SR.24H (FP) PO SCH (09:45)
[2021-03-29 11:25] LABS: CALCIUM 8.6 mg/dL (8.5-10.1)
[2021-03-29 11:26] LABS: BLOOD UREA NITROGEN 8.3 mg/dL (7-18); MAGNESIUM 2.2 mg/dL (1.8-2.4)
[2021-03-29 11:29] LABS: PHOSPHOROUS 3.2 mg/dL (2.5-4.9)
[2021-03-29] MEDS: DEXTROSE 5%-NORMAL SALINE 1,000 ML IV SCH (11:42)
[2021-03-29 13:19] LABS: HEMATOCRIT 29.2 % (35.4-49); HEMOGLOBIN 9.5 GM/dL (11.7-16.9); MCH 27.3 pg (25.7-33.7); MCHC 32.4 g/dl (32.0-35.9); MEAN CELL VOLUME 84.3 fl (80-96); MEAN PLT VOLUME 7.4 fl (7.5-11.1); PLATELET COUNT 233 10^3/uL (134-434); RBC 3.46 M/mm3 (4.00-5.60); RDW 16.8 % (11.9-15.9); WHITE BLOOD COUNT 7.4 K/mm3 (4.0-10.0)
[2021-03-29] MEDS: ONDANSETRON 4 MG/2 ML VIAL IVPUSH PRN ×2 (14:16→22:07)
[2021-03-29] MEDS ORDERED: BETAMETHASONE DIPR 0.05% CREAM 15 GM TUBE TP PRN (17:28)
[2021-03-29 17:55] LABS: HEMATOCRIT 28.3 % (35.4-49); HEMOGLOBIN 9.2 GM/dL (11.7-16.9); MCHC 32.3 g/dl (32.0-35.9); MEAN CELL VOLUME 83.8 fl (80-96); MEAN PLT VOLUME 7.3 fl (7.5-11.1); PLATELET COUNT 232 10^3/uL (134-434); RBC 3.38 M/mm3 (4.00-5.60); RDW 16.9 % (11.9-15.9); WHITE BLOOD COUNT 6.8 K/mm3 (4.0-10.0)
[2021-03-29] MEDS: MELATONIN 5 MG TABLETS PO SCH (20:59)
[2021-03-29] MEDS: ATORVASTATIN CA 40 MG TABLET (FP) PO SCH (22:07)
[2021-03-30] MEDS ORDERED: ONDANSETRON 4 MG/2 ML VIAL IVPUSH ONE (00:13)
[2021-03-30] MEDS: ACETAMINOPHEN 1000 MG/100 ML BAG IVPB PRN (03:01)
[2021-03-30] MEDS: SUCRALFATE 1 GM/10 ML UNIT DOSE CUPS PO SCH ×4 (03:54→21:16)
[2021-03-30 04:07] LABS: HEMATOCRIT 30.4 % (35.4-49); MCH 27.4 pg (25.7-33.7); MCHC 32.8 g/dl (32.0-35.9); MEAN CELL VOLUME 83.6 fl (80-96); MEAN PLT VOLUME 7.3 fl (7.5-11.1); PLATELET COUNT 216 10^3/uL (134-434); RBC 3.64 M/mm3 (4.00-5.60); RDW 16.6 % (11.9-15.9); WHITE BLOOD COUNT 6.1 K/mm3 (4.0-10.0)
[2021-03-30 05:24] LABS: CALCIUM 8.9 mg/dL (8.5-10.1)
[2021-03-30 05:25] LABS: MAGNESIUM 2.1 mg/dL (1.8-2.4)
[2021-03-30 05:28] LABS: CREATININE 0.9 mg/dL (0.55-1.3)
[2021-03-30] MEDS: RIFAXIMIN 550 MG TABLET PO SCH ×3 (06:25→21:16)
[2021-03-30] MEDS ORDERED: SODIUM PHOSPHATE/NA BIPHOS 133 ML ENEMA PR ONE (06:30)
[2021-03-30] MEDS ORDERED: ALBUTEROL SO4 2.5/IPRATROPIUM 0.5 INH SOL 3 ML VIAL.NEB. NEB PRN (09:14)
[2021-03-30] MEDS: SIMETHICONE 80 MG TAB.CHEW (FP) PO SCH ×4 (10:14→21:17)
[2021-03-30] MEDS: LIPASE/PROTEASE/AMYLASE 36,000 UNIT CAPSULE PO SCH ×3 (10:14→17:52)
[2021-03-30] MEDS: SERTRALINE HCL 25 MG TABLET (FP) PO SCH (10:14)
[2021-03-30] MEDS: FAMOTIDINE 20 MG TABLET PO SCH ×2 (10:14→21:16)
[2021-03-30] MEDS: DICYCLOMINE HCL 10 MG CAPSULE PO SCH ×2 (10:23→21:17)
[2021-03-30] MEDS: ONDANSETRON 4 MG/2 ML VIAL IVPUSH PRN ×2 (11:34→18:29)
[2021-03-30] MEDS: FLUTICASONE/UMECLIDIN/VILANTER(200-62.5-25 TRELEGY ELLIPTA) INAHLER IH SCH (12:20)
[2021-03-30] MEDS: metoPROLOL SUCCINATE 25 MG TAB.SR.24H (FP) PO SCH (12:21)
[2021-03-30] MEDS: DEXTROSE 5%-NORMAL SALINE 1,000 ML IV SCH ×2 (12:24→23:22)
[2021-03-30] MEDS: RIVAROXABAN 20 MG TABLET PO SCH (17:52)
[2021-03-30] MEDS ORDERED: ZOLPIDEM TARTRATE 5 MG TABLET PO ONE ×3 (18:07→22:00)
[2021-03-30] MEDS: ATORVASTATIN CA 40 MG TABLET (FP) PO SCH (21:15)
[2021-03-30] MEDS: MELATONIN 5 MG TABLETS PO SCH (21:15)
[2021-03-30] MEDS: HYDROCORTISONE ACETATE 25 MG/SUPP.RECT RC SCH (21:17)
[2021-03-31] MEDS: SUCRALFATE 1 GM/10 ML UNIT DOSE CUPS PO SCH (06:10)
[2021-03-31] MEDS: ONDANSETRON 4 MG/2 ML VIAL IVPUSH PRN (06:10)
[2021-03-31] MEDS: RIFAXIMIN 550 MG TABLET PO SCH ×3 (06:10→21:11)
[2021-03-31 08:07] LABS: EOS % 3.7 % (0-4.5); HEMATOCRIT 27.6 % (35.4-49); HEMOGLOBIN 8.8 GM/dL (11.7-16.9); LYMPH % 16.4 % (8-40); MCHC 31.8 g/dl (32.0-35.9); MEAN CELL VOLUME 84.9 fl (80-96); MEAN PLT VOLUME 7.9 fl (7.5-11.1); MONO % 12.5 % (3.8-10.2); NEUT % 66.4 % (42.8-82.8); PLATELET COUNT 208 10^3/uL (134-434); RBC 3.25 M/mm3 (4.00-5.60); RDW 16.4 % (11.9-15.9); WHITE BLOOD COUNT 6.1 K/mm3 (4.0-10.0)
[2021-03-31 08:19] LABS: CALCIUM 8.5 mg/dL (8.5-10.1)
[2021-03-31 08:20] LABS: BLOOD UREA NITROGEN 5.1 mg/dL (7-18)
[2021-03-31 08:23] LABS: CREATININE 0.9 mg/dL (0.55-1.3); PHOSPHOROUS 2.7 mg/dL (2.5-4.9)
[2021-03-31] MEDS: LIPASE/PROTEASE/AMYLASE 36,000 UNIT CAPSULE PO SCH ×3 (08:35→17:26)
[2021-03-31] MEDS: SIMETHICONE 80 MG TAB.CHEW (FP) PO SCH ×4 (09:38→21:08)
[2021-03-31] MEDS: metoPROLOL SUCCINATE 25 MG TAB.SR.24H (FP) PO SCH (09:38)
[2021-03-31] MEDS: SERTRALINE HCL 25 MG TABLET (FP) PO SCH (09:38)
[2021-03-31] MEDS: FAMOTIDINE 20 MG TABLET PO SCH (09:39)
[2021-03-31] MEDS: FLUTICASONE/UMECLIDIN/VILANTER(200-62.5-25 TRELEGY ELLIPTA) INAHLER IH SCH (09:39)
[2021-03-31] MEDS: DEXTROSE 5%-NORMAL SALINE 1,000 ML IV SCH (10:15)
[2021-03-31] MEDS: ZINC OXIDE 20% TOPICAL OINTMENT 30 GM TUBE TP SCH ×2 (14:43→21:11)
[2021-03-31] MEDS: RIVAROXABAN 20 MG TABLET PO SCH (17:26)
[2021-03-31 19:18] LABS: BASO % 0.8 % (0-2.0); EOS % 2.8 % (0-4.5); HEMATOCRIT 27.8 % (35.4-49); HEMOGLOBIN 8.9 GM/dL (11.7-16.9); LYMPH % 13.7 % (8-40); MCHC 31.8 g/dl (32.0-35.9); MEAN CELL VOLUME 84.9 fl (80-96); MEAN PLT VOLUME 7.2 fl (7.5-11.1); MONO % 12.2 % (3.8-10.2); NEUT % 70.5 % (42.8-82.8); PLATELET COUNT 202 10^3/uL (134-434); RBC 3.28 M/mm3 (4.00-5.60); WHITE BLOOD COUNT 6.3 K/mm3 (4.0-10.0)
[2021-03-31] MEDS: MELATONIN 5 MG TABLETS PO SCH (21:06)
[2021-03-31] MEDS: ATORVASTATIN CA 40 MG TABLET (FP) PO SCH (21:07)
[2021-03-31] MEDS: HYDROCORTISONE ACETATE 25 MG/SUPP.RECT RC SCH (21:12)
[2021-04-01] MEDS: ZOLPIDEM TARTRATE 5 MG TABLET PO PRN ×2 (01:16→21:42)
[2021-04-01 02:29] LABS: HEMATOCRIT 26.5 % (35.4-49); HEMOGLOBIN 8.5 GM/dL (11.7-16.9); MCH 27.3 pg (25.7-33.7); MCHC 32.2 g/dl (32.0-35.9); MEAN CELL VOLUME 84.9 fl (80-96); MEAN PLT VOLUME 7.3 fl (7.5-11.1); PLATELET COUNT 193 10^3/uL (134-434); RBC 3.12 M/mm3 (4.00-5.60); RDW 16.8 % (11.9-15.9); WHITE BLOOD COUNT 7.1 K/mm3 (4.0-10.0)
[2021-04-01] MEDS: RIFAXIMIN 550 MG TABLET PO SCH ×3 (06:01→21:38)
[2021-04-01 08:26] LABS: BASO % 0.7 % (0-2.0); EOS % 3.1 % (0-4.5); HEMOGLOBIN 8.4 GM/dL (11.7-16.9); LYMPH % 16.8 % (8-40); MCH 27.4 pg (25.7-33.7); MCHC 32.3 g/dl (32.0-35.9); MEAN CELL VOLUME 84.8 fl (80-96); NEUT % 66.4 % (42.8-82.8); PLATELET COUNT 198 10^3/uL (134-434); RBC 3.07 M/mm3 (4.00-5.60); WHITE BLOOD COUNT 6.5 K/mm3 (4.0-10.0)
[2021-04-01 08:35] LABS: CALCIUM 7.9 mg/dL (8.5-10.1)
[2021-04-01 08:36] LABS: BLOOD UREA NITROGEN 8.2 mg/dL (7-18); MAGNESIUM 1.8 mg/dL (1.8-2.4)
[2021-04-01 08:39] LABS: CREATININE 0.8 mg/dL (0.55-1.3)
[2021-04-01] MEDS: LIPASE/PROTEASE/AMYLASE 36,000 UNIT CAPSULE PO SCH ×3 (09:31→17:50)
[2021-04-01] MEDS: SERTRALINE HCL 25 MG TABLET (FP) PO SCH (09:32)
[2021-04-01] MEDS: metoPROLOL SUCCINATE 25 MG TAB.SR.24H (FP) PO SCH (09:32)
[2021-04-01] MEDS: FAMOTIDINE 20 MG TABLET PO SCH (09:32)
[2021-04-01] MEDS: SIMETHICONE 80 MG TAB.CHEW (FP) PO SCH ×4 (09:32→21:37)
[2021-04-01] MEDS: FLUTICASONE/UMECLIDIN/VILANTER(200-62.5-25 TRELEGY ELLIPTA) INAHLER IH SCH (09:33)
[2021-04-01] MEDS: DEXTROSE 5%-NORMAL SALINE 1,000 ML IV SCH (09:33)
[2021-04-01] MEDS: ZINC OXIDE 20% TOPICAL OINTMENT 30 GM TUBE TP SCH ×2 (09:33→21:38)
[2021-04-01] MEDS: CALCIUM CARBONATE 650 MG TABLET PO SCH ×2 (12:39→21:38)
[2021-04-01 19:42] LABS: BASO % 1.2 % (0-2.0); HEMOGLOBIN 9.3 GM/dL (11.7-16.9); LYMPH % 18.5 % (8-40); MCH 27.2 pg (25.7-33.7); MCHC 31.9 g/dl (32.0-35.9); MEAN PLT VOLUME 8.6 fl (7.5-11.1); MONO % 14.4 % (3.8-10.2); NEUT % 61.9 % (42.8-82.8); PLATELET COUNT 226 10^3/uL (134-434); RBC 3.41 M/mm3 (4.00-5.60); RDW 17.1 % (11.9-15.9); WHITE BLOOD COUNT 6.6 K/mm3 (4.0-10.0)
[2021-04-01] MEDS: ATORVASTATIN CA 40 MG TABLET (FP) PO SCH (21:37)
[2021-04-01] MEDS: MELATONIN 5 MG TABLETS PO SCH (21:38)
[2021-04-01] MEDS: HYDROCORTISONE ACETATE 25 MG/SUPP.RECT RC SCH (21:39)
[2021-04-02] MEDS: RIFAXIMIN 550 MG TABLET PO SCH ×3 (05:32→21:37)
[2021-04-02] MEDS: ONDANSETRON 4 MG/2 ML VIAL IVPUSH PRN (05:40)
[2021-04-02] MEDS: HYDROCORTISONE ACETATE 25 MG/SUPP.RECT RC SCH ×2 (08:06→22:14)
[2021-04-02 08:07] LABS: BASO % 1.1 % (0-2.0); HEMATOCRIT 25.6 % (35.4-49); HEMOGLOBIN 8.3 GM/dL (11.7-16.9); MCH 27.5 pg (25.7-33.7); MCHC 32.4 g/dl (32.0-35.9); MEAN CELL VOLUME 84.6 fl (80-96); MEAN PLT VOLUME 7.6 fl (7.5-11.1); MONO % 14.7 % (3.8-10.2); NEUT % 63.2 % (42.8-82.8); PLATELET COUNT 199 10^3/uL (134-434); RBC 3.02 M/mm3 (4.00-5.60); RDW 16.8 % (11.9-15.9); WHITE BLOOD COUNT 6.1 K/mm3 (4.0-10.0)
[2021-04-02 08:21] LABS: CALCIUM 8.3 mg/dL (8.5-10.1)
[2021-04-02 08:22] LABS: BLOOD UREA NITROGEN 6.2 mg/dL (7-18)
[2021-04-02 08:25] LABS: CREATININE 0.7 mg/dL (0.55-1.3)
[2021-04-02 08:26] LABS: PHOSPHOROUS 3.2 mg/dL (2.5-4.9)
[2021-04-02] MEDS: LIPASE/PROTEASE/AMYLASE 36,000 UNIT CAPSULE PO SCH ×3 (10:06→18:28)
[2021-04-02] MEDS: SIMETHICONE 80 MG TAB.CHEW (FP) PO SCH ×4 (10:07→21:37)
[2021-04-02] MEDS: CALCIUM CARBONATE 650 MG TABLET PO SCH ×2 (10:08→21:37)
[2021-04-02] MEDS: metoPROLOL SUCCINATE 25 MG TAB.SR.24H (FP) PO SCH (10:08)
[2021-04-02] MEDS: FAMOTIDINE 20 MG TABLET PO SCH ×2 (10:08→21:37)
[2021-04-02] MEDS: SERTRALINE HCL 50 MG TABLET (FP) PO SCH (10:08)
[2021-04-02] MEDS: ONDANSETRON 8 MG TABLET (FP) PO SCH ×2 (10:09→16:11)
[2021-04-02] MEDS: FLUTICASONE/UMECLIDIN/VILANTER(200-62.5-25 TRELEGY ELLIPTA) INAHLER IH SCH (10:10)
[2021-04-02] MEDS: ZINC OXIDE 20% TOPICAL OINTMENT 30 GM TUBE TP SCH ×2 (10:11→21:37)
[2021-04-02] MEDS: DEXTROSE 5%-NORMAL SALINE 1,000 ML IV SCH ×2 (10:11→14:15)
[2021-04-02] MEDS ORDERED: HYDROCORTISONE 0.5% TOPICAL CREAM 30 GM TUBE TP PRN (16:49)
[2021-04-02 20:21] LABS: HEMATOCRIT 29.4 % (35.4-49); HEMOGLOBIN 9.6 GM/dL (11.7-16.9); MCHC 32.8 g/dl (32.0-35.9); MEAN CELL VOLUME 85.1 fl (80-96); MEAN PLT VOLUME 7.9 fl (7.5-11.1); PLATELET COUNT 225 10^3/uL (134-434); RBC 3.45 M/mm3 (4.00-5.60); WHITE BLOOD COUNT 6.9 K/mm3 (4.0-10.0)
[2021-04-02] MEDS ORDERED: ONDANSETRON 4 MG/2 ML VIAL IVPUSH ONE (20:25)
[2021-04-02] MEDS: ATORVASTATIN CA 40 MG TABLET (FP) PO SCH (21:37)
[2021-04-02] MEDS: MELATONIN 5 MG TABLETS PO SCH (21:37)
[2021-04-03] MEDS: ONDANSETRON 8 MG TABLET (FP) PO SCH ×3 (02:09→19:02)
[2021-04-03] MEDS: RIFAXIMIN 550 MG TABLET PO SCH ×3 (06:26→21:19)
[2021-04-03 08:00] LABS: BASO % 0.9 % (0-2.0); EOS % 4.5 % (0-4.5); HEMATOCRIT 26.2 % (35.4-49); HEMOGLOBIN 8.5 GM/dL (11.7-16.9); LYMPH % 16.3 % (8-40); MCH 27.6 pg (25.7-33.7); MCHC 32.5 g/dl (32.0-35.9); MEAN PLT VOLUME 7.9 fl (7.5-11.1); MONO % 14.5 % (3.8-10.2); NEUT % 63.8 % (42.8-82.8); PLATELET COUNT 216 10^3/uL (134-434); RBC 3.09 M/mm3 (4.00-5.60); RDW 16.6 % (11.9-15.9)
[2021-04-03 08:02] LABS: CALCIUM 8.1 mg/dL (8.5-10.1)
[2021-04-03 08:03] LABS: BLOOD UREA NITROGEN 5.4 mg/dL (7-18); MAGNESIUM 2.1 mg/dL (1.8-2.4)
[2021-04-03 08:06] LABS: CREATININE 0.8 mg/dL (0.55-1.3); PHOSPHOROUS 3.4 mg/dL (2.5-4.9)
[2021-04-03] MEDS: HYDROCORTISONE ACETATE 25 MG/SUPP.RECT RC SCH ×2 (10:23→21:17)
[2021-04-03] MEDS: SIMETHICONE 80 MG TAB.CHEW (FP) PO SCH ×4 (10:23→21:13)
[2021-04-03] MEDS: CALCIUM CARBONATE 650 MG TABLET PO SCH ×2 (10:23→21:17)
[2021-04-03] MEDS: SERTRALINE HCL 50 MG TABLET (FP) PO SCH (10:24)
[2021-04-03] MEDS: metoPROLOL SUCCINATE 25 MG TAB.SR.24H (FP) PO SCH (10:24)
[2021-04-03] MEDS: LIPASE/PROTEASE/AMYLASE 36,000 UNIT CAPSULE PO SCH ×3 (10:25→17:21)
[2021-04-03] MEDS: FLUTICASONE/UMECLIDIN/VILANTER(200-62.5-25 TRELEGY ELLIPTA) INAHLER IH SCH (10:32)
[2021-04-03] MEDS: ZINC OXIDE 20% TOPICAL OINTMENT 30 GM TUBE TP SCH ×2 (10:33→21:19)
[2021-04-03] MEDS: FAMOTIDINE 20 MG TABLET PO SCH ×2 (11:52→21:18)
[2021-04-03] MEDS: PROCHLORPERAZINE MALEATE 5 MG TABLET PO SCH ×3 (11:55→22:43)
[2021-04-03] MEDS ORDERED: PROCHLORPERAZINE MALEATE 5 MG TABLET PO SCH (12:00)
[2021-04-03] MEDS ORDERED: CEFTRIAXONE 1 GM in DEXTROSE 5%-WATER - 50 ML IVPB SCH (20:30)
[2021-04-03] MEDS: DEXTROSE 5%-NORMAL SALINE 1,000 ML IV SCH (21:12)
[2021-04-03] MEDS: MELATONIN 5 MG TABLETS PO SCH (21:16)
[2021-04-03] MEDS: ZOLPIDEM TARTRATE 5 MG TABLET PO PRN (21:16)
[2021-04-03] MEDS: ATORVASTATIN CA 40 MG TABLET (FP) PO SCH (21:20)
[2021-04-03] MEDS ORDERED: DEXTROSE 5%-WATER - 50 ML IVPB ONE (22:38)
[2021-04-03] MEDS ORDERED: cefTRIAXone SODIUM 1 GM VIAL ONE (22:38)
[2021-04-04] MEDS: ONDANSETRON 8 MG TABLET (FP) PO SCH ×5 (00:42→23:20)
[2021-04-04] MEDS: PROCHLORPERAZINE MALEATE 5 MG TABLET PO SCH ×4 (05:59→22:21)
[2021-04-04] MEDS: RIFAXIMIN 550 MG TABLET PO SCH (05:59)
[2021-04-04 07:48] LABS: BASO % 1.3 % (0-2.0); EOS % 4.6 % (0-4.5); HEMATOCRIT 26.3 % (35.4-49); HEMOGLOBIN 8.6 GM/dL (11.7-16.9); LYMPH % 18.8 % (8-40); MCH 27.8 pg (25.7-33.7); MCHC 32.8 g/dl (32.0-35.9); MEAN CELL VOLUME 84.9 fl (80-96); MEAN PLT VOLUME 7.8 fl (7.5-11.1); MONO % 16.2 % (3.8-10.2); NEUT % 59.1 % (42.8-82.8); PLATELET COUNT 226 10^3/uL (134-434); RBC 3.09 M/mm3 (4.00-5.60); RDW 16.7 % (11.9-15.9); WHITE BLOOD COUNT 5.7 K/mm3 (4.0-10.0)
[2021-04-04 08:20] LABS: CALCIUM 8.2 mg/dL (8.5-10.1)
[2021-04-04 08:21] LABS: MAGNESIUM 1.9 mg/dL (1.8-2.4)
[2021-04-04 08:23] LABS: BLOOD UREA NITROGEN 5.2 mg/dL (7-18)
[2021-04-04 08:25] LABS: CREATININE 0.8 mg/dL (0.55-1.3)
[2021-04-04] MEDS: LIPASE/PROTEASE/AMYLASE 36,000 UNIT CAPSULE PO SCH ×3 (09:04→19:37)
[2021-04-04] MEDS ORDERED: cefTRIAXone SODIUM 1 GM VIAL ONE (10:49)
[2021-04-04] MEDS ORDERED: DEXTROSE 5%-WATER - 50 ML IVPB ONE (10:49)
[2021-04-04] MEDS: FAMOTIDINE 20 MG TABLET PO SCH ×2 (10:56→22:16)
[2021-04-04] MEDS: SIMETHICONE 80 MG TAB.CHEW (FP) PO SCH ×4 (10:56→22:17)
[2021-04-04] MEDS: CEFTRIAXONE 1 GM in DEXTROSE 5%-WATER - 50 ML IVPB SCH (10:57)
[2021-04-04] MEDS: metoPROLOL SUCCINATE 25 MG TAB.SR.24H (FP) PO SCH (10:57)
[2021-04-04] MEDS: FLUTICASONE/UMECLIDIN/VILANTER(200-62.5-25 TRELEGY ELLIPTA) INAHLER IH SCH (10:58)
[2021-04-04] MEDS: ZINC OXIDE 20% TOPICAL OINTMENT 30 GM TUBE TP SCH ×2 (10:58→22:32)
[2021-04-04] MEDS: SERTRALINE HCL 50 MG TABLET (FP) PO SCH (10:59)
[2021-04-04] MEDS: DEXTROSE 5%-NORMAL SALINE 1,000 ML IV SCH (10:59)
[2021-04-04] MEDS: HYDROCORTISONE ACETATE 25 MG/SUPP.RECT RC SCH ×2 (11:20→22:17)
[2021-04-04] MEDS: CALCIUM CARBONATE 650 MG TABLET PO SCH ×2 (13:25→22:17)
[2021-04-04] MEDS: MELATONIN 5 MG TABLETS PO SCH (22:16)
[2021-04-04] MEDS: ZOLPIDEM TARTRATE 5 MG TABLET PO PRN (22:16)
[2021-04-04] MEDS: ATORVASTATIN CA 40 MG TABLET (FP) PO SCH (22:16)
[2021-04-05] MEDS: DEXTROSE 5%-NORMAL SALINE 1,000 ML IV SCH ×2 (01:30→10:26)
[2021-04-05] MEDS: ONDANSETRON 8 MG TABLET (FP) PO SCH ×4 (06:05→23:02)
[2021-04-05] MEDS: PROCHLORPERAZINE MALEATE 5 MG TABLET PO SCH ×4 (06:05→23:01)
[2021-04-05] MEDS: LIPASE/PROTEASE/AMYLASE 36,000 UNIT CAPSULE PO SCH ×3 (07:54→17:01)
[2021-04-05 08:15] LABS: BASO % 1.1 % (0-2.0); EOS % 4.1 % (0-4.5); HEMATOCRIT 26.2 % (35.4-49); HEMOGLOBIN 8.5 GM/dL (11.7-16.9); LYMPH % 16.1 % (8-40); MCH 27.5 pg (25.7-33.7); MCHC 32.4 g/dl (32.0-35.9); MEAN CELL VOLUME 84.9 fl (80-96); MEAN PLT VOLUME 7.5 fl (7.5-11.1); MONO % 16.5 % (3.8-10.2); NEUT % 62.2 % (42.8-82.8); PLATELET COUNT 247 10^3/uL (134-434); RBC 3.09 M/mm3 (4.00-5.60); RDW 17.1 % (11.9-15.9); WHITE BLOOD COUNT 5.9 K/mm3 (4.0-10.0)
[2021-04-05 08:35] LABS: CALCIUM 8.8 mg/dL (8.5-10.1)
[2021-04-05 08:36] LABS: BLOOD UREA NITROGEN 5.3 mg/dL (7-18)
[2021-04-05 08:39] LABS: CREATININE 0.9 mg/dL (0.55-1.3); PHOSPHOROUS 3.1 mg/dL (2.5-4.9)
[2021-04-05] MEDS ORDERED: cefTRIAXone SODIUM 1 GM VIAL ONE (10:04)
[2021-04-05] MEDS ORDERED: DEXTROSE 5%-WATER - 50 ML IVPB ONE (10:05)
[2021-04-05] MEDS: SIMETHICONE 80 MG TAB.CHEW (FP) PO SCH ×4 (10:22→21:33)
[2021-04-05] MEDS: metoPROLOL SUCCINATE 25 MG TAB.SR.24H (FP) PO SCH (10:22)
[2021-04-05] MEDS: FAMOTIDINE 20 MG TABLET PO SCH ×2 (10:22→21:34)
[2021-04-05] MEDS: CEFTRIAXONE 1 GM in DEXTROSE 5%-WATER - 50 ML IVPB SCH (10:23)
[2021-04-05] MEDS: CALCIUM CARBONATE 650 MG TABLET PO SCH ×2 (10:24→21:35)
[2021-04-05] MEDS: POLYETHYLENE GLYCOL (HEALTHYLAX) 3350 17 GM PACKET PO SCH ×2 (10:24→21:33)
[2021-04-05] MEDS: HYDROCORTISONE ACETATE 25 MG/SUPP.RECT RC SCH ×2 (10:24→21:35)
[2021-04-05] MEDS: ZINC OXIDE 20% TOPICAL OINTMENT 30 GM TUBE TP SCH ×2 (10:25→21:34)
[2021-04-05] MEDS: SERTRALINE HCL 50 MG TABLET (FP) PO SCH (10:25)
[2021-04-05] MEDS: FLUTICASONE/UMECLIDIN/VILANTER(200-62.5-25 TRELEGY ELLIPTA) INAHLER IH SCH (10:25)
[2021-04-05] MEDS ORDERED: ONDANSETRON 4 MG/2 ML VIAL IVPUSH ONE (16:12)
[2021-04-05] MEDS ORDERED: ACETAMINOPHEN 325 MG TABLET (FP) PO ONE ×2 (19:35→20:11)
[2021-04-05] MEDS: ATORVASTATIN CA 40 MG TABLET (FP) PO SCH (21:33)
[2021-04-05] MEDS: ZOLPIDEM TARTRATE 5 MG TABLET PO PRN (21:34)
[2021-04-05] MEDS: MELATONIN 5 MG TABLETS PO SCH (21:34)
[2021-04-06] MEDS: DEXTROSE 5%-NORMAL SALINE 1,000 ML IV SCH ×2 (00:40→14:57)
[2021-04-06] MEDS: PROCHLORPERAZINE MALEATE 5 MG TABLET PO SCH ×4 (05:29→20:03)
[2021-04-06] MEDS: ONDANSETRON 8 MG TABLET (FP) PO SCH ×3 (05:29→17:23)
[2021-04-06] MEDS: LIPASE/PROTEASE/AMYLASE 36,000 UNIT CAPSULE PO SCH ×3 (08:59→18:17)
[2021-04-06 09:14] LABS: EOS % 2.8 % (0-4.5); HEMOGLOBIN 8.7 GM/dL (11.7-16.9); LYMPH % 16.1 % (8-40); MCH 27.5 pg (25.7-33.7); MCHC 32.4 g/dl (32.0-35.9); MEAN CELL VOLUME 84.9 fl (80-96); MEAN PLT VOLUME 7.6 fl (7.5-11.1); MONO % 13.3 % (3.8-10.2); NEUT % 66.8 % (42.8-82.8); PLATELET COUNT 271 10^3/uL (134-434); RBC 3.17 M/mm3 (4.00-5.60); RDW 16.7 % (11.9-15.9); WHITE BLOOD COUNT 6.7 K/mm3 (4.0-10.0)
[2021-04-06 09:56] LABS: BLOOD UREA NITROGEN 5.1 mg/dL (7-18); CALCIUM 8.3 mg/dL (8.5-10.1)
[2021-04-06 09:59] LABS: CREATININE 0.9 mg/dL (0.55-1.3)
[2021-04-06] MEDS: HYDROCORTISONE ACETATE 25 MG/SUPP.RECT RC SCH ×2 (09:59→21:20)
[2021-04-06] MEDS: CALCIUM CARBONATE 650 MG TABLET PO SCH ×2 (09:59→21:20)
[2021-04-06 10:00] LABS: PHOSPHOROUS 3.2 mg/dL (2.5-4.9)
[2021-04-06] MEDS ORDERED: DEXTROSE 5%-WATER - 50 ML IVPB ONE (10:02)
[2021-04-06] MEDS ORDERED: cefTRIAXone SODIUM 1 GM VIAL ONE (10:02)
[2021-04-06] MEDS: POLYETHYLENE GLYCOL (HEALTHYLAX) 3350 17 GM PACKET PO SCH ×2 (10:03→21:21)
[2021-04-06] MEDS: SERTRALINE HCL 50 MG TABLET (FP) PO SCH (10:04)
[2021-04-06] MEDS: CEFTRIAXONE 1 GM in DEXTROSE 5%-WATER - 50 ML IVPB SCH (10:04)
[2021-04-06] MEDS: SIMETHICONE 80 MG TAB.CHEW (FP) PO SCH ×4 (10:04→21:28)
[2021-04-06] MEDS: FAMOTIDINE 20 MG TABLET PO SCH ×2 (10:04→21:27)
[2021-04-06] MEDS: metoPROLOL SUCCINATE 25 MG TAB.SR.24H (FP) PO SCH (10:05)
[2021-04-06] MEDS: FLUTICASONE/UMECLIDIN/VILANTER(200-62.5-25 TRELEGY ELLIPTA) INAHLER IH SCH (10:06)
[2021-04-06] MEDS: ZINC OXIDE 20% TOPICAL OINTMENT 30 GM TUBE TP SCH ×2 (10:07→21:14)
[2021-04-06] MEDS: ATORVASTATIN CA 40 MG TABLET (FP) PO SCH (21:27)
[2021-04-06] MEDS: ZOLPIDEM TARTRATE 5 MG TABLET PO PRN (21:28)
[2021-04-06] MEDS: MELATONIN 5 MG TABLETS PO SCH (21:28)
[2021-04-07] MEDS: ONDANSETRON 8 MG TABLET (FP) PO SCH ×2 (00:10→05:44)
[2021-04-07] MEDS: PROCHLORPERAZINE MALEATE 5 MG TABLET PO SCH ×2 (02:32→08:24)
[2021-04-07] MEDS: LIPASE/PROTEASE/AMYLASE 36,000 UNIT CAPSULE PO SCH (08:25)
[2021-04-07 08:29] LABS: BASO % 1.1 % (0-2.0); EOS % 2.3 % (0-4.5); HEMATOCRIT 26.4 % (35.4-49); HEMOGLOBIN 8.7 GM/dL (11.7-16.9); LYMPH % 14.7 % (8-40); MCH 27.6 pg (25.7-33.7); MEAN CELL VOLUME 83.8 fl (80-96); MEAN PLT VOLUME 7.7 fl (7.5-11.1); MONO % 15.3 % (3.8-10.2); NEUT % 66.6 % (42.8-82.8); PLATELET COUNT 276 10^3/uL (134-434); RBC 3.15 M/mm3 (4.00-5.60); RDW 16.7 % (11.9-15.9); WHITE BLOOD COUNT 6.5 K/mm3 (4.0-10.0)
[2021-04-07 08:43] LABS: BLOOD UREA NITROGEN 3.7 mg/dL (7-18); CALCIUM 8.6 mg/dL (8.5-10.1); MAGNESIUM 1.9 mg/dL (1.8-2.4)
[2021-04-07 08:46] LABS: CREATININE 0.9 mg/dL (0.55-1.3)
[2021-04-07] MEDS ORDERED: cefTRIAXone SODIUM 1 GM VIAL ONE (08:59)
[2021-04-07] MEDS ORDERED: DEXTROSE 5%-WATER - 50 ML IVPB ONE (08:59)
[2021-04-07] MEDS: HYDROCORTISONE ACETATE 25 MG/SUPP.RECT RC SCH (09:04)
[2021-04-07] MEDS: metoPROLOL SUCCINATE 25 MG TAB.SR.24H (FP) PO SCH (09:05)
[2021-04-07] MEDS: CEFTRIAXONE 1 GM in DEXTROSE 5%-WATER - 50 ML IVPB SCH (09:05)
[2021-04-07] MEDS: FAMOTIDINE 20 MG TABLET PO SCH (09:05)
[2021-04-07] MEDS: SERTRALINE HCL 50 MG TABLET (FP) PO SCH (09:05)
[2021-04-07] MEDS: CALCIUM CARBONATE 650 MG TABLET PO SCH (09:05)
[2021-04-07] MEDS: SIMETHICONE 80 MG TAB.CHEW (FP) PO SCH (09:05)
[2021-04-07] MEDS: POLYETHYLENE GLYCOL (HEALTHYLAX) 3350 17 GM PACKET PO SCH (09:06)
[2021-04-07] MEDS: ZINC OXIDE 20% TOPICAL OINTMENT 30 GM TUBE TP SCH (09:06)
[2021-04-07] MEDS: FLUTICASONE/UMECLIDIN/VILANTER(200-62.5-25 TRELEGY ELLIPTA) INAHLER IH SCH (09:06)
[2021-04-07 10:50] VITALS: BP 137/75; PULSE 56; TEMP 98.2
[2021-04-07 16:11] LABS: SARS-CoV-2 NAA Not Detected (Not Detected)
== END 2021-04-07 11:44 | disposition home or self-care (01) | DRG 392 ==
LOC: JER 12:50 → JERBED 15:29 → J8W 17:35 → OBSVTOIN 03-26 10:07 → J4S 03-29 17:18
PROVIDERS: ADMIT Internal Medicine; ATTEND Internal Medicine
PROC: 30233K1 Transfusion of Nonautologous Frozen Plasma into Peripheral Vein, Percutaneous Approach (ICD-10-PCS; 2021-03-29)
PROC: 30233P1 Transfusion of Nonautologous Frozen Red Cells into Peripheral Vein, Percutaneous Approach (ICD-10-PCS; 2021-03-29)
PROC: 30233R1 Transfusion of Nonautologous Platelets into Peripheral Vein, Percutaneous Approach (ICD-10-PCS; 2021-03-29)
PROC: 0DJD8ZZ Inspection of Lower Intestinal Tract, Via Natural or Artificial Opening Endoscopic (ICD-10-PCS; 2021-03-30)
PROC: 0DB68ZX Excision of Stomach, Via Natural or Artificial Opening Endoscopic, Diagnostic (ICD-10-PCS; principal; 2021-03-30 07:30)
DX: K31.84 Gastroparesis (principal); K62.5 Hemorrhage of anus and rectum; F05 Delirium due to known physiological condition; C61 Malignant neoplasm of prostate; K57.90 Diverticulosis of intestine, part unspecified, without perforation or abscess without bleeding; I10 Essential (primary) hypertension; I48.91 Unspecified atrial fibrillation; Z79.01 Long term (current) use of anticoagulants; J44.9 Chronic obstructive pulmonary disease, unspecified; E78.5 Hyperlipidemia, unspecified; N40.0 Benign prostatic hyperplasia without lower urinary tract symptoms; H40.9 Unspecified glaucoma; I71.2 Thoracic aortic aneurysm, without rupture; T42.6X5A Adverse effect of other antiepileptic and sedative-hypnotic drugs, initial encounter; K29.60 Other gastritis without bleeding; K64.8 Other hemorrhoids; K64.4 Residual hemorrhoidal skin tags; T44.3X5A Adverse effect of other parasympatholytics [anticholinergics and antimuscarinics] and spasmolytics, initial encounter; K59.00 Constipation, unspecified; K86.89 Other specified diseases of pancreas
CPT/HCPCS: 36415; 36430; 70450-TC; 71045-TC-FY; 74018-TC-FY; 74019-TC-FY; 76705-TC; 80048; 80053; 82140; 83010; 83690; 83735; 84100; 84484; 85025; 85027; 85730; 86078; 86850; 86900; 86901; 86922; 87040; 87804; 88305-TC; 93005; 93010; 99285-25; C9803; G0378; P9017; P9058; Q0162; U0003; U0005

== ENCOUNTER 2021-08-22 14:55 | Inpatient (IN) | payer OTHER, BC ==
[2021-08-22] MEDS ORDERED: ALBUTEROL SO4 2.5/IPRATROPIUM 0.5 INH SOL 3 ML VIAL.NEB. NEB ONE ×2 (15:21→16:35)
[2021-08-22] MEDS ORDERED: DEXAMETHASONE SOD PHOSPHATE 10 MG/1 ML VIAL IVPUSH ONE (16:30)
[2021-08-22] MEDS ORDERED: DEXAMETHASONE SOD PHOSPHATE 10 MG/1 ML VIAL ONE (16:35)
[2021-08-22 16:54] LABS: VENOUS BASE EXCESS 1.3 mmol/L (-2-2); VENOUS O2 SATURATION 75.9 % (70-80); VENOUS PH 7.438 (7.310-7.410)
[2021-08-22 16:56] LABS: INR 2.44 (0.83-1.09); PROTHROMBIN TIME (PATIENT) 28.3 SEC (9.7-13.0)
[2021-08-22 16:58] LABS: ACTIVATED PTT 32.1 SECONDS (25.2-36.5)
[2021-08-22 17:01] LABS: HEMATOCRIT 17.4 % (35.4-49); MCH 20.8 pg (25.7-33.7); MCHC 29.4 g/dl (32.0-35.9); MEAN CELL VOLUME 70.6 fl (80-96); MEAN PLT VOLUME 7.6 fl (7.5-11.1); PLATELET COUNT 337 10^3/uL (134-434); RBC 2.46 M/mm3 (4.00-5.60); RDW 24.3 % (11.9-15.9); WHITE BLOOD COUNT 11.4 K/mm3 (4.0-10.0)
[2021-08-22 17:07] LABS: HEMOGLOBIN 5.1 GM/dL (11.7-16.9)
[2021-08-22 17:15] LABS: ALBUMIN 3.1 g/dl (3.4-5.0); CALCIUM 8.5 mg/dL (8.5-10.1)
[2021-08-22 17:16] LABS: MAGNESIUM 2.2 mg/dL (1.8-2.4)
[2021-08-22 17:20] LABS: BILIRUBIN,TOTAL 0.4 mg/dL (0.2-1); TOT PROT 5.6 g/dl (6.4-8.2)
[2021-08-22 17:23] LABS: N-TERMINAL BNP 2196.3 pg/ml (5-125)
[2021-08-22] MEDS ORDERED: CEFTRIAXONE 1 GM in DEXTROSE 5%-WATER - 50 ML IVPB ONE (17:24)
[2021-08-22] MEDS ORDERED: AZITHROMYCIN IVPB 500 MG in DEXTROSE 5%-WATER - 250 ML IVPB ONE ×2 (17:24→23:00)
[2021-08-22 17:43] LABS: LACTIC ACID 3.2 mmol/L (0.4-2.0)
[2021-08-22 19:12] LABS: ANISOCYTOSIS 3+; HELMET CELLS 2+; MACROCYTOSIS 0
[2021-08-22] MEDS ORDERED: ZOLPIDEM TARTRATE 5 MG TABLET PO ONE (21:27)
[2021-08-22] MEDS ORDERED: GABAPENTIN 100 MG CAPSULE PO ONE (21:28)
[2021-08-22 21:43] LABS: RETICULOCYTES 2.46 % (0.5-1.5)
[2021-08-22] MEDS ORDERED: ALBUTEROL SO4 2.5/IPRATROPIUM 0.5 INH SOL 3 ML VIAL.NEB. NEB PRN (21:45)
[2021-08-22] MEDS ORDERED: ALBUTEROL SO4 HFA INHALER IH PRN (21:57)
[2021-08-22] MEDS ORDERED: GABAPENTIN 100 MG CAPSULE ONE (22:02)
[2021-08-22] MEDS ORDERED: ZOLPIDEM TARTRATE 5 MG TABLET ONE (22:02)
[2021-08-22] MEDS ORDERED: ATORVASTATIN CA 40 MG TABLET (FP) ONE (22:25)
[2021-08-22] MEDS: ATORVASTATIN CA 40 MG TABLET (FP) PO SCH (22:56)
[2021-08-22] MEDS: BUDESONIDE/FORMETEROL FUMARATE 160/4.5 mcg INHALER IH SCH (22:57)
[2021-08-22] MEDS ORDERED: CEFTRIAXONE 1 GM in DEXTROSE 5%-WATER - 100 ML IVPB ONE (23:00)
[2021-08-23 01:44] VITALS: BMI 25.7
[2021-08-23] MEDS: methylPREDNISolone NA SUCC 40 MG/1 ML VIAL IVPUSH SCH ×3 (02:22→17:35)
[2021-08-23] MEDS: FAMOTIDINE 20 MG/50 ML IVPB 20 MG/50 ML MG IVPB SCH ×3 (02:53→21:18)
[2021-08-23] MEDS ORDERED: AZITHROMYCIN 500 MG TABLET PO ONE (04:18)
[2021-08-23 07:15] LABS: HEMATOCRIT 21.5 % (35.4-49); MCH 23.2 pg (25.7-33.7); MCHC 31.5 g/dl (32.0-35.9); MEAN CELL VOLUME 73.6 fl (80-96); MEAN PLT VOLUME 7.4 fl (7.5-11.1); PLATELET COUNT 291 10^3/uL (134-434); RBC 2.93 M/mm3 (4.00-5.60)
[2021-08-23 07:22] LABS: HEMOGLOBIN 6.8 GM/dL (11.7-16.9)
[2021-08-23 07:29] LABS: CALCIUM 8.4 mg/dL (8.5-10.1)
[2021-08-23 07:30] LABS: ALBUMIN 2.9 g/dl (3.4-5.0); BLOOD UREA NITROGEN 23.2 mg/dL (7-18); MAGNESIUM 2.4 mg/dL (1.8-2.4)
[2021-08-23 07:33] LABS: CHOLESTEROL 133 mg/dL (50-200); PHOSPHOROUS 3.5 mg/dL (2.5-4.9)
[2021-08-23 07:34] LABS: LDL CHOLESTEROL (ONLY SJRH) 38 mg/dL (5-100); TOT PROT 5.1 g/dl (6.4-8.2); TRIGLYCERIDES 46 mg/dL (0-150)
[2021-08-23 07:35] LABS: BILIRUBIN,TOTAL 0.5 mg/dL (0.2-1)
[2021-08-23 07:36] LABS: HDL CHOLESTEROL 85 mg/dL (40-60); LACTIC ACID 2.7 mmol/L (0.4-2.0)
[2021-08-23 09:23] LABS: ANISOCYTOSIS 1+; CORRECTED WBC 8.11 K/mm3; MACROCYTOSIS 0; OVALOCYTE 2+
[2021-08-23] MEDS ORDERED: FUROSEMIDE 40 MG/4 ML INJECTABLE VIAL IVPUSH ONE (09:45)
[2021-08-23] MEDS ORDERED: PATIENT'S OWN MEDICATION (NON-FORMULARY) (Betamethasone/Propylene Glyc [Betamethasone Dp A TP SCH (10:00)
[2021-08-23] MEDS ORDERED: AZITHROMYCIN 250 MG TABLET PO SCH (10:00)
[2021-08-23] MEDS: BUDESONIDE/FORMETEROL FUMARATE 160/4.5 mcg INHALER IH SCH ×2 (10:14→21:18)
[2021-08-23] MEDS: GABAPENTIN 100 MG CAPSULE PO SCH ×3 (10:14→21:18)
[2021-08-23] MEDS: EZETIMIBE 10 MG TABLET (FP) PO SCH (10:14)
[2021-08-23] MEDS: metoPROLOL SUCCINATE 25 MG TAB.SR.24H (FP) PO SCH (10:14)
[2021-08-23] MEDS: BETAMETHASONE DIPR 0.05% CREAM 15 GM TUBE TP SCH (10:15)
[2021-08-23] MEDS: ATORVASTATIN CA 40 MG TABLET (FP) PO SCH (21:18)
[2021-08-23] MEDS ORDERED: ZOLPIDEM TARTRATE 5 MG TABLET PO ONE (21:52)
[2021-08-23] MEDS ORDERED: ZOLPIDEM TARTRATE 5 MG TABLET PO PRN ×2 (22:00→22:29)
[2021-08-23 22:51] LABS: HEMATOCRIT 27.5 % (35.4-49); HEMOGLOBIN 8.7 GM/dL (11.7-16.9); MCH 24.5 pg (25.7-33.7); MCHC 31.8 g/dl (32.0-35.9); MEAN CELL VOLUME 77.1 fl (80-96); MEAN PLT VOLUME 7.8 fl (7.5-11.1); PLATELET COUNT 292 10^3/uL (134-434); RBC 3.57 M/mm3 (4.00-5.60); RDW 23.8 % (11.9-15.9); WHITE BLOOD COUNT 13.7 K/mm3 (4.0-10.0)
[2021-08-24] MEDS: methylPREDNISolone NA SUCC 40 MG/1 ML VIAL IVPUSH SCH ×3 (01:41→16:52)
[2021-08-24] MEDS: MELATONIN 5 MG TABLETS PO PRN (02:39)
[2021-08-24] MEDS: GABAPENTIN 100 MG CAPSULE PO SCH ×3 (06:30→21:46)
[2021-08-24 09:59] LABS: HEMOGLOBIN 8.7 GM/dL (11.7-16.9); MCH 24.5 pg (25.7-33.7); MCHC 32.2 g/dl (32.0-35.9); MEAN PLT VOLUME 7.7 fl (7.5-11.1); PLATELET COUNT 290 10^3/uL (134-434); RBC 3.55 M/mm3 (4.00-5.60); RDW 23.7 % (11.9-15.9); WHITE BLOOD COUNT 16.1 K/mm3 (4.0-10.0)
[2021-08-24 10:04] LABS: INR 1.03 (0.83-1.09); PROTHROMBIN TIME (PATIENT) 11.9 SEC (9.7-13.0)
[2021-08-24 10:19] LABS: CALCIUM 8.8 mg/dL (8.5-10.1)
[2021-08-24 10:20] LABS: BLOOD UREA NITROGEN 26.6 mg/dL (7-18)
[2021-08-24 10:23] LABS: CREATININE 0.9 mg/dL (0.55-1.3)
[2021-08-24 10:24] LABS: BILIRUBIN,TOTAL 0.8 mg/dL (0.2-1); TOT PROT 5.5 g/dl (6.4-8.2)
[2021-08-24] MEDS: EZETIMIBE 10 MG TABLET (FP) PO SCH (10:26)
[2021-08-24] MEDS: BUDESONIDE/FORMETEROL FUMARATE 160/4.5 mcg INHALER IH SCH (10:26)
[2021-08-24] MEDS: metoPROLOL SUCCINATE 25 MG TAB.SR.24H (FP) PO SCH (10:26)
[2021-08-24] MEDS: FAMOTIDINE 20 MG/50 ML IVPB 20 MG/50 ML MG IVPB SCH ×2 (10:26→21:46)
[2021-08-24] MEDS: AZITHROMYCIN 250 MG TABLET PO SCH (10:28)
[2021-08-24 10:34] LABS: LACTIC ACID 2.9 mmol/L (0.4-2.0)
[2021-08-24] MEDS: NYSTATIN 500,000 UNITS/5 ML SUSPENSION PO SCH ×4 (11:55→23:00)
[2021-08-24] MEDS ORDERED: ALBUTEROL SO4 HFA INHALER IH SCH ×2 (12:00)
[2021-08-24] MEDS: BETAMETHASONE DIPR 0.05% CREAM 15 GM TUBE TP SCH (12:01)
[2021-08-24] MEDS: ALBUTEROL SO4 2.5/IPRATROPIUM 0.5 INH SOL 3 ML VIAL.NEB. NEB SCH ×3 (12:05→19:45)
[2021-08-24] MEDS ORDERED: ALBUTEROL SO4 HFA INHALER IH PRN ×2 (12:15→12:39)
[2021-08-24] MEDS ORDERED: FUROSEMIDE 40 MG/4 ML INJECTABLE VIAL IVPUSH ONE (12:15)
[2021-08-24 18:05] LABS: HEMATOCRIT 28.8 % (35.4-49); MCH 23.9 pg (25.7-33.7); MCHC 31.4 g/dl (32.0-35.9); MEAN CELL VOLUME 76.2 fl (80-96); MEAN PLT VOLUME 7.9 fl (7.5-11.1); PLATELET COUNT 318 10^3/uL (134-434); RBC 3.78 M/mm3 (4.00-5.60); WHITE BLOOD COUNT 17.1 K/mm3 (4.0-10.0)
[2021-08-24] MEDS: ATORVASTATIN CA 40 MG TABLET (FP) PO SCH (21:46)
[2021-08-24] MEDS: HYDROCORTISONE ACETATE 25 MG/SUPP.RECT PR SCH (21:48)
[2021-08-24] MEDS: ZOLPIDEM TARTRATE 5 MG TABLET PO PRN (21:50)
[2021-08-25] MEDS: methylPREDNISolone NA SUCC 40 MG/1 ML VIAL IVPUSH SCH ×2 (06:15→12:51)
[2021-08-25] MEDS: NYSTATIN 500,000 UNITS/5 ML SUSPENSION PO SCH ×3 (06:15→17:14)
[2021-08-25] MEDS: GABAPENTIN 100 MG CAPSULE PO SCH ×3 (06:15→22:17)
[2021-08-25] MEDS: ALBUTEROL SO4 2.5/IPRATROPIUM 0.5 INH SOL 3 ML VIAL.NEB. NEB SCH ×4 (08:12→20:05)
[2021-08-25 08:57] LABS: HEMATOCRIT 30.8 % (35.4-49); HEMOGLOBIN 9.7 GM/dL (11.7-16.9); MCH 24.3 pg (25.7-33.7); MCHC 31.5 g/dl (32.0-35.9); MEAN PLT VOLUME 8.5 fl (7.5-11.1); PLATELET COUNT 324 10^3/uL (134-434); RBC 3.99 M/mm3 (4.00-5.60); RDW 24.4 % (11.9-15.9); WHITE BLOOD COUNT 16.3 K/mm3 (4.0-10.0)
[2021-08-25 09:04] LABS: INR 0.99 (0.83-1.09); PROTHROMBIN TIME (PATIENT) 11.4 SEC (9.7-13.0)
[2021-08-25 09:26] LABS: CALCIUM 8.9 mg/dL (8.5-10.1)
[2021-08-25 09:27] LABS: ALBUMIN 3.4 g/dl (3.4-5.0); BLOOD UREA NITROGEN 27.8 mg/dL (7-18); MAGNESIUM 2.6 mg/dL (1.8-2.4)
[2021-08-25 09:29] LABS: TOT PROT 6.1 g/dl (6.4-8.2)
[2021-08-25 09:30] LABS: CREATININE 0.9 mg/dL (0.55-1.3); PHOSPHOROUS 3.7 mg/dL (2.5-4.9)
[2021-08-25] MEDS: FAMOTIDINE 20 MG/50 ML IVPB 20 MG/50 ML MG IVPB SCH ×2 (10:16→22:17)
[2021-08-25] MEDS: EZETIMIBE 10 MG TABLET (FP) PO SCH (10:16)
[2021-08-25] MEDS: metoPROLOL SUCCINATE 25 MG TAB.SR.24H (FP) PO SCH (10:16)
[2021-08-25] MEDS: FLUTICASONE/UMECLIDIN/VILANTER(200-62.5-25 TRELEGY ELLIPTA) INAHLER IH SCH (10:17)
[2021-08-25] MEDS: AZITHROMYCIN 250 MG TABLET PO SCH (10:17)
[2021-08-25 10:48] LABS: ANISOCYTOSIS 3+; MACROCYTOSIS 0; OVALOCYTE 1+
[2021-08-25] MEDS: ATORVASTATIN CA 40 MG TABLET (FP) PO SCH (22:16)
[2021-08-25] MEDS: HYDROCORTISONE ACETATE 25 MG/SUPP.RECT PR SCH (22:16)
[2021-08-25] MEDS: ZOLPIDEM TARTRATE 5 MG TABLET PO PRN (22:18)
[2021-08-26] MEDS: methylPREDNISolone NA SUCC 40 MG/1 ML VIAL IVPUSH SCH ×2 (00:50→11:47)
[2021-08-26] MEDS: NYSTATIN 500,000 UNITS/5 ML SUSPENSION PO SCH ×4 (00:50→17:40)
[2021-08-26] MEDS: MELATONIN 5 MG TABLETS PO PRN ×2 (02:02→22:58)
[2021-08-26] MEDS: GABAPENTIN 100 MG CAPSULE PO SCH ×3 (06:39→21:55)
[2021-08-26] MEDS: ALBUTEROL SO4 2.5/IPRATROPIUM 0.5 INH SOL 3 ML VIAL.NEB. NEB SCH ×4 (07:45→20:24)
[2021-08-26 08:41] LABS: HEMATOCRIT 29.4 % (35.4-49); HEMOGLOBIN 9.4 GM/dL (11.7-16.9); MCH 24.5 pg (25.7-33.7); MCHC 31.8 g/dl (32.0-35.9); MEAN PLT VOLUME 7.7 fl (7.5-11.1); PLATELET COUNT 270 10^3/uL (134-434); RBC 3.82 M/mm3 (4.00-5.60); RDW 25.1 % (11.9-15.9); WHITE BLOOD COUNT 15.3 K/mm3 (4.0-10.0)
[2021-08-26 09:16] LABS: CREATININE 0.8 mg/dL (0.55-1.3)
[2021-08-26 09:17] LABS: ALBUMIN 3.2 g/dl (3.4-5.0); BLOOD UREA NITROGEN 25.1 mg/dL (7-18)
[2021-08-26 09:18] LABS: CALCIUM 8.7 mg/dL (8.5-10.1); MAGNESIUM 2.6 mg/dL (1.8-2.4)
[2021-08-26 09:21] LABS: PHOSPHOROUS 3.8 mg/dL (2.5-4.9)
[2021-08-26 09:22] LABS: BILIRUBIN,TOTAL 0.8 mg/dL (0.2-1); TOT PROT 5.7 g/dl (6.4-8.2)
[2021-08-26] MEDS: metoPROLOL SUCCINATE 25 MG TAB.SR.24H (FP) PO SCH (09:57)
[2021-08-26] MEDS: EZETIMIBE 10 MG TABLET (FP) PO SCH (09:57)
[2021-08-26] MEDS: AZITHROMYCIN 250 MG TABLET PO SCH (09:57)
[2021-08-26] MEDS: FAMOTIDINE 20 MG/50 ML IVPB 20 MG/50 ML MG IVPB SCH ×2 (09:58→21:56)
[2021-08-26] MEDS: FLUTICASONE/UMECLIDIN/VILANTER(200-62.5-25 TRELEGY ELLIPTA) INAHLER IH SCH (09:58)
[2021-08-26 10:38] LABS: ANISOCYTOSIS 2+; MACROCYTOSIS 0
[2021-08-26] MEDS: BENZOCAINE/MENTH/CETYLPYRD CL 1 EACH LOZENGE MM PRN ×3 (13:09→19:46)
[2021-08-26] MEDS: ATORVASTATIN CA 40 MG TABLET (FP) PO SCH (21:55)
[2021-08-26] MEDS: ZOLPIDEM TARTRATE 5 MG TABLET PO PRN (22:58)
[2021-08-26] MEDS: HYDROCORTISONE ACETATE 25 MG/SUPP.RECT PR SCH (23:01)
[2021-08-27] MEDS: NYSTATIN 500,000 UNITS/5 ML SUSPENSION PO SCH ×5 (03:11→23:17)
[2021-08-27] MEDS: GABAPENTIN 100 MG CAPSULE PO SCH ×3 (06:27→21:42)
[2021-08-27] MEDS: ALBUTEROL SO4 2.5/IPRATROPIUM 0.5 INH SOL 3 ML VIAL.NEB. NEB SCH ×4 (08:05→20:07)
[2021-08-27] MEDS: metoPROLOL SUCCINATE 25 MG TAB.SR.24H (FP) PO SCH (09:34)
[2021-08-27] MEDS: FAMOTIDINE 20 MG/50 ML IVPB 20 MG/50 ML MG IVPB SCH ×2 (09:34→21:42)
[2021-08-27] MEDS: AZITHROMYCIN 250 MG TABLET PO SCH (09:34)
[2021-08-27] MEDS: EZETIMIBE 10 MG TABLET (FP) PO SCH (09:34)
[2021-08-27] MEDS: BENZOCAINE/MENTH/CETYLPYRD CL 1 EACH LOZENGE MM PRN ×2 (09:35→20:45)
[2021-08-27] MEDS: FLUTICASONE/UMECLIDIN/VILANTER(200-62.5-25 TRELEGY ELLIPTA) INAHLER IH SCH (09:37)
[2021-08-27] MEDS ORDERED: methylPREDNISolone NA SUCC 125 MG/2 ML VIAL IVPUSH SCH (10:00)
[2021-08-27 10:58] LABS: BASO % 0.1 % (0-2.0); EOS % 0.4 % (0-4.5); HEMATOCRIT 31.3 % (35.4-49); HEMOGLOBIN 9.7 GM/dL (11.7-16.9); LYMPH % 6.5 % (8-40); MCH 24.2 pg (25.7-33.7); MEAN CELL VOLUME 78.1 fl (80-96); MEAN PLT VOLUME 8.2 fl (7.5-11.1); MONO % 9.5 % (3.8-10.2); NEUT % 83.5 % (42.8-82.8); PLATELET COUNT 238 10^3/uL (134-434); RDW 25.2 % (11.9-15.9); WHITE BLOOD COUNT 15.3 K/mm3 (4.0-10.0)
[2021-08-27 11:14] LABS: CALCIUM 8.4 mg/dL (8.5-10.1)
[2021-08-27 11:15] LABS: ALBUMIN 3.2 g/dl (3.4-5.0); BLOOD UREA NITROGEN 25.8 mg/dL (7-18); MAGNESIUM 2.4 mg/dL (1.8-2.4)
[2021-08-27 11:18] LABS: CREATININE 0.7 mg/dL (0.55-1.3); PHOSPHOROUS 2.7 mg/dL (2.5-4.9)
[2021-08-27 11:20] LABS: BILIRUBIN,TOTAL 0.6 mg/dL (0.2-1); LACTIC ACID 2.7 mmol/L (0.4-2.0); TOT PROT 5.5 g/dl (6.4-8.2)
[2021-08-27] MEDS: methylPREDNISolone NA SUCC 40 MG/1 ML VIAL IVPUSH SCH ×2 (12:29→21:42)
[2021-08-27] MEDS: MAG HYDROX/ALH/SMC/DPHA/LIDO 240 ML MOUTHWASH MM SCH ×3 (12:30→23:17)
[2021-08-27] MEDS: FLUCONAZOLE 100 MG TABLET (UD) PO SCH (17:52)
[2021-08-27] MEDS: ATORVASTATIN CA 40 MG TABLET (FP) PO SCH (21:42)
[2021-08-27] MEDS: HYDROCORTISONE ACETATE 25 MG/SUPP.RECT PR SCH (21:59)
[2021-08-27] MEDS ORDERED: ACETAMINOPHEN 325 MG TABLET (FP) PO ONE (23:06)
[2021-08-27] MEDS ORDERED: guaiFENesin 200 MG/10 ML 10 ML UNIT-DOSE CUPS PO ONE (23:07)
[2021-08-27] MEDS: ZOLPIDEM TARTRATE 5 MG TABLET PO PRN (23:50)
[2021-08-28] MEDS: GABAPENTIN 100 MG CAPSULE PO SCH ×3 (06:21→21:36)
[2021-08-28] MEDS: NYSTATIN 500,000 UNITS/5 ML SUSPENSION PO SCH ×3 (06:21→17:06)
[2021-08-28] MEDS: MAG HYDROX/ALH/SMC/DPHA/LIDO 240 ML MOUTHWASH MM SCH ×3 (07:12→17:06)
[2021-08-28] MEDS: ALBUTEROL SO4 2.5/IPRATROPIUM 0.5 INH SOL 3 ML VIAL.NEB. NEB SCH ×4 (08:55→20:32)
[2021-08-28] MEDS: FAMOTIDINE 20 MG/50 ML IVPB 20 MG/50 ML MG IVPB SCH ×2 (10:07→21:35)
[2021-08-28] MEDS: EZETIMIBE 10 MG TABLET (FP) PO SCH (10:07)
[2021-08-28] MEDS: FLUCONAZOLE 100 MG TABLET (UD) PO SCH (10:07)
[2021-08-28] MEDS: FLUTICASONE/UMECLIDIN/VILANTER(200-62.5-25 TRELEGY ELLIPTA) INAHLER IH SCH (10:07)
[2021-08-28] MEDS: metoPROLOL SUCCINATE 25 MG TAB.SR.24H (FP) PO SCH (10:07)
[2021-08-28 10:57] LABS: HEMATOCRIT 29.4 % (35.4-49); MCH 23.9 pg (25.7-33.7); MCHC 30.8 g/dl (32.0-35.9); MEAN CELL VOLUME 77.7 fl (80-96); MEAN PLT VOLUME 7.9 fl (7.5-11.1); PLATELET COUNT 207 10^3/uL (134-434); RBC 3.78 M/mm3 (4.00-5.60); RDW 25.4 % (11.9-15.9); WHITE BLOOD COUNT 12.6 K/mm3 (4.0-10.0)
[2021-08-28 11:20] LABS: BLOOD UREA NITROGEN 26.2 mg/dL (7-18); CALCIUM 8.5 mg/dL (8.5-10.1); MAGNESIUM 2.5 mg/dL (1.8-2.4)
[2021-08-28 11:22] LABS: CREATININE 0.8 mg/dL (0.55-1.3)
[2021-08-28 11:24] LABS: BILIRUBIN,TOTAL 0.8 mg/dL (0.2-1); PHOSPHOROUS 3.5 mg/dL (2.5-4.9); TOT PROT 5.3 g/dl (6.4-8.2)
[2021-08-28 11:50] LABS: ANISOCYTOSIS 2+; MACROCYTOSIS 1+
[2021-08-28] MEDS: methylPREDNISolone NA SUCC 40 MG/1 ML VIAL IVPUSH SCH ×2 (12:14→21:57)
[2021-08-28] MEDS: ATORVASTATIN CA 40 MG TABLET (FP) PO SCH (21:36)
[2021-08-28] MEDS: HYDROCORTISONE ACETATE 25 MG/SUPP.RECT PR SCH (22:25)
[2021-08-29] MEDS: ZOLPIDEM TARTRATE 5 MG TABLET PO PRN ×2 (00:13→22:41)
[2021-08-29] MEDS: NYSTATIN 500,000 UNITS/5 ML SUSPENSION PO SCH ×5 (00:13→23:20)
[2021-08-29] MEDS: ACETAMINOPHEN 325 MG TABLET (FP) PO PRN ×2 (00:13→11:31)
[2021-08-29] MEDS: guaiFENesin/D-M SUGAR-FREE/ACLHOL-FREE 118 ML BOTTLE PO PRN ×3 (00:14→11:31)
[2021-08-29] MEDS: MAG HYDROX/ALH/SMC/DPHA/LIDO 240 ML MOUTHWASH MM SCH ×5 (00:25→22:21)
[2021-08-29] MEDS: GABAPENTIN 100 MG CAPSULE PO SCH ×3 (06:12→22:20)
[2021-08-29] MEDS: BENZOCAINE/MENTH/CETYLPYRD CL 1 EACH LOZENGE MM PRN (06:12)
[2021-08-29] MEDS: ALBUTEROL SO4 2.5/IPRATROPIUM 0.5 INH SOL 3 ML VIAL.NEB. NEB SCH ×4 (07:43→20:28)
[2021-08-29] MEDS: metoPROLOL SUCCINATE 25 MG TAB.SR.24H (FP) PO SCH (09:30)
[2021-08-29] MEDS: FLUTICASONE/UMECLIDIN/VILANTER(200-62.5-25 TRELEGY ELLIPTA) INAHLER IH SCH (09:30)
[2021-08-29] MEDS: EZETIMIBE 10 MG TABLET (FP) PO SCH (09:30)
[2021-08-29] MEDS: FAMOTIDINE 20 MG/50 ML IVPB 20 MG/50 ML MG IVPB SCH ×2 (09:30→22:22)
[2021-08-29] MEDS ORDERED: MAG HYDROX/ALH/SMC/DPHA/LIDO 240 ML MOUTHWASH MM ONE (09:40)
[2021-08-29] MEDS: FLUCONAZOLE 200 MG/NS 100 ML IVPB SCH (10:07)
[2021-08-29 10:46] LABS: HEMATOCRIT 30.3 % (35.4-49); HEMOGLOBIN 9.4 GM/dL (11.7-16.9); MCH 24.1 pg (25.7-33.7); MEAN CELL VOLUME 77.7 fl (80-96); MEAN PLT VOLUME 8.5 fl (7.5-11.1); PLATELET COUNT 196 10^3/uL (134-434); RBC 3.91 M/mm3 (4.00-5.60); RDW 25.4 % (11.9-15.9); WHITE BLOOD COUNT 16.1 K/mm3 (4.0-10.0)
[2021-08-29 11:10] LABS: LACTIC ACID 3.2 mmol/L (0.4-2.0)
[2021-08-29 11:23] LABS: ALBUMIN 3.1 g/dl (3.4-5.0); BLOOD UREA NITROGEN 27.5 mg/dL (7-18); CALCIUM 8.4 mg/dL (8.5-10.1); MAGNESIUM 2.7 mg/dL (1.8-2.4)
[2021-08-29 11:26] LABS: CREATININE 0.8 mg/dL (0.55-1.3); PHOSPHOROUS 3.4 mg/dL (2.5-4.9)
[2021-08-29 11:28] LABS: BILIRUBIN,TOTAL 0.8 mg/dL (0.2-1); TOT PROT 5.4 g/dl (6.4-8.2)
[2021-08-29] MEDS: methylPREDNISolone NA SUCC 40 MG/1 ML VIAL IVPUSH SCH ×2 (11:32→22:21)
[2021-08-29] MEDS ORDERED: SODIUM CHLORIDE 500 ML IV STA (14:28)
[2021-08-29] MEDS ORDERED: LACTATED RINGERS SOLUTION 1,000 ML/1,000 ML INFUS.BAG IV SCH ×3 (14:30→16:00)
[2021-08-29] MEDS ORDERED: ACETAMINOPHEN 1000 MG/100 ML BAG IVPB PRN (14:31)
[2021-08-29] MEDS: RIVAROXABAN 20 MG TABLET PO SCH (17:42)
[2021-08-29] MEDS: ATORVASTATIN CA 40 MG TABLET (FP) PO SCH (22:21)
[2021-08-29] MEDS: HYDROCORTISONE ACETATE 25 MG/SUPP.RECT PR SCH (23:20)
[2021-08-30] MEDS: MAG HYDROX/ALH/SMC/DPHA/LIDO 240 ML MOUTHWASH MM SCH ×6 (01:59→21:59)
[2021-08-30] MEDS: GABAPENTIN 100 MG CAPSULE PO SCH (05:53)
[2021-08-30] MEDS: NYSTATIN 500,000 UNITS/5 ML SUSPENSION PO SCH ×3 (05:53→17:09)
[2021-08-30] MEDS: ALBUTEROL SO4 2.5/IPRATROPIUM 0.5 INH SOL 3 ML VIAL.NEB. NEB SCH (07:18)
[2021-08-30] MEDS: FLUTICASONE/UMECLIDIN/VILANTER(200-62.5-25 TRELEGY ELLIPTA) INAHLER IH SCH (09:18)
[2021-08-30] MEDS: FAMOTIDINE 20 MG/50 ML IVPB 20 MG/50 ML MG IVPB SCH ×2 (09:19→21:57)
[2021-08-30] MEDS: metoPROLOL SUCCINATE 25 MG TAB.SR.24H (FP) PO SCH (09:20)
[2021-08-30] MEDS: EZETIMIBE 10 MG TABLET (FP) PO SCH (09:20)
[2021-08-30] MEDS: ARFORMOTEROL TARTRATE 15 MCG/2 ML VIAL NEB SCH ×2 (10:48→19:40)
[2021-08-30] MEDS: BUDESONIDE/FORMETEROL FUMARATE 160/4.5 mcg INHALER IH SCH ×2 (10:50→21:58)
[2021-08-30] MEDS: methylPREDNISolone NA SUCC 40 MG/1 ML VIAL IVPUSH SCH ×2 (10:50→17:09)
[2021-08-30 11:07] LABS: HEMATOCRIT 30.6 % (35.4-49); HEMOGLOBIN 9.4 GM/dL (11.7-16.9); LYMPH % 2.6 % (8-40); MCH 24.2 pg (25.7-33.7); MCHC 30.8 g/dl (32.0-35.9); MEAN CELL VOLUME 78.6 fl (80-96); MEAN PLT VOLUME 7.7 fl (7.5-11.1); MONO % 7.5 % (3.8-10.2); NEUT % 89.9 % (42.8-82.8); PLATELET COUNT 203 10^3/uL (134-434); RDW 26.3 % (11.9-15.9); WHITE BLOOD COUNT 14.3 K/mm3 (4.0-10.0)
[2021-08-30 11:33] LABS: ANISOCYTOSIS 1+; MACROCYTOSIS 0; OVALOCYTE 1+
[2021-08-30 11:59] LABS: CALCIUM 8.8 mg/dL (8.5-10.1)
[2021-08-30 12:00] LABS: MAGNESIUM 2.8 mg/dL (1.8-2.4)
[2021-08-30] MEDS ORDERED: methylPREDNISolone NA SUCC 40 MG/1 ML VIAL IVPUSH SCH (12:00)
[2021-08-30 12:03] LABS: PHOSPHOROUS 3.4 mg/dL (2.5-4.9)
[2021-08-30 12:04] LABS: BILIRUBIN,TOTAL 0.5 mg/dL (0.2-1); TOT PROT 5.5 g/dl (6.4-8.2)
[2021-08-30] MEDS: FLUCONAZOLE 200 MG/NS 100 ML IVPB SCH (13:26)
[2021-08-30 16:57] LABS: LACTIC ACID 3.1 mmol/L (0.4-2.0)
[2021-08-30] MEDS: RIVAROXABAN 20 MG TABLET PO SCH (17:09)
[2021-08-30] MEDS: SODIUM CHLORIDE 0.45% 1,000 ML IV SCH (18:14)
[2021-08-30] MEDS: guaiFENesin/D-M SUGAR-FREE/ACLHOL-FREE 118 ML BOTTLE PO PRN (19:02)
[2021-08-30] MEDS: ALBUTEROL SO4 0.083% IH SOL 2.5 MG/3 ML VIAL.NEB. NEB PRN (19:40)
[2021-08-30] MEDS: ZOLPIDEM TARTRATE 5 MG TABLET PO PRN (21:58)
[2021-08-30] MEDS: MELATONIN 5 MG TABLETS PO PRN (21:58)
[2021-08-30] MEDS: ATORVASTATIN CA 40 MG TABLET (FP) PO SCH (21:58)
[2021-08-30] MEDS: HYDROCORTISONE ACETATE 25 MG/SUPP.RECT PR SCH (21:58)
[2021-08-31] MEDS: NYSTATIN 500,000 UNITS/5 ML SUSPENSION PO SCH ×4 (00:01→17:30)
[2021-08-31] MEDS: guaiFENesin/D-M SUGAR-FREE/ACLHOL-FREE 118 ML BOTTLE PO PRN (01:00)
[2021-08-31] MEDS: MAG HYDROX/ALH/SMC/DPHA/LIDO 240 ML MOUTHWASH MM SCH ×6 (01:00→21:43)
[2021-08-31] MEDS: ALBUTEROL SO4 0.083% IH SOL 2.5 MG/3 ML VIAL.NEB. NEB PRN (08:00)
[2021-08-31] MEDS: ARFORMOTEROL TARTRATE 15 MCG/2 ML VIAL NEB SCH ×2 (08:00→20:18)
[2021-08-31] MEDS: BUDESONIDE/FORMETEROL FUMARATE 160/4.5 mcg INHALER IH SCH ×2 (09:21→21:43)
[2021-08-31] MEDS: EZETIMIBE 10 MG TABLET (FP) PO SCH (09:22)
[2021-08-31] MEDS: FLUCONAZOLE 200 MG/NS 100 ML IVPB SCH (09:22)
[2021-08-31] MEDS: metoPROLOL SUCCINATE 25 MG TAB.SR.24H (FP) PO SCH (09:22)
[2021-08-31] MEDS: FAMOTIDINE 20 MG/50 ML IVPB 20 MG/50 ML MG IVPB SCH ×2 (10:49→21:44)
[2021-08-31] MEDS: LIDOCAINE VISCOUS 2% ORAL/TOP 15 ML UNIT-DOSE CUP MM PRN (10:50)
[2021-08-31 12:00] LABS: BASO % 0.1 % (0-2.0); HEMATOCRIT 29.7 % (35.4-49); HEMOGLOBIN 9.2 GM/dL (11.7-16.9); LYMPH % 3.1 % (8-40); MCH 24.1 pg (25.7-33.7); MCHC 31.1 g/dl (32.0-35.9); MEAN CELL VOLUME 77.7 fl (80-96); MEAN PLT VOLUME 8.2 fl (7.5-11.1); MONO % 7.6 % (3.8-10.2); NEUT % 89.2 % (42.8-82.8); PLATELET COUNT 204 10^3/uL (134-434); RBC 3.82 M/mm3 (4.00-5.60); RDW 25.4 % (11.9-15.9); WHITE BLOOD COUNT 13.3 K/mm3 (4.0-10.0)
[2021-08-31 12:29] LABS: LACTIC ACID 3.1 mmol/L (0.4-2.0)
[2021-08-31 12:33] LABS: CREATININE 0.7 mg/dL (0.55-1.3); PHOSPHOROUS 3.5 mg/dL (2.5-4.9)
[2021-08-31 12:35] LABS: BILIRUBIN,TOTAL 0.6 mg/dL (0.2-1); TOT PROT 5.5 g/dl (6.4-8.2)
[2021-08-31 12:38] LABS: BLOOD UREA NITROGEN 23.2 mg/dL (7-18); CALCIUM 8.5 mg/dL (8.5-10.1)
[2021-08-31 12:39] LABS: MAGNESIUM 2.6 mg/dL (1.8-2.4)
[2021-08-31] MEDS: SODIUM CHLORIDE 0.45% 1,000 ML IV SCH (14:19)
[2021-08-31] MEDS: RIVAROXABAN 20 MG TABLET PO SCH (17:31)
[2021-08-31] MEDS: GABAPENTIN 100 MG CAPSULE PO SCH (21:42)
[2021-08-31] MEDS: HYDROCORTISONE ACETATE 25 MG/SUPP.RECT PR SCH (21:42)
[2021-08-31] MEDS: MELATONIN 5 MG TABLETS PO PRN (21:43)
[2021-08-31] MEDS: ZOLPIDEM TARTRATE 5 MG TABLET PO PRN (21:43)
[2021-08-31] MEDS: ATORVASTATIN CA 40 MG TABLET (FP) PO SCH (21:43)
[2021-09-01] MEDS: NYSTATIN 500,000 UNITS/5 ML SUSPENSION PO SCH ×4 (00:16→17:39)
[2021-09-01] MEDS: MAG HYDROX/ALH/SMC/DPHA/LIDO 240 ML MOUTHWASH MM SCH ×6 (01:37→21:53)
[2021-09-01] MEDS: GABAPENTIN 100 MG CAPSULE PO SCH ×3 (06:14→21:49)
[2021-09-01] MEDS: ARFORMOTEROL TARTRATE 15 MCG/2 ML VIAL NEB SCH ×2 (08:33→21:08)
[2021-09-01] MEDS: FAMOTIDINE 20 MG/50 ML IVPB 20 MG/50 ML MG IVPB SCH ×2 (09:39→21:50)
[2021-09-01] MEDS: EZETIMIBE 10 MG TABLET (FP) PO SCH (09:39)
[2021-09-01] MEDS: metoPROLOL SUCCINATE 25 MG TAB.SR.24H (FP) PO SCH (09:39)
[2021-09-01] MEDS: FLUCONAZOLE 200 MG/NS 100 ML IVPB SCH (10:28)
[2021-09-01] MEDS: BUDESONIDE/FORMETEROL FUMARATE 160/4.5 mcg INHALER IH SCH ×2 (10:31→21:50)
[2021-09-01 11:11] LABS: BASO % 0.3 % (0-2.0); EOS % 0.5 % (0-4.5); HEMATOCRIT 31.4 % (35.4-49); HEMOGLOBIN 9.6 GM/dL (11.7-16.9); LYMPH % 8.7 % (8-40); MCH 24.1 pg (25.7-33.7); MCHC 30.4 g/dl (32.0-35.9); MEAN CELL VOLUME 79.2 fl (80-96); MEAN PLT VOLUME 8.5 fl (7.5-11.1); MONO % 12.9 % (3.8-10.2); NEUT % 77.6 % (42.8-82.8); PLATELET COUNT 199 10^3/uL (134-434); RBC 3.97 M/mm3 (4.00-5.60); RDW 25.6 % (11.9-15.9)
[2021-09-01 11:34] LABS: ALBUMIN 2.8 g/dl (3.4-5.0); BLOOD UREA NITROGEN 23.3 mg/dL (7-18); CALCIUM 8.3 mg/dL (8.5-10.1)
[2021-09-01 11:35] LABS: MAGNESIUM 2.5 mg/dL (1.8-2.4)
[2021-09-01 11:37] LABS: CREATININE 0.7 mg/dL (0.55-1.3); PHOSPHOROUS 3.3 mg/dL (2.5-4.9)
[2021-09-01 11:38] LABS: BILIRUBIN,TOTAL 0.6 mg/dL (0.2-1)
[2021-09-01] MEDS: LACTATED RINGERS SOLUTION 1,000 ML/1,000 ML INFUS.BAG IV SCH (12:03)
[2021-09-01] MEDS: RIVAROXABAN 20 MG TABLET PO SCH (17:39)
[2021-09-01] MEDS: ATORVASTATIN CA 40 MG TABLET (FP) PO SCH (21:49)
[2021-09-01] MEDS: MELATONIN 5 MG TABLETS PO PRN (21:52)
[2021-09-01] MEDS: ZOLPIDEM TARTRATE 5 MG TABLET PO PRN (21:52)
[2021-09-01] MEDS: HYDROCORTISONE ACETATE 25 MG/SUPP.RECT PR SCH (22:03)
[2021-09-01] MEDS ORDERED: ACETAMINOPHEN 500 MG TABLET (FP) PO ONE (22:14)
[2021-09-02] MEDS: NYSTATIN 500,000 UNITS/5 ML SUSPENSION PO SCH ×4 (00:05→17:43)
[2021-09-02] MEDS: MAG HYDROX/ALH/SMC/DPHA/LIDO 240 ML MOUTHWASH MM SCH ×6 (01:48→21:39)
[2021-09-02] MEDS: LACTATED RINGERS SOLUTION 1,000 ML/1,000 ML INFUS.BAG IV SCH ×3 (01:49→17:47)
[2021-09-02] MEDS: GABAPENTIN 100 MG CAPSULE PO SCH ×3 (05:20→21:38)
[2021-09-02] MEDS: ARFORMOTEROL TARTRATE 15 MCG/2 ML VIAL NEB SCH ×2 (07:41→20:16)
[2021-09-02] MEDS: FAMOTIDINE 20 MG/50 ML IVPB 20 MG/50 ML MG IVPB SCH ×2 (09:14→21:39)
[2021-09-02] MEDS: EZETIMIBE 10 MG TABLET (FP) PO SCH (09:14)
[2021-09-02] MEDS: metoPROLOL SUCCINATE 25 MG TAB.SR.24H (FP) PO SCH (09:14)
[2021-09-02] MEDS: BUDESONIDE/FORMETEROL FUMARATE 160/4.5 mcg INHALER IH SCH ×2 (09:19→21:39)
[2021-09-02 09:46] LABS: BASO % 0.2 % (0-2.0); EOS % 0.9 % (0-4.5); HEMATOCRIT 31.2 % (35.4-49); HEMOGLOBIN 9.7 GM/dL (11.7-16.9); LYMPH % 11.1 % (8-40); MCH 24.4 pg (25.7-33.7); MCHC 31.1 g/dl (32.0-35.9); MEAN CELL VOLUME 78.2 fl (80-96); MEAN PLT VOLUME 8.5 fl (7.5-11.1); NEUT % 77.8 % (42.8-82.8); PLATELET COUNT 197 10^3/uL (134-434); RBC 3.99 M/mm3 (4.00-5.60); RDW 26.1 % (11.9-15.9); WHITE BLOOD COUNT 10.9 K/mm3 (4.0-10.0)
[2021-09-02 10:04] LABS: CREATININE 0.7 mg/dL (0.55-1.3)
[2021-09-02 10:05] LABS: BILIRUBIN,TOTAL 0.7 mg/dL (0.2-1); TOT PROT 4.9 g/dl (6.4-8.2)
[2021-09-02 10:06] LABS: ALBUMIN 2.6 g/dl (3.4-5.0); BLOOD UREA NITROGEN 20.2 mg/dL (7-18); CALCIUM 8.1 mg/dL (8.5-10.1)
[2021-09-02 10:07] LABS: MAGNESIUM 2.2 mg/dL (1.8-2.4)
[2021-09-02] MEDS: TIOTROPIUM BROMIDE 2.5 MCG (SPIRIVA) RESPIMAT INHALER IH SCH (11:53)
[2021-09-02] MEDS: RIVAROXABAN 20 MG TABLET PO SCH (17:44)
[2021-09-02] MEDS: ATORVASTATIN CA 40 MG TABLET (FP) PO SCH (21:38)
[2021-09-02] MEDS: HYDROCORTISONE ACETATE 25 MG/SUPP.RECT PR SCH (21:39)
[2021-09-02] MEDS: MELATONIN 5 MG TABLETS PO PRN (21:40)
[2021-09-02] MEDS: ZOLPIDEM TARTRATE 5 MG TABLET PO PRN (21:40)
[2021-09-02] MEDS: guaiFENesin/D-M SUGAR-FREE/ACLHOL-FREE 118 ML BOTTLE PO PRN (21:46)
[2021-09-03] MEDS: NYSTATIN 500,000 UNITS/5 ML SUSPENSION PO SCH ×5 (00:31→23:13)
[2021-09-03] MEDS: MAG HYDROX/ALH/SMC/DPHA/LIDO 240 ML MOUTHWASH MM SCH ×5 (02:07→17:09)
[2021-09-03] MEDS: GABAPENTIN 100 MG CAPSULE PO SCH ×3 (06:15→14:08)
[2021-09-03] MEDS: ARFORMOTEROL TARTRATE 15 MCG/2 ML VIAL NEB SCH ×2 (08:30→20:10)
[2021-09-03] MEDS: BUDESONIDE/FORMETEROL FUMARATE 160/4.5 mcg INHALER IH SCH ×2 (10:56→22:52)
[2021-09-03] MEDS: EZETIMIBE 10 MG TABLET (FP) PO SCH (10:58)
[2021-09-03] MEDS: FAMOTIDINE 20 MG/50 ML IVPB 20 MG/50 ML MG IVPB SCH ×2 (11:02→22:20)
[2021-09-03] MEDS: TIOTROPIUM BROMIDE 2.5 MCG (SPIRIVA) RESPIMAT INHALER IH SCH (11:07)
[2021-09-03 11:08] LABS: HEMATOCRIT 30.1 % (35.4-49); HEMOGLOBIN 9.4 GM/dL (11.7-16.9); MCH 24.4 pg (25.7-33.7); MCHC 31.3 g/dl (32.0-35.9); MEAN CELL VOLUME 77.9 fl (80-96); MEAN PLT VOLUME 8.4 fl (7.5-11.1); PLATELET COUNT 156 10^3/uL (134-434); RBC 3.87 M/mm3 (4.00-5.60); RDW 26.4 % (11.9-15.9); WHITE BLOOD COUNT 10.5 K/mm3 (4.0-10.0)
[2021-09-03 11:38] LABS: ANISOCYTOSIS 3+; MACROCYTOSIS 0
[2021-09-03] MEDS ORDERED: SODIUM CHLORIDE 500 ML IV STA (11:41)
[2021-09-03 11:45] LABS: ALBUMIN 2.4 g/dl (3.4-5.0); BLOOD UREA NITROGEN 17.2 mg/dL (7-18); MAGNESIUM 2.3 mg/dL (1.8-2.4)
[2021-09-03 11:48] LABS: CREATININE 0.8 mg/dL (0.55-1.3); PHOSPHOROUS 2.8 mg/dL (2.5-4.9)
[2021-09-03 11:49] LABS: BILIRUBIN,TOTAL 0.5 mg/dL (0.2-1); TOT PROT 4.5 g/dl (6.4-8.2)
[2021-09-03] MEDS: metoPROLOL SUCCINATE 25 MG TAB.SR.24H (FP) PO SCH (11:52)
[2021-09-03] MEDS: LACTATED RINGERS SOLUTION 1,000 ML/1,000 ML INFUS.BAG IV SCH (12:24)
[2021-09-03] MEDS: LIDOCAINE VISCOUS 2% ORAL/TOP 15 ML UNIT-DOSE CUP MM PRN (12:28)
[2021-09-03] MEDS: ACETAMINOPHEN 1000 MG/100 ML BAG IVPB PRN ×2 (16:37→22:21)
[2021-09-03] MEDS: RIVAROXABAN 20 MG TABLET PO SCH (17:09)
[2021-09-03] MEDS ORDERED: GABAPENTIN 100 MG CAPSULE PO SCH ×2 (18:30→22:00)
[2021-09-03] MEDS ORDERED: ALBUTEROL SO4 HFA INHALER IH PRN (21:58)
[2021-09-03] MEDS ORDERED: LIDOCAINE VISCOUS 2% ORAL/TOP 15 ML UNIT-DOSE CUP MM PRN (21:58)
[2021-09-03] MEDS ORDERED: LACTATED RINGERS SOLUTION 1,000 ML/1,000 ML INFUS.BAG IV SCH (21:58)
[2021-09-03] MEDS ORDERED: BENZOCAINE/MENTH/CETYLPYRD CL 1 EACH LOZENGE MM PRN (21:58)
[2021-09-03] MEDS: GABAPENTIN 300 MG CAPSULE PO SCH (22:21)
[2021-09-03] MEDS: ATORVASTATIN CA 40 MG TABLET (FP) PO SCH (22:21)
[2021-09-03] MEDS: MELATONIN 5 MG TABLETS PO PRN (22:21)
[2021-09-03] MEDS: HYDROCORTISONE ACETATE 25 MG/SUPP.RECT PR SCH (22:52)
[2021-09-03] MEDS ORDERED: ZOLPIDEM TARTRATE 5 MG TABLET PO ONE (23:02)
[2021-09-04] MEDS: MAG HYDROX/ALH/SMC/DPHA/LIDO 240 ML MOUTHWASH MM SCH ×7 (00:18→21:19)
[2021-09-04] MEDS ORDERED: METOPROLOL TARTRATE 5 MG/5 ML VIAL IVPUSH ONE (02:18)
[2021-09-04] MEDS ORDERED: LACTATED RINGERS SOLUTION 1000 ML INFUS.BAG IV ONE ×2 (03:50→04:43)
[2021-09-04] MEDS ORDERED: DIGOXIN 0.5 MG/2 ML AMPUL IVPUSH ONE ×2 (03:50→04:43)
[2021-09-04] MEDS: KCL 10 MEQ IVPB 10 MEQ/100 ML INFUS.BAG IVPB SCH ×3 (04:00→06:29)
[2021-09-04] MEDS ORDERED: dilTIAZem HCL 50 MG/10 ML - 10 ML VIAL IVPUSH ONE ×3 (05:45→17:45)
[2021-09-04] MEDS: GABAPENTIN 100 MG CAPSULE PO SCH ×3 (05:52→17:42)
[2021-09-04] MEDS: NYSTATIN 500,000 UNITS/5 ML SUSPENSION PO SCH ×4 (05:52→23:56)
[2021-09-04 07:22] LABS: BASO % 0.4 % (0-2.0); EOS % 0.7 % (0-4.5); HEMATOCRIT 31.1 % (35.4-49); HEMOGLOBIN 9.4 GM/dL (11.7-16.9); LYMPH % 11.7 % (8-40); MCHC 30.3 g/dl (32.0-35.9); MEAN CELL VOLUME 79.2 fl (80-96); MONO % 10.5 % (3.8-10.2); NEUT % 76.7 % (42.8-82.8); PLATELET COUNT 199 10^3/uL (134-434); RBC 3.93 M/mm3 (4.00-5.60); RDW 25.7 % (11.9-15.9); WHITE BLOOD COUNT 11.3 K/mm3 (4.0-10.0)
[2021-09-04 07:47] LABS: ALBUMIN 2.4 g/dl (3.4-5.0); CALCIUM 8.1 mg/dL (8.5-10.1); MAGNESIUM 2.1 mg/dL (1.8-2.4)
[2021-09-04 07:48] LABS: BLOOD UREA NITROGEN 13.8 mg/dL (7-18)
[2021-09-04 07:50] LABS: CREATININE 0.7 mg/dL (0.55-1.3); PHOSPHOROUS 2.6 mg/dL (2.5-4.9)
[2021-09-04 07:51] LABS: TOT PROT 4.7 g/dl (6.4-8.2)
[2021-09-04 07:55] LABS: BILIRUBIN,TOTAL 0.4 mg/dL (0.2-1)
[2021-09-04] MEDS ORDERED: ARFORMOTEROL TARTRATE 15 MCG/2 ML VIAL NEB SCH (08:00)
[2021-09-04] MEDS ORDERED: dilTIAZem HCL 125 MG/25 ML - 25 ML VIAL ONE (09:03)
[2021-09-04] MEDS: metoPROLOL SUCCINATE 25 MG TAB.SR.24H (FP) PO SCH (09:08)
[2021-09-04] MEDS: FAMOTIDINE 20 MG/50 ML IVPB 20 MG/50 ML MG IVPB SCH ×2 (09:36→21:19)
[2021-09-04] MEDS: BUDESONIDE/FORMETEROL FUMARATE 160/4.5 mcg INHALER IH SCH ×2 (09:43→21:22)
[2021-09-04] MEDS: TIOTROPIUM BROMIDE 2.5 MCG (SPIRIVA) RESPIMAT INHALER IH SCH (09:43)
[2021-09-04] MEDS: EZETIMIBE 10 MG TABLET (FP) PO SCH (09:48)
[2021-09-04] MEDS: methylPREDNISolone NA SUCC 40 MG/1 ML VIAL IVPUSH SCH ×2 (11:38→17:41)
[2021-09-04] MEDS: dilTIAZem HCL 30 MG TABLET PO SCH ×3 (13:08→23:56)
[2021-09-04] MEDS: RIVAROXABAN 20 MG TABLET PO SCH (17:41)
[2021-09-04] MEDS: GABAPENTIN 300 MG CAPSULE PO SCH (21:19)
[2021-09-04] MEDS: ATORVASTATIN CA 40 MG TABLET (FP) PO SCH (21:19)
[2021-09-04] MEDS: traMADol HCL 50 MG TABLET PO PRN (21:20)
[2021-09-04] MEDS: HYDROCORTISONE ACETATE 25 MG/SUPP.RECT PR SCH (21:23)
[2021-09-04] MEDS: ZOLPIDEM TARTRATE 5 MG TABLET PO PRN (21:58)
[2021-09-05] MEDS: methylPREDNISolone NA SUCC 40 MG/1 ML VIAL IVPUSH SCH ×3 (01:46→17:50)
[2021-09-05] MEDS: MAG HYDROX/ALH/SMC/DPHA/LIDO 240 ML MOUTHWASH MM SCH ×6 (01:46→21:23)
[2021-09-05] MEDS: GABAPENTIN 100 MG CAPSULE PO SCH ×3 (05:52→17:50)
[2021-09-05] MEDS: NYSTATIN 500,000 UNITS/5 ML SUSPENSION PO SCH ×3 (05:52→17:50)
[2021-09-05] MEDS: dilTIAZem HCL 30 MG TABLET PO SCH ×2 (05:52→11:18)
[2021-09-05 07:37] LABS: HEMATOCRIT 31.3 % (35.4-49); HEMOGLOBIN 9.9 GM/dL (11.7-16.9); MCH 24.9 pg (25.7-33.7); MCHC 31.5 g/dl (32.0-35.9); MEAN CELL VOLUME 79.2 fl (80-96); MEAN PLT VOLUME 8.7 fl (7.5-11.1); PLATELET COUNT 215 10^3/uL (134-434); RBC 3.96 M/mm3 (4.00-5.60); RDW 25.6 % (11.9-15.9); WHITE BLOOD COUNT 10.8 K/mm3 (4.0-10.0)
[2021-09-05 07:47] LABS: CALCIUM 8.3 mg/dL (8.5-10.1)
[2021-09-05 07:48] LABS: MAGNESIUM 2.5 mg/dL (1.8-2.4)
[2021-09-05 07:51] LABS: ALBUMIN 2.8 g/dl (3.4-5.0); BLOOD UREA NITROGEN 23.3 mg/dL (7-18); CREATININE 0.8 mg/dL (0.55-1.3); PHOSPHOROUS 2.9 mg/dL (2.5-4.9)
[2021-09-05 07:53] LABS: BILIRUBIN,TOTAL 0.3 mg/dL (0.2-1); TOT PROT 5.4 g/dl (6.4-8.2)
[2021-09-05 08:52] LABS: ANISOCYTOSIS 3+; MACROCYTOSIS 0
[2021-09-05] MEDS: EZETIMIBE 10 MG TABLET (FP) PO SCH (10:07)
[2021-09-05] MEDS: TIOTROPIUM BROMIDE 2.5 MCG (SPIRIVA) RESPIMAT INHALER IH SCH (10:07)
[2021-09-05] MEDS: metoPROLOL SUCCINATE 25 MG TAB.SR.24H (FP) PO SCH (10:07)
[2021-09-05] MEDS: BUDESONIDE/FORMETEROL FUMARATE 160/4.5 mcg INHALER IH SCH ×2 (10:07→21:23)
[2021-09-05] MEDS: FAMOTIDINE 20 MG/50 ML IVPB 20 MG/50 ML MG IVPB SCH ×2 (10:10→21:23)
[2021-09-05] MEDS: traMADol HCL 50 MG TABLET PO PRN ×2 (15:46→21:21)
[2021-09-05] MEDS: RIVAROXABAN 20 MG TABLET PO SCH (17:50)
[2021-09-05] MEDS: GABAPENTIN 300 MG CAPSULE PO SCH (21:21)
[2021-09-05] MEDS: ZOLPIDEM TARTRATE 5 MG TABLET PO PRN (21:22)
[2021-09-05] MEDS: ATORVASTATIN CA 40 MG TABLET (FP) PO SCH (21:22)
[2021-09-05] MEDS: HYDROCORTISONE ACETATE 25 MG/SUPP.RECT PR SCH (21:23)
[2021-09-06] MEDS: NYSTATIN 500,000 UNITS/5 ML SUSPENSION PO SCH ×4 (00:23→17:21)
[2021-09-06] MEDS: methylPREDNISolone NA SUCC 40 MG/1 ML VIAL IVPUSH SCH ×3 (02:22→17:22)
[2021-09-06] MEDS: MAG HYDROX/ALH/SMC/DPHA/LIDO 240 ML MOUTHWASH MM SCH ×6 (02:22→21:16)
[2021-09-06] MEDS: MELATONIN 5 MG TABLETS PO PRN ×2 (03:04→21:03)
[2021-09-06] MEDS: guaiFENesin/D-M SUGAR-FREE/ACLHOL-FREE 118 ML BOTTLE PO PRN (03:04)
[2021-09-06] MEDS: GABAPENTIN 100 MG CAPSULE PO SCH ×3 (05:43→17:21)
[2021-09-06 07:26] LABS: HEMATOCRIT 29.7 % (35.4-49); HEMOGLOBIN 9.2 GM/dL (11.7-16.9); MCH 24.5 pg (25.7-33.7); MCHC 30.8 g/dl (32.0-35.9); MEAN CELL VOLUME 79.5 fl (80-96); MEAN PLT VOLUME 8.2 fl (7.5-11.1); PLATELET COUNT 242 10^3/uL (134-434); RBC 3.74 M/mm3 (4.00-5.60); RDW 25.2 % (11.9-15.9)
[2021-09-06 07:56] LABS: ALBUMIN 2.8 g/dl (3.4-5.0); BLOOD UREA NITROGEN 21.5 mg/dL (7-18); CALCIUM 8.3 mg/dL (8.5-10.1); MAGNESIUM 2.6 mg/dL (1.8-2.4)
[2021-09-06 07:59] LABS: CREATININE 0.9 mg/dL (0.55-1.3); PHOSPHOROUS 2.7 mg/dL (2.5-4.9)
[2021-09-06 08:00] LABS: BILIRUBIN,TOTAL 0.3 mg/dL (0.2-1); TOT PROT 5.5 g/dl (6.4-8.2)
[2021-09-06 09:11] LABS: ANISOCYTOSIS 3+; MACROCYTOSIS 0
[2021-09-06] MEDS: metoPROLOL SUCCINATE 25 MG TAB.SR.24H (FP) PO SCH (10:19)
[2021-09-06] MEDS: EZETIMIBE 10 MG TABLET (FP) PO SCH (10:19)
[2021-09-06] MEDS: TIOTROPIUM BROMIDE 2.5 MCG (SPIRIVA) RESPIMAT INHALER IH SCH (10:20)
[2021-09-06] MEDS: FAMOTIDINE 20 MG/50 ML IVPB 20 MG/50 ML MG IVPB SCH ×2 (10:20→21:01)
[2021-09-06] MEDS: BUDESONIDE/FORMETEROL FUMARATE 160/4.5 mcg INHALER IH SCH ×2 (10:20→21:15)
[2021-09-06] MEDS: ALBUTEROL SO4 0.083% IH SOL 2.5 MG/3 ML VIAL.NEB. NEB PRN ×3 (12:00→23:20)
[2021-09-06] MEDS: RIVAROXABAN 20 MG TABLET PO SCH (17:22)
[2021-09-06] MEDS: traMADol HCL 50 MG TABLET PO PRN (21:01)
[2021-09-06] MEDS: ATORVASTATIN CA 40 MG TABLET (FP) PO SCH (21:02)
[2021-09-06] MEDS: HYDROCORTISONE ACETATE 25 MG/SUPP.RECT PR SCH (21:16)
[2021-09-06] MEDS: GABAPENTIN 300 MG CAPSULE PO SCH (21:17)
[2021-09-07] MEDS: guaiFENesin/D-M SUGAR-FREE/ACLHOL-FREE 118 ML BOTTLE PO PRN (02:15)
[2021-09-07] MEDS: NYSTATIN 500,000 UNITS/5 ML SUSPENSION PO SCH ×5 (02:15→23:59)
[2021-09-07] MEDS: methylPREDNISolone NA SUCC 40 MG/1 ML VIAL IVPUSH SCH ×3 (02:15→17:12)
[2021-09-07] MEDS: MAG HYDROX/ALH/SMC/DPHA/LIDO 240 ML MOUTHWASH MM SCH ×6 (02:16→21:24)
[2021-09-07] MEDS: GABAPENTIN 100 MG CAPSULE PO SCH ×3 (05:49→17:12)
[2021-09-07 07:22] LABS: HEMOGLOBIN 8.4 GM/dL (11.7-16.9); MCH 24.4 pg (25.7-33.7); MEAN CELL VOLUME 78.7 fl (80-96); MEAN PLT VOLUME 8.2 fl (7.5-11.1); PLATELET COUNT 229 10^3/uL (134-434); RBC 3.43 M/mm3 (4.00-5.60); RDW 26.2 % (11.9-15.9)
[2021-09-07 07:35] LABS: ALBUMIN 2.7 g/dl (3.4-5.0); BLOOD UREA NITROGEN 22.5 mg/dL (7-18); CALCIUM 8.1 mg/dL (8.5-10.1); MAGNESIUM 2.5 mg/dL (1.8-2.4)
[2021-09-07 07:38] LABS: BILIRUBIN,TOTAL 0.3 mg/dL (0.2-1); CREATININE 0.9 mg/dL (0.55-1.3); PHOSPHOROUS 2.2 mg/dL (2.5-4.9); TOT PROT 5.1 g/dl (6.4-8.2)
[2021-09-07 09:06] LABS: ANISOCYTOSIS 2+; MACROCYTOSIS 0; OVALOCYTE 2+
[2021-09-07] MEDS: metoPROLOL SUCCINATE 25 MG TAB.SR.24H (FP) PO SCH (09:25)
[2021-09-07] MEDS: EZETIMIBE 10 MG TABLET (FP) PO SCH (09:25)
[2021-09-07] MEDS: FAMOTIDINE 20 MG/50 ML IVPB 20 MG/50 ML MG IVPB SCH ×2 (09:25→21:18)
[2021-09-07] MEDS: BUDESONIDE/FORMETEROL FUMARATE 160/4.5 mcg INHALER IH SCH ×2 (09:26→21:25)
[2021-09-07] MEDS: TIOTROPIUM BROMIDE 2.5 MCG (SPIRIVA) RESPIMAT INHALER IH SCH (10:55)
[2021-09-07] MEDS ORDERED: NAPH,MB-DB/K PH,MBDB POWDER PACKET PO ONE (11:00)
[2021-09-07] MEDS: guaiFENesin/D-M SUGAR-FREE/ACLHOL-FREE 5 ML UNIT DOSE PO PRN (14:59)
[2021-09-07] MEDS: ALBUTEROL SO4 0.083% IH SOL 2.5 MG/3 ML VIAL.NEB. NEB PRN ×2 (15:20→20:40)
[2021-09-07] MEDS: ROFLUMILAST 500 MCG TABLET PO SCH (16:13)
[2021-09-07] MEDS: RIVAROXABAN 20 MG TABLET PO SCH (17:13)
[2021-09-07] MEDS: ATORVASTATIN CA 40 MG TABLET (FP) PO SCH (21:18)
[2021-09-07] MEDS: GABAPENTIN 300 MG CAPSULE PO SCH (21:18)
[2021-09-07] MEDS: MELATONIN 5 MG TABLETS PO PRN (21:18)
[2021-09-07] MEDS: MONTELUKAST NA 10 MG TABLET PO SCH (21:18)
[2021-09-07] MEDS: ZOLPIDEM TARTRATE 5 MG TABLET PO PRN (21:18)
[2021-09-07] MEDS: HYDROCORTISONE ACETATE 25 MG/SUPP.RECT PR SCH (21:19)
[2021-09-08] MEDS: methylPREDNISolone NA SUCC 40 MG/1 ML VIAL IVPUSH SCH ×3 (01:45→17:47)
[2021-09-08] MEDS: MAG HYDROX/ALH/SMC/DPHA/LIDO 240 ML MOUTHWASH MM SCH ×6 (01:45→21:24)
[2021-09-08] MEDS: NYSTATIN 500,000 UNITS/5 ML SUSPENSION PO SCH ×3 (05:23→17:46)
[2021-09-08] MEDS: GABAPENTIN 100 MG CAPSULE PO SCH ×3 (05:23→17:40)
[2021-09-08 08:21] LABS: BASO % 0.1 % (0-2.0); HEMATOCRIT 26.4 % (35.4-49); HEMOGLOBIN 8.2 GM/dL (11.7-16.9); LYMPH % 2.5 % (8-40); MCH 24.5 pg (25.7-33.7); MCHC 30.9 g/dl (32.0-35.9); MEAN CELL VOLUME 79.4 fl (80-96); MEAN PLT VOLUME 8.8 fl (7.5-11.1); MONO % 3.7 % (3.8-10.2); NEUT % 93.7 % (42.8-82.8); PLATELET COUNT 215 10^3/uL (134-434); RBC 3.32 M/mm3 (4.00-5.60); RDW 26.5 % (11.9-15.9); WHITE BLOOD COUNT 14.8 K/mm3 (4.0-10.0)
[2021-09-08 08:53] LABS: ALBUMIN 2.6 g/dl (3.4-5.0); BLOOD UREA NITROGEN 18.6 mg/dL (7-18); CALCIUM 8.3 mg/dL (8.5-10.1)
[2021-09-08 08:54] LABS: MAGNESIUM 2.6 mg/dL (1.8-2.4)
[2021-09-08 08:56] LABS: PHOSPHOROUS 2.5 mg/dL (2.5-4.9); TOT PROT 4.9 g/dl (6.4-8.2)
[2021-09-08 08:57] LABS: CREATININE 0.8 mg/dL (0.55-1.3)
[2021-09-08 08:58] LABS: BILIRUBIN,TOTAL 0.3 mg/dL (0.2-1)
[2021-09-08] MEDS: metoPROLOL SUCCINATE 25 MG TAB.SR.24H (FP) PO SCH (09:32)
[2021-09-08] MEDS: EZETIMIBE 10 MG TABLET (FP) PO SCH (09:32)
[2021-09-08] MEDS: FAMOTIDINE 20 MG/50 ML IVPB 20 MG/50 ML MG IVPB SCH ×2 (09:32→21:23)
[2021-09-08] MEDS: ROFLUMILAST 500 MCG TABLET PO SCH (09:32)
[2021-09-08] MEDS: BUDESONIDE/FORMETEROL FUMARATE 160/4.5 mcg INHALER IH SCH ×2 (09:45→21:24)
[2021-09-08] MEDS: TIOTROPIUM BROMIDE 2.5 MCG (SPIRIVA) RESPIMAT INHALER IH SCH (09:46)
[2021-09-08 11:14] LABS: ANISOCYTOSIS 2+; MACROCYTOSIS 1+
[2021-09-08] MEDS: guaiFENesin/D-M SUGAR-FREE/ACLHOL-FREE 5 ML UNIT DOSE PO PRN ×2 (11:46→18:26)
[2021-09-08] MEDS: RIVAROXABAN 20 MG TABLET PO SCH (17:48)
[2021-09-08] MEDS: GABAPENTIN 300 MG CAPSULE PO SCH (21:23)
[2021-09-08] MEDS: HYDROCORTISONE ACETATE 25 MG/SUPP.RECT PR SCH (21:23)
[2021-09-08] MEDS: ATORVASTATIN CA 40 MG TABLET (FP) PO SCH (21:23)
[2021-09-08] MEDS: MONTELUKAST NA 10 MG TABLET PO SCH (21:24)
[2021-09-08] MEDS: ZOLPIDEM TARTRATE 5 MG TABLET PO PRN (21:25)
[2021-09-08] MEDS: MELATONIN 5 MG TABLETS PO PRN (21:25)
[2021-09-08] MEDS: traMADol HCL 50 MG TABLET PO PRN (21:34)
[2021-09-08] MEDS: ALBUTEROL SO4 0.083% IH SOL 2.5 MG/3 ML VIAL.NEB. NEB PRN (21:45)
[2021-09-09] MEDS: NYSTATIN 500,000 UNITS/5 ML SUSPENSION PO SCH ×4 (00:23→17:29)
[2021-09-09] MEDS: MAG HYDROX/ALH/SMC/DPHA/LIDO 240 ML MOUTHWASH MM SCH ×6 (01:03→21:27)
[2021-09-09] MEDS: methylPREDNISolone NA SUCC 40 MG/1 ML VIAL IVPUSH SCH ×3 (01:03→17:34)
[2021-09-09] MEDS: GABAPENTIN 100 MG CAPSULE PO SCH ×3 (05:14→17:30)
[2021-09-09] MEDS: ALBUTEROL SO4 0.083% IH SOL 2.5 MG/3 ML VIAL.NEB. NEB PRN ×3 (07:25→15:31)
[2021-09-09] MEDS ORDERED: IRON SUCROSE INJECTION 300 MG in SODIUM CHLORIDE 250 ML IVPB ONE (07:50)
[2021-09-09 08:34] LABS: HEMATOCRIT 28.2 % (35.4-49); HEMOGLOBIN 8.8 GM/dL (11.7-16.9); MCH 24.5 pg (25.7-33.7); MEAN CELL VOLUME 79.1 fl (80-96); MEAN PLT VOLUME 8.3 fl (7.5-11.1); PLATELET COUNT 224 10^3/uL (134-434); RBC 3.57 M/mm3 (4.00-5.60); RDW 26.2 % (11.9-15.9)
[2021-09-09 08:45] LABS: ALBUMIN 2.8 g/dl (3.4-5.0); CALCIUM 8.1 mg/dL (8.5-10.1)
[2021-09-09 08:46] LABS: BLOOD UREA NITROGEN 23.6 mg/dL (7-18); MAGNESIUM 2.7 mg/dL (1.8-2.4)
[2021-09-09 08:48] LABS: CREATININE 0.8 mg/dL (0.55-1.3); PHOSPHOROUS 2.9 mg/dL (2.5-4.9)
[2021-09-09 08:50] LABS: BILIRUBIN,TOTAL 0.3 mg/dL (0.2-1)
[2021-09-09] MEDS: ROFLUMILAST 500 MCG TABLET PO SCH (09:58)
[2021-09-09] MEDS: metoPROLOL SUCCINATE 25 MG TAB.SR.24H (FP) PO SCH (09:58)
[2021-09-09] MEDS: FAMOTIDINE 20 MG/50 ML IVPB 20 MG/50 ML MG IVPB SCH (09:58)
[2021-09-09] MEDS: EZETIMIBE 10 MG TABLET (FP) PO SCH (09:58)
[2021-09-09] MEDS: BUDESONIDE/FORMETEROL FUMARATE 160/4.5 mcg INHALER IH SCH ×2 (10:02→21:28)
[2021-09-09] MEDS: TIOTROPIUM BROMIDE 2.5 MCG (SPIRIVA) RESPIMAT INHALER IH SCH (10:10)
[2021-09-09 10:38] LABS: ANISOCYTOSIS 3+; MACROCYTOSIS 0; OVALOCYTE 0
[2021-09-09] MEDS: guaiFENesin/D-M SUGAR-FREE/ACLHOL-FREE 5 ML UNIT DOSE PO PRN (12:55)
[2021-09-09] MEDS: RIVAROXABAN 20 MG TABLET PO SCH (17:29)
[2021-09-09] MEDS: HYDROCORTISONE ACETATE 25 MG/SUPP.RECT PR SCH (21:26)
[2021-09-09] MEDS: MONTELUKAST NA 10 MG TABLET PO SCH (21:26)
[2021-09-09] MEDS: ATORVASTATIN CA 40 MG TABLET (FP) PO SCH (21:26)
[2021-09-09] MEDS: GABAPENTIN 300 MG CAPSULE PO SCH (21:27)
[2021-09-09] MEDS: MELATONIN 5 MG TABLETS PO PRN (21:27)
[2021-09-09] MEDS: FAMOTIDINE 20 MG TABLET PO SCH (21:27)
[2021-09-09] MEDS: ZOLPIDEM TARTRATE 5 MG TABLET PO PRN (21:30)
[2021-09-10] MEDS: NYSTATIN 500,000 UNITS/5 ML SUSPENSION PO SCH ×3 (00:45→14:29)
[2021-09-10] MEDS: MAG HYDROX/ALH/SMC/DPHA/LIDO 240 ML MOUTHWASH MM SCH ×2 (01:29→05:58)
[2021-09-10] MEDS: methylPREDNISolone NA SUCC 40 MG/1 ML VIAL IVPUSH SCH ×2 (01:29→10:20)
[2021-09-10] MEDS: guaiFENesin/D-M SUGAR-FREE/ACLHOL-FREE 5 ML UNIT DOSE PO PRN ×2 (01:31→10:32)
[2021-09-10] MEDS: GABAPENTIN 100 MG CAPSULE PO SCH ×2 (05:58→14:29)
[2021-09-10 08:09] LABS: HEMATOCRIT 27.6 % (35.4-49); HEMOGLOBIN 8.5 GM/dL (11.7-16.9); MCHC 30.6 g/dl (32.0-35.9); MEAN CELL VOLUME 78.4 fl (80-96); MEAN PLT VOLUME 8.4 fl (7.5-11.1); PLATELET COUNT 219 10^3/uL (134-434); RBC 3.52 M/mm3 (4.00-5.60); RDW 26.3 % (11.9-15.9); WHITE BLOOD COUNT 14.5 K/mm3 (4.0-10.0)
[2021-09-10 08:21] VITALS: TEMP 97.5
[2021-09-10 08:30] LABS: BLOOD UREA NITROGEN 20.1 mg/dL (7-18); CALCIUM 8.2 mg/dL (8.5-10.1)
[2021-09-10 08:34] LABS: CREATININE 0.7 mg/dL (0.55-1.3)
[2021-09-10 09:53] LABS: ANISOCYTOSIS 1+; MACROCYTOSIS 0; TARGET CELLS 0; TEAR DROP CELLS 1+
[2021-09-10] MEDS: ROFLUMILAST 500 MCG TABLET PO SCH (10:20)
[2021-09-10] MEDS: metoPROLOL SUCCINATE 25 MG TAB.SR.24H (FP) PO SCH (10:20)
[2021-09-10] MEDS: EZETIMIBE 10 MG TABLET (FP) PO SCH (10:20)
[2021-09-10] MEDS: FAMOTIDINE 20 MG TABLET PO SCH (10:20)
[2021-09-10] MEDS: TIOTROPIUM BROMIDE 2.5 MCG (SPIRIVA) RESPIMAT INHALER IH SCH (10:25)
[2021-09-10] MEDS: BUDESONIDE/FORMETEROL FUMARATE 160/4.5 mcg INHALER IH SCH (10:25)
[2021-09-10 13:18] VITALS: BP 113/60; PULSE 72; RESP 24
[2021-09-10] MEDS ORDERED: IRON SUCROSE INJECTION 300 MG in SODIUM CHLORIDE 235 ML IVPB ONE (15:15)
[2021-09-16] MEDS ORDERED: CYANOCOBALAMIN (VITAMIN B-12) 1000 MCG/1 ML VIAL IM SCH (10:00)
== END 2021-09-10 19:00 | disposition home or self-care (01) | DRG 394 ==
LOC: JER 14:55 → JERBED 17:25 → J6S 08-23 00:56 → J2W 09-03 21:54
PROVIDERS: ADMIT Internal Medicine; ATTEND Internal Medicine
PROC: 30233N1 Transfusion of Nonautologous Red Blood Cells into Peripheral Vein, Percutaneous Approach (ICD-10-PCS; principal; 2021-08-22)
PROC: 0CJS8ZZ Inspection of Larynx, Via Natural or Artificial Opening Endoscopic (ICD-10-PCS; 2021-08-22)
DX: K64.8 Other hemorrhoids (principal); J44.1 Chronic obstructive pulmonary disease with (acute) exacerbation; E87.2 Acidosis; B37.81 Candidal esophagitis; J96.11 Chronic respiratory failure with hypoxia; I24.8 Other forms of acute ischemic heart disease; K92.2 Gastrointestinal hemorrhage, unspecified; D68.32 Hemorrhagic disorder due to extrinsic circulating anticoagulants; D50.0 Iron deficiency anemia secondary to blood loss (chronic); I10 Essential (primary) hypertension; J44.9 Chronic obstructive pulmonary disease, unspecified; K14.0 Glossitis; N40.0 Benign prostatic hyperplasia without lower urinary tract symptoms; K57.90 Diverticulosis of intestine, part unspecified, without perforation or abscess without bleeding; K31.84 Gastroparesis; K63.5 Polyp of colon; E78.5 Hyperlipidemia, unspecified; L40.9 Psoriasis, unspecified; D72.829 Elevated white blood cell count, unspecified; G47.00 Insomnia, unspecified; I48.0 Paroxysmal atrial fibrillation; R07.1 Chest pain on breathing; R13.10 Dysphagia, unspecified; R49.0 Dysphonia; J06.0 Acute laryngopharyngitis; E66.9 Obesity, unspecified; Z68.25 Body mass index [BMI] 25.0-25.9, adult; Z85.46 Personal history of malignant neoplasm of prostate
CPT/HCPCS: 0241U-QW; 36415; 36430; 71045-TC-FY; 71275-TC; 74175-TC; 80048; 80053; 80061; 82136; 82272; 82607; 82803; 82962; 83540; 83550; 83605; 83615; 83735; 83880; 83918; 84100; 84466; 84484; 85025; 85027; 85045; 85610; 85730; 86850; 86900; 86901; 86922; 87040; 93005; 93010; 93306-TC; 94640; 94761; 97116-GP; 97162-GP; 99285-25; C9803-CS; J1100; J1756; P9058; Q9967; U0003; U0005

== ENCOUNTER 2022-08-03 19:30 | Emergency (ER) | payer OTHER, BC ==
[2022-08-03 19:40] VITALS: TEMP 97.6; BMI 24.4
[2022-08-03] MEDS ORDERED: ALBUTEROL SO4 2.5/IPRATROPIUM 0.5 INH SOL 3 ML VIAL.NEB. NEB ONE ×2 (19:40→19:47)
[2022-08-03] MEDS ORDERED: ACETAMINOPHEN 1000 MG/100 ML BAG IVPB ONE (19:40)
[2022-08-03] MEDS ORDERED: ACETAMINOPHEN INJECTION 100 ML IVPB ONE (19:47)
[2022-08-03] MEDS ORDERED: AZITHROMYCIN IVPB 500 MG in DEXTROSE 5%-WATER - 250 ML IVPB ONE (19:55)
[2022-08-03 20:16] LABS: HEMATOCRIT 30.8 % (35.4-49); MCHC 32.6 g/dl (32.0-35.9); MEAN CELL VOLUME 89.1 fl (80-96); MEAN PLT VOLUME 6.7 fl (7.5-11.1); PLATELET COUNT 340 10^3/uL (134-434); RBC 3.46 M/mm3 (4.00-5.60); RDW 16.2 % (11.9-15.9); WHITE BLOOD COUNT 8.6 K/mm3 (4.0-10.0)
[2022-08-03 20:17] LABS: VENOUS BASE EXCESS -3.5 mmol/L (-2-2); VENOUS O2 SATURATION 44.6 % (70-80); VENOUS PCO2 34.3 mmHg (38-52); VENOUS PH 7.399 (7.310-7.410)
[2022-08-03 20:24] LABS: INR 1.17 (0.83-1.09); PROTHROMBIN TIME (PATIENT) 13.5 SEC (9.7-13.0)
[2022-08-03] MEDS ORDERED: AZITHROMYCIN IVPB 500 MG/250 ML BAG IVPB ONE (20:26)
[2022-08-03 20:27] LABS: ACTIVATED PTT 26.2 SECONDS (25.2-36.5)
[2022-08-03 20:30] LABS: POTASSIUM 4.3 mmol/L (3.5-5.1)
[2022-08-03 20:32] LABS: CALCIUM 9.2 mg/dL (8.5-10.1)
[2022-08-03 20:33] LABS: ALBUMIN 3.5 g/dl (3.4-5.0)
[2022-08-03 20:36] LABS: CREATININE 1.2 mg/dL (0.55-1.3)
[2022-08-03 20:37] LABS: BILIRUBIN,TOTAL 0.7 mg/dL (0.2-1)
[2022-08-03 20:40] LABS: URINE APPEARANCE CLEAR; URINE BILIRUBIN NEGATIVE (NEGATIVE); URINE COLOR YELLOW; URINE GLUCOSE (UA) NEGATIVE (NEGATIVE); URINE KETONE 1+ (NEGATIVE); URINE LEUK ESTERASE NEGATIVE (NEGATIVE); URINE NITRITE NEGATIVE (NEGATIVE); URINE PROTEIN NEGATIVE (NEGATIVE); URINE UROBILINOGEN 0.2 mg/dL (0.2-1.0)
[2022-08-03 20:45] LABS: LACTIC ACID 3.4 mmol/L (0.4-2.0)
[2022-08-03] MEDS ORDERED: SODIUM CHLORIDE 1,000 ML IV STA (20:54)
[2022-08-03 21:01] LABS: ANISOCYTOSIS 2+; MACROCYTOSIS 1+; OVALOCYTE 1+
[2022-08-03 23:14] VITALS: BP 129/85; PULSE 72; RESP 13
[2022-08-04 00:30] LABS: LACTIC ACID 2.3 mmol/L (0.4-2.0)
== END 2022-08-04 01:18 | disposition home or self-care (01) ==
LOC: JER 19:30
PROC: 3E03329 Introduction of Other Anti-infective into Peripheral Vein, Percutaneous Approach (ICD-10-PCS; principal; 2022-08-03)
PROC: 3E033NZ Introduction of Analgesics, Hypnotics, Sedatives into Peripheral Vein, Percutaneous Approach (ICD-10-PCS; 2022-08-03)
PROC: 3E0337Z Introduction of Electrolytic and Water Balance Substance into Peripheral Vein, Percutaneous Approach (ICD-10-PCS; 2022-08-03)
PROC: 3E0F7GC Introduction of Other Therapeutic Substance into Respiratory Tract, Via Natural or Artificial Opening (ICD-10-PCS; 2022-08-03)
DX: R10.9 Unspecified abdominal pain (principal); K40.90 Unilateral inguinal hernia, without obstruction or gangrene, not specified as recurrent; R06.02 Shortness of breath; R14.0 Abdominal distension (gaseous); Z20.822 Contact with and (suspected) exposure to COVID-19
CPT/HCPCS: 0241U-QW; 36415; 71045-TC-FY; 74177-TC; 80053; 81003; 82803; 83605; 83690; 84153; 84484; 85025; 85610; 85730; 87086; 93005; 93010; 99285-25; Q9967

== ENCOUNTER 2022-09-20 15:58 | Inpatient (IN) | payer OTHER, BC ==
[2022-09-20] MEDS ORDERED: methylPREDNISolone NA SUCC 125 MG/2 ML VIAL IVPB ONE (16:56)
[2022-09-20] MEDS ORDERED: ALBUTEROL SO4 2.5/IPRATROPIUM 0.5 INH SOL 3 ML VIAL.NEB. NEB SCH (17:00)
[2022-09-20] MEDS: ALBUTEROL SO4 2.5/IPRATROPIUM 0.5 INH SOL 3 ML VIAL.NEB. NEB SCH ×2 (17:00→17:16)
[2022-09-20] MEDS ORDERED: methylPREDNISolone NA SUCC 125 MG/2 ML VIAL ONE (17:01)
[2022-09-20 17:44] LABS: BASO % 0.1 % (0-2.0); HEMATOCRIT 30.2 % (35.4-49); HEMOGLOBIN 9.3 GM/dL (11.7-16.9); LYMPH % 2.7 % (8-40); MCH 25.7 pg (25.7-33.7); MCHC 30.8 g/dl (32.0-35.9); MEAN CELL VOLUME 83.3 fl (80-96); MEAN PLT VOLUME 7.8 fl (7.5-11.1); MONO % 4.6 % (3.8-10.2); NEUT % 92.6 % (42.8-82.8); PLATELET COUNT 173 10^3/uL (134-434); RBC 3.62 M/mm3 (4.00-5.60); RDW 19.2 % (11.9-15.9); WHITE BLOOD COUNT 11.6 K/mm3 (4.0-10.0)
[2022-09-20 18:09] LABS: POTASSIUM 4.6 mmol/L (3.5-5.1)
[2022-09-20 18:10] LABS: BLOOD UREA NITROGEN 12.9 mg/dL (7-18); CALCIUM 8.8 mg/dL (8.5-10.1)
[2022-09-20 18:11] LABS: ALBUMIN 3.2 g/dl (3.4-5.0)
[2022-09-20 18:14] LABS: CREATININE 0.9 mg/dL (0.55-1.3)
[2022-09-20 18:15] LABS: BILIRUBIN,TOTAL 0.3 mg/dL (0.2-1); TOT PROT 5.8 g/dl (6.4-8.2)
[2022-09-20 18:24] LABS: MAGNESIUM 2.4 mg/dL (1.8-2.4)
[2022-09-20] MEDS ORDERED: HEPARIN NA (PORCINE) 5,000 UNITS/ML 1ML VIAL IVPUSH ONE (20:07)
[2022-09-20] MEDS ORDERED: HEPARIN NA (PORCINE) 5,000 UNITS/ML 1ML VIAL IVPUSH PRN ×2 (20:07)
[2022-09-20] MEDS ORDERED: CEFTRIAXONE 1 GM in DEXTROSE 5%-WATER - 100 ML IVPB ONE (20:09)
[2022-09-20] MEDS ORDERED: AZITHROMYCIN IVPB 500 MG in DEXTROSE 5%-WATER - 250 ML IVPB ONE (20:09)
[2022-09-20 20:26] LABS: INR 1.03 (0.83-1.09); PROTHROMBIN TIME (PATIENT) 11.9 SEC (9.7-13.0)
[2022-09-20 20:29] LABS: ACTIVATED PTT 22.1 SECONDS (25.2-36.5)
[2022-09-20] MEDS ORDERED: AZITHROMYCIN IVPB 500 MG/250 ML BAG IVPB ONE (20:50)
[2022-09-20] MEDS ORDERED: CEFTRIAXONE 1 GM/50 ML BAG ONE (20:50)
[2022-09-20] MEDS ORDERED: HEPARIN INFUSION - 25,000 UNITS/500 ML INFUS.BAG IVPB ONE (20:51)
[2022-09-20] MEDS ORDERED: HEPARIN NA (PORCINE) 5,000 UNITS/ML 1ML VIAL ONE (20:51)
[2022-09-20] MEDS: HEPARIN INFUSION - 25,000 UNITS/500 ML INFUS.BAG IVPB SCH (21:57)
[2022-09-20] MEDS ORDERED: ALBUTEROL SO4 0.083% IH SOL 2.5 MG/3 ML VIAL.NEB. NEB PRN (22:24)
[2022-09-20] MEDS ORDERED: ZOLPIDEM TARTRATE 5 MG TABLET PO PRN (22:29)
[2022-09-20] MEDS ORDERED: ZOLPIDEM TARTRATE 5 MG TABLET ONE (23:17)
[2022-09-21] MEDS ORDERED: methylPREDNISolone NA SUCC 40 MG/1 ML VIAL IVPUSH SCH (02:00)
[2022-09-21] MEDS: ROFLUMILAST 500 MCG TABLET PO SCH ×2 (03:24→19:38)
[2022-09-21 05:53] LABS: ARTERIAL BLOOD GAS BASE EXCESS 1.1 mmol/L (-2-2); ARTERIAL BLOOD GAS PO2 150.4 mmHg (80-100); ARTERIAL BLOOD GAS pH 7.426 (7.350-7.450)
[2022-09-21 06:12] LABS: ALLENS TEST POSITIVE
[2022-09-21] MEDS ORDERED: GABAPENTIN 100 MG CAPSULE ONE (06:17)
[2022-09-21] MEDS: GABAPENTIN 100 MG CAPSULE PO SCH ×3 (06:19→18:16)
[2022-09-21 07:54] LABS: HEMATOCRIT 29.9 % (35.4-49); HEMOGLOBIN 9.4 GM/dL (11.7-16.9); MCH 26.3 pg (25.7-33.7); MCHC 31.4 g/dl (32.0-35.9); MEAN PLT VOLUME 8.3 fl (7.5-11.1); PLATELET COUNT 181 10^3/uL (134-434); RBC 3.57 M/mm3 (4.00-5.60); WHITE BLOOD COUNT 11.3 K/mm3 (4.0-10.0)
[2022-09-21 09:04] LABS: ALBUMIN 2.9 g/dl (3.4-5.0); BILIRUBIN,TOTAL 0.5 mg/dL (0.2-1); BLOOD UREA NITROGEN 12.8 mg/dL (7-18); CALCIUM 8.7 mg/dL (8.5-10.1); CREATININE 0.8 mg/dL (0.55-1.3); POTASSIUM 4.3 mmol/L (3.5-5.1); TOT PROT 5.4 g/dl (6.4-8.2)
[2022-09-21] MEDS ORDERED: CEFTRIAXONE 1 GM in DEXTROSE 5%-WATER - 50 ML IVPB SCH (10:00)
[2022-09-21] MEDS ORDERED: AZITHROMYCIN IVPB 250 MG in DEXTROSE 5%-WATER - 250 ML IVPB SCH (10:00)
[2022-09-21] MEDS: predniSONE 20 MG TABLET (UD) PO SCH (10:04)
[2022-09-21] MEDS: EZETIMIBE 10 MG TABLET (FP) PO SCH (10:04)
[2022-09-21] MEDS: ASPIRIN COATED 81 MG TABLET.EC PO SCH (10:04)
[2022-09-21] MEDS: BUDESONIDE 0.5 MG/2 ML INH SUSP VIAL NEB SCH ×2 (10:15→20:40)
[2022-09-21 11:12] LABS: N-TERMINAL BNP 1225.3 pg/ml (5-125)
[2022-09-21] MEDS ORDERED: FUROSEMIDE 40 MG/4 ML INJECTABLE VIAL IVPUSH ONE (14:00)
[2022-09-21] MEDS: HEPARIN INFUSION - 25,000 UNITS/500 ML INFUS.BAG IVPB SCH (15:00)
[2022-09-21] MEDS: ALBUTEROL SO4 0.083% IH SOL 2.5 MG/3 ML VIAL.NEB. NEB SCH ×2 (16:08→20:40)
[2022-09-21 17:23] VITALS: BMI 24.1
[2022-09-21] MEDS: HYDROCORTISONE 2.5% TOPICAL CREAM 30 GM TUBE TP SCH (19:02)
[2022-09-21] MEDS: FLUTICASONE/UMECLIDIN/VILANTER(200-62.5-25 TRELEGY ELLIPTA) INAHLER IH SCH (19:37)
[2022-09-21] MEDS ORDERED: PATIENT'S OWN MEDICATION (NON-FORMULARY) (Zolpidem Tartrate 10 MG Tablet) PO SCH (22:00)
[2022-09-21] MEDS: ATORVASTATIN CA 40 MG TABLET (FP) PO SCH (22:09)
[2022-09-21] MEDS: GABAPENTIN 300 MG CAPSULE PO SCH (22:09)
[2022-09-21] MEDS: MONTELUKAST NA 10 MG TABLET PO SCH (22:09)
[2022-09-21] MEDS: ZOLPIDEM TARTRATE 5 MG TABLET PO PRN (22:09)
[2022-09-21] MEDS: AZTREONAM 1 GM in DEXTROSE 5%-WATER - 50 ML IVPB SCH (22:09)
[2022-09-22] MEDS: AZTREONAM 1 GM in DEXTROSE 5%-WATER - 50 ML IVPB SCH ×3 (04:00→17:14)
[2022-09-22] MEDS: GABAPENTIN 100 MG CAPSULE PO SCH ×3 (06:16→17:14)
[2022-09-22] MEDS: BUDESONIDE 0.5 MG/2 ML INH SUSP VIAL NEB SCH ×2 (07:48→20:20)
[2022-09-22] MEDS: ALBUTEROL SO4 0.083% IH SOL 2.5 MG/3 ML VIAL.NEB. NEB SCH ×4 (07:49→20:19)
[2022-09-22] MEDS: predniSONE 20 MG TABLET (UD) PO SCH (09:08)
[2022-09-22] MEDS: EZETIMIBE 10 MG TABLET (FP) PO SCH (09:08)
[2022-09-22] MEDS: ASPIRIN COATED 81 MG TABLET.EC PO SCH (09:08)
[2022-09-22 09:09] LABS: HEMATOCRIT 30.6 % (35.4-49); HEMOGLOBIN 9.4 GM/dL (11.7-16.9); MCH 25.7 pg (25.7-33.7); MCHC 30.7 g/dl (32.0-35.9); MEAN CELL VOLUME 83.7 fl (80-96); MEAN PLT VOLUME 8.4 fl (7.5-11.1); PLATELET COUNT 213 10^3/uL (134-434); RBC 3.66 M/mm3 (4.00-5.60); RDW 18.9 % (11.9-15.9); WHITE BLOOD COUNT 13.4 K/mm3 (4.0-10.0)
[2022-09-22] MEDS: ROFLUMILAST 500 MCG TABLET PO SCH (09:09)
[2022-09-22] MEDS: FLUTICASONE/UMECLIDIN/VILANTER(200-62.5-25 TRELEGY ELLIPTA) INAHLER IH SCH (09:10)
[2022-09-22] MEDS: HYDROCORTISONE 2.5% TOPICAL CREAM 30 GM TUBE TP SCH (09:11)
[2022-09-22 09:22] LABS: POTASSIUM 3.7 mmol/L (3.5-5.1)
[2022-09-22 09:35] LABS: ALBUMIN 2.8 g/dl (3.4-5.0)
[2022-09-22 09:38] LABS: BLOOD UREA NITROGEN 19.4 mg/dL (7-18); CALCIUM 8.4 mg/dL (8.5-10.1); MAGNESIUM 2.7 mg/dL (1.8-2.4)
[2022-09-22 09:40] LABS: CREATININE 0.7 mg/dL (0.55-1.3); PHOSPHOROUS 2.6 mg/dL (2.5-4.9)
[2022-09-22 09:41] LABS: BILIRUBIN,TOTAL 0.7 mg/dL (0.2-1); TOT PROT 5.3 g/dl (6.4-8.2)
[2022-09-22] MEDS: HEPARIN INFUSION - 25,000 UNITS/500 ML INFUS.BAG IVPB SCH (11:57)
[2022-09-22] MEDS ORDERED: POLYETHYLENE GLYCOL (HEALTHYLAX) 3350 17 GM PACKET PO ONE (17:15)
[2022-09-22] MEDS ORDERED: AZTREONAM 1 GM in DEXTROSE 5%-WATER - 50 ML IVPB SCH (18:00)
[2022-09-22] MEDS: ZOLPIDEM TARTRATE 5 MG TABLET PO PRN (21:39)
[2022-09-22] MEDS: GABAPENTIN 300 MG CAPSULE PO SCH (21:39)
[2022-09-22] MEDS: ATORVASTATIN CA 40 MG TABLET (FP) PO SCH (21:39)
[2022-09-22] MEDS: MONTELUKAST NA 10 MG TABLET PO SCH (21:39)
[2022-09-22] MEDS ORDERED: MELATONIN 5 MG TABLETS PO ONE (21:57)
[2022-09-23] MEDS: AZTREONAM 1 GM in DEXTROSE 5%-WATER - 50 ML IVPB SCH ×3 (03:43→17:12)
[2022-09-23] MEDS: GABAPENTIN 100 MG CAPSULE PO SCH ×3 (06:37→17:12)
[2022-09-23 08:20] LABS: HEMATOCRIT 29.2 % (35.4-49); HEMOGLOBIN 9.1 GM/dL (11.7-16.9); MCH 25.9 pg (25.7-33.7); MCHC 31.3 g/dl (32.0-35.9); MEAN CELL VOLUME 82.6 fl (80-96); MEAN PLT VOLUME 7.9 fl (7.5-11.1); PLATELET COUNT 216 10^3/uL (134-434); RBC 3.53 M/mm3 (4.00-5.60); RDW 18.9 % (11.9-15.9); WHITE BLOOD COUNT 11.3 K/mm3 (4.0-10.0)
[2022-09-23] MEDS: BUDESONIDE 0.5 MG/2 ML INH SUSP VIAL NEB SCH ×2 (08:32→20:27)
[2022-09-23] MEDS: ALBUTEROL SO4 0.083% IH SOL 2.5 MG/3 ML VIAL.NEB. NEB SCH ×4 (08:33→20:27)
[2022-09-23 09:01] LABS: BLOOD UREA NITROGEN 17.3 mg/dL (7-18); CALCIUM 8.7 mg/dL (8.5-10.1); CREATININE 0.8 mg/dL (0.55-1.3); MAGNESIUM 2.5 mg/dL (1.8-2.4); PHOSPHOROUS 2.2 mg/dL (2.5-4.9); POTASSIUM 4.2 mmol/L (3.5-5.1)
[2022-09-23] MEDS ORDERED: ALBUTEROL SO4 HFA INHALER IH PRN (09:23)
[2022-09-23] MEDS: ASPIRIN COATED 81 MG TABLET.EC PO SCH (09:46)
[2022-09-23] MEDS: predniSONE 20 MG TABLET (UD) PO SCH (09:46)
[2022-09-23] MEDS: ROFLUMILAST 500 MCG TABLET PO SCH (09:46)
[2022-09-23] MEDS: EZETIMIBE 10 MG TABLET (FP) PO SCH (09:46)
[2022-09-23] MEDS: HEPARIN INFUSION - 25,000 UNITS/500 ML INFUS.BAG IVPB SCH ×2 (09:47→21:55)
[2022-09-23] MEDS ORDERED: AZITHROMYCIN 250 MG TABLET PO SCH (10:00)
[2022-09-23] MEDS: HYDROCORTISONE 2.5% TOPICAL CREAM 30 GM TUBE TP SCH (13:47)
[2022-09-23] MEDS: FLUTICASONE/UMECLIDIN/VILANTER(200-62.5-25 TRELEGY ELLIPTA) INAHLER IH SCH (13:48)
[2022-09-23] MEDS ORDERED: NAPH,MB-DB/K PH,MBDB POWDER PACKET PO ONE (14:46)
[2022-09-23] MEDS ORDERED: APIXABAN 5 MG TABLET PO SCH (20:01)
[2022-09-23 20:19] LABS: HEMATOCRIT 31.5 % (35.4-49); HEMOGLOBIN 9.4 GM/dL (11.7-16.9); MCH 25.1 pg (25.7-33.7); MCHC 29.7 g/dl (32.0-35.9); MEAN CELL VOLUME 84.5 fl (80-96); MEAN PLT VOLUME 8.4 fl (7.5-11.1); PLATELET COUNT 210 10^3/uL (134-434); RBC 3.73 M/mm3 (4.00-5.60); RDW 18.6 % (11.9-15.9); WHITE BLOOD COUNT 12.1 K/mm3 (4.0-10.0)
[2022-09-23] MEDS: MONTELUKAST NA 10 MG TABLET PO SCH (22:00)
[2022-09-23] MEDS: ZOLPIDEM TARTRATE 5 MG TABLET PO PRN (22:00)
[2022-09-23] MEDS: ATORVASTATIN CA 40 MG TABLET (FP) PO SCH (22:00)
[2022-09-23] MEDS: GABAPENTIN 300 MG CAPSULE PO SCH (22:00)
[2022-09-23] MEDS ORDERED: MELATONIN 5 MG TABLETS PO ONE (23:55)
[2022-09-24] MEDS ORDERED: HEPARIN NA (PORCINE) 5,000 UNITS/ML 1ML VIAL IVPUSH PRN ×2 (00:32)
[2022-09-24] MEDS: HEPARIN INFUSION - 25,000 UNITS/500 ML INFUS.BAG IVPB SCH ×2 (01:00→13:55)
[2022-09-24] MEDS: AZTREONAM 1 GM in DEXTROSE 5%-WATER - 50 ML IVPB SCH ×3 (02:30→17:22)
[2022-09-24] MEDS: GABAPENTIN 100 MG CAPSULE PO SCH ×3 (06:04→17:22)
[2022-09-24] MEDS: BUDESONIDE 0.5 MG/2 ML INH SUSP VIAL NEB SCH ×2 (07:35→20:40)
[2022-09-24] MEDS: ALBUTEROL SO4 0.083% IH SOL 2.5 MG/3 ML VIAL.NEB. NEB SCH ×4 (07:42→20:40)
[2022-09-24 09:24] LABS: HEMOGLOBIN 8.5 GM/dL (11.7-16.9); MCH 25.4 pg (25.7-33.7); MCHC 30.5 g/dl (32.0-35.9); MEAN CELL VOLUME 83.1 fl (80-96); MEAN PLT VOLUME 7.8 fl (7.5-11.1); PLATELET COUNT 203 10^3/uL (134-434); RBC 3.37 M/mm3 (4.00-5.60); RDW 18.6 % (11.9-15.9); WHITE BLOOD COUNT 10.8 K/mm3 (4.0-10.0)
[2022-09-24 09:43] LABS: POTASSIUM 4.3 mmol/L (3.5-5.1)
[2022-09-24 09:49] LABS: CALCIUM 8.8 mg/dL (8.5-10.1)
[2022-09-24 09:50] LABS: ALBUMIN 2.7 g/dl (3.4-5.0); BLOOD UREA NITROGEN 17.3 mg/dL (7-18); MAGNESIUM 2.5 mg/dL (1.8-2.4)
[2022-09-24 09:53] LABS: CREATININE 0.7 mg/dL (0.55-1.3); PHOSPHOROUS 2.8 mg/dL (2.5-4.9)
[2022-09-24 09:54] LABS: TOT PROT 4.9 g/dl (6.4-8.2)
[2022-09-24 09:55] LABS: BILIRUBIN,TOTAL 0.3 mg/dL (0.2-1)
[2022-09-24] MEDS: predniSONE 20 MG TABLET (UD) PO SCH (10:01)
[2022-09-24] MEDS: EZETIMIBE 10 MG TABLET (FP) PO SCH (10:01)
[2022-09-24] MEDS: ROFLUMILAST 500 MCG TABLET PO SCH (10:02)
[2022-09-24] MEDS: ASPIRIN COATED 81 MG TABLET.EC PO SCH (10:02)
[2022-09-24] MEDS: HYDROCORTISONE 2.5% TOPICAL CREAM 30 GM TUBE TP SCH (10:04)
[2022-09-24] MEDS: FLUTICASONE/UMECLIDIN/VILANTER(200-62.5-25 TRELEGY ELLIPTA) INAHLER IH SCH (10:04)
[2022-09-24] MEDS: methylPREDNISolone NA SUCC 40 MG/1 ML VIAL IVPUSH SCH (17:24)
[2022-09-24] MEDS ORDERED: ACETAMINOPHEN 1000 MG/100 ML BAG IVPB ONE (19:59)
[2022-09-24] MEDS: GABAPENTIN 300 MG CAPSULE PO SCH (22:07)
[2022-09-24] MEDS: ENOXAPARIN NA (PORCINE) 80 MG/0.8 ML DISP.SYRIN SQ SCH (22:07)
[2022-09-24] MEDS: ATORVASTATIN CA 40 MG TABLET (FP) PO SCH (22:07)
[2022-09-24] MEDS: MONTELUKAST NA 10 MG TABLET PO SCH (22:08)
[2022-09-24] MEDS: ZOLPIDEM TARTRATE 5 MG TABLET PO PRN (22:08)
[2022-09-25] MEDS ORDERED: MELATONIN 5 MG TABLETS PO ONE (01:03)
[2022-09-25] MEDS: methylPREDNISolone NA SUCC 40 MG/1 ML VIAL IVPUSH SCH ×3 (01:34→17:12)
[2022-09-25] MEDS: AZTREONAM 1 GM in DEXTROSE 5%-WATER - 50 ML IVPB SCH ×3 (01:34→17:12)
[2022-09-25] MEDS: GABAPENTIN 100 MG CAPSULE PO SCH ×3 (06:29→17:12)
[2022-09-25 07:52] LABS: HEMATOCRIT 28.4 % (35.4-49); HEMOGLOBIN 8.8 GM/dL (11.7-16.9); MCH 26.2 pg (25.7-33.7); MCHC 30.9 g/dl (32.0-35.9); MEAN CELL VOLUME 84.7 fl (80-96); MEAN PLT VOLUME 8.4 fl (7.5-11.1); PLATELET COUNT 237 10^3/uL (134-434); RBC 3.36 M/mm3 (4.00-5.60); RDW 18.7 % (11.9-15.9); WHITE BLOOD COUNT 10.4 K/mm3 (4.0-10.0)
[2022-09-25] MEDS: BUDESONIDE 0.5 MG/2 ML INH SUSP VIAL NEB SCH ×2 (08:30→20:30)
[2022-09-25] MEDS: ALBUTEROL SO4 0.083% IH SOL 2.5 MG/3 ML VIAL.NEB. NEB SCH ×4 (08:35→20:30)
[2022-09-25 09:51] LABS: POTASSIUM 4.7 mmol/L (3.5-5.1)
[2022-09-25 10:02] LABS: PHOSPHOROUS 3.1 mg/dL (2.5-4.9)
[2022-09-25 10:03] LABS: ALBUMIN 2.7 g/dl (3.4-5.0)
[2022-09-25 10:07] LABS: BILIRUBIN,TOTAL 0.3 mg/dL (0.2-1)
[2022-09-25 10:10] LABS: MAGNESIUM 2.5 mg/dL (1.8-2.4)
[2022-09-25 10:11] LABS: TOT PROT 5.1 g/dl (6.4-8.2)
[2022-09-25 10:12] LABS: CREATININE 0.7 mg/dL (0.55-1.3)
[2022-09-25] MEDS: ENOXAPARIN NA (PORCINE) 80 MG/0.8 ML DISP.SYRIN SQ SCH ×2 (10:34→22:02)
[2022-09-25] MEDS: EZETIMIBE 10 MG TABLET (FP) PO SCH (10:35)
[2022-09-25] MEDS: ASPIRIN COATED 81 MG TABLET.EC PO SCH (10:35)
[2022-09-25] MEDS: ROFLUMILAST 500 MCG TABLET PO SCH (10:38)
[2022-09-25] MEDS: FLUTICASONE/UMECLIDIN/VILANTER(200-62.5-25 TRELEGY ELLIPTA) INAHLER IH SCH (10:38)
[2022-09-25] MEDS: HYDROCORTISONE 2.5% TOPICAL CREAM 30 GM TUBE TP SCH (10:39)
[2022-09-25] MEDS ORDERED: ALBUTEROL SO4 0.083% IH SOL 2.5 MG/3 ML VIAL.NEB. NEB ONE (11:29)
[2022-09-25] MEDS: MELATONIN 5 MG TABLETS PO SCH ×2 (22:02→22:16)
[2022-09-25] MEDS: ATORVASTATIN CA 40 MG TABLET (FP) PO SCH (22:02)
[2022-09-25] MEDS: MONTELUKAST NA 10 MG TABLET PO SCH (22:03)
[2022-09-25] MEDS: GABAPENTIN 300 MG CAPSULE PO SCH (22:03)
[2022-09-25] MEDS: ZOLPIDEM TARTRATE 5 MG TABLET PO PRN (22:03)
[2022-09-26] MEDS: AZTREONAM 1 GM in DEXTROSE 5%-WATER - 50 ML IVPB SCH ×3 (03:15→17:28)
[2022-09-26] MEDS: methylPREDNISolone NA SUCC 40 MG/1 ML VIAL IVPUSH SCH ×3 (03:15→17:28)
[2022-09-26] MEDS: GABAPENTIN 100 MG CAPSULE PO SCH ×3 (06:15→17:29)
[2022-09-26 07:46] LABS: HEMATOCRIT 25.9 % (35.4-49); MCH 25.5 pg (25.7-33.7); MCHC 30.8 g/dl (32.0-35.9); MEAN CELL VOLUME 82.8 fl (80-96); MEAN PLT VOLUME 8.3 fl (7.5-11.1); PLATELET COUNT 246 10^3/uL (134-434); RBC 3.13 M/mm3 (4.00-5.60); RDW 18.8 % (11.9-15.9); WHITE BLOOD COUNT 14.5 K/mm3 (4.0-10.0)
[2022-09-26] MEDS: BUDESONIDE 0.5 MG/2 ML INH SUSP VIAL NEB SCH ×2 (08:06→19:45)
[2022-09-26] MEDS: ALBUTEROL SO4 0.083% IH SOL 2.5 MG/3 ML VIAL.NEB. NEB SCH ×4 (08:07→19:45)
[2022-09-26 08:34] LABS: POTASSIUM 4.7 mmol/L (3.5-5.1)
[2022-09-26 08:38] LABS: BLOOD UREA NITROGEN 22.7 mg/dL (7-18); CALCIUM 8.8 mg/dL (8.5-10.1)
[2022-09-26 08:39] LABS: ALBUMIN 2.6 g/dl (3.4-5.0); MAGNESIUM 2.3 mg/dL (1.8-2.4)
[2022-09-26 08:42] LABS: CREATININE 0.7 mg/dL (0.55-1.3); PHOSPHOROUS 3.4 mg/dL (2.5-4.9)
[2022-09-26 08:43] LABS: TOT PROT 4.8 g/dl (6.4-8.2)
[2022-09-26 08:44] LABS: BILIRUBIN,TOTAL 0.3 mg/dL (0.2-1)
[2022-09-26] MEDS: FAMOTIDINE 20 MG TABLET PO SCH ×2 (10:13→21:29)
[2022-09-26] MEDS: ASPIRIN COATED 81 MG TABLET.EC PO SCH (10:13)
[2022-09-26] MEDS: EZETIMIBE 10 MG TABLET (FP) PO SCH (10:13)
[2022-09-26] MEDS: ENOXAPARIN NA (PORCINE) 80 MG/0.8 ML DISP.SYRIN SQ SCH ×2 (10:13→22:12)
[2022-09-26] MEDS: HYDROCORTISONE 2.5% TOPICAL CREAM 30 GM TUBE TP SCH (10:14)
[2022-09-26] MEDS: FLUTICASONE/UMECLIDIN/VILANTER(200-62.5-25 TRELEGY ELLIPTA) INAHLER IH SCH (10:15)
[2022-09-26] MEDS: ROFLUMILAST 500 MCG TABLET PO SCH (10:29)
[2022-09-26] MEDS: GABAPENTIN 300 MG CAPSULE PO SCH (21:29)
[2022-09-26] MEDS: MONTELUKAST NA 10 MG TABLET PO SCH (21:29)
[2022-09-26] MEDS: MELATONIN 5 MG TABLETS PO SCH (21:30)
[2022-09-26] MEDS: ATORVASTATIN CA 40 MG TABLET (FP) PO SCH (21:30)
[2022-09-26] MEDS ORDERED: ZOLPIDEM TARTRATE 5 MG TABLET PO ONE (21:42)
[2022-09-27] MEDS: methylPREDNISolone NA SUCC 40 MG/1 ML VIAL IVPUSH SCH ×3 (01:25→18:09)
[2022-09-27] MEDS: AZTREONAM 1 GM in DEXTROSE 5%-WATER - 50 ML IVPB SCH ×3 (01:30→18:09)
[2022-09-27] MEDS: GABAPENTIN 100 MG CAPSULE PO SCH ×3 (06:11→18:10)
[2022-09-27] MEDS: BUDESONIDE 0.5 MG/2 ML INH SUSP VIAL NEB SCH ×2 (07:40→20:05)
[2022-09-27] MEDS: ALBUTEROL SO4 0.083% IH SOL 2.5 MG/3 ML VIAL.NEB. NEB SCH ×4 (07:40→20:05)
[2022-09-27 07:49] LABS: HEMATOCRIT 26.3 % (35.4-49); HEMOGLOBIN 8.1 GM/dL (11.7-16.9); MCH 25.5 pg (25.7-33.7); MCHC 30.7 g/dl (32.0-35.9); MEAN CELL VOLUME 83.1 fl (80-96); MEAN PLT VOLUME 8.1 fl (7.5-11.1); PLATELET COUNT 268 10^3/uL (134-434); RBC 3.16 M/mm3 (4.00-5.60); RDW 18.6 % (11.9-15.9); WHITE BLOOD COUNT 15.1 K/mm3 (4.0-10.0)
[2022-09-27 08:15] LABS: POTASSIUM 4.2 mmol/L (3.5-5.1)
[2022-09-27 08:20] LABS: ALBUMIN 2.6 g/dl (3.4-5.0); BLOOD UREA NITROGEN 25.7 mg/dL (7-18); CALCIUM 8.5 mg/dL (8.5-10.1); MAGNESIUM 2.4 mg/dL (1.8-2.4)
[2022-09-27 08:23] LABS: CREATININE 0.7 mg/dL (0.55-1.3); PHOSPHOROUS 2.8 mg/dL (2.5-4.9)
[2022-09-27 08:24] LABS: BILIRUBIN,TOTAL 0.3 mg/dL (0.2-1); TOT PROT 4.9 g/dl (6.4-8.2)
[2022-09-27] MEDS: ENOXAPARIN NA (PORCINE) 80 MG/0.8 ML DISP.SYRIN SQ SCH ×2 (10:39→21:52)
[2022-09-27] MEDS: ROFLUMILAST 500 MCG TABLET PO SCH (10:42)
[2022-09-27] MEDS: EZETIMIBE 10 MG TABLET (FP) PO SCH (10:42)
[2022-09-27] MEDS: ASPIRIN COATED 81 MG TABLET.EC PO SCH (10:42)
[2022-09-27] MEDS: FAMOTIDINE 20 MG TABLET PO SCH ×2 (10:42→21:52)
[2022-09-27] MEDS: FLUTICASONE/UMECLIDIN/VILANTER(200-62.5-25 TRELEGY ELLIPTA) INAHLER IH SCH (10:43)
[2022-09-27] MEDS: HYDROCORTISONE 2.5% TOPICAL CREAM 30 GM TUBE TP SCH (10:43)
[2022-09-27] MEDS: ATORVASTATIN CA 40 MG TABLET (FP) PO SCH (21:52)
[2022-09-27] MEDS: MONTELUKAST NA 10 MG TABLET PO SCH (21:52)
[2022-09-27] MEDS: GABAPENTIN 300 MG CAPSULE PO SCH (21:52)
[2022-09-27] MEDS ORDERED: ZOLPIDEM TARTRATE 5 MG TABLET PO PRN (22:49)
[2022-09-27] MEDS: ZOLPIDEM TARTRATE 5 MG TABLET PO PRN (23:12)
[2022-09-28] MEDS ORDERED: MELATONIN 5 MG TABLETS PO ONE (00:25)
[2022-09-28] MEDS: methylPREDNISolone NA SUCC 40 MG/1 ML VIAL IVPUSH SCH ×3 (02:20→14:39)
[2022-09-28] MEDS: AZTREONAM 1 GM in DEXTROSE 5%-WATER - 50 ML IVPB SCH ×3 (03:07→17:15)
[2022-09-28] MEDS: GABAPENTIN 100 MG CAPSULE PO SCH ×3 (05:47→17:15)
[2022-09-28] MEDS: BUDESONIDE 0.5 MG/2 ML INH SUSP VIAL NEB SCH ×2 (08:10→21:42)
[2022-09-28] MEDS: ALBUTEROL SO4 0.083% IH SOL 2.5 MG/3 ML VIAL.NEB. NEB SCH ×4 (08:10→21:43)
[2022-09-28 08:15] LABS: HEMOGLOBIN 7.4 GM/dL (11.7-16.9); MCH 25.7 pg (25.7-33.7); MEAN CELL VOLUME 82.9 fl (80-96); MEAN PLT VOLUME 8.1 fl (7.5-11.1); PLATELET COUNT 265 10^3/uL (134-434); RDW 18.5 % (11.9-15.9); WHITE BLOOD COUNT 14.1 K/mm3 (4.0-10.0)
[2022-09-28 08:32] LABS: POTASSIUM 4.4 mmol/L (3.5-5.1)
[2022-09-28 08:34] LABS: CALCIUM 8.2 mg/dL (8.5-10.1)
[2022-09-28 08:35] LABS: ALBUMIN 2.5 g/dl (3.4-5.0); BLOOD UREA NITROGEN 26.8 mg/dL (7-18); MAGNESIUM 2.4 mg/dL (1.8-2.4)
[2022-09-28 08:38] LABS: CREATININE 0.7 mg/dL (0.55-1.3); PHOSPHOROUS 3.2 mg/dL (2.5-4.9)
[2022-09-28 08:39] LABS: BILIRUBIN,TOTAL 0.3 mg/dL (0.2-1)
[2022-09-28 08:40] LABS: TOT PROT 4.7 g/dl (6.4-8.2)
[2022-09-28] MEDS: FAMOTIDINE 20 MG TABLET PO SCH ×2 (09:57→21:46)
[2022-09-28] MEDS: ENOXAPARIN NA (PORCINE) 80 MG/0.8 ML DISP.SYRIN SQ SCH ×2 (09:57→21:46)
[2022-09-28] MEDS: ROFLUMILAST 500 MCG TABLET PO SCH (09:57)
[2022-09-28] MEDS: ASPIRIN COATED 81 MG TABLET.EC PO SCH (09:57)
[2022-09-28] MEDS: EZETIMIBE 10 MG TABLET (FP) PO SCH (09:57)
[2022-09-28] MEDS: FLUTICASONE/UMECLIDIN/VILANTER(200-62.5-25 TRELEGY ELLIPTA) INAHLER IH SCH (09:58)
[2022-09-28] MEDS: HYDROCORTISONE 2.5% TOPICAL CREAM 30 GM TUBE TP SCH (09:59)
[2022-09-28] MEDS: GABAPENTIN 300 MG CAPSULE PO SCH (21:46)
[2022-09-28] MEDS: ATORVASTATIN CA 40 MG TABLET (FP) PO SCH (21:46)
[2022-09-28 21:47] LABS: HEMATOCRIT 28.1 % (35.4-49); HEMOGLOBIN 8.7 GM/dL (11.7-16.9); MCH 25.9 pg (25.7-33.7); MCHC 31.1 g/dl (32.0-35.9); MEAN CELL VOLUME 83.2 fl (80-96); MEAN PLT VOLUME 7.9 fl (7.5-11.1); PLATELET COUNT 271 10^3/uL (134-434); RBC 3.38 M/mm3 (4.00-5.60); RDW 18.3 % (11.9-15.9); WHITE BLOOD COUNT 14.5 K/mm3 (4.0-10.0)
[2022-09-28] MEDS: MONTELUKAST NA 10 MG TABLET PO SCH (21:48)
[2022-09-28 22:13] LABS: ANISOCYTOSIS 3+; MACROCYTOSIS 0
[2022-09-28] MEDS: ZOLPIDEM TARTRATE 5 MG TABLET PO PRN (22:36)
[2022-09-29] MEDS: methylPREDNISolone NA SUCC 40 MG/1 ML VIAL IVPUSH SCH ×2 (01:37→13:55)
[2022-09-29] MEDS ORDERED: MELATONIN 5 MG TABLETS PO ONE ×2 (01:52→22:36)
[2022-09-29] MEDS: GABAPENTIN 100 MG CAPSULE PO SCH ×3 (06:53→17:45)
[2022-09-29 07:17] LABS: HEMATOCRIT 26.5 % (35.4-49); HEMOGLOBIN 8.3 GM/dL (11.7-16.9); MCHC 31.4 g/dl (32.0-35.9); MEAN CELL VOLUME 82.9 fl (80-96); MEAN PLT VOLUME 8.3 fl (7.5-11.1); PLATELET COUNT 273 10^3/uL (134-434); RDW 17.6 % (11.9-15.9)
[2022-09-29] MEDS: BUDESONIDE 0.5 MG/2 ML INH SUSP VIAL NEB SCH ×2 (08:08→20:37)
[2022-09-29] MEDS: ALBUTEROL SO4 0.083% IH SOL 2.5 MG/3 ML VIAL.NEB. NEB SCH ×4 (08:08→20:37)
[2022-09-29 08:31] LABS: POTASSIUM 3.9 mmol/L (3.5-5.1)
[2022-09-29 08:37] LABS: ALBUMIN 2.5 g/dl (3.4-5.0); BLOOD UREA NITROGEN 25.7 mg/dL (7-18); CALCIUM 8.3 mg/dL (8.5-10.1); MAGNESIUM 2.4 mg/dL (1.8-2.4)
[2022-09-29 08:40] LABS: CREATININE 0.7 mg/dL (0.55-1.3)
[2022-09-29 08:42] LABS: BILIRUBIN,TOTAL 0.3 mg/dL (0.2-1); TOT PROT 4.7 g/dl (6.4-8.2)
[2022-09-29] MEDS ORDERED: FAMOTIDINE 20 MG TABLET PO ONE (09:30)
[2022-09-29] MEDS: ROFLUMILAST 500 MCG TABLET PO SCH (09:32)
[2022-09-29] MEDS: ASPIRIN COATED 81 MG TABLET.EC PO SCH (09:32)
[2022-09-29] MEDS: FAMOTIDINE 20 MG TABLET PO SCH ×2 (09:32→21:38)
[2022-09-29] MEDS: ENOXAPARIN NA (PORCINE) 80 MG/0.8 ML DISP.SYRIN SQ SCH ×2 (09:32→21:37)
[2022-09-29] MEDS: HYDROCORTISONE 2.5% TOPICAL CREAM 30 GM TUBE TP SCH (09:32)
[2022-09-29] MEDS: FLUTICASONE/UMECLIDIN/VILANTER(200-62.5-25 TRELEGY ELLIPTA) INAHLER IH SCH (09:33)
[2022-09-29 10:00] LABS: ANISOCYTOSIS 0; MACROCYTOSIS 0; OVALOCYTE 1+
[2022-09-29] MEDS: EZETIMIBE 10 MG TABLET (FP) PO SCH (10:35)
[2022-09-29] MEDS: ATORVASTATIN CA 40 MG TABLET (FP) PO SCH (21:37)
[2022-09-29] MEDS: ZOLPIDEM TARTRATE 5 MG TABLET PO PRN (21:37)
[2022-09-29] MEDS: MONTELUKAST NA 10 MG TABLET PO SCH (21:38)
[2022-09-29] MEDS: GABAPENTIN 300 MG CAPSULE PO SCH (21:40)
[2022-09-30] MEDS: methylPREDNISolone NA SUCC 40 MG/1 ML VIAL IVPUSH SCH ×2 (01:14→12:40)
[2022-09-30] MEDS: GABAPENTIN 100 MG CAPSULE PO SCH ×3 (05:40→17:16)
[2022-09-30] MEDS: ALBUTEROL SO4 0.083% IH SOL 2.5 MG/3 ML VIAL.NEB. NEB SCH ×4 (07:30→20:33)
[2022-09-30] MEDS: BUDESONIDE 0.5 MG/2 ML INH SUSP VIAL NEB SCH ×2 (07:30→20:33)
[2022-09-30 08:47] LABS: HEMATOCRIT 26.5 % (35.4-49); HEMOGLOBIN 8.2 GM/dL (11.7-16.9); MCH 25.5 pg (25.7-33.7); MCHC 30.7 g/dl (32.0-35.9); MEAN CELL VOLUME 83.1 fl (80-96); MEAN PLT VOLUME 8.5 fl (7.5-11.1); PLATELET COUNT 277 10^3/uL (134-434); RBC 3.19 M/mm3 (4.00-5.60); RDW 18.2 % (11.9-15.9); WHITE BLOOD COUNT 14.7 K/mm3 (4.0-10.0)
[2022-09-30 09:02] LABS: POTASSIUM 4.2 mmol/L (3.5-5.1)
[2022-09-30 09:11] LABS: CALCIUM 8.2 mg/dL (8.5-10.1)
[2022-09-30 09:12] LABS: BLOOD UREA NITROGEN 20.6 mg/dL (7-18)
[2022-09-30 09:15] LABS: CREATININE 0.6 mg/dL (0.55-1.3); PHOSPHOROUS 3.5 mg/dL (2.5-4.9)
[2022-09-30 09:17] LABS: MAGNESIUM 2.6 mg/dL (1.8-2.4)
[2022-09-30] MEDS: ROFLUMILAST 500 MCG TABLET PO SCH (10:28)
[2022-09-30] MEDS: FAMOTIDINE 20 MG TABLET PO SCH ×2 (10:28→21:59)
[2022-09-30] MEDS: EZETIMIBE 10 MG TABLET (FP) PO SCH (10:28)
[2022-09-30] MEDS: FLUTICASONE/UMECLIDIN/VILANTER(200-62.5-25 TRELEGY ELLIPTA) INAHLER IH SCH (10:29)
[2022-09-30] MEDS: HYDROCORTISONE 2.5% TOPICAL CREAM 30 GM TUBE TP SCH (10:30)
[2022-09-30] MEDS: ENOXAPARIN NA (PORCINE) 80 MG/0.8 ML DISP.SYRIN SQ SCH ×2 (11:57→22:02)
[2022-09-30] MEDS: ASPIRIN COATED 81 MG TABLET.EC PO SCH (11:59)
[2022-09-30] MEDS ORDERED: MEROPENEM 1 GM VIAL (RESTRICTED TO ID) IVPB ONE (16:01)
[2022-09-30] MEDS: LIPASE/PROTEASE/AMYLASE 36,000 UNIT CAPSULE PO SCH (17:16)
[2022-09-30] MEDS: MEROPENEM 1 GM in DEXTROSE 5%-WATER 100 ML IVPB SCH ×2 (17:36)
[2022-09-30] MEDS: ATORVASTATIN CA 40 MG TABLET (FP) PO SCH (21:59)
[2022-09-30] MEDS: MONTELUKAST NA 10 MG TABLET PO SCH (21:59)
[2022-09-30] MEDS: ZOLPIDEM TARTRATE 5 MG TABLET PO PRN (21:59)
[2022-09-30] MEDS: GABAPENTIN 300 MG CAPSULE PO SCH (21:59)
[2022-09-30] MEDS: RIFAXIMIN 550 MG TABLET PO SCH (22:00)
[2022-10-01] MEDS: methylPREDNISolone NA SUCC 40 MG/1 ML VIAL IVPUSH SCH ×2 (00:58→13:42)
[2022-10-01] MEDS: MEROPENEM 1 GM in DEXTROSE 5%-WATER 100 ML IVPB SCH ×3 (01:27→17:58)
[2022-10-01] MEDS: GABAPENTIN 100 MG CAPSULE PO SCH ×3 (06:47→17:58)
[2022-10-01] MEDS: RIFAXIMIN 550 MG TABLET PO SCH ×3 (06:47→22:35)
[2022-10-01 08:09] LABS: HEMATOCRIT 29.8 % (35.4-49); HEMOGLOBIN 9.5 GM/dL (11.7-16.9); MCH 25.9 pg (25.7-33.7); MCHC 31.9 g/dl (32.0-35.9); MEAN PLT VOLUME 7.9 fl (7.5-11.1); PLATELET COUNT 268 10^3/uL (134-434); RBC 3.68 M/mm3 (4.00-5.60); RDW 17.8 % (11.9-15.9); WHITE BLOOD COUNT 15.3 K/mm3 (4.0-10.0)
[2022-10-01] MEDS: BUDESONIDE 0.5 MG/2 ML INH SUSP VIAL NEB SCH ×2 (08:19→20:44)
[2022-10-01] MEDS: ALBUTEROL SO4 0.083% IH SOL 2.5 MG/3 ML VIAL.NEB. NEB SCH ×4 (08:20→20:54)
[2022-10-01 08:38] LABS: ALBUMIN 2.5 g/dl (3.4-5.0); BLOOD UREA NITROGEN 20.6 mg/dL (7-18); CALCIUM 7.9 mg/dL (8.5-10.1); MAGNESIUM 2.4 mg/dL (1.8-2.4)
[2022-10-01 08:41] LABS: CREATININE 0.6 mg/dL (0.55-1.3); PHOSPHOROUS 3.2 mg/dL (2.5-4.9)
[2022-10-01 08:42] LABS: BILIRUBIN,TOTAL 0.3 mg/dL (0.2-1)
[2022-10-01 08:43] LABS: TOT PROT 4.5 g/dl (6.4-8.2)
[2022-10-01] MEDS: EZETIMIBE 10 MG TABLET (FP) PO SCH (09:26)
[2022-10-01] MEDS: FAMOTIDINE 20 MG TABLET PO SCH ×2 (09:26→22:35)
[2022-10-01] MEDS: HYDROCORTISONE 2.5% TOPICAL CREAM 30 GM TUBE TP SCH (09:27)
[2022-10-01] MEDS: FLUTICASONE/UMECLIDIN/VILANTER(200-62.5-25 TRELEGY ELLIPTA) INAHLER IH SCH (09:27)
[2022-10-01] MEDS: ROFLUMILAST 500 MCG TABLET PO SCH (09:30)
[2022-10-01] MEDS: LIPASE/PROTEASE/AMYLASE 36,000 UNIT CAPSULE PO SCH ×3 (09:30→17:58)
[2022-10-01] MEDS: ENOXAPARIN NA (PORCINE) 80 MG/0.8 ML DISP.SYRIN SQ SCH (09:32)
[2022-10-01] MEDS: MONTELUKAST NA 10 MG TABLET PO SCH (22:35)
[2022-10-01] MEDS: ATORVASTATIN CA 40 MG TABLET (FP) PO SCH (22:35)
[2022-10-01] MEDS: GABAPENTIN 300 MG CAPSULE PO SCH (22:35)
[2022-10-01] MEDS: ZOLPIDEM TARTRATE 5 MG TABLET PO ONE (22:35)
[2022-10-02] MEDS: methylPREDNISolone NA SUCC 40 MG/1 ML VIAL IVPUSH SCH ×2 (01:38→12:56)
[2022-10-02] MEDS: MEROPENEM 1 GM in DEXTROSE 5%-WATER 100 ML IVPB SCH ×2 (01:38→09:39)
[2022-10-02] MEDS: GABAPENTIN 100 MG CAPSULE PO SCH ×3 (05:27→18:05)
[2022-10-02] MEDS: RIFAXIMIN 550 MG TABLET PO SCH ×2 (05:28→14:05)
[2022-10-02] MEDS: BUDESONIDE 0.5 MG/2 ML INH SUSP VIAL NEB SCH ×2 (07:43→19:55)
[2022-10-02] MEDS: ALBUTEROL SO4 0.083% IH SOL 2.5 MG/3 ML VIAL.NEB. NEB SCH ×3 (07:44→15:34)
[2022-10-02 08:17] LABS: HEMATOCRIT 29.4 % (35.4-49); HEMOGLOBIN 9.2 GM/dL (11.7-16.9); MCH 25.8 pg (25.7-33.7); MCHC 31.3 g/dl (32.0-35.9); MEAN CELL VOLUME 82.4 fl (80-96); MEAN PLT VOLUME 8.4 fl (7.5-11.1); PLATELET COUNT 268 10^3/uL (134-434); RBC 3.57 M/mm3 (4.00-5.60); WHITE BLOOD COUNT 16.1 K/mm3 (4.0-10.0)
[2022-10-02 08:29] LABS: POTASSIUM 3.8 mmol/L (3.5-5.1)
[2022-10-02 08:32] LABS: CALCIUM 8.2 mg/dL (8.5-10.1)
[2022-10-02 08:33] LABS: ALBUMIN 2.4 g/dl (3.4-5.0); BLOOD UREA NITROGEN 17.4 mg/dL (7-18); MAGNESIUM 2.3 mg/dL (1.8-2.4)
[2022-10-02 08:36] LABS: CREATININE 0.6 mg/dL (0.55-1.3); PHOSPHOROUS 3.1 mg/dL (2.5-4.9)
[2022-10-02 08:37] LABS: BILIRUBIN,TOTAL 0.4 mg/dL (0.2-1); TOT PROT 4.5 g/dl (6.4-8.2)
[2022-10-02] MEDS: ROFLUMILAST 500 MCG TABLET PO SCH (09:39)
[2022-10-02] MEDS: FAMOTIDINE 20 MG TABLET PO SCH ×2 (09:39→21:38)
[2022-10-02] MEDS: LIPASE/PROTEASE/AMYLASE 36,000 UNIT CAPSULE PO SCH ×3 (09:39→18:05)
[2022-10-02] MEDS: ASPIRIN COATED 81 MG TABLET.EC PO SCH (09:39)
[2022-10-02] MEDS: EZETIMIBE 10 MG TABLET (FP) PO SCH (09:39)
[2022-10-02] MEDS: FLUTICASONE/UMECLIDIN/VILANTER(200-62.5-25 TRELEGY ELLIPTA) INAHLER IH SCH (09:44)
[2022-10-02] MEDS: HYDROCORTISONE 2.5% TOPICAL CREAM 30 GM TUBE TP SCH (09:45)
[2022-10-02] MEDS ORDERED: INSULIN (NOVOLOG) ASPART 100 UNITS/ML 10ML VIAL ONE (11:09)
[2022-10-02] MEDS ORDERED: BUPIVACAINE HCL/PF 0.25% (2.5MG/ML) 10 ML VIAL ONE (12:12)
[2022-10-02] MEDS ORDERED: ONDANSETRON 4 MG/2 ML VIAL ONE (13:50)
[2022-10-02] MEDS ORDERED: MIDAZOLAM HCL 2 MG/2 ML SINGLE DOSE VIAL ONE ×2 (13:50→14:25)
[2022-10-02] MEDS ORDERED: PHENYLEPHRINE HCL 10 MG/1 ML SINGLE DOSE VIAL ONE (13:50)
[2022-10-02] MEDS ORDERED: BUPIVACAINE HCL/PF 0.25% (2.5MG/ML) 10 ML VIAL IJ ONE (14:33)
[2022-10-02] MEDS ORDERED: oxyCODONE HCL 5 MG TABLET PO PRN (15:57)
[2022-10-02] MEDS ORDERED: ONDANSETRON 4 MG/2 ML VIAL IVPUSH PRN ×2 (15:57→16:12)
[2022-10-02] MEDS ORDERED: LACTATED RINGERS SOLUTION 1,000 ML IV SCH (16:00)
[2022-10-02] MEDS ORDERED: IBUPROFEN 400 MG TABLET (FP) PO PRN (16:12)
[2022-10-02] MEDS ORDERED: ZOLPIDEM TARTRATE 5 MG TABLET PO PRN (16:12)
[2022-10-02] MEDS ORDERED: DOCUSATE SODIUM 100 MG CAPSULE (FP) PO PRN (16:12)
[2022-10-02] MEDS ORDERED: ACETAMINOPHEN INJECTION 100 ML IVPB ONE (17:39)
[2022-10-02] MEDS ORDERED: ACETAMINOPHEN 1000 MG/100 ML BAG IVPB ONE (17:40)
[2022-10-02] MEDS: LACTATED RINGERS SOLUTION 1,000 ML IV SCH (18:07)
[2022-10-02] MEDS: ACETAMINOPHEN 325 MG TABLET (FP) PO SCH ×2 (18:08→21:39)
[2022-10-02] MEDS: ATORVASTATIN CA 40 MG TABLET (FP) PO SCH (21:38)
[2022-10-02] MEDS: SENNOSIDES 8.8 MG/5 ML SYRUP PO SCH (21:39)
[2022-10-02] MEDS: MONTELUKAST NA 10 MG TABLET PO SCH (21:39)
[2022-10-02] MEDS: GABAPENTIN 300 MG CAPSULE PO SCH (21:41)
[2022-10-03] MEDS: methylPREDNISolone NA SUCC 40 MG/1 ML VIAL IVPUSH SCH ×2 (00:10→12:03)
[2022-10-03] MEDS: ACETAMINOPHEN 325 MG TABLET (FP) PO SCH (03:30)
[2022-10-03] MEDS ORDERED: ZOLPIDEM TARTRATE 5 MG TABLET PO ONE (03:30)
[2022-10-03] MEDS: GABAPENTIN 100 MG CAPSULE PO SCH ×3 (05:55→17:27)
[2022-10-03] MEDS: LIPASE/PROTEASE/AMYLASE 36,000 UNIT CAPSULE PO SCH ×3 (07:37→17:27)
[2022-10-03 08:37] LABS: HEMATOCRIT 28.5 % (35.4-49); HEMOGLOBIN 8.9 GM/dL (11.7-16.9); MCHC 31.1 g/dl (32.0-35.9); MEAN CELL VOLUME 83.5 fl (80-96); MEAN PLT VOLUME 8.3 fl (7.5-11.1); PLATELET COUNT 233 10^3/uL (134-434); RBC 3.42 M/mm3 (4.00-5.60); WHITE BLOOD COUNT 16.1 K/mm3 (4.0-10.0)
[2022-10-03] MEDS: BUDESONIDE 0.5 MG/2 ML INH SUSP VIAL NEB SCH ×2 (08:37→20:05)
[2022-10-03 08:51] LABS: ALBUMIN 2.2 g/dl (3.4-5.0); CALCIUM 7.7 mg/dL (8.5-10.1); MAGNESIUM 2.2 mg/dL (1.8-2.4)
[2022-10-03 08:52] LABS: BLOOD UREA NITROGEN 22.3 mg/dL (7-18)
[2022-10-03 08:54] LABS: CREATININE 0.6 mg/dL (0.55-1.3); PHOSPHOROUS 3.3 mg/dL (2.5-4.9)
[2022-10-03 08:56] LABS: BILIRUBIN,TOTAL 0.3 mg/dL (0.2-1); TOT PROT 4.2 g/dl (6.4-8.2)
[2022-10-03] MEDS ORDERED: POLYETHYLENE GLYCOL (HEALTHYLAX) 3350 17 GM PACKET PO SCH (10:00)
[2022-10-03] MEDS ORDERED: FLUTICASONE/UMECLIDIN/VILANTER(200-62.5-25 TRELEGY ELLIPTA) INAHLER IH SCH (10:00)
[2022-10-03] MEDS: ACETAMINOPHEN 1000 MG/100 ML BAG IVPB SCH (11:37)
[2022-10-03] MEDS: FAMOTIDINE 20 MG TABLET PO SCH ×2 (11:38→21:19)
[2022-10-03] MEDS: ROFLUMILAST 500 MCG TABLET PO SCH (11:38)
[2022-10-03] MEDS: EZETIMIBE 10 MG TABLET (FP) PO SCH (11:38)
[2022-10-03] MEDS: HYDROCORTISONE 2.5% TOPICAL CREAM 30 GM TUBE TP SCH (11:41)
[2022-10-03] MEDS: oxyCODONE HCL 5 MG TABLET PO PRN ×3 (13:04→21:17)
[2022-10-03] MEDS ORDERED: ENOXAPARIN NA (PORCINE) 80 MG/0.8 ML DISP.SYRIN SQ SCH (14:30)
[2022-10-03] MEDS: LACTATED RINGERS SOLUTION 1,000 ML IV SCH (16:37)
[2022-10-03 18:30] LABS: HEMATOCRIT 33.2 % (35.4-49); HEMOGLOBIN 10.3 GM/dL (11.7-16.9); MCH 25.5 pg (25.7-33.7); MEAN CELL VOLUME 82.5 fl (80-96); MEAN PLT VOLUME 7.8 fl (7.5-11.1); PLATELET COUNT 262 10^3/uL (134-434); RBC 4.03 M/mm3 (4.00-5.60); RDW 18.1 % (11.9-15.9); WHITE BLOOD COUNT 20.1 K/mm3 (4.0-10.0)
[2022-10-03] MEDS: ATORVASTATIN CA 40 MG TABLET (FP) PO SCH (21:19)
[2022-10-03] MEDS: ZOLPIDEM TARTRATE 5 MG TABLET PO PRN (21:19)
[2022-10-03] MEDS: MONTELUKAST NA 10 MG TABLET PO SCH (21:20)
[2022-10-03] MEDS: GABAPENTIN 300 MG CAPSULE PO SCH (21:20)
[2022-10-03] MEDS: SENNOSIDES 8.8 MG/5 ML SYRUP PO SCH (21:21)
[2022-10-04] MEDS: ACETAMINOPHEN 1000 MG/100 ML BAG IVPB SCH ×3 (01:08→09:10)
[2022-10-04] MEDS: methylPREDNISolone NA SUCC 40 MG/1 ML VIAL IVPUSH SCH ×2 (01:13→12:50)
[2022-10-04] MEDS: MELATONIN 5 MG TABLETS PO SCH ×2 (01:15→21:22)
[2022-10-04] MEDS: SULFAMETHOXAZOLE/TRIMETHOPRIM 800MG/160MG D.S. TABLET PO SCH ×3 (01:20→21:23)
[2022-10-04] MEDS: POLYETHYLENE GLYCOL (HEALTHYLAX) 3350 17 GM PACKET PO SCH ×4 (01:25→21:21)
[2022-10-04] MEDS: GABAPENTIN 100 MG CAPSULE PO SCH ×3 (06:53→18:16)
[2022-10-04 07:44] LABS: HEMATOCRIT 27.8 % (35.4-49); HEMOGLOBIN 8.6 GM/dL (11.7-16.9); MCH 25.8 pg (25.7-33.7); MCHC 30.9 g/dl (32.0-35.9); MEAN CELL VOLUME 83.7 fl (80-96); MEAN PLT VOLUME 8.4 fl (7.5-11.1); PLATELET COUNT 203 10^3/uL (134-434); RBC 3.32 M/mm3 (4.00-5.60); RDW 18.2 % (11.9-15.9); WHITE BLOOD COUNT 17.1 K/mm3 (4.0-10.0)
[2022-10-04 07:55] LABS: POTASSIUM 4.3 mmol/L (3.5-5.1)
[2022-10-04 08:00] LABS: BLOOD UREA NITROGEN 15.7 mg/dL (7-18); CALCIUM 7.7 mg/dL (8.5-10.1)
[2022-10-04 08:01] LABS: ALBUMIN 2.2 g/dl (3.4-5.0); MAGNESIUM 2.3 mg/dL (1.8-2.4)
[2022-10-04 08:04] LABS: CREATININE 0.5 mg/dL (0.55-1.3)
[2022-10-04 08:05] LABS: TOT PROT 4.2 g/dl (6.4-8.2)
[2022-10-04 08:24] LABS: BILIRUBIN,TOTAL 0.3 mg/dL (0.2-1)
[2022-10-04] MEDS: BUDESONIDE 0.5 MG/2 ML INH SUSP VIAL NEB SCH ×2 (08:49→21:11)
[2022-10-04] MEDS: FAMOTIDINE 20 MG TABLET PO SCH ×2 (09:12→21:25)
[2022-10-04] MEDS: oxyCODONE HCL 5 MG TABLET PO PRN ×2 (09:12→21:23)
[2022-10-04] MEDS: ROFLUMILAST 500 MCG TABLET PO SCH (09:13)
[2022-10-04] MEDS: EZETIMIBE 10 MG TABLET (FP) PO SCH (09:13)
[2022-10-04] MEDS: LIPASE/PROTEASE/AMYLASE 36,000 UNIT CAPSULE PO SCH ×3 (09:13→18:16)
[2022-10-04] MEDS: HYDROCORTISONE 2.5% TOPICAL CREAM 30 GM TUBE TP SCH (09:13)
[2022-10-04 09:52] LABS: ANISOCYTOSIS 2+; MACROCYTOSIS 0; OVALOCYTE 2+; TARGET CELLS 1+
[2022-10-04] MEDS ORDERED: APIXABAN 5 MG TABLET PO SCH (10:00)
[2022-10-04 19:10] LABS: HEMOGLOBIN 9.2 GM/dL (11.7-16.9); MCH 26.4 pg (25.7-33.7); MCHC 31.7 g/dl (32.0-35.9); MEAN CELL VOLUME 83.4 fl (80-96); MEAN PLT VOLUME 8.4 fl (7.5-11.1); PLATELET COUNT 194 10^3/uL (134-434); RBC 3.48 M/mm3 (4.00-5.60); RDW 18.3 % (11.9-15.9); WHITE BLOOD COUNT 17.2 K/mm3 (4.0-10.0)
[2022-10-04] MEDS: SENNOSIDES 8.8 MG/5 ML SYRUP PO SCH (21:20)
[2022-10-04] MEDS: MONTELUKAST NA 10 MG TABLET PO SCH (21:23)
[2022-10-04] MEDS: GABAPENTIN 300 MG CAPSULE PO SCH (21:25)
[2022-10-04] MEDS: ZOLPIDEM TARTRATE 5 MG TABLET PO PRN (21:26)
[2022-10-05] MEDS: ATORVASTATIN CA 40 MG TABLET (FP) PO SCH ×2 (02:23→22:18)
[2022-10-05] MEDS: oxyCODONE HCL 5 MG TABLET PO PRN ×4 (04:50→22:19)
[2022-10-05] MEDS: GABAPENTIN 100 MG CAPSULE PO SCH ×3 (06:50→17:26)
[2022-10-05] MEDS: POLYETHYLENE GLYCOL (HEALTHYLAX) 3350 17 GM PACKET PO SCH ×3 (06:50→22:21)
[2022-10-05] MEDS: BUDESONIDE 0.5 MG/2 ML INH SUSP VIAL NEB SCH ×2 (07:04→20:35)
[2022-10-05 08:05] LABS: HEMATOCRIT 28.5 % (35.4-49); HEMOGLOBIN 8.9 GM/dL (11.7-16.9); MCH 25.9 pg (25.7-33.7); MCHC 31.2 g/dl (32.0-35.9); MEAN CELL VOLUME 83.1 fl (80-96); MEAN PLT VOLUME 8.1 fl (7.5-11.1); PLATELET COUNT 192 10^3/uL (134-434); RBC 3.43 M/mm3 (4.00-5.60); RDW 18.3 % (11.9-15.9); WHITE BLOOD COUNT 17.2 K/mm3 (4.0-10.0)
[2022-10-05 08:24] LABS: POTASSIUM 4.2 mmol/L (3.5-5.1)
[2022-10-05 08:26] LABS: CALCIUM 8.3 mg/dL (8.5-10.1)
[2022-10-05 08:27] LABS: BLOOD UREA NITROGEN 15.7 mg/dL (7-18); MAGNESIUM 2.3 mg/dL (1.8-2.4)
[2022-10-05 08:28] LABS: ALBUMIN 2.3 g/dl (3.4-5.0)
[2022-10-05 08:30] LABS: CREATININE 0.6 mg/dL (0.55-1.3); PHOSPHOROUS 3.1 mg/dL (2.5-4.9)
[2022-10-05 08:32] LABS: BILIRUBIN,TOTAL 0.2 mg/dL (0.2-1); TOT PROT 4.4 g/dl (6.4-8.2)
[2022-10-05] MEDS: ROFLUMILAST 500 MCG TABLET PO SCH (09:37)
[2022-10-05] MEDS: LIPASE/PROTEASE/AMYLASE 36,000 UNIT CAPSULE PO SCH ×3 (09:37→17:26)
[2022-10-05] MEDS: predniSONE 20 MG TABLET (UD) PO SCH (09:37)
[2022-10-05] MEDS: EZETIMIBE 10 MG TABLET (FP) PO SCH (09:37)
[2022-10-05] MEDS: FAMOTIDINE 20 MG TABLET PO SCH ×2 (09:38→22:18)
[2022-10-05] MEDS: SULFAMETHOXAZOLE/TRIMETHOPRIM 800MG/160MG D.S. TABLET PO SCH ×2 (09:38→22:17)
[2022-10-05] MEDS: HYDROCORTISONE 2.5% TOPICAL CREAM 30 GM TUBE TP SCH (09:38)
[2022-10-05] MEDS: MELATONIN 5 MG TABLETS PO SCH (22:18)
[2022-10-05] MEDS: ZOLPIDEM TARTRATE 5 MG TABLET PO PRN (22:18)
[2022-10-05] MEDS: GABAPENTIN 300 MG CAPSULE PO SCH (22:19)
[2022-10-05] MEDS: MONTELUKAST NA 10 MG TABLET PO SCH (22:21)
[2022-10-05] MEDS: SENNOSIDES 8.8 MG/5 ML SYRUP PO SCH (22:22)
[2022-10-06] MEDS: POLYETHYLENE GLYCOL (HEALTHYLAX) 3350 17 GM PACKET PO SCH ×3 (06:09→21:17)
[2022-10-06] MEDS: oxyCODONE HCL 5 MG TABLET PO PRN ×3 (06:13→17:05)
[2022-10-06] MEDS: GABAPENTIN 100 MG CAPSULE PO SCH ×3 (06:15→17:02)
[2022-10-06] MEDS: BUDESONIDE 0.5 MG/2 ML INH SUSP VIAL NEB SCH (07:58)
[2022-10-06 08:26] LABS: HEMATOCRIT 28.3 % (35.4-49); MCH 26.1 pg (25.7-33.7); MCHC 31.9 g/dl (32.0-35.9); MEAN CELL VOLUME 81.7 fl (80-96); MEAN PLT VOLUME 8.1 fl (7.5-11.1); PLATELET COUNT 176 10^3/uL (134-434); RBC 3.46 M/mm3 (4.00-5.60); RDW 18.6 % (11.9-15.9); WHITE BLOOD COUNT 15.2 K/mm3 (4.0-10.0)
[2022-10-06 08:55] LABS: POTASSIUM 3.8 mmol/L (3.5-5.1)
[2022-10-06 09:02] LABS: CALCIUM 7.9 mg/dL (8.5-10.1)
[2022-10-06 09:03] LABS: ALBUMIN 2.4 g/dl (3.4-5.0); BLOOD UREA NITROGEN 14.3 mg/dL (7-18); MAGNESIUM 2.1 mg/dL (1.8-2.4)
[2022-10-06 09:06] LABS: CREATININE 0.7 mg/dL (0.55-1.3); PHOSPHOROUS 2.6 mg/dL (2.5-4.9)
[2022-10-06 09:07] LABS: BILIRUBIN,TOTAL 0.3 mg/dL (0.2-1); TOT PROT 4.5 g/dl (6.4-8.2)
[2022-10-06] MEDS: SULFAMETHOXAZOLE/TRIMETHOPRIM 800MG/160MG D.S. TABLET PO SCH ×2 (10:10→21:18)
[2022-10-06] MEDS: FAMOTIDINE 20 MG TABLET PO SCH ×2 (10:10→21:18)
[2022-10-06] MEDS: EZETIMIBE 10 MG TABLET (FP) PO SCH (10:11)
[2022-10-06] MEDS: predniSONE 20 MG TABLET (UD) PO SCH (10:11)
[2022-10-06] MEDS: LIPASE/PROTEASE/AMYLASE 36,000 UNIT CAPSULE PO SCH ×3 (10:11→17:03)
[2022-10-06] MEDS: ROFLUMILAST 500 MCG TABLET PO SCH (10:12)
[2022-10-06] MEDS: HYDROCORTISONE 2.5% TOPICAL CREAM 30 GM TUBE TP SCH (10:17)
[2022-10-06] MEDS: FLUTICASONE/UMECLIDIN/VILANTER(200-62.5-25 TRELEGY ELLIPTA) INAHLER IH SCH (13:40)
[2022-10-06] MEDS: SENNOSIDES 8.8 MG/5 ML SYRUP PO SCH (21:17)
[2022-10-06] MEDS: ATORVASTATIN CA 40 MG TABLET (FP) PO SCH (21:18)
[2022-10-06] MEDS: MONTELUKAST NA 10 MG TABLET PO SCH (21:18)
[2022-10-06] MEDS: GABAPENTIN 300 MG CAPSULE PO SCH (21:18)
[2022-10-06] MEDS: MELATONIN 5 MG TABLETS PO SCH (21:18)
[2022-10-06] MEDS ORDERED: ALBUTEROL SO4 2.5/IPRATROPIUM 0.5 INH SOL 3 ML VIAL.NEB. NEB ONE (21:35)
[2022-10-06] MEDS: ZOLPIDEM TARTRATE 5 MG TABLET PO PRN (23:06)
[2022-10-07] MEDS: GABAPENTIN 100 MG CAPSULE PO SCH ×3 (06:34→17:04)
[2022-10-07] MEDS: POLYETHYLENE GLYCOL (HEALTHYLAX) 3350 17 GM PACKET PO SCH ×3 (06:34→22:16)
[2022-10-07 07:44] LABS: HEMATOCRIT 27.7 % (35.4-49); HEMOGLOBIN 8.7 GM/dL (11.7-16.9); MCH 25.9 pg (25.7-33.7); MCHC 31.3 g/dl (32.0-35.9); MEAN CELL VOLUME 82.7 fl (80-96); MEAN PLT VOLUME 7.9 fl (7.5-11.1); PLATELET COUNT 163 10^3/uL (134-434); RBC 3.35 M/mm3 (4.00-5.60); RDW 18.8 % (11.9-15.9); WHITE BLOOD COUNT 12.9 K/mm3 (4.0-10.0)
[2022-10-07 07:56] LABS: POTASSIUM 4.2 mmol/L (3.5-5.1)
[2022-10-07 07:58] LABS: BLOOD UREA NITROGEN 12.2 mg/dL (7-18); MAGNESIUM 2.3 mg/dL (1.8-2.4)
[2022-10-07 08:01] LABS: CREATININE 0.7 mg/dL (0.55-1.3); PHOSPHOROUS 2.9 mg/dL (2.5-4.9)
[2022-10-07] MEDS: LIPASE/PROTEASE/AMYLASE 36,000 UNIT CAPSULE PO SCH ×3 (08:06→17:04)
[2022-10-07] MEDS: HYDROCORTISONE 2.5% TOPICAL CREAM 30 GM TUBE TP SCH ×2 (09:16→13:35)
[2022-10-07] MEDS: SULFAMETHOXAZOLE/TRIMETHOPRIM 800MG/160MG D.S. TABLET PO SCH ×2 (09:16→22:15)
[2022-10-07] MEDS: FAMOTIDINE 20 MG TABLET PO SCH ×2 (09:16→22:16)
[2022-10-07] MEDS: predniSONE 20 MG TABLET (UD) PO SCH (09:16)
[2022-10-07] MEDS: FLUTICASONE/UMECLIDIN/VILANTER(200-62.5-25 TRELEGY ELLIPTA) INAHLER IH SCH (09:17)
[2022-10-07] MEDS: ROFLUMILAST 500 MCG TABLET PO SCH (09:17)
[2022-10-07] MEDS: EZETIMIBE 10 MG TABLET (FP) PO SCH (09:17)
[2022-10-07] MEDS ORDERED: ALBUTEROL SO4 2.5/IPRATROPIUM 0.5 INH SOL 3 ML VIAL.NEB. NEB ONE (13:22)
[2022-10-07] MEDS ORDERED: ACETAMINOPHEN 325 MG TABLET (FP) PO PRN (13:55)
[2022-10-07] MEDS: ALBUTEROL SO4 0.083% IH SOL 2.5 MG/3 ML VIAL.NEB. NEB PRN (20:44)
[2022-10-07] MEDS: ATORVASTATIN CA 40 MG TABLET (FP) PO SCH (22:16)
[2022-10-07] MEDS: MELATONIN 5 MG TABLETS PO SCH (22:16)
[2022-10-07] MEDS: GABAPENTIN 300 MG CAPSULE PO SCH (22:16)
[2022-10-07] MEDS: ZOLPIDEM TARTRATE 5 MG TABLET PO PRN (22:17)
[2022-10-07] MEDS: SENNOSIDES 8.8 MG/5 ML SYRUP PO SCH (22:17)
[2022-10-07] MEDS: MONTELUKAST NA 10 MG TABLET PO SCH (22:17)
[2022-10-08] MEDS: GABAPENTIN 100 MG CAPSULE PO SCH ×3 (06:03→17:21)
[2022-10-08] MEDS: POLYETHYLENE GLYCOL (HEALTHYLAX) 3350 17 GM PACKET PO SCH ×4 (06:03→21:53)
[2022-10-08 07:43] LABS: HEMATOCRIT 27.8 % (35.4-49); HEMOGLOBIN 8.7 GM/dL (11.7-16.9); MCH 26.1 pg (25.7-33.7); MCHC 31.2 g/dl (32.0-35.9); MEAN CELL VOLUME 83.6 fl (80-96); MEAN PLT VOLUME 8.3 fl (7.5-11.1); PLATELET COUNT 146 10^3/uL (134-434); RBC 3.33 M/mm3 (4.00-5.60); RDW 18.5 % (11.9-15.9); WHITE BLOOD COUNT 12.7 K/mm3 (4.0-10.0)
[2022-10-08] MEDS: LIPASE/PROTEASE/AMYLASE 36,000 UNIT CAPSULE PO SCH ×3 (08:01→17:21)
[2022-10-08 08:08] LABS: POTASSIUM 4.4 mmol/L (3.5-5.1)
[2022-10-08 08:17] LABS: BILIRUBIN,TOTAL 0.3 mg/dL (0.2-1)
[2022-10-08 08:18] LABS: ALBUMIN 2.4 g/dl (3.4-5.0); BLOOD UREA NITROGEN 8.4 mg/dL (7-18); MAGNESIUM 2.4 mg/dL (1.8-2.4)
[2022-10-08 08:20] LABS: CALCIUM 8.5 mg/dL (8.5-10.1)
[2022-10-08 08:21] LABS: CREATININE 0.7 mg/dL (0.55-1.3)
[2022-10-08 08:23] LABS: TOT PROT 4.6 g/dl (6.4-8.2)
[2022-10-08] MEDS: FAMOTIDINE 20 MG TABLET PO SCH ×2 (09:22→21:52)
[2022-10-08] MEDS: SULFAMETHOXAZOLE/TRIMETHOPRIM 800MG/160MG D.S. TABLET PO SCH ×2 (09:22→21:52)
[2022-10-08] MEDS: predniSONE 20 MG TABLET (UD) PO SCH (09:22)
[2022-10-08] MEDS: FLUTICASONE/UMECLIDIN/VILANTER(200-62.5-25 TRELEGY ELLIPTA) INAHLER IH SCH (09:23)
[2022-10-08] MEDS: HYDROCORTISONE 2.5% TOPICAL CREAM 30 GM TUBE TP SCH (09:23)
[2022-10-08] MEDS: ROFLUMILAST 500 MCG TABLET PO SCH (09:23)
[2022-10-08] MEDS: EZETIMIBE 10 MG TABLET (FP) PO SCH (09:23)
[2022-10-08] MEDS: SIMETHICONE 80 MG TAB.CHEW (FP) PO SCH ×4 (10:17→21:52)
[2022-10-08] MEDS: ALBUTEROL SO4 0.083% IH SOL 2.5 MG/3 ML VIAL.NEB. NEB PRN ×2 (12:19→20:39)
[2022-10-08] MEDS ORDERED: ALBUTEROL SO4 2.5/IPRATROPIUM 0.5 INH SOL 3 ML VIAL.NEB. NEB ONE (12:51)
[2022-10-08] MEDS: ENOXAPARIN NA (PORCINE) 80 MG/0.8 ML DISP.SYRIN SQ SCH ×2 (13:35→21:53)
[2022-10-08] MEDS: GABAPENTIN 300 MG CAPSULE PO SCH (21:52)
[2022-10-08] MEDS: MONTELUKAST NA 10 MG TABLET PO SCH (21:52)
[2022-10-08] MEDS: ATORVASTATIN CA 40 MG TABLET (FP) PO SCH (21:52)
[2022-10-08] MEDS: MELATONIN 5 MG TABLETS PO SCH (21:52)
[2022-10-08] MEDS: SENNOSIDES 8.8 MG/5 ML SYRUP PO SCH (21:53)
[2022-10-08] MEDS: ZOLPIDEM TARTRATE 5 MG TABLET PO PRN (21:57)
[2022-10-09] MEDS: GABAPENTIN 100 MG CAPSULE PO SCH ×3 (05:40→17:31)
[2022-10-09] MEDS: POLYETHYLENE GLYCOL (HEALTHYLAX) 3350 17 GM PACKET PO SCH ×3 (05:41→21:37)
[2022-10-09] MEDS: ALBUTEROL SO4 0.083% IH SOL 2.5 MG/3 ML VIAL.NEB. NEB PRN ×2 (08:11→22:41)
[2022-10-09 08:43] LABS: HEMOGLOBIN 8.5 GM/dL (11.7-16.9); MCH 26.2 pg (25.7-33.7); MCHC 31.6 g/dl (32.0-35.9); MEAN CELL VOLUME 82.9 fl (80-96); MEAN PLT VOLUME 7.9 fl (7.5-11.1); PLATELET COUNT 130 10^3/uL (134-434); RBC 3.26 M/mm3 (4.00-5.60); RDW 18.6 % (11.9-15.9)
[2022-10-09] MEDS: ENOXAPARIN NA (PORCINE) 80 MG/0.8 ML DISP.SYRIN SQ SCH ×2 (10:21→21:38)
[2022-10-09] MEDS: predniSONE 20 MG TABLET (UD) PO SCH (10:24)
[2022-10-09] MEDS: SULFAMETHOXAZOLE/TRIMETHOPRIM 800MG/160MG D.S. TABLET PO SCH ×2 (10:26→21:37)
[2022-10-09] MEDS: SIMETHICONE 80 MG TAB.CHEW (FP) PO SCH ×4 (10:26→21:38)
[2022-10-09] MEDS: FAMOTIDINE 20 MG TABLET PO SCH ×2 (10:27→21:38)
[2022-10-09] MEDS: HYDROCORTISONE 2.5% TOPICAL CREAM 30 GM TUBE TP SCH (10:33)
[2022-10-09] MEDS: LIPASE/PROTEASE/AMYLASE 36,000 UNIT CAPSULE PO SCH ×3 (10:34→16:44)
[2022-10-09] MEDS: FLUTICASONE/UMECLIDIN/VILANTER(200-62.5-25 TRELEGY ELLIPTA) INAHLER IH SCH (10:35)
[2022-10-09] MEDS: EZETIMIBE 10 MG TABLET (FP) PO SCH (10:35)
[2022-10-09] MEDS: ROFLUMILAST 500 MCG TABLET PO SCH (10:36)
[2022-10-09 12:20] LABS: POTASSIUM 4.6 mmol/L (3.5-5.1)
[2022-10-09 13:23] LABS: CALCIUM 8.3 mg/dL (8.5-10.1)
[2022-10-09 13:24] LABS: ALBUMIN 2.4 g/dl (3.4-5.0); BLOOD UREA NITROGEN 9.3 mg/dL (7-18); MAGNESIUM 2.4 mg/dL (1.8-2.4)
[2022-10-09 13:26] LABS: CREATININE 0.8 mg/dL (0.55-1.3); PHOSPHOROUS 3.2 mg/dL (2.5-4.9)
[2022-10-09 13:27] LABS: TOT PROT 4.6 g/dl (6.4-8.2)
[2022-10-09 13:28] LABS: BILIRUBIN,TOTAL 0.4 mg/dL (0.2-1)
[2022-10-09] MEDS: ATORVASTATIN CA 40 MG TABLET (FP) PO SCH (21:37)
[2022-10-09] MEDS: MELATONIN 5 MG TABLETS PO SCH (21:38)
[2022-10-09] MEDS: MONTELUKAST NA 10 MG TABLET PO SCH (21:38)
[2022-10-09] MEDS: GABAPENTIN 300 MG CAPSULE PO SCH (21:38)
[2022-10-09] MEDS: SENNOSIDES 8.8 MG/5 ML SYRUP PO SCH (21:38)
[2022-10-09] MEDS: ZOLPIDEM TARTRATE 5 MG TABLET PO PRN (21:38)
[2022-10-10] MEDS: POLYETHYLENE GLYCOL (HEALTHYLAX) 3350 17 GM PACKET PO SCH ×3 (07:00→22:21)
[2022-10-10] MEDS: GABAPENTIN 100 MG CAPSULE PO SCH ×3 (07:01→17:21)
[2022-10-10 07:49] LABS: HEMATOCRIT 27.7 % (35.4-49); HEMOGLOBIN 8.7 GM/dL (11.7-16.9); MCH 26.1 pg (25.7-33.7); MCHC 31.5 g/dl (32.0-35.9); MEAN CELL VOLUME 82.9 fl (80-96); MEAN PLT VOLUME 7.2 fl (7.5-11.1); PLATELET COUNT 121 10^3/uL (134-434); RBC 3.34 M/mm3 (4.00-5.60); RDW 19.3 % (11.9-15.9); WHITE BLOOD COUNT 13.3 K/mm3 (4.0-10.0)
[2022-10-10 08:07] LABS: POTASSIUM 4.8 mmol/L (3.5-5.1)
[2022-10-10] MEDS: LIPASE/PROTEASE/AMYLASE 36,000 UNIT CAPSULE PO SCH (08:14)
[2022-10-10 08:15] LABS: ALBUMIN 2.6 g/dl (3.4-5.0); PHOSPHOROUS 3.6 mg/dL (2.5-4.9)
[2022-10-10 08:16] LABS: BLOOD UREA NITROGEN 7.9 mg/dL (7-18)
[2022-10-10 08:17] LABS: BILIRUBIN,TOTAL 0.5 mg/dL (0.2-1); TOT PROT 4.9 g/dl (6.4-8.2)
[2022-10-10 08:18] LABS: CALCIUM 8.6 mg/dL (8.5-10.1)
[2022-10-10 08:19] LABS: CREATININE 0.8 mg/dL (0.55-1.3); MAGNESIUM 2.2 mg/dL (1.8-2.4)
[2022-10-10] MEDS: ROFLUMILAST 500 MCG TABLET PO SCH (09:32)
[2022-10-10] MEDS: predniSONE 20 MG TABLET (UD) PO SCH (09:32)
[2022-10-10] MEDS: EZETIMIBE 10 MG TABLET (FP) PO SCH (09:32)
[2022-10-10] MEDS: HYDROCORTISONE 2.5% TOPICAL CREAM 30 GM TUBE TP SCH (09:33)
[2022-10-10] MEDS: SULFAMETHOXAZOLE/TRIMETHOPRIM 800MG/160MG D.S. TABLET PO SCH ×2 (09:33→22:20)
[2022-10-10] MEDS: FAMOTIDINE 20 MG TABLET PO SCH ×2 (09:33→22:22)
[2022-10-10] MEDS: SIMETHICONE 80 MG TAB.CHEW (FP) PO SCH ×4 (09:33→22:22)
[2022-10-10] MEDS: LIPASE/PROTEASE/AMYLASE 1 CAP, LIPASE/PROTEASE/AMYLASE 2 CAP PO SCH ×3 (09:34→17:25)
[2022-10-10] MEDS: FLUTICASONE/UMECLIDIN/VILANTER(200-62.5-25 TRELEGY ELLIPTA) INAHLER IH SCH (09:35)
[2022-10-10] MEDS: ENOXAPARIN NA (PORCINE) 80 MG/0.8 ML DISP.SYRIN SQ SCH ×2 (09:35→23:54)
[2022-10-10] MEDS ORDERED: DOCUSATE SODIUM 100 MG CAPSULE (FP) PO SCH (22:00)
[2022-10-10] MEDS: MELATONIN 5 MG TABLETS PO SCH (22:20)
[2022-10-10] MEDS: ATORVASTATIN CA 40 MG TABLET (FP) PO SCH (22:21)
[2022-10-10] MEDS: GABAPENTIN 300 MG CAPSULE PO SCH (22:22)
[2022-10-10] MEDS: ZOLPIDEM TARTRATE 5 MG TABLET PO PRN (22:22)
[2022-10-10] MEDS: MONTELUKAST NA 10 MG TABLET PO SCH (22:22)
[2022-10-11] MEDS: POLYETHYLENE GLYCOL (HEALTHYLAX) 3350 17 GM PACKET PO SCH ×3 (06:27→21:41)
[2022-10-11] MEDS: GABAPENTIN 100 MG CAPSULE PO SCH ×3 (06:27→17:48)
[2022-10-11 07:23] LABS: HEMATOCRIT 27.5 % (35.4-49); HEMOGLOBIN 8.7 GM/dL (11.7-16.9); MCH 26.3 pg (25.7-33.7); MCHC 31.6 g/dl (32.0-35.9); MEAN CELL VOLUME 83.3 fl (80-96); MEAN PLT VOLUME 7.8 fl (7.5-11.1); PLATELET COUNT 129 10^3/uL (134-434); RDW 18.8 % (11.9-15.9); WHITE BLOOD COUNT 9.6 K/mm3 (4.0-10.0)
[2022-10-11 07:43] LABS: POTASSIUM 4.5 mmol/L (3.5-5.1)
[2022-10-11 07:49] LABS: CALCIUM 8.6 mg/dL (8.5-10.1)
[2022-10-11 07:50] LABS: ALBUMIN 2.6 g/dl (3.4-5.0); MAGNESIUM 2.3 mg/dL (1.8-2.4)
[2022-10-11 07:52] LABS: CREATININE 0.9 mg/dL (0.55-1.3); PHOSPHOROUS 4.1 mg/dL (2.5-4.9)
[2022-10-11 07:54] LABS: BILIRUBIN,TOTAL 0.3 mg/dL (0.2-1)
[2022-10-11] MEDS: LIPASE/PROTEASE/AMYLASE 1 CAP, LIPASE/PROTEASE/AMYLASE 2 CAP PO SCH ×3 (08:54→17:47)
[2022-10-11] MEDS: FLUTICASONE/UMECLIDIN/VILANTER(200-62.5-25 TRELEGY ELLIPTA) INAHLER IH SCH (09:40)
[2022-10-11] MEDS: FAMOTIDINE 20 MG TABLET PO SCH ×2 (09:41→21:41)
[2022-10-11] MEDS: ENOXAPARIN NA (PORCINE) 80 MG/0.8 ML DISP.SYRIN SQ SCH ×2 (09:41→21:41)
[2022-10-11] MEDS: predniSONE 20 MG TABLET (UD) PO SCH (09:41)
[2022-10-11] MEDS: SULFAMETHOXAZOLE/TRIMETHOPRIM 800MG/160MG D.S. TABLET PO SCH ×2 (09:41→21:40)
[2022-10-11] MEDS: SIMETHICONE 80 MG TAB.CHEW (FP) PO SCH ×2 (09:42→13:22)
[2022-10-11] MEDS: HYDROCORTISONE 2.5% TOPICAL CREAM 30 GM TUBE TP SCH (09:47)
[2022-10-11] MEDS: ROFLUMILAST 500 MCG TABLET PO SCH (09:48)
[2022-10-11] MEDS: EZETIMIBE 10 MG TABLET (FP) PO SCH (09:48)
[2022-10-11] MEDS: MAG HYDROX/AL HYDROX/SIMETH 30 ML UNIT-DOSE CUP PO SCH ×2 (13:39→17:47)
[2022-10-11] MEDS: ALBUTEROL SO4 0.083% IH SOL 2.5 MG/3 ML VIAL.NEB. NEB PRN ×2 (17:00→23:51)
[2022-10-11] MEDS: ATORVASTATIN CA 40 MG TABLET (FP) PO SCH (21:40)
[2022-10-11] MEDS: MELATONIN 5 MG TABLETS PO SCH (21:40)
[2022-10-11] MEDS: GABAPENTIN 300 MG CAPSULE PO SCH (21:40)
[2022-10-11] MEDS: MONTELUKAST NA 10 MG TABLET PO SCH (21:41)
[2022-10-11] MEDS: ZOLPIDEM TARTRATE 5 MG TABLET PO PRN (23:51)
[2022-10-12] MEDS: MAG HYDROX/AL HYDROX/SIMETH 30 ML UNIT-DOSE CUP PO SCH ×4 (01:11→17:01)
[2022-10-12] MEDS: POLYETHYLENE GLYCOL (HEALTHYLAX) 3350 17 GM PACKET PO SCH ×3 (05:44→22:24)
[2022-10-12] MEDS: GABAPENTIN 100 MG CAPSULE PO SCH ×3 (05:44→17:01)
[2022-10-12] MEDS: ALBUTEROL SO4 0.083% IH SOL 2.5 MG/3 ML VIAL.NEB. NEB PRN ×3 (05:49→14:00)
[2022-10-12 07:46] LABS: HEMATOCRIT 28.9 % (35.4-49); HEMOGLOBIN 9.2 GM/dL (11.7-16.9); MCH 26.2 pg (25.7-33.7); MCHC 31.7 g/dl (32.0-35.9); MEAN CELL VOLUME 82.7 fl (80-96); MEAN PLT VOLUME 7.5 fl (7.5-11.1); PLATELET COUNT 129 10^3/uL (134-434); RDW 19.3 % (11.9-15.9); WHITE BLOOD COUNT 9.3 K/mm3 (4.0-10.0)
[2022-10-12 07:56] LABS: POTASSIUM 3.7 mmol/L (3.5-5.1)
[2022-10-12 08:08] LABS: ALBUMIN 2.7 g/dl (3.4-5.0); BLOOD UREA NITROGEN 11.2 mg/dL (7-18); MAGNESIUM 2.4 mg/dL (1.8-2.4)
[2022-10-12 08:09] LABS: CALCIUM 8.5 mg/dL (8.5-10.1)
[2022-10-12 08:11] LABS: CREATININE 0.8 mg/dL (0.55-1.3); PHOSPHOROUS 3.3 mg/dL (2.5-4.9)
[2022-10-12 08:12] LABS: BILIRUBIN,TOTAL 0.4 mg/dL (0.2-1); TOT PROT 5.2 g/dl (6.4-8.2)
[2022-10-12] MEDS: LIPASE/PROTEASE/AMYLASE 1 CAP, LIPASE/PROTEASE/AMYLASE 2 CAP PO SCH ×3 (09:29→16:54)
[2022-10-12] MEDS: SULFAMETHOXAZOLE/TRIMETHOPRIM 800MG/160MG D.S. TABLET PO SCH ×2 (09:30→22:24)
[2022-10-12] MEDS: FAMOTIDINE 20 MG TABLET PO SCH ×2 (09:30→22:24)
[2022-10-12] MEDS: HYDROCORTISONE 2.5% TOPICAL CREAM 30 GM TUBE TP SCH (09:30)
[2022-10-12] MEDS: ROFLUMILAST 500 MCG TABLET PO SCH (09:30)
[2022-10-12] MEDS: EZETIMIBE 10 MG TABLET (FP) PO SCH (09:30)
[2022-10-12] MEDS: ENOXAPARIN NA (PORCINE) 80 MG/0.8 ML DISP.SYRIN SQ SCH ×2 (09:30→22:23)
[2022-10-12] MEDS: predniSONE 20 MG TABLET (UD) PO SCH (09:30)
[2022-10-12] MEDS: FLUTICASONE/UMECLIDIN/VILANTER(200-62.5-25 TRELEGY ELLIPTA) INAHLER IH SCH (09:31)
[2022-10-12] MEDS: BUDESONIDE 0.5 MG/2 ML INH SUSP VIAL NEB SCH ×2 (12:36→21:12)
[2022-10-12] MEDS ORDERED: LORazepam 0.5 MG TABLET PO ONE ×2 (16:37→19:08)
[2022-10-12] MEDS: MELATONIN 5 MG TABLETS PO SCH (22:24)
[2022-10-12] MEDS: GABAPENTIN 300 MG CAPSULE PO SCH (22:24)
[2022-10-12] MEDS: MONTELUKAST NA 10 MG TABLET PO SCH (22:24)
[2022-10-12] MEDS: ATORVASTATIN CA 40 MG TABLET (FP) PO SCH (22:24)
[2022-10-12] MEDS: ZOLPIDEM TARTRATE 5 MG TABLET PO PRN (22:37)
[2022-10-13] MEDS: MAG HYDROX/AL HYDROX/SIMETH 30 ML UNIT-DOSE CUP PO SCH ×4 (01:41→17:40)
[2022-10-13] MEDS: GABAPENTIN 100 MG CAPSULE PO SCH ×3 (05:52→17:40)
[2022-10-13] MEDS: POLYETHYLENE GLYCOL (HEALTHYLAX) 3350 17 GM PACKET PO SCH ×2 (05:52→13:15)
[2022-10-13 07:56] LABS: HEMATOCRIT 28.2 % (35.4-49); HEMOGLOBIN 9.1 GM/dL (11.7-16.9); MCH 27.1 pg (25.7-33.7); MCHC 32.1 g/dl (32.0-35.9); MEAN CELL VOLUME 84.4 fl (80-96); MEAN PLT VOLUME 7.5 fl (7.5-11.1); PLATELET COUNT 131 10^3/uL (134-434); RBC 3.34 M/mm3 (4.00-5.60); RDW 19.6 % (11.9-15.9); WHITE BLOOD COUNT 9.6 K/mm3 (4.0-10.0)
[2022-10-13 08:13] LABS: ALBUMIN 2.8 g/dl (3.4-5.0); BLOOD UREA NITROGEN 10.2 mg/dL (7-18); CALCIUM 8.4 mg/dL (8.5-10.1); MAGNESIUM 2.4 mg/dL (1.8-2.4)
[2022-10-13 08:16] LABS: CREATININE 0.9 mg/dL (0.55-1.3); PHOSPHOROUS 2.8 mg/dL (2.5-4.9)
[2022-10-13 08:18] LABS: BILIRUBIN,TOTAL 0.3 mg/dL (0.2-1)
[2022-10-13] MEDS: LIPASE/PROTEASE/AMYLASE 1 CAP, LIPASE/PROTEASE/AMYLASE 2 CAP PO SCH ×3 (09:37→18:56)
[2022-10-13] MEDS: ENOXAPARIN NA (PORCINE) 80 MG/0.8 ML DISP.SYRIN SQ SCH ×2 (09:37→21:41)
[2022-10-13] MEDS: HYDROCORTISONE 2.5% TOPICAL CREAM 30 GM TUBE TP SCH (09:38)
[2022-10-13] MEDS: FAMOTIDINE 20 MG TABLET PO SCH ×2 (09:38→21:40)
[2022-10-13] MEDS: SULFAMETHOXAZOLE/TRIMETHOPRIM 800MG/160MG D.S. TABLET PO SCH (09:38)
[2022-10-13] MEDS: ROFLUMILAST 500 MCG TABLET PO SCH (09:38)
[2022-10-13] MEDS: predniSONE 20 MG TABLET (UD) PO SCH (09:38)
[2022-10-13] MEDS: EZETIMIBE 10 MG TABLET (FP) PO SCH (09:38)
[2022-10-13] MEDS: FLUTICASONE/UMECLIDIN/VILANTER(200-62.5-25 TRELEGY ELLIPTA) INAHLER IH SCH (09:39)
[2022-10-13] MEDS: BUDESONIDE 0.5 MG/2 ML INH SUSP VIAL NEB SCH ×2 (09:42→20:37)
[2022-10-13] MEDS: ALBUTEROL SO4 0.083% IH SOL 2.5 MG/3 ML VIAL.NEB. NEB PRN ×2 (12:05→15:48)
[2022-10-13] MEDS: ATORVASTATIN CA 40 MG TABLET (FP) PO SCH (21:40)
[2022-10-13] MEDS: GABAPENTIN 300 MG CAPSULE PO SCH (21:40)
[2022-10-13] MEDS: MONTELUKAST NA 10 MG TABLET PO SCH (21:40)
[2022-10-13] MEDS: MELATONIN 5 MG TABLETS PO SCH (21:40)
[2022-10-13] MEDS: ZOLPIDEM TARTRATE 5 MG TABLET PO PRN (21:40)
[2022-10-14] MEDS ORDERED: ZOLPIDEM TARTRATE 5 MG TABLET PO ONE ×2 (01:46)
[2022-10-14] MEDS: MAG HYDROX/AL HYDROX/SIMETH 30 ML UNIT-DOSE CUP PO SCH ×4 (02:23→17:05)
[2022-10-14] MEDS: GABAPENTIN 100 MG CAPSULE PO SCH ×3 (05:06→17:05)
[2022-10-14 07:11] LABS: HEMATOCRIT 28.2 % (35.4-49); HEMOGLOBIN 8.9 GM/dL (11.7-16.9); MCH 26.6 pg (25.7-33.7); MCHC 31.6 g/dl (32.0-35.9); MEAN CELL VOLUME 84.2 fl (80-96); MEAN PLT VOLUME 7.6 fl (7.5-11.1); PLATELET COUNT 136 10^3/uL (134-434); RBC 3.35 M/mm3 (4.00-5.60); RDW 19.6 % (11.9-15.9); WHITE BLOOD COUNT 7.6 K/mm3 (4.0-10.0)
[2022-10-14] MEDS: BUDESONIDE 0.5 MG/2 ML INH SUSP VIAL NEB SCH ×2 (07:20→20:59)
[2022-10-14 07:44] LABS: POTASSIUM 4.4 mmol/L (3.5-5.1)
[2022-10-14 07:48] LABS: CALCIUM 8.3 mg/dL (8.5-10.1)
[2022-10-14 07:50] LABS: ALBUMIN 2.7 g/dl (3.4-5.0); BLOOD UREA NITROGEN 11.6 mg/dL (7-18); MAGNESIUM 2.5 mg/dL (1.8-2.4)
[2022-10-14 07:52] LABS: CREATININE 0.9 mg/dL (0.55-1.3)
[2022-10-14 07:53] LABS: BILIRUBIN,TOTAL 0.3 mg/dL (0.2-1); TOT PROT 4.9 g/dl (6.4-8.2)
[2022-10-14 07:59] LABS: PHOSPHOROUS 2.4 mg/dL (2.5-4.9)
[2022-10-14] MEDS: LIPASE/PROTEASE/AMYLASE 1 CAP, LIPASE/PROTEASE/AMYLASE 2 CAP PO SCH ×3 (08:34→17:05)
[2022-10-14] MEDS: HYDROCORTISONE 2.5% TOPICAL CREAM 30 GM TUBE TP SCH (09:55)
[2022-10-14] MEDS: POLYETHYLENE GLYCOL (HEALTHYLAX) 3350 17 GM PACKET PO SCH (09:55)
[2022-10-14] MEDS: ROFLUMILAST 500 MCG TABLET PO SCH (09:55)
[2022-10-14] MEDS: FAMOTIDINE 20 MG TABLET PO SCH ×2 (09:55→21:36)
[2022-10-14] MEDS: EZETIMIBE 10 MG TABLET (FP) PO SCH (09:55)
[2022-10-14] MEDS: ENOXAPARIN NA (PORCINE) 80 MG/0.8 ML DISP.SYRIN SQ SCH ×2 (09:55→21:35)
[2022-10-14] MEDS: predniSONE 10 MG TABLET (UD) PO SCH (09:55)
[2022-10-14] MEDS: FLUTICASONE/UMECLIDIN/VILANTER(200-62.5-25 TRELEGY ELLIPTA) INAHLER IH SCH (09:56)
[2022-10-14] MEDS: ALBUTEROL SO4 0.083% IH SOL 2.5 MG/3 ML VIAL.NEB. NEB PRN ×2 (11:43→15:13)
[2022-10-14] MEDS ORDERED: ZOLPIDEM TARTRATE 5 MG TABLET PO PRN ×2 (13:08→14:12)
[2022-10-14] MEDS ORDERED: NAPH,MB-DB/K PH,MBDB POWDER PACKET PO ONE ×2 (16:18→16:24)
[2022-10-14] MEDS: MONTELUKAST NA 10 MG TABLET PO SCH (21:36)
[2022-10-14] MEDS: ZOLPIDEM TARTRATE 5 MG TABLET PO PRN (21:36)
[2022-10-14] MEDS: ATORVASTATIN CA 40 MG TABLET (FP) PO SCH (21:36)
[2022-10-14] MEDS: MELATONIN 5 MG TABLETS PO SCH (21:36)
[2022-10-14] MEDS: GABAPENTIN 300 MG CAPSULE PO SCH (21:36)
[2022-10-15] MEDS: MAG HYDROX/AL HYDROX/SIMETH 30 ML UNIT-DOSE CUP PO SCH ×4 (05:23→17:33)
[2022-10-15] MEDS: GABAPENTIN 100 MG CAPSULE PO SCH ×3 (05:23→17:33)
[2022-10-15] MEDS: ALBUTEROL SO4 0.083% IH SOL 2.5 MG/3 ML VIAL.NEB. NEB PRN ×3 (08:25→15:10)
[2022-10-15] MEDS: LIPASE/PROTEASE/AMYLASE 1 CAP, LIPASE/PROTEASE/AMYLASE 2 CAP PO SCH ×3 (08:26→17:33)
[2022-10-15] MEDS: BUDESONIDE 0.5 MG/2 ML INH SUSP VIAL NEB SCH ×2 (08:35→20:48)
[2022-10-15 09:41] LABS: HEMATOCRIT 27.3 % (35.4-49); HEMOGLOBIN 8.9 GM/dL (11.7-16.9); MCH 27.1 pg (25.7-33.7); MCHC 32.7 g/dl (32.0-35.9); MEAN CELL VOLUME 82.9 fl (80-96); MEAN PLT VOLUME 7.8 fl (7.5-11.1); PLATELET COUNT 146 10^3/uL (134-434); RBC 3.29 M/mm3 (4.00-5.60); RDW 19.8 % (11.9-15.9); WHITE BLOOD COUNT 7.5 K/mm3 (4.0-10.0)
[2022-10-15] MEDS: predniSONE 10 MG TABLET (UD) PO SCH (09:43)
[2022-10-15] MEDS: ROFLUMILAST 500 MCG TABLET PO SCH (09:43)
[2022-10-15] MEDS: FAMOTIDINE 20 MG TABLET PO SCH ×2 (09:43→22:22)
[2022-10-15] MEDS: EZETIMIBE 10 MG TABLET (FP) PO SCH (09:43)
[2022-10-15] MEDS: ENOXAPARIN NA (PORCINE) 80 MG/0.8 ML DISP.SYRIN SQ SCH ×2 (09:44→22:21)
[2022-10-15] MEDS: HYDROCORTISONE 2.5% TOPICAL CREAM 30 GM TUBE TP SCH (09:45)
[2022-10-15] MEDS: FLUTICASONE/UMECLIDIN/VILANTER(200-62.5-25 TRELEGY ELLIPTA) INAHLER IH SCH (09:45)
[2022-10-15] MEDS: POLYETHYLENE GLYCOL (HEALTHYLAX) 3350 17 GM PACKET PO SCH (09:46)
[2022-10-15 10:15] LABS: POTASSIUM 3.8 mmol/L (3.5-5.1)
[2022-10-15 10:25] LABS: CALCIUM 8.1 mg/dL (8.5-10.1)
[2022-10-15 10:26] LABS: ALBUMIN 2.7 g/dl (3.4-5.0); BLOOD UREA NITROGEN 11.9 mg/dL (7-18); MAGNESIUM 2.5 mg/dL (1.8-2.4)
[2022-10-15 10:28] LABS: CREATININE 0.8 mg/dL (0.55-1.3)
[2022-10-15 10:29] LABS: PHOSPHOROUS 2.5 mg/dL (2.5-4.9)
[2022-10-15 10:31] LABS: BILIRUBIN,TOTAL 0.3 mg/dL (0.2-1)
[2022-10-15] MEDS ORDERED: predniSONE 20 MG TABLET (UD) PO SCH (12:50)
[2022-10-15] MEDS: MELATONIN 5 MG TABLETS PO SCH (22:21)
[2022-10-15] MEDS: MONTELUKAST NA 10 MG TABLET PO SCH (22:22)
[2022-10-15] MEDS: ATORVASTATIN CA 40 MG TABLET (FP) PO SCH (22:22)
[2022-10-15] MEDS: ZOLPIDEM TARTRATE 5 MG TABLET PO PRN (22:22)
[2022-10-15] MEDS: GABAPENTIN 300 MG CAPSULE PO SCH (22:22)
[2022-10-16] MEDS: MAG HYDROX/AL HYDROX/SIMETH 30 ML UNIT-DOSE CUP PO SCH ×4 (05:39→17:55)
[2022-10-16] MEDS: GABAPENTIN 100 MG CAPSULE PO SCH ×3 (05:39→17:54)
[2022-10-16] MEDS: BUDESONIDE 0.5 MG/2 ML INH SUSP VIAL NEB SCH ×2 (07:35→20:41)
[2022-10-16 08:34] LABS: HEMATOCRIT 27.3 % (35.4-49); HEMOGLOBIN 8.7 GM/dL (11.7-16.9); MCH 26.5 pg (25.7-33.7); MEAN CELL VOLUME 82.7 fl (80-96); MEAN PLT VOLUME 7.6 fl (7.5-11.1); PLATELET COUNT 174 10^3/uL (134-434); RDW 19.3 % (11.9-15.9); WHITE BLOOD COUNT 7.6 K/mm3 (4.0-10.0)
[2022-10-16 08:46] LABS: POTASSIUM 4.3 mmol/L (3.5-5.1)
[2022-10-16 08:49] LABS: CALCIUM 8.3 mg/dL (8.5-10.1)
[2022-10-16 08:50] LABS: ALBUMIN 2.6 g/dl (3.4-5.0); BLOOD UREA NITROGEN 10.7 mg/dL (7-18); MAGNESIUM 2.4 mg/dL (1.8-2.4)
[2022-10-16 08:53] LABS: CREATININE 0.7 mg/dL (0.55-1.3)
[2022-10-16 08:54] LABS: BILIRUBIN,TOTAL 0.2 mg/dL (0.2-1); TOT PROT 4.8 g/dl (6.4-8.2)
[2022-10-16] MEDS: ENOXAPARIN NA (PORCINE) 80 MG/0.8 ML DISP.SYRIN SQ SCH ×2 (10:37→21:57)
[2022-10-16] MEDS: POLYETHYLENE GLYCOL (HEALTHYLAX) 3350 17 GM PACKET PO SCH (10:38)
[2022-10-16] MEDS: FAMOTIDINE 20 MG TABLET PO SCH ×2 (10:38→21:58)
[2022-10-16] MEDS: ROFLUMILAST 500 MCG TABLET PO SCH (10:38)
[2022-10-16] MEDS: EZETIMIBE 10 MG TABLET (FP) PO SCH (10:38)
[2022-10-16] MEDS: FLUTICASONE/UMECLIDIN/VILANTER(200-62.5-25 TRELEGY ELLIPTA) INAHLER IH SCH (10:39)
[2022-10-16] MEDS: HYDROCORTISONE 2.5% TOPICAL CREAM 30 GM TUBE TP SCH (10:39)
[2022-10-16] MEDS: ALBUTEROL SO4 0.083% IH SOL 2.5 MG/3 ML VIAL.NEB. NEB PRN ×2 (10:50→14:00)
[2022-10-16] MEDS: LIPASE/PROTEASE/AMYLASE 36,000 UNIT CAPSULE PO SCH ×2 (12:27→17:55)
[2022-10-16] MEDS: MONTELUKAST NA 10 MG TABLET PO SCH (21:57)
[2022-10-16] MEDS: GABAPENTIN 300 MG CAPSULE PO SCH (21:58)
[2022-10-16] MEDS: MELATONIN 5 MG TABLETS PO SCH (21:58)
[2022-10-16] MEDS: ATORVASTATIN CA 40 MG TABLET (FP) PO SCH (21:58)
[2022-10-16] MEDS: ZOLPIDEM TARTRATE 5 MG TABLET PO PRN (22:06)
[2022-10-17] MEDS: MAG HYDROX/AL HYDROX/SIMETH 30 ML UNIT-DOSE CUP PO SCH ×4 (00:13→18:15)
[2022-10-17] MEDS: GABAPENTIN 100 MG CAPSULE PO SCH ×3 (06:06→18:15)
[2022-10-17 07:54] LABS: POTASSIUM 3.8 mmol/L (3.5-5.1)
[2022-10-17 07:57] LABS: CALCIUM 8.2 mg/dL (8.5-10.1)
[2022-10-17 07:58] LABS: ALBUMIN 2.6 g/dl (3.4-5.0); BLOOD UREA NITROGEN 12.2 mg/dL (7-18); MAGNESIUM 2.2 mg/dL (1.8-2.4)
[2022-10-17 08:00] LABS: PHOSPHOROUS 2.9 mg/dL (2.5-4.9)
[2022-10-17 08:01] LABS: CREATININE 0.6 mg/dL (0.55-1.3)
[2022-10-17 08:02] LABS: BILIRUBIN,TOTAL 0.2 mg/dL (0.2-1); TOT PROT 4.8 g/dl (6.4-8.2)
[2022-10-17 08:04] LABS: HEMATOCRIT 26.2 % (35.4-49); HEMOGLOBIN 8.2 GM/dL (11.7-16.9); MCH 26.4 pg (25.7-33.7); MCHC 31.2 g/dl (32.0-35.9); MEAN CELL VOLUME 84.5 fl (80-96); PLATELET COUNT 199 10^3/uL (134-434); RDW 19.9 % (11.9-15.9); WHITE BLOOD COUNT 7.2 K/mm3 (4.0-10.0)
[2022-10-17] MEDS: BUDESONIDE 0.5 MG/2 ML INH SUSP VIAL NEB SCH ×2 (09:40→20:00)
[2022-10-17] MEDS: ENOXAPARIN NA (PORCINE) 80 MG/0.8 ML DISP.SYRIN SQ SCH ×2 (10:08→22:02)
[2022-10-17] MEDS: POLYETHYLENE GLYCOL (HEALTHYLAX) 3350 17 GM PACKET PO SCH (10:08)
[2022-10-17] MEDS: HYDROCORTISONE 2.5% TOPICAL CREAM 30 GM TUBE TP SCH (10:09)
[2022-10-17] MEDS: EZETIMIBE 10 MG TABLET (FP) PO SCH (10:09)
[2022-10-17] MEDS: FAMOTIDINE 20 MG TABLET PO SCH ×2 (10:09→22:03)
[2022-10-17] MEDS: LIPASE/PROTEASE/AMYLASE 36,000 UNIT CAPSULE PO SCH ×3 (10:09→18:15)
[2022-10-17] MEDS: ROFLUMILAST 500 MCG TABLET PO SCH (10:09)
[2022-10-17] MEDS: FLUTICASONE/UMECLIDIN/VILANTER(200-62.5-25 TRELEGY ELLIPTA) INAHLER IH SCH (10:09)
[2022-10-17] MEDS: predniSONE 20 MG TABLET (UD) PO SCH (13:40)
[2022-10-17] MEDS: ALBUTEROL SO4 0.083% IH SOL 2.5 MG/3 ML VIAL.NEB. NEB PRN (16:00)
[2022-10-17] MEDS: GABAPENTIN 300 MG CAPSULE PO SCH (22:03)
[2022-10-17] MEDS: MONTELUKAST NA 10 MG TABLET PO SCH (22:03)
[2022-10-17] MEDS: ZOLPIDEM TARTRATE 5 MG TABLET PO PRN (22:03)
[2022-10-17] MEDS: MELATONIN 5 MG TABLETS PO SCH (22:03)
[2022-10-17] MEDS: ATORVASTATIN CA 40 MG TABLET (FP) PO SCH (22:03)
[2022-10-18] MEDS: GABAPENTIN 100 MG CAPSULE PO SCH ×3 (05:26→17:51)
[2022-10-18] MEDS: MAG HYDROX/AL HYDROX/SIMETH 30 ML UNIT-DOSE CUP PO SCH ×4 (06:01→17:51)
[2022-10-18] MEDS: BUDESONIDE 0.5 MG/2 ML INH SUSP VIAL NEB SCH ×2 (07:15→20:35)
[2022-10-18 07:37] LABS: HEMATOCRIT 25.8 % (35.4-49); HEMOGLOBIN 8.3 GM/dL (11.7-16.9); MCH 26.7 pg (25.7-33.7); MCHC 32.3 g/dl (32.0-35.9); MEAN CELL VOLUME 82.7 fl (80-96); MEAN PLT VOLUME 7.7 fl (7.5-11.1); PLATELET COUNT 237 10^3/uL (134-434); RBC 3.13 M/mm3 (4.00-5.60); RDW 19.4 % (11.9-15.9); WHITE BLOOD COUNT 6.7 K/mm3 (4.0-10.0)
[2022-10-18 07:59] LABS: POTASSIUM 4.1 mmol/L (3.5-5.1)
[2022-10-18 08:21] LABS: CALCIUM 8.1 mg/dL (8.5-10.1)
[2022-10-18 08:22] LABS: ALBUMIN 2.5 g/dl (3.4-5.0); BLOOD UREA NITROGEN 12.8 mg/dL (7-18); MAGNESIUM 2.4 mg/dL (1.8-2.4)
[2022-10-18 08:25] LABS: CREATININE 0.6 mg/dL (0.55-1.3); PHOSPHOROUS 2.7 mg/dL (2.5-4.9)
[2022-10-18 08:26] LABS: BILIRUBIN,TOTAL 0.3 mg/dL (0.2-1)
[2022-10-18] MEDS: ROFLUMILAST 500 MCG TABLET PO SCH (09:39)
[2022-10-18] MEDS: predniSONE 20 MG TABLET (UD) PO SCH (09:39)
[2022-10-18] MEDS: ENOXAPARIN NA (PORCINE) 80 MG/0.8 ML DISP.SYRIN SQ SCH (09:39)
[2022-10-18] MEDS: FAMOTIDINE 20 MG TABLET PO SCH ×2 (09:39→21:48)
[2022-10-18] MEDS: HYDROCORTISONE 2.5% TOPICAL CREAM 30 GM TUBE TP SCH (09:39)
[2022-10-18] MEDS: EZETIMIBE 10 MG TABLET (FP) PO SCH (09:39)
[2022-10-18] MEDS: FLUTICASONE/UMECLIDIN/VILANTER(200-62.5-25 TRELEGY ELLIPTA) INAHLER IH SCH (09:40)
[2022-10-18] MEDS: LIPASE/PROTEASE/AMYLASE 36,000 UNIT CAPSULE PO SCH ×3 (09:40→17:51)
[2022-10-18] MEDS: POLYETHYLENE GLYCOL (HEALTHYLAX) 3350 17 GM PACKET PO SCH (09:41)
[2022-10-18] MEDS: ALBUTEROL SO4 0.083% IH SOL 2.5 MG/3 ML VIAL.NEB. NEB PRN (15:19)
[2022-10-18] MEDS: ZOLPIDEM TARTRATE 5 MG TABLET PO PRN (21:47)
[2022-10-18] MEDS: MELATONIN 5 MG TABLETS PO SCH (21:48)
[2022-10-18] MEDS: ATORVASTATIN CA 40 MG TABLET (FP) PO SCH (21:48)
[2022-10-18] MEDS: GABAPENTIN 300 MG CAPSULE PO SCH (21:48)
[2022-10-18] MEDS: APIXABAN 5 MG TABLET PO SCH (21:48)
[2022-10-18] MEDS: MONTELUKAST NA 10 MG TABLET PO SCH (21:49)
[2022-10-19] MEDS: MAG HYDROX/AL HYDROX/SIMETH 30 ML UNIT-DOSE CUP PO SCH ×2 (00:51→06:22)
[2022-10-19 06:09] VITALS: TEMP 97.5
[2022-10-19] MEDS: GABAPENTIN 100 MG CAPSULE PO SCH (06:22)
[2022-10-19] MEDS: BUDESONIDE 0.5 MG/2 ML INH SUSP VIAL NEB SCH (07:15)
[2022-10-19] MEDS: LIPASE/PROTEASE/AMYLASE 36,000 UNIT CAPSULE PO SCH (08:24)
[2022-10-19] MEDS: FAMOTIDINE 20 MG TABLET PO SCH (10:17)
[2022-10-19] MEDS: predniSONE 20 MG TABLET (UD) PO SCH (10:17)
[2022-10-19] MEDS: APIXABAN 5 MG TABLET PO SCH (10:17)
[2022-10-19] MEDS: FLUTICASONE/UMECLIDIN/VILANTER(200-62.5-25 TRELEGY ELLIPTA) INAHLER IH SCH (10:18)
[2022-10-19] MEDS: POLYETHYLENE GLYCOL (HEALTHYLAX) 3350 17 GM PACKET PO SCH (10:18)
[2022-10-19] MEDS ORDERED: EZETIMIBE 10 MG TABLET (FP) PO SCH ×2 (10:21→22:00)
[2022-10-19] MEDS: HYDROCORTISONE 2.5% TOPICAL CREAM 30 GM TUBE TP SCH (10:22)
[2022-10-19] MEDS: EZETIMIBE 10 MG TABLET (FP) PO SCH (10:25)
[2022-10-19 12:25] VITALS: BP 114/60; PULSE 76; RESP 19
== END 2022-10-19 12:00 | DRG 987 ==
LOC: JER 15:58 → JERBED 20:20 → J4W 09-21 09:22 → J8W 10-08 16:38 → J4W 10-08 16:38
PROVIDERS: ADMIT Internal Medicine; ATTEND Internal Medicine
PROC: 06BY0ZC Excision of Hemorrhoidal Plexus, Open Approach (ICD-10-PCS; principal; 2022-10-02 12:30)
PROC: 06H03DZ Insertion of Intraluminal Device into Inferior Vena Cava, Percutaneous Approach (ICD-10-PCS; 2022-10-03)
DX: I26.99 Other pulmonary embolism without acute cor pulmonale (principal); J18.9 Pneumonia, unspecified organism; J96.21 Acute and chronic respiratory failure with hypoxia; J96.22 Acute and chronic respiratory failure with hypercapnia; J44.1 Chronic obstructive pulmonary disease with (acute) exacerbation; J98.11 Atelectasis; K92.2 Gastrointestinal hemorrhage, unspecified; J44.9 Chronic obstructive pulmonary disease, unspecified; E78.5 Hyperlipidemia, unspecified; C61 Malignant neoplasm of prostate; D72.829 Elevated white blood cell count, unspecified; Z99.81 Dependence on supplemental oxygen; I25.10 Atherosclerotic heart disease of native coronary artery without angina pectoris; I48.0 Paroxysmal atrial fibrillation; N40.0 Benign prostatic hyperplasia without lower urinary tract symptoms; K64.9 Unspecified hemorrhoids; D50.9 Iron deficiency anemia, unspecified
CPT/HCPCS: 0241U-QW; 36415; 36430; 36600; 37191; 71045-TC-FY; 71275-TC; 80048; 80053; 82272; 82378; 82803; 82962; 83735; 83880; 84100; 84153; 84484; 85025; 85027; 85610; 85730; 86301; 86850; 86900; 86901; 86922; 87070; 87077; 87186; 87205; 87635; 87899; 88304-TC; 88305-TC; 88341-TC; 93005; 93010; 93306-TC; 93970-TC; 94010; 94640; 94760; 94761; 97116-GP; 97162-GP; 99285-25; J1644; P9058

== ENCOUNTER 2022-10-23 18:42 | Emergency (ER) | payer OTHER, BC ==
[2022-10-23 19:17] VITALS: BMI 23.7
[2022-10-23 19:54] LABS: BASO % 0.1 % (0-2.0); HEMATOCRIT 29.6 % (35.4-49); HEMOGLOBIN 9.1 GM/dL (11.7-16.9); LYMPH % 5.9 % (8-40); MCH 25.7 pg (25.7-33.7); MCHC 30.9 g/dl (32.0-35.9); MEAN CELL VOLUME 83.3 fl (80-96); MEAN PLT VOLUME 6.8 fl (7.5-11.1); MONO % 9.3 % (3.8-10.2); NEUT % 84.7 % (42.8-82.8); PLATELET COUNT 380 10^3/uL (134-434); RBC 3.55 M/mm3 (4.00-5.60); RDW 19.8 % (11.9-15.9); WHITE BLOOD COUNT 6.6 K/mm3 (4.0-10.0)
[2022-10-23 20:03] LABS: INR 1.28 (0.83-1.09); PROTHROMBIN TIME (PATIENT) 14.8 SEC (9.7-13.0)
[2022-10-23 20:19] LABS: POTASSIUM 4.6 mmol/L (3.5-5.1)
[2022-10-23 20:20] LABS: CALCIUM 8.8 mg/dL (8.5-10.1)
[2022-10-23 20:21] LABS: BLOOD UREA NITROGEN 20.3 mg/dL (7-18)
[2022-10-23 20:24] LABS: CREATININE 0.8 mg/dL (0.55-1.3)
[2022-10-23 20:26] LABS: BILIRUBIN,TOTAL 0.2 mg/dL (0.2-1); TOT PROT 5.6 g/dl (6.4-8.2)
[2022-10-23 20:41] LABS: ANISOCYTOSIS 2+; MACROCYTOSIS 0; OVALOCYTE 1+
[2022-10-24] MEDS ORDERED: ALBUTEROL SO4 2.5/IPRATROPIUM 0.5 INH SOL 3 ML VIAL.NEB. NEB ONE (01:36)
[2022-10-24] MEDS: ALBUTEROL SO4 2.5/IPRATROPIUM 0.5 INH SOL 3 ML VIAL.NEB. NEB SCH (01:41)
[2022-10-24 03:57] VITALS: BP 118/76; PULSE 78; RESP 16; TEMP 98.9
== END 2022-10-24 04:07 ==
LOC: JER 18:42
PROC: 3E0F7GC Introduction of Other Therapeutic Substance into Respiratory Tract, Via Natural or Artificial Opening (ICD-10-PCS; principal; 2022-10-24)
DX: J93.9 Pneumothorax, unspecified (principal); J44.9 Chronic obstructive pulmonary disease, unspecified; Z20.822 Contact with and (suspected) exposure to COVID-19
CPT/HCPCS: 0241U-QW; 36415; 71045-TC-FY; 71250-TC; 80053; 83735; 84484; 85025; 85610; 85730; 86850; 86900; 86901; 93005; 93010; 99285-25

== ENCOUNTER 2023-01-14 04:06 | Day surgery (SDC) | payer OTHER, BC ==
[2023-01-07 11:08] VITALS: BMI 23.7
[2023-01-14 09:35] VITALS: RESP 22
[2023-01-14 12:23] VITALS: BP 105/70; PULSE 78; TEMP 97.5
== END 2023-01-14 13:50 | disposition home or self-care (01) ==
LOC: JRADIR 04:06
PROVIDERS: ATTEND Student in an Organized Health Care Education/Training Program
PROC: 06PY3DZ Removal of Intraluminal Device from Lower Vein, Percutaneous Approach (ICD-10-PCS; principal; 2023-01-14)
DX: I82.409 Acute embolism and thrombosis of unspecified deep veins of unspecified lower extremity (principal)
CPT/HCPCS: 37193

== ENCOUNTER 2023-04-26 08:15 | Inpatient (IN) | payer OTHER, BC ==
[2023-04-26] MEDS: methylPREDNISolone NA SUCC 125 MG/2 ML VIAL IVPB ONE (09:43)
[2023-04-26] MEDS ORDERED: ALBUTEROL SO4 2.5/IPRATROPIUM 0.5 INH SOL 3 ML VIAL.NEB. NEB ONE ×2 (09:52→13:11)
[2023-04-26] MEDS ORDERED: methylPREDNISolone NA SUCC 125 MG/2 ML VIAL ONE (09:52)
[2023-04-26] MEDS: ALBUTEROL SO4 2.5/IPRATROPIUM 0.5 INH SOL 3 ML VIAL.NEB. NEB SCH (09:55)
[2023-04-26] MEDS: methylPREDNISolone NA SUCC 125 MG/2 ML VIAL IVPUSH ONE (10:22)
[2023-04-26] MEDS ORDERED: ALBUTEROL SO4 0.083% IH SOL 2.5 MG/3 ML VIAL.NEB. NEB ONE (10:33)
[2023-04-26] MEDS: ALBUTEROL SO4 0.083% IH SOL 2.5 MG/3 ML VIAL.NEB. NEB ONE (10:35)
[2023-04-26 10:52] LABS: BASO % 0.1 % (0-2.0); HEMATOCRIT 39.7 % (35.4-49); HEMOGLOBIN 13.4 GM/dL (11.7-16.9); LYMPH % 6.6 % (8-40); MCH 30.4 pg (25.7-33.7); MCHC 33.7 g/dl (32.0-35.9); MONO % 8.2 % (3.8-10.2); NEUT % 85.1 % (42.8-82.8); PLATELET COUNT 235 10^3/uL (134-434); RBC 4.41 M/mm3 (4.00-5.60); RDW 15.3 % (11.9-15.9)
[2023-04-26 10:53] LABS: VENOUS BASE EXCESS 0.3 mmol/L (-2-2); VENOUS O2 SATURATION 87.2 % (70-80); VENOUS PCO2 48.3 mmHg (38-52); VENOUS PH 7.356 (7.310-7.410)
[2023-04-26 10:56] LABS: INR 1.25 (0.83-1.09); PROTHROMBIN TIME (PATIENT) 14.5 SEC (9.7-13.0)
[2023-04-26 10:58] LABS: ACTIVATED PTT 22.9 SECONDS (25.2-36.5)
[2023-04-26 11:07] LABS: POTASSIUM 3.8 mmol/L (3.5-5.1)
[2023-04-26 11:09] LABS: BLOOD UREA NITROGEN 16.2 mg/dL (7-18); CALCIUM 9.3 mg/dL (8.5-10.1)
[2023-04-26 11:12] LABS: CREATININE 0.9 mg/dL (0.55-1.3)
[2023-04-26 11:14] LABS: BILIRUBIN,TOTAL 0.4 mg/dL (0.2-1); TOT PROT 5.6 g/dl (6.4-8.2)
[2023-04-26] MEDS ORDERED: KETAMINE HCL 200 MG/20 ML VIAL ONE (13:31)
[2023-04-26] MEDS ORDERED: dilTIAZem HCL 125 MG/25 ML - 25 ML VIAL ONE ×2 (13:36→13:48)
[2023-04-26] MEDS ORDERED: dilTIAZem HCL 50 MG/10 ML - 10 ML VIAL ONE (13:48)
[2023-04-26] MEDS: KETAMINE HCL 200 MG/20 ML VIAL IVPUSH ONE ×2 (14:38→16:50)
[2023-04-26] MEDS: NITROGLYCERIN 25MG/D5W 250ML 25 MG/250 ML ML IVPB SCH (14:38)
[2023-04-26] MEDS: DEXMEDETOMIDINE PREMIX 400 MCG/100 ML BAG IVPB SCH (14:39)
[2023-04-26] MEDS ORDERED: AMIODARONE IN DEXTROSE,ISO-OSM 360 MG/200 ML BAG ONE (18:14)
[2023-04-26] MEDS ORDERED: AMIODARONE IN DEXTROSE,ISO-OSM 150 MG/100 ML BAG ONE (18:14)
[2023-04-26] MEDS: DEXTROSE 5% IVPB ONE (18:15)
[2023-04-26] MEDS: WATER IVPB ONE (18:15)
[2023-04-26] MEDS: AMIODARONE HCL IVPB ONE (18:15)
[2023-04-26] MEDS: AMIODARONE IN DEXTROSE,ISO-OSM 360 MG/200 ML BAG IV SCH (18:25)
[2023-04-26] MEDS: DEXAMETHASONE SOD PHOSPHATE 10 MG/1 ML VIAL IVPUSH SCH (18:42)
[2023-04-26] MEDS ORDERED: HEPARIN NA (PORCINE) 5,000 UNITS/ML 1ML VIAL SQ SCH (22:00)
[2023-04-26] MEDS ORDERED: PIPERACILLIN/TAZOB 3.375 GM 3.375 GM in DEXTROSE 5%-WATER - 50 ML IVPB SCH (22:45)
[2023-04-26] MEDS: RIVAROXABAN 20 MG TABLET PO SCH (22:51)
[2023-04-26] MEDS: FAMOTIDINE 20 MG/50 ML IVPB 20 MG/50 ML MG IVPB SCH (22:52)
[2023-04-26] MEDS: CHLORHEXIDINE GLUCONATE 4% CLEANSER FOR DECOLONIZATION TP SCH (22:52)
[2023-04-26] MEDS: REMDESIVIR 200 MG in SODIUM CHLORIDE 250 ML IVPB ONE (22:52)
[2023-04-26] MEDS: MUPIROCIN 2% TOPICAL OINTMENT FOR DECOLONIZATION NS SCH (22:52)
[2023-04-26] MEDS: CEFTRIAXONE 1 GM in DEXTROSE 5%-WATER - 50 ML IVPB SCH (22:53)
[2023-04-26] MEDS: VANCOMYCIN/WATER FOR INJ (PEG) 1,000 MG/200 ML BAG IVPB ONE (22:53)
[2023-04-26] MEDS: MELATONIN 5 MG TABLETS PO SCH (22:55)
[2023-04-27 08:07] LABS: HEMATOCRIT 39.3 % (35.4-49); MCH 29.7 pg (25.7-33.7); MEAN CELL VOLUME 89.9 fl (80-96); MEAN PLT VOLUME 7.2 fl (7.5-11.1); PLATELET COUNT 207 10^3/uL (134-434); RBC 4.37 M/mm3 (4.00-5.60); RDW 14.5 % (11.9-15.9); WHITE BLOOD COUNT 7.8 K/mm3 (4.0-10.0)
[2023-04-27 08:33] LABS: POTASSIUM 3.8 mmol/L (3.5-5.1)
[2023-04-27 08:37] LABS: INR 1.12 (0.83-1.09)
[2023-04-27 08:40] LABS: ACTIVATED PTT 21.5 SECONDS (25.2-36.5); ALBUMIN 2.7 g/dl (3.4-5.0); BLOOD UREA NITROGEN 17.1 mg/dL (7-18); CALCIUM 8.5 mg/dL (8.5-10.1); MAGNESIUM 2.4 mg/dL (1.8-2.4)
[2023-04-27 08:43] LABS: BILIRUBIN,TOTAL 0.4 mg/dL (0.2-1); CREATININE 0.6 mg/dL (0.55-1.3)
[2023-04-27 08:44] LABS: PHOSPHOROUS 3.1 mg/dL (2.5-4.9)
[2023-04-27 08:45] LABS: N-TERMINAL BNP 2215.2 pg/ml (5-125); TOT PROT 5.3 g/dl (6.4-8.2)
[2023-04-27] MEDS: ALPRAZolam 1 MG TABLET PO PRN (09:20)
[2023-04-27 10:59] LABS: ANISOCYTOSIS 0; MACROCYTOSIS 0; OVALOCYTE 1+
[2023-04-27] MEDS: DOXYCYCLINE HYCLATE 100 MG CAPSULE PO SCH (18:13)
[2023-04-27] MEDS: MONTELUKAST NA 10 MG TABLET PO SCH (21:35)
[2023-04-27] MEDS ORDERED: MELATONIN 5 MG TABLETS PO SCH (22:00)
[2023-04-28] MEDS: ONDANSETRON 4 MG/2 ML VIAL IVPUSH PRN (03:05)
[2023-04-28 07:39] LABS: HEMATOCRIT 41.3 % (35.4-49); HEMOGLOBIN 14.3 GM/dL (11.7-16.9); INR 1.7 (0.83-1.09); MCH 30.7 pg (25.7-33.7); MCHC 34.6 g/dl (32.0-35.9); MEAN CELL VOLUME 88.8 fl (80-96); MEAN PLT VOLUME 7.2 fl (7.5-11.1); PLATELET COUNT 235 10^3/uL (134-434); PROTHROMBIN TIME (PATIENT) 19.6 SEC (9.7-13.0); RBC 4.65 M/mm3 (4.00-5.60); RDW 14.7 % (11.9-15.9); WHITE BLOOD COUNT 11.3 K/mm3 (4.0-10.0)
[2023-04-28 07:51] LABS: CHLORIDE 103 mmol/L (98-107); POTASSIUM 4.4 mmol/L (3.5-5.1); SODIUM 139 mmol/L (136-145)
[2023-04-28 08:00] LABS: CALCIUM 8.6 mg/dL (8.5-10.1)
[2023-04-28 08:01] LABS: ALBUMIN 2.6 g/dl (3.4-5.0); ANION GAP 7 mmol/L (4-13); BLOOD UREA NITROGEN 23.3 mg/dL (7-18); CO2 30 mmol/L (21-32); GLUCOSE,RANDOM 163 mg/dL (74-106); MAGNESIUM 2.4 mg/dL (1.8-2.4)
[2023-04-28 08:04] LABS: CREATININE 0.9 mg/dL (0.55-1.3); SGOT/AST 593 U/L (15-37)
[2023-04-28 08:05] LABS: BILIRUBIN,TOTAL 0.4 mg/dL (0.2-1)
[2023-04-28 08:06] LABS: TOT PROT 5.2 g/dl (6.4-8.2)
[2023-04-28 08:07] LABS: ALK PHOS 71 U/L (45-117)
[2023-04-28 08:17] LABS: SGPT/ALT 1314 U/L (13-61)
[2023-04-28 09:14] LABS: GAMMA GLUTAMYL TRANSPEPTIDASE 111 U/L (5-85)
[2023-04-28 09:18] LABS: BILIRUBIN,DIRECT 0.1 mg/dL (0.0-0.2)
[2023-04-28] MEDS ORDERED: RIVAROXABAN 20 MG TABLET PO SCH (10:00)
[2023-04-28 10:11] LABS: ERYTHROCYTE SEDIMENTATION RATE 5 mm/hr (0-20)
[2023-04-28 11:14] LABS: ANISOCYTOSIS 0; HELMET CELLS 0; HOWELL-JOLLY BODIES 0; MACROCYTOSIS 0; OVALOCYTE 0; ROULEAU 0; SICKELED CELLS 0; TARGET CELLS 0; TEAR DROP CELLS 0; TOXIC GRANULATION 0
[2023-04-28] MEDS: SODIUM CHLORIDE 1,000 ML IV STA (12:15)
[2023-04-28] MEDS: SODIUM CHLORIDE 0.9% 500 ML INFUS.BAG IV ONE ×2 (13:00→16:10)
[2023-04-28] MEDS: DEXMEDETOMIDINE PREMIX 400 MCG/100 ML BAG IVPB SCH (13:00)
[2023-04-28] MEDS: LEVALBUTEROL HCL 0.31 MG/3 ML VIAL.NEB IH PRN (15:02)
[2023-04-28 17:18] LABS: URINE APPEARANCE CLEAR; URINE BILIRUBIN NEGATIVE (NEGATIVE); URINE COLOR YELLOW; URINE GLUCOSE (UA) NEGATIVE (NEGATIVE); URINE KETONE NEGATIVE (NEGATIVE); URINE LEUK ESTERASE NEGATIVE (NEGATIVE); URINE NITRITE NEGATIVE (NEGATIVE); URINE PROTEIN NEGATIVE (NEGATIVE); URINE UROBILINOGEN 0.2 mg/dL (0.2-1.0)
[2023-04-28] MEDS: dilTIAZem HCL 30 MG TABLET PO SCH (17:21)
[2023-04-28] MEDS ORDERED: NOREPINEPHRINE 0.9 % NACL 8 MG/250 ML BAG IVPB SCH (17:45)
[2023-04-28] MEDS: BENZOCAINE/MENTH/CETYLPYRD CL 1 EACH LOZENGE MM PRN (18:37)
[2023-04-28] MEDS: methylPREDNISolone NA SUCC 40 MG/1 ML VIAL IVPUSH SCH (21:05)
[2023-04-29 07:29] LABS: HEMATOCRIT 39.8 % (35.4-49); HEMOGLOBIN 13.6 GM/dL (11.7-16.9); MCH 30.8 pg (25.7-33.7); MCHC 34.2 g/dl (32.0-35.9); MEAN CELL VOLUME 90.1 fl (80-96); MEAN PLT VOLUME 7.7 fl (7.5-11.1); PLATELET COUNT 202 10^3/uL (134-434); RBC 4.42 M/mm3 (4.00-5.60); RDW 14.6 % (11.9-15.9); WHITE BLOOD COUNT 10.5 K/mm3 (4.0-10.0)
[2023-04-29 07:59] LABS: POTASSIUM 4.1 mmol/L (3.5-5.1)
[2023-04-29 08:04] LABS: ALBUMIN 2.5 g/dl (3.4-5.0); BLOOD UREA NITROGEN 35.2 mg/dL (7-18); CALCIUM 8.1 mg/dL (8.5-10.1)
[2023-04-29 08:07] LABS: CREATININE 0.8 mg/dL (0.55-1.3)
[2023-04-29 08:09] LABS: BILIRUBIN,TOTAL 0.6 mg/dL (0.2-1); TOT PROT 4.8 g/dl (6.4-8.2)
[2023-04-29] MEDS ORDERED: IPRATROPIUM BR 0.02% 0.5 MG/2.5 ML VIAL.NEB. NEB PRN (09:47)
[2023-04-29] MEDS ORDERED: guaiFENesin/CODEINE 10 ML UNIT-DOSE CUPS PO PRN (10:46)
[2023-04-29] MEDS: ALPRAZolam 0.25 MG TABLET PO SCH ×2 (10:48→21:27)
[2023-04-29] MEDS: LEVALBUTEROL HCL 0.31 MG/3 ML VIAL.NEB IH ONE (15:10)
[2023-04-29] MEDS ORDERED: ONDANSETRON 4 MG/2 ML VIAL IVPUSH PRN (16:47)
[2023-04-29] MEDS: RIVAROXABAN 20 MG TABLET PO SCH (17:52)
[2023-04-29] MEDS: DOXYCYCLINE HYCLATE 100 MG CAPSULE PO SCH (17:52)
[2023-04-29] MEDS: GABAPENTIN 100 MG CAPSULE PO SCH (17:52)
[2023-04-29] MEDS: LEVALBUTEROL HCL 0.31 MG/3 ML VIAL.NEB IH PRN (20:27)
[2023-04-29] MEDS: IPRATROPIUM BR 0.02% 0.5 MG/2.5 ML VIAL.NEB. NEB PRN (20:27)
[2023-04-29] MEDS: GABAPENTIN 300 MG CAPSULE PO SCH (21:27)
[2023-04-29] MEDS: MONTELUKAST NA 10 MG TABLET PO SCH (21:27)
[2023-04-29] MEDS: FAMOTIDINE 20 MG/50 ML IVPB 20 MG/50 ML MG IVPB SCH (21:28)
[2023-04-29] MEDS: MELATONIN 5 MG TABLETS PO SCH (21:28)
[2023-04-29] MEDS ORDERED: CHLORHEXIDINE GLUCONATE 4% CLEANSER FOR DECOLONIZATION TP SCH (22:00)
[2023-04-29] MEDS ORDERED: MUPIROCIN 2% TOPICAL OINTMENT FOR DECOLONIZATION NS SCH (22:00)
[2023-04-30 07:10] LABS: HEMATOCRIT 39.3 % (35.4-49); HEMOGLOBIN 12.9 GM/dL (11.7-16.9); MCH 29.8 pg (25.7-33.7); MCHC 32.7 g/dl (32.0-35.9); MEAN CELL VOLUME 91.1 fl (80-96); MEAN PLT VOLUME 7.7 fl (7.5-11.1); PLATELET COUNT 205 10^3/uL (134-434); RBC 4.32 M/mm3 (4.00-5.60); RDW 14.6 % (11.9-15.9); WHITE BLOOD COUNT 12.7 K/mm3 (4.0-10.0)
[2023-04-30 07:53] LABS: ALBUMIN 2.3 g/dl (3.4-5.0); CALCIUM 8.4 mg/dL (8.5-10.1)
[2023-04-30 07:54] LABS: BLOOD UREA NITROGEN 34.7 mg/dL (7-18); MAGNESIUM 2.4 mg/dL (1.8-2.4)
[2023-04-30 07:56] LABS: CREATININE 0.9 mg/dL (0.55-1.3)
[2023-04-30 07:57] LABS: BILIRUBIN,TOTAL 0.4 mg/dL (0.2-1); PHOSPHOROUS 1.8 mg/dL (2.5-4.9)
[2023-04-30 07:58] LABS: TOT PROT 4.5 g/dl (6.4-8.2)
[2023-04-30] MEDS: SODIUM CHLORIDE 1,000 ML IV SCH (09:20)
[2023-04-30] MEDS: methylPREDNISolone NA SUCC 40 MG/1 ML VIAL IVPUSH SCH ×2 (09:20→11:30)
[2023-04-30] MEDS: guaiFENesin/CODEINE 10 ML UNIT-DOSE CUPS PO PRN (09:50)
[2023-04-30] MEDS: FLUTICASONE/UMECLIDIN/VILANTER(200-62.5-25 TRELEGY ELLIPTA) INAHLER IH SCH (10:14)
[2023-04-30] MEDS: SODIUM CHLORIDE 0.45% 1,000 ML IV SCH (10:43)
[2023-04-30] MEDS ORDERED: IPRATROPIUM BR 0.02% 0.5 MG/2.5 ML VIAL.NEB. NEB SCH ×2 (11:15→15:09)
[2023-04-30 12:43] LABS: ARTERIAL BLD GAS O2 SATURATION 98.9 % (95-98); ARTERIAL BLOOD GAS BASE EXCESS -0.2 mmol/L (-2-2); ARTERIAL BLOOD GAS PO2 145.2 mmHg (80-100); ARTERIAL BLOOD GAS pH 7.432 (7.350-7.450)
[2023-04-30 12:47] LABS: ALLENS TEST POSITIVE; VENT MODE S/T
[2023-04-30 12:48] LABS: VENT RATE 14
[2023-04-30] MEDS: IPRATROPIUM BR 0.02% 0.5 MG/2.5 ML VIAL.NEB. NEB SCH (15:58)
[2023-05-01] MEDS: ZOLPIDEM TARTRATE 5 MG TABLET PO ONE (01:15)
[2023-05-01] MEDS: guaiFENesin 200 MG/10 ML 10 ML UNIT-DOSE CUPS PO PRN (01:16)
[2023-05-01 07:42] LABS: HEMATOCRIT 37.4 % (35.4-49); HEMOGLOBIN 12.4 GM/dL (11.7-16.9); MCH 30.2 pg (25.7-33.7); MCHC 33.1 g/dl (32.0-35.9); MEAN CELL VOLUME 91.5 fl (80-96); MEAN PLT VOLUME 7.9 fl (7.5-11.1); PLATELET COUNT 197 10^3/uL (134-434); RBC 4.09 M/mm3 (4.00-5.60); WHITE BLOOD COUNT 11.4 K/mm3 (4.0-10.0)
[2023-05-01 08:16] LABS: POTASSIUM 3.9 mmol/L (3.5-5.1)
[2023-05-01 08:25] LABS: ALBUMIN 2.4 g/dl (3.4-5.0); BLOOD UREA NITROGEN 27.6 mg/dL (7-18); CALCIUM 7.9 mg/dL (8.5-10.1); MAGNESIUM 2.2 mg/dL (1.8-2.4)
[2023-05-01 08:28] LABS: CREATININE 0.7 mg/dL (0.55-1.3); PHOSPHOROUS 1.6 mg/dL (2.5-4.9)
[2023-05-01 08:30] LABS: BILIRUBIN,TOTAL 0.5 mg/dL (0.2-1); TOT PROT 4.7 g/dl (6.4-8.2)
[2023-05-01] MEDS: DEXTROSE 5%-WATER - 1,000 ML IV SCH (10:40)
[2023-05-01] MEDS: BENZOCAINE/MENTH/CETYLPYRD CL 1 EACH LOZENGE MM PRN (10:41)
[2023-05-01 16:09] VITALS: BMI 23.2
[2023-05-01 21:06] LABS: POTASSIUM 4.1 mmol/L (3.5-5.1)
[2023-05-01 21:07] LABS: CALCIUM 8.3 mg/dL (8.5-10.1)
[2023-05-01 21:12] LABS: CREATININE 0.9 mg/dL (0.55-1.3)
[2023-05-02] MEDS: ZOLPIDEM TARTRATE 5 MG TABLET PO ONE (01:37)
[2023-05-02 08:06] LABS: CHLORIDE 105 mmol/L (98-107); POTASSIUM 4.1 mmol/L (3.5-5.1); SODIUM 138 mmol/L (136-145)
[2023-05-02 08:10] LABS: CALCIUM 7.8 mg/dL (8.5-10.1); HEMATOCRIT 33.4 % (35.4-49); HEMOGLOBIN 10.9 GM/dL (11.7-16.9); MCH 30.1 pg (25.7-33.7); MCHC 32.8 g/dl (32.0-35.9); MEAN CELL VOLUME 91.9 fl (80-96); PLATELET COUNT 180 10^3/uL (134-434); RBC 3.63 M/mm3 (4.00-5.60); WHITE BLOOD COUNT 12.4 K/mm3 (4.0-10.0)
[2023-05-02 08:11] LABS: ALBUMIN 2.2 g/dl (3.4-5.0); ANION GAP 8 mmol/L (4-13); CO2 26 mmol/L (21-32); MAGNESIUM 2.1 mg/dL (1.8-2.4)
[2023-05-02 08:14] LABS: CREATININE 0.8 mg/dL (0.55-1.3); SGOT/AST 107 U/L (15-37); SGPT/ALT 775 U/L (13-61)
[2023-05-02 08:15] LABS: BILIRUBIN,TOTAL 0.4 mg/dL (0.2-1); TOT PROT 4.2 g/dl (6.4-8.2)
[2023-05-02 08:17] LABS: ALK PHOS 54 U/L (45-117)
[2023-05-02 08:19] LABS: GLUCOSE,RANDOM 439 mg/dL (74-106); PHOSPHOROUS 1.1 mg/dL (2.5-4.9)
[2023-05-02] MEDS: NAPH,MB-DB/K PH,MBDB POWDER PACKET PO ONE (09:58)
[2023-05-02] MEDS: SODIUM PHOSPHATE - 30 MM in SODIUM CHLORIDE 500 ML IVPB ONE (13:56)
[2023-05-02 18:55] VITALS: BP 118/56; PULSE 65; RESP 19; TEMP 97.6
== END 2023-05-02 20:30 | disposition home or self-care (01) | DRG 177 ==
LOC: JER 08:15 → JERBED 15:11 → JICU 18:09 → J4S 04-29 14:22
PROVIDERS: ADMIT Internal Medicine Pulmonary Disease; ATTEND Internal Medicine
PROC: 05HM33Z Insertion of Infusion Device into Right Internal Jugular Vein, Percutaneous Approach (ICD-10-PCS; principal; 2023-04-28)
PROC: B543ZZA Ultrasonography of Right Jugular Veins, Guidance (ICD-10-PCS; 2023-04-28)
PROC: XW033E5 Introduction of Remdesivir Anti-infective into Peripheral Vein, Percutaneous Approach, New Technology Group 5 (ICD-10-PCS; 2023-04-28)
DX: U07.1 COVID-19 (principal); J12.81 Pneumonia due to SARS-associated coronavirus; J96.01 Acute respiratory failure with hypoxia; J44.1 Chronic obstructive pulmonary disease with (acute) exacerbation; K86.2 Cyst of pancreas; E87.0 Hyperosmolality and hypernatremia; I48.91 Unspecified atrial fibrillation; K57.90 Diverticulosis of intestine, part unspecified, without perforation or abscess without bleeding; I25.10 Atherosclerotic heart disease of native coronary artery without angina pectoris; I10 Essential (primary) hypertension; K31.84 Gastroparesis; K72.90 Hepatic failure, unspecified without coma; E78.5 Hyperlipidemia, unspecified; N40.0 Benign prostatic hyperplasia without lower urinary tract symptoms; K58.9 Irritable bowel syndrome, unspecified; R79.89 Other specified abnormal findings of blood chemistry; I71.20 Thoracic aortic aneurysm, without rupture, unspecified; R74.8 Abnormal levels of other serum enzymes; G47.00 Insomnia, unspecified; Z85.46 Personal history of malignant neoplasm of prostate; Z88.1 Allergy status to other antibiotic agents; Z99.81 Dependence on supplemental oxygen; Z86.711 Personal history of pulmonary embolism; Z86.718 Personal history of other venous thrombosis and embolism; Z95.5 Presence of coronary angioplasty implant and graft
CPT/HCPCS: 0241U-QW; 36415; 36600; 71045-TC-FY; 71275-TC; 76705-TC; 80048; 80053; 80076; 80307; 81003; 82308; 82550; 82787; 82803; 82962; 82977; 83036; 83516; 83735; 83880; 84100; 84436; 84443; 84484; 85025; 85027; 85379; 85610; 85651; 85730; 86038; 86140; 86376; 86705; 86708; 86709; 86803; 87040; 87081; 87086; 87340; 87517; 87899; 93005; 93010; 93306-TC; 93970-TC; 94640; 94660; 97116-GP; 97161-GP; 99291; J0248; J1100; Q9967